=== PATIENT | female | born 1950 | race African-American/Black ===

== ENCOUNTER 2016-03-12 10:37 | Emergency (ER) | payer MEDICARE, OTHER ==
--- NOTE | 2016-03-12 11:42 | ED ---
General Adult HPI - General Chief complaint: Extremity Problem,Nontraumatic Stated complaint: blood clot in groin, left leg problem Time Seen by Provider: 03/12/16 11:29 Source: patient, RN notes reviewed Mode of arrival: ambulatory Limitations: no limitations - History of Present Illness Initial comments: Patient is a pleasant 66-year-old female presenting to the emergency department with left anterior thigh pain. Onset was around 24 hours ago. Discomfort is moderate to severe. Discomfort does increase somewhat with movement. No weakness. Patient was diagnosed with a blood clot of her left leg on January 20. Patient states she was placed on eliquis, then change to xarelto 9 days ago. No history of similar symptoms previously. Patient does have chronic neuropathy. Patient does have chronic right-sided sciatica. - Related Data Home Medications Medication Instructions Recorded Confirmed Rosuvastatin [Crestor] 20 mg PO HS 06/07/15 03/12/16 Insulin Glargine [Lantus] 15 - 18 unit SQ HS 11/09/15 03/12/16 Aspirin 81 mg PO DAILY 01/20/16 03/12/16 Insulin Aspart [NovoLOG Flexpen] 8 units SQ AC-BRKFST 01/30/16 03/12/16 Insulin Aspart [NovoLOG Flexpen] 8 units SQ AC-SUPPER 01/30/16 03/12/16 Insulin Aspart [NovoLOG Flexpen] 10 units SQ AC-LUNCH 01/30/16 03/12/16 Insulin Aspart [NovoLOG Flexpen] See Protocol SQ AC-TID 03/12/16 03/12/16 Lisinopril [Prinivil] 20 mg PO HS 03/12/16 03/12/16 Rivaroxaban [Xarelto] 20 mg PO DAILY 03/12/16 03/12/16 amLODIPine [Norvasc] 10 mg PO DAILY 03/12/16 03/12/16 Previous Rx's Medication Instructions Recorded Oxymetazoline 0.05% Nasl Ramer 2 spray NASAL BID #1 spray 02/01/16 [Afrin 0.05% Nasal Ramer] guaiFENesin [Mucinex] 600 mg PO Q12HR #20 tablet.er 02/01/16 Hydrocodone/Acetaminophen [Isabella 2 each PO Q6HR PRN #20 tab 03/12/16 5-325] Allergies Allergy/AdvReac Type Severity Reaction Status Date / Time morphine Allergy PASSES OUT Verified 03/12/16 11:47 nitroglycerin Allergy PASSES OUT Verified 03/12/16 11:47 Sulfa (Sulfonamide AdvReac Itching Verified 03/12/16 11:47 Antibiotics) Review of Systems ROS Statement: Those systems with pertinent positive or pertinent negative responses have been documented in the HPI. ROS Other: All systems not noted in ROS Statement are negative. Constitutional: Denies: fever Eyes: Denies: eye pain ENT: Denies: ear pain Respiratory: Denies: cough Cardiovascular: Denies: chest pain Endocrine: Denies: fatigue Gastrointestinal: Denies: abdominal pain Genitourinary: Denies: dysuria Musculoskeletal: Reports: back pain Skin: Denies: rash Neurological: Denies: weakness Past Medical History Past Medical History: Coronary Artery Disease (CAD), Diabetes Mellitus, Deep Vein Thrombosis (DVT), GERD/Reflux, Hyperlipidemia, Hypertension, Osteoarthritis (OA) Additional Past Medical History / Comment(s): vertigo, sinus problems, CONSTIPATION, COLLAPSED LUNG(HAD A C/T) History of Any Multi-Drug Resistant Organisms: None Reported Past Surgical History: Appendectomy, Cholecystectomy, Heart Catheterization With Stent, Hysterectomy, Tubal Ligation Additional Past Surgical History / Comment(s): hemorrhoidectomy, COLLAPSED LUNG HAD A C/T, TOSIN CATARACTS Past Anesthesia/Blood Transfusion Reactions: No Reported Reaction Date of Last Stent Placement:: Past Psychological History: No Psychological Hx Reported Smoking Status: Former smoker Past Alcohol Use History: None Reported Additional Past Alcohol Use History / Comment(s): STARTED SMOKING AT AGE 12, QUIT AT AGE 26 SMOKED 1 PPD Past Drug Use History: None Reported - Past Family History Mother Family Medical History: Hypertension, Seizure Disorder Father Family Medical History: Renal Disease Additional Family Medical History / Comment(s): kidney failure Son(s) Family Medical History: No Reported History Sister(s) Family Medical History: Cancer, Diabetes Mellitus, Hypertension General Exam Limitations: no limitations General appearance: alert, in no apparent distress Head exam: Present: atraumatic Eye exam: Present: normal appearance, PERRL ENT exam: Present: normal oropharynx Neck exam: Present: normal inspection Respiratory exam: Present: normal lung sounds bilaterally Cardiovascular Exam: Present: regular rate, normal rhythm Expanded Peripheral pulses: 1+: Femoral (R), Femoral (L), Posterior Tibialis (R), Posterior Tibialis (L), Dorsalis Pedis (R), Dorsalis Pedis (L) GI/Abdominal exam: Present: soft. Absent: tenderness Extremities exam: Present: tenderness (Left anterior thigh), pedal edema (+1 bilateral), other (Pedal pulses confirmed with Doppler.) Back exam: Present: tenderness (Bilateral sciatic region) Neurological exam: Present: alert. Absent: motor sensory deficit Psychiatric exam: Present: normal affect, normal mood Skin exam: Present: normal color, other (No skin abnormality of the left leg). Absent: rash Course Vital Signs 03/12/16 10:51 Temperature 97.6 F Pulse Rate 82 Respiratory 18 Rate Blood Pressure 142/80 O2 Sat by Pulse 100 Oximetry Medical Decision Making - Medical Decision Making Patient reexamined and resting complain bed. Patient and family updated on results and need for follow-up. - Radiology Data Radiology results: report reviewed (Ultrasound shows no deep venous thrombosis.) , image reviewed (Lumbar spine x-ray shows some disc space narrowing. No acute fracture.) Disposition Clinical Impression: Leg pain Disposition: HOME SELF-CARE Condition: Stable Instructions: Leg Pain (ED), Lumbar Radiculopathy (ED) Additional Instructions: Please follow-up to primary care physician as well as orthopedics in the next couple of days for recheck. Return for increased pain, weakness, redness, fever , swelling, worsening symptoms or other concerns. Prescriptions: Hydrocodone/Acetaminophen [Isabella 5-325] 2 each PO Q6HR PRN #20 tab PRN Reason: Pain Referrals: Mary Heath MD [Primary Care Provider] - 1-2 days Kole Kilgore DO [Doctor of Osteopathic Medicine] - 1-2 days
--- NOTE | 2016-03-12 12:48 | US ---
EXAMINATION TYPE: US venous doppler duplex LE LT DATE OF EXAM: 03/12/2016 12:23 PM COMPARISON: NONE CLINICAL HISTORY: Pain. SIDE PERFORMED: Left VESSELS IMAGED: External Iliac Vein (EIV) Common Femoral Vein Deep Femoral Vein Greater Saphenous Vein * Femoral Vein Popliteal Vein Small Saphenous Vein * Proximal Calf Veins (* superficial vessels) There appears to be some thrombus in the GSV (A superficial vein). No evidence of DVT. IMPRESSION: No evidence for left lower extremity DVT. Superficial thrombus noted.
--- NOTE | 2016-03-12 13:19 | XR ---
EXAMINATION TYPE: XR lumbar spine 2 or 3V DATE OF EXAM: 03/12/2016 1:15 PM CLINICAL HISTORY: pain TECHNIQUE: Three views of the lumbar spine are submitted. COMPARISON: None. FINDINGS: There are 5 lumbar type vertebral bodies identified. The lumbar spine shows satisfactory alignment w ithout evidence of acute fracture or dislocation. Vertebral body heights are within normal limits. Moderate degenerative disc space narrowing is noted. Grade 1 anterolisthesis L4 and L5 measuring 3 mm . Severe facet joint arthropathy. The overlying soft tissue appears unremarkable. IMPRESSION: No acute fracture or dislocation is seen in the lumbar spine. ICD 10 NO FRACTURE, INITIAL EVALUATION
[2016-03-12] MEDS ORDERED: HYDROcodone/APAP 5-325MG 1 EACH TAB PO STA (13:32)
[2016-03-12 13:57] VITALS: BP 177/86; PULSE 88; RESP 16; TEMP 97.4
== END 2016-03-12 14:02 | disposition home or self-care (01) ==
LOC: EC 10:37
DX: M54.16 Radiculopathy, lumbar region (principal); M79.652 Pain in left thigh; I25.10 Atherosclerotic heart disease of native coronary artery without angina pectoris; E11.9 Type 2 diabetes mellitus without complications; E78.5 Hyperlipidemia, unspecified; I10 Essential (primary) hypertension; Z86.718 Personal history of other venous thrombosis and embolism; Z87.891 Personal history of nicotine dependence; Z79.82 Long term (current) use of aspirin; Z79.4 Long term (current) use of insulin; Z79.899 Other long term (current) drug therapy; Z88.2 Allergy status to sulfonamides; Z88.5 Allergy status to narcotic agent; Z88.8 Allergy status to other drugs, medicaments and biological substances
CPT/HCPCS: 72100; 99284

== ENCOUNTER 2016-05-27 14:21 | Emergency (ER) | payer MEDICARE, OTHER ==
[2016-05-27 14:38] LABS: Glucose,Whole Blood 115 mg/dL (75-99)
[2016-05-27] MEDS ORDERED: ASPIRIN 325 MG TAB PO STA (15:01)
--- NOTE | 2016-05-27 15:10 | ED ---
General Adult HPI - General Chief complaint: Recheck/Abnormal Lab/Rx Stated complaint: Blood Sugar Source: patient Mode of arrival: EMS Limitations: no limitations - History of Present Illness Initial comments: 66-year-old Afro-[place] female with past medical history of CAD, DM, DVT, GERD , HLD, HTN, OA and surgical history of appendectomy, cholecystectomy, heart cath with stent, hysterectomy, and tubal ligation presented for evaluation of altered mental status. Patient states that she woke up this morning and took her insulin but hadn't eaten as she was busy preparing for Saturday. She would occasionally try Little bits and pieces of the food but did not have a full meal. She began to feel very tired and laid down to take a nap. She awoke to find EMS in the house who had Sterling given her glucose through her IV. She returned to baseline and was brought to the emergency department for further treatment and evaluation. She denies any recent chest pain, nausea, vomiting, fevers, chills, diarrhea/constipation, dysuria, abdominal pain. - Related Data Home Medications Medication Instructions Recorded Confirmed Rosuvastatin [Crestor] 20 mg PO HS 06/07/15 05/27/16 Insulin Glargine [Lantus] 15 - 18 unit SQ HS 11/09/15 05/27/16 Aspirin 81 mg PO DAILY 01/20/16 05/27/16 Insulin Aspart [NovoLOG Flexpen] 8 units SQ AC-BRKFST 01/30/16 05/27/16 Insulin Aspart [NovoLOG Flexpen] 10 units SQ AC-LUNCH 01/30/16 05/27/16 Insulin Aspart [NovoLOG Flexpen] 15 units SQ AC-SUPPER 01/30/16 05/27/16 amLODIPine [Norvasc] 5 mg PO DAILY 05/27/16 05/27/16 Allergies Allergy/AdvReac Type Severity Reaction Status Date / Time morphine Allergy PASSES OUT Verified 05/27/16 14:43 nitroglycerin Allergy PASSES OUT Verified 05/27/16 14:43 Sulfa (Sulfonamide AdvReac Itching Verified 05/27/16 14:43 Antibiotics) Review of Systems ROS Statement: Those systems with pertinent positive or pertinent negative responses have been documented in the HPI. ROS Other: All systems not noted in ROS Statement are negative. Constitutional: Denies: fever, chills Eyes: Denies: eye pain, vision change ENT: Denies: ear pain, throat pain Respiratory: Denies: cough, dyspnea Cardiovascular: Denies: chest pain, palpitations Gastrointestinal: Denies: abdominal pain, nausea, vomiting, diarrhea, constipation Genitourinary: Denies: urgency, dysuria Musculoskeletal: Denies: back pain, arthralgia, myalgia Skin: Denies: rash, lesions Neurological: Reports: other (Altered mental status). Denies: headache, weakness, numbness, paresthesias, confusion Psychiatric: Denies: anxiety, depression Hematological/Lymphatic: Denies: easy bleeding, easy bruising Past Medical History Past Medical History: Coronary Artery Disease (CAD), Diabetes Mellitus, Deep Vein Thrombosis (DVT), GERD/Reflux, Hyperlipidemia, Hypertension, Osteoarthritis (OA) Additional Past Medical History / Comment(s): vertigo, sinus problems, CONSTIPATION, COLLAPSED LUNG(HAD A C/T) History of Any Multi-Drug Resistant Organisms: None Reported Past Surgical History: Appendectomy, Cholecystectomy, Heart Catheterization With Stent, Hysterectomy, Tubal Ligation Additional Past Surgical History / Comment(s): hemorrhoidectomy, COLLAPSED LUNG HAD A C/T, TOSIN CATARACTS Past Anesthesia/Blood Transfusion Reactions: No Reported Reaction Date of Last Stent Placement:: Past Psychological History: No Psychological Hx Reported Smoking Status: Former smoker Past Alcohol Use History: None Reported Additional Past Alcohol Use History / Comment(s): STARTED SMOKING AT AGE 12, QUIT AT AGE 26 SMOKED 1 PPD Past Drug Use History: None Reported - Past Family History Mother Family Medical History: Hypertension, Seizure Disorder Father Family Medical History: Renal Disease Additional Family Medical History / Comment(s): kidney failure Son(s) Family Medical History: No Reported History Sister(s) Family Medical History: Cancer, Diabetes Mellitus, Hypertension General Exam Limitations: no limitations General appearance: alert, in no apparent distress Head exam: Present: atraumatic, normocephalic, normal inspection Eye exam: Present: normal appearance, PERRL, EOMI. Absent: scleral icterus, conjunctival injection, periorbital swelling ENT exam: Present: normal exam, mucous membranes moist Neck exam: Present: normal inspection. Absent: tenderness, meningismus, lymphadenopathy Respiratory exam: Present: normal lung sounds bilaterally. Absent: respiratory distress, wheezes, rales, rhonchi, stridor Cardiovascular Exam: Present: regular rate, normal rhythm, normal heart sounds. Absent: systolic murmur, diastolic murmur, rubs, gallop, clicks GI/Abdominal exam: Present: soft, normal bowel sounds. Absent: distended, tenderness, guarding, rebound, rigid Rectal exam: Present: deferred Extremities exam: Present: normal inspection, full ROM, normal capillary refill. Absent: tenderness, pedal edema, joint swelling, calf tenderness Back exam: Present: normal inspection Neurological exam: Present: alert, oriented X3, CN II-XII intact Psychiatric exam: Present: normal affect, normal mood Skin exam: Present: warm, dry, intact, normal color. Absent: rash Course Vital Signs 05/27/16 05/27/16 14:25 15:33 Temperature 96.9 F L Pulse Rate 62 67 Respiratory 16 18 Rate Blood Pressure 168/84 176/86 O2 Sat by Pulse 99 100 Oximetry EKG Findings - EKG Comments: EKG Findings:: Normal sinus rhythm with PVCs and a ventricular rate of 60, JEAN 164, QRS 106, QT/QTc 430/430. Medical Decision Making - Medical Decision Making 66-year-old -[place] female with past medical history of insulin- dependent diabetes presenting for evaluation of altered mental status. She took her 8 units of NovoLog today but didn't have any meals as she was gone about her preparation for Saturday. She laid down to take a nap and was woken by EMS who required an IV to give her insulin. Initial blood glucose was 21 and increased to greater than 250 after providing IV dextrose. She denies any recent illnesses or feeling unwell. Just feeling a little tired lately. On physical examination there are no abnormalities. This is likely due to her taking her insulin this morning and not having any food however will obtain a workup to rule out any infectious etiology. Labs revealed no significant abnormalities and chest x-ray showed no acute process. The patient's blood sugar remained inappropriate ranges and she was also given food during stay. Physical exam did not change and she was informed of all results. She was also informed that should be discharged with instructions to follow-up with her primary care physician but to return if her symptoms should worsen or persist. The patient and family acknowledged an understanding of this information and agreed with this plan of care. - Lab Data Result diagrams: 05/27/16 15:24 04/16/17 15:24 Lab Results 05/27/16 05/27/16 05/27/16 Range/Units 14:32 15:24 15:24 WBC 3.2 L (3.8-10.6) k/uL RBC 4.17 (3.80-5.40) m/uL Hgb 11.5 (11.4-16.0) gm/dL Hct 37.3 (34.0-46.0) % MCV 89.5 (80.0-100.0) fL MCH 27.6 (25.0-35.0) pg MCHC 30.9 L (31.0-37.0) g/dL RDW 14.4 (11.5-15.5) % Plt Count 235 (150-450) k/uL Neutrophils % 40 % Lymphocytes % 49 % Monocytes % 5 % Eosinophils % 3 % Basophils % 1 % Neutrophils # 1.3 (1.3-7.7) k/uL Lymphocytes # 1.5 (1.0-4.8) k/uL Monocytes # 0.2 (0-1.0) k/uL Eosinophils # 0.1 (0-0.7) k/uL Basophils # 0.0 (0-0.2) k/uL Manual Slide Review Performed Sodium 142 (137-145) mmol/L Potassium 3.3 L (3.5-5.1) mmol/L Chloride 103 (98-107) mmol/L Carbon Dioxide 31 H (22-30) mmol/L Anion Gap 8 mmol/L BUN 16 (7-17) mg/dL Creatinine 0.64 (0.52-1.04) mg/dL Est GFR (MDRD) Af Amer >60 (>60 ml/min/1.73 sqM) Est GFR (MDRD) Non-Af >60 (>60 ml/min/1.73 sqM) Glucose 93 (74-99) mg/dL POC Glucose (mg/dL) 115 H (75-99) mg/dL POC Glu Manager Interventional ID Calcium 9.1 (8.4-10.2) mg/dL Troponin I (0.000-0.034) ng/mL Urine Color Urine Appearance (Clear) Urine pH (5.0-8.0) Ur Specific Franklin (1.001-1.035) Urine Protein (Negative) Urine Glucose (UA) (Negative) Urine Ketones (Negative) Urine Blood (Negative) Urine Nitrite (Negative) Urine Bilirubin (Negative) Urine Urobilinogen (<2.0) mg/dL Ur Leukocyte Esterase (Negative) Urine RBC (0-5) /hpf Urine WBC (0-5) /hpf Ur Squamous Epith Cells (0-4) /hpf Urine Bacteria (None) /hpf Urine Mucus (None) /hpf 05/27/16 05/27/16 05/27/16 Range/Units 15:24 15:24 15:25 WBC (3.8-10.6) k/uL RBC (3.80-5.40) m/uL Hgb (11.4-16.0) gm/dL Hct (34.0-46.0) % MCV (80.0-100.0) fL MCH (25.0-35.0) pg MCHC (31.0-37.0) g/dL RDW (11.5-15.5) % Plt Count (150-450) k/uL Neutrophils % % Lymphocytes % % Monocytes % % Eosinophils % % Basophils % % Neutrophils # (1.3-7.7) k/uL Lymphocytes # (1.0-4.8) k/uL Monocytes # (0-1.0) k/uL Eosinophils # (0-0.7) k/uL Basophils # (0-0.2) k/uL Manual Slide Review Sodium (137-145) mmol/L Potassium (3.5-5.1) mmol/L Chloride (98-107) mmol/L Carbon Dioxide (22-30) mmol/L Anion Gap mmol/L BUN (7-17) mg/dL Creatinine (0.52-1.04) mg/dL Est GFR (MDRD) Af Amer (>60 ml/min/1.73 sqM) Est GFR (MDRD) Non-Af (>60 ml/min/1.73 sqM) Glucose (74-99) mg/dL POC Glucose (mg/dL) 95 (75-99) mg/dL POC Glu Manager Interventional ID Maria Dolores Jacquie Calcium (8.4-10.2) mg/dL Troponin I <0.012 (0.000-0.034) ng/mL Urine Color Light Yellow Urine Appearance Cloudy H (Clear) Urine pH 7.0 (5.0-8.0) Ur Specific Franklin 1.012 (1.001-1.035) Urine Protein Negative (Negative) Urine Glucose (UA) 2+ H (Negative) Urine Ketones Negative (Negative) Urine Blood Negative (Negative) Urine Nitrite Negative (Negative) Urine Bilirubin Negative (Negative) Urine Urobilinogen <2.0 (<2.0) mg/dL Ur Leukocyte Esterase Negative (Negative) Urine RBC 1 (0-5) /hpf Urine WBC 2 (0-5) /hpf Ur Squamous Epith Cells 1 (0-4) /hpf Urine Bacteria Moderate H (None) /hpf Urine Mucus Rare H (None) /hpf 05/27/16 Range/Units 16:00 WBC (3.8-10.6) k/uL RBC (3.80-5.40) m/uL Hgb (11.4-16.0) gm/dL Hct (34.0-46.0) % MCV (80.0-100.0) fL MCH (25.0-35.0) pg MCHC (31.0-37.0) g/dL RDW (11.5-15.5) % Plt Count (150-450) k/uL Neutrophils % % Lymphocytes % % Monocytes % % Eosinophils % % Basophils % % Neutrophils # (1.3-7.7) k/uL Lymphocytes # (1.0-4.8) k/uL Monocytes # (0-1.0) k/uL Eosinophils # (0-0.7) k/uL Basophils # (0-0.2) k/uL Manual Slide Review Sodium (137-145) mmol/L Potassium (3.5-5.1) mmol/L Chloride (98-107) mmol/L Carbon Dioxide (22-30) mmol/L Anion Gap mmol/L BUN (7-17) mg/dL Creatinine (0.52-1.04) mg/dL Est GFR (MDRD) Af Amer (>60 ml/min/1.73 sqM) Est GFR (MDRD) Non-Af (>60 ml/min/1.73 sqM) Glucose (74-99) mg/dL POC Glucose (mg/dL) 164 H (75-99) mg/dL POC Glu Manager Interventional ID Jacquie Whitten Calcium (8.4-10.2) mg/dL Troponin I (0.000-0.034) ng/mL Urine Color Urine Appearance (Clear) Urine pH (5.0-8.0) Ur Specific Franklin (1.001-1.035) Urine Protein (Negative) Urine Glucose (UA) (Negative) Urine Ketones (Negative) Urine Blood (Negative) Urine Nitrite (Negative) Urine Bilirubin (Negative) Urine Urobilinogen (<2.0) mg/dL Ur Leukocyte Esterase (Negative) Urine RBC (0-5) /hpf Urine WBC (0-5) /hpf Ur Squamous Epith Cells (0-4) /hpf Urine Bacteria (None) /hpf Urine Mucus (None) /hpf Disposition Clinical Impression: Hypoglycemia, Altered mental status, unspecified Disposition: HOME SELF-CARE Condition: Stable Instructions: Hypoglycemia in a Person with Diabetes (ED) Time of Disposition: 16:39
[2016-05-27 15:26] LABS: Glucose,Whole Blood 95 mg/dL (75-99)
[2016-05-27 15:37] LABS: Basophils % (A) 1 %; CH 27.8; CHCM 31.2; Eosinophils # (A) 0.1 k/uL (0-0.7); Eosinophils % (A) 3 %; HCT 37.3 % (34.0-46.0); HDW 2.19; HGB 11.5 gm/dL (11.4-16.0); Luc # (Auto) 0.07; Luc % (Auto) 2; Lymphocytes # (A) 1.5 k/uL (1.0-4.8); Lymphocytes % (A) 49 %; MCH 27.6 pg (25.0-35.0); MCHC 30.9 g/dL (31.0-37.0); MCV 89.5 fL (80.0-100.0); Mean Platelet Volume 8.5; Monocytes # (A) 0.2 k/uL (0-1.0); Monocytes % (A) 5 %; Neutrophils # (A) 1.3 k/uL (1.3-7.7); Neutrophils % (A) 40 %; RBC 4.17 m/uL (3.80-5.40); RDW 14.4 % (11.5-15.5); WBC 3.2 k/uL (3.8-10.6); WBC (Perox) 2.99
[2016-05-27 15:47] LABS: Anion Gap 8 mmol/L; Appearance,Urine Cloudy (Clear); Bacteria,Urine Moderate /hpf; Bilirubin,Urine Negative (Negative); Blood Urea Nitrogen 16 mg/dL (7-17); Calcium 9.1 mg/dL (8.4-10.2); Carbon Dioxide 31 mmol/L (22-30); Chloride 103 mmol/L (98-107); Glucose 93 mg/dL (74-99); Glucose,Urine (UA) 2+ (Negative); Ketones,Urine Negative (Negative); Leukocyte Esterase,Urine Negative (Negative); Mucus,Urine Rare /hpf; Nitrite,Urine Negative (Negative); Non-African American GFR(MDRD) >60 (>60 ml/min/1.73 sqM); Particle Count 89573; Potassium 3.3 mmol/L (3.5-5.1); Protein,Urine Negative (Negative); RBC,Urine 1 /hpf (0-5); Sodium 142 mmol/L (137-145); Specific Gravity,Urine 1.012 (1.001-1.035); Squamous Epithelial Cell,Urine 1 /hpf (0-4); UA Billing (MACRO vs. MICRO) MICRO; Urobilinogen,Urine <2.0 mg/dL (<2.0); WBC,Urine 2 /hpf (0-5)
--- NOTE | 2016-05-27 15:47 | XR ---
EXAMINATION TYPE: XR chest 2V DATE OF EXAM: 05/27/2016 3:40 PM COMPARISON: 01/29/2016 HISTORY: Weakness TECHNIQUE: Frontal and lateral views of the chest are obtained. FINDINGS: There is no heart failure nor confluent pneumonic infiltrate. Thoracic aorta is atheromato us. There is no sign of pleural effusion. There is spurring in the thoracic spine. IMPRESSION: No active cardiopulmonary disease. No change.
[2016-05-27 15:54] LABS: Manual Review Performed
[2016-05-27 16:04] LABS: Glucose,Whole Blood 164 mg/dL (75-99)
[2016-05-27 16:41] LABS: Glucose,Whole Blood 198 mg/dL (75-99)
[2016-05-27 17:04] VITALS: BP 126/78; PULSE 78; RESP 16; TEMP 97.8
== END 2016-05-27 17:03 | disposition home or self-care (01) ==
LOC: EC 14:21
DX: E11.649 Type 2 diabetes mellitus with hypoglycemia without coma (principal); R41.82 Altered mental status, unspecified; I10 Essential (primary) hypertension; E78.5 Hyperlipidemia, unspecified; M19.90 Unspecified osteoarthritis, unspecified site; I25.10 Atherosclerotic heart disease of native coronary artery without angina pectoris; Z87.891 Personal history of nicotine dependence; Z79.4 Long term (current) use of insulin; Z79.82 Long term (current) use of aspirin; Z79.899 Other long term (current) drug therapy; Z88.2 Allergy status to sulfonamides; Z88.5 Allergy status to narcotic agent; Z88.8 Allergy status to other drugs, medicaments and biological substances; Z83.3 Family history of diabetes mellitus
CPT/HCPCS: 36415; 71020; 80048; 81001; 84484; 85025; 93005; 99285

== ENCOUNTER → 2016-05-30 | Outpatient (CLI) | payer MEDICARE, OTHER ==
--- NOTE | 2016-05-30 14:20 | US ---
EXAMINATION TYPE: US venous doppler duplex LE BI DATE OF EXAM: 05/30/2016 2:13 PM COMPARISON: Ultrasound CLINICAL HISTORY: I82.492 ACUTE EMBOLISM AND THROMBOSIS OF DEEP VEIN OF LT LE. Right leg pain x 1 yea r, history of superficial thrombus in GSV, not on blood thinners SIDE PERFORMED: Bilateral TECHNIQUE: The lower extremity deep venous system is examined utilizing real time linear array sonog ar with graded compression, doppler sonography and color-flow sonography. VESSELS IMAGED: External Iliac Vein (EIV) Common Femoral Vein Deep Femoral Vein Greater Saphenous Vein * Femoral Vein Popliteal Vein Small Saphenous Vein * Proximal Calf Veins (* superficial vessels) Right Leg: Appears negative for DVT Left Leg: Appears negative for DVT IMPRESSION: No evidence for DVT at this time.
== END | disposition home or self-care (01) ==
LOC: RADUSWWP 13:44
PROVIDERS: ATTEND Internal Medicine
DX: I82.492 Acute embolism and thrombosis of other specified deep vein of left lower extremity (principal)
CPT/HCPCS: 93970

== ENCOUNTER 2016-09-15 06:37 | Inpatient (IN) | payer MEDICARE, OTHER ==
--- NOTE | 2016-09-15 07:05 | ED ---
Chest Pain HPI - General Source: patient Mode of arrival: wheelchair Limitations: no limitations <Kasi Guzman - Last Filed: 09/15/16 07:04> - General Source: patient, family, RN notes reviewed Limitations: no limitations <Stef Gutierrez - Last Filed: 09/15/16 11:46> - General Chief Complaint: Chest Pain Stated Complaint: Chest pain - History of Present Illness Initial Comments: Patient is a pleasant 66-year-old female presenting to the emergency department with concerns for high blood pressure. Blood pressure at home has been as high as 195/110. Patient admits to being somewhat upset yesterday because the doctor was upset her for not using her sleep apnea machine. Patient states she has not been using it because it looks like a lease examiner's mask. Patient states she did not sleep well last night and checked her blood pressure multiple times. Patient states she did have an episode of chest discomfort on arrival to the emergency department. Patient states it just lasted a couple minutes. Discomfort felt sharp and tight. Patient did feel somewhat short of breath. No nausea or diaphoresis. Discomfort is now resolved. Patient did not take her blood pressure medicine this morning. (Stef Gutierrez) - Related Data Home Medications Medication Instructions Recorded Confirmed Rosuvastatin [Crestor] 20 mg PO HS 06/07/15 09/15/16 Insulin Glargine [Lantus] 15 - 18 unit SQ HS 11/09/15 09/15/16 Aspirin 81 mg PO DAILY 01/20/16 09/15/16 Insulin Aspart [NovoLOG Flexpen] 8 units SQ AC-BRKFST 01/30/16 09/15/16 Insulin Aspart [NovoLOG Flexpen] 10 units SQ AC-LUNCH 01/30/16 09/15/16 Insulin Aspart [NovoLOG Flexpen] 15 units SQ AC-SUPPER 01/30/16 09/15/16 amLODIPine [Norvasc] 5 mg PO DAILY 05/27/16 09/15/16 Allergies Allergy/AdvReac Type Severity Reaction Status Date / Time morphine Allergy PASSES OUT Verified 09/15/16 10:20 nitroglycerin Allergy PASSES OUT Verified 09/15/16 10:20 Sulfa (Sulfonamide AdvReac Itching Verified 09/15/16 10:20 Antibiotics) Review of Systems ROS Other: All systems not noted in ROS Statement are negative. <Kasi Guzman - Last Filed: 09/15/16 07:04> ROS Other: All systems not noted in ROS Statement are negative. Constitutional: Denies: fever Eyes: Denies: eye pain ENT: Denies: ear pain Respiratory: Denies: cough Cardiovascular: Reports: chest pain Endocrine: Denies: fatigue Gastrointestinal: Denies: abdominal pain Genitourinary: Denies: urgency Musculoskeletal: Denies: back pain Skin: Denies: rash Neurological: Denies: weakness <Stef Gutierrez - Last Filed: 09/15/16 11:46> ROS Statement: Those systems with pertinent positive or pertinent negative responses have been documented in the HPI. EKG Findings - EKG Results: EKG: interpreted by ERMD, sinus rhythm (EKG was read at 6:47 AM EKG shows a normal sinus rhythm of 80 MO interval 142 QRS 96 QT since QTC is 368/424 nonspecific anteroseptal changes. This is compared with EKG dated 05/27/16.) <Kasi Guzman Last Filed: 09/15/16 07:04> Past Medical History Past Medical History: Coronary Artery Disease (CAD), Diabetes Mellitus, Deep Vein Thrombosis (DVT), GERD/Reflux, Hyperlipidemia, Hypertension, Osteoarthritis (OA) Additional Past Medical History / Comment(s): vertigo, sinus problems, CONSTIPATION, COLLAPSED LUNG(HAD A C/T) History of Any Multi-Drug Resistant Organisms: None Reported Past Surgical History: Appendectomy, Cholecystectomy, Heart Catheterization With Stent, Hysterectomy, Tubal Ligation Additional Past Surgical History / Comment(s): hemorrhoidectomy, COLLAPSED LUNG HAD A C/T, TOSIN CATARACTS Past Anesthesia/Blood Transfusion Reactions: No Reported Reaction Date of Last Stent Placement:: Past Psychological History: No Psychological Hx Reported Smoking Status: Former smoker Past Alcohol Use History: None Reported Past Drug Use History: None Reported - Past Family History Mother Family Medical History: Hypertension, Seizure Disorder Father Family Medical History: Renal Disease Additional Family Medical History / Comment(s): kidney failure Son(s) Family Medical History: No Reported History Sister(s) Family Medical History: Cancer, Diabetes Mellitus, Hypertension <Kasi Guzman Last Filed: 09/15/16 07:04> General Exam Limitations: no limitations <Kasi Guzman Filed: 09/15/16 07:04> Limitations: no limitations General appearance: alert, in no apparent distress Head exam: Present: atraumatic Eye exam: Present: normal appearance, PERRL ENT exam: Present: normal oropharynx Neck exam: Present: normal inspection Respiratory exam: Present: normal lung sounds bilaterally Cardiovascular Exam: Present: regular rate, normal rhythm Expanded Peripheral pulses: 2+: Radial (R), Radial (L), Posterior Tibialis (R), Posterior Tibialis (L) GI/Abdominal exam: Present: soft. Absent: tenderness Extremities exam: Present: normal inspection. Absent: pedal edema, calf tenderness Neurological exam: Present: alert Psychiatric exam: Present: normal affect, normal mood Skin exam: Present: normal color <Stef Gutierrez - Last Filed: 09/15/16 11:46> Course <Kasi Guzman - Last Filed: 09/15/16 07:04> <Stef Gutierrez - Last Filed: 09/15/16 11:46> Vital Signs 09/15/16 09/15/16 09/15/16 06:48 07:15 07:20 Temperature 98.2 F Pulse Rate 80 Respiratory 20 69 H Rate Blood Pressure 206/108 226/91 187/84 O2 Sat by Pulse 100 95 Oximetry 09/15/16 09/15/16 09/15/16 08:00 09:00 10:00 Temperature Pulse Rate 68 66 71 Respiratory 18 17 18 Rate Blood Pressure 183/87 178/88 218/93 O2 Sat by Pulse 100 100 99 Oximetry 09/15/16 10:56 Temperature Pulse Rate 76 Respiratory 18 Rate Blood Pressure 198/106 O2 Sat by Pulse 100 Oximetry - Reevaluation(s) Reevaluation #1: 09/15/16 11:45 Computed tomography scan of the chest negative for pulmonary embolism. Patient reexamined in updated. Case was discussed with Dr. Heath, who will admit his patient. He did want 20 of labetalol given. Blood pressure does not improve patient may need beta ynes infusion and ICU admission. This time blood pressure has further improved systolic blood pressure 199. Patient will be started on oral beta blockers as well. (Stef Gutierrez) Critical Care Time Critical Care Time: Yes Total Critical Care Time: 32 <Stef Gutierrez - Last Filed: 09/15/16 11:46> Disposition <Kasi Guzman - Last Filed: 09/15/16 07:04> Decision Time: 11:46 <Stef Gutierrez - Last Filed: 09/15/16 11:46> Clinical Impression: Hypertensive urgency, Chest pain Disposition: ADMITTED IP TO THIS [facility] Referrals: Nonstaff,Physician [REFERRING] - 1-2 days
[2016-09-15] MEDS ORDERED: amLODIPine 5 MG TAB PO STA ×2 (07:23→10:07)
[2016-09-15] MEDS ORDERED: ASPIRIN 81 MG CHEW PO STA (07:25)
[2016-09-15 07:58] LABS: Basophils % (A) 1 %; CH 28.3; CHCM 32.1; Eosinophils # (A) 0.1 k/uL (0-0.7); Eosinophils % (A) 3 %; HCT 38.3 % (34.0-46.0); HGB 12.2 gm/dL (11.4-16.0); Luc # (Auto) 0.11; Luc % (Auto) 3; Lymphocytes # (A) 1.5 k/uL (1.0-4.8); Lymphocytes % (A) 45 %; MCH 28.3 pg (25.0-35.0); MCHC 31.9 g/dL (31.0-37.0); MCV 88.6 fL (80.0-100.0); Mean Platelet Volume 9.1; Monocytes # (A) 0.2 k/uL (0-1.0); Monocytes % (A) 7 %; Neutrophils # (A) 1.3 k/uL (1.3-7.7); Neutrophils % (A) 41 %; RBC 4.32 m/uL (3.80-5.40); WBC 3.2 k/uL (3.8-10.6); WBC (Perox) 3.24
[2016-09-15 08:12] LABS: ALT 29 U/L (9-52); AST 24 U/L (14-36); Alkaline Phosphatase 107 U/L (38-126); Anion Gap 7 mmol/L; Blood Urea Nitrogen 16 mg/dL (7-17); Calcium 9.2 mg/dL (8.4-10.2); Carbon Dioxide 31 mmol/L (22-30); Chloride 101 mmol/L (98-107); Glucose 244 mg/dL (74-99); Magnesium 1.8 mg/dL (1.6-2.3); Non-African American GFR(MDRD) >60 (>60 ml/min/1.73 sqM); Sodium 139 mmol/L (137-145); Total Bilirubin 0.4 mg/dL (0.2-1.3); Total Protein 6.4 g/dL (6.3-8.2)
[2016-09-15 08:19] LABS: Partial Thromboplastin Time 22.4 sec (22.0-30.0); Prothrombin Time 9.9 sec (9.0-12.0)
[2016-09-15 08:23] LABS: Creatine Kinase 234 U/L (30-135)
--- NOTE | 2016-09-15 08:27 | XR ---
EXAMINATION TYPE: XR chest 2V DATE OF EXAM: 09/15/2016 HISTORY: Chest Pain. REFERENCE: Previous study dated 05/27/2016. FINDINGS: The lungs are clear. Pleural spaces are clear. Heart size is within normal limits. IMPRESSION: NO ACUTE INTRATHORACIC ABNORMALITY.
[2016-09-15] MEDS ORDERED: RX INFO: IV CONTRAST WAS GIVEN 1 EACH MISC MISCELLANE PRN (08:31)
[2016-09-15 08:35] LABS: Troponin I <0.012 ng/mL (0.000-0.034)
[2016-09-15 08:36] LABS: Creatine Kinase MB 3.6 ng/mL (0.0-2.4)
--- NOTE | 2016-09-15 09:51 | CT ---
EXAMINATION TYPE: CT angio chest DATE OF EXAM: 09/15/2016 9:43 AM COMPARISON: Previous study dated 01/30/2016. HISTORY: chest pain CT DLP: 200.9 mGycm Automated exposure control for dose reduction was used. CONTRAST: CTA scan of the thorax is performed with IV Contrast, patient injected with 74 mL of Omnipaque 350, p ulmonary embolism protocol. . FINDINGS: There is some dependent atelectasis within the dependent portions of lungs. Lungs are other quiñonez clear. There is no significant axillary, internal mammary, mediastinal or hilar adenopathy. There is no evidence of pulmonary embolus. The aorta is normal in caliber without evidence of dissection. There is no pleural or The heart is mildly enlarged. There is coronary artery and other vascular calcifications. Visualized portions of the upper abdomen are unremarkable. There is hypertrophic spondylosis within the spine. IMPRESSION: 1. THIS EXAMINATION IS NEGATIVE FOR PULMONARY EMBOLUS. 2. CARDIOMEGALY. 3. DEGENERATIVE CHANGES WITHIN THE SPINE.
[2016-09-15] MEDS ORDERED: LABETALOL 5 MG/ML VIAL MDV IVP STA (11:14)
[2016-09-15] MEDS ORDERED: hydrALAZINE HCL 20 MG/ML 1 ML VIAL IVP PRN (11:49)
[2016-09-15 12:36] VITALS: RESP 16
[2016-09-15 12:49] LABS: Glucose,Whole Blood 264 mg/dL (75-99)
[2016-09-15] MEDS: METOPROLOL TARTRATE 25 MG TAB PO SCH ×2 (13:07→20:09)
[2016-09-15] MEDS: INSULIN LISPRO (humaLOG) 300 UNIT/3 ML VIAL SQ SCH (13:07)
--- NOTE | 2016-09-15 13:38 | P.CRDCN ---
History of Present Illness Consult date: 09/15/16 Chief complaint: Chest discomfort History of present illness: This is a pleasant 66-year-old -[place] female patient who follows with Dr. Hernandez as an outpatient with a known history of CAD and prior stenting of the PDA of RCA 2010, diabetes, hypertension, and possible sleep apnea, came in to the hospital because of uncontrolled hypertension. The patient states that over the last several days her blood pressure has been out of control. The systolic blood pressure was more than 200 mmHg. Beside that, she has been experiencing intermittent episodes of sharp chest discomfort of brief duration. The patient stated that she was taking her blood pressure medications at home but she was not compliant with her BiPAP machine. At home the patient was on amlodipine at 5 mg daily which was assumed and metoprolol was added to the current medical treatment. The blood pressure has been better controlled. The patient had an EKG showed sinus rhythm with early repolarization. She underwent a chest x-ray which showed no acute abnormalities. She had also CTA showed no PE. The first set of cardiac enzymes came in to be normal. Past Medical History Past Medical History: Coronary Artery Disease (CAD), Diabetes Mellitus, Deep Vein Thrombosis (DVT), GERD/Reflux, Hyperlipidemia, Hypertension, Osteoarthritis (OA) Additional Past Medical History / Comment(s): vertigo, sinus problems, CONSTIPATION, COLLAPSED LUNG(HAD A C/T) History of Any Multi-Drug Resistant Organisms: None Reported Past Surgical History: Appendectomy, Cholecystectomy, Heart Catheterization With Stent, Hysterectomy, Tubal Ligation Additional Past Surgical History / Comment(s): hemorrhoidectomy, COLLAPSED LUNG HAD A C/T, TOSIN CATARACTS Past Anesthesia/Blood Transfusion Reactions: No Reported Reaction Date of Last Stent Placement:: Past Psychological History: No Psychological Hx Reported Smoking Status: Former smoker Past Alcohol Use History: None Reported Past Drug Use History: None Reported - Past Family History Mother Family Medical History: Hypertension, Seizure Disorder Father Family Medical History: Renal Disease Additional Family Medical History / Comment(s): kidney failure Son(s) Family Medical History: No Reported History Sister(s) Family Medical History: Cancer, Diabetes Mellitus, Hypertension Medications and Allergies Home Medications Medication Instructions Recorded Confirmed Type Rosuvastatin [Crestor] 20 mg PO HS 06/07/15 09/15/16 History Insulin Glargine [Lantus] 15 - 18 unit SQ HS 11/09/15 09/15/16 History Aspirin 81 mg PO DAILY 01/20/16 09/15/16 History Insulin Aspart [NovoLOG Flexpen] 8 units SQ AC-BRKFST 01/30/16 09/15/16 History Insulin Aspart [NovoLOG Flexpen] 10 units SQ AC-LUNCH 01/30/16 09/15/16 History Insulin Aspart [NovoLOG Flexpen] 15 units SQ AC-SUPPER 01/30/16 09/15/16 History amLODIPine [Norvasc] 5 mg PO DAILY 05/27/16 09/15/16 History Allergies Allergy/AdvReac Type Severity Reaction Status Date / Time morphine Allergy PASSES OUT Verified 09/15/16 10:20 nitroglycerin Allergy PASSES OUT Verified 09/15/16 10:20 Sulfa (Sulfonamide AdvReac Itching Verified 09/15/16 10:20 Antibiotics) Physical Exam Vitals: Vital Signs Temp Pulse Pulse Resp BP BP Pulse Ox 09/15/16 13:00 98.2 F 74 16 149/86 100 09/15/16 12:34 74 16 141/73 100 09/15/16 12:12 74 18 149/86 100 09/15/16 12:00 74 18 149/86 100 09/15/16 10:56 76 18 198/106 100 09/15/16 10:00 71 18 218/93 99 09/15/16 09:00 66 17 178/88 100 09/15/16 08:00 68 18 183/87 100 09/15/16 07:20 69 H 187/84 09/15/16 07:15 226/91 95 09/15/16 06:48 98.2 F 80 20 206/108 100 Intake and Output 09/14/16 09/15/16 09/15/16 22:59 06:59 14:59 Other: Weight 70.307 kg - Constitutional General appearance: no acute distress - Respiratory Respiratory: bilateral: CTA - Cardiovascular Rhythm: regular Heart sounds: normal: S1, S2 Results 09/15/16 06:50 09/15/16 06:50 Cardiac Enzymes 09/15/16 09/15/16 Range/Units 06:50 06:50 AST 24 (14-36) U/L CK-MB (CK-2) 3.6 H* (0.0-2.4) ng/mL Troponin I <0.012 (0.000-0.034) ng/mL Coagulation 09/15/16 Range/Units 06:50 PT 9.9 (9.0-12.0) sec APTT 22.4 (22.0-30.0) sec CBC 09/15/16 Range/Units 06:50 WBC 3.2 L (3.8-10.6) k/uL RBC 4.32 (3.80-5.40) m/uL Hgb 12.2 (11.4-16.0) gm/dL Hct 38.3 (34.0-46.0) % Plt Count 242 (150-450) k/uL Comprehensive Metabolic Panel 09/15/16 Range/Units 06:50 Sodium 139 (137-145) mmol/L Potassium 4.0 (3.5-5.1) mmol/L Chloride 101 (98-107) mmol/L Carbon Dioxide 31 H (22-30) mmol/L BUN 16 (7-17) mg/dL Creatinine 0.83 (0.52-1.04) mg/dL Glucose 244 H (74-99) mg/dL Calcium 9.2 (8.4-10.2) mg/dL AST 24 (14-36) U/L ALT 29 (9-52) U/L Alkaline Phosphatase 107 (38-126) U/L Total Protein 6.4 (6.3-8.2) g/dL Albumin 3.5 (3.5-5.0) g/dL Current Medications Generic Name Dose Route Start Last Admin Trade Name Freq PRN Reason Stop Dose Admin Amlodipine Besylate 5 mg 09/16/16 09:00 Norvasc PO DAILY [facility] Aspirin 81 mg 09/16/16 09:00 Aspirin PO DAILY [facility] Atorvastatin Calcium 40 mg 09/15/16 21:00 Lipitor PO HS [facility] Enoxaparin Sodium 40 mg 09/16/16 09:00 Lovenox SQ DAILY [facility] Hydralazine HCl 10 mg 09/15/16 11:49 Apresoline IVP Q6HR PRN Blood Pressure - High Insulin Glargine 18 unit 09/15/16 21:00 Lantus SQ HS [facility] Insulin Human Lispro 8 unit 09/16/16 07:30 Humalog SQ AC-BRKFST [facility] Insulin Human Lispro 15 unit 09/15/16 17:30 Humalog SQ AC-SUPPER [facility] Insulin Human Lispro 10 unit 09/15/16 12:50 09/15/16 13:07 Humalog SQ 10 unit AC-LUNCH [facility] Administration Metoprolol Tartrate 25 mg 09/15/16 11:45 09/15/16 13:07 Lopressor PO 25 mg BID [facility] Administration Miscellaneous Information 1 each 09/15/16 08:31 Rx Info: Iv Contrast Was Given MISCELLANE 09/17/16 08:31 DAILY PRN Per Protocol Sodium Chloride 10 ml 09/15/16 21:00 Saline Flush IV BID [facility] Intake and Output 09/14/16 09/15/16 09/15/16 22:59 06:59 14:59 Other: Weight 70.307 kg 09/15/16 06:50 09/15/16 06:50 Assessment and Plan Plan: This is a pleasant 66-year-old -[place] female patient with a known CAD as described above, hypertension, and possible obstructive sleep apnea was not using her BiPAP machine at home was admitted with what it seems to be hypertensive emergency. The Norvasc was restarted. Metoprolol was added to the current medical treatment. Patient also is on hydralazine IV when necessary. We'll continue monitor the blood pressure and adjust her medications if the pressure continues to be not well-controlled. Also will follow-up with the serial cardiac enzymes. The chest discomfort is likely secondary to uncontrolled hypertension and the patient has been pain-free right now. I would also obtain an echocardiogram was Doppler. We'll continue following up with her.
[2016-09-15 13:49] LABS: Creatine Kinase 204 U/L (30-135)
[2016-09-15 14:02] LABS: Troponin I <0.012 ng/mL (0.000-0.034)
--- NOTE | 2016-09-15 14:40 | P.HPIM ---
History of Present Illness H&P Date: 09/15/16 Chief Complaint: accelerated hypertension with chest pain. is a 66-year-old -[place] female with a previous medical history significant for diabetes mellitus2 with diabetic polyneuropathy, hypertension and hypertensive perivascular disease with left ventricular hypertrophy, coronary artery disease status post PCI back in February 2010 off the PDA off the RCA., was having significant issues with uncontrolled diabetes mellitus for the past 2 years has been under the care of endocrinology who discharged her from the practice and has been following up with me on a regular basis apparently the patient has been having issues with blood pressure control over the last few days and she tried to make it to the office however she could not have an appointment, so she ended up coming to the ER today at [facility] where she was found to have a hypertensive urgency with a blood pressure of 220/119, patient was given labetalol 20 mg IV push and the patient was admitted for evaluation after she developed to have a left-sided chest pain, EKG did not show any acute of normalities, however the patient was admitted to the hospital for blood pressure control and for evaluation, cardiology consultation was obtained from Dr. Wallace, patient was seen and evaluated in the bedside and echogram was obtained. Review of Systems Constitutional: Denies anorexia, Denies chronic headaches, Denies lethargy, Denies malaise, Denies weight gain, Denies weight loss Eyes: bilateral blurred vision, denies bulging eye, denies decreased vision, denies diplopia Ears: bilateral: decreased hearing Ears, nose, mouth and throat: Denies dysphagia, Denies neck lump, Denies swelling in throat, Denies sore throat Cardiovascular: Reports chest pain, Reports decreased exercise tolerance, Reports dyspnea on exertion, Reports high blood pressure, Denies rapid heart beat, Denies shortness of breath, Denies syncope Respiratory: Reports dyspnea, Reports sleep apnea, Denies congestion, Denies cough, Denies cough with sputum, Denies home oxygen, Denies snoring, Denies wheezing Gastrointestinal: Denies abdominal pain, Denies belching, Denies coffee ground emesis, Denies heartburn, Denies melena, Denies nausea, Denies vomiting Genitourinary: Denies dysuria, Denies hematuria Menstruation: Reports postmenopausal Musculoskeletal: Denies myalgias Musculoskeletal: absent: ankle pain, ankle stiffness, ankle swelling, elbow pain , elbow stiffness, elbow swelling, foot pain, foot stiffness, foot swelling, hand pain, hand stiffness, hand swelling, hip pain, hip stiffness, hip swelling , knee pain, knee stiffness, knee swelling, shoulder pain, shoulder stiffness, shoulder swelling, wrist pain, wrist stiffness, wrist swelling Integumentary: Denies pruritus, Denies rash Neurological: Denies numbness, Denies weakness Psychiatric: Denies anxiety, Denies depression Endocrine: Denies fatigue, Denies weight change Past Medical History Past Medical History: Coronary Artery Disease (CAD), Diabetes Mellitus, Deep Vein Thrombosis (DVT), GERD/Reflux, Hyperlipidemia, Hypertension, Osteoarthritis (OA) Additional Past Medical History / Comment(s): vertigo, sinus problems, CONSTIPATION, COLLAPSED LUNG(HAD A C/T) History of Any Multi-Drug Resistant Organisms: None Reported Past Surgical History: Appendectomy, Cholecystectomy, Heart Catheterization With Stent, Hysterectomy, Tubal Ligation Additional Past Surgical History / Comment(s): hemorrhoidectomy, COLLAPSED LUNG HAD A C/T, TOSIN CATARACTS Past Anesthesia/Blood Transfusion Reactions: No Reported Reaction Date of Last Stent Placement:: Past Psychological History: No Psychological Hx Reported Smoking Status: Former smoker Past Alcohol Use History: None Reported Past Drug Use History: None Reported - Past Family History Mother Family Medical History: Hypertension, Seizure Disorder Father Family Medical History: Renal Disease Additional Family Medical History / Comment(s): kidney failure Son(s) Family Medical History: No Reported History Sister(s) Family Medical History: Cancer, Diabetes Mellitus, Hypertension Medications and Allergies Home Medications Medication Instructions Recorded Confirmed Type Rosuvastatin [Crestor] 20 mg PO 06/07/15 09/15/16 History Insulin Glargine [Lantus] 15 - 18 unit SQ 11/09/15 09/15/16 History Aspirin 81 mg PO DAILY 01/20/16 09/15/16 History Insulin Aspart [NovoLOG Flexpen] 8 units SQ AC-BRKFST 01/30/16 09/15/16 History Insulin Aspart [NovoLOG Flexpen] 10 units SQ AC-LUNCH 01/30/16 09/15/16 History Insulin Aspart [NovoLOG Flexpen] 15 units SQ AC-SUPPER 01/30/16 09/15/16 History amLODIPine [Norvasc] 5 mg PO DAILY 05/27/16 09/15/16 History Allergies Allergy/AdvReac Type Severity Reaction Status Date / Time morphine Allergy PASSES OUT Verified 09/15/16 10:20 nitroglycerin Allergy PASSES OUT Verified 09/15/16 10:20 Sulfa (Sulfonamide AdvReac Itching Verified 09/15/16 10:20 Antibiotics) Physical Exam Vitals: Vital Signs Temp Pulse Resp BP Pulse Ox 09/15/16 12:12 74 18 149/86 100 09/15/16 12:00 74 18 149/86 100 09/15/16 10:56 76 18 198/106 100 09/15/16 10:00 71 18 218/93 99 09/15/16 09:00 66 17 178/88 100 09/15/16 08:00 68 18 183/87 100 09/15/16 07:20 69 H 187/84 09/15/16 07:15 226/91 95 09/15/16 06:48 98.2 F 80 20 206/108 100 Intake and Output 09/14/16 09/15/16 09/15/16 22:59 06:59 14:59 Other: Weight 70.307 kg - Constitutional General appearance: average body habitus, no acute distress - EENT Eyes: anicteric sclerae, EOMI, PERRLA, no ptosis, no scleral icterus, normal appearance ENT: NA/AT, normal oropharynx, no thrush Ears: bilateral: normal - Neck Neck: no lymphadenopathy, normal ROM, no rigidity Carotids: bilateral: upstroke normal Thyroid: bilateral: normal size - Respiratory Respiratory: bilateral: diminished, negative: dullness, rales, rhonchi, wheezing , prolonged expiration, prolonged inspiration - Cardiovascular Rhythm: regular Heart sounds: normal: S1, S2 Abnormal Heart Sounds: systolic murmur, no rub, no S3 Gallop, no S4 Gallop, no click - Gastrointestinal General gastrointestinal: normal bowel sounds, soft, no tenderness, no umbilical hernia, no ventral hernia - Integumentary Integumentary: normal, normal turgor - Neurologic Neurologic: CNII-XII intact - Musculoskeletal Musculoskeletal: gait normal - Psychiatric Psychiatric: A&O x's 3, appropriate affect, intact judgment & insight Results CBC & Chem 7: 09/15/16 06:50 09/15/16 06:50 Labs: Abnormal Lab Results - Last 24 Hours (Table) 09/15/16 09/15/16 09/15/16 Range/Units 06:50 06:50 06:50 WBC 3.2 L (3.8-10.6) k/uL D-Dimer (<0.60) mg/L FEU Carbon Dioxide 31 H (22-30) mmol/L Glucose 244 H (74-99) mg/dL Total Creatine Kinase 234 H (30-135) U/L CK-MB (CK-2) 3.6 H* (0.0-2.4) ng/mL 09/15/16 Range/Units 06:50 WBC (3.8-10.6) k/uL D-Dimer 0.72 H (<0.60) mg/L FEU Carbon Dioxide (22-30) mmol/L Glucose (74-99) mg/dL Total Creatine Kinase (30-135) U/L CK-MB (CK-2) (0.0-2.4) ng/mL Thrombosis Risk Factor Assmnt - DVT/VTE Prophylaxis DVT/VTE Prophylaxis: Pharmacologic Prophylaxis ordered, Mechanical Prophylaxis ordered Assessment and Plan Plan: Assessment and plan: 1. Accelerated hypertension. Patient was admitted to hospital for evaluation, restart the patient amlodipine 5 mg orally once every day, as well as metoprolol 25 mg orally twice every day, monitor the patient blood pressure regularly, hydralazine 10 mg IV push every 4 hours as needed, cardiology consultation, echocardiogram. 2. Hypertension and hypertensive cardiovascular disease. Continue amlodipine 5 mg orally once every day, and metoprolol 25 mg orally twice every day. 4. Hyperlipidemia. Continue Lipitor 40 mg orally once every day. 5. Diabetes mellitus type 2. Continue Lantus 15 units at bedtime along with the Humalog per scale. 6. Diabetic polyneuropathy. Stable. 7. Sleep apnea. Continue with CPAP. 8. PAD. Continue patient on aspirin and statin for secondary prevention. 9. DVT prophylaxis. Lovenox 40 mg subcutaneously every 24 hours. 10. Admitted to inpatient. Estimate a length of stay 2 midnights.
[2016-09-15 14:58] VITALS: BMI 23.6
[2016-09-15 16:58] LABS: Glucose,Whole Blood 129 mg/dL (75-99)
[2016-09-15] MEDS ORDERED: INSULIN LISPRO (humaLOG) 300 UNIT/3 ML VIAL SQ SCH (17:30)
[2016-09-15 19:08] LABS: Creatine Kinase 187 U/L (30-135)
[2016-09-15 19:20] LABS: Creatine Kinase MB 2.3 ng/mL (0.0-2.4); Troponin I <0.012 ng/mL (0.000-0.034)
[2016-09-15] MEDS ORDERED: INSULIN GLARGINE 100 UNIT/ML 10 ML VIAL SQ SCH (21:00)
[2016-09-15] MEDS ORDERED: ATORVASTATIN 40 MG TAB PO SCH (21:00)
[2016-09-15 21:17] LABS: Glucose,Whole Blood 198 mg/dL (75-99)
[2016-09-16 06:28] LABS: Glucose,Whole Blood 218 mg/dL (75-99)
[2016-09-16 07:05] LABS: ALT 36 U/L (9-52); AST 23 U/L (14-36); Alkaline Phosphatase 94 U/L (38-126); Anion Gap 7 mmol/L; Blood Urea Nitrogen 12 mg/dL (7-17); Calcium 9.2 mg/dL (8.4-10.2); Carbon Dioxide 32 mmol/L (22-30); Chloride 100 mmol/L (98-107); Cholesterol 212 mg/dL (<200); Glucose 219 mg/dL (74-99); HDL Cholesterol 70 mg/dL (40-60); Non-African American GFR(MDRD) >60 (>60 ml/min/1.73 sqM); Sodium 139 mmol/L (137-145); Total Bilirubin 0.5 mg/dL (0.2-1.3); Total Protein 6.6 g/dL (6.3-8.2); Triglycerides 51 mg/dL (<150)
[2016-09-16 07:09] LABS: Basophils % (A) 1 %; CH 27.5; CHCM 31.1; Eosinophils # (A) 0.1 k/uL (0-0.7); Eosinophils % (A) 4 %; HCT 39.5 % (34.0-46.0); HDW 2.26; HGB 12.4 gm/dL (11.4-16.0); Hypochromasia Slight; Luc # (Auto) 0.12; Luc % (Auto) 4; Lymphocytes # (A) 1.5 k/uL (1.0-4.8); Lymphocytes % (A) 46 %; MCHC 31.5 g/dL (31.0-37.0); Mean Platelet Volume 8.6; Monocytes # (A) 0.2 k/uL (0-1.0); Monocytes % (A) 6 %; Neutrophils # (A) 1.3 k/uL (1.3-7.7); Neutrophils % (A) 40 %; RBC 4.44 m/uL (3.80-5.40); RDW 13.8 % (11.5-15.5); WBC 3.2 k/uL (3.8-10.6); WBC (Perox) 3.24
[2016-09-16] MEDS ORDERED: INSULIN LISPRO (humaLOG) 300 UNIT/3 ML VIAL SQ SCH ×2 (07:30→12:30)
[2016-09-16 08:19] VITALS: PULSE 69; TEMP 98
[2016-09-16] MEDS: METOPROLOL TARTRATE 25 MG TAB PO SCH (08:19)
[2016-09-16] MEDS ORDERED: ASPIRIN 325 MG TAB PO SCH (09:00)
[2016-09-16] MEDS ORDERED: ASPIRIN 81 MG CHEW PO SCH (09:00)
[2016-09-16] MEDS ORDERED: amLODIPine 5 MG TAB PO SCH (09:00)
[2016-09-16] MEDS ORDERED: ENOXAPARIN 40 MG/0.4 ML SYRINGE SQ SCH (09:00)
[2016-09-16 10:07] LABS: Hemoglobin A1C 12.9 % (4.2-6.1)
[2016-09-16 11:37] VITALS: BP 146/86
[2016-09-16 12:24] LABS: Glucose,Whole Blood 70 mg/dL (75-99)
[2016-09-16] MEDS: INSULIN LISPRO (humaLOG) 300 UNIT/3 ML VIAL SQ SCH (12:31)
--- NOTE | 2016-09-16 13:07 | P.PN ---
Subjective Principal diagnosis: This is a pleasant 66-year-old -[place]ian female patient who follows with Dr. Hernandez as an outpatient with a known history of CAD and prior stenting of the PDA of RCA 2011, diabetes, hypertension, and possible sleep apnea, came in to the hospital because of uncontrolled hypertension. The patient states that over the last several days her blood pressure has been out of control. The systolic blood pressure was more than 200 mmHg. Beside that, she has been experiencing intermittent episodes of sharp chest discomfort of brief duration. The patient stated that she was taking her blood pressure medications at home but she was not compliant with her BiPAP machine. At home the patient was on amlodipine at 5 mg daily which was assumed and metoprolol was added to the current medical treatment. The blood pressure has been better controlled. Objective - Vital Signs Vital signs: Vital Signs Temp 98.0 F 09/16/16 08:00 Pulse 69 09/16/16 11:34 Resp 16 09/16/16 11:34 BP 146/86 09/16/16 11:34 Pulse Ox 100 09/16/16 11:34 Intake & Output 09/15/16 09/16/16 09/16/16 18:59 06:59 18:59 Intake Total 774 20 250 Output Total 401 Balance 373 20 250 Weight 70.307 kg 71.8 kg Intake: IV 20 0.9% NS FLUSH 20 Oral 774 250 Output: Urine 401 Other: # Voids 1 - Constitutional General appearance: Present: no acute distress - Respiratory Respiratory: bilateral: CTA - Cardiovascular Rhythm: regular Heart sounds: normal: S1, S2 - Labs CBC & Chem 7: 09/16/16 06:41 09/16/16 06:41 Labs: Abnormal Lab Results - Last 24 Hours (Table) 09/15/16 09/15/16 09/15/16 Range/Units 12:56 16:36 18:28 WBC (3.8-10.6) k/uL Carbon Dioxide (22-30) mmol/L Glucose (74-99) mg/dL POC Glucose (mg/dL) 129 H (75-99) mg/dL Hemoglobin A1c (4.2-6.1) % Total Creatine Kinase 204 H 187 H (30-135) U/L CK-MB (CK-2) 3.0 H* (0.0-2.4) ng/mL Cholesterol (<200) mg/dL LDL Cholesterol, Calc (0-99) mg/dL HDL Cholesterol (40-60) mg/dL 09/15/16 09/16/16 09/16/16 Range/Units 21:12 06:23 06:41 WBC (3.8-10.6) k/uL Carbon Dioxide 32 H (22-30) mmol/L Glucose 219 H (74-99) mg/dL POC Glucose (mg/dL) 198 H 218 H (75-99) mg/dL Hemoglobin A1c (4.2-6.1) % Total Creatine Kinase (30-135) U/L CK-MB (CK-2) (0.0-2.4) ng/mL Cholesterol 212 H (<200) mg/dL LDL Cholesterol, Calc 132 H (0-99) mg/dL HDL Cholesterol 70 H (40-60) mg/dL 09/16/16 09/16/16 09/16/16 Range/Units 06:41 06:41 12:04 WBC 3.2 L (3.8-10.6) k/uL Carbon Dioxide (22-30) mmol/L Glucose (74-99) mg/dL POC Glucose (mg/dL) 70 L (75-99) mg/dL Hemoglobin A1c 12.9 H (4.2-6.1) % Total Creatine Kinase (30-135) U/L CK-MB (CK-2) (0.0-2.4) ng/mL Cholesterol (<200) mg/dL LDL Cholesterol, Calc (0-99) mg/dL HDL Cholesterol (40-60) mg/dL Assessment and Plan Plan: T from the cardiovascular standpoint of view, the patient can be discharged home.
--- NOTE | 2016-09-16 13:52 | ECHOF ---
Referral Reason:HTN MEASUREMENTS -------- HEIGHT: 172.7 cm WEIGHT: 70.3 kg BP: 149/86 RVIDd: 2.8 cm (< 3.3) IVSd: 1.7 cm (0.6 - 1.1) LVIDd: 4.4 cm (3.9 - 5.3) LVPWd: 1.5 cm (0.6 - 1.1) IVSs: 2.3 cm LVIDs: 2.2 cm LVPWs: 2.2 cm LAESV Index (A-L): 33.63 ml/m Ao Diam: 3.5 cm (2.0 - 3.7) AV Cusp: 1.9 cm (1.5 - 2.6) LA Diam: 3.6 cm (2.7 - 3.8) MV EXCURSION: 18.221 mm (> 18.000) MV EF SLOPE: 111 mm/s (70 - 150) EPSS: 0.4 cm MV E Juancarlos: 0.88 m/s MV DecT: 268 ms MV A Juancarlos: 0.98 m/s MV E/A Ratio: 0.90 RAP: 5.00 mmHg RVSP: 12.89 mmHg FINDINGS -------- Sinus rhythm. This was a technically adequate study. There is severe concentric left ventricular hypertrophy. Overall left ventricular systolic function is normal with, an EF between 55 - 60 %. The right ventricle is normal in size and function. LA is midly dilated 29-33ml/m2. The right atrium is normal in size. Aortic valve is trileaflet and is mildly thickened. There is no evidence of aortic regurgitation. There is no evidence of aortic stenosis. The mitral valve leaflets are mildly thickened. There is trace to mild mitral regurgitation. Trace tricuspid regurgitation present. There is no evidence of pulmonary hypertension. The right ventricular systolic pressure, as measured by Doppler, is 12.89mmHg. The pulmonic valve is normal. The aortic root size is normal. Normal inferior vena cava with normal inspiratory collapse consistent with estimated right atrial pressure of 5 mmHg. The pericardium is normal. There is no pericardial effusion. CONCLUSIONS -------- 1. Sinus rhythm. 2. The right ventricular systolic pressure, as measured by Doppler, is 12.89mmHg. 3. The aortic root size is normal. 4. There is no pericardial effusion. 5. This was a technically adequate study. 6. There is severe concentric left ventricular hypertrophy. 7. Overall left ventricular systolic function is normal with, an EF between 55 - 60 %. 8. LA is midly dilated 29-33ml/m2. 9. The mitral valve leaflets are mildly thickened. 10. There is trace to mild mitral regurgitation. 11. Trace tricuspid regurgitation present. 12. There is no evidence of pulmonary hypertension. AUTOMATED PROCESS OPERATOR: Sukhwinder Wright RDCS
--- NOTE | 2016-09-16 14:01 | P.DS ---
Providers Date of admission: 09/15/16 11:47 Attending physician: Mary Heath Consults: 09/15/16 11:47 Consult Physician Urgent Consulting Provider: Jorgito Wallace Consult Reason/Comments: htn, cp Do you want consulting provider notified?: Yes Primary care physician: Mary Heath Hospital Course: is a 66-year-old -Omani female with a previous medical history significant for diabetes mellitus2 with diabetic polyneuropathy, hypertension and hypertensive perivascular disease with left ventricular hypertrophy, coronary artery disease status post PCI back in February 2010 off the PDA off the RCA., was having significant issues with uncontrolled diabetes mellitus for the past 2 years has been under the care of endocrinology who discharged her from the practice and has been following up with me on a regular basis apparently the patient has been having issues with blood pressure control over the last few days and she tried to make it to the office however she could not have an appointment, so she ended up coming to the ER today at [facility] where she was found to have a hypertensive urgency with a blood pressure of 220/119, patient was given labetalol 20 mg IV push and the patient was admitted for evaluation after she developed to have a left-sided chest pain, EKG did not show any acute of normalities, however the patient was admitted to the hospital for blood pressure control and for evaluation, cardiology consultation was obtained from Dr. Wallace, patient was seen and evaluated in the bedside and echogram was obtained. Patient is doing better today she denies any chest pain or any shortness of breath, she is ambulating very well, her blood pressure is well controlled, her is at the bedside, she wanted to go home, she was seen and evaluated by cardiology was recommended for the patient to go home with follow-up with him as an outpatient. Discharge diagnoses: 1. Accelerated hypertension. 2. Uncontrolled hypertension. 3. CAD post-PCI of the PDA off the RCA in 2010. 4. Hypertension and hypertensive cardiovascular disease. 5. Diabetes mellitus type 2 with diabetic polyneuropathy. 6. Hyperlipidemia. 7. PAD. 8. Obstructive sleep apnea. 9. Osteoarthritis. 10. Spondylosis of the lumbar spine. Plan - Discharge Summary New Discharge Prescriptions: New Metoprolol Tartrate [Lopressor] 25 mg PO BID #180 tab amLODIPine [Norvasc] 5 mg PO DAILY #90 tab Continue Rosuvastatin [Crestor] 20 mg PO HS Insulin Glargine [Lantus] 15 - 18 unit SQ HS Aspirin 81 mg PO DAILY Insulin Aspart [NovoLOG Flexpen] 15 units SQ AC-SUPPER Insulin Aspart [NovoLOG Flexpen] 10 units SQ AC-LUNCH Insulin Aspart [NovoLOG Flexpen] 8 units SQ AC-BRKFST amLODIPine [Norvasc] 5 mg PO DAILY #90 Discharge Medication List Rosuvastatin [Crestor] 20 mg PO HS 06/07/15 [History] Insulin Glargine [Lantus] 15 - 18 unit SQ HS 11/09/15 [History] Aspirin 81 mg PO DAILY 01/20/16 [History] Insulin Aspart [NovoLOG Flexpen] 8 units SQ AC-BRKFST 01/30/16 [History] Insulin Aspart [NovoLOG Flexpen] 10 units SQ AC-LUNCH 01/30/16 [History] Insulin Aspart [NovoLOG Flexpen] 15 units SQ AC-SUPPER 01/30/16 [History] Metoprolol Tartrate [Lopressor] 25 mg PO BID #180 tab 09/16/16 [Rx] amLODIPine [Norvasc] 5 mg PO DAILY #90 09/16/16 [Rx] amLODIPine [Norvasc] 5 mg PO DAILY #90 tab 09/16/16 [Rx] Follow up Appointment(s)/Referral(s): Mary Heath MD [Primary Care Provider] - 1 Week (please call to make appointment ) Patient Instructions/Handouts: Hypertension (DC) Discharge Disposition: HOME SELF-CARE
== END 2016-09-16 13:43 | disposition home or self-care (01) | DRG 305 ==
LOC: EC 06:37 → 6SEL 11:47
PROVIDERS: ADMIT Internal Medicine; ATTEND Internal Medicine
DX: I16.1 Hypertensive emergency (principal); E11.42 Type 2 diabetes mellitus with diabetic polyneuropathy; I11.9 Hypertensive heart disease without heart failure; I16.0 Hypertensive urgency; R07.9 Chest pain, unspecified; E78.5 Hyperlipidemia, unspecified; G47.33 Obstructive sleep apnea (adult) (pediatric); I25.10 Atherosclerotic heart disease of native coronary artery without angina pectoris; R06.02 Shortness of breath; R06.09 Other forms of dyspnea; K21.9 Gastro-esophageal reflux disease without esophagitis; E11.51 Type 2 diabetes mellitus with diabetic peripheral angiopathy without gangrene; M47.816 Spondylosis without myelopathy or radiculopathy, lumbar region; M19.90 Unspecified osteoarthritis, unspecified site; Z88.5 Allergy status to narcotic agent; Z88.2 Allergy status to sulfonamides; Z88.8 Allergy status to other drugs, medicaments and biological substances; Z86.718 Personal history of other venous thrombosis and embolism; Z91.19 Patient's noncompliance with other medical treatment and regimen; Z78.0 Asymptomatic menopausal state; Z90.49 Acquired absence of other specified parts of digestive tract; Z90.710 Acquired absence of both cervix and uterus; Z82.49 Family history of ischemic heart disease and other diseases of the circulatory system; Z82.0 Family history of epilepsy and other diseases of the nervous system; Z83.3 Family history of diabetes mellitus; Z79.899 Other long term (current) drug therapy; Z79.82 Long term (current) use of aspirin; Z79.4 Long term (current) use of insulin; Z87.891 Personal history of nicotine dependence; Z98.51 Tubal ligation status; Z98.42 Cataract extraction status, left eye; Z98.41 Cataract extraction status, right eye; Z84.1 Family history of disorders of kidney and ureter; Z80.9 Family history of malignant neoplasm, unspecified; Z95.5 Presence of coronary angioplasty implant and graft; Z87.19 Personal history of other diseases of the digestive system; Z87.09 Personal history of other diseases of the respiratory system
CPT/HCPCS: 36415; 71020; 71275; 80053; 80061; 82550; 82553; 83036; 83735; 84484; 85025; 85379; 85610; 85730; 93005; 93306

== ENCOUNTER 2016-10-16 02:54 | Emergency (ER) | payer MEDICARE, OTHER ==
[2016-10-16 04:05] LABS: Basophils # (A) 0.1 k/uL (0-0.2); Basophils % (A) 1 %; CH 28.6; CHCM 33.7; Eosinophils # (A) 0.1 k/uL (0-0.7); Eosinophils % (A) 3 %; HCT 37.7 % (34.0-46.0); HDW 2.39; HGB 12.2 gm/dL (11.4-16.0); Luc # (Auto) 0.11; Luc % (Auto) 3; Lymphocytes # (A) 1.4 k/uL (1.0-4.8); Lymphocytes % (A) 31 %; MCH 27.5 pg (25.0-35.0); MCHC 32.3 g/dL (31.0-37.0); MCV 85.2 fL (80.0-100.0); Mean Platelet Volume 9.1; Monocytes # (A) 0.3 k/uL (0-1.0); Monocytes % (A) 6 %; Neutrophils # (A) 2.5 k/uL (1.3-7.7); Neutrophils % (A) 56 %; RBC 4.43 m/uL (3.80-5.40); RDW 14.4 % (11.5-15.5); WBC 4.4 k/uL (3.8-10.6); WBC (Perox) 4.51
[2016-10-16 04:12] LABS: ALT 36 U/L (9-52); AST 25 U/L (14-36); Alkaline Phosphatase 133 U/L (38-126); Anion Gap 7 mmol/L; Blood Urea Nitrogen 26 mg/dL (7-17); Carbon Dioxide 31 mmol/L (22-30); Chloride 100 mmol/L (98-107); Creatine Kinase 325 U/L (30-135); Glucose 164 mg/dL (74-99); Non-African American GFR(MDRD) >60 (>60 ml/min/1.73 sqM); Potassium 4.4 mmol/L (3.5-5.1); Sodium 138 mmol/L (137-145); Total Bilirubin 0.4 mg/dL (0.2-1.3); Total Protein 6.8 g/dL (6.3-8.2)
[2016-10-16 04:26] LABS: Appearance,Urine Clear (Clear); Bacteria,Urine Rare /hpf; Bilirubin,Urine Negative (Negative); Glucose,Urine (UA) 4+ (Negative); Ketones,Urine Negative (Negative); Leukocyte Esterase,Urine Small (Negative); Mucus,Urine Rare /hpf; Nitrite,Urine Positive (Negative); PH, Urine 5.5 (5.0-8.0); Particle Count 28172; Protein,Urine Trace (Negative); RBC,Urine 1 /hpf (0-5); Squamous Epithelial Cell,Urine 3 /hpf (0-4); UA Billing (MACRO vs. MICRO) MICRO; Urobilinogen,Urine <2.0 mg/dL (<2.0); WBC,Urine 8 /hpf (0-5)
[2016-10-16] MEDS ORDERED: RX INFO: IV CONTRAST WAS GIVEN 1 EACH MISC MISCELLANE PRN ×2 (04:28→04:36)
[2016-10-16] MEDS ORDERED: HYDROcodone/APAP 5-325MG 1 EACH TAB PO STA (04:30)
[2016-10-16] MEDS ORDERED: HEPARIN SODIUM,PORCINE 5,000 UNIT/ML 1 ML VIAL IV ONE (04:34)
[2016-10-16] MEDS ORDERED: HEPARIN SODIUM,PORCINE 5,000 UNIT/ML 1 ML VIAL IV PRN (04:34)
--- NOTE | 2016-10-16 04:34 | US ---
EXAM: US Duplex Bilateral Lower Extremity Veins CLINICAL HISTORY: Pain. History of superficial thrombus in the greater saphenous vein. TECHNIQUE: Real-time ultrasound scan of the veins of the bilateral lower extremities with color Doppler flow, spectral waveform analysis and compression. COMPARISON: US dated 05/30/2016. FINDINGS: Right deep veins: No DVT in the right common femoral, femoral, proximal deep femoral, popliteal veins and proximal calf veins. The veins are compressible with normal color flow and augmentation. Right superficial veins: No thrombus in the visualized portions of the right greater and small saphenous veins. Left deep veins: No DVT in the left common femoral, femoral, proximal deep femoral, popliteal veins and proximal calf veins. The veins are compressible with normal color flow and augmentation. Left superficial veins: No thrombus in the visualized portions of the left greater and small saphenous veins. Soft tissues: No acute findings. No popliteal cyst. IMPRESSION: No evidence of DVT in the bilateral lower extremities.
[2016-10-16] MEDS ORDERED: HEPARIN SODIUM,PORCINE/D5W PMX 25,000 UNIT in DEXTROSE/WATER 1 500ML.BAG IV SCH (04:45)
--- NOTE | 2016-10-16 05:11 | ED ---
General Adult HPI - General Source: patient, family, RN notes reviewed, old records reviewed Mode of arrival: ambulatory Limitations: no limitations <Kasi Carney - Last Filed: 10/16/16 06:39> <Pedro Farnsworth - Last Filed: 10/16/16 08:25> - General Chief complaint: Recheck/Abnormal Lab/Rx Stated complaint: muscle spasms,nausea Time Seen by Provider: 10/16/16 03:07 - History of Present Illness Initial comments: 66-year-old female with past medical history of hypertension, diabetes, remote history of CVA, CAD status post stenting presents with bilateral lower extremity pain. Patient has had some degree of pain for the past 2 years. She has pain worse with ambulation, relieved by rest. Patient does report symptoms in her upper thighs and buttock. Pain is typically in her lower extremities below the knee. She denies any history of back pain. No history of trauma She does have a history of DVT and was treated with oral anticoagulants. She is no longer taking blood thinners at this time. Patient was cleaning her house today , had worsening in her symptoms. She is unable to take more than 10 or 15 steps without having pain. She does report having some degree of dull aching pain at rest. She denies chest pain or shortness of breath. Denies abdominal pain. (Kasi Carney) - Related Data Home Medications Medication Instructions Recorded Confirmed Rosuvastatin [Crestor] 20 mg PO HS 06/07/15 10/16/16 Insulin Glargine [Lantus] 15 - 18 unit SQ HS 11/09/15 10/16/16 Aspirin 81 mg PO DAILY 01/20/16 10/16/16 Insulin Aspart [NovoLOG Flexpen] 8 units SQ AC-BRKFST 01/30/16 10/16/16 Insulin Aspart [NovoLOG Flexpen] 10 units SQ AC-LUNCH 01/30/16 10/16/16 Insulin Aspart [NovoLOG Flexpen] 15 units SQ AC-SUPPER 01/30/16 10/16/16 Previous Rx's Medication Instructions Recorded Metoprolol Tartrate [Lopressor] 25 mg PO BID #180 tab 09/16/16 amLODIPine [Norvasc] 5 mg PO DAILY #90 09/16/16 amLODIPine [Norvasc] 5 mg PO DAILY #90 tab 09/16/16 HYDROcodone/APAP 5-325MG [[place] 1 tab PO Q6HR PRN #12 tab 10/16/16 5-325] Allergies Allergy/AdvReac Type Severity Reaction Status Date / Time morphine Allergy PASSES OUT Verified 10/16/16 03:03 nitroglycerin Allergy PASSES OUT Verified 10/16/16 03:03 Sulfa (Sulfonamide AdvReac Itching Verified 10/16/16 03:03 Antibiotics) Review of Systems ROS Other: All systems not noted in ROS Statement are negative. <Kasi Carney - Last Filed: 10/16/16 06:39> ROS Other: All systems not noted in ROS Statement are negative. <Pedro Farnsworth - Last Filed: 10/16/16 08:25> ROS Statement: Those systems with pertinent positive or pertinent negative responses have been documented in the HPI. Past Medical History Past Medical History: Coronary Artery Disease (CAD), Diabetes Mellitus, Deep Vein Thrombosis (DVT), GERD/Reflux, Hyperlipidemia, Hypertension, Osteoarthritis (OA) Additional Past Medical History / Comment(s): vertigo, sinus problems, CONSTIPATION, COLLAPSED LUNG(HAD A C/T) History of Any Multi-Drug Resistant Organisms: None Reported Past Surgical History: Appendectomy, Cholecystectomy, Heart Catheterization With Stent, Hysterectomy, Tubal Ligation Additional Past Surgical History / Comment(s): hemorrhoidectomy, COLLAPSED LUNG HAD A C/T, TOSIN CATARACTS Past Anesthesia/Blood Transfusion Reactions: No Reported Reaction Date of Last Stent Placement:: Past Psychological History: No Psychological Hx Reported Smoking Status: Former smoker Past Alcohol Use History: None Reported Past Drug Use History: None Reported - Past Family History Mother Family Medical History: Hypertension, Seizure Disorder Father Family Medical History: Renal Disease Additional Family Medical History / Comment(s): kidney failure Son(s) Family Medical History: No Reported History Sister(s) Family Medical History: Cancer, Diabetes Mellitus, Hypertension <Kasi Carney - Last Filed: 10/16/16 06:39> General Exam Limitations: no limitations General appearance: alert, in no apparent distress Head exam: Present: atraumatic, normocephalic Eye exam: Present: normal appearance, PERRL ENT exam: Present: normal exam Neck exam: Present: normal inspection. Absent: tenderness, meningismus Respiratory exam: Present: normal lung sounds bilaterally. Absent: respiratory distress Cardiovascular Exam: Present: regular rate, normal rhythm GI/Abdominal exam: Present: soft. Absent: distended, tenderness Rectal exam: Present: normal inspection, normal rectal tone, heme (-) stool Extremities exam: Present: normal inspection, other (Patient has bilateral palpable femoral pulses, bilateral palpable popliteal pulses, DP and PT signals on the right, PT Bruce left, absent DP pulse on the left). Absent: normal capillary refill, pedal edema, calf tenderness Back exam: Present: normal inspection, full ROM. Absent: tenderness, muscle spasm Neurological exam: Present: alert, oriented X3, CN II-XII intact, reflexes normal. Absent: motor sensory deficit Psychiatric exam: Present: normal affect, normal mood Skin exam: Present: warm, dry <Kasi Carney - Last Filed: 10/16/16 06:39> Course <Kasi Carney - Last Filed: 10/16/16 06:39> <Pedro Farnsworth - Last Filed: 10/16/16 08:25> Vital Signs 10/16/16 10/16/16 10/16/16 02:56 05:00 06:09 Temperature 97 F L 97.4 F L 98.1 F Pulse Rate 69 71 72 Respiratory 18 18 16 Rate Blood Pressure 137/93 184/84 153/83 O2 Sat by Pulse 100 98 98 Oximetry 10/16/16 10/16/16 07:09 07:41 Temperature Pulse Rate 68 81 Respiratory 18 18 Rate Blood Pressure 162/88 174/81 O2 Sat by Pulse 96 96 Oximetry - Reevaluation(s) Reevaluation #1: 10/16/16 04:32 Case was discussed with vascular surgery. Given the absence of the DP pulse of the left lower extremity, CT angiography is recommended for this patient. She is started on heparin drip prior to the study being performed. (Kasi Carney) EKG Findings - EKG Comments: EKG Findings:: EKG shows normal sinus rhythm, ventricular rate 69, AL interval 160, QRS duration 96, QTC 417, EKG is compared to EKG from 09/15/2016, no significant changes. <Kasi Carney - Last Filed: 10/16/16 06:39> Medical Decision Making - Lab Data Result diagrams: 10/16/16 03:52 10/16/16 03:52 <Kasi Carney - Last Filed: 10/16/16 06:39> - Lab Data Result diagrams: 10/16/16 03:52 10/16/16 03:52 <Pedro Farnsworth - Last Filed: 10/16/16 08:25> - Medical Decision Making 66-year-old female presenting with chief complaint of lower extremity pain. Patient does also report bilateral numbness. Her symptoms are worse with walking. Pain worsened this evening prompting ER evaluation. She denies any back pain. Denies any bowel or bladder symptoms. States the pain is dull similar to a toothache. On examination the patient has decreased pedal pulses bilaterally. Doppler signals are present on the right DP and PT, and PTT signal is present on the left, there is absent DP pulse on the left. Patient did report that her symptoms were similar to when she was found to have a blood clot in her left leg approximately 9 months ago. Ultrasound was performed to evaluate for DVT, was negative. Laboratory studies including CBC, CMP, lactic acid are unremarkable. Urinalysis to show some signs of infection, but patient does not have dysuria. Urine culture is obtained. Shortly after initial presentation, case was discussed with vascular surgery Dr. Rodrigez, he did recommend patient be placed on heparin and CT angiography of the lower extremities be obtained. CT angiography was performed 0458. Patient's care is signed out to the oncoming physician at 7 AM, awaiting CT angiography results. (Kasi Carney) Satiate female DEL with positive CTA for left-sided material peroneal occlusion. Patient be transferred [facility] for vascular surgery (Pedro Farnsworth) - Lab Data Lab Results 10/16/16 10/16/16 10/16/16 Range/Units 03:52 03:52 03:52 WBC 4.4 (3.8-10.6) k/uL RBC 4.43 (3.80-5.40) m/uL Hgb 12.2 (11.4-16.0) gm/dL Hct 37.7 (34.0-46.0) % MCV 85.2 (80.0-100.0) fL MCH 27.5 (25.0-35.0) pg MCHC 32.3 (31.0-37.0) g/dL RDW 14.4 (11.5-15.5) % Plt Count 256 (150-450) k/uL Neutrophils % 56 % Lymphocytes % 31 % Monocytes % 6 % Eosinophils % 3 % Basophils % 1 % Neutrophils # 2.5 (1.3-7.7) k/uL Lymphocytes # 1.4 (1.0-4.8) k/uL Monocytes # 0.3 (0-1.0) k/uL Eosinophils # 0.1 (0-0.7) k/uL Basophils # 0.1 (0-0.2) k/uL PT (9.0-12.0) sec INR (<1.2) APTT (22.0-30.0) sec Sodium 138 (137-145) mmol/L Potassium 4.4 (3.5-5.1) mmol/L Chloride 100 (98-107) mmol/L Carbon Dioxide 31 H (22-30) mmol/L Anion Gap 7 mmol/L BUN 26 H (7-17) mg/dL Creatinine 0.90 (0.52-1.04) mg/dL Est GFR (MDRD) Af Amer >60 (>60 ml/min/1.73 sqM) Est GFR (MDRD) Non-Af >60 (>60 ml/min/1.73 sqM) Glucose 164 H (74-99) mg/dL POC Glucose (mg/dL) (75-99) mg/dL POC Glu Wig Stylist ID Plasma Lactic Acid Cel[place] 1.3 (0.7-2.0) mmol/L Calcium 10.0 (8.4-10.2) mg/dL Total Bilirubin 0.4 (0.2-1.3) mg/dL AST 25 (14-36) U/L ALT 36 (9-52) U/L Alkaline Phosphatase 133 H (38-126) U/L Creatine Kinase 325 H (30-135) U/L Total Protein 6.8 (6.3-8.2) g/dL Albumin 3.8 (3.5-5.0) g/dL Urine Color Urine Appearance (Clear) Urine pH (5.0-8.0) Ur Specific [place] (1.001-1.035) Urine Protein (Negative) Urine Glucose (UA) (Negative) Urine Ketones (Negative) Urine Blood (Negative) Urine Nitrite (Negative) Urine Bilirubin (Negative) Urine Urobilinogen (<2.0) mg/dL Ur Leukocyte Esterase (Negative) Urine RBC (0-5) /hpf Urine WBC (0-5) /hpf Ur Squamous Epith Cells (0-4) /hpf Urine Bacteria (None) /hpf Urine Mucus (None) /hpf Stool Occult Blood (Negative) 10/16/16 10/16/16 10/16/16 Range/Units 03:52 04:37 05:19 WBC (3.8-10.6) k/uL RBC (3.80-5.40) m/uL Hgb (11.4-16.0) gm/dL Hct (34.0-46.0) % MCV (80.0-100.0) fL MCH (25.0-35.0) pg MCHC (31.0-37.0) g/dL RDW (11.5-15.5) % Plt Count (150-450) k/uL Neutrophils % % Lymphocytes % % Monocytes % % Eosinophils % % Basophils % % Neutrophils # (1.3-7.7) k/uL Lymphocytes # (1.0-4.8) k/uL Monocytes # (0-1.0) k/uL Eosinophils # (0-0.7) k/uL Basophils # (0-0.2) k/uL PT 10.4 (9.0-12.0) sec INR 1.0 (<1.2) APTT 22.2 (22.0-30.0) sec Sodium (137-145) mmol/L Potassium (3.5-5.1) mmol/L Chloride (98-107) mmol/L Carbon Dioxide (22-30) mmol/L Anion Gap mmol/L BUN (7-17) mg/dL Creatinine (0.52-1.04) mg/dL Est GFR (MDRD) Af Amer (>60 ml/min/1.73 sqM) Est GFR (MDRD) Non-Af (>60 ml/min/1.73 sqM) Glucose (74-99) mg/dL POC Glucose (mg/dL) (75-99) mg/dL POC Glu Wig Stylist ID Plasma Lactic Acid [place] (0.7-2.0) mmol/L Calcium (8.4-10.2) mg/dL Total Bilirubin (0.2-1.3) mg/dL AST (14-36) U/L ALT (9-52) U/L Alkaline Phosphatase (38-126) U/L Creatine Kinase (30-135) U/L Total Protein (6.3-8.2) g/dL Albumin (3.5-5.0) g/dL Urine Color Yellow Urine Appearance Clear (Clear) Urine pH 5.5 (5.0-8.0) Ur Specific [place] 1.020 (1.001-1.035) Urine Protein Trace H (Negative) Urine Glucose (UA) 4+ H (Negative) Urine Ketones Negative (Negative) Urine Blood Trace H (Negative) Urine Nitrite Positive H (Negative) Urine Bilirubin Negative (Negative) Urine Urobilinogen <2.0 (<2.0) mg/dL Ur Leukocyte Esterase Small H (Negative) Urine RBC 1 (0-5) /hpf Urine WBC 8 H (0-5) /hpf Ur Squamous Epith Cells 3 (0-4) /hpf Urine Bacteria Rare H (None) /hpf Urine Mucus Rare H (None) /hpf Stool Occult Blood Negative (Negative) 10/16/16 Range/Units 06:23 WBC (3.8-10.6) k/uL RBC (3.80-5.40) m/uL Hgb (11.4-16.0) gm/dL Hct (34.0-46.0) % MCV (80.0-100.0) fL MCH (25.0-35.0) pg MCHC (31.0-37.0) g/dL RDW (11.5-15.5) % Plt Count (150-450) k/uL Neutrophils % % Lymphocytes % % Monocytes % % Eosinophils % % Basophils % % Neutrophils # (1.3-7.7) k/uL Lymphocytes # (1.0-4.8) k/uL Monocytes # (0-1.0) k/uL Eosinophils # (0-0.7) k/uL Basophils # (0-0.2) k/uL PT (9.0-12.0) sec INR (<1.2) APTT (22.0-30.0) sec Sodium (137-145) mmol/L Potassium (3.5-5.1) mmol/L Chloride (98-107) mmol/L Carbon Dioxide (22-30) mmol/L Anion Gap mmol/L BUN (7-17) mg/dL Creatinine (0.52-1.04) mg/dL Est GFR (MDRD) Af Amer (>60 ml/min/1.73 sqM) Est GFR (MDRD) Non-Af (>60 ml/min/1.73 sqM) Glucose (74-99) mg/dL POC Glucose (mg/dL) 172 H (75-99) mg/dL POC Glu Wig Stylist ID Puja Grigsby Plasma Lactic Acid [place] (0.7-2.0) mmol/L Calcium (8.4-10.2) mg/dL Total Bilirubin (0.2-1.3) mg/dL AST (14-36) U/L ALT (9-52) U/L Alkaline Phosphatase (38-126) U/L Creatine Kinase (30-135) U/L Total Protein (6.3-8.2) g/dL Albumin (3.5-5.0) g/dL Urine Color Urine Appearance (Clear) Urine pH (5.0-8.0) Ur Specific [place] (1.001-1.035) Urine Protein (Negative) Urine Glucose (UA) (Negative) Urine Ketones (Negative) Urine Blood (Negative) Urine Nitrite (Negative) Urine Bilirubin (Negative) Urine Urobilinogen (<2.0) mg/dL Ur Leukocyte Esterase (Negative) Urine RBC (0-5) /hpf Urine WBC (0-5) /hpf Ur Squamous Epith Cells (0-4) /hpf Urine Bacteria (None) /hpf Urine Mucus (None) /hpf Stool Occult Blood (Negative) Disposition <Kasi Carney - Last Filed: 10/16/16 06:39> - Out of Hospital Transfer - Req. Specs Out of Hospital Transfer - Requested Specifics: Other Emergency Center ([facility]) <Pedro Farnsworth - Last Filed: 10/16/16 08:25> Clinical Impression: Occlusion of artery of leg Narrative: Left Peroneal Artery Occlusion (Pedro Farnsworth) Disposition: OTHER INSTITUTION NOT DEFINED Condition: Fair Prescriptions: HYDROcodone/APAP 5-325MG [[place] 5-325] 1 tab PO Q6HR PRN #12 tab PRN Reason: Pain Referrals: Mary Heath MD [Primary Care Provider] - 1-2 days
[2016-10-16 05:40] LABS: Partial Thromboplastin Time 22.2 sec (22.0-30.0); Prothrombin Time 10.4 sec (9.0-12.0)
[2016-10-16 06:25] LABS: Glucose,Whole Blood 172 mg/dL (75-99)
[2016-10-16 07:41] VITALS: RESP 18
--- NOTE | 2016-10-16 07:41 | CT ---
EXAM: CT Angiography Abdomen and Pelvis With Runoff to the Lower Extremities With Intravenous Contrast CLINICAL HISTORY: Pain. TECHNIQUE: Axial computed tomographic angiography images of the abdomen, pelvis and lower extremities with intravenous contrast using CT angiography protocol. 3D and MIP reconstructed images were created and reviewed. Coronal and sagittal reformatted images were created and reviewed. CTDI is 9.00, 71.00, 5.60 mGy and DLP is 1443.80 mGy-cm. This CT exam was performed using one or more of the following dose reduction techniques: automated exposure control, adjustment of the mA and/or kV according to patient size, and/or use of iterative reconstruction technique. COMPARISON: No relevant prior studies available. FINDINGS: Lower thorax: No acute findings. VASCULATURE: Aorta: Atherosclerosis of the abdominal aorta. Abdominal aorta is patent. No abdominal aortic aneurysm or dissection. Celiac trunk and mesenteric arteries: Patent celiac trunk. Patent superior mesenteric artery. Patent inferior mesenteric artery. Atherosclerosis at the AMANDA origin. No occlusion or hemodynamically significant stenosis. Renal arteries: Atherosclerosis at the right renal artery origin. Bilateral renal arteries are patent. No occlusion or significant stenosis. Iliac arteries: Atherosclerosis of the common iliac and internal iliac arteries. Iliac arteries remain patent. No occlusion or significant stenosis. Femoral/popliteal arteries: Patent common femoral arteries. Patent superficial femoral arteries. Atherosclerosis along the distal superficial femoral arteries with varying degrees of narrowing. No evidence of occlusion or hemodynamically significant stenosis of the superficial femoral arteries. Patent profunda femoral arteries. Patent bilateral popliteal arteries without occlusion or significant stenosis. Calf/foot arteries: Narrowing of the bilateral tibioperoneal trunks, greater on the left than right. Occlusion of the left peroneal artery. Occlusion of the left anterior tibial artery distally. Left posterior tibial artery appears patent. Right peroneal artery is irregular with short segment of occlusion with reconstitution distally. Right anterior tibial artery appears irregular distally and is not well seen in the region of the ankle with possible occlusion or near occlusion in this region. Question some reconstitution of flow in the right dorsalis pedis artery. Right posterior tibial artery appears patent. Runoff into the bilateral feet is difficult to assess due to small caliber of vessels and vascular calcifications. ABDOMEN: Liver: Unremarkable. No mass. Gallbladder and bile ducts: Unremarkable. No definite gallstones. No ductal dilation. Pancreas: Unremarkable. No ductal dilation. No mass. Spleen: Unremarkable. No splenomegaly. Adrenals: Unremarkable. No mass. Kidneys and ureters: Small area of cortical hypoattenuation in the right kidney. Kidneys otherwise unremarkable. No hydronephrosis or ureteral calculus. Stomach and bowel: No evidence of bowel obstruction. No significant bowel wall thickening. Appendix: Appendix not visualized. PELVIS: Bladder: Mild prominence of bladder wall. Reproductive: Uterus not visualized. Ovaries not visualized. ABDOMEN, PELVIS and LOWER EXTREMITIES: Intraperitoneal space: No significant fluid collection. No free air. Bones/joints: Osseous degenerative changes. No acute fracture. No dislocation. Soft tissues: No fluid collection or abscess within the soft tissues. Lymph nodes: No enlarged lymph nodes. IMPRESSION: 1. Scattered atherosclerotic vascular disease with patency of the abdominal aorta and branch vessels in the abdomen and pelvis. 2. Bilateral common femoral, superficial femoral, profunda and popliteal arteries are patent. There is atherosclerosis along the distal superficial arteries bilaterally without evidence of hemodynamically significant stenosis or occlusion. 3. Narrowing of the bilateral tibioperoneal trunks, greater on the left than right. 4. Occlusion of the left peroneal artery and occlusion of the left anterior tibial artery distally. Left posterior tibial artery appears patent. 5. Right peroneal artery is irregular with apparent short segment of occlusion with reconstitution distally. Right anterior tibial artery appears irregular distally and is not well seen in the region of the ankle with possible occlusion or near occlusion in this region. Question reconstitution of flow in the right dorsalis pedis artery. Right posterior tibial artery appears patent. 6. Runoff into the bilateral feet is difficult to assess due to small caliber of vessels and vascular calcifications. Correlate for distal pulses and may consider conventional angiography or Doppler ultrasound to further assess as clinically warranted. 7. Small area of cortical hypoattenuation in the right kidney. This may represent small right renal infarct, scarring or other etiology. Kidneys otherwise unremarkable. 8. Mild prominence of bladder wall. Correlate with urinalysis to exclude cystitis.
[2016-10-16 08:44] VITALS: BP 182/87; PULSE 69; TEMP 97.7
== END 2016-10-16 08:46 | disposition left against medical advice (07) ==
LOC: EC 02:54
DX: I74.3 Embolism and thrombosis of arteries of the lower extremities (principal); E78.5 Hyperlipidemia, unspecified; E11.9 Type 2 diabetes mellitus without complications; I25.10 Atherosclerotic heart disease of native coronary artery without angina pectoris; Z87.891 Personal history of nicotine dependence; Z79.4 Long term (current) use of insulin; Z79.82 Long term (current) use of aspirin; Z79.899 Other long term (current) drug therapy; Z88.2 Allergy status to sulfonamides; Z88.5 Allergy status to narcotic agent; Z88.8 Allergy status to other drugs, medicaments and biological substances
CPT/HCPCS: 99284; 96365; 96366 ×3; 96376; 36415; 93005; 80053; 82550; 83605; 85025; 85610; 85730; 82272; 81001; 87086; 93970; 74174; J1644 ×2; 87077; 87186

== ENCOUNTER 2016-10-19 11:10 | Emergency (ER) | payer MEDICARE, OTHER ==
[2016-10-19 11:30] VITALS: BP 137/62; PULSE 88; RESP 20; TEMP 98.3
--- NOTE | 2016-10-19 12:00 | XR ---
EXAMINATION TYPE: XR foot complete RT DATE OF EXAM: 10/19/2016 CLINICAL HISTORY: pain TECHNIQUE: Frontal, lateral and oblique images of the right foot are obtained. COMPARISON: None. FINDINGS: Nondisplaced fractures identified at the base of the fifth metatarsal. No additional fractu re seen. The joint spaces appear within normal limits. The overlying soft tissue appears unremarkab le. IMPRESSION: Nondisplaced fractures identified at the base of the fifth metatarsal. ICD 10 closed FRACTURE, INITIAL EVALUATION
--- NOTE | 2016-10-19 12:01 | XR ---
EXAMINATION TYPE: XR ankle complete RT DATE OF EXAM: 10/19/2016 COMPARISON: NONE HISTORY: Pain TECHNIQUE: Frontal, lateral and oblique images of the right ankle are obtained. COMPARISON: None. FINDINGS: There is no acute fracture/dislocation evident. The joint spaces appear within normal read its. The overlying soft tissue appears unremarkable. IMPRESSION: There is no acute fracture or dislocation seen.
--- NOTE | 2016-10-19 12:13 | ED ---
Lower Extremity Injury HPI - General Chief Complaint: Extremity Injury, Lower Stated Complaint: R ankle injury Time Seen by Provider: 10/19/16 11:58 Source: patient, RN notes reviewed, old records reviewed Mode of arrival: ambulatory Limitations: no limitations - History of Present Illness Initial Comments: This is a pleasant 66-year-old female presenting to the emergency Department chief complaint of right foot pain for the past 2 days. Patient reports that she was wearing both lap and trying to step into her car when she twisted her foot and ankle. Patient states that she's been having a hard time bearing weight over 5. She states she's had no previous injuries to the right foot or ankle. She had a visiting nurse come in today and reported that she needed to come to emergency. For further evaluation. Patient states that she does see an orthopedic physician. She's been taking Motrin and Tylenol and icing and elevating her foot. - Related Data Home Medications Medication Instructions Recorded Confirmed Rosuvastatin [Crestor] 20 mg PO HS 06/07/15 10/19/16 Insulin Glargine [Lantus] 15 - 18 unit SQ HS 11/09/15 10/19/16 Aspirin 81 mg PO DAILY 01/20/16 10/19/16 Insulin Aspart [NovoLOG Flexpen] 8 units SQ AC-BRKFST 01/30/16 10/19/16 Insulin Aspart [NovoLOG Flexpen] 10 units SQ AC-LUNCH 01/30/16 10/19/16 Insulin Aspart [NovoLOG Flexpen] 15 units SQ AC-SUPPER 01/30/16 10/19/16 Previous Rx's Medication Instructions Recorded Metoprolol Tartrate [Lopressor] 25 mg PO BID #180 tab 09/16/16 amLODIPine [Norvasc] 5 mg PO DAILY #90 09/16/16 amLODIPine [Norvasc] 5 mg PO DAILY #90 tab 09/16/16 HYDROcodone/APAP 5-325MG [[place] 1 tab PO Q6HR PRN #12 tab 10/16/16 5-325] HYDROcodone/APAP 5-325MG [[place] 1 tab PO Q6HR PRN #10 tab 10/19/16 5-325] Allergies Allergy/AdvReac Type Severity Reaction Status Date / Time morphine Allergy PASSES OUT Verified 10/19/16 11:30 nitroglycerin Allergy PASSES OUT Verified 10/19/16 11:30 Sulfa (Sulfonamide AdvReac Itching Verified 10/19/16 11:30 Antibiotics) Review of Systems ROS Statement: Those systems with pertinent positive or pertinent negative responses have been documented in the HPI. ROS Other: All systems not noted in ROS Statement are negative. Past Medical History Past Medical History: Coronary Artery Disease (CAD), Diabetes Mellitus, Deep Vein Thrombosis (DVT), GERD/Reflux, Hyperlipidemia, Hypertension, Osteoarthritis (OA) Additional Past Medical History / Comment(s): vertigo, sinus problems, CONSTIPATION, COLLAPSED LUNG(HAD A C/T) History of Any Multi-Drug Resistant Organisms: None Reported Past Surgical History: Appendectomy, Cholecystectomy, Heart Catheterization With Stent, Hysterectomy, Tubal Ligation Additional Past Surgical History / Comment(s): hemorrhoidectomy, COLLAPSED LUNG HAD A C/T, TOSIN CATARACTS Past Anesthesia/Blood Transfusion Reactions: No Reported Reaction Date of Last Stent Placement:: Past Psychological History: No Psychological Hx Reported Smoking Status: Former smoker Past Alcohol Use History: None Reported Past Drug Use History: None Reported - Past Family History Mother Family Medical History: Hypertension, Seizure Disorder Father Family Medical History: Renal Disease Additional Family Medical History / Comment(s): kidney failure Son(s) Family Medical History: No Reported History Sister(s) Family Medical History: Cancer, Diabetes Mellitus, Hypertension General Exam - General Exam Comments Initial Comments: This is a 66-year-old female. No acute distress. Limitations: no limitations General appearance: alert, in no apparent distress Head exam: Present: atraumatic, normocephalic, normal inspection Eye exam: Present: normal appearance, PERRL, EOMI. Absent: scleral icterus, conjunctival injection, periorbital swelling ENT exam: Present: normal exam, mucous membranes moist Neck exam: Present: normal inspection. Absent: tenderness, meningismus, lymphadenopathy Respiratory exam: Present: normal lung sounds bilaterally. Absent: respiratory distress, wheezes, rales, rhonchi, stridor Cardiovascular Exam: Present: regular rate, normal rhythm, normal heart sounds. Absent: systolic murmur, diastolic murmur, rubs, gallop, clicks GI/Abdominal exam: Present: soft, normal bowel sounds. Absent: distended, tenderness, guarding, rebound, rigid Right Lower Leg exam: Present: normal inspection, full ROM Ankle exam: Present: normal inspection, full ROM Foot/Toe exam: Present: tenderness, swelling (Patient has some tenderness and swelling over the lateral aspect of the dorsum of the foot. He is tender over the fifth proximal metatarsal.). Absent: normal inspection Neurovascular tendon exam: Present: no vascular compromise Gait: observed and normal Back exam: Present: normal inspection Neurological exam: Present: alert, oriented X3, CN II-XII intact Psychiatric exam: Present: normal affect, normal mood Skin exam: Present: warm, dry, intact, normal color. Absent: rash Course Vital Signs 10/19/16 11:28 Temperature 98.3 F Pulse Rate 88 Respiratory 20 Rate Blood Pressure 137/62 O2 Sat by Pulse 99 Oximetry Procedures - Orthopedic Splinting/Casting Injury #1 Side: right Lower Extremity Injury Location: foot Lower Extremity Immobilizer: posterior splint Other Orthopedic Equipment: crutches Medical Decision Making - Medical Decision Making 66-year-old female presents emergency Department with right foot pain for 2 days. She is tender over the fifth metatarsal. Patient reports she's had difficulty bearing weight. Patient has evidence of a fifth metatarsal fracture. Patient was placed in a posterior splint. Discussed close follow-up with orthopedic. Patient will be discharged with a prescription for crutches and to telemetry medicine. Patient agrees treatment plan will comply. Return parameters discussed. - Radiology Data Radiology results: report reviewed There is no acute fracture dislocation seen. In the ankle. Nondisplaced fracture is identified at the base of the fifth metatarsal. Disposition Clinical Impression: Nondisplaced fracture of fifth right metatarsal bone Disposition: HOME SELF-CARE Condition: Good Additional Instructions: Patient advised to follow-up with orthopedic physician. Patient needs to be nonweightbearing until seeing orthopedic. Ambulate with crutches. Take pain medication as prescribed. Return to the emergency department if any alarming signs or symptoms occur. Patient also can take Motrin or Tylenol. Prescriptions: HYDROcodone/APAP 5-325MG [[place] 5-325] 1 tab PO Q6HR PRN #10 tab PRN Reason: Pain Referrals: Mary Heath MD [Primary Care Provider] - 1-2 days Time of Disposition: 12:20
== END 2016-10-19 12:41 | disposition home or self-care (01) ==
LOC: EC 11:10
DX: S92.354A Nondisplaced fracture of fifth metatarsal bone, right foot, initial encounter for closed fracture (principal); E11.9 Type 2 diabetes mellitus without complications; E78.5 Hyperlipidemia, unspecified; M19.90 Unspecified osteoarthritis, unspecified site; Z87.891 Personal history of nicotine dependence; Z88.5 Allergy status to narcotic agent; Z88.2 Allergy status to sulfonamides; Z88.8 Allergy status to other drugs, medicaments and biological substances; Z79.4 Long term (current) use of insulin; Z79.82 Long term (current) use of aspirin; Z79.899 Other long term (current) drug therapy; X50.1XXA Overexertion from prolonged static or awkward postures, initial encounter; Y93.89 Activity, other specified
CPT/HCPCS: 29515; 99284

== ENCOUNTER → 2017-03-14 | Outpatient (CLI) | payer MEDICARE, OTHER ==
--- NOTE | 2017-03-14 12:46 | PN ---
PROGRESS NOTE DATE OF SERVICE: 03/14/2017 A 67-year-old lady who had been followed in [facility] to discuss results of polysomnogram and multiple sleep latency test. I discussed results of sleep study with the patient in details. Polysomnogram did not show any significant respiratory abnormalities. Normal oxygenation during the sleep. No significant periodic limb movements. Sleep efficiency 91.9%. Patient slept for 6 hours 26 minutes. On the following day, MSLT showed extremely short pathological mean sleep latency only 1.9 minutes from 5 naps with 2 sleep onset REM periods. [place] Sleepiness Scale today is 15. Some snoring was documented during the sleep study. MEDICATIONS: Metoprolol, amlodipine, baby aspirin, several types of insulin. PHYSICAL EXAM: Patient in no distress. BP 145/84, HR 75, RR 16, weight 154 pounds, height 5, 6, body mass index 24.6. OROPHARYNX: Low position of soft palate. Neck Supple, no JVD. Thyroid is not palpable. LUNGS Clear to percussion and to auscultation. Good air exchange. No wheezing or rhonchi. HEART S1, S2 regular. No murmurs, gallops, or rubs. ABDOMEN Soft and nontender. Bowel sounds are present. No organomegaly appreciated. EXTREMITIES No clubbing or cyanosis. 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 Cranial nerves 2 to 7 intact. There is no fasciculation or atrophy. noted. No focal deficits observed. IMPRESSION: 1. Snoring, but no significant respiratory abnormalities have been documented during the sleep study. 2. Multiple sleep latency test confirmed extremely short sleep latency and 2 sleep onset REM periods were documented, which is classical indication of narcolepsy. 3. Diabetes mellitus. 4. History of peripheral neuropathy secondary to diabetes. 5. Hypertension. 6. Status post tubal ligation. 7. Status post right-sided spontaneous pneumothorax at age of 25. 8. Status post hemorrhoidectomy. 9. Status post cholecystectomy. 10.History of retina problems according to patient there was some swelling of the retina. PLAN: 1. Patient will be started on treatment with daytime stimulants. My choice is armodafinil because other group of medications may increase heart rate and blood pressure. Patient is already on treatment for hypertension. 2. Sleep hygiene with regular time in bed for at least 8 hours. 3. No driving if feeling any sleepiness. Extreme precautions to driving. Patient is aware about civil and criminal liability for unsafe driving. 4. Preferable position during the sleep on the side. Snoring was documented during the sleep study, but again scoring of her respiration with 3% oxygen desaturation criteria did not show any significant respiratory abnormalities. 5. HLA profile for narcolepsy. Thank you very much for allowing me to participate in the management of your patient. Sincerely, Dl Dobbins MD, PhD, FAASM Diplomat of [place] [employer] [place] [employer] [facility] [place] MMODL / TONYN: [id number] /
== END | disposition home or self-care (01) ==
LOC: SLEEP 11:10
PROVIDERS: ATTEND Internal Medicine
DX: G47.419 Narcolepsy without cataplexy (principal); R06.83 Snoring; E11.42 Type 2 diabetes mellitus with diabetic polyneuropathy; I10 Essential (primary) hypertension; Z98.51 Tubal ligation status; Z87.09 Personal history of other diseases of the respiratory system; Z98.890 Other specified postprocedural states; Z90.49 Acquired absence of other specified parts of digestive tract; Z86.69 Personal history of other diseases of the nervous system and sense organs; Z79.899 Other long term (current) drug therapy; Z79.82 Long term (current) use of aspirin; Z79.4 Long term (current) use of insulin

== ENCOUNTER 2017-04-07 16:42 | Inpatient (IN) | payer MEDICARE, OTHER ==
[2017-04-07 16:59] VITALS: TEMP 96.9
[2017-04-07 17:10] LABS: Glucose,Whole Blood >600 mg/dL (75-99)
[2017-04-07] MEDS ORDERED: SODIUM CHLORIDE 0.9% 2,000 ML IV STA (17:10)
--- NOTE | 2017-04-07 17:23 | ED ---
Recheck HPI - General Chief Complaint: Recheck/Abnormal Lab/Rx Stated Complaint: hyperglycemia Time Seen by Provider: 04/07/17 16:59 Source: patient, RN notes reviewed Mode of arrival: EMS Limitations: no limitations - History of Present Illness Initial Comments: This is a 67-year-old female who presents to the emergency department via EMS with chief complaint of hyperglycemia. Patient states that she ran out of her Lantus on . She states that her doctor's office has been closed and has been unable to get a refill of her medication. She states that she has been having blood glucose levels that measure 600 or read "high." She states that she has still been taking Novolog. She takes 8 units in the morning, 10 units at lunch and 12 units at dinnertime. She states that she's been using her sliding scale when her reading is greater than 600. She has been taking 16 units additionally when this happens. Patient states that she has been having all over body cramping, abdominal pain and chills. She states that on Saturday she had one episode of vomiting and diarrhea. She states that she has also felt short of breath, reporting that she had to use her 's oxygen yesterday. Denies any chest pain. - Related Data Home Medications Medication Instructions Recorded Confirmed Rosuvastatin [Crestor] 20 mg PO HS 06/07/15 04/07/17 Aspirin 81 mg PO DAILY 01/20/16 04/07/17 Metoprolol Tartrate [Lopressor] 25 mg PO DAILY 04/07/17 04/07/17 Montelukast [Singulair] 10 mg PO HS 04/07/17 04/07/17 amLODIPine [Norvasc] 10 mg PO DAILY 04/07/17 04/07/17 Allergies Allergy/AdvReac Type Severity Reaction Status Date / Time morphine Allergy PASSES OUT Verified 04/07/17 17:43 nitroglycerin Allergy PASSES OUT Verified 04/07/17 17:43 Sulfa (Sulfonamide AdvReac Itching Verified 04/07/17 17:43 Antibiotics) Review of Systems ROS Statement: Those systems with pertinent positive or pertinent negative responses have been documented in the HPI. ROS Other: All systems not noted in ROS Statement are negative. Past Medical History Past Medical History: Coronary Artery Disease (CAD), Diabetes Mellitus, Deep Vein Thrombosis (DVT), GERD/Reflux, Hyperlipidemia, Hypertension, Osteoarthritis (OA) Additional Past Medical History / Comment(s): vertigo, sinus problems, CONSTIPATION, COLLAPSED LUNG, narcolepsy History of Any Multi-Drug Resistant Organisms: None Reported Past Surgical History: Appendectomy, Cholecystectomy, Heart Catheterization With Stent, Hysterectomy, Tubal Ligation Additional Past Surgical History / Comment(s): hemorrhoidectomy, COLLAPSED LUNG HAD A C/T, TOSIN CATARACTS Past Anesthesia/Blood Transfusion Reactions: No Reported Reaction Date of Last Stent Placement:: Past Psychological History: No Psychological Hx Reported Smoking Status: Former smoker Past Alcohol Use History: None Reported Past Drug Use History: None Reported - Past Family History Mother Family Medical History: Hypertension, Seizure Disorder Father Family Medical History: Renal Disease Additional Family Medical History / Comment(s): kidney failure Son(s) Family Medical History: No Reported History Sister(s) Family Medical History: Cancer, Diabetes Mellitus, Hypertension General Exam - General Exam Comments Initial Comments: General: Awake and alert, well-developed; in no apparent distress. She appears fatigued. HEENT: Head atraumatic, normocephalic. Pupils are equal, round and reactive to light. Extraocular movements intact. Mucus membranes appear dry. Neck: Supple. Normal ROM. Cardiovascular: Regular rate and rhythm. No murmurs, rubs or gallops. Chest symmetrical. Respiratory: Lungs clear to auscultation bilaterally. No wheezes, rales or rhonchi. Normal respiratory effort with no use of accessory muscles. Abdomen: Soft, non-distended. Generalized tenderness on palpation with guarding throughout. No rigidity or rebound. Normal bowel sounds in all 4 quadrants. Musculoskeletal: Normal ROM, no tenderness bilateral upper and lower extremities. Skin: [place], warm and dry without rashes or lesions. Neurological: Alert and oriented x3. CN II-XII grossly intact. Speech is fluent and answers are appropriate. No focal neuro deficits. Psychiatric: Normal mood and affect. No overt signs of depression or anxiety noted. Limitations: no limitations Course Vital Signs 04/07/17 16:56 Temperature 96.9 F L Pulse Rate 88 Respiratory 18 Rate Blood Pressure 115/56 O2 Sat by Pulse 97 Oximetry Medical Decision Making - Medical Decision Making This is a 67-year-old female who presents to the emergency department with chief complaint of hyperglycemia. Patient's blood glucose is 712 with an anion gap of 25. Potassium is 5.3. BUN 40 and creatinine 1.18. Acetone is positive. Patient started on insulin bolus and drip. She will be admitted to Dr. Villeda with diagnoses of DKA, hyperkalemia, dehydration, hyponatremia and acute kidney injury. Patient's vital signs are stable and she is in no acute distress. Findings and plan were discussed with patient who is in agreement and voices understanding. All questions answered. - Lab Data Result diagrams: 04/07/17 18:00 04/07/17 18:00 Lab Results 04/07/17 04/07/17 04/07/17 Range/Units 17:02 18:00 18:00 WBC 9.9 (3.8-10.6) k/uL RBC 3.98 (3.80-5.40) m/uL Hgb 10.8 L (11.4-16.0) gm/dL Hct 37.7 (34.0-46.0) % MCV 94.8 (80.0-100.0) fL MCH 27.1 (25.0-35.0) pg MCHC 28.6 L (31.0-37.0) g/dL RDW 14.8 (11.5-15.5) % Plt Count 268 (150-450) k/uL Neutrophils % 85 % Lymphocytes % 8 % Monocytes % 6 % Eosinophils % 0 % Basophils % 0 % Neutrophils # 8.4 H (1.3-7.7) k/uL Lymphocytes # 0.8 L (1.0-4.8) k/uL Monocytes # 0.6 (0-1.0) k/uL Eosinophils # 0.0 (0-0.7) k/uL Basophils # 0.0 (0-0.2) k/uL Hypochromasia Marked Sodium 131 L (137-145) mmol/L Potassium 5.3 H (3.5-5.1) mmol/L Chloride 92 L (98-107) mmol/L Carbon Dioxide 14 L (22-30) mmol/L Anion Gap 25 mmol/L BUN 40 H (7-17) mg/dL Creatinine 1.18 H (0.52-1.04) mg/dL Est GFR (MDRD) Af Amer 55 (>60 ml/min/1.73 sqM) Est GFR (MDRD) Non-Af 45 (>60 ml/min/1.73 sqM) Glucose 712 H* (74-99) mg/dL POC Glucose (mg/dL) >600 H (75-99) mg/dL POC Glu [employer] Brittni Clark Calcium 8.8 (8.4-10.2) mg/dL Phosphorus 4.7 H (2.5-4.5) mg/dL Magnesium 1.8 (1.6-2.3) mg/dL Total Bilirubin 0.5 (0.2-1.3) mg/dL AST 17 (14-36) U/L ALT 31 (9-52) U/L Alkaline Phosphatase 101 (38-126) U/L Total Protein 5.5 L (6.3-8.2) g/dL Albumin 3.0 L (3.5-5.0) g/dL Amylase 32 (30-110) U/L Lipase 30 (23-300) U/L Acetone, Qual Positive (Negative) EKG at 17:23:27 normal sinus rhythm. Ventricular rate 88 bpm, ME interval 152, QRS duration 110, QT/QTC 376/454 04/07/17 17:30 Disposition Clinical Impression: DKA (diabetic ketoacidoses), Hyperkalemia, Hyponatremia, Dehydration, Acute kidney failure Disposition: ADMITTED IP TO THIS HOSP Condition: Stable Referrals: Mary Heath MD [Primary Care Provider] - 1-2 days Time of Disposition: 18:59
[2017-04-07 18:16] LABS: Basophils % (A) 0 %; Eosinophils % (A) 0 %; HCT 37.7 % (34.0-46.0); HGB 10.8 gm/dL (11.4-16.0); Hypochromasia Marked; Lymphocytes # (A) 0.8 k/uL (1.0-4.8); Lymphocytes % (A) 8 %; MCH 27.1 pg (25.0-35.0); MCHC 28.6 g/dL (31.0-37.0); MCV 94.8 fL (80.0-100.0); Mean Platelet Volume 8.8; Monocytes # (A) 0.6 k/uL (0-1.0); Monocytes % (A) 6 %; Neutrophils # (A) 8.4 k/uL (1.3-7.7); Neutrophils % (A) 85 %; Platelet Count 268 k/uL (150-450); RBC 3.98 m/uL (3.80-5.40); RDW 14.8 % (11.5-15.5); WBC 9.9 k/uL (3.8-10.6)
[2017-04-07 18:20] LABS: ALT 31 U/L (9-52); AST 17 U/L (14-36); Alkaline Phosphatase 101 U/L (38-126); Amylase 32 U/L (30-110); Anion Gap 25 mmol/L; Blood Urea Nitrogen 40 mg/dL (7-17); Calcium 8.8 mg/dL (8.4-10.2); Carbon Dioxide 14 mmol/L (22-30); Chloride 92 mmol/L (98-107); Lipase 30 U/L (23-300); Magnesium 1.8 mg/dL (1.6-2.3); Phosphorus 4.7 mg/dL (2.5-4.5); Potassium 5.3 mmol/L (3.5-5.1); Sodium 131 mmol/L (137-145); Total Bilirubin 0.5 mg/dL (0.2-1.3); Total Protein 5.5 g/dL (6.3-8.2)
[2017-04-07 18:33] LABS: Glucose 712 mg/dL (74-99)
[2017-04-07] MEDS ORDERED: INSULIN REGULAR BOLUS (FROM DRIP BAG) IV ONE (18:34)
[2017-04-07 19:05] LABS: Glucose,Whole Blood >600 mg/dL (75-99)
--- NOTE | 2017-04-07 19:23 | XR ---
EXAMINATION TYPE: XR chest 2V DATE OF EXAM: 04/07/2017 COMPARISON: NONE HISTORY: Hyperglycemia. Chest pain. TECHNIQUE: Frontal and lateral views of the chest are obtained. FINDINGS: There is no focal air space opacity, pleural effusion, or pneumothorax seen. The cardiac silhouette size is within normal limits. The osseous structures are intact. Moderate multilevel deg enerative changes of the thoracic spine are noted pulmonary hyperinflation likely relates to degree o f inspiration is there is no flattening of the diaphragms or increased anterior posterior diameter of the chest. Correlate with pulmonary function tests to exclude COPD. Mild acromioclavicular arthropat hy is noted. IMPRESSION: No acute cardiopulmonary process.
[2017-04-07] MEDS: INSULIN REGULAR 100 UNIT in SODIUM CHLORIDE 0.9% 100 ML IV SCH (19:35)
[2017-04-07] MEDS: SODIUM CHLORIDE 0.9% 1,000 ML IV SCH (19:35)
[2017-04-07 20:06] LABS: Appearance,Urine Clear (Clear); Bilirubin,Urine Negative (Negative); Blood,Urine Negative (Negative); Color,Urine Light Yellow; Glucose,Urine (UA) 4+ (Negative); Leukocyte Esterase,Urine Negative (Negative); Nitrite,Urine Negative (Negative); Protein,Urine Negative (Negative); Specific Gravity,Urine 1.016 (1.001-1.035); Urobilinogen,Urine <2.0 mg/dL (<2.0)
[2017-04-07 20:13] LABS: Ketones,Urine 3+ (Negative)
[2017-04-07 20:32] LABS: Glucose,Whole Blood >600 mg/dL (75-99)
[2017-04-07 21:17] LABS: Glucose,Whole Blood >600 mg/dL (75-99)
[2017-04-07 22:09] LABS: Glucose,Whole Blood 538 mg/dL (75-99)
[2017-04-07 23:07] LABS: Glucose,Whole Blood 484 mg/dL (75-99)
[2017-04-07 23:17] LABS: Phosphorus 4.7 mg/dL (2.5-4.5); Potassium 4.1 mmol/L (3.5-5.1)
[2017-04-07 23:45] LABS: Glucose,Whole Blood 470 mg/dL (75-99)
[2017-04-08] MEDS: SODIUM CHLORIDE 0.9% 1,000 ML IV SCH ×3 (00:38→09:53)
[2017-04-08 00:44] LABS: Glucose,Whole Blood 391 mg/dL (75-99)
[2017-04-08 01:49] LABS: Glucose,Whole Blood 294 mg/dL (75-99)
[2017-04-08] MEDS ORDERED: D5-0.45% NACL WITH KCL 20MEQ/L 1,000 ML IV SCH (02:00)
[2017-04-08 02:52] LABS: Glucose,Whole Blood 310 mg/dL (75-99)
[2017-04-08] MEDS: INSULIN REGULAR 100 UNIT in SODIUM CHLORIDE 0.9% 100 ML IV SCH (03:50)
[2017-04-08 03:52] LABS: Glucose,Whole Blood 239 mg/dL (75-99)
[2017-04-08 04:43] LABS: Glucose,Whole Blood 229 mg/dL (75-99)
[2017-04-08 05:46] LABS: Glucose,Whole Blood 200 mg/dL (75-99)
[2017-04-08 05:47] VITALS: RESP 14
[2017-04-08 06:39] LABS: Glucose,Whole Blood 150 mg/dL (75-99)
[2017-04-08 08:02] LABS: Glucose,Whole Blood 234 mg/dL (75-99)
[2017-04-08] MEDS ORDERED: INSULIN ASPART 100 UNIT/ML 1 ML 10 ML VIAL SQ SCH ×4 (09:00→12:30)
[2017-04-08] MEDS ORDERED: METOPROLOL TARTRATE 25 MG TAB PO SCH (09:00)
[2017-04-08] MEDS ORDERED: amLODIPine 10 MG TAB PO SCH (09:00)
[2017-04-08] MEDS ORDERED: NON-FORMULARY DRUG (Insulin Glargine 15 UNIT) SQ SCH (09:00)
[2017-04-08] MEDS ORDERED: ASPIRIN 81 MG PO SCH (09:00)
[2017-04-08 10:59] LABS: Glucose,Whole Blood 79 mg/dL (75-99)
[2017-04-08 11:14] VITALS: BP 121/59; PULSE 76
[2017-04-08 12:16] LABS: Glucose,Whole Blood 123 mg/dL (75-99)
[2017-04-08] MEDS ORDERED: ATORVASTATIN 40 MG TAB PO SCH (21:00)
[2017-04-08] MEDS ORDERED: MONTELUKAST 10 MG TAB PO SCH (21:00)
[2017-04-08 23:10] LABS: Hemoglobin A1C 12.7 % (4.0-6.0)
[2017-04-09] MEDS ORDERED: INSULIN ASPART 100 UNIT/ML 1 ML 10 ML VIAL SQ SCH (07:30)
--- NOTE | 2017-04-09 08:08 | P.HPIM ---
History of Present Illness H&P Date: 04/08/17 Chief Complaint: Hyperglycemia HISTORY AND PHYSICAL AND DISCHARGE SUMMARY: This is a 67-year-old -[place] female patient of Dr. Heath with past medical history of diabetes mellitus type 2 insulin-dependent with diabetic polyneuropathy, hypertension with hypertensive cardiovascular disease and left ventricular hypertrophy, coronary artery disease status post PCI in February 2010 , hyperlipidemia, DVT, chronic back pain. Patient gives history that she ran out of her Lantus on . She usually gets this through the mail from her pharmacy and states she has never run out before. She tried to use short acting insulin to cover her long-acting but her blood sugars became too high and she was more than 600. Her shoe designer is Dr. Vega She came into [facility] emergency center for evaluation and was found to have a blood sugar of 712, sodium 131, potassium 5.3, BUN 40, creatinine 1.18 with anion gap of 25, acetone positive. Patient was started on insulin drip and admitted to the hospital but because beds were not available on selective care, patient remained in the emergency center and was subsequently discharged home on April 08. Her last blood sugars were 123, 79, 234 and 150. She was provided with a prescription for Lantus that was sent to [facility] pharmacy. Patient was also provided with a prescription for her Lantus for mail order. Patient was discharged home in stable condition. Hemoglobin A1c 12.7. Discharge Medication List Rosuvastatin [Crestor] 20 mg PO HS 06/07/15 [History] Aspirin 81 mg PO DAILY 01/20/16 [History] Metoprolol Tartrate [Lopressor] 25 mg PO DAILY 04/07/17 [History] Montelukast [Singulair] 10 mg PO HS 04/07/17 [History] amLODIPine [Norvasc] 10 mg PO DAILY 04/07/17 [History] Insulin Aspart [NovoLOG] 0 units SQ ACHS 04/08/17 [History] Insulin Aspart [NovoLOG] 8 unit SQ DAILY 04/08/17 [History] Insulin Aspart [NovoLOG] 10 unit SQ DAILY 04/08/17 [History] Insulin Aspart [NovoLOG] 12 unit SQ DAILY 04/08/17 [History] Insulin Glargine [Lantus] 15 unit SQ DAILY #1 vial 04/08/17 [Rx] Review of Systems All systems: negative Constitutional: Reports chills, Reports weakness, Denies fever Eyes: denies blurred vision, denies pain Ears, nose, mouth and throat: Denies headache, Denies sore throat Cardiovascular: Denies chest pain, Denies decreased exercise tolerance, Denies dyspnea on exertion, Denies leg edema, Denies lightheadedness, Denies shortness of breath, Denies syncope Respiratory: Denies cough Gastrointestinal: Reports abdominal pain, Denies diarrhea, Denies nausea, Denies vomiting Genitourinary: Denies dysuria, Denies hematuria Musculoskeletal: Denies myalgias Integumentary: Denies pruritus, Denies rash Neurological: Denies numbness, Denies weakness Psychiatric: Denies anxiety, Denies depression Endocrine: Denies fatigue, Denies weight change Past Medical History Past Medical History: Coronary Artery Disease (CAD), Diabetes Mellitus, Deep Vein Thrombosis (DVT), GERD/Reflux, Hyperlipidemia, Hypertension, Osteoarthritis (OA) Additional Past Medical History / Comment(s): IDDM type II with diabetic neuropathy, narcolepsy, DVTs L lower extremity, vertigo occasionally, PAD, constipation, lumbar pain with bilateral sciatica, anemia, pneumothorax when pt was in her 20s with chest tube. History of Any Multi-Drug Resistant Organisms: None Reported Past Surgical History: Appendectomy, Cholecystectomy, Heart Catheterization With Stent, Hysterectomy, Tubal Ligation Additional Past Surgical History / Comment(s): PCI/stent, ectopic pregnancies that led to eventual total hysterectomy, EGD, colonoscopy, L breast biopsy- benign, bilateral carpal tunnel releases, bilateral eyes laser surgery/lens. Past Anesthesia/Blood Transfusion Reactions: Postoperative Nausea & Vomiting ( PONV) Date of Last Stent Placement:: Smoking Status: Never smoker - Past Family History Mother Family Medical History: Hypertension, Seizure Disorder Additional Family Medical History / Comment(s): Mother at age 75 from seizure myocardial infarction. Father Family Medical History: Renal Disease Additional Family Medical History / Comment(s): Father at age 58 from acute renal failure and he was an alcoholic. Son(s) Family Medical History: No Reported History Additional Family Medical History / Comment(s): Patient has 2 sons with no major medical problems. Sister(s) Family Medical History: Cancer, Diabetes Mellitus, Hypertension Additional Family Medical History / Comment(s): Patient had 3 sisters, 1 is after 2 living sisters have hypertension and diabetes. Medications and Allergies Home Medications Medication Instructions Recorded Confirmed Type Rosuvastatin [Crestor] 20 mg PO HS 06/07/15 04/07/17 History Aspirin 81 mg PO DAILY 01/20/16 04/07/17 History Metoprolol Tartrate [Lopressor] 25 mg PO DAILY 04/07/17 04/07/17 History Montelukast [Singulair] 10 mg PO HS 04/07/17 04/07/17 History amLODIPine [Norvasc] 10 mg PO DAILY 04/07/17 04/07/17 History Insulin Aspart [NovoLOG] 0 units SQ ACHS 04/08/17 04/08/17 History Insulin Aspart [NovoLOG] 8 unit SQ DAILY 04/08/17 04/08/17 History Insulin Aspart [NovoLOG] 10 unit SQ DAILY 04/08/17 04/08/17 History Insulin Aspart [NovoLOG] 12 unit SQ DAILY 04/08/17 04/08/17 History Insulin Glargine [Lantus] 15 unit SQ DAILY #1 vial 04/08/17 Rx Allergies Allergy/AdvReac Type Severity Reaction Status Date / Time morphine Allergy PASSES OUT Verified 04/07/17 17:43 nitroglycerin Allergy PASSES OUT Verified 04/07/17 17:43 Sulfa (Sulfonamide AdvReac Itching Verified 04/07/17 17:43 Antibiotics) Physical Exam Vitals: Vital Signs Temp Pulse Pulse Resp BP BP Pulse Ox 04/08/17 11:13 76 121/59 97 04/08/17 08:00 86 148/70 99 04/08/17 05:45 79 14 114/57 97 04/08/17 04:44 86 15 112/58 96 04/08/17 03:54 86 18 118/58 99 04/08/17 02:50 80 18 106/59 99 04/08/17 01:42 81 15 107/54 98 04/08/17 00:38 85 15 114/57 97 04/07/17 23:43 91 17 113/57 100 04/07/17 22:43 94 18 114/54 100 04/07/17 21:51 88 18 108/55 99 04/07/17 20:40 97 18 98/50 98 04/07/17 19:30 95 18 109/53 94 L 04/07/17 18:32 95 18 105/55 98 04/07/17 16:56 96.9 F L 88 18 115/56 97 Intake and Output 04/08/17 04/08/17 04/08/17 06:59 14:59 22:59 Intake Total 90.947 170.097 Balance 90.947 170.097 Intake: Intake, IV Titration 90.947 170.097 Amount D5-0.45% NaCl with KCl 150 20Meq/l 1,000 ml @ 150 mls/hr IV .[id number] [facility] Rx# :[id number] Insulin Regular 100 unit 90.947 20.097 In Sodium Chloride 0.9% 100 ml @ 0.1 UNITS/KG/HR 6.41 mls/hr IV .[id number] [facility] Rx#:[id number] General appearance: no acute distress - EENT Eyes: Reports anicteric sclerae, Reports disc margins sharp, Reports PERRLA, Reports normal apperance, Denies ptosis, Denies scleral icterus ENT: Reports hearing grossly normal, Reports NA/AT, Reports normal oropharynx, Denies thrush Ears: bilateral: normal - Neck Neck: Reports normal ROM, Denies lymphadenopathy, Denies rigidity, Denies stridor, Denies thyromegaly Carotids: bilateral: upstroke normal Thyroid: bilateral: normal size - Respiratory Respiratory: bilateral: diminished, negative: dullness, rales, rhonchi, wheezing , prolonged expiration - Cardiovascular Rhythm: regular Heart sounds: normal: S1, S2 Abnormal Heart Sounds: Denies systolic murmur, Denies S3 Gallop, Denies S4 Gallop, Denies click - Gastrointestinal General gastrointestinal: Reports normal bowel sounds, Reports soft, Denies splenomegaly, Denies tenderness, Denies umbilical hernia, Denies ventral hernia - Integumentary Integumentary: Reports normal, Reports normal turgor - Neurologic Neurologic: CNII-XII intact - Musculoskeletal Musculoskeletal: Reports generalized weakness, Reports strength equal bilaterally - Psychiatric Psychiatric: Reports A&O x's 3, Reports appropriate affect, Reports intact judgment & insight Results CBC & Chem 7: 04/07/17 18:00 04/07/17 22:39 Labs: Abnormal Lab Results - Last 24 Hours (Table) 04/07/17 04/07/1718 Range/Units 17:02 18:00 18:00 Hgb 10.8 L (11.4-16.0) gm/dL MCHC 28.6 L (31.0-37.0) g/dL Neutrophils # 8.4 H (1.3-7.7) k/uL Lymphocytes # 0.8 L (1.0-4.8) k/uL Sodium 131 L (137-145) mmol/L Potassium 5.3 H (3.5-5.1) mmol/L Chloride 92 L (98-107) mmol/L Carbon Dioxide 14 L (22-30) mmol/L BUN 40 H (7-17) mg/dL Creatinine 1.18 H (0.52-1.04) mg/dL Glucose 712 H* (74-99) mg/dL POC Glucose (mg/dL) >600 H (75-99) mg/dL Phosphorus 4.7 H (2.5-4.5) mg/dL Total Protein 5.5 L (6.3-8.2) g/dL Albumin 3.0 L (3.5-5.0) g/dL Urine Glucose (UA) (Negative) Urine Ketones (Negative) 04/07/17 04/07/17 04/07/17 Range/Units 18:49 19:51 20:15 Hgb (11.4-16.0) gm/dL MCHC (31.0-37.0) g/dL Neutrophils # (1.3-7.7) k/uL Lymphocytes # (1.0-4.8) k/uL Sodium (137-145) mmol/L Potassium (3.5-5.1) mmol/L Chloride (98-107) mmol/L Carbon Dioxide (22-30) mmol/L BUN (7-17) mg/dL Creatinine (0.52-1.04) mg/dL Glucose (74-99) mg/dL POC Glucose (mg/dL) >600 H >600 H (75-99) mg/dL Phosphorus (2.5-4.5) mg/dL Total Protein (6.3-8.2) g/dL Albumin (3.5-5.0) g/dL Urine Glucose (UA) 4+ H (Negative) Urine Ketones 3+ H (Negative) 04/07/17 04/07/17 04/07/17 Range/Units 20:38 21:41 22:39 Hgb (11.4-16.0) gm/dL MCHC (31.0-37.0) g/dL Neutrophils # (1.3-7.7) k/uL Lymphocytes # (1.0-4.8) k/uL Sodium (137-145) mmol/L Potassium (3.5-5.1) mmol/L Chloride 96 L (98-107) mmol/L Carbon Dioxide 15 L (22-30) mmol/L BUN 42 H (7-17) mg/dL Creatinine 1.30 H (0.52-1.04) mg/dL Glucose 546 H* (74-99) mg/dL POC Glucose (mg/dL) >600 H 538 H (75-99) mg/dL Phosphorus 4.7 H (2.5-4.5) mg/dL Total Protein (6.3-8.2) g/dL Albumin (3.5-5.0) g/dL Urine Glucose (UA) (Negative) Urine Ketones (Negative) 04/07/17 04/07/17 04/08/17 Range/Units 22:40 23:41 00:41 Hgb (11.4-16.0) gm/dL MCHC (31.0-37.0) g/dL Neutrophils # (1.3-7.7) k/uL Lymphocytes # (1.0-4.8) k/uL Sodium (137-145) mmol/L Potassium (3.5-5.1) mmol/L Chloride (98-107) mmol/L Carbon Dioxide (22-30) mmol/L BUN (7-17) mg/dL Creatinine (0.52-1.04) mg/dL Glucose (74-99) mg/dL POC Glucose (mg/dL) 484 H 470 H 391 H (75-99) mg/dL Phosphorus (2.5-4.5) mg/dL Total Protein (6.3-8.2) g/dL Albumin (3.5-5.0) g/dL Urine Glucose (UA) (Negative) Urine Ketones (Negative) 04/08/17 04/08/17 04/08/17 Range/Units 01:39 02:48 03:50 Hgb (11.4-16.0) gm/dL MCHC (31.0-37.0) g/dL Neutrophils # (1.3-7.7) k/uL Lymphocytes # (1.0-4.8) k/uL Sodium (137-145) mmol/L Potassium (3.5-5.1) mmol/L Chloride (98-107) mmol/L Carbon Dioxide (22-30) mmol/L BUN (7-17) mg/dL Creatinine (0.52-1.04) mg/dL Glucose (74-99) mg/dL POC Glucose (mg/dL) 294 H 310 H 239 H (75-99) mg/dL Phosphorus (2.5-4.5) mg/dL Total Protein (6.3-8.2) g/dL Albumin (3.5-5.0) g/dL Urine Glucose (UA) (Negative) Urine Ketones (Negative) 04/08/17 04/08/17 04/08/17 Range/Units 04:40 05:42 06:36 Hgb (11.4-16.0) gm/dL MCHC (31.0-37.0) g/dL Neutrophils # (1.3-7.7) k/uL Lymphocytes # (1.0-4.8) k/uL Sodium (137-145) mmol/L Potassium (3.5-5.1) mmol/L Chloride (98-107) mmol/L Carbon Dioxide (22-30) mmol/L BUN (7-17) mg/dL Creatinine (0.52-1.04) mg/dL Glucose (74-99) mg/dL POC Glucose (mg/dL) 229 H 200 H 150 H (75-99) mg/dL Phosphorus (2.5-4.5) mg/dL Total Protein (6.3-8.2) g/dL Albumin (3.5-5.0) g/dL Urine Glucose (UA) (Negative) Urine Ketones (Negative) 04/08/17 04/08/17 Range/Units 07:48 11:12 Hgb (11.4-16.0) gm/dL MCHC (31.0-37.0) g/dL Neutrophils # (1.3-7.7) k/uL Lymphocytes # (1.0-4.8) k/uL Sodium (137-145) mmol/L Potassium (3.5-5.1) mmol/L Chloride (98-107) mmol/L Carbon Dioxide (22-30) mmol/L BUN (7-17) mg/dL Creatinine (0.52-1.04) mg/dL Glucose (74-99) mg/dL POC Glucose (mg/dL) 234 H 123 H (75-99) mg/dL Phosphorus (2.5-4.5) mg/dL Total Protein (6.3-8.2) g/dL Albumin (3.5-5.0) g/dL Urine Glucose (UA) (Negative) Urine Ketones (Negative) Thrombosis Risk Factor Assmnt - Choose All That Apply Any of the Below Risk Factors Present?: Yes Other Risk Factors: Yes Each Risk Factor Represents 2 Points: Age 61-74 years Other congenital or acquired thrombophilia - If yes, enter type in comment: No Thrombosis Risk Factor Assessment Total Risk Factor Score: 2 Thrombosis Risk Factor Assessment Level: Low Risk Assessment and Plan Plan: 1. Diabetic ketoacidosis. Admit the patient to selective care, IV fluid resuscitation, insulin drip, and we will transition the patient to home dose of Lantus and NovoLog. 2. Uncontrolled diabetes mellitus type 2. Transition the patient from insulin drip to Tresiba. 3. Diabetic polyneuropathy. Could not tolerate gabapentin. 4. Hypertension and hypertensive cardiovascular disease. Continue Lopressor 25 mg daily and amlodipine 10 mg orally once every day. 5. Hyperlipidemia. Continue Crestor 20 g orally once every day. 6. CAD status post PCI in 2010. Continue Crestor 20 mg orally once every day, aspirin 81 mg orally once every day. 7. GI prophylaxis. Protonix 40 mg orally once every day. 8. DVT prophylaxis. 9. Admit to inpatient. Estimated length of stay 1 midnights. Discharge plan: Return home Impression and plan of care have been directed as dictated by the signing physician. Faith Camarillo nurse practitioner acting as scribe for signing physician.
[2017-04-09] MEDS ORDERED: INSULIN DETEMIR 100 UNIT/ML 10 ML VIAL SQ SCH (09:00)
== END 2017-04-08 13:30 | disposition home or self-care (01) | DRG 638 ==
LOC: EC 16:42 → 6SEL 18:52
PROVIDERS: ADMIT Family Medicine; ATTEND Family Medicine
DX: E11.10 Type 2 diabetes mellitus with ketoacidosis without coma (principal); E87.1 Hypo-osmolality and hyponatremia; N17.9 Acute kidney failure, unspecified; E87.5 Hyperkalemia; I11.9 Hypertensive heart disease without heart failure; E78.5 Hyperlipidemia, unspecified; E11.42 Type 2 diabetes mellitus with diabetic polyneuropathy; E86.0 Dehydration; G47.419 Narcolepsy without cataplexy; I25.10 Atherosclerotic heart disease of native coronary artery without angina pectoris; K21.9 Gastro-esophageal reflux disease without esophagitis; G89.29 Other chronic pain; M19.90 Unspecified osteoarthritis, unspecified site; M54.31 Sciatica, right side; M54.32 Sciatica, left side; E11.51 Type 2 diabetes mellitus with diabetic peripheral angiopathy without gangrene; Z79.4 Long term (current) use of insulin; Z79.82 Long term (current) use of aspirin; Z79.899 Other long term (current) drug therapy; Z88.5 Allergy status to narcotic agent; Z88.2 Allergy status to sulfonamides; Z88.8 Allergy status to other drugs, medicaments and biological substances; Z90.710 Acquired absence of both cervix and uterus; Z87.891 Personal history of nicotine dependence; Z95.5 Presence of coronary angioplasty implant and graft; Z90.49 Acquired absence of other specified parts of digestive tract; Z86.718 Personal history of other venous thrombosis and embolism; Z82.49 Family history of ischemic heart disease and other diseases of the circulatory system
CPT/HCPCS: 36415; 71046; 80051; 80053; 81003; 82009; 82150; 82565; 82947; 83036; 83690; 83735; 84100; 84520; 85025; 93005; 96360; 99285

== ENCOUNTER 2017-09-05 10:24 | Emergency (ER) | payer MEDICARE, OTHER ==
[2017-09-05 10:36] VITALS: TEMP 97
[2017-09-05 10:46] LABS: Glucose,Whole Blood 74 mg/dL (75-99)
--- NOTE | 2017-09-05 11:13 | ED ---
General Adult HPI - General Chief complaint: Recheck/Abnormal Lab/Rx Stated complaint: Hypoglycemia Time Seen by Provider: 09/05/17 11:02 Source: patient, EMS, RN notes reviewed Mode of arrival: EMS Limitations: no limitations - History of Present Illness Initial comments: Patient is a pleasant 67-year-old female presenting to the emergency department with hypoglycemia. Patient woke up this morning with blood sugar of 238. Patient did take her insulin and did drink some orange juice. Patient did not eat breakfast and was taking out the trash. Patient had altered level of consciousness. Blood sugar by EMS was 38. Patient was given sugar with improvement of symptoms. Patient feels normal at this time and has no complaints. Patient does admit to having labile blood pressure and blood sugar. Patient has not taken her blood pressure medicine this morning however did just taken the emergency department. Patient is currently eating. - Related Data Home Medications Medication Instructions Recorded Confirmed Aspirin 81 mg PO DAILY 01/20/16 09/05/17 Metoprolol Tartrate [Lopressor] 25 mg PO BID 04/07/17 09/05/17 amLODIPine [Norvasc] 10 mg PO DAILY 04/07/17 09/05/17 Insulin Aspart [NovoLOG] See Protocol SQ ACHS 04/08/17 09/05/17 Insulin Glargine [Lantus] 15 unit SQ HS 09/05/17 09/05/17 Losartan Potassium 50 mg PO HS 09/05/17 09/05/17 Rosuvastatin [Crestor] 10 mg PO HS 09/05/17 09/05/17 Allergies Allergy/AdvReac Type Severity Reaction Status Date / Time morphine AdvReac PASSES OUT Verified 09/05/17 11:30 nitroglycerin AdvReac PASSES OUT Verified 09/05/17 11:30 Sulfa (Sulfonamide AdvReac Itching Verified 09/05/17 11:30 Antibiotics) Review of Systems ROS Statement: Those systems with pertinent positive or pertinent negative responses have been documented in the HPI. ROS Other: All systems not noted in ROS Statement are negative. Constitutional: Denies: fever Eyes: Denies: eye pain ENT: Denies: ear pain Respiratory: Denies: cough Cardiovascular: Denies: chest pain Endocrine: Denies: fatigue Gastrointestinal: Denies: abdominal pain Genitourinary: Denies: dysuria Musculoskeletal: Denies: back pain Skin: Denies: rash Neurological: Denies: headache, weakness, numbness, paresthesias Past Medical History Past Medical History: Coronary Artery Disease (CAD), Diabetes Mellitus, Deep Vein Thrombosis (DVT), GERD/Reflux, Hyperlipidemia, Hypertension, Osteoarthritis (OA) Additional Past Medical History / Comment(s): IDDM type II with diabetic neuropathy, narcolepsy, DVTs L lower extremity, vertigo occasionally, PAD, constipation, lumbar pain with bilateral sciatica, anemia, pneumothorax when pt was in her 20s with chest tube. History of Any Multi-Drug Resistant Organisms: None Reported Past Surgical History: Appendectomy, Cholecystectomy, Heart Catheterization With Stent, Hysterectomy, Tubal Ligation Additional Past Surgical History / Comment(s): PCI/stent, ectopic pregnancies that led to eventual total hysterectomy, EGD, colonoscopy, L breast biopsy- benign, bilateral carpal tunnel releases, bilateral eyes laser surgery/lens. Past Anesthesia/Blood Transfusion Reactions: Postoperative Nausea & Vomiting ( PONV) Date of Last Stent Placement:: Past Psychological History: No Psychological Hx Reported Smoking Status: Former smoker Past Alcohol Use History: None Reported Past Drug Use History: None Reported - Past Family History Mother Family Medical History: Hypertension, Seizure Disorder Additional Family Medical History / Comment(s): Mother at age 75 from seizure myocardial infarction. Father Family Medical History: Renal Disease Additional Family Medical History / Comment(s): Father at age 58 from acute renal failure and he was an alcoholic. Son(s) Family Medical History: No Reported History Additional Family Medical History / Comment(s): Patient has 2 sons with no major medical problems. Sister(s) Family Medical History: Cancer, Diabetes Mellitus, Hypertension Additional Family Medical History / Comment(s): Patient had 3 sisters, 1 is after 2 living sisters have hypertension and diabetes. General Exam Limitations: no limitations General appearance: alert, in no apparent distress Head exam: Present: atraumatic Eye exam: Present: normal appearance, PERRL ENT exam: Present: normal oropharynx Neck exam: Present: normal inspection. Absent: tenderness Respiratory exam: Present: normal lung sounds bilaterally Cardiovascular Exam: Present: regular rate, normal rhythm GI/Abdominal exam: Present: soft. Absent: tenderness Extremities exam: Present: normal inspection Neurological exam: Present: alert, oriented X3, CN II-XII intact. Absent: motor sensory deficit Expanded Neurological exam: Present: protecting the airway Patient oriented to: Present: person, place, time Speech: Present: fluid speech Cranial nerves: EOM's Intact: Normal Motor strength exam: RUE: 5, LUE: 5, RLE: 5, LLE: 5 Eye Response: (4) open spontaneously Motor Response: (6) obeys commands Verbal Response: (5) oriented Psychiatric exam: Present: normal affect, normal mood Skin exam: Present: normal color Course Vital Signs 09/05/17 09/05/17 10:30 11:36 Temperature 97 F L Pulse Rate 71 70 Respiratory 18 16 Rate Blood Pressure 203/100 159/75 O2 Sat by Pulse 98 100 Oximetry EKG Findings - EKG Comments: EKG Findings:: Normal sinus rhythm 67. LA 148. QRS 100. QT 422. QTC 445. Left axis. Incomplete right bundle-branch block. Inferior T wave inversion with downward QRS. Medical Decision Making - Medical Decision Making Patient reevaluated and remains alert and appropriate. Blood sugar remained stable. Blood pressure has improved. Patient requesting discharge. Patient updated on need for close follow-up. - Lab Data Lab Results 09/05/17 09/05/17 Range/Units 10:39 11:04 POC Glucose (mg/dL) 74 L 97 (75-99) mg/dL POC Glu Insole Buffer Marixa Chong Joanna Disposition Clinical Impression: Hypoglycemia Disposition: HOME SELF-CARE Condition: Stable Instructions: Hypoglycemia in a Person with Diabetes (ED) Additional Instructions: Please follow-up with primary care physician in the next day or 2 for recheck. 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 Return for uncontrolled blood sugar, change in mental status, worsening symptoms or other concerns. Is patient prescribed a controlled substance at d/c from ED?: No Referrals: Mary Heath MD [Primary Care Provider] - 1-2 days Time of Disposition: 11:56
[2017-09-05 11:18] LABS: Glucose,Whole Blood 97 mg/dL (75-99)
[2017-09-05 11:37] VITALS: BP 159/75; PULSE 70; RESP 16
[2017-09-05 12:32] LABS: Glucose,Whole Blood 182 mg/dL (75-99)
== END 2017-09-05 12:15 | disposition home or self-care (01) ==
LOC: EC 10:24
DX: E11.649 Type 2 diabetes mellitus with hypoglycemia without coma (principal); E11.40 Type 2 diabetes mellitus with diabetic neuropathy, unspecified; I25.10 Atherosclerotic heart disease of native coronary artery without angina pectoris; K21.9 Gastro-esophageal reflux disease without esophagitis; E78.5 Hyperlipidemia, unspecified; I10 Essential (primary) hypertension; Z87.891 Personal history of nicotine dependence; Z79.82 Long term (current) use of aspirin; Z79.4 Long term (current) use of insulin; Z79.899 Other long term (current) drug therapy; Z88.2 Allergy status to sulfonamides; Z88.5 Allergy status to narcotic agent; Z88.8 Allergy status to other drugs, medicaments and biological substances; Z95.1 Presence of aortocoronary bypass graft; Z83.3 Family history of diabetes mellitus
CPT/HCPCS: 36415; 99285

== ENCOUNTER 2018-09-12 07:43 | Day surgery (SDC) | payer MEDICARE, OTHER ==
[2018-09-09 11:06] VITALS: BMI 20.8
[~2018-09-12 07:43] MED LIST: LACTATED RINGERS 1,000 ML IV SCH
[2018-09-12 08:10] VITALS: TEMP 97.6
[2018-09-12 08:16] LABS: Glucose,Whole Blood 154 mg/dL (75-99)
[2018-09-12] MEDS ORDERED: LIDOCAINE 1% 20 ML VIAL (10MG/ML) FOR IV START INTRADERMA ONE (08:16)
[2018-09-12] MEDS ORDERED: LABETALOL 5 MG/ML VIAL MDV IVP ONE (08:20)
[2018-09-12] MEDS ORDERED: PROPOFOL 10 MG/ML 20 ML VIAL IV ONE (08:22)
--- NOTE | 2018-09-12 09:14 | P.PCN ---
Date of Procedure: 09/12/18 Procedure(s) Performed: BRIEF HISTORY: Patient is a 68-year-old pleasant female scheduled for an elective colonoscopy as a part of evaluation of change in bowel habits for the last several years duration. PROCEDURE PERFORMED: Colonoscopy. PREOPERATIVE DIAGNOSIS: Change in bowel habits IV sedation per Anesthesia. PROCEDURE: After informed consent was obtained, the patient, was brought into the endoscopy unit. IV sedation was administered by Anesthesia under continuous monitoring. Digital rectal examination was normal. Initially the Olympus CF-160 flexible video colonoscope was then inserted in the rectum, gradually advanced into the cecum without any difficulty. Careful examination was performed as the scope was gradually being withdrawn. Ileocecal valve and the appendiceal orifice were visualized and appeared normal. Prep was excellent. Mucosa of the cecum, ascending colon, transverse colon, descending colon, sigmoid colon, and rectum appeared normal. Retroflexion was performed in the rectum and no lesions were seen. The patient tolerated the procedure well. IMPRESSION: Normal-appearing colon from rectum to cecum with no evidence of colorectal neoplasia. RECOMMENDATIONS: Findings of this examination were discussed with the patient well as her family. She was advised to have a repeat screening colonoscopy in 10 years.
[2018-09-12 09:19] VITALS: BP 184/93; PULSE 80; RESP 18
[2018-09-12 09:23] LABS: Glucose,Whole Blood 157 mg/dL (75-99)
== END 2018-09-12 09:36 | disposition home or self-care (01) ==
LOC: ORWHC2ENDO 07:43
PROVIDERS: ATTEND Internal Medicine Gastroenterology
DX: R19.4 Change in bowel habit (principal); I25.10 Atherosclerotic heart disease of native coronary artery without angina pectoris; E78.5 Hyperlipidemia, unspecified; I10 Essential (primary) hypertension; E11.9 Type 2 diabetes mellitus without complications; K21.9 Gastro-esophageal reflux disease without esophagitis; Z95.5 Presence of coronary angioplasty implant and graft; Z86.718 Personal history of other venous thrombosis and embolism; Z87.891 Personal history of nicotine dependence; Z79.82 Long term (current) use of aspirin; Z79.4 Long term (current) use of insulin; Z79.899 Other long term (current) drug therapy; Z88.5 Allergy status to narcotic agent; Z88.8 Allergy status to other drugs, medicaments and biological substances; Z88.2 Allergy status to sulfonamides
CPT/HCPCS: 45378; J2704

== ENCOUNTER 2019-01-29 16:04 | Inpatient (IN) | payer MEDICARE, OTHER ==
[2019-01-29] MEDS ORDERED: SODIUM CHLORIDE 0.9% 1,000 ML IV ONE ×2 (16:25→17:23)
--- NOTE | 2019-01-29 16:28 | ED ---
Recheck HPI - General Chief Complaint: Recheck/Abnormal Lab/Rx Stated Complaint: High Blood Sugar Time Seen by Provider: 01/29/19 16:09 Source: patient Mode of arrival: wheelchair Limitations: no limitations - History of Present Illness Initial Comments: 69-year-old female history of hypertension and type 2 diabetes insulin-dependent presents emergency department today for generalized weakness and vomiting today and elevated blood glucose readings. Patient states that she has had elevated blood glucose readings felt weak all over and has had vomiting when attempting to eat today. patient's family member who is a nurse and at bedside states the patient's glucose to 3 days has been over 600 she gave 12 units of insulin at 1 PM which did not seem to help lower the readings. She denies any localizing symptoms such as chest pain shortness of breath abdominal pain, fevers, cough, congestions, headache, diarrhea or recent antibiotic use. Patient appears fatigued on arrival. BP on lower aspect of normal. - Related Data Home Medications Medication Instructions Recorded Confirmed Aspirin 81 mg PO HS 01/20/16 01/29/19 Metoprolol Tartrate [Lopressor] 25 mg PO BID 04/07/17 01/29/19 Insulin Aspart [NovoLOG] 0 units SQ ACHS PRN 04/08/17 01/29/19 Insulin Glargine [Lantus] 12 unit SQ HS PRN 09/05/17 01/29/19 Losartan Potassium 50 mg PO BID 09/05/17 01/29/19 Chlorthalidone [Hygroton] 25 mg PO DAILY 09/09/18 01/29/19 Cyanocobalamin (Vitamin B-12) 5,000 mcg PO DAILY 09/09/18 01/29/19 [Vitamin B-12] Magnesium 800 mg PO DAILY 09/09/18 01/29/19 Multivit with Calcium,Iron,Min 1 each PO DAILY 09/09/18 01/29/19 [Women's Multivitamin] Cholecalciferol [Vitamin D3 (25 1,000 unit PO DAILY 01/29/19 01/29/19 Mcg = 1000 Iu)] Allergies Allergy/AdvReac Type Severity Reaction Status Date / Time morphine AdvReac PASSES OUT Verified 01/29/19 18:11 nitroglycerin AdvReac PASSES OUT Verified 01/29/19 18:11 Sulfa (Sulfonamide AdvReac Itching Verified 01/29/19 18:11 Antibiotics) Review of Systems ROS Statement: Those systems with pertinent positive or pertinent negative responses have been documented in the HPI. ROS Other: All systems not noted in ROS Statement are negative. Past Medical History Past Medical History: Coronary Artery Disease (CAD), Diabetes Mellitus, Deep Vein Thrombosis (DVT), GERD/Reflux, Hyperlipidemia, Hypertension, Osteoarthritis (OA) Additional Past Medical History / Comment(s): IDDM type II with diabetic neuropathy, narcolepsy, DVTs L lower extremity, vertigo occasionally, PAD, pn eumothorax when pt was in her 20s with chest tube. History of Any Multi-Drug Resistant Organisms: None Reported Past Surgical History: Appendectomy, Cholecystectomy, Heart Catheterization With Stent, Hysterectomy, Tubal Ligation Additional Past Surgical History / Comment(s): PCI/stent, ectopic pregnancies , EGD, colonoscopy, L breast biopsy-benign, carpal tunnel release, bilateral eyes laser surgery/lens. Past Anesthesia/Blood Transfusion Reactions: Previous Problems w/ Anesthesia, Postoperative Nausea & Vomiting (PONV) Additional Past Anesthesia/Blood Transfusion Reaction / Comment(s): PT STATES HER AND HER FAMILY HAVE DIFFICULTY WAKING UP Date of Last Stent Placement:: Past Psychological History: No Psychological Hx Reported Smoking Status: Former smoker Past Alcohol Use History: None Reported Past Drug Use History: None Reported - Past Family History Mother Family Medical History: Hypertension, Seizure Disorder Additional Family Medical History / Comment(s): Mother at age 75 from seizure myocardial infarction. Father Family Medical History: Renal Disease Additional Family Medical History / Comment(s): Father at age 58 from acute renal failure and he was an alcoholic. Son(s) Family Medical History: No Reported History Additional Family Medical History / Comment(s): Patient has 2 sons with no major medical problems. General Exam - General Exam Comments Initial Comments: General: The patient is awake and alert, appears unwell Eye: +3 mm pupils are equal, round and reactive to light, extra-ocular movements are intact. No nystagmus. There is normal conjunctiva bilaterally. No signs of icterus. Ears, nose, mouth and throat: There are moist mucous membranes and no oral lesions. Neck: The neck is supple, there is no tenderness or JVD. Cardiovascular: There is a regular rate and rhythm. No murmur, rub or gallop is appreciated. Respiratory: Lungs are clear to auscultation, respirations are non-labored, breath sounds are equal. No wheezes, stridor, rales, or rhonchi. Gastrointestinal: Soft, non-distended, non-tender abdomen without masses or organomegaly noted. There is no rebound or guarding present. Musculoskeletal: Normal ROM, no tenderness. Strength 5/5. Sensation intact. Radila pulses equal bilaterally 2+. Neurological: A&O x 3. CN II-XII intact grossly, There are no obvious motor or sensory deficits. Coordination appears grossly intact. Speech is normal. Skin: Skin is warm and dry and no rashes or lesions are noted. No LE edema. Psychiatric: Cooperative, appropriate mood & affect, normal judgment. Limitations: no limitations Course Vital Signs 01/29/19 01/29/19 01/29/19 16:05 18:11 18:20 Temperature 97.8 F Pulse Rate 98 83 85 Respiratory 20 20 16 Rate Blood Pressure 96/56 119/57 119/57 O2 Sat by Pulse 99 98 Oximetry 01/29/19 01/29/19 18:30 18:40 Temperature Pulse Rate 82 80 Respiratory 16 16 Rate Blood Pressure 119/57 113/57 O2 Sat by Pulse Oximetry Medical Decision Making - Medical Decision Making 69-year-old female with history of diabetes which patient's described as mixed type presents emergency department today for chief complaint of fatigue vomiting after eating. Patient has had 3 days of elevated blood glucose over 600. Patient insulin-dependent. Patient found to have elevated anion gap 863 blood glucose despite being administered 12 units of subcu insulin at1PM. Patient denies any chest pain shortness of breath. Patient appears to be in DKA> Given insulin bolus IV. Given IV hydration. Patient electrolytes stable. Kidney function lightly increased from baseline appears dry on exam. patient EKG revealed some concerning T waves/ST segments, EKG was sent to hand etcher helper Dr. Costa who reviewed the EKG speaking with attending provider who states he feels is most likely early repolarization. Initial troponin negative. At this time we'll admit patient on telemetry and she will be switched to D5 when blood glucose under <300. Patient nad family agreeable to care plan and admission. Case discussed at length with Dr. Yañez who is agreeable to care plan. 40 minutes of critical care time was spent on patient including evaluations, reevaluations, speaking with providers, and reviewing studies - Lab Data Result diagrams: 01/29/19 16:37 01/29/19 16:37 Lab Results 01/29/19 01/29/19 01/29/19 Range/Units 16:37 16:37 16:37 WBC 11.4 H (3.8-10.6) k/uL RBC 4.16 (3.80-5.40) m/uL Hgb 11.8 (11.4-16.0) gm/dL Hct 40.3 (34.0-46.0) % MCV 96.9 (80.0-100.0) fL MCH 28.4 (25.0-35.0) pg MCHC 29.3 L (31.0-37.0) g/dL RDW 13.7 (11.5-15.5) % Plt Count 253 (150-450) k/uL Neutrophils % 84 % Lymphocytes % 11 % Monocytes % 5 % Eosinophils % 0 % Basophils % 0 % Neutrophils # 9.5 H (1.3-7.7) k/uL Lymphocytes # 1.2 (1.0-4.8) k/uL Monocytes # 0.5 (0-1.0) k/uL Eosinophils # 0.1 (0-0.7) k/uL Basophils # 0.1 (0-0.2) k/uL Hypochromasia Marked VBG pH 7.27 L (7.31-7.41) VBG pCO2 33 L (37-51) mmHg VBG HCO3 15 L (24-28) mmol/L Sodium 133 L (137-145) mmol/L Potassium 4.6 (3.5-5.1) mmol/L Chloride 89 L (98-107) mmol/L Carbon Dioxide 13 L (22-30) mmol/L Anion Gap 31 mmol/L BUN 47 H (7-17) mg/dL Creatinine 1.81 H (0.52-1.04) mg/dL Est GFR (CKD-EPI)AfAm 32 (>60 ml/min/1.73 sqM) Est GFR (CKD-EPI)NonAf 28 (>60 ml/min/1.73 sqM) Glucose 863 H* (74-99) mg/dL POC Glucose (mg/dL) (75-99) mg/dL POC Glu [employer] ID Calcium 9.6 (8.4-10.2) mg/dL Phosphorus 8.2 H (2.5-4.5) mg/dL Magnesium 2.4 H (1.6-2.3) mg/dL Total Bilirubin 0.7 (0.2-1.3) mg/dL AST 32 (14-36) U/L ALT 22 (4-34) U/L Alkaline Phosphatase 124 (38-126) U/L Troponin I (0.000-0.034) ng/mL Total Protein 6.5 (6.3-8.2) g/dL Albumin 4.0 (3.5-5.0) g/dL Lipase 51 (23-300) U/L Acetone, Qual Positive (Negative) 01/29/19 01/29/19 Range/Units 16:37 17:00 WBC (3.8-10.6) k/uL RBC (3.80-5.40) m/uL Hgb (11.4-16.0) gm/dL Hct (34.0-46.0) % MCV (80.0-100.0) fL MCH (25.0-35.0) pg MCHC (31.0-37.0) g/dL RDW (11.5-15.5) % Plt Count (150-450) k/uL Neutrophils % % Lymphocytes % % Monocytes % % Eosinophils % % Basophils % % Neutrophils # (1.3-7.7) k/uL Lymphocytes # (1.0-4.8) k/uL Monocytes # (0-1.0) k/uL Eosinophils # (0-0.7) k/uL Basophils # (0-0.2) k/uL Hypochromasia VBG pH (7.31-7.41) VBG pCO2 (37-51) mmHg VBG HCO3 (24-28) mmol/L Sodium (137-145) mmol/L Potassium (3.5-5.1) mmol/L Chloride (98-107) mmol/L Carbon Dioxide (22-30) mmol/L Anion Gap mmol/L BUN (7-17) mg/dL Creatinine (0.52-1.04) mg/dL Est GFR (CKD-EPI)AfAm (>60 ml/min/1.73 sqM) Est GFR (CKD-EPI)NonAf (>60 ml/min/1.73 sqM) Glucose (74-99) mg/dL POC Glucose (mg/dL) >600 H (75-99) mg/dL POC Glu [employer] ID Stefanie Freeman Calcium (8.4-10.2) mg/dL Phosphorus (2.5-4.5) mg/dL Magnesium (1.6-2.3) mg/dL Total Bilirubin (0.2-1.3) mg/dL AST (14-36) U/L ALT (4-34) U/L Alkaline Phosphatase (38-126) U/L Troponin I <0.012 (0.000-0.034) ng/mL Total Protein (6.3-8.2) g/dL Albumin (3.5-5.0) g/dL Lipase (23-300) U/L Acetone, Qual (Negative) Disposition Clinical Impression: DKA (diabetic ketoacidoses) Disposition: ADMITTED IP TO THIS [facility] Condition: Stable Is patient prescribed a controlled substance at d/c from ED?: No Time of Disposition: 18:44 Decision to Admit Reason: Admit from EC Decision Date: 01/29/19 Decision Time: 17:45
[2019-01-29 16:47] LABS: VBG PH 7.27 (7.31-7.41)
[2019-01-29 16:49] LABS: Basophils # (A) 0.1 k/uL (0-0.2); Basophils % (A) 0 %; Eosinophils # (A) 0.1 k/uL (0-0.7); Eosinophils % (A) 0 %; HCT 40.3 % (34.0-46.0); HGB 11.8 gm/dL (11.4-16.0); Hypochromasia Marked; Lymphocytes # (A) 1.2 k/uL (1.0-4.8); Lymphocytes % (A) 11 %; MCH 28.4 pg (25.0-35.0); MCHC 29.3 g/dL (31.0-37.0); MCV 96.9 fL (80.0-100.0); Mean Platelet Volume 10.3; Monocytes # (A) 0.5 k/uL (0-1.0); Monocytes % (A) 5 %; Neutrophils # (A) 9.5 k/uL (1.3-7.7); Neutrophils % (A) 84 %; Platelet Count 253 k/uL (150-450); RBC 4.16 m/uL (3.80-5.40); RDW 13.7 % (11.5-15.5); WBC 11.4 k/uL (3.8-10.6)
[2019-01-29 16:57] LABS: ALT 22 U/L (4-34); AST 32 U/L (14-36); African American GFR (CKD) 32 (>60 ml/min/1.73 sqM); Alkaline Phosphatase 124 U/L (38-126); Anion Gap 31 mmol/L; Blood Urea Nitrogen 47 mg/dL (7-17); Calcium 9.6 mg/dL (8.4-10.2); Carbon Dioxide 13 mmol/L (22-30); Chloride 89 mmol/L (98-107); Magnesium 2.4 mg/dL (1.6-2.3); Non-African American GFR(CKD) 28 (>60 ml/min/1.73 sqM); Phosphorus 8.2 mg/dL (2.5-4.5); Potassium 4.6 mmol/L (3.5-5.1); Sodium 133 mmol/L (137-145); Total Bilirubin 0.7 mg/dL (0.2-1.3); Total Protein 6.5 g/dL (6.3-8.2)
[2019-01-29 17:05] LABS: Glucose 863 mg/dL (74-99)
[2019-01-29] MEDS ORDERED: INSULIN REGULAR 100 UNIT/ML VIAL IV ONE (17:06)
[2019-01-29 17:07] LABS: Glucose,Whole Blood >600 mg/dL (75-99)
[2019-01-29] MEDS ORDERED: INSULIN REGULAR BOLUS (FROM DRIP BAG) IV ONE (17:13)
--- NOTE | 2019-01-29 18:05 | XR ---
EXAMINATION TYPE: XR KUB portable DATE OF EXAM: 01/29/2019 COMPARISON: NONE HISTORY: Vomiting TECHNIQUE: Single view supine FINDINGS: There is no sign of intestinal obstruction or pneumoperitoneum. Fecal pattern is normal. Th ere are no pathologic calcifications over the kidneys. There is no evidence of a mass. Lung bases are clear. IMPRESSION: Nonacute abdomen.
[2019-01-29] MEDS: SODIUM CHLORIDE 0.9% 1,000 ML IV SCH (18:06)
--- NOTE | 2019-01-29 18:07 | XR ---
EXAMINATION TYPE: XR chest 2V DATE OF EXAM: 01/29/2019 COMPARISON: 04/07/2017 HISTORY: Vomiting. Hyperglycemia. TECHNIQUE: 2 views FINDINGS: Heart is normal. Lungs are clear of consolidation. There is no heart failure. There are no hilar masses. Thoracic aorta is atheromatous. There are chest leads. Bony thorax is intact. IMPRESSION: No active cardiopulmonary disease. No change.
[2019-01-29] MEDS: INSULIN REGULAR 100 UNIT in SODIUM CHLORIDE 0.9% 100 ML IV SCH (18:41)
[2019-01-29 19:32] LABS: Glucose,Whole Blood >600 mg/dL (75-99)
[2019-01-29 20:51] LABS: Glucose,Whole Blood >600 mg/dL (75-99)
[2019-01-29 20:51] LABS: Glucose,Whole Blood >600 mg/dL (75-99)
[2019-01-29 21:32] LABS: Phosphorus 4.5 mg/dL (2.5-4.5)
[2019-01-29 22:41] LABS: Glucose,Whole Blood 558 mg/dL (75-99)
[2019-01-29 23:55] LABS: Glucose,Whole Blood 541 mg/dL (75-99)
[2019-01-30 01:40] LABS: Glucose,Whole Blood 458 mg/dL (75-99)
[2019-01-30 01:57] LABS: Phosphorus 3.3 mg/dL (2.5-4.5); Potassium 3.6 mmol/L (3.5-5.1)
[2019-01-30 03:22] LABS: Glucose,Whole Blood 411 mg/dL (75-99)
[2019-01-30 04:36] LABS: Glucose,Whole Blood 316 mg/dL (75-99)
[2019-01-30 05:45] LABS: Glucose,Whole Blood 357 mg/dL (75-99)
[2019-01-30 06:03] LABS: Appearance,Urine Clear (Clear); Bilirubin,Urine Negative (Negative); Blood,Urine Negative (Negative); Color,Urine Yellow; Glucose,Urine (UA) 4+ (Negative); Ketones,Urine 1+ (Negative); Leukocyte Esterase,Urine Negative (Negative); Nitrite,Urine Negative (Negative); Protein,Urine Negative (Negative); Specific Gravity,Urine 1.021 (1.001-1.035); Urobilinogen,Urine <2.0 mg/dL (<2.0)
[2019-01-30 06:50] LABS: Glucose,Whole Blood 336 mg/dL (75-99)
[2019-01-30] MEDS: SODIUM CHLORIDE 0.9% 1,000 ML IV SCH ×3 (08:07→08:50)
[2019-01-30 08:11] LABS: Glucose,Whole Blood 259 mg/dL (75-99)
[2019-01-30 08:50] LABS: Glucose,Whole Blood 185 mg/dL (75-99)
[2019-01-30] MEDS ORDERED: D5-0.45% NACL WITH KCL 20MEQ/L 1,000 ML IV SCH (09:00)
[2019-01-30 09:53] LABS: Glucose,Whole Blood 176 mg/dL (75-99)
[2019-01-30] MEDS ORDERED: amLODIPine 5 MG TAB PO SCH (10:45)
[2019-01-30] MEDS ORDERED: ATORVASTATIN 20 MG TAB PO SCH (10:45)
[2019-01-30] MEDS ORDERED: INSULIN DETEMIR (LEVEMIR) 100 UNIT/ML SYR SQ SCH (11:00)
[2019-01-30] MEDS: INSULIN REGULAR 100 UNIT in SODIUM CHLORIDE 0.9% 100 ML IV SCH (11:23)
[2019-01-30 11:55] LABS: Glucose,Whole Blood 154 mg/dL (75-99)
[2019-01-30] MEDS: INSULIN ASPART (NovoLOG) 100 UNIT/ML VIAL SQ SCH ×2 (12:13→17:26)
[2019-01-30 12:20] LABS: Glucose,Whole Blood 191 mg/dL (75-99)
[2019-01-30] MEDS: BENZOCAINE/MENTHOL LOZENG 1 EACH LOZENGE MUCOUS MEM PRN ×2 (13:51→20:19)
[2019-01-30] MEDS: METOPROLOL TARTRATE 25 MG TAB PO SCH ×2 (13:57→17:25)
--- NOTE | 2019-01-30 16:31 | P.HPIM ---
History of Present Illness H&P Date: 01/30/19 (H&P and discharge summary) H&P and discharge summary This is a 69-year-old -[place] female patient of Dr. Heath with past medical history of diabetes mellitus type 1 insulin-dependent with diabetic polyneuropathy, hypertension with hypertensive cardiovascular disease and left ventricular hypertrophy, coronary artery disease status post PCI in February 2010, hyperlipidemia, DVT, chronic back pain. patient comes in with elevated blood sugar. According to the patient she had too much grapes yesterday and was feeling WEAK all day. She did had 3 episode of vomiting today and patient was brought to the ER for evaluation.the constipation she has been taking her i nsulin appropriately. On evaluation in the vital patient had temperature 97.8 blood pressure 96/56 which improved with resuscitation.patient had a blood sugar of 863 on admission. She had an anion gapof 31 on admission. Venous blood gas suggest a pH of 7.27 CO2 33 bicarb 15. B UN was 47 creatinine 1.81 which is patient's baseline.she was started on DKA protocolreceived 2 L of normal saline. 6 units of regular insulin one dose of ceftriaxone. She did have some concerning T wave ST changes. Dr. Wallace reviewed the EKG and suggested early repolarization. Patient was switched to D5 and numbness after the glucose reduced to less than 300.on evaluation this morning patient feels fine denies any nausea or vomiting. And I'm Disclosed patient has tolerated oral diet patient was also given a dose of Levemir 12 units with no symptoms. Patient will be discharged today Review of Systems Constitutional: Denies chills, Denies fever, Denies lethargy, Denies malaise, Denies poor appetite, Denies weakness, Denies weight loss Eyes: denies decreased vision, denies diplopia, denies discharge, denies pain Ears: deny: decreased hearing Ears, nose, mouth and throat: Denies dental pain, Denies headache, Denies nasal discharge, Denies nose pain Cardiovascular: Denies chest pain, Denies decreased exercise tolerance, Denies edema, Denies high blood pressure, Denies irregular heart beat, Denies palpitations, Denies paroxysmal nocturnal dyspnea, Denies rapid heart beat, Denies shortness of breath Respiratory: Denies congestion, Denies cough, Denies cough with sputum, Denies dyspnea, Denies home oxygen, Denies wheezing Gastrointestinal: Denies abdominal pain, Denies change in bowel habits, Denies coffee ground emesis, Denies early satiety, Denies excessive gas, Denies heartburn, Denies hematemesis, Denies hematochezia, Denies loss of appetite, endorses nausea and vomiting resolved Genitourinary: Denies dysuria, Denies flank pain, Denies kidney stones, Denies menorrhagia, Denies urgency, Denies urinary frequency Musculoskeletal: Denies gait dysfunction, Denies limitation of motion, Denies morning stiffness, Denies muscle cramps Integumentary: Denies rash, Denies wounds, Denies brittle nails, Denies change in hair/nails, Denies darkening of skin Neurological: Denies balance difficulties, Denies change in speech, Denies double vision, Denies gait dysfunction, Denies loss of vision, Denies motor disturbance, Denies numbness, Denies paralysis, Denies paresthesias, Denies seizures Psychiatric: Denies anxiety, Denies depression Endocrine: Denies excessive sweating, Denies excessive thirst, Denies high blood sugars, Denies palpitations Hematologic/Lymphatic: Denies easy bruising, Denies lymphadenopathy Past Medical History Past Medical History: Coronary Artery Disease (CAD), Diabetes Mellitus, Deep Vein Thrombosis (DVT), GERD/Reflux, Hyperlipidemia, Hypertension, Osteoarthritis (OA), Vascular Disorder Additional Past Medical History / Comment(s): IDDM type II with diabetic neuropathy, narcolepsy, DVTs L lower extremity, vertigo occasionally, low back pian with bilateral sciatica, PAD, pneumothorax when pt was in her 20s with chest tube, constipation, bronchitis. History of Any Multi-Drug Resistant Organisms: None Reported Past Surgical History: Appendectomy, Cholecystectomy, Heart Catheterization With Stent, Hysterectomy, Tubal Ligation Additional Past Surgical History / Comment(s): PCI/stent, ectopic pregnancies with eventual total hysterectomy, EGD, colonoscopy, L breast biopsy-benign, bilateral carpal tunnel release, bilateral eyes laser surgery/lens. Past Anesthesia/Blood Transfusion Reactions: Previous Problems w/ Anesthesia, Postoperative Nausea & Vomiting (PONV) Additional Past Anesthesia/Blood Transfusion Reaction / Comment(s): PT STATES HER AND HER FAMILY HAVE DIFFICULTY WAKING UP Date of Last Stent Placement:: Smoking Status: Former smoker - Past Family History Mother Family Medical History: Hypertension, Seizure Disorder Additional Family Medical History / Comment(s): Mother at age 75 Father Family Medical History: Renal Disease Additional Family Medical History / Comment(s): Father at age 58 from acute renal failure and he was an alcoholic. Son(s) Family Medical History: No Reported History Additional Family Medical History / Comment(s): Patient has 2 sons with no major medical problems. Medications and Allergies Home Medications Medication Instructions Recorded Confirmed Type Aspirin 81 mg PO HS 01/20/16 01/30/19 History Metoprolol Tartrate [Lopressor] 25 mg PO BID 04/07/17 01/30/19 History Insulin Aspart [NovoLOG] See Protocol SQ ACHS PRN 04/08/17 01/30/19 History Insulin Glargine [Lantus] 12 unit SQ HS PRN 09/05/17 01/30/19 History Losartan Potassium 50 mg PO BID 09/05/17 01/30/19 History Chlorthalidone [Hygroton] 25 mg PO DAILY 09/09/18 01/30/19 History Multivit with Calcium,Iron,Min 1 tab PO DAILY 09/09/18 01/30/19 History [Women's Multivitamin] Cholecalciferol [Vitamin D3 (25 1,000 unit PO DAILY 01/29/19 01/29/19 History Mcg = 1000 Iu)] Cyanocobalamin [Vitamin B-12] 500 mcg PO DAILY 01/30/19 01/30/19 History INSULIN ASPART (NovoLOG) [NovoLOG 6 unit SQ AC-TID 01/30/19 01/30/19 History (formulary)] Magnesium Oxide [Mag-Ox] 800 mg PO DAILY 01/30/19 01/30/19 History Mirtazapine 7.5 mg PO W/SUPPER 01/30/19 01/30/19 History Montelukast Sodium [Singulair] 10 mg PO HS 01/30/19 01/30/19 History Rosuvastatin [Crestor] 10 mg PO DAILY 01/30/19 01/30/19 History amLODIPine [Norvasc] 5 mg PO DAILY 01/30/19 01/30/19 History Allergies Allergy/AdvReac Type Severity Reaction Status Date / Time morphine AdvReac PASSES OUT Verified 01/29/19 18:11 nitroglycerin AdvReac PASSES OUT Verified 01/29/19 18:11 Sulfa (Sulfonamide AdvReac Itching Verified 01/29/19 18:11 Antibiotics) Physical Exam Vitals: Vital Signs Temp Pulse Pulse Resp BP BP Pulse Ox 01/30/19 12:30 98.2 F 87 15 115/64 97 01/30/19 08:00 97.2 F L 82 16 106/63 100 01/30/19 04:00 84 13 155/72 01/30/19 03:40 78 16 155/72 96 01/30/19 02:00 82 13 136/70 98 01/30/19 01:00 87 9 L 96/52 97 01/30/19 00:00 84 10 L 118/57 97 01/29/19 23:00 86 13 96/47 98 01/29/19 21:00 86 13 126/69 98 01/29/19 20:00 84 11 L 93/41 98 01/29/19 19:00 76 12 113/57 01/29/19 18:40 80 16 113/57 01/29/19 18:30 82 16 119/57 01/29/19 18:20 85 16 119/57 01/29/19 18:11 83 20 119/57 98 Intake and Output 01/30/19 01/30/19 01/30/19 06:59 14:59 22:59 Intake Total 386.831 Balance 386.831 Intake: Intake, IV Titration 386.831 Amount D5-0.45% NaCl with KCl 300 20Meq/l 1,000 ml @ 150 mls/hr IV .Q6H40M [facility] Rx# :[id number] Insulin Regular 100 unit 86.831 In Sodium Chloride 0.9% 100 ml @ 0.1 UNITS/KG/HR 6.093 mls/hr IV .[id number] [facility] Rx#:[id number] Other: Weight 60.328 kg - Constitutional General appearance: cooperative, no acute distress, obese - EENT Eyes: anicteric sclerae, PERRLA, normal appearance ENT: hearing grossly normal - Neck Neck: no lymphadenopathy, normal ROM, no other, no rigidity, no stridor, no thyromegaly - Respiratory Respiratory: bilateral: CTA, negative: diminished, dullness, rales, rhonchi - Cardiovascular Rhythm: regular Heart sounds: normal: S1, S2 Abnormal Heart Sounds: no systolic murmur, no diastolic murmur, no rub, no S3 Gallop, no S4 Gallop, no click, no other - Gastrointestinal General gastrointestinal: normal bowel sounds, softnontender - Integumentary Integumentary: no rash - Neurologic Neurologic: CNII-XII intact - Musculoskeletal Musculoskeletal: gait normal, strength equal bilaterally - Psychiatric Psychiatric: A&O x's 3, appropriate affect Results CBC & Chem 7: 01/29/19 16:37 01/30/19 01:30 Labs: Abnormal Lab Results - Last 24 Hours (Table) 01/29/19 01/29/19 01/29/19 Range/Units 04:30 16:37 16:37 WBC 11.4 H (3.8-10.6) k/uL MCHC 29.3 L (31.0-37.0) g/dL Neutrophils # 9.5 H (1.3-7.7) k/uL VBG pH 7.27 L (7.31-7.41) VBG pCO2 33 L (37-51) mmHg VBG HCO3 15 L (24-28) mmol/L Sodium (137-145) mmol/L Chloride (98-107) mmol/L Carbon Dioxide (22-30) mmol/L BUN (7-17) mg/dL Creatinine (0.52-1.04) mg/dL Glucose (74-99) mg/dL POC Glucose (mg/dL) (75-99) mg/dL Phosphorus (2.5-4.5) mg/dL Magnesium (1.6-2.3) mg/dL Urine Glucose (UA) 4+ H (Negative) Urine Ketones 1+ H (Negative) 01/29/19 01/29/19 01/29/19 Range/Units 16:37 17:00 19:20 WBC (3.8-10.6) k/uL MCHC (31.0-37.0) g/dL Neutrophils # (1.3-7.7) k/uL VBG pH (7.31-7.41) VBG pCO2 (37-51) mmHg VBG HCO3 (24-28) mmol/L Sodium 133 L (137-145) mmol/L Chloride 89 L (98-107) mmol/L Carbon Dioxide 13 L (22-30) mmol/L BUN 47 H (7-17) mg/dL Creatinine 1.81 H (0.52-1.04) mg/dL Glucose 863 H* (74-99) mg/dL POC Glucose (mg/dL) >600 H >600 H (75-99) mg/dL Phosphorus 8.2 H (2.5-4.5) mg/dL Magnesium 2.4 H (1.6-2.3) mg/dL Urine Glucose (UA) (Negative) Urine Ketones (Negative) 01/29/19 01/29/19 01/29/19 Range/Units 20:45 20:47 21:05 WBC (3.8-10.6) k/uL MCHC (31.0-37.0) g/dL Neutrophils # (1.3-7.7) k/uL VBG pH (7.31-7.41) VBG pCO2 (37-51) mmHg VBG HCO3 (24-28) mmol/L Sodium 136 L (137-145) mmol/L Chloride 97 L (98-107) mmol/L Carbon Dioxide 21 L (22-30) mmol/L BUN 47 H (7-17) mg/dL Creatinine 1.64 H (0.52-1.04) mg/dL Glucose 656 H* (74-99) mg/dL POC Glucose (mg/dL) >600 H >600 H (75-99) mg/dL Phosphorus (2.5-4.5) mg/dL Magnesium (1.6-2.3) mg/dL Urine Glucose (UA) (Negative) Urine Ketones (Negative) 01/29/19 01/29/19 01/30/19 Range/Units 22:39 23:54 01:30 WBC (3.8-10.6) k/uL MCHC (31.0-37.0) g/dL Neutrophils # (1.3-7.7) k/uL VBG pH (7.31-7.41) VBG pCO2 (37-51) mmHg VBG HCO3 (24-28) mmol/L Sodium (137-145) mmol/L Chloride (98-107) mmol/L Carbon Dioxide (22-30) mmol/L BUN 50 H (7-17) mg/dL Creatinine 1.57 H (0.52-1.04) mg/dL Glucose 418 H (74-99) mg/dL POC Glucose (mg/dL) 558 H 541 H (75-99) mg/dL Phosphorus (2.5-4.5) mg/dL Magnesium (1.6-2.3) mg/dL Urine Glucose (UA) (Negative) Urine Ketones (Negative) 01/30/19 01/30/19 01/30/19 Range/Units 01:31 03:21 04:31 WBC (3.8-10.6) k/uL MCHC (31.0-37.0) g/dL Neutrophils # (1.3-7.7) k/uL VBG pH (7.31-7.41) VBG pCO2 (37-51) mmHg VBG HCO3 (24-28) mmol/L Sodium (137-145) mmol/L Chloride (98-107) mmol/L Carbon Dioxide (22-30) mmol/L BUN (7-17) mg/dL Creatinine (0.52-1.04) mg/dL Glucose (74-99) mg/dL POC Glucose (mg/dL) 458 H 411 H 316 H (75-99) mg/dL Phosphorus (2.5-4.5) mg/dL Magnesium (1.6-2.3) mg/dL Urine Glucose (UA) (Negative) Urine Ketones (Negative) 01/30/19 01/30/19 01/30/19 Range/Units 05:36 06:42 08:05 WBC (3.8-10.6) k/uL MCHC (31.0-37.0) g/dL Neutrophils # (1.3-7.7) k/uL VBG pH (7.31-7.41) VBG pCO2 (37-51) mmHg VBG HCO3 (24-28) mmol/L Sodium (137-145) mmol/L Chloride (98-107) mmol/L Carbon Dioxide (22-30) mmol/L BUN (7-17) mg/dL Creatinine (0.52-1.04) mg/dL Glucose (74-99) mg/dL POC Glucose (mg/dL) 357 H 336 H 259 H (75-99) mg/dL Phosphorus (2.5-4.5) mg/dL Magnesium (1.6-2.3) mg/dL Urine Glucose (UA) (Negative) Urine Ketones (Negative) 01/30/19 01/30/19 01/30/19 Range/Units 08:48 09:52 11:54 WBC (3.8-10.6) k/uL MCHC (31.0-37.0) g/dL Neutrophils # (1.3-7.7) k/uL VBG pH (7.31-7.41) VBG pCO2 (37-51) mmHg VBG HCO3 (24-28) mmol/L Sodium (137-145) mmol/L Chloride (98-107) mmol/L Carbon Dioxide (22-30) mmol/L BUN (7-17) mg/dL Creatinine (0.52-1.04) mg/dL Glucose (74-99) mg/dL POC Glucose (mg/dL) 185 H 176 H 154 H (75-99) mg/dL Phosphorus (2.5-4.5) mg/dL Magnesium (1.6-2.3) mg/dL Urine Glucose (UA) (Negative) Urine Ketones (Negative) 01/30/19 Range/Units 12:19 WBC (3.8-10.6) k/uL MCHC (31.0-37.0) g/dL Neutrophils # (1.3-7.7) k/uL VBG pH (7.31-7.41) VBG pCO2 (37-51) mmHg VBG HCO3 (24-28) mmol/L Sodium (137-145) mmol/L Chloride (98-107) mmol/L Carbon Dioxide (22-30) mmol/L BUN (7-17) mg/dL Creatinine (0.52-1.04) mg/dL Glucose (74-99) mg/dL POC Glucose (mg/dL) 191 H (75-99) mg/dL Phosphorus (2.5-4.5) mg/dL Magnesium (1.6-2.3) mg/dL Urine Glucose (UA) (Negative) Urine Ketones (Negative) Thrombosis Risk Factor Assmnt - DVT/VTE Prophylaxis DVT/VTE Prophylaxis: Pharmacologic Prophylaxis ordered - Choose All That Apply Any of the Below Risk Factors Present?: Yes Other Risk Factors: Yes Each Risk Factor Represents 2 Points: Age 61-74 years Each Risk Factor Represents 3 Points: Family history of DVT/PE Other congenital or acquired thrombophilia - If yes, enter type in comment: No Thrombosis Risk Factor Assessment Total Risk Factor Score: 5 Thrombosis Risk Factor Assessment Level: High Risk Assessment and Plan Plan: 1. Diabetic ketoacidosis. patient's anion gap closed on admission. His switch to diabetic diet. Patient was able to tolerate diet 12 units of Lantus was given. Insulin drip was discontinued. IV fluids in the form of D5 and S at 1 50 mL/h. Patient switched from insulin drip to Lantus and Humalog. Since taco hira's anion gap closed patient is stable to be discharged 2. Uncontrolled diabetes mellitus type 1. Transition the patient from insulin drip to Lantus 3. Diabetic polyneuropathy. Could not tolerate gabapentin. 4. Hypertension and hypertensive cardiovascular disease. Continue Lopressor 25 mg daily and amlodipine 5 mg orally once every day. 5. Hyperlipidemia. Continue Crestor 20 g orally once every day. 6. CAD status post PCI in 2010. Continue Crestor 20 mg orally once every day, aspirin 81 mg orally once every day. 7. GI prophylaxis. Protonix 40 mg orally once every day. 8. DVT prophylaxis. heparin every 12 Discharge plan: stable to be discharged today
[2019-01-30 16:32] LABS: Glucose,Whole Blood 292 mg/dL (75-99)
[2019-01-30] MEDS ORDERED: MIRTAZAPINE 15 MG TAB PO SCH (17:30)
[2019-01-30 19:32] VITALS: PULSE 68; RESP 14; TEMP 98
[2019-01-30 19:33] LABS: Glucose,Whole Blood 175 mg/dL (75-99)
[2019-01-30 20:15] VITALS: BP 106/66
[2019-01-30] MEDS ORDERED: MONTELUKAST 10 MG TAB PO SCH (21:00)
[2019-01-30] MEDS ORDERED: ASPIRIN 81 MG PO SCH (21:00)
--- NOTE | 2019-02-03 07:27 | CDI ---
Documentation Clarification Form Date: 02/03/19 From: Rachele Haile Phone: If you have a question about this query, please contact Larisa Noonan, Conservation Planner at [phone] between 8am and 5pm. Admit Date: 01/29/19 Discharge Date: Patient Name: Michelle Curry Visit Number: [id number] ATTENTION: The Clinical Documentation Specialists (CDI) and [facility] Coding Staff appreciate your assistance in clarifying documentation. Please respond to the clarification below the line at the bottom and electronically sign. The CDI & [facility] Coding staff will review the response and follow-up if needed. Please note: Queries are made part of the Legal Health Record. If you have any questions, please contact the author of this message via ITS. Dear Dr. Bart Saldaña, Conflicting documentation has been found in the medical record: ED note states: Type II DM HP/DS: states Type I DM History/Risk Factors: Per HP/DS states hx of Type II w diabetic neuropathy Clinical Indicators: Admission Glucose 863 Treatment: IV fluids, IV Insulin Regular In your opinion, what is the most clinically appropriate diagnosis for this patient? Type I DM Type II DM Other specified Unable to determine type 1 DM confirmed with terrazzo worker Dr. Saldaña MTDD
== END 2019-01-30 20:42 | disposition home or self-care (01) | DRG 639 ==
LOC: EC 16:04 → 3SCARD 17:16 → 6NMEDSUR 01-30 11:13 → 4SSUR 01-30 11:49
PROVIDERS: ADMIT Internal Medicine; ATTEND Internal Medicine
DX: E10.10 Type 1 diabetes mellitus with ketoacidosis without coma (principal); E10.42 Type 1 diabetes mellitus with diabetic polyneuropathy; I11.9 Hypertensive heart disease without heart failure; E78.5 Hyperlipidemia, unspecified; K21.9 Gastro-esophageal reflux disease without esophagitis; M19.90 Unspecified osteoarthritis, unspecified site; I25.10 Atherosclerotic heart disease of native coronary artery without angina pectoris; K59.00 Constipation, unspecified; G47.419 Narcolepsy without cataplexy; M54.31 Sciatica, right side; M54.32 Sciatica, left side; G89.29 Other chronic pain; M54.9 Dorsalgia, unspecified; Z79.82 Long term (current) use of aspirin; Z79.4 Long term (current) use of insulin; Z79.899 Other long term (current) drug therapy; Z86.718 Personal history of other venous thrombosis and embolism; Z90.49 Acquired absence of other specified parts of digestive tract; Z90.710 Acquired absence of both cervix and uterus; Z95.5 Presence of coronary angioplasty implant and graft; Z98.51 Tubal ligation status; Z98.42 Cataract extraction status, left eye; Z98.41 Cataract extraction status, right eye; Z96.1 Presence of intraocular lens; Z88.5 Allergy status to narcotic agent; Z88.2 Allergy status to sulfonamides; Z88.8 Allergy status to other drugs, medicaments and biological substances; Z87.891 Personal history of nicotine dependence; Z82.49 Family history of ischemic heart disease and other diseases of the circulatory system; Z82.0 Family history of epilepsy and other diseases of the nervous system; Z81.1 Family history of alcohol abuse and dependence; Z84.1 Family history of disorders of kidney and ureter
CPT/HCPCS: 36415; 71046; 74018; 80051; 80053; 81003; 82009; 82565; 82803; 82947; 83690; 83735; 84100; 84484; 84520; 85025; 93005; 96361; 96365; 96366; 96367; 99291

== ENCOUNTER 2019-02-16 18:57 | Inpatient (IN) | payer MEDICARE, OTHER ==
[2019-02-16] MEDS ORDERED: SODIUM CHLORIDE 0.9% 1,000 ML IV STA ×2 (19:21→20:56)
--- NOTE | 2019-02-16 19:26 | ED ---
Weakness HPI - General Chief complaint: Nausea/Vomiting/Diarrhea Stated complaint: High Blood Sugar/vomiting Time Seen by Provider: 02/16/19 19:14 Source: patient, RN notes reviewed, old records reviewed Mode of arrival: ambulatory Limitations: no limitations - History of Present Illness Initial comments: This is a 69-year-old female here for evaluation patient's relatively poor historian secondary to decreased willingness A at history taking and decreased willingness to be in the ER patient's primary by family members for elevated blood sugar at home patient states she feels fine was not wanted be in the hospital denying any complaints no pain or shortness of breath or chest pain or nausea vomiting or diarrhea currently. Patient states she is compliant with medications MD Complaint: generalized weakness, lack of energy -: unknown Location: generalized Severity: moderate Severity scale (1-10): 5 Quality: other (no complaints) Improves with: none Worsens with: none Context: recent illness, history of similar Associated Symptoms: denies other symptoms (family states otherwise), loss of appetite, nausea/vomiting - Related Data Home Medications Medication Instructions Recorded Confirmed Aspirin 81 mg PO HS 01/20/16 02/16/19 Metoprolol Tartrate [Lopressor] 25 mg PO BID 04/07/17 02/16/19 Insulin Aspart [NovoLOG] See Protocol SQ ACHS PRN 04/08/17 02/16/19 Insulin Glargine [Lantus] 12 unit SQ HS PRN 09/05/17 02/16/19 Multivit with Calcium,Iron,Min 1 tab PO DAILY 09/09/18 02/16/19 [Women's Multivitamin] Cholecalciferol [Vitamin D3 (25 1,000 unit PO DAILY 01/29/19 02/16/19 Mcg = 1000 Iu)] Cyanocobalamin [Vitamin B-12] 500 mcg PO DAILY 01/30/19 02/16/19 INSULIN ASPART (NovoLOG) [NovoLOG 6 unit SQ AC-TID 01/30/19 02/16/19 (formulary)] Magnesium Oxide [Mag-Ox] 800 mg PO DAILY 01/30/19 02/16/19 Mirtazapine 7.5 mg PO W/SUPPER 01/30/19 02/16/19 Montelukast Sodium [Singulair] 10 mg PO HS 01/30/19 02/16/19 Rosuvastatin [Crestor] 10 mg PO DAILY 01/30/19 02/16/19 amLODIPine [Norvasc] 5 mg PO DAILY 01/30/19 02/16/19 Chlorthalidone [Hygroton] 25 mg PO DAILY 02/16/19 02/16/19 Previous Rx's Medication Instructions Recorded Benzocaine/Menthol Lozeng [Cepacol 1 each MUCOUS MEM Q4HR PRN #30 01/30/19 lozenge] lozenge Allergies Allergy/AdvReac Type Severity Reaction Status Date / Time morphine AdvReac PASSES OUT Verified 02/16/19 21:46 nitroglycerin AdvReac PASSES OUT Verified 02/16/19 21:46 Sulfa (Sulfonamide AdvReac Itching Verified 02/16/19 21:46 Antibiotics) Review of Systems ROS Statement: Those systems with pertinent positive or pertinent negative responses have been documented in the HPI. ROS Other: All systems not noted in ROS Statement are negative. Past Medical History Past Medical History: Coronary Artery Disease (CAD), Diabetes Mellitus, Deep Vein Thrombosis (DVT), GERD/Reflux, Hyperlipidemia, Hypertension, Osteoarthritis (OA), Vascular Disorder Additional Past Medical History / Comment(s): IDDM type II with diabetic neuropathy, narcolepsy, DVTs L lower extremity, vertigo occasionally, low back pian with bilateral sciatica, PAD, pneumothorax when pt was in her 20s with c hest tube, constipation, bronchitis. History of Any Multi-Drug Resistant Organisms: None Reported Past Surgical History: Appendectomy, Cholecystectomy, Heart Catheterization With Stent, Hysterectomy, Tubal Ligation Additional Past Surgical History / Comment(s): PCI/stent, ectopic pregnancies with eventual total hysterectomy, EGD, colonoscopy, L breast biopsy-benign, bilateral carpal tunnel release, bilateral eyes laser surgery/lens. Past Anesthesia/Blood Transfusion Reactions: Previous Problems w/ Anesthesia, Postoperative Nausea & Vomiting (PONV) Additional Past Anesthesia/Blood Transfusion Reaction / Comment(s): PT STATES HER AND HER FAMILY HAVE DIFFICULTY WAKING UP Date of Last Stent Placement:: Past Psychological History: No Psychological Hx Reported Smoking Status: Former smoker Past Alcohol Use History: None Reported Past Drug Use History: None Reported - Past Family History Mother Family Medical History: Hypertension, Seizure Disorder Additional Family Medical History / Comment(s): Mother at age 75 Father Family Medical History: Renal Disease Additional Family Medical History / Comment(s): Father at age 58 from acute renal failure and he was an alcoholic. Son(s) Family Medical History: No Reported History Additional Family Medical History / Comment(s): Patient has 2 sons with no major medical problems. General Exam Limitations: no limitations General appearance: alert, in no apparent distress, cachectic Head exam: Present: atraumatic, normocephalic, normal inspection Eye exam: Present: normal appearance, PERRL, EOMI. Absent: scleral icterus, conjunctival injection, periorbital swelling ENT exam: Present: normal exam, mucous membranes moist Neck exam: Present: normal inspection. Absent: tenderness, meningismus, lymphadenopathy Respiratory exam: Present: normal lung sounds bilaterally. Absent: respiratory distress, wheezes, rales, rhonchi, stridor Cardiovascular Exam: Present: regular rate, normal rhythm, normal heart sounds. Absent: systolic murmur, diastolic murmur, rubs, gallop, clicks GI/Abdominal exam: Present: soft, normal bowel sounds. Absent: distended, tenderness, guarding, rebound, rigid Extremities exam: Present: normal inspection, full ROM, normal capillary refill. Absent: tenderness, pedal edema, joint swelling, calf tenderness Back exam: Present: normal inspection Neurological exam: Present: alert, oriented X3, CN II-XII intact Psychiatric exam: Present: normal affect, normal mood Skin exam: Present: warm, dry, intact, normal color. Absent: rash Course Vital Signs 02/16/19 02/16/19 02/16/19 19:07 19:52 20:31 Temperature 97.6 F Pulse Rate 73 90 86 Respiratory 16 16 16 Rate Blood Pressure 109/59 125/76 120/70 O2 Sat by Pulse 93 L 98 100 Oximetry 02/16/19 02/16/19 02/16/19 20:45 20:57 21:18 Temperature Pulse Rate 87 86 95 Respiratory 17 10 L 12 Rate Blood Pressure 129/69 129/69 139/61 O2 Sat by Pulse 100 100 100 Oximetry - Reevaluation(s) Reevaluation #1: 02/16/19 21:53 Medical records reviewed Reevaluation #2: 02/16/19 21:53 Prior EKGs are reviewed and compared Reevaluation #3: 02/16/19 21:53 painpatient is denying complaints of chest pain complaints of shortness of breath patient states she would like discharged home Reevaluation #4: 02/16/19 21:53 family informed and made aware findings, questions answered - Consultations Consultation #1: spoke with on-call cardiology on arrival as well as achievement patient's EKG, EKG compared to prior EKG, Dr. Milligan also made aware patient's elevated troponin acclimatize he'll continue to monitor Consultation #2: Dr. Heath regarding admission he is agreeable Consultation #3: spoke with Dr. Medeiros regarding ICU admission he is also agreeable EKG Findings - EKG Comments: EKG Findings:: EKG shows sinus rhythm of 88, P1 46, QRS 90, QTc 449 it is repeated with minimal change in morphology compared to prior does seem similar EKG 2 weeks prior morphology - EKG Results: EKG: not changed from: Medical Decision Making - Medical Decision Making 69-year-old female here for evaluation patient has severe elevated blood sugar DKA she'll be admitted to the ICU for monitoring and treatment - Lab Data Result diagrams: 02/16/19 20:16 02/16/19 20:16 Lab Results 02/16/19 02/16/19 02/16/19 Range/Units 19:44 20:04 20:16 WBC (3.8-10.6) k/uL RBC (3.80-5.40) m/uL Hgb (11.4-16.0) gm/dL Hct (34.0-46.0) % MCV (80.0-100.0) fL MCH (25.0-35.0) pg MCHC (31.0-37.0) g/dL RDW (11.5-15.5) % Plt Count (150-450) k/uL Neutrophils % % Lymphocytes % % Monocytes % % Eosinophils % % Basophils % % Neutrophils # (1.3-7.7) k/uL Lymphocytes # (1.0-4.8) k/uL Monocytes # (0-1.0) k/uL Eosinophils # (0-0.7) k/uL Basophils # (0-0.2) k/uL Hypochromasia Macrocytosis PT (9.0-12.0) sec INR (<1.2) APTT (22.0-30.0) sec VBG pH 7.24 L (7.31-7.41) VBG pCO2 31 L (37-51) mmHg VBG HCO3 13 L (24-28) mmol/L Sodium (137-145) mmol/L Potassium (3.5-5.1) mmol/L Chloride (98-107) mmol/L Carbon Dioxide (22-30) mmol/L Anion Gap mmol/L BUN (7-17) mg/dL Creatinine (0.52-1.04) mg/dL Est GFR (CKD-EPI)AfAm (>60 ml/min/1.73 sqM) Est GFR (CKD-EPI)NonAf (>60 ml/min/1.73 sqM) Glucose (74-99) mg/dL POC Glucose (mg/dL) >600 H (75-99) mg/dL POC Glu Human Relations Manager ANGEL Humphrey Houser Plasma Lactic Acid [place] (0.7-2.0) mmol/L Calcium (8.4-10.2) mg/dL Phosphorus (2.5-4.5) mg/dL Magnesium (1.6-2.3) mg/dL Total Bilirubin (0.2-1.3) mg/dL AST (14-36) U/L ALT (4-34) U/L Alkaline Phosphatase (38-126) U/L Creatine Kinase (30-135) U/L Troponin I (0.000-0.034) ng/mL Total Protein (6.3-8.2) g/dL Albumin (3.5-5.0) g/dL TSH (0.465-4.680) mIU/L Urine Color Light Yellow Urine Appearance Clear (Clear) Urine pH 5.0 (5.0-8.0) Ur Specific [place] 1.020 (1.001-1.035) Urine Protein Negative (Negative) Urine Glucose (UA) 4+ H (Negative) Urine Ketones 1+ H (Negative) Urine Blood Negative (Negative) Urine Nitrite Negative (Negative) Urine Bilirubin Negative (Negative) Urine Urobilinogen <2.0 (<2.0) mg/dL Ur Leukocyte Esterase Negative (Negative) 02/16/19 02/16/19 02/16/19 Range/Units 20:16 20:16 20:16 WBC 10.1 (3.8-10.6) k/uL RBC 4.08 (3.80-5.40) m/uL Hgb 11.7 (11.4-16.0) gm/dL Hct 41.0 (34.0-46.0) % MCV 100.5 H (80.0-100.0) fL MCH 28.6 (25.0-35.0) pg MCHC 28.5 L (31.0-37.0) g/dL RDW 14.3 (11.5-15.5) % Plt Count 299 (150-450) k/uL Neutrophils % 84 % Lymphocytes % 11 % Monocytes % 5 % Eosinophils % 0 % Basophils % 1 % Neutrophils # 8.4 H (1.3-7.7) k/uL Lymphocytes # 1.1 (1.0-4.8) k/uL Monocytes # 0.5 (0-1.0) k/uL Eosinophils # 0.0 (0-0.7) k/uL Basophils # 0.1 (0-0.2) k/uL Hypochromasia Marked Macrocytosis Slight PT (9.0-12.0) sec INR (<1.2) APTT (22.0-30.0) sec VBG pH (7.31-7.41) VBG pCO2 (37-51) mmHg VBG HCO3 (24-28) mmol/L Sodium 133 L (137-145) mmol/L Potassium 4.9 (3.5-5.1) mmol/L Chloride 90 L (98-107) mmol/L Carbon Dioxide 12 L (22-30) mmol/L Anion Gap 31 mmol/L BUN 52 H (7-17) mg/dL Creatinine 1.85 H (0.52-1.04) mg/dL Est GFR (CKD-EPI)AfAm 31 (>60 ml/min/1.73 sqM) Est GFR (CKD-EPI)NonAf 27 (>60 ml/min/1.73 sqM) Glucose 848 H* (74-99) mg/dL POC Glucose (mg/dL) (75-99) mg/dL POC Glu Human Relations Manager ID Plasma Lactic Acid [place] 4.0 H* (0.7-2.0) mmol/L Calcium 9.8 (8.4-10.2) mg/dL Phosphorus 9.5 H* (2.5-4.5) mg/dL Magnesium 2.2 (1.6-2.3) mg/dL Total Bilirubin 0.6 (0.2-1.3) mg/dL AST 31 (14-36) U/L ALT 20 (4-34) U/L Alkaline Phosphatase 126 (38-126) U/L Creatine Kinase 102 (30-135) U/L Troponin I (0.000-0.034) ng/mL Total Protein 6.4 (6.3-8.2) g/dL Albumin 3.8 (3.5-5.0) g/dL TSH 0.169 L (0.465-4.680) mIU/L Urine Color Urine Appearance (Clear) Urine pH (5.0-8.0) Ur Specific [place] (1.001-1.035) Urine Protein (Negative) Urine Glucose (UA) (Negative) Urine Ketones (Negative) Urine Blood (Negative) Urine Nitrite (Negative) Urine Bilirubin (Negative) Urine Urobilinogen (<2.0) mg/dL Ur Leukocyte Esterase (Negative) 02/16/19 02/16/19 Range/Units 20:16 20:16 WBC (3.8-10.6) k/uL RBC (3.80-5.40) m/uL Hgb (11.4-16.0) gm/dL Hct (34.0-46.0) % MCV (80.0-100.0) fL MCH (25.0-35.0) pg MCHC (31.0-37.0) g/dL RDW (11.5-15.5) % Plt Count (150-450) k/uL Neutrophils % % Lymphocytes % % Monocytes % % Eosinophils % % Basophils % % Neutrophils # (1.3-7.7) k/uL Lymphocytes # (1.0-4.8) k/uL Monocytes # (0-1.0) k/uL Eosinophils # (0-0.7) k/uL Basophils # (0-0.2) k/uL Hypochromasia Macrocytosis PT 9.5 (9.0-12.0) sec INR 0.9 (<1.2) APTT 20.3 L (22.0-30.0) sec VBG pH (7.31-7.41) VBG pCO2 (37-51) mmHg VBG HCO3 (24-28) mmol/L Sodium (137-145) mmol/L Potassium (3.5-5.1) mmol/L Chloride (98-107) mmol/L Carbon Dioxide (22-30) mmol/L Anion Gap mmol/L BUN (7-17) mg/dL Creatinine (0.52-1.04) mg/dL Est GFR (CKD-EPI)AfAm (>60 ml/min/1.73 sqM) Est GFR (CKD-EPI)NonAf (>60 ml/min/1.73 sqM) Glucose (74-99) mg/dL POC Glucose (mg/dL) (75-99) mg/dL POC Glu Human Relations Manager ID Plasma Lactic Acid [place] (0.7-2.0) mmol/L Calcium (8.4-10.2) mg/dL Phosphorus (2.5-4.5) mg/dL Magnesium (1.6-2.3) mg/dL Total Bilirubin (0.2-1.3) mg/dL AST (14-36) U/L ALT (4-34) U/L Alkaline Phosphatase (38-126) U/L Creatine Kinase (30-135) U/L Troponin I 0.718 H* (0.000-0.034) ng/mL Total Protein (6.3-8.2) g/dL Albumin (3.5-5.0) g/dL TSH (0.465-4.680) mIU/L Urine Color Urine Appearance (Clear) Urine pH (5.0-8.0) Ur Specific [place] (1.001-1.035) Urine Protein (Negative) Urine Glucose (UA) (Negative) Urine Ketones (Negative) Urine Blood (Negative) Urine Nitrite (Negative) Urine Bilirubin (Negative) Urine Urobilinogen (<2.0) mg/dL Ur Leukocyte Esterase (Negative) - Radiology Data Radiology results: report reviewed (chest x-rays negative for acute disease), image reviewed Critical Care Time Critical Care Time: Yes Total Critical Care Time: 31 Disposition Clinical Impression: Dizziness, NSTEMI (non-ST elevated myocardial infarction), DKA (diabetic ketoacidoses), Dehydration, Weakness Disposition: ADMITTED IP TO THIS [facility] Condition: Serious Is patient prescribed a controlled substance at d/c from ED?: No Referrals: Mary Heath MD [Primary Care Provider] - 1-2 days
[2019-02-16 20:01] LABS: Appearance,Urine Clear (Clear); Bilirubin,Urine Negative (Negative); Blood,Urine Negative (Negative); Color,Urine Light Yellow; Glucose,Urine (UA) 4+ (Negative); Ketones,Urine 1+ (Negative); Leukocyte Esterase,Urine Negative (Negative); Nitrite,Urine Negative (Negative); Protein,Urine Negative (Negative); Urobilinogen,Urine <2.0 mg/dL (<2.0)
[2019-02-16 20:10] LABS: Glucose,Whole Blood >600 mg/dL (75-99)
[2019-02-16 20:38] LABS: Basophils # (A) 0.1 k/uL (0-0.2); Basophils % (A) 1 %; Eosinophils % (A) 0 %; HGB 11.7 gm/dL (11.4-16.0); Hypochromasia Marked; Lymphocytes # (A) 1.1 k/uL (1.0-4.8); Lymphocytes % (A) 11 %; MCH 28.6 pg (25.0-35.0); MCHC 28.5 g/dL (31.0-37.0); MCV 100.5 fL (80.0-100.0); Macrocytosis Slight; Mean Platelet Volume 9.6; Monocytes # (A) 0.5 k/uL (0-1.0); Monocytes % (A) 5 %; Neutrophils # (A) 8.4 k/uL (1.3-7.7); Neutrophils % (A) 84 %; Platelet Count 299 k/uL (150-450); RBC 4.08 m/uL (3.80-5.40); RDW 14.3 % (11.5-15.5); VBG PH 7.24 (7.31-7.41); WBC 10.1 k/uL (3.8-10.6)
[2019-02-16 20:48] LABS: INR 0.9 (<1.2); Prothrombin Time 9.5 sec (9.0-12.0)
[2019-02-16 20:52] LABS: Albumin 3.8 g/dL (3.5-5.0); Calcium 9.8 mg/dL (8.4-10.2); Magnesium 2.2 mg/dL (1.6-2.3); Potassium 4.9 mmol/L (3.5-5.1); Total Bilirubin 0.6 mg/dL (0.2-1.3); Total Protein 6.4 g/dL (6.3-8.2)
[2019-02-16 20:54] LABS: Partial Thromboplastin Time 20.3 sec (22.0-30.0)
[2019-02-16 21:01] LABS: Phosphorus 9.5 mg/dL (2.5-4.5)
--- NOTE | 2019-02-16 21:33 | XR ---
EXAMINATION TYPE: XR chest 2V DATE OF EXAM: 02/16/2019 COMPARISON: 01/29/2019 HISTORY: Weakness TECHNIQUE: FINDINGS: There is no heart failure nor confluent pneumonic infiltrate. Costophrenic angles are clear . Thoracic aorta is atheromatous. There are chest leads. Bony thorax appears intact. IMPRESSION: No active cardiopulmonary disease. No change.
[2019-02-16] MEDS ORDERED: NALOXONE 0.4 MG/ML 1 ML VIAL IV PRN (21:42)
[2019-02-16] MEDS ORDERED: HEPARIN SODIUM,PORCINE 5,000 UNIT/ML 1 ML VIAL IV PRN (21:42)
[2019-02-16] MEDS ORDERED: HEPARIN SODIUM,PORCINE 5,000 UNIT/ML 1 ML VIAL IV ONE (21:42)
[2019-02-16] MEDS ORDERED: ASPIRIN 81 MG PO STA (21:42)
[2019-02-16] MEDS ORDERED: IPRATROPIUM-ALBUTEROL 3 ML NEB INHALATION PRN (21:42)
[2019-02-16] MEDS ORDERED: NITROGLYCERIN SL TABS 0.4 MG TAB SUBLINGUAL PRN (21:42)
[2019-02-16] MEDS ORDERED: SODIUM CHLORIDE 0.9% 1,000 ML IV SCH (21:45)
[2019-02-16] MEDS ORDERED: Potassium Replacement Protocol 1 EACH MISC MISCELLANE PRN (21:46)
[2019-02-16] MEDS ORDERED: SODIUM CHLORIDE 0.9% 1,000 ML IV ONE (21:46)
[2019-02-16] MEDS ORDERED: INSULIN REGULAR BOLUS (FROM DRIP BAG) IV ONE (21:46)
[2019-02-16] MEDS ORDERED: Magnesium Replacement Protocol 1 EACH MISC MISCELLANE PRN (21:46)
[2019-02-16] MEDS ORDERED: INSULIN REGULAR 100 UNIT in SODIUM CHLORIDE 0.9% 100 ML IV SCH (22:00)
[2019-02-16 22:52] LABS: Glucose,Whole Blood >600 mg/dL (75-99)
[2019-02-16] MEDS: HEPARIN SOD,PORK IN 0.45% NACL 25,000 UNIT in 0.45% NACL 1 250ML.BAG IV SCH (22:56)
[2019-02-16 23:25] LABS: Glucose,Whole Blood 597 mg/dL (75-99)
[2019-02-17 00:08] LABS: Glucose,Whole Blood >600 mg/dL (75-99)
[2019-02-17] MEDS: SODIUM CHLORIDE 0.9% 1,000 ML IV SCH ×2 (01:03→02:05)
[2019-02-17 03:20] LABS: Glucose,Whole Blood 444 mg/dL (75-99)
[2019-02-17 04:17] LABS: Glucose,Whole Blood 374 mg/dL (75-99)
[2019-02-17 04:32] LABS: Basophils # (A) 0.1 k/uL (0-0.2); Basophils % (A) 1 %; Eosinophils # (A) 0.1 k/uL (0-0.7); Eosinophils % (A) 1 %; Lymphocytes # (A) 1.1 k/uL (1.0-4.8); Lymphocytes % (A) 12 %; MCH 28.9 pg (25.0-35.0); MCHC 31.7 g/dL (31.0-37.0); Mean Platelet Volume 8.8; Monocytes # (A) 0.4 k/uL (0-1.0); Monocytes % (A) 5 %; Neutrophils # (A) 7.8 k/uL (1.3-7.7); Neutrophils % (A) 81 %; Platelet Count 228 k/uL (150-450); RDW 14.7 % (11.5-15.5); WBC 9.6 k/uL (3.8-10.6)
[2019-02-17 04:33] LABS: HGB 9.8 gm/dL (11.4-16.0); MCV 91.1 fL (80.0-100.0)
[2019-02-17 04:35] LABS: Calcium 8.6 mg/dL (8.4-10.2)
[2019-02-17 05:22] LABS: Glucose,Whole Blood 330 mg/dL (75-99)
[2019-02-17 06:15] LABS: Glucose,Whole Blood 285 mg/dL (75-99)
[2019-02-17] MEDS ORDERED: D5-0.45% NACL WITH KCL 20MEQ/L 1,000 ML IV SCH (06:30)
[2019-02-17] MEDS: D5-0.45% NACL WITH KCL 20MEQ/L 1,000 ML IV SCH (06:52)
--- NOTE | 2019-02-17 07:16 | P.CNPUL ---
History of Present Illness Consult date: 02/17/19 Chief complaint: DKA History of present illness: 69-year-old -[place] female patient, type I diabetic, came into the [facility] yesterday with nausea, vomiting, dehydration and hyperglycemia. Immediately she was diagnosed to be in DKA. Also, there is some abnormalities and EKG with some ST segment elevation in the anteroseptal leads. This was discussed with cardiology and compared to previous EKGs the findings are essentially unchanged and troponins were minimally elevated with levels of 0.718 and 1.79. As such the patient was started on IV heparin. She was admitted to the intensive care unit she treated for her DKA. Note that her lactic acid level at time of admission was 4.0 is currently down to 2.0. During the course of the treatment, the patient received insulin drip which was running as high as 5.5 units an hour. She received IV fluids in order of 2.5 L IV bolus and maintenance of 100 mL an hour. Her most recent anion gap is down to 9. The sugars have normalized. And the most recent blood sugar currently is down to 285. White cell count is not elevated. She is free of any chest pain. She is hemodynamically stable. Repeat chest x-ray this morning shows a normal sinus rhythm with some interval improvement in ST segment elevations over the anteroseptal leads. There are some Q waves indicating possibly and older infarct. Note that the patient is known to have previous history of CAD and she has undergone previous stenting to PDA of RCA in 2010. 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 She was in the hospital on 01/30/2019 for diabetic ketoacidosis. This was a similar presentation and the patient was treated and ultimately she was switched to Lantus insulin along with Humalog per scale. She is currently awake and alert. She has no specific complaints. Producing adequate amount of urine output. Review of Systems Constitutional: Denies chills, Denies fever, Denies lethargy, Denies malaise, Denies poor appetite, Denies weakness, Denies weight loss Eyes: denies decreased vision, denies diplopia, denies discharge, denies pain Ears: deny: decreased hearing Ears, nose, mouth and throat: Denies dental pain, Denies headache, Denies nasal discharge, Denies nose pain Cardiovascular: Denies chest pain, Denies decreased exercise tolerance, Denies edema, Denies high blood pressure, Denies irregular heart beat, Denies palpitations, Denies paroxysmal nocturnal dyspnea, Denies rapid heart beat, Denies shortness of breath Respiratory: Denies congestion, Denies cough, Denies cough with sputum, Denies dyspnea, Denies home oxygen, Denies wheezing Gastrointestinal: Denies abdominal pain, Denies change in bowel habits, Denies coffee ground emesis, Denies early satiety, Denies excessive gas, Denies heartburn, Denies hematemesis, Denies hematochezia, Denies loss of appetite, endorses nausea and vomiting resolved Genitourinary: Denies dysuria, Denies flank pain, Denies kidney stones, Denies menorrhagia, Denies urgency, Denies urinary frequency Musculoskeletal: Denies gait dysfunction, Denies limitation of motion, Denies morning stiffness, Denies muscle cramps Integumentary: Denies rash, Denies wounds, Denies brittle nails, Denies change in hair/nails, Denies darkening of skin Neurological: Denies balance difficulties, Denies change in speech, Denies double vision, Denies gait dysfunction, Denies loss of vision, Denies motor disturbance, Denies numbness, Denies paralysis, Denies paresthesias, Denies seizures Psychiatric: Denies anxiety, Denies depression Endocrine: Denies excessive sweating, Denies excessive thirst, Denies high blood sugars, Denies palpitations, the patient was having elevated blood sugars in the blood sugar was as high as 848 at a time of admission. Also the patient was quite acidotic at a time of admission with an anion gap of 31. Hematologic/Lymphatic: Denies easy bruising, Denies lymphadenopathy Past Medical History Past Medical History: Coronary Artery Disease (CAD), Diabetes Mellitus, Deep Vein Thrombosis (DVT), GERD/Reflux, Hyperlipidemia, Hypertension, Osteoarthritis (OA), Vascular Disorder Additional Past Medical History / Comment(s): IDDM type I with diabetic neuropathy, narcolepsy, DVTs L lower extremity, vertigo occasionally, low back pian with bilateral sciatica, PAD, pneumothorax when pt was in her 20s with chest tube, constipation, bronchitis. History of Any Multi-Drug Resistant Organisms: None Reported Past Surgical History: Appendectomy, Cholecystectomy, Heart Catheterization With Stent, Hysterectomy, Tubal Ligation Additional Past Surgical History / Comment(s): PCI/stent, ectopic pregnancies with eventual total hysterectomy, EGD, colonoscopy, L breast biopsy-benign, bilateral carpal tunnel release, bilateral eyes laser surgery/lens. Past Anesthesia/Blood Transfusion Reactions: Previous Problems w/ Anesthesia, Postoperative Nausea & Vomiting (PONV) Additional Past Anesthesia/Blood Transfusion Reaction / Comment(s): PT STATES HER AND HER FAMILY HAVE DIFFICULTY WAKING UP Date of Last Stent Placement:: Past Psychological History: No Psychological Hx Reported Additional Psychological History / Comment(s): Pt resides alone. Her spouse in September 2018. She states she still feels "stress" d/t her spouses but denies depression/thoughts or plans of suicide. She owns a cane/walker but has not needed to use them lately. She does not drive, her gr andson or son take her to appts. Smoking Status: Former smoker Past Alcohol Use History: None Reported Additional Past Alcohol Use History / Comment(s): STARTED SMOKING AT AGE 12, QUIT AT AGE 26 SMOKED 1 PPD Past Drug Use History: None Reported - Past Family History Mother Family Medical History: Hypertension, Seizure Disorder Additional Family Medical History / Comment(s): Mother at age 75 Father Family Medical History: Renal Disease Additional Family Medical History / Comment(s): Father at age 58 from acute renal failure and he was an alcoholic. Son(s) Family Medical History: No Reported History Additional Family Medical History / Comment(s): Patient has 2 sons with no major medical problems. Medications and Allergies Home Medications Medication Instructions Recorded Confirmed Type Aspirin 81 mg PO HS 01/20/16 02/16/19 History Metoprolol Tartrate [Lopressor] 25 mg PO BID 04/07/17 02/16/19 History Insulin Aspart [NovoLOG] See Protocol SQ ACHS PRN 04/08/17 02/16/19 History Insulin Glargine [Lantus] 12 unit SQ HS PRN 09/05/17 02/16/19 History Multivit with Calcium,Iron,Min 1 tab PO DAILY 09/09/18 02/16/19 History [Women's Multivitamin] Cholecalciferol [Vitamin D3 (25 1,000 unit PO DAILY 01/29/19 02/16/19 History Mcg = 1000 Iu)] Benzocaine/Menthol Lozeng [Cepacol 1 each MUCOUS MEM Q4HR PRN #30 01/30/19 Rx lozenge] lozenge Cyanocobalamin [Vitamin B-12] 500 mcg PO DAILY 01/30/19 02/16/19 History INSULIN ASPART (NovoLOG) [NovoLOG 6 unit SQ AC-TID 01/30/19 02/16/19 History (formulary)] Magnesium Oxide [Mag-Ox] 800 mg PO DAILY 01/30/19 02/16/19 History Mirtazapine 7.5 mg PO W/SUPPER 01/30/19 02/16/19 History Montelukast Sodium [Singulair] 10 mg PO HS 01/30/19 02/16/19 History Rosuvastatin [Crestor] 10 mg PO DAILY 01/30/19 02/16/19 History amLODIPine [Norvasc] 5 mg PO DAILY 01/30/19 02/16/19 History Chlorthalidone [Hygroton] 25 mg PO DAILY 02/16/19 02/16/19 History Allergies Allergy/AdvReac Type Severity Reaction Status Date / Time morphine AdvReac PASSES OUT Verified 02/16/19 21:46 nitroglycerin AdvReac PASSES OUT Verified 02/16/19 21:46 Sulfa (Sulfonamide AdvReac Itching Verified 02/16/19 21:46 Antibiotics) Physical Exam Vitals: Vital Signs Temp Pulse Resp BP Pulse Ox 02/17/19 06:00 77 12 113/59 98 02/17/19 05:00 80 12 108/52 96 02/17/19 04:00 98 F 84 13 114/55 95 02/17/19 03:00 80 12 117/57 96 02/17/19 02:00 82 11 L 100/45 97 02/17/19 01:00 87 14 128/65 95 02/17/19 00:00 97.8 F 89 12 129/56 99 02/16/19 23:24 98.1 F 92 18 131/66 100 02/16/19 22:38 98.2 F 87 18 128/65 100 02/16/19 21:18 95 12 139/61 100 02/16/19 20:57 86 10 L 129/69 100 02/16/19 20:45 87 17 129/69 100 02/16/19 20:31 86 16 120/70 100 02/16/19 19:52 90 16 125/76 98 02/16/19 19:07 97.6 F 73 16 109/59 93 L Intake and Output 02/16/19 02/17/19 02/17/19 22:59 06:59 14:59 Intake Total 739.626 Balance 739.626 Intake: IV 700 Sodium Chloride 0.9% 1, 700 000 ml @ 100 mls/hr IV . Q10H TOM[facility]S Rx#:[id number] Intake, IV Titration 39.626 Amount Heparin Sod,Pork in 0.45% 39.626 NaCl 25,000 unit In 0.45 % NaCl 1 250ml.bag @ 12 UNITS/KG/HR 6.586 mls/hr IV .Q24H TOM[facility]S Rx#: [id number] Other: Weight 54.885 kg 57.4 kg - Constitutional General appearance: cooperative, no acute distress, obese - EENT Eyes: anicteric sclerae, PERRLA, normal appearance ENT: hearing grossly normal - Neck Neck: no lymphadenopathy, normal ROM, no other, no rigidity, no stridor, no thyromegaly - Respiratory Respiratory: bilateral:Lungs were clear to auscultation and percussion, and with normal diaphragmatic excursion. No wheezes or rales were noted. - Cardiovascular Rhythm: regular Heart sounds: normal: S1, S2 Abnormal Heart Sounds: no systolic murmur, no diastolic murmur, no rub, no S3 Gallop, no S4 Gallop, no click, no other - Gastrointestinal General gastrointestinal: Abdominal exam revealed normal bowel sounds. The abdomen was soft, non-tender, and without masses, organomegaly, or appreciable enlargement of the abdominal aorta. - Integumentary Integumentary: no rash, Examination of the skin revealed no evidence of significant rashes, suspicious appearing nevi or other concerning lesions. - Neurologic Neurologic: CNII-XII intact - Musculoskeletal Musculoskeletal: gait normal, strength equal bilaterally - Psychiatric Psychiatric: A&O x's 3, appropriate affect Results - Laboratory Findings CBC and BMP: 02/17/19 04:03 02/17/19 04:03 PT/INR, D-dimer PT 9.5 sec (9.0-12.0) 02/16/19 20:16 INR 0.9 (<1.2) 02/16/19 20:16 Abnormal lab findings: Abnormal Labs 02/16/19 02/16/19 02/16/19 19:44 20:04 20:16 RBC Hgb Hct MCV MCHC Neutrophils # APTT VBG pH 7.24 L VBG pCO2 31 L VBG HCO3 13 L Sodium Chloride Carbon Dioxide BUN Creatinine Glucose POC Glucose (mg/dL) >600 H Plasma Lactic Acid Celestino Phosphorus Troponin I HDL Cholesterol TSH Urine Glucose (UA) 4+ H Urine Ketones 1+ H 02/16/19 02/16/19 02/16/19 20:16 20:16 20:16 RBC Hgb Hct MCV 100.5 H MCHC 28.5 L Neutrophils # 8.4 H APTT VBG pH VBG pCO2 VBG HCO3 Sodium 133 L Chloride 90 L Carbon Dioxide 12 L BUN 52 H Creatinine 1.85 H Glucose 848 H* POC Glucose (mg/dL) Plasma Lactic Acid Celestino 4.0 H* Phosphorus 9.5 H* Troponin I HDL Cholesterol TSH 0.169 L Urine Glucose (UA) Urine Ketones 02/16/19 02/16/19 02/16/19 20:16 20:16 22:48 RBC Hgb Hct MCV MCHC Neutrophils # APTT 20.3 L VBG pH VBG pCO2 VBG HCO3 Sodium Chloride Carbon Dioxide BUN Creatinine Glucose POC Glucose (mg/dL) >600 H Plasma Lactic Acid Celestino Phosphorus Troponin I 0.718 H* HDL Cholesterol TSH Urine Glucose (UA) Urine Ketones 02/16/19 02/16/19 02/17/19 23:23 23:56 00:09 RBC Hgb Hct MCV MCHC Neutrophils # APTT VBG pH VBG pCO2 VBG HCO3 Sodium Chloride Carbon Dioxide BUN Creatinine Glucose POC Glucose (mg/dL) 597 H >600 H Plasma Lactic Acid Celestino 2.9 H* Phosphorus Troponin I HDL Cholesterol TSH Urine Glucose (UA) Urine Ketones 02/17/19 02/17/19 02/17/19 00:09 01:48 01:48 RBC Hgb Hct MCV MCHC Neutrophils # APTT VBG pH VBG pCO2 VBG HCO3 Sodium Chloride Carbon Dioxide BUN Creatinine Glucose 610 H* 497 H POC Glucose (mg/dL) Plasma Lactic Acid Celestino Phosphorus Troponin I 1.790 H* HDL Cholesterol TSH Urine Glucose (UA) Urine Ketones 02/17/19 02/17/19 02/17/19 03:09 04:03 04:03 RBC Hgb Hct MCV MCHC Neutrophils # APTT 38.8 H VBG pH VBG pCO2 VBG HCO3 Sodium Chloride Carbon Dioxide BUN 48 H Creatinine 1.41 H Glucose 377 H POC Glucose (mg/dL) 444 H Plasma Lactic Acid Celestino Phosphorus Troponin I HDL Cholesterol 64 H TSH Urine Glucose (UA) Urine Ketones 02/17/19 02/17/19 02/17/19 04:03 04:06 05:11 RBC 3.40 L Hgb 9.8 L D Hct 31.0 L MCV MCHC Neutrophils # 7.8 H APTT VBG pH VBG pCO2 VBG HCO3 Sodium Chloride Carbon Dioxide BUN Creatinine Glucose POC Glucose (mg/dL) 374 H 330 H Plasma Lactic Acid Celestino Phosphorus Troponin I HDL Cholesterol TSH Urine Glucose (UA) Urine Ketones 02/17/19 06:04 RBC Hgb Hct MCV MCHC Neutrophils # APTT VBG pH VBG pCO2 VBG HCO3 Sodium Chloride Carbon Dioxide BUN Creatinine Glucose POC Glucose (mg/dL) 285 H Plasma Lactic Acid Celestino Phosphorus Troponin I HDL Cholesterol TSH Urine Glucose (UA) Urine Ketones - Diagnostic Findings Chest x-ray: image reviewed Assessment and Plan Plan: 1 diabetic is acidosis in a patient with known history of diabetes mellitus which has been poorly controlled and the patient has been diagnosed having type 1 diabetes maintained on Lantus insulin outpatient basis in addition to her Humalog sliding scale coverage. The patient was taken Lantus insulin 12 units at bedtime and NovoLog according to scale and 6 units every before meals, 3 times a day. The patient presented with severe metabolic acidosis and severe anion gap metabolic acidosis and the patient was treated with fluids and insulin drip and currently Is down to 9 and the patient was taken off the insulin drip and will be transitioned to Lantus insulin along with a size scale coverage. 2 elevation troponin without any chest pain. EKG abnormalities are present with some ST segment changes and Q waves. This could be an indication of an old infarct. EKG was done by cardiology. No immediate intervention was recommended. Troponin peaked at 1.7. 3 coronary artery disease with previous stenting of PDA branch of RCA in 2010 maintain on aspirin on outpatient basis 4 hypertension 5 hyperlipidemia 6 narcolepsy, followed up with the sleep center and the patient does not take any form of stimulant treatment for now 7 acute lactic acidosis, improving 8 acute kidney injury improving and the creatinine is down to 1.4 9 remote history of blood clots in the lower extremities, currently on no anticoagulants Plan Provide diabetic carbohydrate consistent diet today Restart Lantus 12 units this morning along with Humalog 6 units with meals and a sliding scale coverage Zofran for nausea and emesis Continue IV fluids and gradually cut down the IV fluids and the patient was transitioned to regular diet. Currently the IV fluids running at 50 mL an hour Repeat echocardiogram Continued IV heparin Continue aspirin Follow-up EKG from this morning was noted and cardiology consultation will be obtained We'll continue to follow and the patient can be transferred to medical floor with telemetry once cleared by cardiology .
[2019-02-17] MEDS ORDERED: INSULIN DETEMIR (LEVEMIR) 100 UNIT/ML SYR SQ ONE (07:30)
[2019-02-17] MEDS: INSULIN ASPART (NovoLOG) 100 UNIT/ML VIAL SQ SCH ×7 (07:59→20:53)
[2019-02-17 08:08] LABS: Glucose,Whole Blood 271 mg/dL (75-99)
[2019-02-17 08:54] LABS: Amylase 47 U/L (30-110)
[2019-02-17] MEDS ORDERED: METOPROLOL TARTRATE 25 MG TAB PO SCH ×2 (09:00→21:00)
[2019-02-17] MEDS ORDERED: ASPIRIN 325 MG TAB PO SCH (09:00)
[2019-02-17] MEDS: PANTOPRAZOLE 40 MG/10 ML VIAL IV SCH (09:12)
[2019-02-17] MEDS: METOPROLOL TARTRATE 50 MG TAB PO SCH (09:12)
[2019-02-17] MEDS: ASPIRIN 81 MG PO SCH (09:12)
--- NOTE | 2019-02-17 10:39 | CONS ---
CONSULTATION Michelle is a 69-year-old lady with a history of type 1 diabetes, hypertension, hyperlipidemia, who presented to the hospital with nausea, elevated blood sugar was in diabetic ketoacidosis, was placed on insulin drip and hydrated. This morning she feels better. Her nausea has improved. She also has elevated troponin, but denies any chest pain, shortness of breath or palpitation. At the time of my evaluation, she is comfortable, resting. Blood sugar is in the mid 200s. She is on a long-acting preparation. Hemodynamically stable, doing well. PAST MEDICAL HISTORY: 1. Type 1 diabetes with previous episodes of diabetic ketoacidosis. 2. Hypertension. 3. Hyperlipidemia. 4. Known history of CAD with stenting of PDA branch of RCA performed, apparently sometime in 2010, the details are not available at this time. She was scheduled to have a stress test in the office, but did not have one. Her ejection fraction in 2016 was normal. PAST MEDICAL HISTORY: 1. History of type 1 diabetes with episodes of DKA. 2. DVT in the past. 3. Hypertension. 4. Hyperlipidemia. 5. CAD with previous stenting of PDA of RCA in 2010. She is status post hemorrhoidectomy, had some lung surgery because of collapsed lung and cataract operation. MEDICATIONS: Medications at home include metoprolol tartrate 25 mg b.i.d., insulin Lantus and NovoLog combination, magnesium supplement, Singulair, rosuvastatin 10 mg daily, amlodipine 5 mg daily and Hygroton 25 mg daily. ALLERGIES: She is allergic to SULFA, NITRATES and MORPHINE. I am not sure what the allergy to NITRATES. PHYSICAL EXAMINATION: Blood pressure is 130/70, pulse rate is 86 per minute. HEENT: Unremarkable. Fundus was not examined by me. Neck is supple. No JVD. I do not hear a carotid bruit. Heart exam reveals S1, S2 heard normally, short systolic murmur is audible. Lungs reveal decent air entry. Abdomen is soft. Lower extremities reveal diminished pulses. Central nervous system is grossly within normal limits without focal deficits. EKG revealed a sinus mechanism with LVH by voltage criteria, repolarization changes, leftward axis, prominent T-waves and ST-T abnormality. The patient also had an EKG per that was performed in 2018 which is similar with the same changes and I do not believe we are dealing with any acute findings. These nonspecific ST-T changes and LVH type picture were also seen on the previous EKG from January 29. LABORATORY DATA: Laboratory data suggests that the troponin initially was 0.71, now it is 1.7. Additional troponins are pending and the patient is also on intravenous heparin at this time. IMPRESSION: 1. [id number] myocardial infarction. 2. Hypertension. 3. Diabetic ketoacidosis, which has resolved. Patient is off IV insulin drip. 4. History of prior PCI of PDA branch of RCA. RECOMMENDATIONS: I am recommending that we continue IV heparin, increase beta ynes. Obtain echocardiogram. Add nitro paste. Decrease aspirin to 81 mg daily. Based on clinical course, I will make further recommendations and I also mentioned to the patient the possibility of cardiac cath when she recovers from this. Renal function is slightly abnormal. ASHLEY / KEITH: [id number] /
[2019-02-17] MEDS: NITROGLYCERIN OINT 1 INCH/GM PACKET TOPICAL SCH ×2 (12:06→17:07)
[2019-02-17 12:08] LABS: Glucose,Whole Blood 152 mg/dL (75-99)
--- NOTE | 2019-02-17 12:37 | ECHOF ---
Referral Reason:abnormal trops, cad MEASUREMENTS -------- HEIGHT: 172.7 cm WEIGHT: 57.2 kg BP: IVSd: 1.6 cm (0.6 - 1.1) LVIDd: 3.4 cm (3.9 - 5.3) LVPWd: 1.5 cm (0.6 - 1.1) IVSs: 1.9 cm LVIDs: 1.4 cm LVPWs: 2.3 cm LAESV Index (A-L): 50.84 ml/m Ao Diam: 3.2 cm (2.0 - 3.7) AV Cusp: 2.0 cm (1.5 - 2.6) LA Diam: 2.5 cm (2.7 - 3.8) MV EXCURSION: 14.642 mm (> 18.000) MV EF SLOPE: 97 mm/s (70 - 150) EPSS: 0.3 cm MV E Juancarlos: 1.10 m/s MV DecT: 182 ms MV A Juancarlos: 0.99 m/s MV E/A Ratio: 1.11 RAP: 15.00 mmHg RVSP: 26.59 mmHg TAPSE: 21.80 mm FINDINGS -------- Sinus rhythm. This was a technically good study. The cavity size is decreased. There is severe concentric left ventricular hypertrophy. Overall le ft ventricular systolic function is normal with, an EF between 60 - 65 %. Increased LAP. Grade 2 Di astolic Dysfuntion. The right ventricle is normal in size. The right ventricular systolic function is normal. LA is severely dilated >40 ml/m2 The right atrial size is normal. Interatrial and interventricular septum intact. The aortic valve is trileaflet and appears structurally normal. The mitral valve is normal. The mitral valve leaflets are mildly thickened. Moderate mitral regur gitation is present. The tricuspid valve appears structurally normal. Mild tricuspid regurgitation present. Right vent ricular systolic pressure is normal at < 35 mmHg. There is no pulmonic regurgitation present. The aortic root size is normal. The inferior vena cava is mildly dilated. There is no pericardial effusion. CONCLUSIONS -------- 1. Sinus rhythm. 2. This was a technically good study. 3. The cavity size is decreased. 4. There is severe concentric left ventricular hypertrophy. 5. Overall left ventricular systolic function is normal with, an EF between 60 - 65 %. 6. Increased LAP. Grade 2 Diastolic Dysfuntion. 7. The right ventricle is normal in size. 8. The right ventricular systolic function is normal. 9. LA is severely dilated >40 ml/m2 10. The right atrial size is normal. 11. Interatrial and interventricular septum intact. 12. The aortic valve is trileaflet and appears structurally normal. 13. The mitral valve is normal. 14. The mitral valve leaflets are mildly thickened. 15. Moderate mitral regurgitation is present. 16. The tricuspid valve appears structurally normal. 17. Mild tricuspid regurgitation present. 18. Right ventricular systolic pressure is normal at < 35 mmHg. 19. There is no pulmonic regurgitation present. 20. The aortic root size is normal. 21. The inferior vena cava is mildly dilated. 22. There is no pericardial effusion. LEAD SYSTEMS ENGINEER: Kizzy Urias RDCS
--- NOTE | 2019-02-17 12:49 | P.HPIM ---
History of Present Illness H&P Date: 02/17/19 Chief Complaint: DK/non-ST elevation KS. This is a 69-year-old -[place] female one of my patient with a previous medical history significant for diabetes mellitus type 1 with diabetic polyneuropathy, hypertension and hypertensive cardiovascular disease with left ventricular hypertrophy, CAD status post PCI of the PDA off the RCA back in 2010, history of DVT in lower extremity, history of narcolepsy, significant weight loss over the last few months since her with metastatic lung cancer, and she had lost quite a bit of weight and not controlling her diabetes very well her hemoglobin A1c is around 14%, patient stated that she was eating 3 slices of pizza yesterday and developed to have significant abdominal pain associated with multiple episode of vomiting and diarrhea and the patient was brought to the emergency department by family member due to the fact that the patient was quite sick and she was found to have a diabetic ketoacidosis with a blood glucose level of greater than 900, patient was started on insulin drip and she was started on IV fluid resuscitation she was admitted to the intensive care unit, she was seen in consultation by cardiology as well as by pulmonary medicine as the patient EKG did show some subtle changes in the anterior leads with reciprocal changes, troponin initially was slightly elevated and peaked at 1.7 patient was placed on heparin drip as well as aspirin and she was placed on beta blockers and statin, the plan is to do an echocardiogram, patient's anion gap was closed and she was switched from insulin drip to Lantus 12 units in the morning along with the Humalog 6 units before each meal along with a sliding scale insulin. Review of Systems Constitutional: Reports anorexia, Reports fatigue, Reports malaise, Reports poor appetite, Reports weakness, Reports weight loss, Denies chronic pain Eyes: bilateral blurred vision, denies bulging eye, denies decreased vision, denies diplopia Ears: deny: decreased hearing Ears, nose, mouth and throat: Denies dysphagia, Denies neck lump, Denies sore throat Cardiovascular: Reports decreased exercise tolerance, Reports dyspnea on exertion, Reports shortness of breath, Denies chest pain, Denies lightheadedness, Denies rapid heart beat, Denies syncope Respiratory: Denies congestion, Denies cough with sputum, Denies home oxygen, Denies sleep apnea, Denies snoring, Denies wheezing Gastrointestinal: Reports abdominal pain, Reports nausea, Reports vomiting, Denies BRBPR, Denies change in bowel habits, Denies heartburn, Denies melena Genitourinary: Denies dysuria, Denies nocturia Menstruation: Reports postmenopausal Musculoskeletal: Denies myalgias Musculoskeletal: absent: ankle pain, ankle stiffness, ankle swelling, elbow pain, elbow stiffness, elbow swelling, foot pain, foot stiffness, foot swelling, hand pain, hand stiffness, hand swelling, hip pain, hip stiffness, hip swelling, knee pain, knee stiffness, knee swelling, shoulder pain, shoulder stiffness, shoulder swelling, wrist pain, wrist stiffness, wrist swelling Integumentary: Denies pruritus, Denies rash Neurological: Reports numbness, Reports sensory deficit, Reports weakness, Reports visual changes Psychiatric: Reports anxiety, Reports hypersomnia Endocrine: Reports fatigue, Reports weight change Past Medical History Past Medical History: Coronary Artery Disease (CAD), Diabetes Mellitus, Deep Vein Thrombosis (DVT), GERD/Reflux, Hyperlipidemia, Hypertension, Osteoarthritis (OA), Vascular Disorder Additional Past Medical History / Comment(s): IDDM type I with diabetic neuropathy, narcolepsy, DVTs L lower extremity, vertigo occasionally, low back pian with bilateral sciatica, PAD, pneumothorax when pt was in her 20s with chest tube, constipation, bronchitis. History of Any Multi-Drug Resistant Organisms: None Reported Past Surgical History: Appendectomy, Cholecystectomy, Heart Catheterization With Stent, Hysterectomy, Tubal Ligation Additional Past Surgical History / Comment(s): PCI/stent, ectopic pregnancies with eventual total hysterectomy, EGD, colonoscopy, L breast biopsy-benign, bilateral carpal tunnel release, bilateral eyes laser surgery/lens. Past Anesthesia/Blood Transfusion Reactions: Previous Problems w/ Anesthesia, Postoperative Nausea & Vomiting (PONV) Additional Past Anesthesia/Blood Transfusion Reaction / Comment(s): PT STATES HER AND HER FAMILY HAVE DIFFICULTY WAKING UP Date of Last Stent Placement:: Past Psychological History: No Psychological Hx Reported Additional Psychological History / Comment(s): Pt resides alone. Her spouse in September 2018. She states she still feels "stress" d/t her spouses but denies depression/thoughts or plans of suicide. She owns a cane/walker but has not needed to use them lately. She does not drive, her grandson or son take her to appts. Smoking Status: Former smoker Past Alcohol Use History: None Reported Additional Past Alcohol Use History / Comment(s): STARTED SMOKING AT AGE 12, QUIT AT AGE 26 SMOKED 1 PPD Past Drug Use History: None Reported - Past Family History Mother Family Medical History: Hypertension, Seizure Disorder Additional Family Medical History / Comment(s): Mother at age 75 Father Family Medical History: Renal Disease Additional Family Medical History / Comment(s): Father at age 58 from acute renal failure and he was an alcoholic. Son(s) Family Medical History: No Reported History Additional Family Medical History / Comment(s): Patient has 2 sons with no major medical problems. Medications and Allergies Home Medications Medication Instructions Recorded Confirmed Type Aspirin 81 mg PO HS 01/20/16 02/16/19 History Metoprolol Tartrate [Lopressor] 25 mg PO BID 04/07/17 02/16/19 History Insulin Aspart [NovoLOG] See Protocol SQ ACHS PRN 04/08/17 02/16/19 History Insulin Glargine [Lantus] 12 unit SQ HS PRN 09/05/17 02/16/19 History Multivit with Calcium,Iron,Min 1 tab PO DAILY 09/09/18 02/16/19 History [Women's Multivitamin] Cholecalciferol [Vitamin D3 (25 1,000 unit PO DAILY 01/29/19 02/16/19 History Mcg = 1000 Iu)] Cyanocobalamin [Vitamin B-12] 500 mcg PO DAILY 01/30/19 02/16/19 History INSULIN ASPART (NovoLOG) [NovoLOG 6 unit SQ AC-TID 01/30/19 02/16/19 History (formulary)] Magnesium Oxide [Mag-Ox] 800 mg PO DAILY 01/30/19 02/16/19 History Mirtazapine 7.5 mg PO W/SUPPER 01/30/19 02/16/19 History Montelukast Sodium [Singulair] 10 mg PO HS 01/30/19 02/16/19 History Rosuvastatin [Crestor] 10 mg PO DAILY 01/30/19 02/16/19 History amLODIPine [Norvasc] 5 mg PO DAILY 01/30/19 02/16/19 History Chlorthalidone [Hygroton] 25 mg PO DIRECTED 02/16/19 02/17/19 History Benzocaine/Menthol Lozeng [Cepacol 1 lozenge MUCOUS MEM Q4HR PRN 02/17/19 02/16/19 History lozenge] Losartan [Cozaar] 50 mg PO DIRECTED 02/17/19 02/17/19 History Allergies Allergy/AdvReac Type Severity Reaction Status Date / Time morphine AdvReac PASSES OUT Verified 02/16/19 21:46 nitroglycerin AdvReac PASSES OUT Verified 02/16/19 21:46 Sulfa (Sulfonamide AdvReac Itching Verified 02/16/19 21:46 Antibiotics) Physical Exam Vitals: Vital Signs Temp Pulse Resp BP Pulse Ox 02/17/19 12:00 97.9 F 61 14 122/67 99 02/17/19 11:00 65 17 121/70 99 02/17/19 10:00 63 12 120/66 98 02/17/19 09:00 76 13 139/73 97 02/17/19 08:00 98.0 F 78 11 L 131/69 94 L 02/17/19 07:00 77 11 L 123/62 98 02/17/19 06:00 77 12 113/59 98 02/17/19 05:00 80 12 108/52 96 02/17/19 04:00 98 F 84 13 114/55 95 02/17/19 03:00 80 12 117/57 96 02/17/19 02:00 82 11 L 100/45 97 02/17/19 01:00 87 14 128/65 95 02/17/19 00:00 97.8 F 89 12 129/56 99 02/16/19 23:24 98.1 F 92 18 131/66 100 02/16/19 22:38 98.2 F 87 18 128/65 100 02/16/19 21:18 95 12 139/61 100 02/16/19 20:57 86 10 L 129/69 100 02/16/19 20:45 87 17 129/69 100 02/16/19 20:31 86 16 120/70 100 02/16/19 19:52 90 16 125/76 98 02/16/19 19:07 97.6 F 73 16 109/59 93 L Intake and Output 02/16/19 02/17/19 02/17/19 22:59 06:59 14:59 Intake Total 739.626 575 Output Total 0 Balance 739.626 575 Intake: IV 700 300 D5-0.45% NaCl with KCl 300 20Meq/l 1,000 ml @ 50 mls /hr IV .Q20H [facility] Rx#: [id number] Sodium Chloride 0.9% 1, 700 000 ml @ 100 mls/hr IV . Q10H [facility] Rx#:[id number] Intake, IV Titration 39.626 Amount Heparin Sod,Pork in 0.45% 39.626 NaCl 25,000 unit In 0.45 % NaCl 1 250ml.bag @ 12 UNITS/KG/HR 6.586 mls/hr IV .Q24H [facility] Rx#: [id number] Oral 275 Output: Urine 0 Other: Weight 54.885 kg 57.4 kg - Constitutional General appearance: no acute distress, thin - EENT Eyes: anicteric sclerae, EOMI, PERRLA, no ptosis, no scleral icterus, normal appearance ENT: hearing grossly normal, NA/AT, normal oropharynx, no thrush Ears: bilateral: normal - Neck Neck: no lymphadenopathy, normal ROM, no rigidity, no stridor, no thyromegaly Carotids: bilateral: upstroke normal Thyroid: bilateral: normal size - Respiratory Respiratory: bilateral: diminished, negative: dullness, rales, rhonchi, wheezing, prolonged expiration, prolonged inspiration - Cardiovascular Rhythm: regular Heart sounds: normal: S1, S2 Abnormal Heart Sounds: systolic murmur, no S3 Gallop, no S4 Gallop - Gastrointestinal General gastrointestinal: normal bowel sounds, soft, no tenderness, no umbilical hernia, no ventral hernia - Integumentary Integumentary: normal, normal turgor - Neurologic Neurologic: CNII-XII intact - Musculoskeletal Musculoskeletal: gait normal, generalized weakness, strength equal bilaterally - Psychiatric Psychiatric: A&O x's 3, appropriate affect, intact judgment & insight Results CBC & Chem 7: 02/17/19 04:03 02/17/19 04:03 Labs: Abnormal Lab Results - Last 24 Hours (Table) 02/16/19 02/16/19 02/16/19 Range/Units 19:44 20:04 20:16 RBC (3.80-5.40) m/uL Hgb (11.4-16.0) gm/dL Hct (34.0-46.0) % MCV (80.0-100.0) fL MCHC (31.0-37.0) g/dL Neutrophils # (1.3-7.7) k/uL APTT (22.0-30.0) sec VBG pH 7.24 L (7.31-7.41) VBG pCO2 31 L (37-51) mmHg VBG HCO3 13 L (24-28) mmol/L Sodium (137-145) mmol/L Chloride (98-107) mmol/L Carbon Dioxide (22-30) mmol/L BUN (7-17) mg/dL Creatinine (0.52-1.04) mg/dL Glucose (74-99) mg/dL POC Glucose (mg/dL) >600 H (75-99) mg/dL Plasma Lactic Acid Celestino (0.7-2.0) mmol/L Phosphorus (2.5-4.5) mg/dL Troponin I (0.000-0.034) ng/mL HDL Cholesterol (40-60) mg/dL TSH (0.465-4.680) mIU/L Urine Glucose (UA) 4+ H (Negative) Urine Ketones 1+ H (Negative) 02/16/19 02/16/19 02/16/19 Range/Units 20:16 20:16 20:16 RBC (3.80-5.40) m/uL Hgb (11.4-16.0) gm/dL Hct (34.0-46.0) % MCV 100.5 H (80.0-100.0) fL MCHC 28.5 L (31.0-37.0) g/dL Neutrophils # 8.4 H (1.3-7.7) k/uL APTT (22.0-30.0) sec VBG pH (7.31-7.41) VBG pCO2 (37-51) mmHg VBG HCO3 (24-28) mmol/L Sodium 133 L (137-145) mmol/L Chloride 90 L (98-107) mmol/L Carbon Dioxide 12 L (22-30) mmol/L BUN 52 H (7-17) mg/dL Creatinine 1.85 H (0.52-1.04) mg/dL Glucose 848 H* (74-99) mg/dL POC Glucose (mg/dL) (75-99) mg/dL Plasma Lactic Acid Celestino 4.0 H* (0.7-2.0) mmol/L Phosphorus 9.5 H* (2.5-4.5) mg/dL Troponin I (0.000-0.034) ng/mL HDL Cholesterol (40-60) mg/dL TSH 0.169 L (0.465-4.680) mIU/L Urine Glucose (UA) (Negative) Urine Ketones (Negative) 02/16/19 02/16/19 02/16/19 Range/Units 20:16 20:16 22:48 RBC (3.80-5.40) m/uL Hgb (11.4-16.0) gm/dL Hct (34.0-46.0) % MCV (80.0-100.0) fL MCHC (31.0-37.0) g/dL Neutrophils # (1.3-7.7) k/uL APTT 20.3 L (22.0-30.0) sec VBG pH (7.31-7.41) VBG pCO2 (37-51) mmHg VBG HCO3 (24-28) mmol/L Sodium (137-145) mmol/L Chloride (98-107) mmol/L Carbon Dioxide (22-30) mmol/L BUN (7-17) mg/dL Creatinine (0.52-1.04) mg/dL Glucose (74-99) mg/dL POC Glucose (mg/dL) >600 H (75-99) mg/dL Plasma Lactic Acid Celestino (0.7-2.0) mmol/L Phosphorus (2.5-4.5) mg/dL Troponin I 0.718 H* (0.000-0.034) ng/mL HDL Cholesterol (40-60) mg/dL TSH (0.465-4.680) mIU/L Urine Glucose (UA) (Negative) Urine Ketones (Negative) 02/16/19 02/16/19 02/17/19 Range/Units 23:23 23:56 00:09 RBC (3.80-5.40) m/uL Hgb (11.4-16.0) gm/dL Hct (34.0-46.0) % MCV (80.0-100.0) fL MCHC (31.0-37.0) g/dL Neutrophils # (1.3-7.7) k/uL APTT (22.0-30.0) sec VBG pH (7.31-7.41) VBG pCO2 (37-51) mmHg VBG HCO3 (24-28) mmol/L Sodium (137-145) mmol/L Chloride (98-107) mmol/L Carbon Dioxide (22-30) mmol/L BUN (7-17) mg/dL Creatinine (0.52-1.04) mg/dL Glucose (74-99) mg/dL POC Glucose (mg/dL) 597 H >600 H (75-99) mg/dL Plasma Lactic Acid Celestino 2.9 H* (0.7-2.0) mmol/L Phosphorus (2.5-4.5) mg/dL Troponin I (0.000-0.034) ng/mL HDL Cholesterol (40-60) mg/dL TSH (0.465-4.680) mIU/L Urine Glucose (UA) (Negative) Urine Ketones (Negative) 02/17/19 02/17/19 02/17/19 Range/Units 00:09 01:48 01:48 RBC (3.80-5.40) m/uL Hgb (11.4-16.0) gm/dL Hct (34.0-46.0) % MCV (80.0-100.0) fL MCHC (31.0-37.0) g/dL Neutrophils # (1.3-7.7) k/uL APTT (22.0-30.0) sec VBG pH (7.31-7.41) VBG pCO2 (37-51) mmHg VBG HCO3 (24-28) mmol/L Sodium (137-145) mmol/L Chloride (98-107) mmol/L Carbon Dioxide (22-30) mmol/L BUN (7-17) mg/dL Creatinine (0.52-1.04) mg/dL Glucose 610 H* 497 H (74-99) mg/dL POC Glucose (mg/dL) (75-99) mg/dL Plasma Lactic Acid Celestino (0.7-2.0) mmol/L Phosphorus (2.5-4.5) mg/dL Troponin I 1.790 H* (0.000-0.034) ng/mL HDL Cholesterol (40-60) mg/dL TSH (0.465-4.680) mIU/L Urine Glucose (UA) (Negative) Urine Ketones (Negative) 02/17/19 02/17/19 02/17/19 Range/Units 03:09 04:03 04:03 RBC (3.80-5.40) m/uL Hgb (11.4-16.0) gm/dL Hct (34.0-46.0) % MCV (80.0-100.0) fL MCHC (31.0-37.0) g/dL Neutrophils # (1.3-7.7) k/uL APTT 38.8 H (22.0-30.0) sec VBG pH (7.31-7.41) VBG pCO2 (37-51) mmHg VBG HCO3 (24-28) mmol/L Sodium (137-145) mmol/L Chloride (98-107) mmol/L Carbon Dioxide (22-30) mmol/L BUN 48 H (7-17) mg/dL Creatinine 1.41 H (0.52-1.04) mg/dL Glucose 377 H (74-99) mg/dL POC Glucose (mg/dL) 444 H (75-99) mg/dL Plasma Lactic Acid Celestino (0.7-2.0) mmol/L Phosphorus (2.5-4.5) mg/dL Troponin I (0.000-0.034) ng/mL HDL Cholesterol 64 H (40-60) mg/dL TSH (0.465-4.680) mIU/L Urine Glucose (UA) (Negative) Urine Ketones (Negative) 02/17/19 02/17/19 02/17/19 Range/Units 04:03 04:06 05:11 RBC 3.40 L (3.80-5.40) m/uL Hgb 9.8 L D (11.4-16.0) gm/dL Hct 31.0 L (34.0-46.0) % MCV (80.0-100.0) fL MCHC (31.0-37.0) g/dL Neutrophils # 7.8 H (1.3-7.7) k/uL APTT (22.0-30.0) sec VBG pH (7.31-7.41) VBG pCO2 (37-51) mmHg VBG HCO3 (24-28) mmol/L Sodium (137-145) mmol/L Chloride (98-107) mmol/L Carbon Dioxide (22-30) mmol/L BUN (7-17) mg/dL Creatinine (0.52-1.04) mg/dL Glucose (74-99) mg/dL POC Glucose (mg/dL) 374 H 330 H (75-99) mg/dL Plasma Lactic Acid Celestino (0.7-2.0) mmol/L Phosphorus (2.5-4.5) mg/dL Troponin I (0.000-0.034) ng/mL HDL Cholesterol (40-60) mg/dL TSH (0.465-4.680) mIU/L Urine Glucose (UA) (Negative) Urine Ketones (Negative) 02/17/19 02/17/19 02/17/19 Range/Units 06:04 07:57 09:57 RBC (3.80-5.40) m/uL Hgb (11.4-16.0) gm/dL Hct (34.0-46.0) % MCV (80.0-100.0) fL MCHC (31.0-37.0) g/dL Neutrophils # (1.3-7.7) k/uL APTT 63.0 H (22.0-30.0) sec VBG pH (7.31-7.41) VBG pCO2 (37-51) mmHg VBG HCO3 (24-28) mmol/L Sodium (137-145) mmol/L Chloride (98-107) mmol/L Carbon Dioxide (22-30) mmol/L BUN (7-17) mg/dL Creatinine (0.52-1.04) mg/dL Glucose (74-99) mg/dL POC Glucose (mg/dL) 285 H 271 H (75-99) mg/dL Plasma Lactic Acid Celestino (0.7-2.0) mmol/L Phosphorus (2.5-4.5) mg/dL Troponin I (0.000-0.034) ng/mL HDL Cholesterol (40-60) mg/dL TSH (0.465-4.680) mIU/L Urine Glucose (UA) (Negative) Urine Ketones (Negative) 02/17/19 02/17/19 Range/Units 09:57 11:57 RBC (3.80-5.40) m/uL Hgb (11.4-16.0) gm/dL Hct (34.0-46.0) % MCV (80.0-100.0) fL MCHC (31.0-37.0) g/dL Neutrophils # (1.3-7.7) k/uL APTT (22.0-30.0) sec VBG pH (7.31-7.41) VBG pCO2 (37-51) mmHg VBG HCO3 (24-28) mmol/L Sodium (137-145) mmol/L Chloride (98-107) mmol/L Carbon Dioxide (22-30) mmol/L BUN (7-17) mg/dL Creatinine (0.52-1.04) mg/dL Glucose (74-99) mg/dL POC Glucose (mg/dL) 152 H (75-99) mg/dL Plasma Lactic Acid Celestino (0.7-2.0) mmol/L Phosphorus (2.5-4.5) mg/dL Troponin I 1.770 H* (0.000-0.034) ng/mL HDL Cholesterol (40-60) mg/dL TSH (0.465-4.680) mIU/L Urine Glucose (UA) (Negative) Urine Ketones (Negative) Thrombosis Risk Factor Assmnt - DVT/VTE Prophylaxis DVT/VTE Prophylaxis: Pharmacologic Prophylaxis ordered, Mechanical Prophylaxis ordered - Choose All That Apply Any of the Below Risk Factors Present?: Yes Each Factor Represents 1 point: Medical pt on bed rest Other Risk Factors: Yes Each Risk Factor Represents 2 Points: Age 61-74 years Each Risk Factor Represents 3 Points: History of DVT/PE Thrombosis Risk Factor Assessment Total Risk Factor Score: 6 Thrombosis Risk Factor Assessment Level: High Risk Assessment and Plan Assessment: Assessment and plan: 1. Diabetic ketoacidosis. 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 2. Poorly controlled diabetes mellitus type 1. Continue patient on Lantus 12 units in the morning along with the Humalog 6 units before each meal, diabetic education, follow-up with endocrinology as an outpatient last hemoglobin A1c was around 14%. 3. Non-ST elevation KS. Continue patient on aspirin 81 mg once every day, heparin drip, continue metoprolol 50 mg in the morning 25 mg daily, start the patient on Crestor 10 mg orally once every day. 4. Hypertension and hypertensive cardiovascular disease. Continue metoprolol 50 mg the morning and 25 mg daily. 5. Diabetic polyneuropathy. Currently not on any medication. 6. Acute kidney injury secondary to acute tubular necrosis with nausea and vomiting and diarrhea continue IV fluid resuscitation repeat CMP in the next 24 hours. 7. Vitamin D deficiency. Continue vitamin D supplement. 8. Anemia. Patient will need workup as an outpatient. 9. DVT prophylaxis. Continue patient on heparin drip. 10. GI prophylaxis. Continue patient on Protonix 40 mg IV push every 24 hours. 11. Admitted to inpatient. Estimate a length of stay 2 midnights. 12. Patient is full code.
[2019-02-17] MEDS: MIRTAZAPINE 15 MG TAB PO SCH ×2 (17:07→17:09)
[2019-02-17 17:14] LABS: Glucose,Whole Blood 74 mg/dL (75-99)
[2019-02-17 20:34] LABS: Glucose,Whole Blood 171 mg/dL (75-99)
[2019-02-17] MEDS ORDERED: MONTELUKAST 10 MG TAB PO SCH (21:00)
[2019-02-17] MEDS ORDERED: BENZOCAINE/MENTHOL LOZENG 1 EACH LOZENGE MUCOUS MEM PRN (22:12)
[2019-02-18] MEDS: NITROGLYCERIN OINT 1 INCH/GM PACKET TOPICAL SCH ×3 (00:50→11:38)
[2019-02-18] MEDS: HEPARIN SOD,PORK IN 0.45% NACL 25,000 UNIT in 0.45% NACL 1 250ML.BAG IV SCH (00:50)
[2019-02-18] MEDS: D5-0.45% NACL WITH KCL 20MEQ/L 1,000 ML IV SCH (04:00)
[2019-02-18 05:46] LABS: Basophils # (A) 0.1 k/uL (0-0.2); Basophils % (A) 1 %; Eosinophils # (A) 0.1 k/uL (0-0.7); Eosinophils % (A) 2 %; HCT 32.1 % (34.0-46.0); HGB 9.8 gm/dL (11.4-16.0); Hypochromasia Slight; Lymphocytes # (A) 1.5 k/uL (1.0-4.8); Lymphocytes % (A) 21 %; MCH 28.3 pg (25.0-35.0); MCHC 30.4 g/dL (31.0-37.0); MCV 92.9 fL (80.0-100.0); Mean Platelet Volume 9.7; Monocytes # (A) 0.3 k/uL (0-1.0); Monocytes % (A) 4 %; Neutrophils # (A) 5.2 k/uL (1.3-7.7); Neutrophils % (A) 72 %; Platelet Count 389 k/uL (150-450); RBC 3.46 m/uL (3.80-5.40); RDW 14.8 % (11.5-15.5); WBC 7.2 k/uL (3.8-10.6)
[2019-02-18 06:20] LABS: Calcium 8.3 mg/dL (8.4-10.2); Potassium 4.4 mmol/L (3.5-5.1)
[2019-02-18] MEDS: INSULIN ASPART (NovoLOG) 100 UNIT/ML VIAL SQ SCH ×4 (06:48→12:24)
[2019-02-18 07:07] LABS: Glucose,Whole Blood 378 mg/dL (75-99)
[2019-02-18] MEDS: ASPIRIN 81 MG PO SCH (08:02)
[2019-02-18] MEDS: PANTOPRAZOLE 40 MG/10 ML VIAL IV SCH (08:02)
[2019-02-18] MEDS: METOPROLOL TARTRATE 50 MG TAB PO SCH (08:02)
[2019-02-18] MEDS ORDERED: amLODIPine 5 MG TAB PO SCH (09:00)
[2019-02-18] MEDS ORDERED: ATORVASTATIN 20 MG TAB PO SCH (09:00)
[2019-02-18] MEDS ORDERED: LOSARTAN 50 MG TAB PO SCH (09:00)
[2019-02-18] MEDS ORDERED: CHOLECALCIFEROL 1,000 UNIT TAB PO SCH (09:00)
[2019-02-18] MEDS ORDERED: MULTIVITAMINS, THERA 1 EACH TAB PO SCH (09:00)
[2019-02-18] MEDS ORDERED: CYANOCOBALAMIN 500 MCG TAB PO SCH (09:00)
--- NOTE | 2019-02-18 10:10 | PN ---
PROGRESS NOTE Mrs Curry has come in with diabetic ketoacidosis. She also had a troponin elevation. Echo revealed good systolic function. However, I recommended coronary angiography, but patient absolutely refuses to have coronary angiography, Wishes to go home on medical therapy, insists on leaving on her own. However, I explained to her that we will treat her with the with medical therapy. Let her go home, see if she will see Dr. Hernandez and consider stress testing as an outpatient. Vitals are stable, no JVD. S1-S2 heard normally. Lungs revealed decent air entry. Abdomen and lower extremity exam unchanged. Patient can be discharged whenever it is okay with the admitting doctor on the current dose of medications. I added amlodipine 5 mg daily as well. MMODL / IJN: [id number] /
[2019-02-18 10:54] VITALS: BMI 20.7
--- NOTE | 2019-02-18 11:24 | P.PN ---
Subjective Progress Note Date: 02/18/19 On 02/18/2019, the patient's be of any chest pain. She is doing well. She has no specific complaints. She was transitioned to Lantus insulin. The blood sugar today is still somewhat elevated in the 300 range. With a mean she was given insulin and sized area coverage. Note that her blood sugars have been labile. She has dropped down to the 70s yesterday. She is having regular diet for now. She has been somewhat noncompliant to blood sugar management as her hemoglobin A1c is around 14 on outpatient evaluation. She is currently on NovoLog 6 units 3 times a day and Lantus 12 units which will be given on a daily basis. As for the cardiac status, the patient's troponin level has dropped. Completion Supervisor suggested cardiac catheterization. The patient herself is declining cath and she wants to go home. Creatinine is normalized is down to 0.97. BP is under good control. Pulse ox is 93% on room air. Echocardiogram shows an EF of around 60-65%, moderate MR, no significant pulmonary hypert ension. Objective - Vital Signs Vital signs: Vital Signs Temp 97.6 F 02/18/19 08:00 Pulse 67 02/18/19 11:00 Resp 14 02/18/19 11:00 BP 116/67 02/18/19 11:00 Pulse Ox 93 L 02/18/19 11:00 Intake & Output 02/17/19 02/18/19 02/18/19 18:59 06:59 18:59 Intake Total 1025 893.699 450 Output Total 0255 081 2023 Balance 25 563.699 -550 Weight 61.961 kg 61.961 kg Intake: IV 600 600 250 D5-0.45% NaCl with KCl 600 600 250 20Meq/l 1,000 ml @ 50 mls /hr IV .Q20H [facility] Rx#: [id number] Intake, IV Titration 163.699 Amount Heparin Sod,Pork in 0.45% 163.699 NaCl 25,000 unit In 0.45 % NaCl 1 250ml.bag @ 12 UNITS/KG/HR 6.586 mls/hr IV .Q24H [facility] Rx#: [id number] Oral 425 130 200 Output: Urine 1268 727 4043 Other: # Voids 2 # Bowel Movements 1 - Exam - Constitutional General appearance: no acute distress, thin - EENT Eyes: anicteric sclerae, EOMI, PERRLA, no ptosis, no scleral icterus, normal appearance ENT: hearing grossly normal, NA/AT, normal oropharynx, no thrush Ears: bilateral: normal - Neck Neck: no lymphadenopathy, normal ROM, no rigidity, no stridor, no thyromegaly Carotids: bilateral: upstroke normal Thyroid: bilateral: normal size - Respiratory Respiratory: bilateral: diminished, negative: dullness, rales, rhonchi, wheezing, prolonged expiration, prolonged inspiration - Cardiovascular Rhythm: regular Heart sounds: normal: S1, S2 Abnormal Heart Sounds: systolic murmur, no S3 Gallop, no S4 Gallop - Gastrointestinal General gastrointestinal: normal bowel sounds, soft, no tenderness, no umbilical hernia, no ventral hernia - Integumentary Integumentary: normal, normal turgor - Neurologic Neurologic: CNII-XII intact - Musculoskeletal Musculoskeletal: gait normal, generalized weakness, strength equal bilaterally - Psychiatric Psychiatric: A&O x's 3, appropriate affect, intact judgment & insight - Labs CBC & Chem 7: 02/18/19 04:59 02/18/19 04:59 Labs: Abnormal Lab Results - Last 24 Hours (Table) 02/17/19 02/17/19 02/17/19 Range/Units 09:57 11:57 17:03 RBC (3.80-5.40) m/uL Hgb (11.4-16.0) gm/dL Hct (34.0-46.0) % MCHC (31.0-37.0) g/dL APTT (22.0-30.0) sec Sodium (137-145) mmol/L BUN (7-17) mg/dL Glucose (74-99) mg/dL POC Glucose (mg/dL) 152 H 74 L (75-99) mg/dL Calcium (8.4-10.2) mg/dL Troponin I 1.770 H* (0.000-0.034) ng/mL 02/17/19 02/18/19 02/18/19 Range/Units 20:22 04:59 04:59 RBC 3.46 L (3.80-5.40) m/uL Hgb 9.8 L (11.4-16.0) gm/dL Hct 32.1 L (34.0-46.0) % MCHC 30.4 L (31.0-37.0) g/dL APTT 54.3 H (22.0-30.0) sec Sodium (137-145) mmol/L BUN (7-17) mg/dL Glucose (74-99) mg/dL POC Glucose (mg/dL) 171 H (75-99) mg/dL Calcium (8.4-10.2) mg/dL Troponin I (0.000-0.034) ng/mL 02/18/19 02/18/19 02/18/19 Range/Units 04:59 04:59 06:45 RBC (3.80-5.40) m/uL Hgb (11.4-16.0) gm/dL Hct (34.0-46.0) % MCHC (31.0-37.0) g/dL APTT (22.0-30.0) sec Sodium 134 L (137-145) mmol/L BUN 38 H (7-17) mg/dL Glucose 331 H (74-99) mg/dL POC Glucose (mg/dL) 378 H (75-99) mg/dL Calcium 8.3 L (8.4-10.2) mg/dL Troponin I 0.649 H* (0.000-0.034) ng/mL Assessment and Plan Plan: 1 DKA in a patient with type 1 diabetes mellitus, recovered. She is maintained on Lantus insulin outpatient basis in addition to her Humalog sliding scale coverage. The patient was taken Lantus insulin 12 units at bedtime and NovoLog according to scale and 6 units every before meals, 3 times a day. overall blood sugars reportedly controlled on outpatient basis with elevated HbA1c. 2 elevation troponin without any chest pain. EKG abnormalities are present with some ST segment changes and Q waves. This could be an indication of an old i nfarct. Troponin peaked at 1.7. troponin dropped down to 0.69. Cardiac intervention was recommended by cardiology. Patient declined. Echocardiogram shows a preserved LV function with some moderate MR. 3 coronary artery disease with previous stenting of PDA branch of RCA in 2010 maintain on aspirin on outpatient basis 4 hypertension 5 hyperlipidemia 6 narcolepsy, followed up with the sleep center and the patient does not take any form of stimulant treatment for now 7 acute lactic acidosis, improving 8 acute kidney injury , recovered 9 remote history of blood clots in the lower extremities, currently on no anticoagulants Plan Provide diabetic carbohydrate consistent diet today Lantus 12 units this morning along with Humalog 6 units with meals and a sliding scale coverage. In fact, after having a discussion with the patient, it seems that the patient is doing various regimens and she is mainly lying on sliding scale coverage and she is not taking her Lantus consistently. She is very much convinced that she can do her own dosing based on her sugars. I would leave this insulin coverage management to her primary care physician. echocardiogram was noted Disontinued IV heparin Continue aspirin Cath was recommended and declined by patient Possible home today. Awaiting PCP
[2019-02-18 11:52] LABS: Glucose,Whole Blood 409 mg/dL (75-99)
--- NOTE | 2019-02-18 11:57 | CDI ---
Documentation Clarification Form Date: 02/18/2019 11:50:43 AM From: Alisa Rothman CCS, CCDS Admit Date: 02/16/2019 09:42:00 PM Patient Name: Michelle Curry Visit Number: [id number] Discharge Date: ATTENTION: The Clinical Documentation Specialists (CDI) and [facility] Coding Staff appreciate your assistance in clarifying documentation. Please respond to the clarification below the line at the bottom and electronically sign. The CDI & [facility] Coding staff will review the response and follow-up if needed. Please note: Queries are made part of the Legal Health Record. If you have any questions, please contact the author of this message via ITS. Dr. Mary Heath: A diagnosis of anemia lacks specificity to accurately reflect your patients severity of condition and clarification is needed. History/Risk Factors: IDDM I, poorly controlled. Hypertension & Hypertensive cardiovascular disease, Diabetic polyneuropathy, Vit D deficiency & Anemia. Clinical indicators: Presented with abdominal pain, vomiting & diarrhea, weight loss, not controlling her diabetes. Diagnosed with DKA & NSTEMI. Hemoglobin: 11.7, 9.8* Hematocrit: 41.0, 31.0* Treatment: IV fluid bolus x2, IV Heparin drip, IV fluid 100, IV insulin, IV Kcl In order to capture the severity of condition, please clarify the type of anemia and etiology if known: Acute blood loss anemia Acute on chronic blood loss anemia Chronic blood loss anemia Iron deficiency anemia Hemolytic anemia Drug induced anemia Nutritional anemia Unable to determine Other, please specify (Last Revision: November 2016) chronic blood loss anemia MTDD
[2019-02-18 12:08] VITALS: BP 100/54; PULSE 64; RESP 12; TEMP 97.8
--- NOTE | 2019-02-18 13:54 | P.DS ---
Providers Date of admission: 02/16/19 21:42 Expected date of discharge: 02/18/19 Attending physician: Mary Heath Consults: 02/16/19 21:42 Consult Physician Routine Consulting Provider: Kim Causey Consult Reason/Comments: icu Do you want consulting provider notified?: Yes Consult Physician Urgent Consulting Provider: Lidia Milligan Consult Reason/Comments: elevTrop Do you want consulting provider notified?: Yes Primary care physician: Mary Heath Hospital Course: This is a 69-year-old -[place] female one of my patient with a previous medical history significant for diabetes mellitus type 1 with diabetic polyneuropathy, hypertension and hypertensive cardiovascular disease with left ventricular hypertrophy, CAD status post PCI of the PDA off the RCA back in 2010, history of DVT in lower extremity, history of narcolepsy, significant weight loss over the last few months since her with metastatic lung cancer, and she had lost quite a bit of weight and not controlling her diabetes very well her hemoglobin A1c is around 14%, patient stated that she was eating 3 slices of pizza yesterday and developed to have significant abdominal pain ass ociated with multiple episode of vomiting and diarrhea and the patient was brought to the emergency department by family member due to the fact that the patient was quite sick and she was found to have a diabetic ketoacidosis with a blood glucose level of greater than 900, patient was started on insulin drip and she was started on IV fluid resuscitation she was admitted to the intensive care unit, she was seen in consultation by cardiology as well as by pulmonary medicine as the patient EKG did show some subtle changes in the anterior leads with reciprocal changes, troponin initially was slightly elevated and peaked at 1.7 patient was placed on heparin drip as well as aspirin and she was placed on beta blockers and statin, the plan is to do an echocardiogram, patient's anion gap was closed and she was switched from insulin drip to Lantus 12 units in the morning along with the Humalog 6 units before each meal along with a sliding scale insulin. 02/18:Echocardiogram shows an EF of around 60-65%, moderate MR, no significant pulmonary hypertension. Etiology is offered the patient heart catheterization for tomorrow but she is declining. She is agreeable to follow-up with Dr. Hernandez. Patient's blood sugar at the time of this evaluation is 409. Patient is upset because the Lantus was not given to her at her normal time and she was refusing additional NovoLog. Patient has been seen by Dr. Causey and cleared for discharge as well. Patient complains of nausea without vomiting. She did take Tums this morning. Patient states that she thinks she is overmedicated regarding insulins. Patient will be placed on her home medication regime. Patient will be discharged home today in stable condition. Discharge diagnoses: 1. Diabetic ketoacidosis. 2. Poorly controlled diabetes mellitus type 1. 3. Non-ST elevation CA. 4. Hypertension and hypertensive cardiovascular disease. 5. Diabetic polyneuropathy. 6. Acute kidney injury secondary to acute tubular necrosis with nausea and vomiting and diarrhea. 7. Vitamin D deficiency. 8. Anemia of chronic disease. 9. Chronic kidney disease stage 3. Discharge plan: home Impression and plan of care have been directed as dictated by the signing physician. Faith Camarillo nurse practitioner acting as scribe for signing physician. Patient Condition at Discharge: Good Plan - Discharge Summary Discharge Rx Participant: No New Discharge Prescriptions: New Nitroglycerin Sl Tabs [Nitrostat] 0.4 mg SUBLINGUAL Q5M PRN #25 tab PRN Reason: Chest Pain Continue Aspirin 81 mg PO HS Insulin Aspart [NovoLOG] See Protocol SQ ACHS PRN PRN Reason: INSULIN SCALE Insulin Glargine [Lantus] 12 unit SQ HS PRN PRN Reason: Blood Sugar - High Multivit with Calcium,Iron,Min [Women's Multivitamin] 1 tab PO DAILY Cholecalciferol [Vitamin D3 (25 Mcg = 1000 Iu)] 1,000 unit PO DAILY Montelukast Sodium [Singulair] 10 mg PO HS amLODIPine [Norvasc] 5 mg PO DAILY INSULIN ASPART (NovoLOG) [NovoLOG (formulary)] 6 unit SQ AC-TID Cyanocobalamin [Vitamin B-12] 500 mcg PO DAILY Magnesium Oxide [Mag-Ox] 800 mg PO DAILY Rosuvastatin [Crestor] 10 mg PO DAILY Chlorthalidone [Hygroton] 25 mg PO DIRECTED Benzocaine/Menthol Lozeng [Cepacol lozenge] 1 lozenge MUCOUS MEM Q4HR PRN PRN Reason: Sore Throat Changed Losartan [Cozaar] 50 mg PO BID #0 Discontinued Metoprolol Tartrate [Lopressor] 25 mg PO BID Mirtazapine 7.5 mg PO W/SUPPER Discharge Medication List Aspirin 81 mg PO HS 01/20/16 [History] Insulin Aspart [NovoLOG] See Protocol SQ ACHS PRN 04/08/17 [History] Insulin Glargine [Lantus] 12 unit SQ HS PRN 09/05/17 [History] Multivit with Calcium,Iron,Min [Women's Multivitamin] 1 tab PO DAILY 09/09/18 [History] Cholecalciferol [Vitamin D3 (25 Mcg = 1000 Iu)] 1,000 unit PO DAILY 01/29/19 [History] Cyanocobalamin [Vitamin B-12] 500 mcg PO DAILY 01/30/19 [History] INSULIN ASPART (NovoLOG) [NovoLOG (formulary)] 6 unit SQ AC-TID 01/30/19 [His tory] Magnesium Oxide [Mag-Ox] 800 mg PO DAILY 01/30/19 [History] Montelukast Sodium [Singulair] 10 mg PO HS 01/30/19 [History] Rosuvastatin [Crestor] 10 mg PO DAILY 01/30/19 [History] amLODIPine [Norvasc] 5 mg PO DAILY 01/30/19 [History] Chlorthalidone [Hygroton] 25 mg PO DIRECTED 02/16/19 [History] Benzocaine/Menthol Lozeng [Cepacol lozenge] 1 lozenge MUCOUS MEM Q4HR PRN 02/17/19 [History] Losartan [Cozaar] 50 mg PO BID #0 02/18/19 [Rx] Nitroglycerin Sl Tabs [Nitrostat] 0.4 mg SUBLINGUAL Q5M PRN #25 tab 02/18/19 [Rx] Follow up Appointment(s)/Referral(s): Stefano Hernandez MD [STAFF PHYSICIAN] - 02/25/19 3:15 pm Mary Heath MD [Primary Care Provider] - 1 Week Patient Instructions/Handouts: Diabetic Ketoacidosis (DC), Acute Coronary Synd lexus (DC) Discharge Disposition: HOME SELF-CARE
[2019-02-18] MEDS ORDERED: HEPARIN SODIUM,PORCINE 5,000 UNIT/ML 1 ML VIAL SQ SCH (21:00)
[2019-02-19] MEDS ORDERED: PANTOPRAZOLE 40 MG TABLET PO SCH (07:30)
== END 2019-02-18 15:59 | disposition home or self-care (01) | DRG 637 ==
LOC: EC 18:57 → 2SICU 21:42
PROVIDERS: ADMIT Internal Medicine; ATTEND Internal Medicine
DX: E10.10 Type 1 diabetes mellitus with ketoacidosis without coma (principal); I21.4 Non-ST elevation (NSTEMI) myocardial infarction; N17.0 Acute kidney failure with tubular necrosis; D63.8 Anemia in other chronic diseases classified elsewhere; E10.22 Type 1 diabetes mellitus with diabetic chronic kidney disease; E10.42 Type 1 diabetes mellitus with diabetic polyneuropathy; E10.51 Type 1 diabetes mellitus with diabetic peripheral angiopathy without gangrene; I13.10 Hypertensive heart and chronic kidney disease without heart failure, with stage 1 through stage 4 chronic kidney disease, or unspecified chronic kidney disease; N18.3 Chronic kidney disease, stage 3 (moderate); E55.9 Vitamin D deficiency, unspecified; E78.5 Hyperlipidemia, unspecified; E86.0 Dehydration; I25.10 Atherosclerotic heart disease of native coronary artery without angina pectoris; K21.9 Gastro-esophageal reflux disease without esophagitis; G47.10 Hypersomnia, unspecified; G47.419 Narcolepsy without cataplexy; M19.90 Unspecified osteoarthritis, unspecified site; M54.31 Sciatica, right side; M54.32 Sciatica, left side; D50.0 Iron deficiency anemia secondary to blood loss (chronic); Z79.4 Long term (current) use of insulin; Z79.82 Long term (current) use of aspirin; Z79.899 Other long term (current) drug therapy; Z95.5 Presence of coronary angioplasty implant and graft; Z86.718 Personal history of other venous thrombosis and embolism; Z87.891 Personal history of nicotine dependence; Z90.710 Acquired absence of both cervix and uterus; Z88.5 Allergy status to narcotic agent; Z88.2 Allergy status to sulfonamides; Z88.8 Allergy status to other drugs, medicaments and biological substances; Z90.49 Acquired absence of other specified parts of digestive tract; Z98.51 Tubal ligation status; Z98.49 Cataract extraction status, unspecified eye; Z96.1 Presence of intraocular lens; Z91.19 Patient's noncompliance with other medical treatment and regimen; Z82.0 Family history of epilepsy and other diseases of the nervous system; Z82.49 Family history of ischemic heart disease and other diseases of the circulatory system; Z84.1 Family history of disorders of kidney and ureter; Z81.1 Family history of alcohol abuse and dependence
CPT/HCPCS: 36415; 71046; 80048; 80053; 80061; 81003; 82150; 82550; 82803; 82947; 83605; 83690; 83735; 84100; 84443; 84484; 85025; 85610; 85730; 93005; 93306; 96360; 96365; 96376; 99291

== ENCOUNTER 2019-03-06 08:43 | Inpatient (IN) | payer MEDICARE, OTHER ==
--- NOTE | 2019-03-06 08:56 | ED ---
General Adult HPI - General Stated complaint: Hypoglycemia Time Seen by Provider: 03/06/19 08:46 Source: patient, EMS, RN notes reviewed Mode of arrival: EMS Limitations: no limitations - History of Present Illness Initial comments: Patient is a pleasant 69-year-old female presenting to the emergency Department with hypoglycemic episode. Patient states she only snack last night and did not eat a full meal. Patient is unclear about events early this morning however states she feels much better at this time. EMS reports blood sugar of 40. They did provide glucose. Patient states she feels fine otherwise. No confusion. No weakness. Patient denies any pain. No recent illness. - Related Data Home Medications Medication Instructions Recorded Confirmed Aspirin 81 mg PO HS 01/20/16 03/06/19 Insulin Aspart [NovoLOG] See Protocol SQ ACHS PRN 04/08/17 03/06/19 Insulin Glargine [Lantus] 12 unit SQ HS 09/05/17 03/06/19 Multivit with Calcium,Iron,Min 1 tab PO DAILY 09/09/18 03/06/19 [Women's Multivitamin] Cholecalciferol [Vitamin D3 (25 1,000 unit PO DAILY 01/29/19 03/06/19 Mcg = 1000 Iu)] Cyanocobalamin [Vitamin B-12] 500 mcg PO DAILY 01/30/19 03/06/19 INSULIN ASPART (NovoLOG) [NovoLOG 6 unit SQ AC-TID 01/30/19 03/06/19 (formulary)] Magnesium Oxide [Mag-Ox] 800 mg PO DAILY 01/30/19 03/06/19 Montelukast Sodium [Singulair] 10 mg PO HS PRN 01/30/19 03/06/19 Rosuvastatin [Crestor] 10 mg PO DAILY 01/30/19 03/06/19 amLODIPine [Norvasc] 5 mg PO DAILY 01/30/19 03/06/19 Benzocaine/Menthol Lozeng [Cepacol 1 lozenge MUCOUS MEM Q4HR PRN 02/17/19 03/06/19 lozenge] Biotin 5 mg PO DAILY 03/06/19 03/06/19 Furosemide [Lasix] 20 mg PO DAILY 03/06/19 03/06/19 Mirtazapine 7.5 mg PO HS 03/06/19 03/06/19 Previous Rx's Medication Instructions Recorded Losartan [Cozaar] 50 mg PO BID #0 02/18/19 Allergies Allergy/AdvReac Type Severity Reaction Status Date / Time morphine AdvReac PASSES OUT Verified 03/06/19 08:53 nitroglycerin AdvReac PASSES OUT Verified 03/06/19 08:53 Sulfa (Sulfonamide AdvReac Itching Verified 03/06/19 08:53 Antibiotics) Review of Systems ROS Statement: Those systems with pertinent positive or pertinent negative responses have been documented in the HPI. ROS Other: All systems not noted in ROS Statement are negative. Constitutional: Denies: fever Eyes: Denies: eye pain ENT: Denies: ear pain Respiratory: Denies: cough Cardiovascular: Denies: chest pain Endocrine: Denies: fatigue Gastrointestinal: Denies: abdominal pain Genitourinary: Denies: dysuria Musculoskeletal: Denies: back pain Skin: Denies: rash Neurological: Reports: as per HPI Past Medical History Past Medical History: Coronary Artery Disease (CAD), Diabetes Mellitus, Deep Vein Thrombosis (DVT), GERD/Reflux, Hyperlipidemia, Hypertension, Osteoarthritis (OA), Vascular Disorder Additional Past Medical History / Comment(s): IDDM type I with diabetic neuropathy, narcolepsy, DVTs L lower extremity, vertigo occasionally, low back pian with bilateral sciatica, PAD, pneumothorax when pt was in her 20s with chest tube, constipation, bronchitis. History of Any Multi-Drug Resistant Organisms: None Reported Past Surgical History: Appendectomy, Cholecystectomy, Heart Catheterization With Stent, Hysterectomy, Tubal Ligation Additional Past Surgical History / Comment(s): PCI/stent, ectopic pregnancies with eventual total hysterectomy, EGD, colonoscopy, L breast biopsy-benign, bilateral carpal tunnel release, bilateral eyes laser surgery/lens. Past Anesthesia/Blood Transfusion Reactions: Previous Problems w/ Anesthesia, Postoperative Nausea & Vomiting (PONV) Additional Past Anesthesia/Blood Transfusion Reaction / Comment(s): PT STATES HER AND HER FAMILY HAVE DIFFICULTY WAKING UP Date of Last Stent Placement:: Past Psychological History: No Psychological Hx Reported Additional Psychological History / Comment(s): Pt resides alone. Her spouse in September 2018. She states she still feels "stress" d/t her spouses but denies depression/thoughts or plans of suicide. She owns a cane/ walker but has not needed to use them lately. She does not drive, her grandson or son take her to appts. Smoking Status: Former smoker Past Alcohol Use History: None Reported Additional Past Alcohol Use History / Comment(s): STARTED SMOKING AT AGE 12, QUIT AT AGE 26 SMOKED 1 PPD Past Drug Use History: None Reported - Past Family History Mother Family Medical History: Hypertension, Seizure Disorder Additional Family Medical History / Comment(s): Mother at age 75 Father Family Medical History: Renal Disease Additional Family Medical History / Comment(s): Father at age 58 from acute renal failure and he was an alcoholic. Son(s) Family Medical History: No Reported History Additional Family Medical History / Comment(s): Patient has 2 sons with no major medical problems. General Exam Limitations: no limitations General appearance: alert, in no apparent distress Head exam: Present: normocephalic Eye exam: Present: normal appearance, PERRL ENT exam: Present: normal oropharynx Neck exam: Present: normal inspection Respiratory exam: Present: normal lung sounds bilaterally Cardiovascular Exam: Present: regular rate, normal rhythm GI/Abdominal exam: Present: soft. Absent: tenderness Extremities exam: Present: pedal edema (Trace bilateral). Absent: calf tenderness Neurological exam: Present: alert, oriented X3, CN II-XII intact. Absent: motor sensory deficit Expanded Neurological exam: Present: protecting the airway Patient oriented to: Present: person, place, time Speech: Present: fluid speech Motor strength exam: RUE: 5, LUE: 5, RLE: 5, LLE: 5 Psychiatric exam: Present: normal affect, normal mood Skin exam: Present: normal color Course Vital Signs 03/06/19 03/06/19 03/06/19 08:53 09:11 10:04 Temperature 97.6 F Pulse Rate 104 H 98 110 H Respiratory 20 20 20 Rate Blood Pressure 165/116 131/94 O2 Sat by Pulse 100 99 98 Oximetry 03/06/19 11:22 Temperature Pulse Rate 110 H Respiratory 20 Rate Blood Pressure 98/62 O2 Sat by Pulse 97 Oximetry - Reevaluation(s) Reevaluation #1: 03/06/19 10:21 Repeat EKG shows undetermined rhythm, appearance of atrial fibrillation with a rate of 111. QRS 98. QT 398. QTC 541. Left axis. Septal Q waves. No acute ST change. EKG Findings - EKG Comments: EKG Findings:: Irregular narrow complex rhythm with a rate of 103. QRS 96. QT 408. QTC 534. Normal axis. Septal Q waves. T-wave inversion in inferior. Medical Decision Making - Medical Decision Making Patient reevaluated and resting comfortably in bed. Patient does not believe she has history of atrial fibrillation. Family agrees. Case was also discussed briefly with Dr. Rosario and who also does not believe patient has history of atrial fibrillation. Case was discussed with Dr. Mahajan, who will admit covering for Dr. Heath. - Lab Data Result diagrams: 03/06/19 09:05 03/06/19 09:05 Lab Results 03/06/19 03/06/19 03/06/19 Range/Units 08:59 09:05 09:05 WBC 3.3 L (3.8-10.6) k/uL RBC 3.84 (3.80-5.40) m/uL Hgb 11.1 L (11.4-16.0) gm/dL Hct 35.4 (34.0-46.0) % MCV 92.2 (80.0-100.0) fL MCH 28.8 (25.0-35.0) pg MCHC 31.3 (31.0-37.0) g/dL RDW 14.4 (11.5-15.5) % Plt Count 275 (150-450) k/uL Neutrophils % 51 % Lymphocytes % 34 % Monocytes % 6 % Eosinophils % 3 % Basophils % 3 % Neutrophils # 1.7 (1.3-7.7) k/uL Lymphocytes # 1.1 (1.0-4.8) k/uL Monocytes # 0.2 (0-1.0) k/uL Eosinophils # 0.1 (0-0.7) k/uL Basophils # 0.1 (0-0.2) k/uL Hypochromasia Slight PT (9.0-12.0) sec INR (<1.2) APTT (22.0-30.0) sec Sodium 141 (137-145) mmol/L Potassium 3.5 (3.5-5.1) mmol/L Chloride 103 (98-107) mmol/L Carbon Dioxide 30 (22-30) mmol/L Anion Gap 8 mmol/L BUN 22 H (7-17) mg/dL Creatinine 0.61 (0.52-1.04) mg/dL Est GFR (CKD-EPI)AfAm >90 (>60 ml/min/1.73 sqM) Est GFR (CKD-EPI)NonAf >90 (>60 ml/min/1.73 sqM) Glucose 116 H (74-99) mg/dL POC Glucose (mg/dL) 133 H (75-99) mg/dL POC Glu Cutter And Edge Trimmer ID May Plasma Lactic Acid Celestino (0.7-2.0) mmol/L Calcium 9.3 (8.4-10.2) mg/dL Magnesium 1.9 (1.6-2.3) mg/dL Total Bilirubin 0.6 (0.2-1.3) mg/dL AST 30 (14-36) U/L ALT 17 (4-34) U/L Alkaline Phosphatase 109 (38-126) U/L Troponin I (0.000-0.034) ng/mL Total Protein 7.0 (6.3-8.2) g/dL Albumin 3.8 (3.5-5.0) g/dL Urine Color Urine Appearance (Clear) Urine pH (5.0-8.0) Ur Specific Mildred (1.001-1.035) Urine Protein (Negative) Urine Glucose (UA) (Negative) Urine Ketones (Negative) Urine Blood (Negative) Urine Nitrite (Negative) Urine Bilirubin (Negative) Urine Urobilinogen (<2.0) mg/dL Ur Leukocyte Esterase (Negative) Urine RBC (0-5) /hpf Urine WBC (0-5) /hpf Urine Mucus (None) /hpf 03/06/19 03/06/19 03/06/19 Range/Units 09:05 09:05 09:05 WBC (3.8-10.6) k/uL RBC (3.80-5.40) m/uL Hgb (11.4-16.0) gm/dL Hct (34.0-46.0) % MCV (80.0-100.0) fL MCH (25.0-35.0) pg MCHC (31.0-37.0) g/dL RDW (11.5-15.5) % Plt Count (150-450) k/uL Neutrophils % % Lymphocytes % % Monocytes % % Eosinophils % % Basophils % % Neutrophils # (1.3-7.7) k/uL Lymphocytes # (1.0-4.8) k/uL Monocytes # (0-1.0) k/uL Eosinophils # (0-0.7) k/uL Basophils # (0-0.2) k/uL Hypochromasia PT 9.4 (9.0-12.0) sec INR 0.9 (<1.2) APTT 18.0 L (22.0-30.0) sec Sodium (137-145) mmol/L Potassium (3.5-5.1) mmol/L Chloride (98-107) mmol/L Carbon Dioxide (22-30) mmol/L Anion Gap mmol/L BUN (7-17) mg/dL Creatinine (0.52-1.04) mg/dL Est GFR (CKD-EPI)AfAm (>60 ml/min/1.73 sqM) Est GFR (CKD-EPI)NonAf (>60 ml/min/1.73 sqM) Glucose (74-99) mg/dL POC Glucose (mg/dL) (75-99) mg/dL POC Glu C[employer] And Edge Trimmer ID Plasma Lactic Acid Celestino 2.3 H* (0.7-2.0) mmol/L Calcium (8.4-10.2) mg/dL Magnesium (1.6-2.3) mg/dL Total Bilirubin (0.2-1.3) mg/dL AST (14-36) U/L ALT (4-34) U/L Alkaline Phosphatase (38-126) U/L Troponin I <0.012 (0.000-0.034) ng/mL Total Protein (6.3-8.2) g/dL Albumin (3.5-5.0) g/dL Urine Color Urine Appearance (Clear) Urine pH (5.0-8.0) Ur Specific Mildred (1.001-1.035) Urine Protein (Negative) Urine Glucose (UA) (Negative) Urine Ketones (Negative) Urine Blood (Negative) Urine Nitrite (Negative) Urine Bilirubin (Negative) Urine Urobilinogen (<2.0) mg/dL Ur Leukocyte Esterase (Negative) Urine RBC (0-5) /hpf Urine WBC (0-5) /hpf Urine Mucus (None) /hpf 03/06/19 03/06/19 03/06/19 Range/Units 09:10 10:03 11:21 WBC (3.8-10.6) k/uL RBC (3.80-5.40) m/uL Hgb (11.4-16.0) gm/dL Hct (34.0-46.0) % MCV (80.0-100.0) fL MCH (25.0-35.0) pg MCHC (31.0-37.0) g/dL RDW (11.5-15.5) % Plt Count (150-450) k/uL Neutrophils % % Lymphocytes % % Monocytes % % Eosinophils % % Basophils % % Neutrophils # (1.3-7.7) k/uL Lymphocytes # (1.0-4.8) k/uL Monocytes # (0-1.0) k/uL Eosinophils # (0-0.7) k/uL Basophils # (0-0.2) k/uL Hypochromasia PT (9.0-12.0) sec INR (<1.2) APTT (22.0-30.0) sec Sodium (137-145) mmol/L Potassium (3.5-5.1) mmol/L Chloride (98-107) mmol/L Carbon Dioxide (22-30) mmol/L Anion Gap mmol/L BUN (7-17) mg/dL Creatinine (0.52-1.04) mg/dL Est GFR (CKD-EPI)AfAm (>60 ml/min/1.73 sqM) Est GFR (CKD-EPI)NonAf (>60 ml/min/1.73 sqM) Glucose (74-99) mg/dL POC Glucose (mg/dL) 132 H 190 H (75-99) mg/dL POC Glu C[employer] And Edge Trimmer ID Mongeau, Ziggy Mongeau, Ziggy Plasma Lactic Acid Celestino (0.7-2.0) mmol/L Calcium (8.4-10.2) mg/dL Magnesium (1.6-2.3) mg/dL Total Bilirubin (0.2-1.3) mg/dL AST (14-36) U/L ALT (4-34) U/L Alkaline Phosphatase (38-126) U/L Troponin I (0.000-0.034) ng/mL Total Protein (6.3-8.2) g/dL Albumin (3.5-5.0) g/dL Urine Color Light Yellow Urine Appearance Clear (Clear) Urine pH 7.5 (5.0-8.0) Ur Specific Mildred 1.008 (1.001-1.035) Urine Protein Trace H (Negative) Urine Glucose (UA) 2+ H (Negative) Urine Ketones Negative (Negative) Urine Blood Negative (Negative) Urine Nitrite Positive H (Negative) Urine Bilirubin Negative (Negative) Urine Urobilinogen <2.0 (<2.0) mg/dL Ur Leukocyte Esterase Negative (Negative) Urine RBC 1 (0-5) /hpf Urine WBC 7 H (0-5) /hpf Urine Mucus Rare H (None) /hpf 03/06/19 Range/Units 12:50 WBC (3.8-10.6) k/uL RBC (3.80-5.40) m/uL Hgb (11.4-16.0) gm/dL Hct (34.0-46.0) % MCV (80.0-100.0) fL MCH (25.0-35.0) pg MCHC (31.0-37.0) g/dL RDW (11.5-15.5) % Plt Count (150-450) k/uL Neutrophils % % Lymphocytes % % Monocytes % % Eosinophils % % Basophils % % Neutrophils # (1.3-7.7) k/uL Lymphocytes # (1.0-4.8) k/uL Monocytes # (0-1.0) k/uL Eosinophils # (0-0.7) k/uL Basophils # (0-0.2) k/uL Hypochromasia PT (9.0-12.0) sec INR (<1.2) APTT (22.0-30.0) sec Sodium (137-145) mmol/L Potassium (3.5-5.1) mmol/L Chloride (98-107) mmol/L Carbon Dioxide (22-30) mmol/L Anion Gap mmol/L BUN (7-17) mg/dL Creatinine (0.52-1.04) mg/dL Est GFR (CKD-EPI)AfAm (>60 ml/min/1.73 sqM) Est GFR (CKD-EPI)NonAf (>60 ml/min/1.73 sqM) Glucose (74-99) mg/dL POC Glucose (mg/dL) 271 H (75-99) mg/dL POC Glu C[employer] And Edge Trimmer ID Ziggy Melendez Plasma Lactic Acid Celestino (0.7-2.0) mmol/L Calcium (8.4-10.2) mg/dL Magnesium (1.6-2.3) mg/dL Total Bilirubin (0.2-1.3) mg/dL AST (14-36) U/L ALT (4-34) U/L Alkaline Phosphatase (38-126) U/L Troponin I (0.000-0.034) ng/mL Total Protein (6.3-8.2) g/dL Albumin (3.5-5.0) g/dL Urine Color Urine Appearance (Clear) Urine pH (5.0-8.0) Ur Specific Mildred (1.001-1.035) Urine Protein (Negative) Urine Glucose (UA) (Negative) Urine Ketones (Negative) Urine Blood (Negative) Urine Nitrite (Negative) Urine Bilirubin (Negative) Urine Urobilinogen (<2.0) mg/dL Ur Leukocyte Esterase (Negative) Urine RBC (0-5) /hpf Urine WBC (0-5) /hpf Urine Mucus (None) /hpf - Radiology Data Radiology results: image reviewed Critical Care Time Critical Care Time: Yes Total Critical Care Time: 31 Disposition Clinical Impression: Atrial fibrillation with RVR Disposition: ADMITTED IP TO THIS HOSP Is patient prescribed a controlled substance at d/c from ED?: No Referrals: Mary Heath MD [Primary Care Provider] - 1-2 days Decision Time: 12:55
[2019-03-06 09:02] LABS: Glucose,Whole Blood 133 mg/dL (75-99)
[2019-03-06 09:44] LABS: Basophils # (A) 0.1 k/uL (0-0.2); Basophils % (A) 3 %; Eosinophils # (A) 0.1 k/uL (0-0.7); Eosinophils % (A) 3 %; HCT 35.4 % (34.0-46.0); HGB 11.1 gm/dL (11.4-16.0); Hypochromasia Slight; Lymphocytes # (A) 1.1 k/uL (1.0-4.8); Lymphocytes % (A) 34 %; MCH 28.8 pg (25.0-35.0); MCHC 31.3 g/dL (31.0-37.0); MCV 92.2 fL (80.0-100.0); Mean Platelet Volume 8.7; Monocytes # (A) 0.2 k/uL (0-1.0); Monocytes % (A) 6 %; Neutrophils # (A) 1.7 k/uL (1.3-7.7); Neutrophils % (A) 51 %; Platelet Count 275 k/uL (150-450); RBC 3.84 m/uL (3.80-5.40); RDW 14.4 % (11.5-15.5); WBC 3.3 k/uL (3.8-10.6)
[2019-03-06 09:54] LABS: ALT 17 U/L (4-34); AST 30 U/L (14-36); African American GFR (CKD) >90 (>60 ml/min/1.73 sqM); Albumin 3.8 g/dL (3.5-5.0); Alkaline Phosphatase 109 U/L (38-126); Anion Gap 8 mmol/L; Blood Urea Nitrogen 22 mg/dL (7-17); Calcium 9.3 mg/dL (8.4-10.2); Carbon Dioxide 30 mmol/L (22-30); Chloride 103 mmol/L (98-107); Glucose 116 mg/dL (74-99); Magnesium 1.9 mg/dL (1.6-2.3); Non-African American GFR(CKD) >90 (>60 ml/min/1.73 sqM); Potassium 3.5 mmol/L (3.5-5.1); Sodium 141 mmol/L (137-145); Total Bilirubin 0.6 mg/dL (0.2-1.3)
--- NOTE | 2019-03-06 10:03 | XR ---
EXAMINATION TYPE: XR chest 2V DATE OF EXAM: 03/06/2019 COMPARISON: 02/16/2019 TECHNIQUE: PA and lateral views submitted. HISTORY: Hyperglycemia and weakness FINDINGS: The lungs are clear and there is no pneumothorax, pleural effusion, or focal pneumonia. Heart size is mildly enlarged. No overt failure. Arthropathy shoulders. Hypertrophic and degenerative changes sp ine. Hyperinflation suggests COPD. IMPRESSION: 1. Mild cardiomegaly correlate for mild COPD..
[2019-03-06 10:04] LABS: Glucose,Whole Blood 132 mg/dL (75-99)
[2019-03-06 10:08] LABS: INR 0.9 (<1.2); Prothrombin Time 9.4 sec (9.0-12.0)
[2019-03-06 10:20] LABS: Appearance,Urine Clear (Clear); Bilirubin,Urine Negative (Negative); Blood,Urine Negative (Negative); Color,Urine Light Yellow; Glucose,Urine (UA) 2+ (Negative); Ketones,Urine Negative (Negative); Leukocyte Esterase,Urine Negative (Negative); Mucus,Urine Rare /hpf; Nitrite,Urine Positive (Negative); PH, Urine 7.5 (5.0-8.0); Protein,Urine Trace (Negative); RBC,Urine 1 /hpf (0-5); Specific Gravity,Urine 1.008 (1.001-1.035); Urobilinogen,Urine <2.0 mg/dL (<2.0); WBC,Urine 7 /hpf (0-5)
[2019-03-06 11:23] LABS: Glucose,Whole Blood 190 mg/dL (75-99)
[2019-03-06 12:51] LABS: Glucose,Whole Blood 271 mg/dL (75-99)
[2019-03-06] MEDS ORDERED: HEPARIN SODIUM,PORCINE 5,000 UNIT/ML 1 ML VIAL IV PRN (12:53)
[2019-03-06] MEDS ORDERED: HEPARIN SODIUM,PORCINE 5,000 UNIT/ML 1 ML VIAL IV ONE (12:53)
[2019-03-06] MEDS ORDERED: NALOXONE 0.4 MG/ML 1 ML VIAL IV PRN (12:55)
[2019-03-06] MEDS: INSULIN ASPART (NovoLOG) 100 UNIT/ML VIAL SQ SCH ×2 (13:04→22:17)
[2019-03-06] MEDS: HEPARIN SOD,PORK IN 0.45% NACL 25,000 UNIT in 0.45% NACL 1 250ML.BAG IV SCH (13:06)
[2019-03-06] MEDS: DILTIAZEM 125 MG in SODIUM CHLORIDE 0.9% 100 ML IV SCH (13:29)
[2019-03-06 16:24] LABS: Glucose,Whole Blood 268 mg/dL (75-99)
[2019-03-06 17:45] LABS: Glucose,Whole Blood 305 mg/dL (75-99)
[2019-03-06] MEDS ORDERED: INSULIN ASPART (NovoLOG) 100 UNIT/ML VIAL SQ ONE (18:00)
[2019-03-06] MEDS: SODIUM CHLORIDE 0.9% 1,000 ML IV SCH (18:09)
[2019-03-06] MEDS ORDERED: INSULIN DETEMIR (LEVEMIR) 100 UNIT/ML SYR SQ SCH (21:00)
[2019-03-06 21:09] LABS: Glucose,Whole Blood 275 mg/dL (75-99)
[2019-03-06] MEDS: LOSARTAN 50 MG TAB PO SCH (22:16)
[2019-03-06] MEDS: MIRTAZAPINE 15 MG TAB PO SCH (22:16)
[2019-03-07 06:28] LABS: Glucose,Whole Blood 53 mg/dL (75-99)
[2019-03-07 06:52] LABS: Glucose,Whole Blood 75 mg/dL (75-99)
[2019-03-07] MEDS: INSULIN ASPART (NovoLOG) 100 UNIT/ML VIAL SQ SCH ×4 (06:54→20:08)
[2019-03-07 07:28] LABS: Basophils % (A) 1 %; Eosinophils # (A) 0.1 k/uL (0-0.7); Eosinophils % (A) 2 %; HCT 33.4 % (34.0-46.0); HGB 10.3 gm/dL (11.4-16.0); Hypochromasia Slight; Lymphocytes # (A) 1.7 k/uL (1.0-4.8); Lymphocytes % (A) 38 %; MCH 28.5 pg (25.0-35.0); MCHC 30.8 g/dL (31.0-37.0); MCV 92.8 fL (80.0-100.0); Mean Platelet Volume 8.6; Monocytes # (A) 0.3 k/uL (0-1.0); Monocytes % (A) 7 %; Neutrophils # (A) 2.2 k/uL (1.3-7.7); Neutrophils % (A) 48 %; Platelet Count 254 k/uL (150-450); RDW 14.7 % (11.5-15.5); WBC 4.6 k/uL (3.8-10.6)
[2019-03-07 07:51] LABS: Prothrombin Time 10.2 sec (9.0-12.0)
[2019-03-07] MEDS ORDERED: amLODIPine 5 MG TAB PO SCH (09:00)
[2019-03-07] MEDS ORDERED: BENZOCAINE/MENTHOL LOZENG 1 EACH LOZENGE MUCOUS MEM PRN (09:14)
[2019-03-07] MEDS ORDERED: MONTELUKAST 10 MG TAB PO PRN (09:14)
[2019-03-07] MEDS: MAGNESIUM OXIDE 400 MG TAB PO SCH (09:25)
[2019-03-07] MEDS: ATORVASTATIN 20 MG TAB PO SCH (09:25)
[2019-03-07] MEDS: FUROSEMIDE 20 MG TAB PO SCH (09:25)
[2019-03-07] MEDS: LOSARTAN 50 MG TAB PO SCH ×2 (09:25→20:03)
[2019-03-07 11:26] LABS: African American GFR (CKD) >90 (>60 ml/min/1.73 sqM); Anion Gap 5 mmol/L; Blood Urea Nitrogen 24 mg/dL (7-17); Carbon Dioxide 32 mmol/L (22-30); Chloride 101 mmol/L (98-107); Glucose 315 mg/dL (74-99); Non-African American GFR(CKD) 81 (>60 ml/min/1.73 sqM); Potassium 4.3 mmol/L (3.5-5.1); Sodium 138 mmol/L (137-145)
[2019-03-07 11:48] LABS: Glucose,Whole Blood 307 mg/dL (75-99)
[2019-03-07] MEDS: SODIUM CHLORIDE 0.9% 1,000 ML IV SCH (12:34)
[2019-03-07] MEDS: METOPROLOL TARTRATE 25 MG TAB PO SCH ×2 (12:35→20:03)
[2019-03-07 12:43] LABS: T4, Free (Free Thyroxine) 1.21 ng/dL (0.78-2.19)
--- NOTE | 2019-03-07 13:04 | P.HPIM ---
History of Present Illness H&P Date: 03/07/19 This is a 69-year-old -[place] Citizen female one of my patient with a previous medical history significant for diabetes mellitus type 1 with diabetic polyneuropathy, hypertension and hypertensive cardiovascular disease with left ventricular hypertrophy, CAD status post PCI of the PDA off the RCA back in 2010, history of DVT in lower extremity, history of narcolepsy, significant weight loss over the last few months since her with metastatic lung cancer, and she had lost quite a bit of weight and not controlling her diabetes very well her hemoglobin A1c is around 14% last admitted on 02/6019 for diabetic ketoacidosis and possible N STEMI. Patient was offered heart cath which she refused. Patient follows with Dr. Verde as outpatient. She comes to the ER yesterday with hypoglycemia. Patient was following with endocrinology Dr. Saldaña but stopped seeing him a few months ago and is trying to manage her insulin by herself. According to patient she did not eat her last meal and snack. She eats 6 times a day and takes insulin based on her blood sugars. She has a sliding scales that she follow sports for short-acting and long-acting insulin.. Patient is a poor historian EMS reported a blood sugar of 40. Patient has been following with primary care physician regarding lower extremity swelling for which medications were adjusted and patient was put on on Lasix. V itals in the ER patient had a temp 97.6 pulse 104 respiratory rate 20 blood pressure 167/116 EKG was concerning for atrial fibrillation. Patient denies any history of atrial fibrillation in the past. Labs from yesterday suggest hemoglobin of 11.1 sodium 141 potassium 3.5 BUN 22 creatinine 0.6 glucose of 116. Patient's hemoglobin has dropped by 1.2 days hemoglobin 10.3. Patient was initiated on Cardizem drip and heparin drip by ER. Cardiology was consulted. Patient's glucose improved after she was admitted with a high noted to be 305. This morning patient's blood sugar is 53. Echo from 02/17 suggest diastolic dysfunction and severe concentric left ventricular hypertrophy with EF 60-65%. Metoprolol initiated 25 mg twice a day patient currently on Cardizem that need to be tapered off Review of Systems Constitutional: Denies chills, Denies fever, Denies lethargy, Denies malaise, Denies poor appetite, Denies weakness, Denies weight loss Eyes: denies decreased vision, denies diplopia, denies discharge, denies pain Ears: deny: decreased hearing Ears, nose, mouth and throat: Denies dental pain, Denies headache, Denies nasal discharge, Denies nose pain Cardiovascular: Denies chest pain, Denies decreased exercise tolerance, Denies edema, Denies high blood pressure, endorses irregular heart beat, endorses palpitations, Denies paroxysmal nocturnal dyspnea, Denies rapid heart beat, Denies shortness of breath Respiratory: Denies congestion, Denies cough, Denies cough with sputum, Denies dyspnea, Denies home oxygen, Denies wheezing endorses bilateral lower extremity edema Gastrointestinal: Denies abdominal pain, Denies change in bowel habits, Denies coffee ground emesis, Denies early satiety, Denies excessive gas, Denies heartburn, Denies hematemesis, Denies hematochezia, Denies loss of appetite, Denies nausea, Denies vomiting Genitourinary: Denies dysuria, Denies flank pain, Denies kidney stones, Denies menorrhagia, Denies urgency, Denies urinary frequency Musculoskeletal: Denies gait dysfunction, Denies limitation of motion, Denies morning stiffness, Denies muscle cramps Integumentary: Denies rash, Denies wounds, Denies brittle nails, Denies change in hair/nails, Denies darkening of skin Neurological: Denies balance difficulties, Denies change in speech, Denies double vision, Denies gait dysfunction, Denies loss of vision, Denies motor disturbance, Denies numbness, Denies paralysis, Denies paresthesias, Denies seizures Psychiatric: Denies anxiety, Denies depression Endocrine: Denies excessive sweating, Denies excessive thirst, Denies high blood sugars, Denies palpitations Hematologic/Lymphatic: Denies easy bruising, Denies lymphadenopathy Past Medical History Past Medical History: Coronary Artery Disease (CAD), Diabetes Mellitus, Deep Vein Thrombosis (DVT), GERD/Reflux, Hyperlipidemia, Hypertension, Osteoarthritis (OA), Vascular Disorder Additional Past Medical History / Comment(s): IDDM type I with diabetic neuropathy, narcolepsy, DVTs L lower extremity, vertigo occasionally, low back pian with bilateral sciatica, PAD, pneumothorax when pt was in her 20s with chest tube, constipation, bronchitis. History of Any Multi-Drug Resistant Organisms: None Reported Past Surgical History: Appendectomy, Cholecystectomy, Heart Catheterization With Stent, Hysterectomy, Tubal Ligation Additional Past Surgical History / Comment(s): PCI/stent, ectopic pregnancies with eventual total hysterectomy, EGD, colonoscopy, L breast biopsy-benign, bilateral carpal tunnel release, bilateral eyes laser surgery/lens. Past Anesthesia/Blood Transfusion Reactions: Previous Problems w/ Anesthesia, Postoperative Nausea & Vomiting (PONV) Additional Past Anesthesia/Blood Transfusion Reaction / Comment(s): PT STATES HER AND HER FAMILY HAVE DIFFICULTY WAKING UP Date of Last Stent Placement:: Past Psychological History: No Psychological Hx Reported Additional Psychological History / Comment(s): Pt resides alone. Her spouse in September 2018. She states she still feels "stress" d/t her spouses but denies depression/thoughts or plans of suicide. She owns a cane/walker but has not needed to use them lately. She does not drive, her grandson or son take her to appts. Smoking Status: Former smoker Past Alcohol Use History: None Reported Additional Past Alcohol Use History / Comment(s): STARTED SMOKING AT AGE 12, QUIT AT AGE 26 SMOKED 1 PPD Past Drug Use History: None Reported - Past Family History Mother Family Medical History: Hypertension, Seizure Disorder Additional Family Medical History / Comment(s): Mother at age 75 Father Family Medical History: Renal Disease Additional Family Medical History / Comment(s): Father at age 58 from acute renal failure and he was an alcoholic. Son(s) Family Medical History: No Reported History Additional Family Medical History / Comment(s): Patient has 2 sons with no major medical problems. Medications and Allergies Home Medications Medication Instructions Recorded Confirmed Type Aspirin 81 mg PO HS 01/20/16 03/06/19 History Insulin Aspart [NovoLOG] See Protocol SQ ACHS PRN 04/08/17 03/06/19 History Insulin Glargine [Lantus] 12 unit SQ HS 09/05/17 03/06/19 History Multivit with Calcium,Iron,Min 1 tab PO DAILY 09/09/18 03/06/19 History [Women's Multivitamin] Cholecalciferol [Vitamin D3 (25 1,000 unit PO DAILY 01/29/19 03/06/19 History Mcg = 1000 Iu)] Cyanocobalamin [Vitamin B-12] 500 mcg PO DAILY 01/30/19 03/06/19 History INSULIN ASPART (NovoLOG) [NovoLOG 6 unit SQ AC-TID 01/30/19 03/06/19 History (formulary)] Magnesium Oxide [Mag-Ox] 800 mg PO DAILY 01/30/19 03/06/19 History Montelukast Sodium [Singulair] 10 mg PO HS PRN 01/30/19 03/06/19 History Rosuvastatin [Crestor] 10 mg PO DAILY 01/30/19 03/06/19 History amLODIPine [Norvasc] 5 mg PO DAILY 01/30/19 03/06/19 History Benzocaine/Menthol Lozeng [Cepacol 1 lozenge MUCOUS MEM Q4HR PRN 02/17/19 03/06/19 History lozenge] Losartan [Cozaar] 50 mg PO BID #0 02/18/19 03/06/19 Rx Biotin 5 mg PO DAILY 03/06/19 03/06/19 History Furosemide [Lasix] 20 mg PO DAILY 03/06/19 03/06/19 History Mirtazapine 7.5 mg PO HS 03/06/19 03/06/19 History Allergies Allergy/AdvReac Type Severity Reaction Status Date / Time morphine AdvReac PASSES OUT Verified 03/06/19 08:53 nitroglycerin AdvReac PASSES OUT Verified 03/06/19 08:53 Sulfa (Sulfonamide AdvReac Itching Verified 03/06/19 08:53 Antibiotics) Physical Exam Vitals: Vital Signs Temp Pulse Pulse Resp BP BP Pulse Ox 03/07/19 04:00 98.7 F 73 17 163/71 100 03/06/19 23:09 97.9 F 80 18 129/60 99 03/06/19 20:00 98.1 F 67 16 175/75 97 03/06/19 17:32 186/89 03/06/19 17:17 97.8 F 86 18 194/113 98 03/06/19 17:02 98 F 75 18 137/78 100 03/06/19 14:56 98.5 F 80 20 152/82 98 03/06/19 11:22 110 H 20 98/62 97 03/06/19 10:04 110 H 20 98 03/06/19 09:11 97.6 F 98 20 131/94 99 Intake and Output 03/06/19 03/07/19 03/07/19 22:59 06:59 14:59 Intake Total 50.335 51.91 240 Balance 50.335 51.91 240 Intake: Intake, IV Titration 50.335 51.91 Amount Heparin Sod,Pork in 0.45% 50.335 51.91 NaCl 25,000 unit In 0.45 % NaCl 1 250ml.bag @ 12 UNITS/KG/HR 7.457 mls/hr IV .Q24H [facility] Rx#: [id number] Oral 240 Other: # Voids 1 Weight 62.142 kg 59.5 kg - Constitutional General appearance: cooperative, no acute distress, thin-appearing - EENT Eyes: anicteric sclerae, PERRLA, normal appearance ENT: hearing grossly normal - Neck Neck: no lymphadenopathy, normal ROM, no other, no rigidity, no stridor, no thyromegaly - Respiratory Respiratory: bilateral: CTA, negative: diminished, dullness, rales, rhonchi - Cardiovascular Rhythm: regular Heart sounds: normal: S1, S2 Abnormal Heart Sounds: no systolic murmur, no diastolic murmur, no rub, no S3 Gallop, no S4 Gallop, no click, no other - Gastrointestinal General gastrointestinal: normal bowel sounds, soft - Integumentary Integumentary: no rash - Neurologic Neurologic: CNII-XII intact - Musculoskeletal Musculoskeletal: gait normal, strength equal bilaterally - Psychiatric Psychiatric: A&O x's 3, appropriate affect Results CBC & Chem 7: 03/07/19 06:34 03/07/19 10:41 Labs: Abnormal Lab Results - Last 24 Hours (Table) 03/06/19 03/06/19 03/06/19 Range/Units 09:05 09:05 09:05 WBC 3.3 L (3.8-10.6) k/uL RBC (3.80-5.40) m/uL Hgb 11.1 L (11.4-16.0) gm/dL Hct (34.0-46.0) % MCHC (31.0-37.0) g/dL APTT (22.0-30.0) sec BUN 22 H (7-17) mg/dL Glucose 116 H (74-99) mg/dL POC Glucose (mg/dL) (75-99) mg/dL Plasma Lactic Acid Celestino 2.3 H* (0.7-2.0) mmol/L Urine Protein (Negative) Urine Glucose (UA) (Negative) Urine Nitrite (Negative) Urine WBC (0-5) /hpf Urine Mucus (None) /hpf 03/06/19 03/06/19 03/06/19 Range/Units 09:05 09:10 10:03 WBC (3.8-10.6) k/uL RBC (3.80-5.40) m/uL Hgb (11.4-16.0) gm/dL Hct (34.0-46.0) % MCHC (31.0-37.0) g/dL APTT 18.0 L (22.0-30.0) sec BUN (7-17) mg/dL Glucose (74-99) mg/dL POC Glucose (mg/dL) 132 H (75-99) mg/dL Plasma Lactic Acid Celestino (0.7-2.0) mmol/L Urine Protein Trace H (Negative) Urine Glucose (UA) 2+ H (Negative) Urine Nitrite Positive H (Negative) Urine WBC 7 H (0-5) /hpf Urine Mucus Rare H (None) /hpf 03/06/19 03/06/19 03/06/19 Range/Units 11:21 12:50 16:22 WBC (3.8-10.6) k/uL RBC (3.80-5.40) m/uL Hgb (11.4-16.0) gm/dL Hct (34.0-46.0) % MCHC (31.0-37.0) g/dL APTT (22.0-30.0) sec BUN (7-17) mg/dL Glucose (74-99) mg/dL POC Glucose (mg/dL) 190 H 271 H 268 H (75-99) mg/dL Plasma Lactic Acid Celestino (0.7-2.0) mmol/L Urine Protein (Negative) Urine Glucose (UA) (Negative) Urine Nitrite (Negative) Urine WBC (0-5) /hpf Urine Mucus (None) /hpf 03/06/19 03/06/19 03/06/19 Range/Units 17:43 18:48 21:07 WBC (3.8-10.6) k/uL RBC (3.80-5.40) m/uL Hgb (11.4-16.0) gm/dL Hct (34.0-46.0) % MCHC (31.0-37.0) g/dL APTT 38.3 H (22.0-30.0) sec BUN (7-17) mg/dL Glucose (74-99) mg/dL POC Glucose (mg/dL) 305 H 275 H (75-99) mg/dL Plasma Lactic Acid Celestino (0.7-2.0) mmol/L Urine Protein (Negative) Urine Glucose (UA) (Negative) Urine Nitrite (Negative) Urine WBC (0-5) /hpf Urine Mucus (None) /hpf 03/07/19 03/07/19 03/07/19 Range/Units 00:57 06:27 06:34 WBC (3.8-10.6) k/uL RBC 3.60 L (3.80-5.40) m/uL Hgb 10.3 L (11.4-16.0) gm/dL Hct 33.4 L (34.0-46.0) % MCHC 30.8 L (31.0-37.0) g/dL APTT 42.1 H (22.0-30.0) sec BUN (7-17) mg/dL Glucose (74-99) mg/dL POC Glucose (mg/dL) 53 L (75-99) mg/dL Plasma Lactic Acid Celestino (0.7-2.0) mmol/L Urine Protein (Negative) Urine Glucose (UA) (Negative) Urine Nitrite (Negative) Urine WBC (0-5) /hpf Urine Mucus (None) /hpf Thrombosis Risk Factor Assmnt - DVT/VTE Prophylaxis DVT/VTE Prophylaxis: Pharmacologic Prophylaxis ordered - Choose All That Apply Each Risk Factor Represents 2 Points: Age 61-74 years Thrombosis Risk Factor Assessment Total Risk Factor Score: 2 Thrombosis Risk Factor Assessment Level: Low Risk Assessment and Plan Plan: 1. A. fib with RVR currently on Cardizem drip and heparin drip.CHAD2 VASC 5. Metoprolol initiated 25 twice a day 2. Poorly controlled diabetes mellitus type 1. Decrease Lantus to 5 units in the morning with sliding scale diabetic education, follow-up with endocrinology as an outpatient last hemoglobin A1c was around 14%. Patient has stopped following the endocrinology and is planning to go to [facility] for management of her diabetes. 3. Non-ST elevation ID. EKG suggestive of ST depressions and T-wave inversion in inferior leads which are also seen on previous EKG from earlier this month. Continue patient on aspirin 81 mg once every day, heparin drip, continue metoprolol 25mg in the morning 25 mg daily, start the patient on Crestor 10 mg orally once every day. Patient was planned to undergo a stress test as outpatient. Cardiology consulted troponin is negative 1 and repeat troponin ordered 4. Hypertension and hypertensive cardiovascular disease. Continue metoprolol 25 twice a day hold Norvasc on discharge continue Lasix 20 mg by mouth daily continue losartan 50 twice a day 5. Diabetic polyneuropathy. Currently not on any medication. 6. Hyperlipidemia continue Lipitor 20 mg by mouth daily 7. Vitamin D deficiency. Continue vitamin D supplement. 8. Depression continue Remeron 7.5 mg at bedtime 9. DVT prophylaxis. Continue patient on heparin drip. 10. GI prophylaxis. Continue patient on Protonix 40 mg by mouth every 24 hours. 11. Admitted to inpatient. Estimate a length of stay 2 midnights. 12. Patient is full code.
--- NOTE | 2019-03-07 15:24 | P.CRDCN ---
History of Present Illness History of present illness: This is Karen Love PA-C dictating a consult on this patient The patient was interviewed and examined by me as well as by Dr. Hernandez Case discussed with Dr. Hernandez and he agrees with the plan of care HPI Patient is a 69-year-old female with a past medical history of CAD, diabetes, hypertension, and dyslipidemia who presented with hypoglycemia. She is a patient with Dr. Hernandez's. She states she didn't eat enough and then took too much insulin and her blood sugar dropped to 40. She felt dizzy as if she was going to pass out and her family member brought her into the emergency department. Cardiology is consulted because she was found to be in atrial fibrillation with RVR. EKG shows atrial fibrillation with T-wave inversions in the inferior leads which were present on a prior EKG. She was started on IV Cardizem and has converted to sinus rhythm. Patient seen and examined resting in bed. States she feels better. Denies any chest pain or shortness of breath. ROS: No fevers, chills or rigors, no cough, phlegm or expectoration, no nausea, vomiting or diarrhea, no hematuria, dysuria, no musculoskeletal complaints, no strokes or seizures, no skin lesions. EXAMINATION: Patient is afebrile, pulse in the 70s, respirations 17, blood pressure 163/71, oxygen saturation 100% on room air Patient seen and examined resting in bed in no acute distress Lungs are clear to auscultation bilaterally Heart is regular, systolic murmur audible No elevated JVD or lower extremity edema REVIEW OF LABS, ECG & MEDICAL DATA WBC 4.6, hemoglobin 10.3, platelets 254, potassium 4.3, BUN 24, creatinine 0.75 Troponin negative 2 TSH abnormal Recent echocardiogram shows EF 60-65%, severe concentric LVH, moderate MR IMPRESSION / ASSESSMENT: New-onset atrial fibrillation with RVR, currently in sinus rhythm, CHADSVASC score 5 for hypertension, diabetes, history of NC, age, and female History of CAD Hypertension Diabetes, blood sugar not well controlled dyslipidemia Abnormal TSH PLAN: Start metoprolol 25 mg twice a day for rate control Start anticoagulation with eliquis 5 mg by mouth twice a day Continue aspirin and atorvastatin continue losartan 50 mg twice daily Management of abnormal TSH by primary care team Past Medical History Past Medical History: Coronary Artery Disease (CAD), Diabetes Mellitus, Deep Vein Thrombosis (DVT), GERD/Reflux, Hyperlipidemia, Hypertension, Osteoarthritis (OA), Vascular Disorder Additional Past Medical History / Comment(s): IDDM type I with diabetic neuropathy, narcolepsy, DVTs L lower extremity, vertigo occasionally, low back pian with bilateral sciatica, PAD, pneumothorax when pt was in her 20s with chest tube, constipation, bronchitis. History of Any Multi-Drug Resistant Organisms: None Reported Past Surgical History: Appendectomy, Cholecystectomy, Heart Catheterization With Stent, Hysterectomy, Tubal Ligation Additional Past Surgical History / Comment(s): PCI/stent, ectopic pregnancies with eventual total hysterectomy, EGD, colonoscopy, L breast biopsy-benign, bilateral carpal tunnel release, bilateral eyes laser surgery/lens. Past Anesthesia/Blood Transfusion Reactions: Previous Problems w/ Anesthesia, Postoperative Nausea & Vomiting (PONV) Additional Past Anesthesia/Blood Transfusion Reaction / Comment(s): PT STATES HER AND HER FAMILY HAVE DIFFICULTY WAKING UP Date of Last Stent Placement:: Past Psychological History: No Psychological Hx Reported Additional Psychological History / Comment(s): Pt resides alone. Her spouse in September 2018. She states she still feels "stress" d/t her spouses but denies depression/thoughts or plans of suicide. She owns a cane/walker but has not needed to use them lately. She does not drive, her grandson or son take her to appts. Smoking Status: Former smoker Past Alcohol Use History: None Reported Additional Past Alcohol Use History / Comment(s): STARTED SMOKING AT AGE 12, QUIT AT AGE 26 SMOKED 1 PPD Past Drug Use History: None Reported - Past Family History Mother Family Medical History: Hypertension, Seizure Disorder Additional Family Medical History / Comment(s): Mother at age 75 Father Family Medical History: Renal Disease Additional Family Medical History / Comment(s): Father at age 58 from acute renal failure and he was an alcoholic. Son(s) Family Medical History: No Reported History Additional Family Medical History / Comment(s): Patient has 2 sons with no major medical problems. Medications and Allergies Home Medications Medication Instructions Recorded Confirmed Type Aspirin 81 mg PO HS 01/20/16 03/06/19 History Insulin Aspart [NovoLOG] See Protocol SQ ACHS PRN 04/08/17 03/06/19 History Insulin Glargine [Lantus] 12 unit SQ HS 09/05/17 03/06/19 History Multivit with Calcium,Iron,Min 1 tab PO DAILY 09/09/18 03/06/19 History [Women's Multivitamin] Cholecalciferol [Vitamin D3 (25 1,000 unit PO DAILY 01/29/19 03/06/19 History Mcg = 1000 Iu)] Cyanocobalamin [Vitamin B-12] 500 mcg PO DAILY 01/30/19 03/06/19 History INSULIN ASPART (NovoLOG) [NovoLOG 6 unit SQ AC-TID 01/30/19 03/06/19 History (formulary)] Magnesium Oxide [Mag-Ox] 800 mg PO DAILY 01/30/19 03/06/19 History Montelukast Sodium [Singulair] 10 mg PO HS PRN 01/30/19 03/06/19 History Rosuvastatin [Crestor] 10 mg PO DAILY 01/30/19 03/06/19 History amLODIPine [Norvasc] 5 mg PO DAILY 01/30/19 03/06/19 History Benzocaine/Menthol Lozeng [Cepacol 1 lozenge MUCOUS MEM Q4HR PRN 02/17/19 03/06/19 History lozenge] Losartan [Cozaar] 50 mg PO BID #0 02/18/19 03/06/19 Rx Biotin 5 mg PO DAILY 03/06/19 03/06/19 History Furosemide [Lasix] 20 mg PO DAILY 03/06/19 03/06/19 History Mirtazapine 7.5 mg PO HS 03/06/19 03/06/19 History Allergies Allergy/AdvReac Type Severity Reaction Status Date / Time morphine AdvReac PASSES OUT Verified 03/06/19 08:53 nitroglycerin AdvReac PASSES OUT Verified 03/06/19 08:53 Sulfa (Sulfonamide AdvReac Itching Verified 03/06/19 08:53 Antibiotics) Physical Exam Vitals: Vital Signs Temp Pulse Pulse Resp BP BP Pulse Ox 03/07/19 04:00 98.7 F 73 17 163/71 100 03/06/19 23:09 97.9 F 80 18 129/60 99 03/06/19 20:00 98.1 F 67 16 175/75 97 03/06/19 17:32 186/89 03/06/19 17:17 97.8 F 86 18 194/113 98 03/06/19 17:02 98 F 75 18 137/78 100 Intake and Output 03/07/19 03/07/19 03/07/19 06:59 14:59 22:59 Intake Total 51.91 600 Balance 51.91 600 Intake: Intake, IV Titration 51.91 Amount Heparin Sod,Pork in 0.45% 51.91 NaCl 25,000 unit In 0.45 % NaCl 1 250ml.bag @ 12 UNITS/KG/HR 7.457 mls/hr IV .Q24H [facility] Rx#: [id number] Oral 600 Other: # Voids 1 1 Weight 59.5 kg Results 03/07/19 06:34 03/07/19 10:41 Cardiac Enzymes 03/07/19 Range/Units 13:14 Troponin I <0.012 (0.000-0.034) ng/mL Coagulation 03/06/19 03/07/19 03/07/19 Range/Units 18:48 00:57 06:34 PT 10.2 (9.0-12.0) sec APTT 38.3 H 42.1 H (22.0-30.0) sec CBC 03/07/19 Range/Units 06:34 WBC 4.6 (3.8-10.6) k/uL RBC 3.60 L (3.80-5.40) m/uL Hgb 10.3 L (11.4-16.0) gm/dL Hct 33.4 L (34.0-46.0) % Plt Count 254 (150-450) k/uL Comprehensive Metabolic Panel 03/07/19 Range/Units 10:41 Sodium 138 (137-145) mmol/L Potassium 4.3 (3.5-5.1) mmol/L Chloride 101 (98-107) mmol/L Carbon Dioxide 32 H (22-30) mmol/L BUN 24 H (7-17) mg/dL Creatinine 0.75 (0.52-1.04) mg/dL Glucose 315 H (74-99) mg/dL Calcium 9.0 (8.4-10.2) mg/dL Current Medications Generic Name Dose Route Start Last Admin Trade Name Freq PRN Reason Stop Dose Admin Apixaban 5 mg 03/07/19 21:00 Eliquis PO BID [facility] Aspirin 81 mg 03/07/19 21:00 Aspirin PO HS [facility] Atorvastatin Calcium 20 mg 03/07/19 09:15 03/07/19 09:25 Lipitor PO 20 mg DAILY [facility] Administration Benzocaine/Menthol 1 each 03/07/19 09:14 Cepacol Lozenge MUCOUS MEM Q4HR PRN Sore Throat Furosemide 20 mg 03/07/19 09:00 03/07/19 09:25 Lasix PO 20 mg DAILY [facility] Administration Heparin Sodium (Porcine) 0 unit 03/06/19 12:53 Heparin IV 03/07/19 21:00 PER PROTOCOL PRN Low PTT Protocol Heparin Sodium/Sodium Chloride 250 mls @ 7.457 mls/hr 03/06/19 13:00 03/07/19 01:49 25,000 unit/ Sodium Chloride IV 03/07/19 21:00 16 units/kg/hr .Q24H [facility] 9.943 mls/hr Titration Protocol 12 UNITS/KG/HR Sodium Chloride 1,000 mls @ 20 mls/hr 03/06/19 13:00 03/07/19 12:34 Saline 0.9% IV 20 mls/hr .Q24H [facility] Administration Insulin Aspart 0 unit 03/06/19 17:30 03/07/19 12:34 Novolog SQ 5 unit ACHS [facility] Administration Protocol Insulin Detemir 5 unit 03/07/19 21:00 Levemir SQ HS [facility] Losartan Potassium 50 mg 03/06/19 21:00 03/07/19 09:25 Cozaar PO 50 mg BID [facility] Administration Magnesium Oxide 800 mg 03/07/19 09:15 03/07/19 09:25 Mag-Ox PO 800 mg DAILY [facility] Administration Metoprolol Tartrate 25 mg 03/07/19 11:30 03/07/19 12:35 Lopressor PO Not Given BID [facility] Mirtazapine 7.5 mg 03/06/19 21:00 03/06/19 22:16 Remeron PO 7.5 mg HS [facility] Administration Montelukast Sodium 10 mg 03/07/19 09:14 Singulair PO HS PRN Allergy Symptoms Naloxone HCl 0.2 mg 03/06/19 12:55 Narcan IV Q2M PRN Opioid Reversal Intake and Output 03/07/19 03/07/19 03/07/19 06:59 14:59 22:59 Intake Total 51.91 600 Balance 51.91 600 Intake: Intake, IV Titration 51.91 Amount Heparin Sod,Pork in 0.45% 51.91 NaCl 25,000 unit In 0.45 % NaCl 1 250ml.bag @ 12 UNITS/KG/HR 7.457 mls/hr IV .Q24H [facility] Rx#: [id number] Oral 600 Other: # Voids 1 1 Weight 59.5 kg 03/07/19 06:34 03/07/19 10:41
[2019-03-07 16:37] LABS: Glucose,Whole Blood 252 mg/dL (75-99)
[2019-03-07] MEDS: HEPARIN SOD,PORK IN 0.45% NACL 25,000 UNIT in 0.45% NACL 1 250ML.BAG IV SCH (17:00)
[2019-03-07] MEDS: APIXABAN 5 MG TAB PO SCH (17:08)
--- NOTE | 2019-03-07 17:16 | ECHOF ---
Referral Reason:CHF MEASUREMENTS -------- HEIGHT: 172.7 cm WEIGHT: 59.4 kg BP: 163/71 IVSd: 1.8 cm (0.6 - 1.1) LVIDd: 3.5 cm (3.9 - 5.3) LVPWd: 1.6 cm (0.6 - 1.1) IVSs: 2.3 cm LVIDs: 1.9 cm LVPWs: 2.0 cm FINDINGS -------- Sinus rhythm. Limited Study There is severe concentric left ventricular hypertrophy. There is normal global left ventricular co ntractility. Overall left ventricular systolic function is normal with, an EF between 60 - 65 %. CONCLUSIONS -------- 1. Sinus rhythm. 2. Limited Study 3. There is severe concentric left ventricular hypertrophy. 4. There is normal global left ventricular contractility. 5. Overall left ventricular systolic function is normal with, an EF between 60 - 65 %. TREATMENT COORDINATOR: Amparo Cramer RDCS
[2019-03-07] MEDS: DILTIAZEM 125 MG in SODIUM CHLORIDE 0.9% 100 ML IV SCH (17:32)
[2019-03-07] MEDS: MIRTAZAPINE 15 MG TAB PO SCH (20:02)
[2019-03-07] MEDS: ASPIRIN 81 MG PO SCH (20:03)
[2019-03-07 20:09] LABS: Glucose,Whole Blood 277 mg/dL (75-99)
[2019-03-07] MEDS: INSULIN DETEMIR (LEVEMIR) 100 UNIT/ML SYR SQ SCH (20:09)
[2019-03-08 03:58] LABS: Glucose,Whole Blood 138 mg/dL (75-99)
[2019-03-08 04:29] VITALS: RESP 18
[2019-03-08 06:10] LABS: Glucose,Whole Blood 186 mg/dL (75-99)
[2019-03-08 06:44] LABS: Basophils % (A) 1 %; Eosinophils # (A) 0.1 k/uL (0-0.7); Eosinophils % (A) 2 %; HCT 32.5 % (34.0-46.0); HGB 10.3 gm/dL (11.4-16.0); Hypochromasia Slight; Lymphocytes # (A) 1.2 k/uL (1.0-4.8); Lymphocytes % (A) 36 %; MCH 29.4 pg (25.0-35.0); MCHC 31.6 g/dL (31.0-37.0); MCV 92.8 fL (80.0-100.0); Mean Platelet Volume 8.5; Monocytes # (A) 0.2 k/uL (0-1.0); Monocytes % (A) 8 %; Neutrophils # (A) 1.6 k/uL (1.3-7.7); Neutrophils % (A) 49 %; Platelet Count 251 k/uL (150-450); RDW 14.6 % (11.5-15.5); WBC 3.3 k/uL (3.8-10.6)
[2019-03-08 06:49] LABS: INR 0.9 (<1.2); Prothrombin Time 9.9 sec (9.0-12.0)
[2019-03-08 07:11] LABS: African American GFR (CKD) >90 (>60 ml/min/1.73 sqM); Anion Gap 2 mmol/L; Blood Urea Nitrogen 24 mg/dL (7-17); Calcium 8.6 mg/dL (8.4-10.2); Carbon Dioxide 33 mmol/L (22-30); Chloride 103 mmol/L (98-107); Glucose 169 mg/dL (74-99); Non-African American GFR(CKD) 85 (>60 ml/min/1.73 sqM); Potassium 4.4 mmol/L (3.5-5.1); Sodium 138 mmol/L (137-145)
[2019-03-08] MEDS: INSULIN ASPART (NovoLOG) 100 UNIT/ML VIAL SQ SCH ×4 (07:26→20:40)
[2019-03-08] MEDS: APIXABAN 5 MG TAB PO SCH (09:14)
[2019-03-08] MEDS: FUROSEMIDE 20 MG TAB PO SCH (09:14)
[2019-03-08] MEDS: ATORVASTATIN 20 MG TAB PO SCH (09:14)
[2019-03-08] MEDS: LOSARTAN 50 MG TAB PO SCH ×2 (09:15→20:40)
[2019-03-08] MEDS: MAGNESIUM OXIDE 400 MG TAB PO SCH (09:15)
[2019-03-08] MEDS: METOPROLOL TARTRATE 25 MG TAB PO SCH (09:15)
[2019-03-08 11:58] LABS: Glucose,Whole Blood 361 mg/dL (75-99)
--- NOTE | 2019-03-08 15:39 | P.PN ---
Subjective Progress Note Date: 03/08/19 This is a 69-year-old -Moroc[place] female one of my patient with a previous medical history significant for diabetes mellitus type 1 with diabetic polyneuropathy, hypertension and hypertensive cardiovascular disease with left ventricular hypertrophy, CAD status post PCI of the PDA off the RCA back in 2010, history of DVT in lower extremity, history of narcolepsy, significant weight loss over the last few months since her with metastatic lung cancer, and she had lost quite a bit of weight and not controlling her diabetes very well her hemoglobin A1c is around 14% last admitted on 02/6019 for diabetic ketoacidosis and possible N STEMI. Patient was offered heart cath which she refused. Patient follows with Dr. Verde as outpatient. She comes to the ER yesterday with hypoglycemia. Patient was following with endocrinology Dr. Saldaña but stopped seeing him a few months ago and is trying to manage her insulin by herself. According to patient she did not eat her last meal and snack. She eats 6 times a day and takes insulin based on her blood sugars. She has a sliding scales that she follow sports for short-acting and long-acting insulin.. Patient is a poor historian EMS reported a blood sugar of 40. Patient has been following with primary care physician regarding lower extremity swelling for which medications were adjusted and patient was put on on Lasix. Vitals in the ER patient had a temp 97.6 pulse 104 respiratory rate 20 blood pressure 167/116 EKG was concerning for atrial fibrillation. Patient denies any history of atrial fibrillation in the past. Labs from yesterday suggest hemoglobin of 11.1 sodium 141 potassium 3.5 BUN 22 creatinine 0.6 glucose of 116. Patient's hemoglobin has dropped by 1.2 days hemoglobin 10.3. Patient was initiated on Cardizem drip and heparin drip by ER. Cardiology was consulted. Patient's glucose improved after she was admitted with a high noted to be 305. This morning patient's blood sugar is 53. Echo from 02/17 suggest diastolic dysfunction and severe concentric left ventricular hypertrophy with EF 60-65%. Metoprolol initiated 25 mg twice a day patient currently on Cardizem that need to be tapered off 03/08 patient examined at bedside complains of anxiety was reading showed that this medication has not been tried in the past and this is a new medication which is a blood thinner. Patient does not want aeliquis initiated and would like it switched to xarelto. Patient had her sister who is currently sick and patient wanted to go home today to see her. Blood pressure this morning was systolic of 235 and diastolic 125 patient was reiterated the risk of going home at a high blood pressure. Patient is still reluctant to stay another night. If systolic blood pressure improved to less than 160 patient can be discharged home but otherwise patient need to stay today. There is really Xarelto initiated 20 mg at bedtime today. community arts centre manager to work on patient's coverage. Patient has been using nitroglycerin patches for blood pressure control at home ROS Constitutional: Denies chills, Denies fever, Denies lethargy, Denies malaise, Denies poor appetite, Denies weakness, Denies weight loss Eyes: denies decreased vision, denies diplopia, denies discharge, denies pain Ears: deny: decreased hearing Ears, nose, mouth and throat: Denies dental pain, Denies headache, Denies nasal discharge, Denies nose pain Cardiovascular: Denies chest pain, Denies decreased exercise tolerance, Denies edema, Denies high blood pressure, Denies irregular heart beat, Denies palpitations, Denies paroxysmal nocturnal dyspnea, Denies rapid heart beat, Denies shortness of breath Respiratory: Denies congestion, Denies cough, Denies cough with sputum, Denies dyspnea, Denies home oxygen, Denies wheezing Gastrointestinal: Denies abdominal pain, Denies change in bowel habits, Denies coffee ground emesis, Denies early satiety, Denies excessive gas, Denies heartburn, Denies hematemesis, Denies hematochezia, Denies loss of appetite, Denies nausea, Denies vomiting Genitourinary: Denies dysuria, Denies flank pain, Denies kidney stones, Denies menorrhagia, Denies urgency, Denies urinary frequency Musculoskeletal: Denies gait dysfunction, Denies limitation of motion, Denies morning stiffness, Denies muscle cramps Integumentary: Denies rash, Denies wounds, Denies brittle nails, Denies change in hair/nails, Denies darkening of skin Neurological: Denies balance difficulties, Denies change in speech, Denies double vision, Denies gait dysfunction, Denies loss of vision, Denies motor disturbance, Denies numbness, Denies paralysis, Denies paresthesias, Denies seizures Psychiatric: positive for anxiety, Denies depression Endocrine: Denies excessive sweating, Denies excessive thirst, Denies high blood sugars, Denies palpitations Hematologic/Lymphatic: Denies easy bruising, Denies lymphadenopathy Objective - Vital Signs Vital signs: Vital Signs Temp 97.3 F L 03/08/19 04:00 Pulse 77 03/08/19 07:40 Resp 18 03/08/19 07:40 BP 182/85 03/08/19 07:40 Pulse Ox 100 03/08/19 07:40 Intake & Output 03/07/19 03/08/19 03/08/19 18:59 06:59 18:59 Intake Total 960 720 Balance 960 720 Weight 59 kg Intake: Oral 960 720 Other: # Voids 1 1 2 - Exam - Constitutional General appearance: cooperative, no acute distress, thin - EENT Eyes: anicteric sclerae, PERRLA, normal appearance ENT: hearing grossly normal - Neck Neck: no lymphadenopathy, normal ROM, no other, no rigidity, no stridor, no thyromegaly - Respiratory Respiratory: bilateral: CTA, negative: diminished, dullness, rales, rhonchi - Cardiovascular Rhythm: regular Heart sounds: normal: S1, S2 Abnormal Heart Sounds: no systolic murmur, no diastolic murmur, no rub, no S3 G allop, no S4 Gallop, no click, no other - Gastrointestinal General gastrointestinal: normal bowel sounds, soft - Integumentary Integumentary: no rash - Neurologic Neurologic: CNII-XII intact - Musculoskeletal Musculoskeletal: gait normal, strength equal bilaterally - Psychiatric Psychiatric: A&O x's 3, appropriate affect - Labs CBC & Chem 7: 03/08/19 05:50 03/08/19 05:50 Labs: Abnormal Lab Results - Last 24 Hours (Table) 03/07/19 03/07/19 03/08/19 Range/Units 16:35 20:05 03:54 WBC (3.8-10.6) k/uL RBC (3.80-5.40) m/uL Hgb (11.4-16.0) gm/dL Hct (34.0-46.0) % Carbon Dioxide (22-30) mmol/L BUN (7-17) mg/dL Glucose (74-99) mg/dL POC Glucose (mg/dL) 252 H 277 H 138 H (75-99) mg/dL 03/08/19 03/08/19 03/08/19 Range/Units 05:50 05:50 06:09 WBC 3.3 L (3.8-10.6) k/uL RBC 3.50 L (3.80-5.40) m/uL Hgb 10.3 L (11.4-16.0) gm/dL Hct 32.5 L (34.0-46.0) % Carbon Dioxide 33 H (22-30) mmol/L BUN 24 H (7-17) mg/dL Glucose 169 H (74-99) mg/dL POC Glucose (mg/dL) 186 H (75-99) mg/dL 03/08/19 Range/Units 11:48 WBC (3.8-10.6) k/uL RBC (3.80-5.40) m/uL Hgb (11.4-16.0) gm/dL Hct (34.0-46.0) % Carbon Dioxide (22-30) mmol/L BUN (7-17) mg/dL Glucose (74-99) mg/dL POC Glucose (mg/dL) 361 H (75-99) mg/dL Assessment and Plan Plan: 1. A. fib with RVR currently on Cardizem drip and heparin drip.CHAD2 VASC 5. Metoprolol initiated 25 twice a day 2. Poorly controlled diabetes mellitus type 1. Decrease Lantus to 5 units in the morning with sliding scale diabetic education, follow-up with endocrinology as an outpatient last hemoglobin A1c was around 14%. Patient has stopped following the endocrinology and is planning to go to [facility] for management of her diabetes. 3. Non-ST elevation [place]. EKG suggestive of ST depressions and T-wave inversion in inferior leads which are also seen on previous EKG from earlier this month. Continue patient on aspirin 81 mg once every day, heparin drip, continue metoprolol 25mg in the morning 25 mg daily, start the patient on Crestor 10 mg orally once every day. Patient was planned to undergo a stress test as outpatient. Cardiology consulted troponin is negative 1 and repeat troponin ordered 4. Hypertension and hypertensive cardiovascular disease. Blood pressure uncontrolled increase metoprolol 50 twice a day Norvasc 10 mg by mouth daily continue Lasix 20 mg by mouth daily continue losartan 50 twice a day 5. Diabetic polyneuropathy. Currently not on any medication. 6. Hyperlipidemia continue Lipitor 20 mg by mouth daily 7. Vitamin D deficiency. Continue vitamin D supplement. 8. Depression continue Remeron 7.5 mg at bedtime 9. DVT prophylaxis. Continue patient on heparin drip. 10. GI prophylaxis. Continue patient on Protonix 40 mg by mouth every 24 hours. 11. Disposition likely discharge tomorrow once blood pressure is undergoing 12. Patient is full code.
--- NOTE | 2019-03-08 15:42 | P.PN ---
Subjective This is Karen Love PA-C dictating a progress note on this patient The patient was interviewed and examined by me as well as by Dr. Hernandez Case discussed with Dr. Hernandez and he agrees with the plan of care HPI/interval history Patient is a 69-year-old female with uncontrolled diabetes who presented with hypoglycemia. She was found to be in atrial fibrillation with RVR. She converted to sinus rhythm. On IV Cardizem. She remained in sinus rhythm overnight. Her blood pressure has been elevated overnight. Patient seen and examined sitting in the chair, eating lunch. The patient is very agitated and anxious to go home. States her sisters moving out of state today and she needs to go home in order to say goodbye to her. EXAMINATION Patient is afebrile, pulse in the 70s, respirations 18, blood pressure 182/85, oxygen saturation 100% on room air Patient seen and examined sitting in the chair Lungs are clear to auscultation bilaterally Heart is regular, systolic murmur audible No elevated JVD or lower extremity edema REVIEW OF LABS, ECG WBC 3.3, hemoglobin 10.3, platelets 251, potassium 4.4, BUN 24, creatinine 0.7 2 Limited echo shows EF 60-65%, severe concentric hypertrophy IMPRESSION / ASSESSMENT: New-onset atrial fibrillation with RVR, currently in sinus rhythm, CHADSVASC score 5 for hypertension, diabetes, history of MD, age, and female History of CAD Hypertension, uncontrolled Diabetes, uncontrolled dyslipidemia Echocardiogram showing preserved LV systolic function, severe concentric hypertrophy PLAN: Detailed discussion with the patient on the importance of anticoagulation for stroke prevention as well as the importance of not leaving the hospital too early before we have a chance to optimize her medications for her blood pressure control She has been started on anticoagulation with Xarelto, We will need to check for coverage of anticoagulants with the patient case manager If she is not able to afford a novel oral anticoagulant, we may have to prescribe Coumadin however the patient has difficulty managing her medications so a novel oral anticoagulant would be preferred for her Increase metoprolol to 75 mg twice daily Start amlodipine 10 mg daily Objective - Vital Signs Vital signs: Vital Signs Temp 97.3 F L 03/08/19 04:00 Pulse 77 03/08/19 07:40 Resp 18 03/08/19 07:40 BP 182/85 03/08/19 07:40 Pulse Ox 100 03/08/19 07:40 Intake & Output 03/07/19 03/08/19 03/08/19 18:59 06:59 18:59 Intake Total 960 720 Balance 960 720 Weight 59 kg Intake: Oral 960 720 Other: # Voids 1 1 2 - Labs CBC & Chem 7: 03/08/19 05:50 03/08/19 05:50 Labs: Abnormal Lab Results - Last 24 Hours (Table) 03/07/19 03/07/19 03/08/19 Range/Units 16:35 20:05 03:54 WBC (3.8-10.6) k/uL RBC (3.80-5.40) m/uL Hgb (11.4-16.0) gm/dL Hct (34.0-46.0) % Carbon Dioxide (22-30) mmol/L BUN (7-17) mg/dL Glucose (74-99) mg/dL POC Glucose (mg/dL) 252 H 277 H 138 H (75-99) mg/dL 03/08/19 03/08/19 03/08/19 Range/Units 05:50 05:50 06:09 WBC 3.3 L (3.8-10.6) k/uL RBC 3.50 L (3.80-5.40) m/uL Hgb 10.3 L (11.4-16.0) gm/dL Hct 32.5 L (34.0-46.0) % Carbon Dioxide 33 H (22-30) mmol/L BUN 24 H (7-17) mg/dL Glucose 169 H (74-99) mg/dL POC Glucose (mg/dL) 186 H (75-99) mg/dL 03/08/19 Range/Units 11:48 WBC (3.8-10.6) k/uL RBC (3.80-5.40) m/uL Hgb (11.4-16.0) gm/dL Hct (34.0-46.0) % Carbon Dioxide (22-30) mmol/L BUN (7-17) mg/dL Glucose (74-99) mg/dL POC Glucose (mg/dL) 361 H (75-99) mg/dL
[2019-03-08] MEDS: amLODIPine 10 MG TAB PO SCH (16:14)
[2019-03-08 17:06] LABS: Glucose,Whole Blood 306 mg/dL (75-99)
[2019-03-08] MEDS ORDERED: RIVAROXABAN 20 MG TAB PO SCH (17:30)
[2019-03-08] MEDS: SODIUM CHLORIDE 0.9% 1,000 ML IV SCH (18:26)
[2019-03-08 20:08] LABS: Glucose,Whole Blood 337 mg/dL (75-99)
[2019-03-08] MEDS: METOPROLOL TARTRATE 50 MG TAB PO SCH (20:39)
[2019-03-08] MEDS: MIRTAZAPINE 15 MG TAB PO SCH (20:40)
[2019-03-08] MEDS: INSULIN DETEMIR (LEVEMIR) 100 UNIT/ML SYR SQ SCH (20:40)
[2019-03-08] MEDS: ASPIRIN 81 MG PO SCH (20:40)
[2019-03-09 06:28] LABS: Glucose,Whole Blood 77 mg/dL (75-99)
[2019-03-09] MEDS: INSULIN ASPART (NovoLOG) 100 UNIT/ML VIAL SQ SCH ×2 (06:31→12:35)
[2019-03-09 06:32] LABS: Basophils # (A) 0.1 k/uL (0-0.2); Basophils % (A) 2 %; Eosinophils # (A) 0.1 k/uL (0-0.7); Eosinophils % (A) 4 %; HCT 33.5 % (34.0-46.0); HGB 10.4 gm/dL (11.4-16.0); Hypochromasia Slight; Lymphocytes # (A) 1.2 k/uL (1.0-4.8); Lymphocytes % (A) 37 %; MCH 28.6 pg (25.0-35.0); MCHC 30.9 g/dL (31.0-37.0); MCV 92.4 fL (80.0-100.0); Mean Platelet Volume 8.7; Monocytes # (A) 0.2 k/uL (0-1.0); Monocytes % (A) 7 %; Neutrophils # (A) 1.5 k/uL (1.3-7.7); Neutrophils % (A) 46 %; Platelet Count 252 k/uL (150-450); RBC 3.62 m/uL (3.80-5.40); RDW 14.6 % (11.5-15.5); WBC 3.3 k/uL (3.8-10.6)
[2019-03-09 06:43] LABS: INR 1.1 (<1.2); Prothrombin Time 11.3 sec (9.0-12.0)
[2019-03-09 06:45] LABS: African American GFR (CKD) >90 (>60 ml/min/1.73 sqM); Anion Gap 2 mmol/L; Blood Urea Nitrogen 27 mg/dL (7-17); Calcium 9.1 mg/dL (8.4-10.2); Carbon Dioxide 34 mmol/L (22-30); Chloride 103 mmol/L (98-107); Glucose 56 mg/dL (74-99); Non-African American GFR(CKD) 85 (>60 ml/min/1.73 sqM); Potassium 4.6 mmol/L (3.5-5.1); Sodium 139 mmol/L (137-145)
[2019-03-09] MEDS: METOPROLOL TARTRATE 50 MG TAB PO SCH (08:13)
[2019-03-09] MEDS: MAGNESIUM OXIDE 400 MG TAB PO SCH (08:13)
[2019-03-09] MEDS: FUROSEMIDE 20 MG TAB PO SCH (08:13)
[2019-03-09] MEDS: LOSARTAN 50 MG TAB PO SCH (08:13)
[2019-03-09] MEDS: ATORVASTATIN 20 MG TAB PO SCH (08:13)
[2019-03-09] MEDS: amLODIPine 10 MG TAB PO SCH (08:13)
[2019-03-09 09:06] VITALS: TEMP 97.3
[2019-03-09 09:33] VITALS: BP 161/77; PULSE 71
--- NOTE | 2019-03-09 12:09 | P.PN ---
Subjective Progress Note Date: 03/09/19 This is a 69-year-old -Anguill[place] female with known history of coronary artery disease, hypertension, diabetes, hyperlipidemia, who presented to the hospital with hypoglycemia. She follows with Dr. Hernandez in the office. He presented to the hospital with symptoms of dizziness. The original cardiology consultation was requested because of atrial fibrillation with a rapid ventricular response. Patient was also found to be significantly hypertensive. Blood pressure 160/70 this morning with a heart rate of 70, 100% on room air. White blood cell count 3.3, hemoglobin 10.4, platelet count 252. Sodium 139, potassium 4.6, BUN 27, creatinine 0.7. Objective - Vital Signs Vital signs: Vital Signs Temp 97.3 F L 03/09/19 08:15 Pulse 71 03/09/19 09:31 Resp 18 03/09/19 08:15 BP 161/77 03/09/19 09:31 Pulse Ox 100 03/09/19 08:15 Intake & Output 03/08/19 03/09/19 03/09/19 18:59 06:59 18:59 Intake Total 960 Balance 960 Weight 59.6 kg Intake: Oral 960 Other: # Voids 1 1 - Exam Patient seen and examined resting in bed in no acute distress Lungs are clear to auscultation bilaterally Heart is regular, systolic murmur audible No elevated JVD or lower extremity edema - Labs CBC & Chem 7: 03/09/19 05:34 03/09/19 05:34 Labs: Abnormal Lab Results - Last 24 Hours (Table) 03/08/19 03/08/19 03/09/19 Range/Units 17:03 20:07 05:34 WBC 3.3 L (3.8-10.6) k/uL RBC 3.62 L (3.80-5.40) m/uL Hgb 10.4 L (11.4-16.0) gm/dL Hct 33.5 L (34.0-46.0) % MCHC 30.9 L (31.0-37.0) g/dL Carbon Dioxide (22-30) mmol/L BUN (7-17) mg/dL Glucose (74-99) mg/dL POC Glucose (mg/dL) 306 H 337 H (75-99) mg/dL 01/27/20 Range/Units 05:34 WBC (3.8-10.6) k/uL RBC (3.80-5.40) m/uL Hgb (11.4-16.0) gm/dL Hct (34.0-46.0) % MCHC (31.0-37.0) g/dL Carbon Dioxide 34 H (22-30) mmol/L BUN 27 H (7-17) mg/dL Glucose 56 L (74-99) mg/dL POC Glucose (mg/dL) (75-99) mg/dL Assessment and Plan Plan: IMPRESSION / ASSESSMENT: #1 New-onset atrial fibrillation with RVR, paroxysmal currently in sinus rhythm, CHADSVASC score 5 for hypertension, diabetes, history of OR, age, and female #2 History of CAD #3 Hypertension #4 Diabetes #5 dyslipidemia #6 Abnormal TSH Plan From cardiology's perspective, patient may be able to be discharged home today. She does have an upcoming stress test scheduled which she has been advised to keep. She will follow with Dr Hernandez subsequent to that. Continue anticoagulation in the form of Xarelto 20 mg daily. DNP note has been reviewed, I agree with a documented findings and plan of care. Patient was seen and examined.
[2019-03-09 12:26] LABS: Glucose,Whole Blood 417 mg/dL (75-99)
--- NOTE | 2019-03-09 14:01 | P.DS ---
Providers Date of admission: 03/06/19 12:55 Expected date of discharge: 03/09/19 Attending physician: Bart Saldaña MD Consults: 03/06/19 12:56 Consult Physician Urgent Consulting Provider: Stefano Hernandez Consult Reason/Comments: a fib w rvr Do you want consulting provider notified?: Yes Primary care physician: Mary Heath Hospital Course: This is a 69-year-old -Sudanese female one of my patient with a previous medical history significant for diabetes mellitus type 1 with diabetic polyneuropathy, hypertension and hypertensive cardiovascular disease with left ventricular hypertrophy, CAD status post PCI of the PDA off the RCA back in 2010, history of DVT in lower extremity, history of narcolepsy, significant weight loss over the last few months since her with metastatic lung cancer, and she had lost quite a bit of weight and not controlling her diabetes very well her hemoglobin A1c is around 14% last admitted on 02/6019 for diabetic ketoacidosis and possible N STEMI. Patient was offered heart cath which she refused. Patient follows with Dr. Verde as outpatient. She comes to the ER yesterday with hypoglycemia. Patient was following with endocrinology Dr. Saldaña but stopped seeing him a few months ago and is trying to manage her insulin by herself. According to patient she did not eat her last meal and snack. She eats 6 times a day and takes insulin based on her blood sugars. She has a sliding scales that she follow sports for short-acting and long-acting insulin.. Patient is a poor historian EMS reported a blood sugar of 40. Patient has been following with primary care physician regarding lower extremity swelling for which medications were adjusted and patient was put on on Lasix. Vitals in the ER patient had a temp 97.6 pulse 104 respiratory rate 20 blood pressure 167/116 EKG was concerning for atrial fibrillation. Patient denies any history of atrial fibrillation in the past. Labs from yesterday suggest hemogl obin of 11.1 sodium 141 potassium 3.5 BUN 22 creatinine 0.6 glucose of 116. Patient's hemoglobin has dropped by 1.2 days hemoglobin 10.3. Patient was initiated on Cardizem drip and heparin drip by ER. Cardiology was consulted. Patient's glucose improved after she was admitted with a high noted to be 305. This morning patient's blood sugar is 53. Echo from 02/17 suggest diastolic dysfunction and severe concentric left ventricular hypertrophy with EF 60-65%. Metoprolol initiated 25 mg twice a day patient currently on Cardizem that need to be tapered off 03/08 patient examined at bedside complains of anxiety was reading showed that this medication has not been tried in the past and this is a new medication which is a blood thinner. Patient does not want aeliquis initiated and would like it switched to xarelto. Patient had her sister who is currently sick and patient wanted to go home today to see her. Blood pressure this morning was systolic of 235 and diastolic 125 patient was reiterated the risk of going home at a high blood pressure. Patient is still reluctant to stay another night. If systolic blood pressure improved to less than 160 patient can be discharged home but otherwise patient need to stay today. There is really Xarelto initiated 20 mg at bedtime today. account manager relief to work on patient's coverage. Patient has been using nitroglycerin patches for blood pressure control at home 03/09: Additional medication changes were made yesterday to control blood pressure. Metoprolol was increased to 50 mg twice daily and patient was concerned about being on eliquis which has been changed to Xarelto. Blood pressure 160/70, heart rate 70, pulse ox 100% on room air. satellite project site monitor is sinus rhythm. WBC 3.3, hemoglobin 10.4, platelet count 252, sodium 139, potas sium 4.6, BUN 27 creatinine 0.7. The patient is found to ambulate in her room. She is anxious to be discharged home today. Discharge diagnoses: 1. A. fib with RVR, paroxysmal, CHAD2 VASC 5. 2. Diabetes mellitus type 1, uncontrolled with hyperglycemia and hemoglobin A1c was around 14%. Patient is planning to go to [facility] for management of her diabetes. 3. Acute coronary syndrome ruled out by normal troponins. Patient scheduled for outpatient stress testing with Dr. Hernandez. 4. Hypertension and hypertensive cardiovascular disease. 5. Diabetic polyneuropathy. 6. Hyperlipidemia 7. Vitamin D deficiency. 8. Depression, recurrent. Discharge plan: Home Impression and plan of care have been directed as dictated by the signing physician. Faith Camarillo nurse practitioner acting as scribe for signing physician. Patient Condition at Discharge: Good Plan - Discharge Summary Discharge Rx Participant: No New Discharge Prescriptions: New Metoprolol Tartrate [Lopressor] 50 mg PO BID #60 tab Rivaroxaban [Xarelto] 20 mg PO W/SUPPER #30 tab Continue Aspirin 81 mg PO HS Insulin Aspart [NovoLOG] See Protocol SQ ACHS PRN PRN Reason: INSULIN SCALE Multivit with Calcium,Iron,Min [Women's Multivitamin] 1 tab PO DAILY Cholecalciferol [Vitamin D3 (25 Mcg = 1000 Iu)] 1,000 unit PO DAILY Montelukast Sodium [Singulair] 10 mg PO HS PRN PRN Reason: Allergy Symptoms INSULIN ASPART (NovoLOG) [NovoLOG (formulary)] 6 unit SQ AC-TID Cyanocobalamin [Vitamin B-12] 500 mcg PO DAILY Magnesium Oxide [Mag-Ox] 800 mg PO DAILY Rosuvastatin [Crestor] 10 mg PO DAILY Benzocaine/Menthol Lozeng [Cepacol lozenge] 1 lozenge MUCOUS MEM Q4HR PRN PRN Reason: Sore Throat Losartan [Cozaar] 50 mg PO BID #0 Furosemide [Lasix] 20 mg PO DAILY Biotin 5 mg PO DAILY Mirtazapine 7.5 mg PO HS Changed Insulin Glargine [Lantus] 6 unit SQ HS #0 amLODIPine [Norvasc] 10 mg PO DAILY #0 Discharge Medication List Aspirin 81 mg PO HS 01/20/16 [History] Insulin Aspart [NovoLOG] See Protocol SQ ACHS PRN 04/08/17 [History] Multivit with Calcium,Iron,Min [Women's Multivitamin] 1 tab PO DAILY 09/09/18 [History] Cholecalciferol [Vitamin D3 (25 Mcg = 1000 Iu)] 1,000 unit PO DAILY 01/29/19 [History] Cyanocobalamin [Vitamin B-12] 500 mcg PO DAILY 01/30/19 [History] INSULIN ASPART (NovoLOG) [NovoLOG (formulary)] 6 unit SQ AC-TID 01/30/19 [History] Magnesium Oxide [Mag-Ox] 800 mg PO DAILY 01/30/19 [History] Montelukast Sodium [Singulair] 10 mg PO HS PRN 01/30/19 [History] Rosuvastatin [Crestor] 10 mg PO DAILY 01/30/19 [History] Benzocaine/Menthol Lozeng [Cepacol lozenge] 1 lozenge MUCOUS MEM Q4HR PRN 02/17/19 [History] Losartan [Cozaar] 50 mg PO BID #0 02/18/19 [Rx] Biotin 5 mg PO DAILY 03/06/19 [History] Furosemide [Lasix] 20 mg PO DAILY 03/06/19 [History] Mirtazapine 7.5 mg PO HS 03/06/19 [History] Insulin Glargine [Lantus] 6 unit SQ HS #0 03/08/19 [Rx] amLODIPine [Norvasc] 10 mg PO DAILY #0 03/08/19 [Rx] Metoprolol Tartrate [Lopressor] 50 mg PO BID #60 tab 03/09/19 [Rx] Rivaroxaban [Xarelto] 20 mg PO W/SUPPER #30 tab 03/09/19 [Rx] Follow up Appointment(s)/Referral(s): Stefano Hernandez MD [STAFF PHYSICIAN] - 04/03/19 3:15 pm (Saturday -previously scheduled appointment) Mary Heath MD [Primary Care Provider] - 3 Days (Spoke to hr receptionist. Office will call with appointment time ) Patient Instructions/Handouts: A-fib (Atrial Fibrillation) (DC), Safe Use of Anticoagulants (DC) Activity/Diet/Wound Care/Special Instructions: Home Care - [facility] - [phone] Discharge Disposition: HOME WITH HOME HEALTH SERVICES
== END 2019-03-09 12:39 | disposition home health service (06) | DRG 281 ==
LOC: EC 08:43 → 3SCARD 12:55
PROVIDERS: ADMIT Internal Medicine; ATTEND Internal Medicine
DX: I48.0 Paroxysmal atrial fibrillation (principal); I21.4 Non-ST elevation (NSTEMI) myocardial infarction; F33.9 Major depressive disorder, recurrent, unspecified; I25.10 Atherosclerotic heart disease of native coronary artery without angina pectoris; K21.9 Gastro-esophageal reflux disease without esophagitis; E78.5 Hyperlipidemia, unspecified; M19.90 Unspecified osteoarthritis, unspecified site; G47.419 Narcolepsy without cataplexy; E10.42 Type 1 diabetes mellitus with diabetic polyneuropathy; M54.30 Sciatica, unspecified side; E10.65 Type 1 diabetes mellitus with hyperglycemia; E55.9 Vitamin D deficiency, unspecified; E10.649 Type 1 diabetes mellitus with hypoglycemia without coma; K59.00 Constipation, unspecified; R79.89 Other specified abnormal findings of blood chemistry; E10.51 Type 1 diabetes mellitus with diabetic peripheral angiopathy without gangrene; I11.9 Hypertensive heart disease without heart failure; M54.32 Sciatica, left side; M54.31 Sciatica, right side; Z96.20 Presence of otological and audiological implant, unspecified; Z88.5 Allergy status to narcotic agent; Z88.2 Allergy status to sulfonamides; Z88.8 Allergy status to other drugs, medicaments and biological substances; Z79.82 Long term (current) use of aspirin; Z79.899 Other long term (current) drug therapy; Z90.49 Acquired absence of other specified parts of digestive tract; Z90.710 Acquired absence of both cervix and uterus; Z95.5 Presence of coronary angioplasty implant and graft; Z98.51 Tubal ligation status; Z86.718 Personal history of other venous thrombosis and embolism; Z98.890 Other specified postprocedural states; Z87.891 Personal history of nicotine dependence; Z82.49 Family history of ischemic heart disease and other diseases of the circulatory system; Z82.0 Family history of epilepsy and other diseases of the nervous system; Z84.1 Family history of disorders of kidney and ureter
CPT/HCPCS: 36415; 71046; 80048; 80053; 81001; 83605; 83735; 84439; 84443; 84484; 85025; 85610; 85730; 93005; 93308; 96365; 96366; 96368; 96376; 99291

== ENCOUNTER 2019-06-26 14:23 | Inpatient (IN) | payer MEDICARE, OTHER ==
[2019-06-26] MEDS ORDERED: SODIUM CHLORIDE 0.9% 1,000 ML IV STA ×2 (15:17→17:45)
--- NOTE | 2019-06-26 15:20 | ED ---
General Adult HPI <Kasi Guzman - Last Filed: 06/26/19 17:51> - General Source: patient, EMS Mode of arrival: EMS Limitations: no limitations <Gerri Hassan - Last Filed: 06/26/19 18:07> - General Chief complaint: Fall Stated complaint: Syncope Time Seen by Provider: 06/26/19 15:02 - History of Present Illness Initial comments: Patient is a 69-year-old female presenting to the emergency Department with complaints of feeling weak for 2 days. Patient states she also fell earlier this morning. Patient states she was using her walker and went to the bathroom when her walker caught on the kady and she fell forward. Patient states she did not hit her head. She states she was able to sit on the side of the tub and then waited for somebody to come help her. Patient states she does not have any pain from her fall. She denies any chest pain, shortness of breath, recent fever, chills. She denies any abdominal pain, nausea, vomiting. States she has been urinating more frequently, denies dysuria. She has not been eating or drinking very much in last 2 days. She has no other complaints at this time. Upon arrival to the ER, her vital signs are stable. (Gerri Hassan) - Related Data Home Medications Medication Instructions Recorded Confirmed Aspirin 81 mg PO HS 01/20/16 03/06/19 Insulin Aspart [NovoLOG] See Protocol SQ ACHS PRN 04/08/17 03/06/19 Multivit with Calcium,Iron,Min 1 tab PO DAILY 09/09/18 03/06/19 [Women's Multivitamin] Cholecalciferol [Vitamin D3 (25 1,000 unit PO DAILY 01/29/19 03/06/19 Mcg = 1000 Iu)] Cyanocobalamin [Vitamin B-12] 500 mcg PO DAILY 01/30/19 03/06/19 INSULIN ASPART (NovoLOG) [NovoLOG 6 unit SQ AC-TID 01/30/19 03/06/19 (formulary)] Magnesium Oxide [Mag-Ox] 800 mg PO DAILY 01/30/19 03/06/19 Montelukast Sodium [Singulair] 10 mg PO HS PRN 01/30/19 03/06/19 Rosuvastatin [Crestor] 10 mg PO DAILY 01/30/19 03/06/19 Benzocaine/Menthol Lozeng [Cepacol 1 lozenge MUCOUS MEM Q4HR PRN 02/17/19 03/06/19 lozenge] Biotin 5 mg PO DAILY 03/06/19 03/06/19 Furosemide [Lasix] 20 mg PO DAILY 03/06/19 03/06/19 Mirtazapine 7.5 mg PO HS 03/06/19 03/06/19 Previous Rx's Medication Instructions Recorded Losartan [Cozaar] 50 mg PO BID #0 02/18/19 Insulin Glargine [Lantus] 6 unit SQ HS #0 03/08/19 amLODIPine [Norvasc] 10 mg PO DAILY #0 03/08/19 Metoprolol Tartrate [Lopressor] 50 mg PO BID #60 tab 03/09/19 Rivaroxaban [Xarelto] 20 mg PO W/SUPPER #30 tab 03/09/19 Allergies Allergy/AdvReac Type Severity Reaction Status Date / Time morphine AdvReac PASSES OUT Verified 03/06/19 08:53 nitroglycerin AdvReac PASSES OUT Verified 03/06/19 08:53 Sulfa (Sulfonamide AdvReac Itching Verified 03/06/19 08:53 Antibiotics) Review of Systems ROS Other: All systems not noted in ROS Statement are negative. <Kasi Guzman - Last Filed: 06/26/19 17:51> ROS Other: All systems not noted in ROS Statement are negative. <Gerri Hassan - Last Filed: 06/26/19 18:07> ROS Statement: Those systems with pertinent positive or pertinent negative responses have been documented in the HPI. Past Medical History Past Medical History: Coronary Artery Disease (CAD), Diabetes Mellitus, Deep Vein Thrombosis (DVT), GERD/Reflux, Hyperlipidemia, Hypertension, Osteoarthritis (OA), Vascular Disorder Additional Past Medical History / Comment(s): IDDM type I with diabetic neuropathy, narcolepsy, DVTs L lower extremity, vertigo occasionally, low back pian with bilateral sciatica, PAD, pneumothorax when pt was in her 20s with chest tube, constipation, bronchitis. History of Any Multi-Drug Resistant Organisms: None Reported Past Surgical History: Appendectomy, Cholecystectomy, Heart Catheterization With Stent, Hysterectomy, Tubal Ligation Additional Past Surgical History / Comment(s): PCI/stent, ectopic pregnancies with eventual total hysterectomy, EGD, colonoscopy, L breast biopsy-benign, bilateral carpal tunnel release, bilateral eyes laser surgery/lens. Past Anesthesia/Blood Transfusion Reactions: Previous Problems w/ Anesthesia, Postoperative Nausea & Vomiting (PONV) Additional Past Anesthesia/Blood Transfusion Reaction / Comment(s): PT STATES HER AND HER FAMILY HAVE DIFFICULTY WAKING UP Date of Last Stent Placement:: Past Psychological History: No Psychological Hx Reported Smoking Status: Former smoker Past Alcohol Use History: None Reported Past Drug Use History: None Reported - Past Family History Mother Family Medical History: Hypertension, Seizure Disorder Additional Family Medical History / Comment(s): Mother at age 75 Father Family Medical History: Renal Disease Additional Family Medical History / Comment(s): Father at age 58 from acute renal failure and he was an alcoholic. Son(s) Family Medical History: No Reported History Additional Family Medical History / Comment(s): Patient has 2 sons with no major medical problems. <Gerri aHssan - Last Filed: 06/26/19 18:07> General Exam Limitations: no limitations <Gerri Hassan - Last Filed: 06/26/19 18:07> - General Exam Comments Initial Comments: GENERAL: Well-appearing, well-nourished and in no acute distress. HEAD: Atraumatic, normocephalic. EYES: Pupils equal round and reactive to light, extraocular movements intact, sclera anicteric, conjunctiva are normal. ENT: TMs normal, nares patent, oropharynx clear without exudates. Moist mucous membranes. NECK: Normal range of motion, supple without lymphadenopathy or JVD. No midline tenderness. LUNGS: Breath sounds clear to auscultation bilaterally and equal. No wheezes rales or rhonchi. HEART: Regular rate and rhythm without murmurs, rubs or gallops. ABDOMEN: Soft, nontender, normoactive bowel sounds. No guarding, no rebound. No masses appreciated. : Deferred EXTREMITIES: Normal range of motion, no pitting or edema. No clubbing or cyanosis. NEUROLOGICAL: Cranial nerves II through XII grossly intact. Normal speech, normal gait. PSYCH: Normal mood, normal affect. SKIN: Warm, Dry, normal turgor, no rashes or lesions noted. (Gerri Hassan) Course <Kasi Guzman - Last Filed: 06/26/19 17:51> Vital Signs 06/26/19 14:29 Temperature 97.4 F L Pulse Rate 69 Respiratory 16 Rate Blood Pressure 102/64 O2 Sat by Pulse 97 Oximetry - Reevaluation(s) Reevaluation #1: 06/26/19 17:51 PA supervision: I proceeded [id number] evaluation the patient. She did present with complaints of weakness and a fall. She was found to have a markedly elevated creatinine with evidence of acute renal injury compared to a evaluation done in February of this year. She also elevated troponin. The patient was convinced that she needed to stay in hospital I did discuss the case with Dr. Heath. The patient be admitted with IV hydration and consultation by nephrology and cardiology. (Kasi Guzman) EKG Findings - EKG Comments: EKG Findings:: EKG shows normal sinus rhythm, left axis deviation, ST and T-wave abnormalities in V2-v6. This is changed from previous EKG on 03/06/2019. Ventricular rate 67, MI 140, QTC 429. Repeat EKG approximately 2 hours later shows similar normal sinus rhythm, ST and T-wave abnormalities. Ventricular rate 73, MI interval 136, QTc 442. <Gerri Hassan - Last Filed: 06/26/19 18:07> Medical Decision Making - Lab Data Result diagrams: 06/26/19 15:05 06/26/19 15:05 <Kasi Guzman - Last Filed: 06/26/19 17:51> - Lab Data Result diagrams: 06/26/19 15:05 06/26/19 15:05 <Gerri Hassan - Last Filed: 06/26/19 18:07> - Medical Decision Making Patient is a 69-year-old female here for weakness 2 days. Her vital signs are stable. Her exam is unremarkable. EKG shows some ST and T-wave changes when compared to previous EKG. Lab work shows elevated troponin at 0.198 which is elevated from her baseline, creatinine and BUN are also significantly elevated from her baseline at 3.26, BUN is 52. GFR is 16. Glucose is 363. Chest x-ray shows no acute process. Patient was given 1 L of fluids. Patient was very hesitant upon staying in the hospital however she did eventually agree. Patient will be admitted for acute kidney failure, elevated troponin. Patient was accepted by Dr. Heath with consult to cardiology and nephrology. Patient has been unable to produce a urine sample for UA. Case discussed in detail with Dr. Guzman. (Gerri Hassan) - Lab Data Lab Results 06/26/19 06/26/19 06/26/19 Range/Units 15:05 15:05 15:05 WBC 3.7 L (3.8-10.6) k/uL RBC 4.74 (3.80-5.40) m/uL Hgb 12.8 (11.4-16.0) gm/dL Hct 41.9 (34.0-46.0) % MCV 88.3 (80.0-100.0) fL MCH 27.1 (25.0-35.0) pg MCHC 30.6 L (31.0-37.0) g/dL RDW 13.4 (11.5-15.5) % Plt Count 238 (150-450) k/uL Neutrophils % 72 % Lymphocytes % 19 % Monocytes % 6 % Eosinophils % 0 % Basophils % 0 % Neutrophils # 2.7 (1.3-7.7) k/uL Lymphocytes # 0.7 L (1.0-4.8) k/uL Monocytes # 0.2 (0-1.0) k/uL Eosinophils # 0.0 (0-0.7) k/uL Basophils # 0.0 (0-0.2) k/uL Hypochromasia Slight PT 9.4 (9.0-12.0) sec INR 0.9 (<1.2) APTT 23.1 (22.0-30.0) sec Sodium 136 L (137-145) mmol/L Potassium 3.3 L (3.5-5.1) mmol/L Chloride 97 L (98-107) mmol/L Carbon Dioxide 27 (22-30) mmol/L Anion Gap 12 mmol/L BUN 52 H (7-17) mg/dL Creatinine 3.26 H (0.52-1.04) mg/dL Est GFR (CKD-EPI)AfAm 16 (>60 ml/min/1.73 sqM) Est GFR (CKD-EPI)NonAf 14 (>60 ml/min/1.73 sqM) Glucose 363 H (74-99) mg/dL Calcium 8.5 (8.4-10.2) mg/dL Magnesium (1.6-2.3) mg/dL Total Bilirubin 0.5 (0.2-1.3) mg/dL AST 28 (14-36) U/L ALT 13 (4-34) U/L Alkaline Phosphatase 60 (38-126) U/L Troponin I (0.000-0.034) ng/mL Total Protein 6.0 L (6.3-8.2) g/dL Albumin 3.1 L (3.5-5.0) g/dL 06/26/19 06/26/19 Range/Units 15:05 15:05 WBC (3.8-10.6) k/uL RBC (3.80-5.40) m/uL Hgb (11.4-16.0) gm/dL Hct (34.0-46.0) % MCV (80.0-100.0) fL MCH (25.0-35.0) pg MCHC (31.0-37.0) g/dL RDW (11.5-15.5) % Plt Count (150-450) k/uL Neutrophils % % Lymphocytes % % Monocytes % % Eosinophils % % Basophils % % Neutrophils # (1.3-7.7) k/uL Lymphocytes # (1.0-4.8) k/uL Monocytes # (0-1.0) k/uL Eosinophils # (0-0.7) k/uL Basophils # (0-0.2) k/uL Hypochromasia PT (9.0-12.0) sec INR (<1.2) APTT (22.0-30.0) sec Sodium (137-145) mmol/L Potassium (3.5-5.1) mmol/L Chloride (98-107) mmol/L Carbon Dioxide (22-30) mmol/L Anion Gap mmol/L BUN (7-17) mg/dL Creatinine (0.52-1.04) mg/dL Est GFR (CKD-EPI)AfAm (>60 ml/min/1.73 sqM) Est GFR (CKD-EPI)NonAf (>60 ml/min/1.73 sqM) Glucose (74-99) mg/dL Calcium (8.4-10.2) mg/dL Magnesium 2.2 (1.6-2.3) mg/dL Total Bilirubin (0.2-1.3) mg/dL AST (14-36) U/L ALT (4-34) U/L Alkaline Phosphatase (38-126) U/L Troponin I 0.198 H* (0.000-0.034) ng/mL Total Protein (6.3-8.2) g/dL Albumin (3.5-5.0) g/dL Disposition <Kasi Guzman - Last Filed: 06/26/19 17:51> Is patient prescribed a controlled substance at d/c from ED?: No Decision Date: 06/26/19 Decision Time: 17:46 <Gerri Hassan - Last Filed: 06/26/19 18:07> Clinical Impression: Weakness, Acute kidney failure, Elevated troponin Disposition: ADMITTED IP TO THIS [facility] Condition: Good Referrals: Mary Heath MD [Primary Care Provider] - 1-2 days
[2019-06-26 15:30] LABS: Basophils % (A) 0 %; Eosinophils % (A) 0 %; HCT 41.9 % (34.0-46.0); HGB 12.8 gm/dL (11.4-16.0); Hypochromasia Slight; Lymphocytes # (A) 0.7 k/uL (1.0-4.8); Lymphocytes % (A) 19 %; MCH 27.1 pg (25.0-35.0); MCHC 30.6 g/dL (31.0-37.0); MCV 88.3 fL (80.0-100.0); Monocytes # (A) 0.2 k/uL (0-1.0); Monocytes % (A) 6 %; Neutrophils # (A) 2.7 k/uL (1.3-7.7); Neutrophils % (A) 72 %; Platelet Count 238 k/uL (150-450); RBC 4.74 m/uL (3.80-5.40); RDW 13.4 % (11.5-15.5); WBC 3.7 k/uL (3.8-10.6)
--- NOTE | 2019-06-26 15:31 | XR ---
EXAMINATION TYPE: XR chest 2V DATE OF EXAM: 06/26/2019 COMPARISON: 03/06/2019 HISTORY: Shortness of breath TECHNIQUE: Frontal and lateral views of the chest are obtained. FINDINGS: Scattered senescent parenchymal changes noted. Hyperinflation compatible with COPD. No evidence for infiltrate. No evidence for atelectasis. Heart size is stable. Mediastinal structures are stable and grossly unremarkable. No evidence for hilar prominence. Degenerative changes dorsal spine. IMPRESSION: 1. No evidence for acute pulmonary disease.
[2019-06-26 15:37] LABS: Albumin 3.1 g/dL (3.5-5.0); Calcium 8.5 mg/dL (8.4-10.2); INR 0.9 (<1.2); Partial Thromboplastin Time 23.1 sec (22.0-30.0); Potassium 3.3 mmol/L (3.5-5.1); Prothrombin Time 9.4 sec (9.0-12.0); Total Bilirubin 0.5 mg/dL (0.2-1.3)
[2019-06-26 20:41] LABS: Glucose,Whole Blood 314 mg/dL (75-99)
[2019-06-26] MEDS: HEPARIN SODIUM,PORCINE 5,000 UNIT/ML 1 ML VIAL SQ SCH (21:05)
[2019-06-26] MEDS: ATORVASTATIN 20 MG TAB PO SCH (21:05)
[2019-06-26] MEDS: MELATONIN 3 MG TABLET PO SCH (21:06)
[2019-06-26] MEDS: CARVEDILOL 6.25 MG TAB PO SCH (21:06)
[2019-06-26] MEDS: INSULIN DETEMIR (LEVEMIR) 100 UNIT/ML SYR SQ SCH (21:07)
[2019-06-26 23:23] LABS: Appearance,Urine Cloudy (Clear); Bacteria,Urine Many /hpf; Bilirubin,Urine Negative (Negative); Blood,Urine Negative (Negative); Color,Urine Yellow; Glucose,Urine (UA) 1+ (Negative); Hyaline Casts,Urine 80 /lpf (0-2); Ketones,Urine Negative (Negative); Leukocyte Esterase,Urine Moderate (Negative); Mucus,Urine Occasional /hpf; Nitrite,Urine Negative (Negative); Protein,Urine 1+ (Negative); RBC,Urine 3 /hpf (0-5); Specific Gravity,Urine 1.018 (1.001-1.035); Squamous Epithelial Cell,Urine 10 /hpf (0-4); WBC,Urine 19 /hpf (0-5)
[2019-06-27 02:58] LABS: Basophils % (A) 0 %; Eosinophils % (A) 1 %; HCT 35.7 % (34.0-46.0); HGB 11.5 gm/dL (11.4-16.0); Hypochromasia Slight; Lymphocytes # (A) 0.6 k/uL (1.0-4.8); Lymphocytes % (A) 17 %; MCH 28.2 pg (25.0-35.0); MCHC 32.2 g/dL (31.0-37.0); MCV 87.7 fL (80.0-100.0); Mean Platelet Volume 9.7; Monocytes # (A) 0.2 k/uL (0-1.0); Monocytes % (A) 6 %; Neutrophils # (A) 2.7 k/uL (1.3-7.7); Neutrophils % (A) 74 %; Platelet Count 232 k/uL (150-450); RBC 4.07 m/uL (3.80-5.40); RDW 13.6 % (11.5-15.5); WBC 3.6 k/uL (3.8-10.6)
[2019-06-27 05:30] LABS: Albumin 2.6 g/dL (3.5-5.0); Calcium 7.6 mg/dL (8.4-10.2); Potassium 3.5 mmol/L (3.5-5.1); Total Bilirubin 0.3 mg/dL (0.2-1.3); Total Protein 5.3 g/dL (6.3-8.2)
[2019-06-27 06:15] LABS: Glucose,Whole Blood 312 mg/dL (75-99)
[2019-06-27] MEDS: CARVEDILOL 6.25 MG TAB PO SCH ×2 (06:28→17:28)
[2019-06-27] MEDS: INSULIN ASPART (NovoLOG) 100 UNIT/ML VIAL SQ SCH ×3 (06:30→17:28)
--- NOTE | 2019-06-27 11:53 | P.HPIM ---
History of Present Illness H&P Date: 06/26/19 Chief Complaint: Acute kidney injury This is a 69-year-old -[place] female one of my patient with a previous medical history significant for diabetes mellitus type 1 with diabetic polyneuropathy, hypertension and hypertensive cardiovascular disease with left ventricular hypertrophy, CAD status post PCI of the PDA off the RCA back in 2010, history of DVT in lower extremity, history of narcolepsy, significant weight loss over the last few months since her with metastatic lung cancer, and she had lost quite a bit of weight and not controlling her diabetes very well her hemoglobin A1c is around 14%, patient developed to have a significant poor appetite associated with increased anxiety about taking her insulin, patient was brought into the emergency department at [facility] yesterday after I spoke with her grandson yesterday stating the patient is nauseated and not able to eat or drink for the past few days I had a phone conversation with her about 24 hours prior to that and she denied any of the that, patient was in some distress she was brought into the ER and she was found to have an acute kidney injury with a creatinine of 3.26, patient was started on IV fluid and she was admitted to the hospital patient did have a panic attack while she was on the floor and she was yelling for help and she became quite upset and she wanted to be discharged from the hospital I came up to the floor to see the patient and I tried consultation about we are going to help her around here we had contacted the a psych evaluation due to her anxiety and panic attacks, and we will continue to monitor the patient very closely, patient also would be seen in consultation by nephrology for evaluation of her acute kidney injury which I believe is due to poor oral intake of fluid and food at this point. Review of Systems Constitutional: Reports anorexia, Reports daytime sleepiness, Reports fatigue, Reports malaise, Reports weakness, Reports weight loss, Denies chronic headaches, Denies fever, Denies lethargy Ears: deny: decreased hearing Ears, nose, mouth and throat: Denies dysphagia, Denies neck lump, Denies sore throat Cardiovascular: Denies chest pain, Denies decreased exercise tolerance, Denies lightheadedness, Denies rapid heart beat, Denies shortness of breath, Denies syncope Respiratory: Denies congestion, Denies cough, Denies cough with sputum, Denies home oxygen, Denies sleep apnea, Denies snoring, Denies wheezing Gastrointestinal: Reports early satiety, Reports loss of appetite, Reports nausea, Denies abdominal pain, Denies bloating, Denies BRBPR, Denies dyspepsia, Denies heartburn, Denies melena, Denies vomiting Genitourinary: Denies dysuria, Denies nocturia Menstruation: Reports postmenopausal Musculoskeletal: Denies myalgias Musculoskeletal: absent: ankle pain, ankle stiffness, ankle swelling, elbow pain, elbow stiffness, elbow swelling, foot pain, foot stiffness, foot swelling, hand pain, hand stiffness, hand swelling, hip pain, hip stiffness, hip swelling, knee pain, knee stiffness, knee swelling, shoulder pain, shoulder stiffness, shoulder swelling, wrist pain, wrist stiffness, wrist swelling Integumentary: Denies pruritus, Denies rash Neurological: Denies numbness, Denies weakness Psychiatric: Reports anxiety, Reports anxiety attacks, Reports change in appetite, Reports depression, Reports hypersomnia, Reports irritability, Reports mood swings, Reports sadness/tearfulness, Reports sleep disturbances, Denies hallucinations, Denies hopelessness, Denies insomnia, Denies paranoia, Denies suicidal ideation Endocrine: Denies fatigue, Denies weight change Past Medical History Past Medical History: Coronary Artery Disease (CAD), Diabetes Mellitus, Deep Vein Thrombosis (DVT), GERD/Reflux, Hyperlipidemia, Hypertension, Osteoarthritis (OA), Vascular Disorder Additional Past Medical History / Comment(s): IDDM type I with diabetic neuropathy, narcolepsy, DVTs L lower extremity, vertigo occasionally, low back pian with bilateral sciatica, PAD, pneumothorax when pt was in her 20s with chest tube, constipation, bronchitis. History of Any Multi-Drug Resistant Organisms: None Reported Past Surgical History: Appendectomy, Cholecystectomy, Heart Catheterization With Stent, Hysterectomy, Tubal Ligation Additional Past Surgical History / Comment(s): PCI/stent, ectopic pregnancies with eventual total hysterectomy, EGD, colonoscopy, L breast biopsy-benign, bilateral carpal tunnel release, bilateral eyes laser surgery/lens. Past Anesthesia/Blood Transfusion Reactions: Previous Problems w/ Anesthesia, Postoperative Nausea & Vomiting (PONV) Additional Past Anesthesia/Blood Transfusion Reaction / Comment(s): PT STATES HER AND HER FAMILY HAVE DIFFICULTY WAKING UP Date of Last Stent Placement:: Past Psychological History: No Psychological Hx Reported Smoking Status: Former smoker Past Alcohol Use History: None Reported Past Drug Use History: None Reported - Past Family History Mother Family Medical History: Hypertension, Seizure Disorder Additional Family Medical History / Comment(s): Mother at age 75 Father Family Medical History: Renal Disease Additional Family Medical History / Comment(s): Father at age 58 from acute renal failure and he was an alcoholic. Son(s) Family Medical History: No Reported History Additional Family Medical History / Comment(s): Patient has 2 sons with no major medical problems. Medications and Allergies Home Medications Medication Instructions Recorded Confirmed Type Montelukast Sodium [Singulair] 10 mg PO HS PRN 01/30/19 06/26/19 History Rosuvastatin [Crestor] 10 mg PO HS 01/30/19 06/26/19 History Losartan [Cozaar] 50 mg PO BID #0 02/18/19 06/26/19 Rx Carvedilol [Coreg] 6.25 mg PO BID 06/26/19 06/26/19 History Chlorthalidone [Hygroton] 25 mg PO DAILY 06/26/19 06/26/19 History Diurex 1 tab PO HS 06/26/19 06/26/19 History Insulin Aspart [NovoLOG Flexpen] See Protocol SQ AC-TID 06/26/19 06/26/19 Hist ory Insulin Glargine,Hum.rec.anlog 18 unit SQ HS 06/26/19 06/26/19 History [Lantus Solostar] Allergies Allergy/AdvReac Type Severity Reaction Status Date / Time morphine AdvReac PASSES OUT Verified 06/26/19 18:41 nitroglycerin AdvReac PASSES OUT Verified 06/26/19 18:41 Sulfa (Sulfonamide AdvReac Itching Verified 06/26/19 18:41 Antibiotics) Physical Exam Vitals: Vital Signs Temp Pulse Resp BP Pulse Ox 06/26/19 18:08 97.9 F 78 18 120/79 99 06/26/19 14:29 97.4 F L 69 16 102/64 97 Intake and Output 06/26/19 06/26/19 06/26/19 06:59 14:59 22:59 Other: Weight 49.895 kg HEENT: Head is atraumatic, normocephalic, pupils were equal round reactive to light and accommodation, extraocular muscle movement were intact, mucous membranes of the mouth are somewhat dry Neck: Supple no JVP. Chest: Clear to auscultation bilaterally there is no crackles, no wheezes, no chest wall tenderness, no intercostal retractions. Heart: First heart sound is depressed, second heart sound is normal, there is systolic ejection murmur 2/6 located in the left sternal border. Abdomen: Soft, nontender, nondistended, positive bowel sounds. Extremities: There is no edema, no calf tenderness, dorsalis pedis +1 bilaterally. Neurologic examination: Patient is awake alert and oriented 3, cranial nerves III-12 appear grossly intact, muscle power 4 out of 5 in upper and lower extremities bilaterally, deep tendon reflexes were normal. Results CBC & Chem 7: 06/27/19 02:36 06/27/19 02:36 Labs: Abnormal Lab Results - Last 24 Hours (Table) 06/26/19 06/26/19 06/26/19 Range/Units 15:05 15:05 15:05 WBC 3.7 L (3.8-10.6) k/uL MCHC 30.6 L (31.0-37.0) g/dL Lymphocytes # 0.7 L (1.0-4.8) k/uL Sodium 136 L (137-145) mmol/L Potassium 3.3 L (3.5-5.1) mmol/L Chloride 97 L (98-107) mmol/L BUN 52 H (7-17) mg/dL Creatinine 3.26 H (0.52-1.04) mg/dL Glucose 363 H (74-99) mg/dL Troponin I 0.198 H* (0.000-0.034) ng/mL Total Protein 6.0 L (6.3-8.2) g/dL Albumin 3.1 L (3.5-5.0) g/dL Thrombosis Risk Factor Assmnt - DVT/VTE Prophylaxis DVT/VTE Prophylaxis: Pharmacologic Prophylaxis ordered, Mechanical Prophylaxis ordered Assessment and Plan Assessment: Assessment and plan: 1. Acute kidney injury due to acute tubular necrosis secondary to poor oral intake of fluid and food. Patient was started on IV fluid in the form of normal saline at 100 mL an hour, we will monitor the patient input and output and daily weight monitor the patient CMP, patient would have an ultrasound of the kidney for further evaluation, nephrology consultation. 2. Diabetes mellitus type 2 with severe hyperglycemia. Restart the patient on a smaller dose of Lantus 12 units SC at bedtime as the patient is not eating more than 5-10% of her meals we will start the patient on Lantus 12 units at bedtime along with a sliding scale insulin. 3. Panic attack/severe anxiety. Discussed with the patient the need for medication and management we'll consult psychiatry for further evaluation. 4. CAD post-PCI. Continue patient on Coreg 6.25 mg orally twice every day, aspirin 325 mg orally once every day him a Crestor, gram orally once every day. 5. Hypertension and hypertensive cardiovascular disease. Continue Coreg 6.25 mg orally twice every day, discontinue hydrochlorothiazide as well as losartan d ue to acute kidney injury. 6. Hyperlipidemia. Continue patient on Crestor 10 mg orally once every day. 7. ALLERGIC rhinitis. Continue singular 10 mg at bedtime. 8. History of narcolepsy. Patient never was treated for that, she declined taking medications due to side effects. 9. Slight elevation of the troponin I believed due to her kidney injury. Patient will be seen in consultation by cardiology. 10. DVT prophylaxis. Continue heparin 5000 units subcutaneously every 12 hours. 11. GI prophylaxis. Continue patient on Protonix 40 mg orally once every day. 12. Admit to inpatient. Estimated length of stay 2 midnights. 13. Patient is full code.
--- NOTE | 2019-06-27 11:59 | P.PN ---
Subjective Progress Note Date: 06/27/19 This is a 69-year-old -[place] female one of my patient with a previous medical history significant for diabetes mellitus type 1 with diabetic polyneuropathy, hypertension and hypertensive cardiovascular disease with left ventricular hypertrophy, CAD status post PCI of the PDA off the RCA back in 2010, history of DVT in lower extremity, history of narcolepsy, significant weight loss over the last few months since her with metastatic lung cancer, and she had lost quite a bit of weight and not controlling her diabetes very well her hemoglobin A1c is around 14%, patient developed to have a significant poor appetite associated with increased anxiety about taking her insulin, patient was brought into the emergency department at [facility] yesterday after I spoke with her grandson yesterday stating the patient is nauseated and not able to eat or drink for the past few days I had a phone conversation with her about 24 hours prior to that and she denied any of the that, patient was in some distress she was brought into the ER and she was found to have an acute kidney injury with a creatinine of 3.26, patient was started on IV fluid and she was admitted to the hospital patient did have a panic attack while she was on the floor and she was yelling for help and she became quite upset and she wanted to be discharged from the hospital I came up to the floor to see the patient and I tried counseling her about that fact we are going to help her out here we had contacted mental health evaluation due to her anxiety and panic attacks, and we will continue to monitor the patient very closely, patient also would be seen in consultation by nephrology for evaluation of her acute kidney injury which I believe is due to poor oral intake of fluid and food at this point. 06/26: Patient sitting up in bed today she is feeling a lot better today she is more awake and more alert she has no panic attack overnight she slept well last night she did see cardiology earlier, she has no chest pain or shortness breath, she has no abdominal pain she continues to eat the less than 25% of her meals, she will be seen in consultation by psychiatry she was at certain point on Susan ajith but she could not take the medication due to side effects, her creatinine is coming down, we will check ultrasound of the kidneys to make sure there is no hydronephrosis patient will be seen later on by nephrology. Objective - Vital Signs Vital signs: Vital Signs Temp 98.3 F 06/27/19 08:00 Pulse 80 06/27/19 08:00 Resp 18 06/27/19 08:00 BP 96/55 06/27/19 08:00 Pulse Ox 98 06/27/19 08:00 Intake & Output 06/26/19 06/27/19 06/27/19 18:59 06:59 18:59 Intake Total 450 Output Total 300 Balance 150 Weight 49.895 kg 53 kg Intake: Oral 450 Output: Urine 300 Other: Voiding Method Toilet # Voids 1 - Exam Review of Systems Constitutional: Reports anorexia, Reports daytime sleepiness, Reports fatigue, Reports malaise, Reports weakness, Reports weight loss, Denies chronic headaches, Denies fever, Denies lethargy Ears: deny: decreased hearing Ears, nose, mouth and throat: Denies dysphagia, Denies neck lump, Denies sore t hroat Cardiovascular: Denies chest pain, Denies decreased exercise tolerance, Denies lightheadedness, Denies rapid heart beat, Denies shortness of breath, Denies syncope Respiratory: Denies congestion, Denies cough, Denies cough with sputum, Denies h ome oxygen, Denies sleep apnea, Denies snoring, Denies wheezing Gastrointestinal: Reports early satiety, Reports loss of appetite, Reports nausea, Denies abdominal pain, Denies bloating, Denies BRBPR, Denies dyspepsia, Denies heartburn, Denies melena, Denies vomiting Genitourinary: Denies dysuria, Denies nocturia Menstruation: Reports postmenopausal Musculoskeletal: Denies myalgias Musculoskeletal: absent: ankle pain, ankle stiffness, ankle swelling, elbow pain, elbow stiffness, elbow swelling, foot pain, foot stiffness, foot swelling, hand pain, hand stiffness, hand swelling, hip pain, hip stiffness, hip swelling, knee pain, knee stiffness, knee swelling, shoulder pain, shoulder stiffness, shoulder swelling, wrist pain, wrist stiffness, wrist swelling Integumentary: Denies pruritus, Denies rash Neurological: Denies numbness, Denies weakness Psychiatric: Reports anxiety, Reports anxiety attacks, Reports change in appetite, Reports depression, Reports hypersomnia, Reports irritability, Reports mood swings, Reports sadness/tearfulness, Reports sleep disturbances, Denies hallucinations, Denies hopelessness, Denies insomnia, Denies paranoia, Denies suicidal ideation Endocrine: Denies fatigue, Denies weight change Physical Examination: HEENT: Head is atraumatic, normocephalic, pupils were equal round reactive to light and accommodation, extraocular muscle movement were intact, mucous membranes of the mouth are somewhat dry Neck: Supple no JVP. Chest: Clear to auscultation bilaterally there is no crackles, no wheezes, no chest wall tenderness, no intercostal retractions. Heart: First heart sound is depressed, second heart sound is normal, there is systolic ejection murmur 2/6 located in the left sternal border. Abdomen: Soft, nontender, nondistended, positive bowel sounds. Extremities: There is no edema, no calf tenderness, dorsalis pedis +1 bilaterally. Neurologic examination: Patient is awake alert and oriented 3, cranial nerves III-12 appear grossly intact, muscle power 4 out of 5 in upper and lower extremities bilaterally, deep tendon reflexes were normal. - Labs CBC & Chem 7: 06/27/19 02:36 06/27/19 02:36 Labs: Abnormal Lab Results - Last 24 Hours (Table) 06/26/19 06/26/19 06/26/19 Range/Units 15:05 15:05 15:05 WBC 3.7 L (3.8-10.6) k/uL MCHC 30.6 L (31.0-37.0) g/dL Lymphocytes # 0.7 L (1.0-4.8) k/uL Sodium 136 L (137-145) mmol/L Potassium 3.3 L (3.5-5.1) mmol/L Chloride 97 L (98-107) mmol/L BUN 52 H (7-17) mg/dL Creatinine 3.26 H (0.52-1.04) mg/dL Glucose 363 H (74-99) mg/dL POC Glucose (mg/dL) (75-99) mg/dL Calcium (8.4-10.2) mg/dL Troponin I 0.198 H* (0.000-0.034) ng/mL Total Protein 6.0 L (6.3-8.2) g/dL Albumin 3.1 L (3.5-5.0) g/dL HDL Cholesterol (40-60) mg/dL Urine Appearance (Clear) Urine Protein (Negative) Urine Glucose (UA) (Negative) Ur Leukocyte Esterase (Negative) Urine WBC (0-5) /hpf Urine WBC Clumps (None) /hpf Ur Squamous Epith Cells (0-4) /hpf Urine Bacteria (None) /hpf Hyaline Casts (0-2) /lpf Urine Mucus (None) /hpf 06/26/19 06/26/19 06/26/19 Range/Units 20:39 20:39 22:42 WBC (3.8-10.6) k/uL MCHC (31.0-37.0) g/dL Lymphocytes # (1.0-4.8) k/uL Sodium (137-145) mmol/L Potassium (3.5-5.1) mmol/L Chloride (98-107) mmol/L BUN (7-17) mg/dL Creatinine (0.52-1.04) mg/dL Glucose (74-99) mg/dL POC Glucose (mg/dL) 314 H (75-99) mg/dL Calcium (8.4-10.2) mg/dL Troponin I 0.165 H* (0.000-0.034) ng/mL Total Protein (6.3-8.2) g/dL Albumin (3.5-5.0) g/dL HDL Cholesterol (40-60) mg/dL Urine Appearance Cloudy H (Clear) Urine Protein 1+ H (Negative) Urine Glucose (UA) 1+ H (Negative) Ur Leukocyte Esterase Moderate H (Negative) Urine WBC 19 H (0-5) /hpf Urine WBC Clumps Few H (None) /hpf Ur Squamous Epith Cells 10 H (0-4) /hpf Urine Bacteria Many H (None) /hpf Hyaline Casts 80 H (0-2) /lpf Urine Mucus Occasional H (None) /hpf 06/27/19 06/27/19 06/27/19 Range/Units 02:36 02:36 02:36 WBC 3.6 L (3.8-10.6) k/uL MCHC (31.0-37.0) g/dL Lymphocytes # 0.6 L (1.0-4.8) k/uL Sodium 134 L (137-145) mmol/L Potassium (3.5-5.1) mmol/L Chloride (98-107) mmol/L BUN 54 H (7-17) mg/dL Creatinine 2.35 H (0.52-1.04) mg/dL Glucose 358 H (74-99) mg/dL POC Glucose (mg/dL) (75-99) mg/dL Calcium 7.6 L (8.4-10.2) mg/dL Troponin I 0.133 H* (0.000-0.034) ng/mL Total Protein 5.3 L (6.3-8.2) g/dL Albumin 2.6 L (3.5-5.0) g/dL HDL Cholesterol 29 L (40-60) mg/dL Urine Appearance (Clear) Urine Protein (Negative) Urine Glucose (UA) (Negative) Ur Leukocyte Esterase (Negative) Urine WBC (0-5) /hpf Urine WBC Clumps (None) /hpf Ur Squamous Epith Cells (0-4) /hpf Urine Bacteria (None) /hpf Hyaline Casts (0-2) /lpf Urine Mucus (None) /hpf 06/27/19 Range/Units 06:13 WBC (3.8-10.6) k/uL MCHC (31.0-37.0) g/dL Lymphocytes # (1.0-4.8) k/uL Sodium (137-145) mmol/L Potassium (3.5-5.1) mmol/L Chloride (98-107) mmol/L BUN (7-17) mg/dL Creatinine (0.52-1.04) mg/dL Glucose (74-99) mg/dL POC Glucose (mg/dL) 312 H (75-99) mg/dL Calcium (8.4-10.2) mg/dL Troponin I (0.000-0.034) ng/mL Total Protein (6.3-8.2) g/dL Albumin (3.5-5.0) g/dL HDL Cholesterol (40-60) mg/dL Urine Appearance (Clear) Urine Protein (Negative) Urine Glucose (UA) (Negative) Ur Leukocyte Esterase (Negative) Urine WBC (0-5) /hpf Urine WBC Clumps (None) /hpf Ur Squamous Epith Cells (0-4) /hpf Urine Bacteria (None) /hpf Hyaline Casts (0-2) /lpf Urine Mucus (None) /hpf Microbiology - Last 24 Hours (Table) 06/26/19 22:42 Urine Culture - Preliminary Urine,Voided Assessment and Plan Assessment: Assessment and plan: 1. Acute kidney injury due to acute tubular necrosis secondary to poor oral intake of fluid and food. Patient was started on IV fluid in the form of normal saline at 100 mL an hour, we will monitor the patient input and output and daily weight monitor the patient CMP, we will check renal ultrasound. 2. Diabetes mellitus type 2 with severe hyperglycemia. Continue Lantus 12 units SC at bedtime as the patient is not eating more than 5-10% of her meals along with a sliding scale insulin. 3. Panic attack/severe anxiety. Patient will be seen in consultation by the mental health services to possibly started on small dose of SSRI. 4. CAD post-PCI. Continue patient on Coreg 6.25 mg orally twice every day, aspirin 325 mg orally once every day him a Crestor 10 mg orally once every day. 5. Hypertension and hypertensive cardiovascular disease. Continue Coreg 6.25 mg orally twice every day, discontinue hydrochlorothiazide as well as losartan due to acute kidney injury. 6. Hyperlipidemia. Continue patient on Crestor 10 mg orally once every day. 7. ALLERGIC rhinitis. Continue singular 10 mg at bedtime. 8. History of narcolepsy. Patient never was treated for that, she declined taking medications due to side effects. 9. Slight elevation of the troponin I believed due to her kidney injury. Cardiology is following.. 10. DVT prophylaxis. Continue heparin 5000 units subcutaneously every 12 hours. 11. GI prophylaxis. Continue patient on Protonix 40 mg orally once every day. 12. Plan to discharge the patient back home with her kidney recovers.
[2019-06-27] MEDS: ASPIRIN 325 MG TAB PO SCH (12:01)
[2019-06-27] MEDS: HEPARIN SODIUM,PORCINE 5,000 UNIT/ML 1 ML VIAL SQ SCH ×2 (12:01→21:41)
[2019-06-27 12:02] LABS: Glucose,Whole Blood 143 mg/dL (75-99)
--- NOTE | 2019-06-27 13:28 | P.CRDCN ---
History of Present Illness Consult date: 06/27/19 Reason for Consult (text): Elevated troponins, weakness, EKG changes History of present illness: Patient is a 69-year-old -[place] female patient of Dr. Hernandez with a past medical history of CAD status post PCI of the PDA 2010, paroxysmal atrial fibrillation, history of DVT in the lower extremity, diabetes mellitus type I with diabetic polyneuropathy, hypertension and hypertensive cardiovascular disease with left internal hypertrophy, hypertension, and dyslipidemia who presented with hypoglycemia. Patient came into [facility] due to not eating or drinking for the past couple of days along with generalized anx iety and panic attacks. She denies having any chest pain, shortness of breath. No fever or chills. She denies abdominal pain, nausea or vomiting. Patient was found to be afebrile, heart rate 84, blood pressure 118/60, pulse ox 100% on room air. WBC 3.6 and hemoglobin 11.5. BUN 52 and creatinine 3.26, blood sugar 314. Troponin 0.198, 0.165, 0.133. Triglycerides 91, cholesterol 130, LDL 83, HDL 29. Urinalysis revealed leukocyte esterase moderate, bacteria many. Chest x-ray showed no acute pulmonary disease. EKG revealed T-wave inversion in the lateral leads new compared to previous EKG. Patient was diagnosed with paroxysmal atrial fibrillation in February of this year and started on Xarelto. Review Of Systems: Constitutional: No fever, no chills, no night sweats. No weight change. No weakness, fatigue or lethargy. No daytime sleepiness. EENT: No headache. No blurred vision or double vision, no loss of vision. No loss of Hearing, no ringing in the ears, no dizziness. No nasal drainage or congestion. No epistaxis. No sore throat. Lungs: No shortness of breath, cough, no sputum production. No wheezing. Cardiovascular: No chest pain, no lower extremity edema. No palpitations. No paroxysmal nocturnal dyspnea. No orthopnea. No lightheadedness or dizziness. No syncopal episodes. Abdominal: No abdominal pain. No nausea, vomiting. No diarrhea. No constipation. No bloody or tarry stools.. No loss of appetite. Genitourinary: No dysuria, increased frequency, urgency. No urinary retention. Musculoskeletal: No myalgias. No muscle weakness, no gait dysfunction, no frequent falls. No back pain. No neck pain. Integumentary: No wounds, no lesions. No rash or pruritus. No unusual bruising. No change in hair or nails. Neurologic: No aphasia. No facial droop. No change in mentation. No head injury. No headache. No paralysis. No paresthesia. Psychiatric: No depression. No anxiety. No mood swings. Endocrine: No abnormal blood sugars. No weight change. No excessive sweating or thirst. No cold intolerance. No weight change. Physical examination: Gen: This is a a 69-year-old thin cachectic appearing -[place] female. VS: Afebrile, heart rate 81, blood pressure 123/69, pulse ox 98% on room air. HEENT: Head is atraumatic, normocephalic. Pupils equal, round. Sclerae is anicteric. NECK: Supple. No JVD. No lymphadenopathy. No thyromegaly. LUNGS: Clear to auscultation. No wheezes or rhonchi. No intercostal r etractions. HEART: Regular rate and rhythm. 2/6 systolic murmur. ABDOMEN: Soft. Bowel sounds are present. No masses. No tenderness. EXTREMITIES: No pedal edema. No calf tenderness. NEUROLOGICAL: Patient is awake, alert and oriented x3. Cranial nerves 2 through 12 are grossly intact. Assessment: Elevated troponin most likely secondary to acute kidney injury New T-wave changes on EKG Acute kidney injury Paroxysmal atrial fibrillation diagnosed in February 2019 History of CADstatus post PCI Hypertension, hypertensive cardio vascular disease Diabetes mellitus type 2 Plan: Continue Coreg 6.25 mg twice daily Continue aspirin and atorvastatin Hold losartan 50 mg twice daily for hypotension Obtain 2-D echocardiogram and Doppler study to assess cardiac structure and function Further recommendations based on echocardiogram results. Nurse practitioner note has been reviewed, I agree with documented findings and plan of care. Patient was seen and examined. Past Medical History Past Medical History: Coronary Artery Disease (CAD), Diabetes Mellitus, Deep Vein Thrombosis (DVT), GERD/Reflux, Hyperlipidemia, Hypertension, Osteoarthritis (OA), Vascular Disorder Additional Past Medical History / Comment(s): IDDM type I with diabetic neuropathy, narcolepsy, DVTs L lower extremity, vertigo occasionally, low back pian with bilateral sciatica, PAD, pneumothorax when pt was in her 20s with chest tube, constipation, bronchitis. History of Any Multi-Drug Resistant Organisms: None Reported Past Surgical History: Appendectomy, Cholecystectomy, Heart Catheterization With Stent, Hysterectomy, Tubal Ligation Additional Past Surgical History / Comment(s): PCI/stent, ectopic pregnancies with eventual total hysterectomy, EGD, colonoscopy, L breast biopsy-benign, bilateral carpal tunnel release, bilateral eyes laser surgery/lens. Past Anesthesia/Blood Transfusion Reactions: Previous Problems w/ Anesthesia, Postoperative Nausea & Vomiting (PONV) Additional Past Anesthesia/Blood Transfusion Reaction / Comment(s): PT STATES HER AND HER FAMILY HAVE DIFFICULTY WAKING UP Date of Last Stent Placement:: Past Psychological History: No Psychological Hx Reported Smoking Status: Former smoker Past Alcohol Use History: None Reported Past Drug Use History: None Reported - Past Family History Mother Family Medical History: Hypertension, Seizure Disorder Additional Family Medical History / Comment(s): Mother at age 75 Father Family Medical History: Renal Disease Additional Family Medical History / Comment(s): Father at age 58 from acute renal failure and he was an alcoholic. Son(s) Family Medical History: No Reported History Additional Family Medical History / Comment(s): Patient has 2 sons with no major medical problems. Medications and Allergies Home Medications Medication Instructions Recorded Confirmed Type Montelukast Sodium [Singulair] 10 mg PO HS PRN 01/30/19 06/26/19 History Rosuvastatin [Crestor] 10 mg PO HS 01/30/19 06/26/19 History Losartan [Cozaar] 50 mg PO BID #0 02/18/19 06/26/19 Rx Carvedilol [Coreg] 6.25 mg PO BID 06/26/19 06/26/19 History Chlorthalidone [Hygroton] 25 mg PO DAILY 06/26/19 06/26/19 History Diurex 1 tab PO HS 06/26/19 06/26/19 History Insulin Aspart [NovoLOG Flexpen] See Protocol SQ AC-TID 06/26/19 06/26/19 History Insulin Glargine,Hum.rec.anlog 18 unit SQ HS 06/26/19 06/26/19 History [Lantus Solostar] Allergies Allergy/AdvReac Type Severity Reaction Status Date / Time morphine AdvReac PASSES OUT Verified 06/26/19 18:41 nitroglycerin AdvReac PASSES OUT Verified 06/26/19 18:41 Sulfa (Sulfonamide AdvReac Itching Verified 06/26/19 18:41 Antibiotics) Physical Exam Vitals: Vital Signs Temp Pulse Pulse Resp BP BP Pulse Ox 06/27/19 11:59 98.7 F 81 16 123/69 06/27/19 08:00 98.3 F 80 18 96/55 98 06/27/19 04:00 98.3 F 73 18 131/68 97 06/27/19 00:00 98.2 F 84 18 119/60 100 06/26/19 20:00 98.4 F 75 20 130/65 100 06/26/19 18:08 97.9 F 78 18 120/79 99 06/26/19 14:29 97.4 F L 69 16 102/64 97 Intake and Output 06/26/19 06/27/19 06/27/19 22:59 06:59 14:59 Intake Total 450 120 Output Total 300 Balance 150 120 Intake: Oral 450 120 Output: Urine 300 Other: Voiding Method Toilet Toilet # Voids 1 1 Weight 49.895 kg 53 kg Results 06/27/19 02:36 06/27/19 02:36 Cardiac Enzymes 06/26/19 06/26/19 06/26/19 Range/Units 15:05 15:05 20:39 AST 28 (14-36) U/L Troponin I 0.198 H* 0.165 H* (0.000-0.034) ng/mL 06/27/19 06/27/19 Range/Units 02:36 02:36 AST 25 (14-36) U/L Troponin I 0.133 H* (0.000-0.034) ng/mL Coagulation 06/26/19 Range/Units 15:05 PT 9.4 (9.0-12.0) sec APTT 23.1 (22.0-30.0) sec Lipids 06/27/19 Range/Units 02:36 Triglycerides 91 (<150) mg/dL Cholesterol 130 (<200) mg/dL HDL Cholesterol 29 L (40-60) mg/dL CBC 06/26/19 06/27/19 Range/Units 15:05 02:36 WBC 3.7 L 3.6 L (3.8-10.6) k/uL RBC 4.74 4.07 (3.80-5.40) m/uL Hgb 12.8 11.5 (11.4-16.0) gm/dL Hct 41.9 35.7 (34.0-46.0) % Plt Count 238 232 (150-450) k/uL Comprehensive Metabolic Panel 06/26/19 06/27/19 Range/Units 15:05 02:36 Sodium 136 L 134 L (137-145) mmol/L Potassium 3.3 L 3.5 (3.5-5.1) mmol/L Chloride 97 L 101 (98-107) mmol/L Carbon Dioxide 27 23 (22-30) mmol/L BUN 52 H 54 H (7-17) mg/dL Creatinine 3.26 H 2.35 H (0.52-1.04) mg/dL Glucose 363 H 358 H (74-99) mg/dL Calcium 8.5 7.6 L (8.4-10.2) mg/dL AST 28 25 (14-36) U/L ALT 13 12 (4-34) U/L Alkaline Phosphatase 60 54 (38-126) U/L Total Protein 6.0 L 5.3 L (6.3-8.2) g/dL Albumin 3.1 L 2.6 L (3.5-5.0) g/dL Current Medications Generic Name Dose Route Start Last Admin Trade Name Freq PRN Reason Stop Dose Admin Aspirin 325 mg 06/27/19 09:00 06/27/19 12:01 Aspirin PO 325 mg DAILY TOMÁS Administration Atorvastatin Calcium 20 mg 06/26/19 21:00 06/26/19 21:05 Lipitor PO Not Given HS TOMÁS Carvedilol 6.25 mg 06/26/19 21:00 06/27/19 06:28 Coreg PO Not Given BID-W/MEALS TOMÁS Heparin Sodium (Porcine) 5,000 unit 06/26/19 21:00 06/27/19 12:01 Heparin SQ 5,000 unit Q12HR TOMÁS Administration Insulin Aspart 0 unit 06/27/19 07:30 06/27/19 12:30 Novolog SQ 1 unit AC-TID TOMÁS Administration Protocol Insulin Detemir 12 unit 06/26/19 21:00 06/26/19 21:07 Levemir SQ 12 unit HS TOMÁS Administration Melatonin 6 mg 06/26/19 21:00 06/26/19 21:06 Melatonin PO 6 mg HS TOMÁS Administration Intake and Output 06/26/19 06/27/19 06/27/19 22:59 06:59 14:59 Intake Total 450 120 Output Total 300 Balance 150 120 Intake: Oral 450 120 Output: Urine 300 Other: Voiding Method Toilet Toilet # Voids 1 1 Weight 49.895 kg 53 kg 06/27/19 02:36 06/27/19 02:36
--- NOTE | 2019-06-27 14:42 | CONS ---
CONSULTATION DATE OF SERVICE/DICTATION: 06/27/2019. IDENTIFYING DATA: This patient is a 69-year-old who was admitted to the medical floor for acute renal failure. We were asked to consult regarding panic attacks. HISTORY OF PRESENT ILLNESS: The patient indicates that she does not need a psychiatric evaluation and it is her intention to obtain a 2nd psychiatric opinion once discharged. She speaks at length about being frustrated during this hospitalization. She states she has been treated poorly. She reports that she has not been fed all day in anticipation of a test that did not occur. She indicates she is diabetic and it is necessary for her to eat. She states that her mood is good. She states that she is anxious because of the circumstances in the hospital. Several times she indicates that she does not want any medication prescribed from me for psychiatric reasons. She is reporting no suicidal or homicidal thoughts. She is endorsing no auditory or visual hallucinations. She is endorsing no specific delusions. PAST PSYCHIATRIC HISTORY: No prior inpatient psychiatric hospitalizations reported. She reports no history of suicide attempts. She states he has not been on any psychotropic medications in the past. I did read documentation that she had been on Remeron but reported side effects. PAST MEDICAL HISTORY: Diabetes with neuropathy, hypertension, left ventricular hypertrophy, coronary artery disease, history of DVT. ALLERGIES: MORPHINE, SULFA, NITROGLYCERIN. CHEMICAL DEPENDENCY HISTORY: She reports no use of alcohol, marijuana, or illicit drugs. She has never been placed resident treat for chemical dependency reasons. SOCIAL HISTORY: The patient is 69 years old. 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 She resides with 2 grand children. She has 2 sons. She states that she lost her last year due to cancer. MENTAL STATUS EXAM: The patient is a thin female, appearing her stated age. She is dressed in hospital attire. She is alert. She readily engages in conversation. She indicates that she is not depressed. She reports that she does not feel anxious other than the time that she has been in the hospital. I did attempt to try to screen for panic attacks, but again she was oppositional during that conversation. She reports having no suicidal or homicidal ideation, intent, or plan. She is reporting no auditory or visual hallucinations or any specific delusions. She is somewhat perseverative during the conversation. She does appear to be suspicious and guarded at times. She is in no physical distress. She is oriented to person, place, and date. She is aware of the care that she has received so far in the hospital. She demonstrates no tangential thinking, loose associations or flight of ideas. She is circumstantial at times. Insight and judgment grossly intact. IMPRESSIONS: Anxiety, unspecified. Rule out possible delirium secondary to renal failure. Rule out history of major depression. PLAN OF TREATMENT: The patient is reporting no acute symptoms in terms of mood disorder or psychosis. She was unwilling to discuss symptoms of anxiety. She stated several times she does not wish to have any psychotropic medications prescribed during this evaluation and that she will seek an independent evaluation outside of the hospital. She is encouraged to seek out care at an outpatient mental health clinic of her choice. At this time, she does not require inpatient psychiatric hospitalization. ASHLEY / KEITH: [id number] /
[2019-06-27 17:06] LABS: Glucose,Whole Blood 170 mg/dL (75-99)
--- NOTE | 2019-06-27 19:19 | CONS ---
CONSULTATION REASON FOR CONSULT: Acute renal failure. HISTORY OF PRESENT ILLNESS: The patient is a 69-year-old female who was admitted to the hospital with complaints of nausea. Patient had not been eating or drinking much for the past few weeks. In fact, she stated that she had not had much to drink or eat for 24 hours prior to admission. She has had significant weight loss. A few months ago, patient's with metastatic lung cancer. from 3.2 yesterday. The patient has been voiding. Her blood pressure had been low early this morning with systolic at 96. She was maintained on angiotensin receptor blockers prior to admission, currently on hold. The patient is status post IV fluid boluses as well. PAST MEDICAL HISTORY: Coronary artery disease, type 2 diabetes, history of DVT, gastroesophageal reflux disease, hypertension, hyperlipidemia, osteoarthritis, neuropathy, sciatica, peripheral vascular disease. PAST SURGICAL HISTORY: Appendectomy, cholecystectomy, cardiac catheterization, coronary stent placement, hysterectomy, tubal ligation, EGD, colonoscopy, carpal tunnel release, eye surgeries, hysterectomy, left breast biopsy which was benign. SOCIAL HISTORY: Patient is a former smoker. No history of drug abuse or alcohol abuse. MEDICATIONS: Medications at home prior to admission, Crestor, Cozaar, Coreg, Singulair, chlorthalidone, Diurex and insulin. ALLERGIES: INCLUDE MORPHINE, NITROGLYCERIN, SULFA. Sulfa causes itching. EXAMINATION: Patient is currently comfortable, awake. She is not in any acute distress. Blood pressure this morning was 96/55, heart rate 80 per minute, she is afebrile. Examination of the heart S1, S2. Examination of lungs decreased breath sounds bases. ABDOMEN: Soft, nontender, obese. Exam of lower extremities shows no significant edema. BRAZER FURNACE exam grossly intact. LABS: Show sodium 134, potassium 3.5, BUN 54 serum creatinine 2.35, hemoglobin 11.5 g/dL. UA shows 1+ protein, 1+ glucose, no blood. The patient is positive PCR for coronavirus. ASSESSMENT: 1. Acute kidney injury mostly associated with hypovolemia, hypotension in the setting of use of angiotensin receptor blockers as well as component of acute tubular necrosis from underlying Covid-19 infection. Currently nonoliguric, status post IV fluids initially. Maintain gentle IV hydration until patient is eating. 2. Type 2 diabetes with severe hyperglycemia. 3. COVID-19 infection. 4. Coronary artery disease, previous history of coronary angioplasty. 5. Hypertension blood pressure currently low. Diuretics are on hold. PLAN: Maintain gentle IV hydration. Repeat chest x-ray in a.m. Hold off on angiotensin receptor blockers as well as diuretics. Thank you for this consultation. We will continue to follow the patient with you during her hospitalization. MMDESTIN / TONYN: [id number] /
[2019-06-27 20:34] LABS: Glucose,Whole Blood 189 mg/dL (75-99)
[2019-06-27] MEDS: ATORVASTATIN 20 MG TAB PO SCH (21:40)
[2019-06-27] MEDS: MELATONIN 3 MG TABLET PO SCH (21:40)
[2019-06-27] MEDS: INSULIN DETEMIR (LEVEMIR) 100 UNIT/ML SYR SQ SCH (21:41)
[2019-06-28 06:21] LABS: Glucose,Whole Blood 153 mg/dL (75-99)
[2019-06-28] MEDS: CARVEDILOL 6.25 MG TAB PO SCH ×2 (06:28→18:27)
[2019-06-28] MEDS: INSULIN ASPART (NovoLOG) 100 UNIT/ML VIAL SQ SCH ×3 (06:28→18:27)
[2019-06-28] MEDS: ASPIRIN 325 MG TAB PO SCH ×2 (08:58→10:20)
[2019-06-28] MEDS: HEPARIN SODIUM,PORCINE 5,000 UNIT/ML 1 ML VIAL SQ SCH (08:58)
[2019-06-28 10:05] LABS: Basophils % (A) 0 %; Eosinophils % (A) 0 %; HCT 38.4 % (34.0-46.0); HGB 11.5 gm/dL (11.4-16.0); Lymphocytes # (A) 0.8 k/uL (1.0-4.8); Lymphocytes % (A) 15 %; MCH 26.2 pg (25.0-35.0); MCV 87.6 fL (80.0-100.0); Mean Platelet Volume 9.1; Monocytes # (A) 0.3 k/uL (0-1.0); Monocytes % (A) 6 %; Neutrophils % (A) 77 %; Platelet Count 242 k/uL (150-450); RBC 4.39 m/uL (3.80-5.40); RDW 13.7 % (11.5-15.5); WBC 5.1 k/uL (3.8-10.6)
[2019-06-28 10:13] LABS: Calcium 8.4 mg/dL (8.4-10.2); Potassium 3.6 mmol/L (3.5-5.1)
[2019-06-28] MEDS ORDERED: ARTIFICIAL TEARS-HYPROMELLOSE DROPS 15 ML BTL BOTH EYES PRN (11:14)
[2019-06-28] MEDS ORDERED: Potassium Replacement Protocol 1 EACH MISC MISCELLANE PRN (11:16)
--- NOTE | 2019-06-28 11:21 | P.PN ---
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, hypertension and hypertensive cardiovascular disease with left ventricular hypertrophy, CAD status post PCI of the PDA off the RCA back in 2010, history of DVT in lower extremity, history of narcolepsy, significant weight loss over the last few months since her with metastatic lung cancer, and she had lost quite a bit of weight and not controlling her diabetes very well her hemoglobin A1c is around 14%, patient developed to have a significant poor appetite associated with increased anxiety about taking her insulin, patient was brought into the emergency department at [facility] yesterday after I spoke with her grandson yesterday stating the patient is nauseated and not able to eat or drink for the past few days I had a phone conversation with her about 24 hours prior to that and she denied any of the that, patient was in some distress she was brought into the ER and she was found to have an acute kidney injury with a creatinine of 3.26, patient was started on IV fluid and she was admitted to the hospital patient did have a panic attack while she was on the floor and she was yelling for help and she became quite upset and she wanted to be discharged from the hospital I came up to the floor to see the patient and I tried counseling her about that fact we are going to help her out here we had contacted mental health evaluation due to her anxiety and panic attacks, and we will continue to monitor the patient very closely, patient also would be seen in consultation by nephrology for evaluation of her acute kidney injury which I believe is due to poor oral intake of fluid and food at this point. 06/26: Patient sitting up in bed today she is feeling a lot better today she is more awake and more alert she has no panic attack overnight she slept well last night she did see cardiology earlier, she has no chest pain or shortness breath, she has no abdominal pain she continues to eat the less than 25% of her meals, she will be seen in consultation by psychiatry she was at certain point on Susan ajith but she could not take the medication due to side effects, her creatinine is coming down, we will check ultrasound of the kidneys to make sure there is no hydronephrosis patient will be seen later on by nephrology. 06/27: Patient is sitting up in bed that she is complaining of dry cough, her Cov id 19 testing was positive she does not believe that she wants second opinion, she has been in contact isolation with droplet isolation from the get , she will be started on Rocephin 1 g IV piggyback every 24 hours, infectious disease consultation will be obtained from Dr. Guzman. Patient kidney function tests normalizes, patient was seen in consultation by cardiology underwent echo care gram the result of which is pending at the time of dictation. Objective - Vital Signs Vital signs: Vital Signs Temp 97.8 F 06/28/19 08:00 Pulse 70 06/28/19 08:00 Resp 18 06/28/19 08:00 BP 147/79 06/28/19 08:00 Pulse Ox 98 06/28/19 08:00 Intake & Output 06/27/19 06/28/19 06/28/19 18:59 06:59 18:59 Intake Total 240 240 Output Total 300 Balance 240 -60 Weight 59.5 kg Intake: Oral 240 240 Output: Urine 300 Other: Voiding Method Toilet Toilet # Voids 0 2 - Exam Review of Systems Constitutional: Reports anorexia, Reports daytime sleepiness, Reports fatigue, Reports malaise, Reports weakness, Reports weight loss, Denies chronic headaches, Denies fever, Denies lethargy Ears: deny: decreased hearing Ears, nose, mouth and throat: Denies dysphagia, Denies neck lump, Denies sore throat Cardiovascular: Denies chest pain, Denies decreased exercise tolerance, Denies lightheadedness, Denies rapid heart beat, Denies shortness of breath, Denies syncope Respiratory: Denies congestion, Denies cough, Denies cough with sputum, Denies home oxygen, Denies sleep apnea, Denies snoring, Denies wheezing Gastrointestinal: Reports early satiety, Reports loss of appetite, Reports nausea, Denies abdominal pain, Denies bloating, Denies BRBPR, Denies dyspepsia, Denies heartburn, Denies melena, Denies vomiting Genitourinary: Denies dysuria, Denies nocturia Menstruation: Reports postmenopausal Musculoskeletal: Denies myalgias Musculoskeletal: absent: ankle pain, ankle stiffness, ankle swelling, elbow pain, elbow stiffness, elbow swelling, foot pain, foot stiffness, foot swelling, hand pain, hand stiffness, hand swelling, hip pain, hip stiffness, hip swelling, knee pain, knee stiffness, knee swelling, shoulder pain, shoulder stiffness, shoulder swelling, wrist pain, wrist stiffness, wrist swelling Integumentary: Denies pruritus, Denies rash Neurological: Denies numbness, Denies weakness Psychiatric: Reports anxiety, Reports anxiety attacks, Reports change in appetite, Reports depression, Reports hypersomnia, Reports irritability, Reports mood swings, Reports sadness/tearfulness, Reports sleep disturbances, Denies hallucinations, Denies hopelessness, Denies insomnia, Denies paranoia, Denies suicidal ideation Endocrine: Denies fatigue, Denies weight change Physical Examination: HEENT: Head is atraumatic, normocephalic, pupils were equal round reactive to light and accommodation, extraocular muscle movement were intact, mucous membranes of the mouth are somewhat dry Neck: Supple no JVP. Chest: Clear to auscultation bilaterally there is no crackles, no wheezes, no chest wall tenderness, no intercostal retractions. Heart: First heart sound is depressed, second heart sound is normal, there is systolic ejection murmur 2/6 located in the left sternal border. Abdomen: Soft, nontender, nondistended, positive bowel sounds. Extremities: There is no edema, no calf tenderness, dorsalis pedis +1 bilaterally. Neurologic examination: Patient is awake alert and oriented 3, cranial nerves III-12 appear grossly intact, muscle power 4 out of 5 in upper and lower extremities bilaterally, deep tendon reflexes were normal. - Labs CBC & Chem 7: 06/28/19 08:44 06/28/19 08:44 Labs: Abnormal Lab Results - Last 24 Hours (Table) 06/26/19 06/27/19 06/27/19 Range/Units 18:00 11:42 16:37 MCHC (31.0-37.0) g/dL Lymphocytes # (1.0-4.8) k/uL Carbon Dioxide (22-30) mmol/L BUN (7-17) mg/dL Glucose (74-99) mg/dL POC Glucose (mg/dL) 143 H 170 H (75-99) mg/dL Coronavirus (PCR) Detected H (Not Detected) 06/27/19 06/28/19 06/28/19 Range/Units 20:33 06:19 08:44 MCHC 30.0 L (31.0-37.0) g/dL Lymphocytes # 0.8 L (1.0-4.8) k/uL Carbon Dioxide (22-30) mmol/L BUN (7-17) mg/dL Glucose (74-99) mg/dL POC Glucose (mg/dL) 189 H 153 H (75-99) mg/dL Coronavirus (PCR) (Not Detected) 06/28/19 Range/Units 08:44 MCHC (31.0-37.0) g/dL Lymphocytes # (1.0-4.8) k/uL Carbon Dioxide 33 H (22-30) mmol/L BUN 31 H (7-17) mg/dL Glucose 151 H (74-99) mg/dL POC Glucose (mg/dL) (75-99) mg/dL Coronavirus (PCR) (Not Detected) Microbiology - Last 24 Hours (Table) 06/26/19 22:42 Urine Culture - Preliminary Urine,Voided Assessment and Plan Assessment: Assessment and plan: 1. Acute kidney injury due to acute tubular necrosis secondary to poor oral intake of fluid and food. Patient was started on IV fluid in the form of normal saline at 100 mL an hour, we will monitor the patient input and output and daily weight monitor the patient CMP, we will check renal ultrasound. 3. Coated 19 positive. Continue contact isolation and droplet precautions, we will start the patient on Rocephin 1 g IV piggyback every 24 hours, we will recheck chest x-ray in the next 24 hours. 2. Diabetes mellitus type 2 with severe hyperglycemia. Continue Lantus 12 units SC at bedtime as the patient is not eating more than 5-10% of her meals along with a sliding scale insulin. 3. Panic attack/severe anxiety. Patient was seen in consultation by Dr. Benson however she refused to be started any treatment at this time and she wanted to seek help as an outpatient. 4. CAD post-PCI. Continue patient on Coreg 6.25 mg orally twice every day, aspirin 325 mg orally once every day him a Crestor 10 mg orally once every day. 5. Hypertension and hypertensive cardiovascular disease. Continue Coreg 6.25 mg orally twice every day, discontinue hydrochlorothiazide as well as losartan due to acute kidney injury. 6. Hyperlipidemia. Continue patient on Crestor 10 mg orally once every day. 7. ALLERGIC rhinitis. Continue singular 10 mg at bedtime. 8. History of narcolepsy. Patient never was treated for that, she declined taking medications due to side effects. 9. Slight elevation of the troponin I believed due to her kidney injury. Cardiology is following.. 10. DVT prophylaxis. Continue heparin 5000 units subcutaneously every 12 hours. 11. GI prophylaxis. Continue patient on Protonix 40 mg orally once every day. 12. Plan to discharge the patient back home in the next 24 hours after recommendation from infectious disease.
[2019-06-28 11:49] LABS: Glucose,Whole Blood 192 mg/dL (75-99)
[2019-06-28] MEDS ORDERED: POTASSIUM CHLORIDE ER 20 MEQ TAB.ER PO SCH (12:00)
--- NOTE | 2019-06-28 12:36 | XR ---
EXAMINATION TYPE: XR chest 1V DATE OF EXAM: 06/28/2019 HISTORY: Cough. REFERENCE: Previous study dated 06/26/2019. FINDINGS: Is a new development. Heart size upper limits of normal. Pleural spaces are clear. IMPRESSION: PATCHY LEFT-SIDED AIRSPACE DISEASE.
--- NOTE | 2019-06-28 15:55 | PN ---
PROGRESS NOTE Patient is seen for followup for acute kidney injury which was mainly prerenal, currently resolved. Serum creatinine down to 1.0 from 3.26 on initial admission. Patient did receive IV fluids initially. Currently she is not on any IV fluids. She was found to be positive for COVID-19 and currently denies any respiratory symptoms. Discussed with nursing staff. The patient has been eating well. She is stable. Her vital signs are reviewed. No significant edema as per nursing staff. [employer] exam has been grossly intact. LABS: Show sodium 139, potassium 3.6, chloride 102, BUN 31, creatinine 1.0, hemoglobin 11.5 g/dL. ASSESSMENT: 1. Acute kidney injury, mostly prerenal, currently improved with IV fluids, status post IV fluids. Currently not on any IV fluids. Tolerating oral intake. Continue to avoid nephrotoxic agents and maintain good oral intake, particularly fluids. Continue to hold off on the Cozaar and diuretics for now. 2. Hypertension with blood pressure low yesterday, currently it is creeping up. We can increase the Coreg if blood pressure remains uncontrolled. 3. Urinary tract infection Urine culture growing Gram-negative bacilli, maintained on antibiotics. PLAN: Continue antibiotics. Encourage increased oral intake. Hold off on angiotensin receptor blockers and diuretics for now. Increase Coreg if blood pressure remains uncontrolled. MMODL / IJN: [id number] /
--- NOTE | 2019-06-28 16:05 | P.CNPUL ---
History of Present Illness Consult date: 06/28/19 Chief complaint: Pneumonia History of present illness: A 69-year-old -[place] female patient with multiple comorbidities including coronary artery disease, previous PCI involving the PDA and RCA in addition to previous history of DVT of the lower extremity, diabetes mellitus, hypertension who came into the hospital on 06/26/2019 as the patient developed weight loss, poor appetite, and poor sugar control for her diabetes which she attributes to anxiety and grief that she encounters following the loss of her for metastatic lung cancer. The patient had a hemoglobin A1c of 14. When she came into the hospital, she was also found to have an acute kidney injury with a creatinine of 3.26 and she was started on IV fluids. She was quite panicky and she was having episodes of panic attacks. During the course of her treatment, the patient denied having any chest pain or shortness of breath. Denying of any nausea or vomiting. She was eating approximately 25% of her meals. Psychiatric was consulted and the patient was started on Remeron which improved her sleeping patterns and panic. Creatinine was also improving and the patient's renal function continued to steadily improve. Ultrasound the kidneys showed no evidence of any hydronephrosis. Meanwhile, the patient was checked for covert 19 infection and she do not to be positive. She was placed in the upper ventilation and Pulmicort consultation was requested. Note that the patient denied having any respiratory complaints. Her white cell count was at 5.1. She did have some mild lymphopenia with an absolute lymphocyte count of 800. Her d-dimer was at 107. BUN is 31 with a creatinine of 1.0 which is down significantly from 3.26. She did have an LDH level of 784. Her troponins were leaking with a maximum troponin level of 0.198. The chest exit was on time of admission on 06/26/2019 was essentially within normal limits. The follow-up chest x-ray from today shows development of a patchy left-sided disease. Nevertheless the patient's pulse ox is around 98% on room air oxygen. She is currently on subcu heparin for DVT prophylaxis. He is on Levemir insulin. She is also on Coreg and aspirin and IV Rocephin as an empiric antibiotic coverage. She is afebrile. Review of Systems Constitutional: Reports daytime sleepiness, Reports fatigue, Reports weakness Eyes: denies as per HPI, denies blurred vision, denies bulging eye, denies decreased vision, denies diplopia, denies discharge, denies dry eye, denies irritation, denies itching, denies pain, denies photophobia, denies loss of peripheral vision, denies loss of vision, denies tunnel vision/blind spots Ears: deny: decreased hearing, ear discharge, earache, tinnitus Ears, nose, mouth and throat: Reports as per HPI Breasts: absent: as per HPI, change in shape, gynecomastia, masses, nipple discharge, pain, skin changes, swelling Cardiovascular: Reports as per HPI Respiratory: Reports as per HPI Gastrointestinal: Reports as per HPI Genitourinary: Reports as per HPI Menstruation: Reports amenorrhea Musculoskeletal: Reports as per HPI Musculoskeletal: absent: ankle pain, ankle stiffness, ankle swelling Integumentary: Reports as per HPI Neurological: Reports weakness Psychiatric: Reports hypersomnia, Reports sleep disturbances Endocrine: Reports as per HPI, Reports fatigue Hematologic/Lymphatic: Reports as per HPI Allergic/Immunologic: Reports as per HPI Past Medical History Past Medical History: Coronary Artery Disease (CAD), Diabetes Mellitus, Deep Vein Thrombosis (DVT), GERD/Reflux, Hyperlipidemia, Hypertension, Osteoarthritis (OA), Vascular Disorder Additional Past Medical History / Comment(s): IDDM type I with diabetic neuropathy, narcolepsy, DVTs L lower extremity, vertigo occasionally, low back pian with bilateral sciatica, PAD, pneumothorax when pt was in her 20s with chest tube, constipation, bronchitis. History of Any Multi-Drug Resistant Organisms: None Reported Past Surgical History: Appendectomy, Cholecystectomy, Heart Catheterization With Stent, Hysterectomy, Tubal Ligation Additional Past Surgical History / Comment(s): PCI/stent, ectopic pregnancies with eventual total hysterectomy, EGD, colonoscopy, L breast biopsy-benign, bilateral carpal tunnel release, bilateral eyes laser surgery/lens. Past Anesthesia/Blood Transfusion Reactions: Previous Problems w/ Anesthesia, Postoperative Nausea & Vomiting (PONV) Additional Past Anesthesia/Blood Transfusion Reaction / Comment(s): PT STATES HE R AND HER FAMILY HAVE DIFFICULTY WAKING UP Date of Last Stent Placement:: Past Psychological History: No Psychological Hx Reported Smoking Status: Former smoker Past Alcohol Use History: None Reported Past Drug Use History: None Reported - Past Family History Mother Family Medical History: Hypertension, Seizure Disorder Additional Family Medical History / Comment(s): Mother at age 75 Father Family Medical History: Renal Disease Additional Family Medical History / Comment(s): Father at age 58 from acute renal failure and he was an alcoholic. Son(s) Family Medical History: No Reported History Additional Family Medical History / Comment(s): Patient has 2 sons with no major medical problems. Medications and Allergies Home Medications Medication Instructions Recorded Confirmed Type Montelukast Sodium [Singulair] 10 mg PO HS PRN 01/30/19 06/26/19 History Rosuvastatin [Crestor] 10 mg PO HS 01/30/19 06/26/19 History Losartan [Cozaar] 50 mg PO BID #0 02/18/19 06/26/19 Rx Carvedilol [Coreg] 6.25 mg PO BID 06/26/19 06/26/19 History Chlorthalidone [Hygroton] 25 mg PO DAILY 06/26/19 06/26/19 History Diurex 1 tab PO HS 06/26/19 06/26/19 History Insulin Aspart [NovoLOG Flexpen] See Protocol SQ AC-TID 06/26/19 06/26/19 History Insulin Glargine,Hum.rec.anlog 18 unit SQ HS 06/26/19 06/26/19 History [Lantus Solostar] Allergies Allergy/AdvReac Type Severity Reaction Status Date / Time morphine AdvReac PASSES OUT Verified 06/26/19 18:41 nitroglycerin AdvReac PASSES OUT Verified 06/26/19 18:41 Sulfa (Sulfonamide AdvReac Itching Verified 06/26/19 18:41 Antibiotics) Physical Exam Vitals: Vital Signs Temp Pulse Resp BP Pulse Ox 06/28/19 08:00 97.8 F 70 18 147/79 98 06/28/19 03:58 98.6 F 95 18 145/97 99 06/27/19 22:41 98.8 F 80 16 127/69 96 06/27/19 16:00 98.3 F 79 16 140/72 96 Intake and Output 06/27/19 06/28/19 06/28/19 22:59 06:59 14:59 Intake Total 120 240 Output Total 300 Balance 120 -60 Intake: Oral 120 240 Output: Urine 300 Other: Voiding Method Toilet Toilet # Voids 0 2 Weight 59.5 kg The patient appeared well nourished and normally developed. Vital signs as documented. Head exam is unremarkable. No scleral icterus or corneal arcus noted. Neck is without jugular venous distension, thyromegaly, or carotid bruits. Carotid upstrokes are brisk bilaterally. Lungs are clear to auscultation and percussion. Cardiac exam reveals the PMI to be normally sized and situated. Rhythm is regular. First and second heart sounds normal. No murmurs, rubs or gallops. Abdominal exam reveals normal bowel sounds, no masses, no organomegaly and no aortic enlargement. Extremities are nonedematous and both femoral and pedal pulses are normal.Examination of the skin revealed no evidence of significant rashes, suspicious appearing nevi or other concerning lesions. Neurologically the patient is awake and alert and there is no focal neurological deficits. Results - Laboratory Findings CBC and BMP: 06/28/19 08:44 06/28/19 08:44 PT/INR, D-dimer PT 9.4 sec (9.0-12.0) 06/26/19 15:05 INR 0.9 (<1.2) 06/26/19 15:05 D-Dimer 2.07 mg/L FEU (<0.60) H 06/28/19 11:53 Abnormal lab findings: Abnormal Labs 06/26/19 06/26/19 06/26/19 15:05 15:05 15:05 WBC 3.7 L MCHC 30.6 L Lymphocytes # 0.7 L D-Dimer Sodium 136 L Potassium 3.3 L Chloride 97 L Carbon Dioxide BUN 52 H Creatinine 3.26 H Glucose 363 H POC Glucose (mg/dL) Calcium Lactate Dehydrogenase Troponin I 0.198 H* Total Protein 6.0 L Albumin 3.1 L HDL Cholesterol Urine Appearance Urine Protein Urine Glucose (UA) Ur Leukocyte Esterase Urine WBC Urine WBC Clumps Ur Squamous Epith Cells Urine Bacteria Hyaline Casts Urine Mucus Coronavirus (PCR) 06/26/19 06/26/19 06/26/19 18:00 20:39 20:39 WBC MCHC Lymphocytes # D-Dimer Sodium Potassium Chloride Carbon Dioxide BUN Creatinine Glucose POC Glucose (mg/dL) 314 H Calcium Lactate Dehydrogenase Troponin I 0.165 H* Total Protein Albumin HDL Cholesterol Urine Appearance Urine Protein Urine Glucose (UA) Ur Leukocyte Esterase Urine WBC Urine WBC Clumps Ur Squamous Epith Cells Urine Bacteria Hyaline Casts Urine Mucus Coronavirus (PCR) Detected H 06/26/19 06/27/19 06/27/19 22:42 02:36 02:36 WBC MCHC Lymphocytes # D-Dimer Sodium 134 L Potassium Chloride Carbon Dioxide BUN 54 H Creatinine 2.35 H Glucose 358 H POC Glucose (mg/dL) Calcium 7.6 L Lactate Dehydrogenase Troponin I 0.133 H* Total Protein 5.3 L Albumin 2.6 L HDL Cholesterol 29 L Urine Appearance Cloudy H Urine Protein 1+ H Urine Glucose (UA) 1+ H Ur Leukocyte Esterase Moderate H Urine WBC 19 H Urine WBC Clumps Few H Ur Squamous Epith Cells 10 H Urine Bacteria Many H Hyaline Casts 80 H Urine Mucus Occasional H Coronavirus (PCR) 06/27/19 06/27/19 06/27/19 02:36 06:13 11:42 WBC 3.6 L MCHC Lymphocytes # 0.6 L D-Dimer Sodium Potassium Chloride Carbon Dioxide BUN Creatinine Glucose POC Glucose (mg/dL) 312 H 143 H Calcium Lactate Dehydrogenase Troponin I Total Protein Albumin HDL Cholesterol Urine Appearance Urine Protein Urine Glucose (UA) Ur Leukocyte Esterase Urine WBC Urine WBC Clumps Ur Squamous Epith Cells Urine Bacteria Hyaline Casts Urine Mucus Coronavirus (PCR) 06/27/19 06/27/19 06/28/19 16:37 20:33 06:19 WBC MCHC Lymphocytes # D-Dimer Sodium Potassium Chloride Carbon Dioxide BUN Creatinine Glucose POC Glucose (mg/dL) 170 H 189 H 153 H Calcium Lactate Dehydrogenase Troponin I Total Protein Albumin HDL Cholesterol Urine Appearance Urine Protein Urine Glucose (UA) Ur Leukocyte Esterase Urine WBC Urine WBC Clumps Ur Squamous Epith Cells Urine Bacteria Hyaline Casts Urine Mucus Coronavirus (PCR) 06/28/19 06/28/19 06/28/19 08:22 08:44 08:44 WBC MCHC 30.0 L Lymphocytes # 0.8 L D-Dimer Sodium Potassium Chloride Carbon Dioxide 33 H BUN 31 H Creatinine Glucose 151 H POC Glucose (mg/dL) Calcium Lactate Dehydrogenase 784 H Troponin I Total Protein Albumin HDL Cholesterol Urine Appearance Urine Protein Urine Glucose (UA) Ur Leukocyte Esterase Urine WBC Urine WBC Clumps Ur Squamous Epith Cells Urine Bacteria Hyaline Casts Urine Mucus Coronavirus (PCR) 06/28/19 06/28/19 11:44 11:53 WBC MCHC Lymphocytes # D-Dimer 2.07 H Sodium Potassium Chloride Carbon Dioxide BUN Creatinine Glucose POC Glucose (mg/dL) 192 H Calcium Lactate Dehydrogenase Troponin I Total Protein Albumin HDL Cholesterol Urine Appearance Urine Protein Urine Glucose (UA) Ur Leukocyte Esterase Urine WBC Urine WBC Clumps Ur Squamous Epith Cells Urine Bacteria Hyaline Casts Urine Mucus Coronavirus (PCR) - Diagnostic Findings Chest x-ray: image reviewed Assessment and Plan Plan: 1 COVID 19 infection which is probably an incidental finding as the patient's presentation was not consistent with this type of viral infection. her initial chest x-ray was within normal limits. Subsequent chest x-ray shows some vague infiltration of the left lung specially in the left upper lobe. No oxygen desaturation at this point in time the patient is actually taking well. The patient has some mild elevation of the LDH. The patient is afebrile. The patient has some mild lymphopenia. D-dimer is nonelevated. 2 diabetes mellitus type 2 with poor blood sugar control, with limited troponin leak 3 acute kidney injury, recovered 4 weight-loss and diminished oral intake 5 anxiety/panic seen by psychiatry started on Remeron 6 coronary artery disease with previous PCI 7 previous history of DVT 8 hypertension 9 hyperlipidemia 10 ALLERGIC rhinitis Plan Keep the patient up with isolation No need for systemic steroids Monitor oxygenation Medical management and control of blood sugar and treatment of anxiety/panic outpatient indication be resumed Obvious this was an incidental Covid 19 infection she'll be monitored for the next 24-48 hours future be kept up with isolation. Necessary precautions will be taken at time of discharge for this type of an infection. We'll continue to follow
[2019-06-28] MEDS ORDERED: ENOXAPARIN 40 MG/0.4 ML SYRINGE SQ SCH (17:00)
[2019-06-28 17:15] LABS: Glucose,Whole Blood 306 mg/dL (75-99)
[2019-06-28 20:23] LABS: Glucose,Whole Blood 253 mg/dL (75-99)
[2019-06-28] MEDS: MELATONIN 3 MG TABLET PO SCH (21:29)
[2019-06-28] MEDS: FAMOTIDINE 20 MG TAB PO SCH (21:29)
[2019-06-28] MEDS: INSULIN DETEMIR (LEVEMIR) 100 UNIT/ML SYR SQ SCH (21:30)
[2019-06-28] MEDS: ATORVASTATIN 20 MG TAB PO SCH (21:30)
[2019-06-28] MEDS: ENOXAPARIN 40 MG/0.4 ML SYRINGE SQ SCH (21:32)
[2019-06-28] MEDS: HYDROXYCHLOROQUINE SULFATE 200 MG TAB PO SCH (21:33)
--- NOTE | 2019-06-29 00:48 | P.CONS ---
History of Present Illness - Reason for Consult Consult date: 06/28/19 covid 19 infection Requesting physician: Mary Heath - Chief Complaint weakness and fall x 2 days - History of Present Illness Patient is a 69-year-old -[place] female presenting to the ER at [facility] on June 26, 2019 with chief complaints of feeling weak and unable to keep anything down symptom has been going on for about 3 days patient says she will take a few sips and will feel full did have feeling of nausea but no vomiting no abdominal pain or any diarrhea apparently the patient also felt weak and did have a fall while going to the bathroom but did not lose any consciousness patient denies any fever no headache or any URI symptoms patient was complaining of some shortness of breath and she also have a very minimal cough but not bringing up any sputum and no urinary symptoms with the symptom the patient was evaluated by the ER physician patient has been been afebrile patient did have mild leukopenia on admission as well as lymphopenia d-dimer elevated 2.07 patient troponin was elevated CRP of 31.8 elevated LDH urine mildly positive COVID-19 PCR was positive patient initial chest x-ray did not show any acute infiltrate however a chest x-ray this afternoon this shows patchy left-sided airspace disease infectious was consulted to guide her COVID-19 testing and need for antibiotic therapy. Review of Systems Positive point has been mentioned in HPI rest of the systems are negative Past Medical History Past Medical History: Coronary Artery Disease (CAD), Diabetes Mellitus, Deep Vein Thrombosis (DVT), GERD/Reflux, Hyperlipidemia, Hypertension, Osteoarthritis (OA), Vascular Disorder Additional Past Medical History / Comment(s): IDDM type I with diabetic neuropathy, narcolepsy, DVTs L lower extremity, vertigo occasionally, low back pian with bilateral sciatica, PAD, pneumothorax when pt was in her 20s with chest tube, constipation, bronchitis. History of Any Multi-Drug Resistant Organisms: None Reported Past Surgical History: Appendectomy, Cholecystectomy, Heart Catheterization With Stent, Hysterectomy, Tubal Ligation Additional Past Surgical History / Comment(s): PCI/stent, ectopic pregnancies with eventual total hysterectomy, EGD, colonoscopy, L breast biopsy-benign, bilateral carpal tunnel release, bilateral eyes laser surgery/lens. Past Anesthesia/Blood Transfusion Reactions: Previous Problems w/ Anesthesia, Postoperative Nausea & Vomiting (PONV) Additional Past Anesthesia/Blood Transfusion Reaction / Comm: PT STATES HER AND HER FAMILY HAVE DIFFICULTY WAKING UP Date of Last Stent Placement:: Past Psychological History: No Psychological Hx Reported Smoking Status: Former smoker Past Alcohol Use History: None Reported Past Drug Use History: None Reported - Past Family History Mother Family Medical History: Hypertension, Seizure Disorder Additional Family Medical History / Comment(s): Mother at age 75 Father Family Medical History: Renal Disease Additional Family Medical History / Comment(s): Father at age 58 from acute renal failure and he was an alcoholic. Son(s) Family Medical History: No Reported History Additional Family Medical History / Comment(s): Patient has 2 sons with no major medical problems. Medications and Allergies Home Medications Medication Instructions Recorded Confirmed Type Montelukast Sodium [Singulair] 10 mg PO HS PRN 01/30/19 06/26/19 History Rosuvastatin [Crestor] 10 mg PO HS 01/30/19 06/26/19 History Losartan [Cozaar] 50 mg PO BID #0 02/18/19 06/26/19 Rx Carvedilol [Coreg] 6.25 mg PO BID 06/26/19 06/26/19 History Chlorthalidone [Hygroton] 25 mg PO DAILY 06/26/19 06/26/19 History Diurex 1 tab PO HS 06/26/19 06/26/19 History Insulin Aspart [NovoLOG Flexpen] See Protocol SQ AC-TID 06/26/19 06/26/19 History Insulin Glargine,Hum.rec.anlog 18 unit SQ HS 06/26/19 06/26/19 History [Lantus Solostar] Allergies Allergy/AdvReac Type Severity Reaction Status Date / Time morphine AdvReac PASSES OUT Verified 06/26/19 18:41 nitroglycerin AdvReac PASSES OUT Verified 06/26/19 18:41 Sulfa (Sulfonamide AdvReac Itching Verified 06/26/19 18:41 Antibiotics) Physical Exam Vitals: Vital Signs Temp Pulse Resp BP Pulse Ox 06/28/19 12:00 98.2 F 72 18 160/95 97 06/28/19 08:00 97.8 F 70 18 147/79 98 06/28/19 03:58 98.6 F 95 18 145/97 99 06/27/19 22:41 98.8 F 80 16 127/69 96 Intake and Output 06/28/19 06/28/19 06/28/19 06:59 14:59 22:59 Intake Total 240 Output Total 300 Balance -60 Intake: Oral 240 Output: Urine 300 Other: Voiding Method Toilet # Voids 2 Weight 59.5 kg GENERAL DESCRIPTION: Elderly female lying in bed, no distress. No tachypnea or accessory muscle of respiration use. HEENT: Shows Pallor , no scleral icterus. Oral mucous membrane is dry. NECK: Trachea central, no thyromegaly. LUNGS: Unlabored breathing. Decreased breath on the base. No wheeze or crackle. HEART: S1, S2, regular rate and rhythm. ABDOMEN: Soft, no tenderness , guarding or rigidity EXTREMITIES: No edema of feet. SKIN: No rash, no masses palpable. NEUROLOGICAL: The patient is awake, alert, oriented x3, mood and affect normal. Results CBC & Chem 7: 06/28/19 08:44 06/28/19 08:44 Labs: Abnormal Lab Results - Last 24 Hours (Table) 04/27/19 06/27/19 06/27/19 Range/Units 02:36 16:37 20:33 MCHC (31.0-37.0) g/dL Lymphocytes # (1.0-4.8) k/uL D-Dimer (<0.60) mg/L FEU Carbon Dioxide (22-30) mmol/L BUN (7-17) mg/dL Glucose (74-99) mg/dL POC Glucose (mg/dL) 170 H 189 H (75-99) mg/dL Lactate Dehydrogenase (313-618) U/L C-Reactive Protein 31.8 H (<10.0) mg/L 06/28/19 06/28/19 06/28/19 Range/Units 06:19 08:22 08:44 MCHC 30.0 L (31.0-37.0) g/dL Lymphocytes # 0.8 L (1.0-4.8) k/uL D-Dimer (<0.60) mg/L FEU Carbon Dioxide (22-30) mmol/L BUN (7-17) mg/dL Glucose (74-99) mg/dL POC Glucose (mg/dL) 153 H (75-99) mg/dL Lactate Dehydrogenase 784 H (313-618) U/L C-Reactive Protein (<10.0) mg/L 06/28/19 06/28/19 06/28/19 Range/Units 08:44 11:44 11:53 MCHC (31.0-37.0) g/dL Lymphocytes # (1.0-4.8) k/uL D-Dimer 2.07 H (<0.60) mg/L FEU Carbon Dioxide 33 H (22-30) mmol/L BUN 31 H (7-17) mg/dL Glucose 151 H (74-99) mg/dL POC Glucose (mg/dL) 192 H (75-99) mg/dL Lactate Dehydrogenase (313-618) U/L C-Reactive Protein (<10.0) mg/L Microbiology - Last 24 Hours (Table) 06/26/19 22:42 Urine Culture - Preliminary Urine,Voided Gram Neg Bacilli Assessment and Plan Assessment: 1-patient presented to hospital with weakness fall in this patient complaining of GI symptom of decreased appetite and some nausea she also have some cough but no sputum production initial chest x-ray did not show any acute infiltrate repeated showing left-sided infiltrate in this patient who did have elevated CRP LDH and lymphopenia high clinical suspicious for acute COVID-19 infection. 2-positive UA and concern for enteric gram-negative UTI (1) Pneumonia due to COVID-19 virus Current Visit: Yes Status: Acute Code(s): U07.1 - COVID-19; J12.89 - OTHER VIRAL PNEUMONIA SNOMED Code(s): 224687923 (2) UTI (urinary tract infection) Current Visit: Yes Status: Acute Code(s): N39.0 - URINARY TRACT INFECTION, SITE NOT SPECIFIED SNOMED Code(s): 94347924 Plan: 1-we will start the patient on Plaquenil per protocol in addition to the Lovenox and Pepcid we will hold on the, steroids as the patient is currently non- requiring any supplemental oxygen and seem to have a problem with elevated blood sugar 2-droplet isolation and respiratory support 3-Rocephin 1 g daily continue for her UTI We will follow on clinical condition and cultures to further adjust medication if needed Thank you for this consultation we will follow the patient along with you Time with Patient: Greater than 30
[2019-06-29 06:30] LABS: Glucose,Whole Blood 107 mg/dL (75-99)
[2019-06-29] MEDS: INSULIN ASPART (NovoLOG) 100 UNIT/ML VIAL SQ SCH ×3 (06:36→17:46)
[2019-06-29] MEDS: CARVEDILOL 6.25 MG TAB PO SCH ×2 (06:53→17:45)
--- NOTE | 2019-06-29 08:40 | P.PN ---
Subjective Progress Note Date: 06/29/19 This is a 69-year-old -Citizen Of [place] female one of my patient with a previous medical history significant for diabetes mellitus type 1 with diabetic polyneuropathy, hypertension and hypertensive cardiovascular disease with left ventricular hypertrophy, CAD status post PCI of the PDA off the RCA back in 2010, history of DVT in lower extremity, history of narcolepsy, significant weight loss over the last few months since her with metastatic lung cancer, and she had lost quite a bit of weight and not controlling her diabetes very well her hemoglobin A1c is around 14%, patient developed to have a significant poor appetite associated with increased anxiety about taking her insulin, patient was brought into the emergency department at [facility] yesterday after I spoke with her grandson yesterday stating the patient is nauseated and not able to eat or drink for the past few days I had a phone conversation with her about 24 hours prior to that and she denied any of the that, patient was in some distress she was brought into the ER and she was found to have an acute kidney injury with a creatinine of 3.26, patient was started on IV fluid and she was admitted to the hospital patient did have a panic attack while she was on the floor and she was yelling for help and she became quite upset and she wanted to be discharged from the hospital I came up to the floor to see the patient and I tried counseling her about that fact we are going to help her out here we had contacted mental health evaluation due to her anxiety and panic attacks, and we will continue to monitor the patient very closely, patient also would be seen in consultation by nephrology for evaluation of her acute kidney injury which I believe is due to poor oral intake of fluid and food at this point. 06/26: Patient sitting up in bed today she is feeling a lot better today she is more awake and more alert she has no panic attack overnight she slept well last night she did see cardiology earlier, she has no chest pain or shortness breath, she has no abdominal pain she continues to eat the less than 25% of her meals, she will be seen in consultation by psychiatry she was at certain point on Susan ajith but she could not take the medication due to side effects, her creatinine is coming down, we will check ultrasound of the kidneys to make sure there is no hydronephrosis patient will be seen later on by nephrology. 06/27: Patient is sitting up in bed that she is complaining of dry cough, her Cov id 19 testing was positive she does not believe that she wants second opinion, she has been in contact isolation with droplet isolation from the get go, she will be started on Rocephin 1 g IV piggyback every 24 hours, infectious disease consultation will be obtained from Dr. Guzman. Patient kidney function tests normalizes, patient was seen in consultation by cardiology underwent echo care gram the result of which is pending at the time of dictation. 06/28: Patient has been seen by Dr. Guzman and started on Plaquenil, Lovenox. Patient continues to have a cough with sputum production and Mucinex added. Repeat chest x-ray reveals left-sided airspace disease. Patient has been afebrile, heart rate 72, blood pressure 132/67, pulse ox 92-97% on room air. Patient has been seen and followed by Dr. Causey. No plan for systemic steroids. She is also followed by Dr. Hood with recommendations to continue to hold ARB and diuretics. Coreg can be adjusted for uncontrolled blood pressure. Blood pressure appears to be improved today. Blood sugars this morning 107 but was 306 yesterday afternoon. The patient will remain on the cardiac stepdown unit for 1 more day and then plan to transfer to [facility]. Objective - Vital Signs Vital signs: Vital Signs Temp 98.1 F 06/29/19 04:00 Pulse 72 06/29/19 04:00 Resp 17 06/29/19 04:00 BP 132/67 06/29/19 04:00 Pulse Ox 92 L 06/29/19 04:00 Intake & Output 06/28/19 06/29/19 06/29/19 18:59 06:59 18:59 Intake Total 240 Output Total 1300 Balance 240 -1300 Weight 60.7 kg Intake: Oral 240 Output: Urine 1300 Other: Voiding Method Incontinent Toilet # Voids 2 3 # Bowel Movements 1 - Exam Review of Systems Constitutional: Reports anorexia, Reports daytime sleepiness, Reports fatigue, Reports malaise, Reports weakness, Reports weight loss, Denies chronic headaches, Denies fever, Denies lethargy Ears: deny: decreased hearing Ears, nose, mouth and throat: Denies dysphagia, Denies neck lump, Denies sore throat Cardiovascular: Denies chest pain, Denies decreased exercise tolerance, Denies lightheadedness, Denies rapid heart beat, Denies shortness of breath, Denies syncope Respiratory: Denies congestion, report cough, Denies cough with sputum, Denies home oxygen, Denies sleep apnea, Denies snoring, Denies wheezing Gastrointestinal: Reports early satiety, Reports loss of appetite, Reports nausea, Denies abdominal pain, Denies bloating, Denies BRBPR, Denies dyspepsia, Denies heartburn, Denies melena, Denies vomiting Genitourinary: Denies dysuria, Denies nocturia Menstruation: Reports postmenopausal Musculoskeletal: Denies myalgias Musculoskeletal: absent: ankle pain, ankle stiffness, ankle swelling, elbow pain, elbow stiffness, elbow swelling, foot pain, foot stiffness, foot swelling, hand pain, hand stiffness, hand swelling, hip pain, hip stiffness, hip swelling, knee pain, knee stiffness, knee swelling, shoulder pain, shoulder stiffness, shoulder swelling, wrist pain, wrist stiffness, wrist swelling Integumentary: Denies pruritus, Denies rash Neurological: Denies numbness, Denies weakness Psychiatric: Reports anxiety, Reports anxiety attacks, Reports change in appetite, Reports depression, Reports hypersomnia, Reports irritability, Reports mood swings, Reports sadness/tearfulness, Reports sleep disturbances, Denies hallucinations, Denies hopelessness, Denies insomnia, Denies paranoia, Denies s uicidal ideation Endocrine: Denies fatigue, Denies weight change Physical Examination: GEN: This is a thin 69-year-old -Citizen Of [place] female. She is resting in bed and appears to be comfortable. HEENT: Head is atraumatic, normocephalic, pupils were equal round reactive to light and accommodation, extraocular muscle movement were intact, mucous membranes of the mouth are somewhat dry Neck: Supple no JVP. Chest: Crackles and the left base and egophony in the left lower base, no wheezes, no chest wall tenderness, no intercostal retractions. Heart: First heart sound is depressed, second heart sound is normal, there is systolic ejection murmur 2/6 located in the left sternal border. Abdomen: Soft, nontender, nondistended, positive bowel sounds. Extremities: There is no edema, no calf tenderness, dorsalis pedis +1 bilaterally. Neurologic examination: Patient is awake alert and oriented 3, cranial nerves III-12 appear grossly intact, muscle power 4 out of 5 in upper and lower extremities bilaterally, deep tendon reflexes were normal. - Labs CBC & Chem 7: 06/28/19 08:44 06/28/19 08:44 Labs: Abnormal Lab Results - Last 24 Hours (Table) 04/27/19 06/28/19 06/28/19 Range/Units 02:36 08:22 08:44 MCHC 30.0 L (31.0-37.0) g/dL Lymphocytes # 0.8 L (1.0-4.8) k/uL D-Dimer (<0.60) mg/L FEU Carbon Dioxide (22-30) mmol/L BUN (7-17) mg/dL Glucose (74-99) mg/dL POC Glucose (mg/dL) (75-99) mg/dL Lactate Dehydrogenase 784 H (313-618) U/L C-Reactive Protein 31.8 H (<10.0) mg/L 06/28/19 06/28/19 06/28/19 Range/Units 08:44 11:44 11:53 MCHC (31.0-37.0) g/dL Lymphocytes # (1.0-4.8) k/uL D-Dimer 2.07 H (<0.60) mg/L FEU Carbon Dioxide 33 H (22-30) mmol/L BUN 31 H (7-17) mg/dL Glucose 151 H (74-99) mg/dL POC Glucose (mg/dL) 192 H (75-99) mg/dL Lactate Dehydrogenase (313-618) U/L C-Reactive Protein (<10.0) mg/L 06/28/19 06/28/19 06/29/19 Range/Units 16:45 20:21 06:29 MCHC (31.0-37.0) g/dL Lymphocytes # (1.0-4.8) k/uL D-Dimer (<0.60) mg/L FEU Carbon Dioxide (22-30) mmol/L BUN (7-17) mg/dL Glucose (74-99) mg/dL POC Glucose (mg/dL) 306 H 253 H 107 H (75-99) mg/dL Lactate Dehydrogenase (313-618) U/L C-Reactive Protein (<10.0) mg/L Microbiology - Last 24 Hours (Table) 06/26/19 22:42 Urine Culture - Preliminary Urine,Voided Gram Neg Bacilli Assessment and Plan Plan: 1. Acute kidney injury due to acute tubular necrosis secondary to poor oral intake of fluid and food. Patient was started on IV fluid in the form of normal saline at 100 mL an hour which has been discontinued, we will monitor the patient input and output and daily weight monitor the patient CMP, consult with nephrology appreciated. 3. Coated 19 positive. Continue contact isolation and droplet precautions, consult with Dr. Guzman appreciated. Repeat chest x-ray as above. Patient's been started on Plaquenil and transition to Lovenox. 2. Diabetes mellitus type 2 with severe hyperglycemia. Continue Lantus 12 units SC at bedtime as the patient is not eating more than 5-10% of her meals along with a sliding scale insulin. 3. Panic attack/severe anxiety. Patient was seen in consultation by Dr. Benson however she refused to be started any treatment at this time and she wanted to seek help as an outpatient. 4. CAD post-PCI. Continue patient on Coreg 6.25 mg orally twice every day, aspirin 325 mg orally once every day him a Crestor 10 mg orally once every day. 5. Hypertension and hypertensive cardiovascular disease. Continue Coreg 6.25 mg orally twice every day, discontinue hydrochlorothiazide as well as losartan due to acute kidney injury. 6. Hyperlipidemia. Continue patient on Crestor 10 mg orally once every day. 7. ALLERGIC rhinitis. Continue singular 10 mg at bedtime. 8. History of narcolepsy. Patient never was treated for that, she declined taking medications due to side effects. 9. Slight elevation of the troponin I believed due to her kidney injury. Cardiology consult appreciated 10. DVT prophylaxis. Continue heparin 5000 units subcutaneously every 12 hours. 11. GI prophylaxis. Continue patient on Protonix 40 mg orally once every day. Discharge plan: Return home Impression and plan of care have been directed as dictated by the signing physician. Faith Camarillo nurse practitioner acting as scribe for signing physician.
[2019-06-29] MEDS: FAMOTIDINE 20 MG TAB PO SCH ×2 (09:50→21:08)
[2019-06-29] MEDS: ASPIRIN 325 MG TAB PO SCH (09:51)
[2019-06-29] MEDS: ENOXAPARIN 40 MG/0.4 ML SYRINGE SQ SCH (09:51)
[2019-06-29] MEDS: guaiFENesin 600 MG TABLET.ER PO SCH ×2 (09:52→21:08)
[2019-06-29] MEDS: HYDROXYCHLOROQUINE SULFATE 200 MG TAB PO SCH ×2 (09:54→21:08)
[2019-06-29 11:02] LABS: Ferritin 248.2 ng/mL (10.0-291.0)
[2019-06-29 12:18] LABS: Glucose,Whole Blood 230 mg/dL (75-99)
[2019-06-29] MEDS: ENOXAPARIN 60 MG/0.6 ML SYRINGE SQ SCH ×2 (12:41→22:20)
--- NOTE | 2019-06-29 13:35 | P.PN ---
Subjective Progress Note Date: 06/29/19 This is a 69-year-old -Citizen Of [place] female patient with past medical history significant for coronary artery disease and prior PCI of the PDA in 2010, paroxysmal atrial fibrillation, history of DVT in the lower extremity, diabetes, hypertension, lipidemia, who presented to the hospital with hypoglycemia. Patient initially was seen in consultation by cardiology because of an elevated troponin. She has also tested positive for cocaine. Patient also had some new T wave changes noted on EKG. She was seen in consultation over the weekend by Dr. Means. The recommendation was to continue her Coreg, continue aspirin and Lipitor and hold her losartan because of hypotension. Blood pressure today 156/70 with a heart rate in the 70s, 98% on room air. An echocardiogram with Doppler study was performed and the results are yet pending. Objective - Vital Signs Vital signs: Vital Signs Temp 98.1 F 06/29/19 08:00 Pulse 72 06/29/19 08:00 Resp 17 06/29/19 08:00 BP 157/75 06/29/19 08:00 Pulse Ox 98 06/29/19 08:00 Intake & Output 06/28/19 06/29/19 06/29/19 18:59 06:59 18:59 Intake Total 240 Output Total 1300 400 Balance 240 -1300 -400 Weight 60.7 kg Intake: Oral 240 Output: Urine 1300 400 Other: Voiding Method Incontinent Toilet # Voids 2 3 1 # Bowel Movements 1 - Exam Physical examination: Gen: This is a a 69-year-old thin cachectic appearing -Citizen Of [place] female. VS: Afebrile, heart rate 72, blood pressure 132/67, pulse ox 98% on room air. HEENT: Head is atraumatic, normocephalic. Pupils equal, round. Sclerae is anicteric. NECK: Supple. No JVD. No lymphadenopathy. No thyromegaly. LUNGS: Clear to auscultation. No wheezes or rhonchi. No intercostal retractions. HEART: Regular rate and rhythm. 2/6 systolic murmur. ABDOMEN: Soft. Bowel sounds are present. No masses. No tenderness. EXTREMITIES: No pedal edema. No calf tenderness. NEUROLOGICAL: Patient is awake, alert and oriented x3. Cranial nerves 2 through 12 are grossly intact. - Labs CBC & Chem 7: 06/28/19 08:44 06/28/19 08:44 Labs: Abnormal Lab Results - Last 24 Hours (Table) 04/27/19 06/28/19 06/28/19 Range/Units 02:36 16:45 20:21 POC Glucose (mg/dL) 306 H 253 H (75-99) mg/dL C-Reactive Protein 31.8 H (<10.0) mg/L 06/29/19 06/29/19 Range/Units 06:29 12:15 POC Glucose (mg/dL) 107 H 230 H (75-99) mg/dL C-Reactive Protein (<10.0) mg/L Microbiology - Last 24 Hours (Table) 06/26/19 22:42 Urine Culture - Final Urine,Voided Escherichia coli Assessment and Plan Plan: Assessment and plan: #1 Elevated troponin likely secondary to acute kidney injury, and CoVID 19 #2 Acute kidney injury #3 Paroxysmal atrial fibrillation diagnosed in February 2019 #4 History of CAD status post PCI #5 Hypertension #6 Diabetes mellitus type 2 #7 hyperlipidemia #8 positive Covid 19 Plan From cardiology's perspective, we will review the patient's echocardiogram with Doppler study if the LV function is normal we'll follow this patient on an as- needed basis only. DNP note has been reviewed, I agree with a documented findings and plan of care. Patient was seen and examined.
--- NOTE | 2019-06-29 15:12 | P.PN ---
Subjective Progress Note Date: 06/29/19 Principal diagnosis: Covid 19 related pneumonitis A 69-year-old -[place] female patient with multiple comorbidities including coronary artery disease, previous PCI involving the PDA and RCA in addition to previous history of DVT of the lower extremity, diabetes mellitus, hypertension who came into the hospital on 06/26/2019 as the patient developed weight loss, poor appetite, and poor sugar control for her diabetes which she attributes to anxiety and grief that she encounters following the loss of her for metastatic lung cancer. The patient had a hemoglobin A1c of 14. When she came into the hospital, she was also found to have an acute kidney injury with a creatinine of 3.26 and she was started on IV fluids. She was quite panicky and she was having episodes of panic attacks. During the course of her treatment, the patient denied having any chest pain or shortness of breath. Denying of any nausea or vomiting. She was eating approximately 25% of her meals. Psychiatric was consulted and the patient was started on Remeron which improved her sleeping patterns and panic. Creatinine was also improving and the patient's renal function continued to steadily improve. Ultrasound the kidneys showed no evidence of any hydronephrosis. Meanwhile, the patient was checked for covert 19 infection and she do not to be positive. She was placed in the upper ventilation and Pulmicort consultation was requested. Note that the patient denied having any respiratory complaints. Her white cell count was at 5.1. She did have some mild lymphopenia with an absolute lymphocyte count of 800. Her d-dimer was at 107. BUN is 31 with a creatinine of 1.0 which is down significantly from 3.26. She did have an LDH level of 784. Her troponins were leaking with a maximum troponin level of 0.198. The chest exit was on time of admission on 06/26/2019 was essentially within normal limits. The follow-up chest x-ray from today shows development of a patchy left-sided disease. Nevertheless the patient's pulse ox is around 98% on room air oxygen. She is currently on subcu heparin for DVT prophylaxis. He is on Levemir insulin. She is also on Coreg and aspirin and IV Rocephin as an empiric antibiotic coverage. She is afebrile. On 06/29/2019 patient seen in follow-up on [facility] care unit, awake and alert, in no acute distress, she is on room air pulse ox is 98%, she has been afebrile, breathing is comfortable, no complaints of chest pain, no cough, no congestion. She is on empiric antibiotic treatments in the form of Rocephin, oral Pepcid, Plaquenil ordered by ID service, and Lovenox at 40 mg twice daily. Her d-dimer is 2.07, and we will increase her The next 2 therapeutic dose at 60 mg daily, today's labs have been reviewed, showing white blood cell count of 5.1, hemoglobin of 11.5 electrolytes are within normal limits with the exception of CO2 which is at 33, BUN of 31 and creatinine is improved and is down to 1. No nausea or vomiting, LDH on today's labs is 784, normal CRP today, pro-calcitonin was 0.18. Patient has been refusing a lot of her medications including medications for COVID 19 including Lovenox injections, and Plaquenil. No chest x-ray today, his chest x-ray showed patchy left-sided airspace disease. C lillie patient appears to be stable, renal profile is improving, her ARB remains on hold per nephrology recommendations. Objective - Vital Signs Vital signs: Vital Signs Temp 98.1 F 06/29/19 12:00 Pulse 69 06/29/19 12:00 Resp 17 06/29/19 12:00 BP 195/91 06/29/19 12:00 Pulse Ox 98 06/29/19 12:00 Intake & Output 06/28/19 06/29/19 06/29/19 18:59 06:59 18:59 Intake Total 240 Output Total 1300 400 Balance 240 -1300 -400 Weight 60.7 kg Intake: Oral 240 Output: Urine 1300 400 Other: Voiding Method Incontinent Toilet # Voids 2 3 1 # Bowel Movements 1 - Exam GENERAL EXAM: Alert, very pleasant, 69-year-old -[place] female, currently on room air with a pulse ox of 98%, comfortable in no apparent distres s. HEAD: Normocephalic/atraumatic. EYES: Normal reaction of pupils, equal size. Conjunctiva pink, sclera white. NOSE: Clear with pink turbinates. THROAT: No erythema or exudates. NECK: No masses, no JVD, no thyroid enlargement, no adenopathy. CHEST: No chest wall deformity. Symmetrical expansion. LUNGS: Equal air entry with no crackles, wheeze, rhonchi or dullness. CVS: Regular rate and rhythm, normal S1 and S2, no gallops, no murmurs, no rubs ABDOMEN: Soft, nontender. No hepatosplenomegaly, normal bowel sounds, no guarding or rigidity. EXTREMITIES: No clubbing, no edema, no cyanosis, 2+ pulses and upper and lower extremities. MUSCULOSKELETAL: Muscle strength and tone normal. SPINE: No scoliosis or deformity SKIN: No rashes CENTRAL NERVOUS SYSTEM: Alert and oriented -3. No focal deficits, tone is normal in all 4 extremities. PSYCHIATRIC: Alert and oriented -3. Appropriate affect. Intact judgment and insight. - Labs CBC & Chem 7: 06/28/19 08:44 06/28/19 08:44 Labs: Abnormal Lab Results - Last 24 Hours (Table) 04/27/19 04/27/19 06/28/19 Range/Units 02:36 02:36 16:45 POC Glucose (mg/dL) 306 H (75-99) mg/dL C-Reactive Protein 31.8 H (<10.0) mg/L Procalcitonin 0.18 H (0.02-0.09) ng/mL 06/28/19 06/29/19 06/29/19 Range/Units 20:21 06:29 12:15 POC Glucose (mg/dL) 253 H 107 H 230 H (75-99) mg/dL C-Reactive Protein (<10.0) mg/L Procalcitonin (0.02-0.09) ng/mL Microbiology - Last 24 Hours (Table) 06/26/19 22:42 Urine Culture - Final Urine,Voided Escherichia coli Assessment and Plan Plan: Assessment: 1 COVID 19 infection which is probably an incidental finding as the patient's presentation was not consistent with this type of viral infection. her initial chest x-ray was within normal limits. Subsequent chest x-ray shows some vague infiltration of the left lung specially in the left upper lobe. No oxygen desaturation at this point in time the patient is actually taking well. The patient has some mild elevation of the LDH. The patient is afebrile. The patient has some mild lymphopenia. D-dimer is nonelevated. 2 diabetes mellitus type 2 with poor blood sugar control, with limited troponin leak 3 acute kidney injury, recovered 4 weight-loss and diminished oral intake 5 anxiety/panic seen by psychiatry started on Remeron 6 coronary artery disease with previous PCI 7 previous history of DVT 8 hypertension 9 hyperlipidemia 10 ALLERGIC rhinitis Plan: We will increase the Lovenox to 60 mg twice daily, continue empiric antibiotics, clinically patient is stable, yesterday's chest x-ray shows patchy left-sided infiltrate, no worsening dyspnea, patient is on room air. Has been refusing some of her medications including the Lovenox. Clinically appears to be doing well, no worsening dyspnea, no nausea or vomiting. From pulmonary perspective she could even be considered for discharge home if cleared by the services. I performed a history & physical examination of the patient and discussed their management with my nurse practitioner, Kiesha Santiago. I reviewed the nurse practitioner's note and agree with the documented findings and plan of care. Lung sounds are positive for clear breath sounds. The findings and the im pression was discussed with the patient. I attest to the documentation by the nurse practitioner. Time with Patient: Less than 30
[2019-06-29 17:09] LABS: Glucose,Whole Blood 357 mg/dL (75-99)
--- NOTE | 2019-06-29 18:48 | PN ---
PROGRESS NOTE DATE OF SERVICE: 06/29/2019 REASON FOR FOLLOWUP: Acute COVID-19 pneumonia. INTERVAL HISTORY: The patient is currently afebrile. The patient is breathing comfortably. The patient denies having any chest pain. She did have some cough but no sputum. No nausea. No vomiting. No abdominal pain or diarrhea. PHYSICAL EXAMINATION: Blood pressure 157/75 with a pulse of 72, temperature 98.1. She is 98% on room air. General description is an elderly female up in the bed in no distress. RESPIRATORY SYSTEM: Unlabored breathing with decreased breath sounds at the base. No wheeze. HEART: S1, S2. Regular rate and rhythm. ABDOMEN: Soft. No tenderness. LABS: Hemoglobin 11.5, white count 5.1. Urine with E coli. DIAGNOSTIC IMPRESSION AND PLAN: 1. Patient with acute COVID-19 infection with evidence of pneumonia on the chest x- ray, elevated inflammatory markers. Will keep the patient on Plaquenil to finish her 5-day course of therapy in addition to the Lovenox and Pepcid steroids, as no hypoxemia. 2. Escherichia coli urinary tract infection, covered with Rocephin to continue. MMODL / IJN: [id number] /
[2019-06-29 20:48] LABS: Glucose,Whole Blood 383 mg/dL (75-99)
--- NOTE | 2019-06-29 20:53 | PN ---
PROGRESS NOTE Patient is seen for followup for acute kidney injury which was mainly prerenal, currently significantly improved. Serum creatinine is down to 1.0 from 3.26 on admission. Patient initially received fluids, which are now discontinued. She also tested positive for COVID-19. Currently patient has no significant symptoms. She is started on hydroxychloroquine. On examination today, blood pressure was elevated at 195/91, heart rate of 69 per minute. She is afebrile. Examination shows patient is euvolemic, with no evidence of edema in lower extremities. Labs show sodium 139, potassium 3.6, chloride 102, CO2 33, BUN 31, creatinine 1.0, hemoglobin 11.5, white cell count 5.1. ASSESSMENT: 1. Acute kidney injury, mostly prerenal, also associated with underlying COVID-19 infection, currently improved. Patient is off of IV fluids. She is encouraged to maintain good oral intake and hydration. 2. Underlying COVID-19 infection, started on hydroxychloroquine. 3. Volume depletion on initial admission, currently improved. 4. Type 1 diabetes with diabetic neuropathy. 5. Coronary artery disease with history of coronary artery stenting. 6. Hypertension, currently uncontrolled. PLAN: Increase Coreg, as blood pressure remains uncontrolled, and repeat labs in a.m. MMODL / IJN: [id number] /
[2019-06-29] MEDS: MELATONIN 3 MG TABLET PO SCH (21:08)
[2019-06-29] MEDS: ATORVASTATIN 20 MG TAB PO SCH (21:08)
[2019-06-29] MEDS: INSULIN DETEMIR (LEVEMIR) 100 UNIT/ML SYR SQ SCH (21:09)
[2019-06-30 03:40] VITALS: RESP 17; TEMP 98.1
[2019-06-30 06:17] LABS: Glucose,Whole Blood 277 mg/dL (75-99)
[2019-06-30] MEDS: INSULIN ASPART (NovoLOG) 100 UNIT/ML VIAL SQ SCH (06:52)
[2019-06-30] MEDS ORDERED: CARVEDILOL 6.25 MG TAB PO SCH (07:30)
[2019-06-30] MEDS ORDERED: ASPIRIN 81 MG PO SCH (09:00)
[2019-06-30] MEDS: HYDROXYCHLOROQUINE SULFATE 200 MG TAB PO SCH (09:33)
[2019-06-30] MEDS: FAMOTIDINE 20 MG TAB PO SCH (09:34)
[2019-06-30] MEDS: guaiFENesin 600 MG TABLET.ER PO SCH (09:34)
[2019-06-30 09:59] VITALS: BP 153/78; PULSE 71
[2019-06-30] MEDS: ENOXAPARIN 60 MG/0.6 ML SYRINGE SQ SCH (10:49)
--- NOTE | 2019-06-30 11:40 | P.DS ---
Providers Date of admission: 06/26/19 17:50 Expected date of discharge: 06/30/19 Attending physician: Mary Heath Consults: 06/26/19 17:41 Consult Physician Stat Consulting Provider: Leslye Hood Consult Reason/Comments: Acute kidney failure, weakness Do you want consulting provider notified?: Yes Consult Physician Urgent Consulting Provider: [facility] Consult Reason/Comments: Weakness, elevated troponin, EKG changes Do you want consulting provider notified?: Yes 06/26/19 20:42 Consult Physician Routine Consulting Provider: Humphrey Nino Consult Reason/Comments: Anxiety/panic attacks. Do you want consulting provider notified?: Yes 06/28/19 11:12 Consult Physician Routine Consulting Provider: Al Guzman Consult Reason/Comments: Positive Covid-19 Do you want consulting provider notified?: Yes 06/28/19 11:13 Consult Physician Routine Consulting Provider: Kim Causey Consult Reason/Comments: positive covid 19 Do you want consulting provider notified?: Yes 06/28/19 11:16 Consult Physician Routine Consulting Provider: Al Guzman Consult Reason/Comments: COVID-19 Do you want consulting provider notified?: Yes Primary care physician: Mary Heath Hospital Course: This is a 69-year-old -[place] female one of my patient with a previous medical history significant for diabetes mellitus type 1 with diabetic polyneuropathy, hypertension and hypertensive cardiovascular disease with left ventricular hypertrophy, CAD status post PCI of the PDA off the RCA back in 2010, history of DVT in lower extremity, history of narcolepsy, significant weight loss over the last few months since her with metastatic lung cancer, and she had lost quite a bit of weight and not controlling her diabetes very well her hemoglobin A1c is around 14%, patient developed to have a significant poor appetite associated with increased anxiety about taking her insulin, patient was brought into the emergency department at [facility] yesterday after I spoke with her grandson yesterday stating the patient is nauseated and not able to eat or drink for the past few days I had a phone conversation with her about 24 hours prior to that and she denied any of the that, patient was in some distress she was brought into the ER and she was found to have an acute kidney injury with a creatinine of 3.26, patient was started on IV fluid and she was admitted to the hospital patient did have a panic attack while she was on the floor and she was yelling for help and she became quite upset and she wanted to be discharged from the hospital I came up to the floor to see the patient and I tried counseling her about that fact we are going to help her out here we had contacted mental health evaluation due to her anxiety and panic attacks, and we will continue to monitor the patient very closely, patient also would be seen in consultation by nephrology for evaluation of her acute kidney injury which I believe is due to poor oral intake of fluid and food at this point. 06/26: Patient sitting up in bed today she is feeling a lot better today she is more awake and more alert she has no panic attack overnight she slept well last night she did see cardiology earlier, she has no chest pain or shortness breath, she has no abdominal pain she continues to eat the less than 25% of her meals, she will be seen in consultation by psychiatry she was at certain point on Remeron but she could not take the medication due to side effects, her creatinine is coming down, we will check ultrasound of the kidneys to make sure there is no hydronephrosis patient will be seen later on by nephrology. 06/27: Patient is sitting up in bed that she is complaining of dry cough, her Covid 19 testing was positive she does not believe that she wants second opinion, she has been in contact isolation with droplet isolation from the [facility], she will be started on Rocephin 1 g IV piggyback every 24 hours, infectious disease consultation will be obtained from Dr. Guzman. Patient kidney function tests normalizes, patient was seen in consultation by cardiology underwent echo care gram the result of which is pending at the time of dictation. 06/28: Patient has been seen by Dr. Guzman and started on Plaquenil, Lovenox. Patient continues to have a cough with sputum production and Mucinex added. Repeat chest x-ray reveals left-sided airspace disease. Patient has been afebrile, heart rate 72, blood pressure 132/67, pulse ox 92-97% on room air. Patient has been seen and followed by Dr. Causey. No plan for systemic steroids. She is also followed by Dr. Hood with recommendations to continue to hold ARB and diuretics. Coreg can be adjusted for uncontrolled blood pressure. Blood pressure appears to be improved today. Blood sugars this morning 107 but was 306 yesterday afternoon. The patient will remain on the cardiac stepdown unit for 1 more day and then plan to transfer to [facility]. 06/29: Yesterday, patient refused Plaquenil and Lovenox. She did take the p.m. dose of Plaquenil. Coreg has been adjusted by Dr. Hood and a new prescription will be sent for the patient. Patient to remain off losartan at the time of discharge as well. Patient states that she slept okay. She complains of cough without sputum production. She has been afebrile, heart rate 71, blood pressure 153/78 and pulse ox 97% on room air. Urine culture positive for pansensitive E. coli. Blood sugars are running in the 200s and one reading of 383. Patient will resume her home insulin regime. Patient will be discharged home today in stable condition. Discharge diagnoses: 1. Acute kidney injury due to acute tubular necrosis secondary to poor oral intake of fluid and food. 3. Covid 19 positive. 2. Diabetes mellitus type 2 with severe hyperglycemia. 3. Panic attack and severe anxiety. 4. CAD post-PCI. 5. Hypertension and hypertensive cardiovascular disease. 6. Hyperlipidemia. 7. ALLERGIC rhinitis. 8. History of narcolepsy. 9. Slight elevation of the troponin due to her kidney injury. Discharge plan: Return home Impression and plan of care have been directed as dictated by the signing physician. Faith Camarillo nurse practitioner acting as scribe for signing physician. Patient Condition at Discharge: Good Plan - Discharge Summary Discharge Rx Participant: Yes New Discharge Prescriptions: New Aspirin 81 mg PO DAILY chew Cefuroxime Axetil [Ceftin] 500 mg PO BID 7 Days #14 tab Melatonin 6 mg PO HS tablet guaiFENesin [Mucinex] 600 mg PO Q12HR tablet.er Hydroxychloroquine Sulfate [Plaquenil] 200 mg PO BID #8 tab Carvedilol [Coreg] 12.5 mg PO BID #60 tablet Continue Montelukast Sodium [Singulair] 10 mg PO HS PRN PRN Reason: Allergy Symptoms Rosuvastatin [Crestor] 10 mg PO HS Insulin Glargine,Hum.rec.anlog [Lantus Solostar] 18 unit SQ HS Insulin Aspart [NovoLOG Flexpen] See Protocol SQ AC-TID Diurex 1 tab PO HS Discontinued Losartan [Cozaar] 50 mg PO BID #0 Chlorthalidone [Hygroton] 25 mg PO DAILY Carvedilol [Coreg] 6.25 mg PO BID Discharge Medication List Montelukast Sodium [Singulair] 10 mg PO HS PRN 01/30/19 [History] Rosuvastatin [Crestor] 10 mg PO HS 01/30/19 [History] Diurex 1 tab PO HS 06/26/19 [History] Insulin Aspart [NovoLOG Flexpen] See Protocol SQ AC-TID 06/26/19 [History] Insulin Glargine,Hum.rec.anlog [Lantus Solostar] 18 unit SQ HS 06/26/19 [History] Aspirin 81 mg PO DAILY chew 06/30/19 [Rx] Carvedilol [Coreg] 12.5 mg PO BID #60 tablet 06/30/19 [Rx] Cefuroxime Axetil [Ceftin] 500 mg PO BID 7 Days #14 tab 06/30/19 [Rx] Hydroxychloroquine Sulfate [Plaquenil] 200 mg PO BID #8 tab 06/30/19 [Rx] Melatonin 6 mg PO HS tablet 06/30/19 [Rx] guaiFENesin [Mucinex] 600 mg PO Q12HR tablet.er 06/30/19 [Rx] Follow up Appointment(s)/Referral(s): Mary Heath MD [Primary Care Provider] - 1 Week (please call office to schedule an appointment) Patient Instructions/Handouts: Acute Kidney Injury (DC), Weakness (DC) Activity/Diet/Wound Care/Special Instructions: Quarantine for 14 days Discharge Disposition: HOME SELF-CARE
[2019-06-30 11:55] LABS: Glucose,Whole Blood 188 mg/dL (75-99)
--- NOTE | 2019-06-30 14:04 | PN ---
PROGRESS NOTE DATE OF SERVICE: 06/30/2019 REASON FOR FOLLOWUP: 1. Acute COVID-19 pneumonia. 2. E coli urinary tract infection. INTERVAL HISTORY: The patient is currently afebrile. The patient is feeling better. Breathing comfortably. Denies having any chest pain or any worsening cough. No vomiting or any diarrhea. PHYSICAL EXAMINATION: Blood pressure 150/78 with a pulse of 71, temperature 98.1. She is 97% on room air. General description is an elderly female, up in bed in no distress. Complete is not done because of the COVID-19. LABS: No new labs have been obtained today. Urine has been E coli. DIAGNOSTIC IMPRESSION AND PLAN: 1. Patient with acute COVID-19 pneumonia. She will finish a 5-day course of oral Plaquenil along with zinc, Pepcid. 2. The patient with E coli urinary tract infection. Will finish therapy with oral Ceftin. MMODL / IJN: [id number] /
--- NOTE | 2019-06-30 15:54 | PN ---
PROGRESS NOTE Patient is seen for followup for acute kidney injury. She is currently resting comfortably. Patient states she might be going home. She has been eating well. No complaints of nausea or vomiting. PHYSICAL EXAMINATION: On examination today, blood pressure was 153/78, heart rate 71 per minute. She is afebrile. Examination shows patient is euvolemic, with no evidence of edema in the lower extremities. DIGITAL STRATEGIST SENIOR MANAGER exam is grossly intact. LABS: Labs from June 27 show serum creatinine down to 1.0. Serum potassium was 3.6, sodium 139. ASSESSMENT: 1. Acute kidney injury, prerenal, currently significantly improved. 2. COVID-19 infection, maintained on hydroxychloroquine. No significant symptoms. 3. Volume depletion, now resolved. 4. Coronary artery disease with history of coronary artery stenting. PLAN: Patient is advised to maintain adequate hydration and avoid use of NSAIDs post discharge. Follow-up labs in 1-2 weeks post discharge. MMODL / IJN: [id number] /
[2019-06-30] MEDS ORDERED: INSULIN DETEMIR (LEVEMIR) 100 UNIT/ML SYR SQ SCH (21:00)
--- NOTE | 2019-07-01 08:42 | ECHOF ---
Referral Reason:LVF MEASUREMENTS -------- HEIGHT: 172.7 cm WEIGHT: 52.6 kg BP: 95/55 RVIDd: 2.6 cm (< 3.3) IVSd: 1.4 cm (0.6 - 1.1) LVIDd: 3.7 cm (3.9 - 5.3) LVPWd: 1.5 cm (0.6 - 1.1) IVSs: 1.8 cm LVIDs: 2.6 cm LVPWs: 1.7 cm LA Diam: 2.6 cm (2.7 - 3.8) LAESV Index (A-L): 27.55 ml/m Ao Diam: 3.4 cm (2.0 - 3.7) AV Cusp: 1.8 cm (1.5 - 2.6) MV EXCURSION: 15.228 mm (> 18.000) MV EF SLOPE: 88 mm/s (70 - 150) EPSS: 0.6 cm MV E Juancarlos: 1.13 m/s MV DecT: 197 ms MV A Juancarlos: 1.02 m/s MV E/A Ratio: 1.11 RAP: 5.00 mmHg RVSP: 32.43 mmHg FINDINGS -------- Sinus rhythm. This was a technically good study. The left ventricular size is normal. There is moderate concentric left ventricular hypertrophy. O verall left ventricular systolic function is normal with, an EF between 55 - 60 %. The right ventricle is normal in size. Normal LA size by volume 22+/-6 ml/m2. The right atrium is normal in size. Interatrial and interventricular septum intact. The aortic valve is trileaflet and appears structurally normal. The mitral valve leaflets are mildly thickened. There is trace to mild mitral regurgitation. Mild tricuspid regurgitation present. Right ventricular systolic pressure is normal at < 35 mmHg. There is no pulmonic regurgitation present. The aortic root size is normal. Normal inferior vena cava with normal inspiratory collapse consistent with estimated right atrial pre ssure of 5 mmHg. There is no pericardial effusion. CONCLUSIONS -------- 1. Sinus rhythm. 2. This was a technically good study. 3. The left ventricular size is normal. 4. There is moderate concentric left ventricular hypertrophy. 5. Overall left ventricular systolic function is normal with, an EF between 55 - 60 %. 6. The right ventricle is normal in size. 7. Normal LA size by volume 22+/-6 ml/m2. 8. The right atrium is normal in size. 9. Interatrial and interventricular septum intact. 10. The aortic valve is trileaflet and appears structurally normal. 11. The mitral valve leaflets are mildly thickened. 12. There is trace to mild mitral regurgitation. 13. Mild tricuspid regurgitation present. 14. Right ventricular systolic pressure is normal at < 35 mmHg. 15. There is no pulmonic regurgitation present. 16. The aortic root size is normal. 17. Normal inferior vena cava with normal inspiratory collapse consistent with estimated right atrial pressure of 5 mmHg. 18. There is no pericardial effusion. GANTRY CRANE OPERATOR: Samantha Miller RDCS
--- NOTE | 2019-07-08 06:01 | CDI ---
Documentation Clarification Form Date: 07/02/2019 07:06:00 AM From: Haydee Burns Phone: If you have a question about this query, please contact Larisa Noonan, Captain Waiter/Waitress at [phone] between 8am and 5pm. Admit Date: 06/26/2019 05:50:00 PM Patient Name: Michelle Curry Visit Number: [id number] Discharge Date: 06/30/2019 12:45:00 PM ATTENTION: The Clinical Documentation Specialists (CDI) and [facility] Coding Staff appreciate your assistance in clarifying documentation. Please respond to the clarification below the line at the bottom and electronically sign. The CDI & [facility] Coding staff will review the response and follow-up if needed. Please note: Queries are made part of the Legal Health Record. If you have any questions, please contact the author of this message via ITS. Dr. Mary Heath onflicting documentation has been found in the medical record: Type I uncontrolled DM is in Hospital course of [facility] and in ID consult. Type II uncontrolled hyperglycemia is documented in [facility] under diagnosis, pulmonary consult, renal consult. Please clarify did patient have Type I DM with hyperpglycemia or Type II DM with hyperglycemia. History/Risk Factors: H1C 14 patient not complying with insulin Clinical Indicators: Patient diabetic PVD, peripheral neuropathy Treatment:Insulin In your opinion, what is the most clinically appropriate diagnosis for this patient? Type I diabetes with hyperglycemia Type II diabetes with hyperglycemia Other explanation of clinical findings Unable to determine (no explanation for clinical findings) Type 1 Diabetes Mellitus with Hyperglycemia ___ MTDD
== END 2019-06-30 12:45 | disposition home or self-care (01) | DRG 177 ==
LOC: EC 14:23 → 3SCARD 17:50
PROVIDERS: ADMIT Internal Medicine; ATTEND Internal Medicine
DX: U07.1 COVID-19 (principal); J12.89 Other viral pneumonia; N17.0 Acute kidney failure with tubular necrosis; N39.0 Urinary tract infection, site not specified; J30.9 Allergic rhinitis, unspecified; I48.0 Paroxysmal atrial fibrillation; I25.10 Atherosclerotic heart disease of native coronary artery without angina pectoris; F41.0 Panic disorder [episodic paroxysmal anxiety]; I11.9 Hypertensive heart disease without heart failure; E86.1 Hypovolemia; D72.810 Lymphocytopenia; B96.20 Unspecified Escherichia coli [E. coli] as the cause of diseases classified elsewhere; E78.5 Hyperlipidemia, unspecified; R79.89 Other specified abnormal findings of blood chemistry; Z91.81 History of falling; R63.4 Abnormal weight loss; Z68.20 Body mass index [BMI] 20.0-20.9, adult; Z63.4 Disappearance and death of family member; Z79.01 Long term (current) use of anticoagulants; M19.90 Unspecified osteoarthritis, unspecified site; E10.42 Type 1 diabetes mellitus with diabetic polyneuropathy; E10.65 Type 1 diabetes mellitus with hyperglycemia; R94.31 Abnormal electrocardiogram [ECG] [EKG]; M54.30 Sciatica, unspecified side; Z79.4 Long term (current) use of insulin; Z88.5 Allergy status to narcotic agent; Z88.2 Allergy status to sulfonamides; Z79.82 Long term (current) use of aspirin; Z79.899 Other long term (current) drug therapy; Z82.0 Family history of epilepsy and other diseases of the nervous system; Z82.49 Family history of ischemic heart disease and other diseases of the circulatory system; Z86.718 Personal history of other venous thrombosis and embolism; Z84.1 Family history of disorders of kidney and ureter; I95.9 Hypotension, unspecified; T44.7X5A Adverse effect of beta-adrenoreceptor antagonists, initial encounter; Z90.49 Acquired absence of other specified parts of digestive tract; K59.00 Constipation, unspecified; Z98.51 Tubal ligation status; Z87.891 Personal history of nicotine dependence; G47.419 Narcolepsy without cataplexy; G47.10 Hypersomnia, unspecified; Z90.710 Acquired absence of both cervix and uterus; Z95.5 Presence of coronary angioplasty implant and graft; T38.3X6A Underdosing of insulin and oral hypoglycemic [antidiabetic] drugs, initial encounter; Z91.128 Patient's intentional underdosing of medication regimen for other reason
CPT/HCPCS: 36415; 71045; 71046; 80048; 80053; 80061; 81001; 82728; 83615; 83735; 84145; 84484; 85025; 85379; 85610; 85730; 86140; 87077; 87086; 87186; 87635; 93005; 93306; 96360; 96361; 99285

== ENCOUNTER 2020-01-04 14:54 | Emergency (ER) | payer MEDICARE, OTHER ==
--- NOTE | 2020-01-04 15:03 | ED ---
General Adult HPI - General Stated complaint: Chest Pain Time Seen by Provider: 01/04/20 14:54 Source: patient, RN notes reviewed, old records reviewed - History of Present Illness Initial comments: This is a 69-year-old female who is a diabetic and states she's had a cardiac stent in the past. Ambulance was called because the patient was having a diabetic episode when EMS arrived patient's blood sugar was 36 they gave her amp of D50 and patient's blood sugar was over 300. After that the patient did not come around normally according to the paramedics we did an EKG that showed ST segment elevation with elevation in 1 and aVL. Paramedics repeated that and found the same results so he called a STEMI brought the patient in. Patient never had any chest pain difficulty breathing or shortness of breath. Patient denies any fever chills or cough per patient denies any nausea vomiting patient denies lightheadedness or dizziness. She states she feels good enough to go home at this time. - Related Data Home Medications Medication Instructions Recorded Confirmed Montelukast Sodium [Singulair] 10 mg PO HS 01/30/19 01/04/20 Rosuvastatin [Crestor] 10 mg PO HS 01/30/19 01/04/20 Insulin Aspart [NovoLOG Flexpen] See Protocol SQ AC-TID 06/26/19 01/04/20 Insulin Glargine,Hum.rec.anlog 18 unit SQ HS 06/26/19 01/04/20 [Lantus Solostar] Carvedilol [Coreg] 6.25 mg PO BID 01/04/20 01/04/20 Cholecalciferol [Vitamin D3 (25 1,000 unit PO DAILY 01/04/20 01/04/20 Mcg = 1000 Iu)] Dm/Acetaminophen/Doxylamine [Vicks 30 ml PO Q4H PRN 01/04/20 01/04/20 Nyquil Cold-Flu Liquid] Losartan Potassium [Cozaar] 50 mg PO BID 01/04/20 01/04/20 Previous Rx's Medication Instructions Recorded Aspirin 81 mg PO DAILY chew 06/30/19 guaiFENesin [Mucinex] 600 mg PO Q12HR tablet.er 06/30/19 Allergies Allergy/AdvReac Type Severity Reaction Status Date / Time morphine AdvReac PASSES OUT Verified 11/23/20 16:44 nitroglycerin AdvReac PASSES OUT Verified 01/04/20 16:44 Sulfa (Sulfonamide AdvReac Itching Verified 01/04/20 16:44 Antibiotics) Review of Systems ROS Statement: Those systems with pertinent positive or pertinent negative responses have been documented in the HPI. ROS Other: All systems not noted in ROS Statement are negative. Past Medical History Past Medical History: Coronary Artery Disease (CAD), Diabetes Mellitus, Deep Vein Thrombosis (DVT), GERD/Reflux, Hyperlipidemia, Hypertension, Osteoarthritis (OA), Vascular Disorder Additional Past Medical History / Comment(s): IDDM type I with diabetic neuropathy, narcolepsy, DVTs L lower extremity, vertigo occasionally, low back pian with bilateral sciatica, PAD, pneumothorax when pt was in her 20s with chest tube, constipation, bronchitis. History of Any Multi-Drug Resistant Organisms: None Reported Past Surgical History: Appendectomy, Cholecystectomy, Heart Catheterization With Stent, Hysterectomy, Tubal Ligation Additional Past Surgical History / Comment(s): PCI/stent, ectopic pregnancies with eventual total hysterectomy, EGD, colonoscopy, L breast biopsy-benign, bilateral carpal tunnel release, bilateral eyes laser surgery/lens. Past Anesthesia/Blood Transfusion Reactions: Previous Problems w/ Anesthesia, Postoperative Nausea & Vomiting (PONV) Additional Past Anesthesia/Blood Transfusion Reaction / Comment(s): PT STATES HER AND HER FAMILY HAVE DIFFICULTY WAKING UP Date of Last Stent Placement:: Past Psychological History: No Psychological Hx Reported Past Alcohol Use History: None Reported Past Drug Use History: None Reported - Past Family History Mother Family Medical History: Hypertension, Seizure Disorder Additional Family Medical History / Comment(s): Mother at age 75 Father Family Medical History: Renal Disease Additional Family Medical History / Comment(s): Father at age 58 from acute renal failure and he was an alcoholic. Son(s) Family Medical History: No Reported History Additional Family Medical History / Comment(s): Patient has 2 sons with no major medical problems. General Exam - General Exam Comments Initial Comments: GENERAL: Patient is well-developed and well-nourished. Patient is nontoxic and well- hydrated and is in no acute distress. ENT: Neck is soft and supple. No significant lymphadenopathy is noted. Oropharynx is clear. Moist mucous membranes. Neck has full range of motion without eliciting any pain. EYES: The sclera were anicteric and conjunctiva were pink and moist. Extraocular movements were intact and pupils were equal round and reactive to light. Eyelids were unremarkable. PULMONARY: Unlabored respirations. Good breath sounds bilaterally. No audible rales rhonchi or wheezing was noted. CARDIOVASCULAR: There is a regular rate and rhythm without any murmurs gallops or rubs. ABDOMEN: Soft and nontender with normal bowel sounds. SKIN: Skin is clear with no lesions or rashes and otherwise unremarkable. NEUROLOGIC: Patient is alert and oriented x3. Cranial nerves II through XII are grossly intact. Motor and sensory are also intact. Normal speech, volume and content. Symmetrical smile. MUSCULOSKELETAL: Normal extremities with adequate strength and full range of motion. No lower extremity swelling or edema. No calf tenderness. LYMPHATICS: No significant lymphadenopathy is noted PSYCHIATRIC: Normal psychiatric evaluation. Course Vital Signs 01/04/20 01/04/20 01/04/20 14:55 15:17 15:18 Pulse Rate 88 Respiratory 18 Rate Blood Pressure 231/127 237/125 168/94 O2 Sat by Pulse 99 Oximetry 01/04/20 16:51 Pulse Rate Respiratory Rate Blood Pressure 186/95 O2 Sat by Pulse Oximetry Medical Decision Making - Medical Decision Making EKG shows normal sinus rhythm at 60 bpm AK interval is on a 52 QRS is under 4 QT interval 4:30 QTC is 457. Patient's EKG shows no ST segment elevation there is some T-wave inversions in 3 and aVF but this was seen on old EKG. Patient arrived without symptoms and she stated that way throughout her ED stay. Patient did receive 20 mg of labetalol initially to get her blood pressure down and then received 10 more later on because it started elevated again. Patient admitted that she did not take any blood pressure medications today. Patient never expressed any chest pain however the EKG that the grey roll man did did look like there was some ST segment elevation however she denied ever having chest pain and states that she is feeling back to her baseline currently. Patient refuses to stay even though I recommended granddaughter was in the room and understood the risks and stated she would watch her carefully and take her home. - Lab Data Result diagrams: 01/04/20 15:22 01/04/20 15:22 Lab Results 01/04/20 01/04/20 01/04/20 Range/Units 14:56 15:22 15:22 WBC 3.6 L (3.8-10.6) k/uL RBC 4.66 (3.80-5.40) m/uL Hgb 13.2 (11.4-16.0) gm/dL Hct 40.5 (34.0-46.0) % MCV 87.0 (80.0-100.0) fL MCH 28.4 (25.0-35.0) pg MCHC 32.6 (31.0-37.0) g/dL RDW 14.1 (11.5-15.5) % Plt Count 239 (150-450) k/uL MPV 8.3 Neutrophils % 47 % Lymphocytes % 42 % Monocytes % 5 % Eosinophils % 2 % Basophils % 1 % Neutrophils # 1.7 (1.3-7.7) k/uL Lymphocytes # 1.5 (1.0-4.8) k/uL Monocytes # 0.2 (0-1.0) k/uL Eosinophils # 0.1 (0-0.7) k/uL Basophils # 0.0 (0-0.2) k/uL PT 9.8 (9.0-12.0) sec INR 0.9 (<1.2) APTT 22.6 (22.0-30.0) sec Sodium (137-145) mmol/L Potassium (3.5-5.1) mmol/L Chloride (98-107) mmol/L Carbon Dioxide (22-30) mmol/L Anion Gap mmol/L BUN (7-17) mg/dL Creatinine (0.52-1.04) mg/dL Est GFR (CKD-EPI)AfAm (>60 ml/min/1.73 sqM) Est GFR (CKD-EPI)NonAf (>60 ml/min/1.73 sqM) Glucose (74-99) mg/dL POC Glucose (mg/dL) 130 H (75-99) mg/dL POC Glu Utility Maintenance Worker ID Stefanie Freeman Calcium (8.4-10.2) mg/dL Magnesium (1.6-2.3) mg/dL Total Bilirubin (0.2-1.3) mg/dL AST (14-36) U/L ALT (4-34) U/L Alkaline Phosphatase (38-126) U/L Troponin I (0.000-0.034) ng/mL Total Protein (6.3-8.2) g/dL Albumin (3.5-5.0) g/dL Urine Color Urine Appearance (Clear) Urine pH (5.0-8.0) Ur Specific [place] (1.001-1.035) Urine Protein (Negative) Urine Glucose (UA) (Negative) Urine Ketones (Negative) Urine Blood (Negative) Urine Nitrite (Negative) Urine Bilirubin (Negative) Urine Urobilinogen (<2.0) mg/dL Ur Leukocyte Esterase (Negative) Urine RBC (0-5) /hpf Urine WBC (0-5) /hpf Ur Squamous Epith Cells (0-4) /hpf Urine Bacteria (None) /hpf Hyaline Casts (0-2) /lpf Urine Mucus (None) /hpf 01/04/20 01/04/20 01/04/20 Range/Units 15:22 15:22 15:40 WBC (3.8-10.6) k/uL RBC (3.80-5.40) m/uL Hgb (11.4-16.0) gm/dL Hct (34.0-46.0) % MCV (80.0-100.0) fL MCH (25.0-35.0) pg MCHC (31.0-37.0) g/dL RDW (11.5-15.5) % Plt Count (150-450) k/uL MPV Neutrophils % % Lymphocytes % % Monocytes % % Eosinophils % % Basophils % % Neutrophils # (1.3-7.7) k/uL Lymphocytes # (1.0-4.8) k/uL Monocytes # (0-1.0) k/uL Eosinophils # (0-0.7) k/uL Basophils # (0-0.2) k/uL PT (9.0-12.0) sec INR (<1.2) APTT (22.0-30.0) sec Sodium 142 (137-145) mmol/L Potassium 3.8 (3.5-5.1) mmol/L Chloride 104 (98-107) mmol/L Carbon Dioxide 35 H (22-30) mmol/L Anion Gap 3 mmol/L BUN 21 H (7-17) mg/dL Creatinine 0.83 (0.52-1.04) mg/dL Est GFR (CKD-EPI)AfAm 83 (>60 ml/min/1.73 sqM) Est GFR (CKD-EPI)NonAf 72 (>60 ml/min/1.73 sqM) Glucose 107 H (74-99) mg/dL POC Glucose (mg/dL) (75-99) mg/dL POC Glu Utility Maintenance Worker ID Calcium 9.7 (8.4-10.2) mg/dL Magnesium 2.0 (1.6-2.3) mg/dL Total Bilirubin 0.6 (0.2-1.3) mg/dL AST 33 (14-36) U/L ALT 20 (4-34) U/L Alkaline Phosphatase 75 (38-126) U/L Troponin I <0.012 (0.000-0.034) ng/mL Total Protein 7.1 (6.3-8.2) g/dL Albumin 3.7 (3.5-5.0) g/dL Urine Color Light Yellow Urine Appearance Cloudy H (Clear) Urine pH 6.5 (5.0-8.0) Ur Specific [place] 1.008 (1.001-1.035) Urine Protein 1+ H (Negative) Urine Glucose (UA) 4+ H (Negative) Urine Ketones Negative (Negative) Urine Blood Negative (Negative) Urine Nitrite Negative (Negative) Urine Bilirubin Negative (Negative) Urine Urobilinogen <2.0 (<2.0) mg/dL Ur Leukocyte Esterase Negative (Negative) Urine RBC 2 (0-5) /hpf Urine WBC 2 (0-5) /hpf Ur Squamous Epith Cells <1 (0-4) /hpf Urine Bacteria Few H (None) /hpf Hyaline Casts 1 (0-2) /lpf Urine Mucus Rare H (None) /hpf Disposition Clinical Impression: Hypertensive urgency, Abnormal EKG, Hypoglycemia Disposition: Left Against Medical Advice Instructions (If sedation given, give patient instructions): Hypoglycemia in a Person with Diabetes (ED), Hypertension (ED) Is patient prescribed a controlled substance at d/c from ED?: No Referrals: Mary Heath MD [Primary Care Provider] - 1-2 days Time of Disposition: 16:57
[2020-01-04 15:05] LABS: Glucose,Whole Blood 130 mg/dL (75-99)
[2020-01-04 15:07] VITALS: RESP 18
[2020-01-04] MEDS ORDERED: LABETALOL 5 MG/ML VIAL MDV IVP STA ×2 (15:11→16:52)
[2020-01-04 15:45] LABS: Basophils % (A) 1 %; Eosinophils # (A) 0.1 k/uL (0-0.7); Eosinophils % (A) 2 %; HCT 40.5 % (34.0-46.0); HGB 13.2 gm/dL (11.4-16.0); Lymphocytes # (A) 1.5 k/uL (1.0-4.8); Lymphocytes % (A) 42 %; MCH 28.4 pg (25.0-35.0); MCHC 32.6 g/dL (31.0-37.0); Mean Platelet Volume 8.3; Monocytes # (A) 0.2 k/uL (0-1.0); Monocytes % (A) 5 %; Neutrophils # (A) 1.7 k/uL (1.3-7.7); Neutrophils % (A) 47 %; Platelet Count 239 k/uL (150-450); RBC 4.66 m/uL (3.80-5.40); RDW 14.1 % (11.5-15.5); WBC 3.6 k/uL (3.8-10.6)
[2020-01-04 15:54] LABS: Albumin 3.7 g/dL (3.5-5.0); Calcium 9.7 mg/dL (8.4-10.2); Potassium 3.8 mmol/L (3.5-5.1); Total Bilirubin 0.6 mg/dL (0.2-1.3); Total Protein 7.1 g/dL (6.3-8.2)
[2020-01-04 16:00] LABS: INR 0.9 (<1.2); Partial Thromboplastin Time 22.6 sec (22.0-30.0); Prothrombin Time 9.8 sec (9.0-12.0)
--- NOTE | 2020-01-04 16:03 | XR ---
EXAMINATION TYPE: XR chest 2V DATE OF EXAM: 01/04/2020 COMPARISON: 06/28/2019 HISTORY: 69-year-old female with chest pain TECHNIQUE: PA and lateral views FINDINGS: Heart normal size. Atherosclerotic arch calcifications. Mild ectasia/elongation of the thoracic aorta . No consolidation or pleural effusion. IMPRESSION: No acute cardiopulmonary process.
[2020-01-04 16:13] LABS: Appearance,Urine Cloudy (Clear); Bacteria,Urine Few /hpf; Bilirubin,Urine Negative (Negative); Blood,Urine Negative (Negative); Color,Urine Light Yellow; Glucose,Urine (UA) 4+ (Negative); Hyaline Casts,Urine 1 /lpf (0-2); Ketones,Urine Negative (Negative); Leukocyte Esterase,Urine Negative (Negative); Mucus,Urine Rare /hpf; Nitrite,Urine Negative (Negative); PH, Urine 6.5 (5.0-8.0); Protein,Urine 1+ (Negative); RBC,Urine 2 /hpf (0-5); Specific Gravity,Urine 1.008 (1.001-1.035); Squamous Epithelial Cell,Urine <1 /hpf (0-4); Urobilinogen,Urine <2.0 mg/dL (<2.0); WBC,Urine 2 /hpf (0-5)
[2020-01-04 17:02] VITALS: BP 162/97; PULSE 61
== END 2020-01-04 17:15 | disposition left against medical advice (07) ==
LOC: EC 14:54
DX: I16.0 Hypertensive urgency (principal); R94.31 Abnormal electrocardiogram [ECG] [EKG]; E10.649 Type 1 diabetes mellitus with hypoglycemia without coma; I10 Essential (primary) hypertension; E78.5 Hyperlipidemia, unspecified; Z79.899 Other long term (current) drug therapy; Z79.4 Long term (current) use of insulin; Z88.2 Allergy status to sulfonamides; Z88.5 Allergy status to narcotic agent; Z88.8 Allergy status to other drugs, medicaments and biological substances; Z86.718 Personal history of other venous thrombosis and embolism; Z95.5 Presence of coronary angioplasty implant and graft; Z53.29 Procedure and treatment not carried out because of patient's decision for other reasons
CPT/HCPCS: 36415; 71046; 80053; 81001; 83735; 84484; 85025; 85610; 85730; 93005; 96374; 96376; 99285

== ENCOUNTER 2020-04-15 11:55 | Inpatient (IN) | payer MEDICARE, OTHER ==
[2020-04-15] MEDS ORDERED: ONDANSETRON 4 MG/2 ML VIAL IVP STA (12:37)
--- NOTE | 2020-04-15 12:37 | ED ---
Weakness HPI - General Chief complaint: Weakness Stated complaint: Weakness, Nausea & vomiting Time Seen by Provider: 04/15/20 12:00 Source: patient, EMS, RN notes reviewed Mode of arrival: EMS Limitations: no limitations - History of Present Illness Initial comments: Is a 70-year-old female history of multiple medical problems including hypertension diabetes who resents with complaints of generalized weakness nausea vomiting especially with any attempts to try to eat or drink. She just feels generally weak. She denies any overt fevers chills or sweats he still feeling nauseated though she has not thrown up since she was at home. She did present by EMS. No other complaints or modifying factors at this time MD Complaint: generalized weakness - Related Data Home Medications Medication Instructions Recorded Confirmed Montelukast Sodium [Singulair] 10 mg PO HS 01/30/19 01/04/20 Rosuvastatin [Crestor] 10 mg PO HS 01/30/19 01/04/20 Insulin Aspart [NovoLOG Flexpen] See Protocol SQ AC-TID 06/26/19 01/04/20 Insulin Glargine,Hum.rec.anlog 18 unit SQ HS 06/26/19 01/04/20 [Lantus Solostar] Carvedilol [Coreg] 6.25 mg PO BID 01/04/20 01/04/20 Cholecalciferol [Vitamin D3 (25 1,000 unit PO DAILY 01/04/20 01/04/20 Mcg = 1000 Iu)] Dm/Acetaminophen/Doxylamine [Vicks 30 ml PO Q4H PRN 01/04/20 01/04/20 Nyquil Cold-Flu Liquid] Losartan Potassium [Cozaar] 50 mg PO BID 01/04/20 01/04/20 Previous Rx's Medication Instructions Recorded Aspirin 81 mg PO DAILY chew 06/30/19 guaiFENesin [Mucinex] 600 mg PO Q12HR tablet.er 06/30/19 Allergies Allergy/AdvReac Type Severity Reaction Status Date / Time morphine AdvReac PASSES OUT Verified 01/04/20 16:44 nitroglycerin AdvReac PASSES OUT Verified 01/04/20 16:44 Sulfa (Sulfonamide AdvReac Itching Verified 01/04/20 16:44 Antibiotics) Review of Systems ROS Statement: Those systems with pertinent positive or pertinent negative responses have been documented in the HPI. ROS Other: All systems not noted in ROS Statement are negative. Past Medical History Past Medical History: Coronary Artery Disease (CAD), Diabetes Mellitus, Deep Vein Thrombosis (DVT), GERD/Reflux, Hyperlipidemia, Hypertension, Osteoarthritis (OA), Vascular Disorder Additional Past Medical History / Comment(s): IDDM type I with diabetic neuropathy, narcolepsy, DVTs L lower extremity, vertigo occasionally, low back pian with bilateral sciatica, PAD, pneumothorax when pt was in her 20s with chest tube, constipation, bronchitis. History of Any Multi-Drug Resistant Organisms: None Reported Past Surgical History: Appendectomy, Cholecystectomy, Heart Catheterization With Stent, Hysterectomy, Tubal Ligation Additional Past Surgical History / Comment(s): PCI/stent, ectopic pregnancies with eventual total hysterectomy, EGD, colonoscopy, L breast biopsy-benign, bilateral carpal tunnel release, bilateral eyes laser surgery/lens. Past Anesthesia/Blood Transfusion Reactions: Previous Problems w/ Anesthesia, Postoperative Nausea & Vomiting (PONV) Additional Past Anesthesia/Blood Transfusion Reaction / Comment(s): PT STATES HER AND HER FAMILY HAVE DIFFICULTY WAKING UP Date of Last Stent Placement:: Past Psychological History: No Psychological Hx Reported Smoking Status: Former smoker Past Alcohol Use History: None Reported Past Drug Use History: None Reported - Past Family History Mother Family Medical History: Hypertension, Seizure Disorder Additional Family Medical History / Comment(s): Mother at age 75 Father Family Medical History: Renal Disease Additional Family Medical History / Comment(s): Father at age 58 from acute renal failure and he was an alcoholic. Son(s) Family Medical History: No Reported History Additional Family Medical History / Comment(s): Patient has 2 sons with no major medical problems. General Exam - General Exam Comments Initial Comments: This is a well-developed well-nourished awake alert oriented x 3 female Limitations: no limitations General appearance: alert, lethargic Head exam: Present: atraumatic, normocephalic, normal inspection Eye exam: Present: normal appearance, PERRL, EOMI. Absent: scleral icterus, conjunctival injection, periorbital swelling ENT exam: Present: mucous membranes dry Neck exam: Present: normal inspection. Absent: tenderness, meningismus, lymphadenopathy Respiratory exam: Present: normal lung sounds bilaterally. Absent: respiratory distress, wheezes, rales, rhonchi, stridor Cardiovascular Exam: Present: regular rate, normal rhythm, normal heart sounds. Absent: systolic murmur, diastolic murmur, rubs, gallop, clicks GI/Abdominal exam: Present: soft, normal bowel sounds. Absent: distended, tenderness, guarding, rebound, rigid Extremities exam: Present: normal inspection, full ROM, normal capillary refill. Absent: tenderness, pedal edema, joint swelling, calf tenderness Back exam: Present: normal inspection Neurological exam: Present: alert, oriented X3, CN II-XII intact Psychiatric exam: Present: normal affect, normal mood Skin exam: Present: warm, dry, intact, normal color. Absent: rash Course Vital Signs 04/15/20 11:58 Temperature 97.7 F Pulse Rate 76 Respiratory 18 Rate Blood Pressure 139/70 O2 Sat by Pulse 99 Oximetry - Reevaluation(s) Reevaluation #1: 04/15/20 14:43 Patient has been resting comfortably EKG Findings - EKG Results: EKG: interpreted by ALEN, sinus rhythm (Sinus rhythm a 79 CO interval 144 QRS duration 156 QTC 380/444 nonspecific septal changes this does compared to an EKG dated 01/04/20) Medical Decision Making - Medical Decision Making I did discuss Pf[employer] the patient as well as with Dr. Bob riddle. Patient does demonstrate evidence of DKA as well as NSTEMI patient has not had any chest pain patient will be admitted ICU the case is discussed with Dr. Causey with consultation to cardiology. - Lab Data Result diagrams: 04/15/20 12:53 04/15/20 12:53 Lab Results 04/15/20 04/15/20 04/15/20 Range/Units 12:53 12:53 12:53 WBC 5.9 (3.8-10.6) k/uL RBC 3.83 (3.80-5.40) m/uL Hgb 11.2 L (11.4-16.0) gm/dL Hct 36.6 (34.0-46.0) % MCV 95.5 (80.0-100.0) fL MCH 29.3 (25.0-35.0) pg MCHC 30.7 L (31.0-37.0) g/dL RDW 14.0 (11.5-15.5) % Plt Count 239 (150-450) k/uL MPV 9.6 Neutrophils % 83 % Lymphocytes % 10 % Monocytes % 5 % Eosinophils % 1 % Basophils % 0 % Neutrophils # 4.9 (1.3-7.7) k/uL Lymphocytes # 0.6 L (1.0-4.8) k/uL Monocytes # 0.3 (0-1.0) k/uL Eosinophils # 0.1 (0-0.7) k/uL Basophils # 0.0 (0-0.2) k/uL Hypochromasia Marked PT 9.9 (9.0-12.0) sec INR 0.9 (<1.2) APTT 18.7 L (22.0-30.0) sec Sodium 132 L (137-145) mmol/L Potassium 4.2 (3.5-5.1) mmol/L Chloride 95 L (98-107) mmol/L Carbon Dioxide 14 L (22-30) mmol/L Anion Gap 23 mmol/L BUN 33 H (7-17) mg/dL Creatinine 1.11 H (0.52-1.04) mg/dL Est GFR (CKD-EPI)AfAm 58 (>60 ml/min/1.73 sqM) Est GFR (CKD-EPI)NonAf 50 (>60 ml/min/1.73 sqM) Glucose 758 H* (74-99) mg/dL Plasma Lactic Acid [place] (0.7-2.0) mmol/L Calcium 8.7 (8.4-10.2) mg/dL Magnesium 2.2 (1.6-2.3) mg/dL Total Bilirubin 0.6 (0.2-1.3) mg/dL AST 32 (14-36) U/L ALT 26 (4-34) U/L Alkaline Phosphatase 97 (38-126) U/L Creatine Kinase 177 H (30-135) U/L Troponin I (0.000-0.034) ng/mL NT-Pro-B Natriuret Pep pg/mL Total Protein 5.7 L (6.3-8.2) g/dL Albumin 3.3 L (3.5-5.0) g/dL Urine Color Urine Appearance (Clear) Urine pH (5.0-8.0) Ur Specific [place] (1.001-1.035) Urine Protein (Negative) Urine Glucose (UA) (Negative) Urine Ketones (Negative) Urine Blood (Negative) Urine Nitrite (Negative) Urine Bilirubin (Negative) Urine Urobilinogen (<2.0) mg/dL Ur Leukocyte Esterase (Negative) 04/15/20 04/15/20 04/15/20 Range/Units 12:53 12:53 12:53 WBC (3.8-10.6) k/uL RBC (3.80-5.40) m/uL Hgb (11.4-16.0) gm/dL Hct (34.0-46.0) % MCV (80.0-100.0) fL MCH (25.0-35.0) pg MCHC (31.0-37.0) g/dL RDW (11.5-15.5) % Plt Count (150-450) k/uL MPV Neutrophils % % Lymphocytes % % Monocytes % % Eosinophils % % Basophils % % Neutrophils # (1.3-7.7) k/uL Lymphocytes # (1.0-4.8) k/uL Monocytes # (0-1.0) k/uL Eosinophils # (0-0.7) k/uL Basophils # (0-0.2) k/uL Hypochromasia PT (9.0-12.0) sec INR (<1.2) APTT (22.0-30.0) sec Sodium (137-145) mmol/L Potassium (3.5-5.1) mmol/L Chloride (98-107) mmol/L Carbon Dioxide (22-30) mmol/L Anion Gap mmol/L BUN (7-17) mg/dL Creatinine (0.52-1.04) mg/dL Est GFR (CKD-EPI)AfAm (>60 ml/min/1.73 sqM) Est GFR (CKD-EPI)NonAf (>60 ml/min/1.73 sqM) Glucose (74-99) mg/dL Plasma Lactic Acid [place] 2.6 H* (0.7-2.0) mmol/L Calcium (8.4-10.2) mg/dL Magnesium (1.6-2.3) mg/dL Total Bilirubin (0.2-1.3) mg/dL AST (14-36) U/L ALT (4-34) U/L Alkaline Phosphatase (38-126) U/L Creatine Kinase (30-135) U/L Troponin I 0.128 H* (0.000-0.034) ng/mL NT-Pro-B Natriuret Pep 1660 pg/mL Total Protein (6.3-8.2) g/dL Albumin (3.5-5.0) g/dL Urine Color Urine Appearance (Clear) Urine pH (5.0-8.0) Ur Specific [place] (1.001-1.035) Urine Protein (Negative) Urine Glucose (UA) (Negative) Urine Ketones (Negative) Urine Blood (Negative) Urine Nitrite (Negative) Urine Bilirubin (Negative) Urine Urobilinogen (<2.0) mg/dL Ur Leukocyte Esterase (Negative) 04/15/20 Range/Units 13:00 WBC (3.8-10.6) k/uL RBC (3.80-5.40) m/uL Hgb (11.4-16.0) gm/dL Hct (34.0-46.0) % MCV (80.0-100.0) fL MCH (25.0-35.0) pg MCHC (31.0-37.0) g/dL RDW (11.5-15.5) % Plt Count (150-450) k/uL MPV Neutrophils % % Lymphocytes % % Monocytes % % Eosinophils % % Basophils % % Neutrophils # (1.3-7.7) k/uL Lymphocytes # (1.0-4.8) k/uL Monocytes # (0-1.0) k/uL Eosinophils # (0-0.7) k/uL Basophils # (0-0.2) k/uL Hypochromasia PT (9.0-12.0) sec INR (<1.2) APTT (22.0-30.0) sec Sodium (137-145) mmol/L Potassium (3.5-5.1) mmol/L Chloride (98-107) mmol/L Carbon Dioxide (22-30) mmol/L Anion Gap mmol/L BUN (7-17) mg/dL Creatinine (0.52-1.04) mg/dL Est GFR (CKD-EPI)AfAm (>60 ml/min/1.73 sqM) Est GFR (CKD-EPI)NonAf (>60 ml/min/1.73 sqM) Glucose (74-99) mg/dL Plasma Lactic Acid [place] (0.7-2.0) mmol/L Calcium (8.4-10.2) mg/dL Magnesium (1.6-2.3) mg/dL Total Bilirubin (0.2-1.3) mg/dL AST (14-36) U/L ALT (4-34) U/L Alkaline Phosphatase (38-126) U/L Creatine Kinase (30-135) U/L Troponin I (0.000-0.034) ng/mL NT-Pro-B Natriuret Pep pg/mL Total Protein (6.3-8.2) g/dL Albumin (3.5-5.0) g/dL Urine Color Colorless Urine Appearance Clear (Clear) Urine pH 5.0 (5.0-8.0) Ur Specific [place] 1.026 (1.001-1.035) Urine Protein Negative (Negative) Urine Glucose (UA) 4+ H (Negative) Urine Ketones 2+ H (Negative) Urine Blood Negative (Negative) Urine Nitrite Negative (Negative) Urine Bilirubin Negative (Negative) Urine Urobilinogen <2.0 (<2.0) mg/dL Ur Leukocyte Esterase Negative (Negative) - Radiology Data Radiology results: report reviewed (Imaging reviewed no acute findings.), image reviewed Critical Care Time Critical Care Time: Yes Total Critical Care Time: 39 Critical Care Time: Critical care time includes initial presentation with history physical labs x- rays discussed with paramedics on arrival multiple reevaluation patient reveals multiple charting discussed with the patient regarding findings discussed with the admitting physician and Dr. Causey. Admission orders documentation the above Disposition Clinical Impression: Non-STEMI (non-ST elevated myocardial infarction), DKA (diabetic ketoacidoses) Disposition: ADMITTED IP TO THIS [facility] Condition: Serious Referrals: Mary Heath MD [Primary Care Provider] - 1-2 days
[2020-04-15 13:31] LABS: Appearance,Urine Clear (Clear); Bilirubin,Urine Negative (Negative); Blood,Urine Negative (Negative); Color,Urine Colorless; Glucose,Urine (UA) 4+ (Negative); Leukocyte Esterase,Urine Negative (Negative); Nitrite,Urine Negative (Negative); Protein,Urine Negative (Negative); Specific Gravity,Urine 1.026 (1.001-1.035); Urobilinogen,Urine <2.0 mg/dL (<2.0)
[2020-04-15 13:33] LABS: Basophils % (A) 0 %; Eosinophils # (A) 0.1 k/uL (0-0.7); Eosinophils % (A) 1 %; HCT 36.6 % (34.0-46.0); HGB 11.2 gm/dL (11.4-16.0); Hypochromasia Marked; Lymphocytes # (A) 0.6 k/uL (1.0-4.8); Lymphocytes % (A) 10 %; MCH 29.3 pg (25.0-35.0); MCHC 30.7 g/dL (31.0-37.0); MCV 95.5 fL (80.0-100.0); Mean Platelet Volume 9.6; Monocytes # (A) 0.3 k/uL (0-1.0); Monocytes % (A) 5 %; Neutrophils # (A) 4.9 k/uL (1.3-7.7); Neutrophils % (A) 83 %; Platelet Count 239 k/uL (150-450); RBC 3.83 m/uL (3.80-5.40); WBC 5.9 k/uL (3.8-10.6)
[2020-04-15 13:35] LABS: Ketones,Urine 2+ (Negative)
[2020-04-15 13:50] LABS: INR 0.9 (<1.2); Prothrombin Time 9.9 sec (9.0-12.0)
[2020-04-15 13:51] LABS: Albumin 3.3 g/dL (3.5-5.0); Calcium 8.7 mg/dL (8.4-10.2); Magnesium 2.2 mg/dL (1.6-2.3); Potassium 4.2 mmol/L (3.5-5.1); Total Bilirubin 0.6 mg/dL (0.2-1.3); Total Protein 5.7 g/dL (6.3-8.2)
[2020-04-15 13:56] LABS: Partial Thromboplastin Time 18.7 sec (22.0-30.0)
--- NOTE | 2020-04-15 14:05 | XR ---
EXAMINATION TYPE: XR chest 2V DATE OF EXAM: 04/15/2020 COMPARISON: Chest x-ray January 04, 2020. HISTORY: Shortness of breath. TECHNIQUE: Frontal and lateral views of the chest are obtained. FINDINGS: There is chronic parenchymal changes bilaterally without suspicious focal air space opacit y, pleural effusion, or pneumothorax seen. The cardiac silhouette size is enlarged on current study with atherosclerotic thoracic aorta. Multilevel spurring in thoracic spine. IMPRESSION: Cardiomegaly and chronic parenchymal changes without acute pulmonary process.
[2020-04-15] MEDS ORDERED: SODIUM CHLORIDE 0.9% 1,000 ML IV STA ×2 (14:28)
[2020-04-15] MEDS ORDERED: INSULIN REGULAR 100 UNIT/ML VIAL IV ONE (14:29)
[2020-04-15] MEDS ORDERED: INSULIN REGULAR BOLUS (FROM DRIP BAG) IV ONE (14:40)
[2020-04-15] MEDS ORDERED: Potassium Replacement Protocol 1 EACH MISC MISCELLANE PRN (14:40)
[2020-04-15] MEDS ORDERED: Magnesium Replacement Protocol 1 EACH MISC MISCELLANE PRN (14:40)
[2020-04-15] MEDS: SODIUM CHLORIDE 0.9% 1,000 ML IV SCH ×2 (14:43→20:37)
[2020-04-15] MEDS ORDERED: NITROGLYCERIN SL TABS 0.4 MG TAB SUBLINGUAL PRN (14:50)
[2020-04-15] MEDS ORDERED: HEPARIN SODIUM,PORCINE 5,000 UNIT/ML 1 ML VIAL IV ONE (14:50)
[2020-04-15] MEDS ORDERED: HEPARIN SOD,PORK IN 0.45% NACL 25,000 UNIT in 0.45% NACL 1 250ML.BAG IV SCH (15:00)
[2020-04-15 15:33] LABS: VBG PH 7.35 (7.31-7.41)
[2020-04-15] MEDS ORDERED: MONTELUKAST 10 MG TAB PO PRN (15:35)
--- NOTE | 2020-04-15 15:37 | P.CNPUL ---
History of Present Illness Consult date: 04/15/20 Chief complaint: Elevated blood sugars History of present illness: There is a 70-year-old female patient, known history of diabetes mellitus insu shilpi-dependent with a very brittle blood sugar, 40 controlled on outpatient basis was being managed by her primary care physician and endocrinology. Recently the patient had a change in her diabetic medication regimen and the patient developed worsening hyperglycemia. She claims that her blood sugars already run very high and the blood sugars came up to the 700s range was feeling quite weak and lethargic and tired and for that reason she came into the emergency department. Note that in ED, the patient's blood work showed a blood sugar of 758, she had anion gap of 23 with a serum bicarb of 14, she had lactic acid of 2.6 and the troponin was 0.128 and she had a CPK of 177. The proBNP level was 1660 and the liver function tests were essentially within normal limits. The patient had a normal coagulation profile. UA showed +4 glucose, +2 ketones and her serum was positive for acetone. She has no chest pain. EKG was within normal limits without any acute ischemic changes. The patient had old septal infarct with Q waves over the anterior leads. The patient was free of any chest pain. No nausea. No vomiting. No shortness of breath. No fever. No chills. The chest x-ray showed some cardiomegaly with chronic changes without any acute process. She was given IV fluids at the rate of 200 mL of normal saline and she received a bolus of 1 L of normal saline and following that she was placed on a maintenance. She will be also started on a insulin drip per protocol to manage her DKA and the patient will be transferred to the intensive care unit. She was also started on a heparin drip per emergency. She is also on aspirin. No hypotension. No altered mentation. She is very much appropriate at this point in time. Note that the patient is known to have coronary artery disease and she has undergone previous PCI to PDA and RCA in addition to previous history of DVT of the lower extremity, hypertension, poor blood sugar control along with impaired neuropathy related to diabetes mellitus, narcolepsy, chronic back pain, peripheral vascular disease, hypertension, hyperlipidemia and chronic debility secondary to above-mentioned comorbidities. Based on our records, the patient's HbA1c has been consistently elevated above 12 and the patient's blood sugars been under poor control. Review of Systems Constitutional: Reports daytime sleepiness, Reports fatigue, Reports weakness Eyes: denies as per HPI, denies blurred vision, denies bulging eye, denies decreased vision, denies diplopia, denies discharge, denies dry eye, denies irritation, denies itching, denies pain, denies photophobia, denies loss of peripheral vision, denies loss of vision, denies tunnel vision/blind spots Ears: deny: decreased hearing, ear discharge, earache, tinnitus Ears, nose, mouth and throat: Reports as per HPI Breasts: absent: as per HPI, change in shape, gynecomastia, masses, nipple discharge, pain, skin changes, swelling Cardiovascular: Reports as per HPI Respiratory: Reports as per HPI Gastrointestinal: Reports as per HPI Genitourinary: Reports as per HPI Menstruation: Reports amenorrhea Musculoskeletal: Reports as per HPI Musculoskeletal: absent: ankle pain, ankle stiffness, ankle swelling Integumentary: Reports as per HPI Neurological: Reports weakness Psychiatric: Reports hypersomnia, Reports sleep disturbances Endocrine: Reports as per HPI, Reports fatigue Hematologic/Lymphatic: Reports as per HPI Allergic/Immunologic: Reports as per HPI Past Medical History Past Medical History: Coronary Artery Disease (CAD), Diabetes Mellitus, Deep Vein Thrombosis (DVT), GERD/Reflux, Hyperlipidemia, Hypertension, Osteoarthritis (OA), Vascular Disorder Additional Past Medical History / Comment(s): IDDM type I with diabetic neuropathy, narcolepsy, DVTs L lower extremity, vertigo occasionally, low back pian with bilateral sciatica, PAD, pneumothorax when pt was in her 20s with chest tube, constipation, bronchitis. The patient also had a infection will COVID 19 on 06/28/2019 from which she recovered. History of Any Multi-Drug Resistant Organisms: None Reported Past Surgical History: Appendectomy, Cholecystectomy, Heart Catheterization With Stent, Hysterectomy, Tubal Ligation Additional Past Surgical History / Comment(s): PCI/stent, ectopic pregnancies with eventual total hysterectomy, EGD, colonoscopy, L breast biopsy-benign, bilateral carpal tunnel release, bilateral eyes laser surgery/lens. Past Anesthesia/Blood Transfusion Reactions: Previous Problems w/ Anesthesia, Postoperative Nausea & Vomiting (PONV) Additional Past Anesthesia/Blood Transfusion Reaction / Comment(s): PT STATES HER AND HER FAMILY HAVE DIFFICULTY WAKING UP Date of Last Stent Placement:: Past Psychological History: No Psychological Hx Reported Smoking Status: Former smoker Past Alcohol Use History: None Reported Past Drug Use History: None Reported - Past Family History Mother Family Medical History: Hypertension, Seizure Disorder Additional Family Medical History / Comment(s): Mother at age 75 Father Family Medical History: Renal Disease Additional Family Medical History / Comment(s): Father at age 58 from acute renal failure and he was an alcoholic. Son(s) Family Medical History: No Reported History Additional Family Medical History / Comment(s): Patient has 2 sons with no major medical problems. Medications and Allergies Home Medications Medication Instructions Recorded Confirmed Type Montelukast Sodium [Singulair] 10 mg PO HS PRN 01/30/19 04/15/20 History Rosuvastatin [Crestor] 10 mg PO DAILY 01/30/19 04/15/20 History Insulin Aspart [NovoLOG Flexpen] See Protocol SQ AC-TID 06/26/19 04/15/20 Hi story Aspirin 81 mg PO DAILY chew 06/30/19 04/15/20 Rx Cholecalciferol [Vitamin D3 (25 25 mcg PO DAILY 01/04/20 04/15/20 History Mcg = 1000 Iu)] Losartan Potassium [Cozaar] 50 mg PO BID 01/04/20 04/15/20 History Carvedilol [Coreg] 12.5 mg PO BID 04/15/20 04/15/20 History Insulin Aspart [NovoLOG Flexpen] 6 unit SQ AC-TID 04/15/20 04/15/20 History Insulin Glargine,Hum.rec.anlog See Protocol SQ HS 04/15/20 04/15/20 History [Toujeo Solostar] hydrALAZINE HCL [Apresoline] 50 mg PO TID 04/15/20 04/15/20 History Allergies Allergy/AdvReac Type Severity Reaction Status Date / Time morphine AdvReac PASSES OUT Verified 04/15/20 15:14 nitroglycerin AdvReac PASSES OUT Verified 04/15/20 15:14 Sulfa (Sulfonamide AdvReac Itching Verified 04/15/20 15:14 Antibiotics) Physical Exam Vitals: Vital Signs Temp Pulse Resp BP Pulse Ox 04/15/20 14:06 76 18 137/74 95 04/15/20 13:06 18 04/15/20 12:06 18 04/15/20 11:58 97.7 F 76 18 139/70 99 Intake and Output 04/15/20 04/15/20 04/15/20 06:59 14:59 22:59 Output Total 300 Balance -300 Output: Urine 300 Straight 300 Other: Weight 64.864 kg The patient appeared well nourished and normally developed. Vital signs as documented. Head exam is unremarkable. No scleral icterus or corneal arcus noted. Neck is without jugular venous distension, thyromegaly, or carotid bruits. Carotid upstrokes are brisk bilaterally. Lungs are clear to auscultation and percussion. Cardiac exam reveals the PMI to be normally sized and situated. Rhythm is regular. First and second heart sounds normal. No murmurs, rubs or gallops. Abdominal exam reveals normal bowel sounds, no masses, no organomegaly and no aortic enlargement. Extremities are nonedematous and both femoral and pedal pulses are normal.Examination of the skin revealed no evidence of signi ficant rashes, suspicious appearing nevi or other concerning lesions. Neurologically the patient is awake and alert and there is no focal neurological deficits. Results - Laboratory Findings CBC and BMP: 04/15/20 12:53 04/15/20 12:53 ABG WBC 5.9 k/uL (3.8-10.6) 04/15/20 12:53 RBC 3.83 m/uL (3.80-5.40) 04/15/20 12:53 Hgb 11.2 gm/dL (11.4-16.0) L 04/15/20 12:53 Hct 36.6 % (34.0-46.0) 04/15/20 12:53 MCV 95.5 fL (80.0-100.0) 04/15/20 12:53 MCH 29.3 pg (25.0-35.0) 04/15/20 12:53 MCHC 30.7 g/dL (31.0-37.0) L 04/15/20 12:53 RDW 14.0 % (11.5-15.5) 04/15/20 12:53 Plt Count 239 k/uL (150-450) 04/15/20 12:53 MPV 9.6 04/15/20 12:53 Neutrophils % 83 % 04/15/20 12:53 Lymphocytes % 10 % 04/15/20 12:53 Monocytes % 5 % 04/15/20 12:53 Eosinophils % 1 % 04/15/20 12:53 Basophils % 0 % 04/15/20 12:53 Neutrophils # 4.9 k/uL (1.3-7.7) 04/15/20 12:53 Lymphocytes # 0.6 k/uL (1.0-4.8) L 04/15/20 12:53 Monocytes # 0.3 k/uL (0-1.0) 04/15/20 12:53 Eosinophils # 0.1 k/uL (0-0.7) 04/15/20 12:53 Basophils # 0.0 k/uL (0-0.2) 04/15/20 12:53 Hypochromasia Marked 04/15/20 12:53 PT 9.9 sec (9.0-12.0) 04/15/20 12:53 INR 0.9 (<1.2) 04/15/20 12:53 APTT 18.7 sec (22.0-30.0) L 04/15/20 12:53 Sodium 132 mmol/L (137-145) L 04/15/20 12:53 Potassium 4.2 mmol/L (3.5-5.1) 04/15/20 12:53 Chloride 95 mmol/L (98-107) L 04/15/20 12:53 Carbon Dioxide 14 mmol/L (22-30) L 04/15/20 12:53 Anion Gap 23 mmol/L 04/15/20 12:53 BUN 33 mg/dL (7-17) H 04/15/20 12:53 Creatinine 1.11 mg/dL (0.52-1.04) H 04/15/20 12:53 Est GFR (CKD-EPI)AfAm 58 (>60 ml/min/1.73 sqM) 04/15/20 12:53 Est GFR (CKD-EPI)NonAf 50 (>60 ml/min/1.73 sqM) 04/15/20 12:53 Glucose 758 mg/dL (74-99) H* 04/15/20 12:53 Plasma Lactic Acid [place] 2.6 mmol/L (0.7-2.0) H* 04/15/20 12:53 Calcium 8.7 mg/dL (8.4-10.2) 04/15/20 12:53 Magnesium 2.2 mg/dL (1.6-2.3) 04/15/20 12:53 Total Bilirubin 0.6 mg/dL (0.2-1.3) 04/15/20 12:53 AST 32 U/L (14-36) 04/15/20 12:53 ALT 26 U/L (4-34) 04/15/20 12:53 Alkaline Phosphatase 97 U/L (38-126) 04/15/20 12:53 Creatine Kinase 177 U/L (30-135) H 04/15/20 12:53 Troponin I 0.128 ng/mL (0.000-0.034) H* 04/15/20 12:53 NT-Pro-B Natriuret Pep 1660 pg/mL 04/15/20 12:53 Total Protein 5.7 g/dL (6.3-8.2) L 04/15/20 12:53 Albumin 3.3 g/dL (3.5-5.0) L 04/15/20 12:53 Urine Color Colorless 04/15/20 13:00 Urine Appearance Clear (Clear) 04/15/20 13:00 Urine pH 5.0 (5.0-8.0) 04/15/20 13:00 Ur Specific [place] 1.026 (1.001-1.035) 04/15/20 13:00 Urine Protein Negative (Negative) 04/15/20 13:00 Urine Glucose (UA) 4+ (Negative) H 04/15/20 13:00 Urine Ketones 2+ (Negative) H 04/15/20 13:00 Urine Blood Negative (Negative) 04/15/20 13:00 Urine Nitrite Negative (Negative) 04/15/20 13:00 Urine Bilirubin Negative (Negative) 04/15/20 13:00 Urine Urobilinogen <2.0 mg/dL (<2.0) 04/15/20 13:00 Ur Leukocyte Esterase Negative (Negative) 04/15/20 13:00 Acetone, Qual Positive (Negative) 04/15/20 12:53 PT/INR, D-dimer PT 9.9 sec (9.0-12.0) 04/15/20 12:53 INR 0.9 (<1.2) 04/15/20 12:53 Abnormal lab findings: Abnormal Labs 04/15/20 04/15/20 04/15/20 12:53 12:53 12:53 Hgb 11.2 L MCHC 30.7 L Lymphocytes # 0.6 L APTT 18.7 L Sodium 132 L Chloride 95 L Carbon Dioxide 14 L BUN 33 H Creatinine 1.11 H Glucose 758 H* Plasma Lactic Acid [place] Creatine Kinase 177 H Troponin I Total Protein 5.7 L Albumin 3.3 L Urine Glucose (UA) Urine Ketones 04/15/20 04/15/20 04/15/20 12:53 12:53 13:00 Hgb MCHC Lymphocytes # APTT Sodium Chloride Carbon Dioxide BUN Creatinine Glucose Plasma Lactic Acid [place] 2.6 H* Creatine Kinase Troponin I 0.128 H* Total Protein Albumin Urine Glucose (UA) 4+ H Urine Ketones 2+ H Assessment and Plan Plan: 1 DKA with mild anion gap metabolic acidosis. Elevated blood sugars have been above 700 and the patient was hospital because of dehydration and poor blood sugar control in addition to mild DKA and currently she was given a liter of bolus and currently she is running at 200 mL of normal saline in addition to an insulin drip for blood sugar control. She'll be moved to the intensive care unit. Based on a DKA protocol. No altered mentation. No major the cardiac disturbances. Anion gap was 23. 2 diabetes mellitus type 2 with poor blood sugar control, and persistently elevated HbA1c. The patient is a very brittle diabetic. 3 coronary artery disease with previous coronary intervention and stenting of RCA and PDA. The patient has troponin leak without any acute ischemic changes or chest pain. EKG is consistent with old Q waves consistent with an old Q wave part. 4 previous history of DVT currently on no anticoagulants 5 anxiety/panic 6 COVID 19 infection in June 2019, recovered 7 coronary artery disease 8 hypertension 9 hyperlipidemia 10 ALLERGIC rhinitis 11 diabetic peripheral neuropathy 12 chronic back pain and sciatica 13 peripheral vascular disease 14 remote history of a pneumothorax requiring chest tube insertion Plan Continue IV fluids and treatment of DKA protocol with insulin drip. We'll monitor the anion gap metabolic acidosis and make necessary adjustments in the insulin drip and fluids based on her clinical response. The cholesterol be checked every 4 hours in the ICU. Monitor the troponins Keep IV heparin for now Will resume home medications including Coreg, aspirin, and Singulair and Crestor. Hold the losartan and hydralazine for now We'll continue to follow.
[2020-04-15] MEDS: INSULIN REGULAR 100 UNIT in SODIUM CHLORIDE 0.9% 100 ML IV SCH (15:39)
[2020-04-15 16:12] LABS: Glucose,Whole Blood 436 mg/dL (75-99)
[2020-04-15 17:19] LABS: Glucose,Whole Blood 415 mg/dL (75-99)
[2020-04-15 18:19] LABS: African American GFR (CKD) >90 (>60 ml/min/1.73 sqM); Anion Gap 7 mmol/L; Blood Urea Nitrogen 19 mg/dL (7-17); Carbon Dioxide 14 mmol/L (22-30); Chloride 119 mmol/L (98-107); Glucose 284 mg/dL (74-99); Non-African American GFR(CKD) >90 (>60 ml/min/1.73 sqM); Phosphorus 1.7 mg/dL (2.5-4.5); Sodium 140 mmol/L (137-145)
[2020-04-15 18:29] LABS: Potassium 2.1 mmol/L (3.5-5.1)
[2020-04-15 18:48] LABS: Glucose,Whole Blood 307 mg/dL (75-99)
[2020-04-15] MEDS: POTASSIUM CHLORIDE ER 20 MEQ TAB.ER PO SCH ×3 (18:49→20:41)
[2020-04-15] MEDS: carvediloL 12.5 MG TAB PO SCH (18:49)
[2020-04-15 19:38] LABS: Glucose,Whole Blood 281 mg/dL (75-99)
[2020-04-15 20:33] LABS: Glucose,Whole Blood 277 mg/dL (75-99)
[2020-04-15] MEDS: D5-0.45% NACL WITH KCL 20MEQ/L 1,000 ML IV SCH (20:35)
[2020-04-15 21:28] LABS: Phosphorus 2.8 mg/dL (2.5-4.5); Potassium 3.9 mmol/L (3.5-5.1)
[2020-04-15 21:31] LABS: Glucose,Whole Blood 338 mg/dL (75-99)
[2020-04-15] MEDS ORDERED: POTASSIUM CHLORIDE ER 20 MEQ TAB.ER PO SCH (22:00)
[2020-04-15 22:39] LABS: Glucose,Whole Blood 318 mg/dL (75-99)
[2020-04-15 23:32] LABS: Glucose,Whole Blood 254 mg/dL (75-99)
[2020-04-16 00:42] LABS: Glucose,Whole Blood 222 mg/dL (75-99)
[2020-04-16 01:00] LABS: Calcium 8.2 mg/dL (8.4-10.2); Potassium 3.9 mmol/L (3.5-5.1)
[2020-04-16 01:42] LABS: Glucose,Whole Blood 155 mg/dL (75-99)
[2020-04-16] MEDS: SODIUM CHLORIDE 0.9% 1,000 ML IV SCH ×3 (02:39→09:51)
[2020-04-16 02:54] LABS: Glucose,Whole Blood 147 mg/dL (75-99)
[2020-04-16 03:57] LABS: Glucose,Whole Blood 95 mg/dL (75-99)
[2020-04-16 04:19] LABS: Basophils % (A) 0 %; Eosinophils # (A) 0.1 k/uL (0-0.7); Eosinophils % (A) 1 %; HCT 30.3 % (34.0-46.0); Lymphocytes # (A) 1.7 k/uL (1.0-4.8); Lymphocytes % (A) 19 %; MCH 29.1 pg (25.0-35.0); MCHC 31.9 g/dL (31.0-37.0); MCV 91.2 fL (80.0-100.0); Mean Platelet Volume 8.5; Monocytes # (A) 0.6 k/uL (0-1.0); Monocytes % (A) 7 %; Neutrophils # (A) 6.2 k/uL (1.3-7.7); Neutrophils % (A) 71 %; Platelet Count 208 k/uL (150-450); RBC 3.33 m/uL (3.80-5.40); RDW 14.4 % (11.5-15.5); WBC 8.8 k/uL (3.8-10.6)
[2020-04-16 04:22] LABS: HGB 9.7 gm/dL (11.4-16.0)
[2020-04-16 04:35] LABS: Glucose,Whole Blood 105 mg/dL (75-99)
--- NOTE | 2020-04-16 04:44 | P.HPIM ---
History of Present Illness H&P Date: 04/15/20 Chief Complaint: DKA/non-ST elevation UT. This is a 70-year-old -[place] female one of my patient with a previous medical history significant for diabetes mellitus type 1 with diabetic polyneuropathy, hypertension and hypertensive cardiovascular disease with left ventricular hypertrophy, CAD status post PCI of the PDA off the RCA back in 2010, history of DVT in lower extremity, history of narcolepsy, significant weight loss over the last few months since her with metastatic lung cancer, and she had lost quite a bit of weight and not controlling her diabetes very well her hemoglobin A1c is around 14%, patient developed to have a significant dizziness and lightheadedness today in the morning while she was getting up from but she could not lift her head up she waited until her grandson came in and she asked for help apparently her blood glucose was checked he was about 600, she was extremely fatigued and tired she was nauseated with poor appetite, she had no diarrhea, she had no chest pain or shortness breath, EMS was called and the patient was transferred to [facility] for evaluation and treatment, patient was seen by her oil burner few days ago and she was started on a new insulin Toujeo instead of Lantus along with a sliding scale insulin, patient seems to have significant issues with diabetes control. Review of Systems Constitutional: Reports anorexia, Reports fatigue, Reports weakness, Reports weight loss Eyes: bilateral blurred vision, bilateral decreased vision, denies bulging eye Ears: deny: decreased hearing Ears, nose, mouth and throat: Denies dysphagia, Denies neck lump, Denies sore throat Cardiovascular: Reports decreased exercise tolerance, Reports leg edema, Reports shortness of breath, Denies chest pain, Denies lightheadedness, Denies syncope Respiratory: Denies congestion, Denies cough with sputum, Denies home oxygen, Denies sleep apnea, Denies snoring, Denies wheezing Gastrointestinal: Reports loss of appetite, Reports nausea, Denies abdominal pain, Denies bloating, Denies BRBPR, Denies diarrhea, Denies vomiting Genitourinary: Denies dysuria, Denies nocturia Menstruation: Reports postmenopausal Musculoskeletal: Reports atrophy, Reports myalgias Musculoskeletal: bilateral: ankle swelling, foot swelling, absent: ankle pain, ankle stiffness, elbow pain, elbow stiffness, elbow swelling, foot pain, foot stiffness, hand pain, hand stiffness, hand swelling, hip pain, hip stiffness, hip swelling, knee pain, knee stiffness, knee swelling, shoulder pain, shoulder stiffness, shoulder swelling, wrist pain, wrist stiffness, wrist swelling Integumentary: Denies pruritus, Denies rash Neurological: Reports memory loss, Reports sensory deficit, Reports weakness Psychiatric: Reports anxiety, Reports depression, Reports hypersomnia, Reports memory loss, Denies sadness/tearfulness, Denies sleep disturbances, Denies suicidal ideation Endocrine: Reports fatigue, Reports nocturia, Reports polydipsia, Reports polyuria, Reports weight change Past Medical History Past Medical History: Coronary Artery Disease (CAD), Diabetes Mellitus, Deep Vein Thrombosis (DVT), GERD/Reflux, Hyperlipidemia, Hypertension, Osteoarthritis (OA), Vascular Disorder Additional Past Medical History / Comment(s): IDDM type I with diabetic neuropathy, narcolepsy, DVTs L lower extremity, vertigo occasionally, low back pian with bilateral sciatica, PAD, pneumothorax when pt was in her 20s with chest tube, constipation, bronchitis. The patient also had a infection will COVID 19 on 06/28/2019 from which she recovered. History of Any Multi-Drug Resistant Organisms: None Reported Past Surgical History: Appendectomy, Cholecystectomy, Heart Catheterization With Stent, Hysterectomy, Tubal Ligation Additional Past Surgical History / Comment(s): PCI/stent, ectopic pregnancies with eventual total hysterectomy, EGD, colonoscopy, L breast biopsy-benign, bilateral carpal tunnel release, bilateral eyes laser surgery/lens. Past Anesthesia/Blood Transfusion Reactions: Previous Problems w/ Anesthesia, Postoperative Nausea & Vomiting (PONV) Additional Past Anesthesia/Blood Transfusion Reaction / Comment(s): PT STATES HER AND HER FAMILY HAVE DIFFICULTY WAKING UP Date of Last Stent Placement:: Past Psychological History: No Psychological Hx Reported Smoking Status: Former smoker Past Alcohol Use History: None Reported Additional Past Alcohol Use History / Comment(s): STARTED SMOKING AT AGE 12, QUIT AT AGE 26 SMOKED 1 PPD Past Drug Use History: None Reported - Past Family History Mother Family Medical History: Hypertension, Seizure Disorder Additional Family Medical History / Comment(s): Mother at age 75 Father Family Medical History: Renal Disease Additional Family Medical History / Comment(s): Father at age 58 from acute renal failure and he was an alcoholic. Son(s) Family Medical History: No Reported History Additional Family Medical History / Comment(s): Patient has 2 sons with no major medical problems. Medications and Allergies Home Medications Medication Instructions Recorded Confirmed Type Montelukast Sodium [Singulair] 10 mg PO HS PRN 01/30/19 04/15/20 History Rosuvastatin [Crestor] 10 mg PO DAILY 01/30/19 04/15/20 History Insulin Aspart [NovoLOG Flexpen] See Protocol SQ AC-TID 06/26/19 04/15/20 Hi story Aspirin 81 mg PO DAILY chew 06/30/19 04/15/20 Rx Cholecalciferol [Vitamin D3 (25 25 mcg PO DAILY 01/04/20 04/15/20 History Mcg = 1000 Iu)] Losartan Potassium [Cozaar] 50 mg PO BID 01/04/20 04/15/20 History Carvedilol [Coreg] 12.5 mg PO BID 04/15/20 04/15/20 History Insulin Aspart [NovoLOG Flexpen] 6 unit SQ AC-TID 04/15/20 04/15/20 History Insulin Glargine,Hum.rec.anlog See Protocol SQ HS 04/15/20 04/15/20 History [Toujeo Solostar] hydrALAZINE HCL [Apresoline] 50 mg PO TID 04/15/20 04/15/20 History Allergies Allergy/AdvReac Type Severity Reaction Status Date / Time morphine AdvReac PASSES OUT Verified 04/15/20 15:14 nitroglycerin AdvReac PASSES OUT Verified 04/15/20 15:14 Sulfa (Sulfonamide AdvReac Itching Verified 04/15/20 15:14 Antibiotics) Physical Exam Vitals: Vital Signs Temp Pulse Resp BP Pulse Ox 04/16/20 04:00 97.7 F 69 12 103/61 100 04/16/20 03:00 66 14 90/54 99 04/16/20 02:00 68 14 114/66 100 04/16/20 01:00 69 14 101/50 100 04/16/20 00:00 97.8 F 67 13 107/49 100 04/15/20 23:00 68 12 97/68 99 04/15/20 22:35 70 10 L 97/68 100 04/15/20 20:00 98.6 F 76 121/67 100 04/15/20 19:47 77 16 121/67 100 04/15/20 19:00 77 18 143/69 99 04/15/20 18:00 79 18 122/63 99 04/15/20 17:00 73 18 131/64 99 04/15/20 16:00 75 18 133/70 99 04/15/20 15:00 73 18 125/70 99 04/15/20 14:06 76 18 137/74 95 04/15/20 14:00 141/71 04/15/20 13:06 18 04/15/20 13:00 140/73 100 04/15/20 12:06 18 04/15/20 12:03 95 04/15/20 11:58 97.7 F 76 18 139/70 99 Intake and Output 04/15/20 04/15/20 04/16/20 14:59 22:59 06:59 Intake Total 598.674 927.234 Output Total 300 500 Balance -300 98.674 927.234 Intake: IV 550 900 D5-0.45% NaCl with KCl 150 900 20Meq/l 1,000 ml @ 150 mls/hr IV .[id number] [facility]OM[facility] Rx# :[id number] Sodium Chloride 0.9% 1, 400 000 ml @ 200 mls/hr IV . Q5H [facility] Rx#:[id number] Intake, IV Titration 48.674 27.234 Amount Insulin Regular 100 unit 48.674 27.234 In Sodium Chloride 0.9% 100 ml @ 0.1 UNITS/KG/HR 6.551 mls/hr IV .[id number] [facility]OM[facility] Rx#:[id number] Output: Urine 300 500 Straight 300 Other: Weight 64.864 kg 66.9 kg Physical examination: HEENT: Head is atraumatic, normocephalic, pupils were equal round reactive to light and accommodation, extraocular muscle movement were intact, mucous membranes of the mouth are somewhat dry Neck: Supple no JVP. Chest: Clear to auscultation bilaterally there is no crackles, no wheezes, no chest wall tenderness, no intercostal retractions. Heart: First heart sound is depressed, second heart sound is normal, there is systolic ejection murmur 2/6 located in the left sternal border. Abdomen: Soft, nontender, nondistended, positive bowel sounds. Extremities: There is +1 edema, no calf tenderness, dorsalis pedis +1 bilaterally. Neurologic examination: Patient is awake alert and oriented 3, cranial nerves III-12 appear grossly intact, muscle power 4 out of 5 in upper and lower extremities bilaterally, deep tendon reflexes were normal. Results CBC & Chem 7: 04/16/20 03:39 04/15/20 23:45 Labs: Abnormal Lab Results - Last 24 Hours (Table) 04/15/20 04/15/20 04/15/20 Range/Units 12:53 12:53 12:53 RBC (3.80-5.40) m/uL Hgb 11.2 L (11.4-16.0) gm/dL Hct (34.0-46.0) % MCHC 30.7 L (31.0-37.0) g/dL Lymphocytes # 0.6 L (1.0-4.8) k/uL APTT 18.7 L (22.0-30.0) sec VBG HCO3 (24-28) mmol/L Sodium 132 L (137-145) mmol/L Potassium (3.5-5.1) mmol/L Chloride 95 L (98-107) mmol/L Carbon Dioxide 14 L (22-30) mmol/L BUN 33 H (7-17) mg/dL Creatinine 1.11 H (0.52-1.04) mg/dL Glucose 758 H* (74-99) mg/dL POC Glucose (mg/dL) (75-99) mg/dL Plasma Lactic Acid Celestino (0.7-2.0) mmol/L Calcium (8.4-10.2) mg/dL Phosphorus (2.5-4.5) mg/dL Creatine Kinase 177 H (30-135) U/L Troponin I (0.000-0.034) ng/mL Total Protein 5.7 L (6.3-8.2) g/dL Albumin 3.3 L (3.5-5.0) g/dL Urine Glucose (UA) (Negative) Urine Ketones (Negative) 04/15/20 04/15/20 04/15/20 Range/Units 12:53 12:53 13:00 RBC (3.80-5.40) m/uL Hgb (11.4-16.0) gm/dL Hct (34.0-46.0) % MCHC (31.0-37.0) g/dL Lymphocytes # (1.0-4.8) k/uL APTT (22.0-30.0) sec VBG HCO3 (24-28) mmol/L Sodium (137-145) mmol/L Potassium (3.5-5.1) mmol/L Chloride (98-107) mmol/L Carbon Dioxide (22-30) mmol/L BUN (7-17) mg/dL Creatinine (0.52-1.04) mg/dL Glucose (74-99) mg/dL POC Glucose (mg/dL) (75-99) mg/dL Plasma Lactic Acid Celestino 2.6 H* (0.7-2.0) mmol/L Calcium (8.4-10.2) mg/dL Phosphorus (2.5-4.5) mg/dL Creatine Kinase (30-135) U/L Troponin I 0.128 H* (0.000-0.034) ng/mL Total Protein (6.3-8.2) g/dL Albumin (3.5-5.0) g/dL Urine Glucose (UA) 4+ H (Negative) Urine Ketones 2+ H (Negative) 04/15/20 04/15/20 04/15/20 Range/Units 16:03 16:47 16:47 RBC (3.80-5.40) m/uL Hgb (11.4-16.0) gm/dL Hct (34.0-46.0) % MCHC (31.0-37.0) g/dL Lymphocytes # (1.0-4.8) k/uL APTT (22.0-30.0) sec VBG HCO3 (24-28) mmol/L Sodium (137-145) mmol/L Potassium 2.1 L* (3.5-5.1) mmol/L Chloride 119 H (98-107) mmol/L Carbon Dioxide 14 L (22-30) mmol/L BUN 19 H (7-17) mg/dL Creatinine (0.52-1.04) mg/dL Glucose 284 H (74-99) mg/dL POC Glucose (mg/dL) 436 H (75-99) mg/dL Plasma Lactic Acid Celestino (0.7-2.0) mmol/L Calcium (8.4-10.2) mg/dL Phosphorus 1.7 L (2.5-4.5) mg/dL Creatine Kinase (30-135) U/L Troponin I 0.138 H* (0.000-0.034) ng/mL Total Protein (6.3-8.2) g/dL Albumin (3.5-5.0) g/dL Urine Glucose (UA) (Negative) Urine Ketones (Negative) 04/15/20 04/15/20 04/15/20 Range/Units 16:47 17:07 18:28 RBC (3.80-5.40) m/uL Hgb (11.4-16.0) gm/dL Hct (34.0-46.0) % MCHC (31.0-37.0) g/dL Lymphocytes # (1.0-4.8) k/uL APTT (22.0-30.0) sec VBG HCO3 (24-28) mmol/L Sodium (137-145) mmol/L Potassium (3.5-5.1) mmol/L Chloride (98-107) mmol/L Carbon Dioxide (22-30) mmol/L BUN (7-17) mg/dL Creatinine (0.52-1.04) mg/dL Glucose (74-99) mg/dL POC Glucose (mg/dL) 415 H 307 H (75-99) mg/dL Plasma Lactic Acid Celestino 2.3 H* (0.7-2.0) mmol/L Calcium (8.4-10.2) mg/dL Phosphorus (2.5-4.5) mg/dL Creatine Kinase (30-135) U/L Troponin I (0.000-0.034) ng/mL Total Protein (6.3-8.2) g/dL Albumin (3.5-5.0) g/dL Urine Glucose (UA) (Negative) Urine Ketones (Negative) 04/15/20 04/15/20 04/15/20 Range/Units 19:18 20:01 20:01 RBC (3.80-5.40) m/uL Hgb (11.4-16.0) gm/dL Hct (34.0-46.0) % MCHC (31.0-37.0) g/dL Lymphocytes # (1.0-4.8) k/uL APTT (22.0-30.0) sec VBG HCO3 (24-28) mmol/L Sodium 136 L (137-145) mmol/L Potassium (3.5-5.1) mmol/L Chloride (98-107) mmol/L Carbon Dioxide (22-30) mmol/L BUN 30 H (7-17) mg/dL Creatinine (0.52-1.04) mg/dL Glucose 290 H (74-99) mg/dL POC Glucose (mg/dL) 281 H (75-99) mg/dL Plasma Lactic Acid Celestino (0.7-2.0) mmol/L Calcium (8.4-10.2) mg/dL Phosphorus (2.5-4.5) mg/dL Creatine Kinase (30-135) U/L Troponin I 0.242 H* (0.000-0.034) ng/mL Total Protein (6.3-8.2) g/dL Albumin (3.5-5.0) g/dL Urine Glucose (UA) (Negative) Urine Ketones (Negative) 04/15/20 04/15/20 04/15/20 Range/Units 20:01 20:31 21:30 RBC (3.80-5.40) m/uL Hgb (11.4-16.0) gm/dL Hct (34.0-46.0) % MCHC (31.0-37.0) g/dL Lymphocytes # (1.0-4.8) k/uL APTT (22.0-30.0) sec VBG HCO3 (24-28) mmol/L Sodium (137-145) mmol/L Potassium (3.5-5.1) mmol/L Chloride (98-107) mmol/L Carbon Dioxide (22-30) mmol/L BUN (7-17) mg/dL Creatinine (0.52-1.04) mg/dL Glucose (74-99) mg/dL POC Glucose (mg/dL) 277 H 338 H (75-99) mg/dL Plasma Lactic Acid Celestino 2.5 H* (0.7-2.0) mmol/L Calcium (8.4-10.2) mg/dL Phosphorus (2.5-4.5) mg/dL Creatine Kinase (30-135) U/L Troponin I (0.000-0.034) ng/mL Total Protein (6.3-8.2) g/dL Albumin (3.5-5.0) g/dL Urine Glucose (UA) (Negative) Urine Ketones (Negative) 04/15/20 04/15/20 04/15/20 Range/Units 22:37 23:30 23:31 RBC (3.80-5.40) m/uL Hgb (11.4-16.0) gm/dL Hct (34.0-46.0) % MCHC (31.0-37.0) g/dL Lymphocytes # (1.0-4.8) k/uL APTT (22.0-30.0) sec VBG HCO3 (24-28) mmol/L Sodium (137-145) mmol/L Potassium (3.5-5.1) mmol/L Chloride (98-107) mmol/L Carbon Dioxide (22-30) mmol/L BUN (7-17) mg/dL Creatinine (0.52-1.04) mg/dL Glucose (74-99) mg/dL POC Glucose (mg/dL) 318 H 254 H (75-99) mg/dL Plasma Lactic Acid Celestino 2.8 H* (0.7-2.0) mmol/L Calcium (8.4-10.2) mg/dL Phosphorus (2.5-4.5) mg/dL Creatine Kinase (30-135) U/L Troponin I (0.000-0.034) ng/mL Total Protein (6.3-8.2) g/dL Albumin (3.5-5.0) g/dL Urine Glucose (UA) (Negative) Urine Ketones (Negative) 04/15/20 04/15/20 04/15/20 Range/Units 23:45 23:45 Unknown RBC (3.80-5.40) m/uL Hgb (11.4-16.0) gm/dL Hct (34.0-46.0) % MCHC (31.0-37.0) g/dL Lymphocytes # (1.0-4.8) k/uL APTT 51.1 H (22.0-30.0) sec VBG HCO3 21 L (24-28) mmol/L Sodium 136 L (137-145) mmol/L Potassium (3.5-5.1) mmol/L Chloride (98-107) mmol/L Carbon Dioxide (22-30) mmol/L BUN 30 H (7-17) mg/dL Creatinine (0.52-1.04) mg/dL Glucose 261 H (74-99) mg/dL POC Glucose (mg/dL) (75-99) mg/dL Plasma Lactic Acid Celestino (0.7-2.0) mmol/L Calcium 8.2 L (8.4-10.2) mg/dL Phosphorus (2.5-4.5) mg/dL Creatine Kinase (30-135) U/L Troponin I (0.000-0.034) ng/mL Total Protein (6.3-8.2) g/dL Albumin (3.5-5.0) g/dL Urine Glucose (UA) (Negative) Urine Ketones (Negative) 04/16/20 04/16/20 04/16/20 Range/Units 00:40 01:40 02:42 RBC (3.80-5.40) m/uL Hgb (11.4-16.0) gm/dL Hct (34.0-46.0) % MCHC (31.0-37.0) g/dL Lymphocytes # (1.0-4.8) k/uL APTT (22.0-30.0) sec VBG HCO3 (24-28) mmol/L Sodium (137-145) mmol/L Potassium (3.5-5.1) mmol/L Chloride (98-107) mmol/L Carbon Dioxide (22-30) mmol/L BUN (7-17) mg/dL Creatinine (0.52-1.04) mg/dL Glucose (74-99) mg/dL POC Glucose (mg/dL) 222 H 155 H 147 H (75-99) mg/dL Plasma Lactic Acid Celestino (0.7-2.0) mmol/L Calcium (8.4-10.2) mg/dL Phosphorus (2.5-4.5) mg/dL Creatine Kinase (30-135) U/L Troponin I (0.000-0.034) ng/mL Total Protein (6.3-8.2) g/dL Albumin (3.5-5.0) g/dL Urine Glucose (UA) (Negative) Urine Ketones (Negative) 04/16/20 Range/Units 03:39 RBC 3.33 L (3.80-5.40) m/uL Hgb 9.7 L D (11.4-16.0) gm/dL Hct 30.3 L (34.0-46.0) % MCHC (31.0-37.0) g/dL Lymphocytes # (1.0-4.8) k/uL APTT (22.0-30.0) sec VBG HCO3 (24-28) mmol/L Sodium (137-145) mmol/L Potassium (3.5-5.1) mmol/L Chloride (98-107) mmol/L Carbon Dioxide (22-30) mmol/L BUN (7-17) mg/dL Creatinine (0.52-1.04) mg/dL Glucose (74-99) mg/dL POC Glucose (mg/dL) (75-99) mg/dL Plasma Lactic Acid Celestino (0.7-2.0) mmol/L Calcium (8.4-10.2) mg/dL Phosphorus (2.5-4.5) mg/dL Creatine Kinase (30-135) U/L Troponin I (0.000-0.034) ng/mL Total Protein (6.3-8.2) g/dL Albumin (3.5-5.0) g/dL Urine Glucose (UA) (Negative) Urine Ketones (Negative) Thrombosis Risk Factor Assmnt - DVT/VTE Prophylaxis DVT/VTE Prophylaxis: Pharmacologic Prophylaxis ordered, Mechanical Prophylaxis ordered - Choose All That Apply Other Risk Factors: Yes Each Risk Factor Represents 2 Points: Age 61-74 years Thrombosis Risk Factor Assessment Total Risk Factor Score: 2 Thrombosis Risk Factor Assessment Level: Low Risk Assessment and Plan Assessment: Assessment and plan: 1. Acute kidney injury due to acute tubular necrosis secondary to poor oral intake of fluid . Patient was started on IV fluid in the form of normal saline at 100 mL an hour, we will monitor the patient input and output and daily weight. We will repeat CMP tomorrow morning. 2. Diabetes mellitus type 2 with severe hyperglycemia. Currently DKA. Started the patient on insulin drip, IV fluid resuscitation, admit the patient to the intensive care unit, monitor the patient blood glucose level every hour, and follow the protocol, monitor the patient's electrolytes as well as magnesium and phosphorus. 3. Hyponatremia secondary to hyperglycemia and poor oral intake. Continue IV fluid resuscitation, continue insulin drip, monitor the patient CMP. 4. CAD post-PCI. Continue patient on carvedilol 12.5 mg orally twice every day, aspirin 325 mg orally once a day and atorvastatin 20 mg orally once every day. 5. Hypertension and hypertensive cardiovascular disease. Continue carvedilol 12.5 mg orally twice every day, hold losartan and hydralazine due to hypotens ion. 6. Hyperlipidemia. Continue patient on atorvastatin 20 mg orally once every day. 7. ALLERGIC rhinitis. Continue singular 10 mg at bedtime. 8. History of narcolepsy. Patient never was treated for that, she declined taking medications due to side effects. 9. Non-ST elevation UT. Continue heparin drip for now, continue carvedilol 12.5 mg orally twice every day, aspirin 81 mg once every day, atorvastatin 20 mg once every day, cardiology consultation. 10. DVT prophylaxis. We'll continue with heparin drip and bilateral knee-high JONATHAN hose 11. GI prophylaxis. Continue patient on Protonix 40 mg orally once every day. 12. Admit to inpatient. Estimated length of stay 2 midnights. 13. Patient is full code.
[2020-04-16] MEDS: D5-0.45% NACL WITH KCL 20MEQ/L 1,000 ML IV SCH ×2 (04:53→11:39)
[2020-04-16 05:34] LABS: Glucose,Whole Blood 133 mg/dL (75-99)
[2020-04-16 05:47] LABS: Albumin 2.4 g/dL (3.5-5.0); Calcium 8.3 mg/dL (8.4-10.2); Magnesium 1.9 mg/dL (1.6-2.3); Potassium 4.4 mmol/L (3.5-5.1); Total Bilirubin 0.4 mg/dL (0.2-1.3); Total Protein 4.8 g/dL (6.3-8.2)
[2020-04-16 06:28] LABS: Glucose,Whole Blood 146 mg/dL (75-99)
[2020-04-16] MEDS: INSULIN REGULAR 100 UNIT in SODIUM CHLORIDE 0.9% 100 ML IV SCH (07:09)
[2020-04-16 07:15] LABS: Glucose,Whole Blood 153 mg/dL (75-99)
[2020-04-16 08:18] LABS: Glucose,Whole Blood 127 mg/dL (75-99)
--- NOTE | 2020-04-16 08:45 | P.PN ---
Subjective Progress Note Date: 04/16/20 There is a 70-year-old female patient, known history of diabetes mellitus insul in-dependent with a very brittle blood sugar, 40 controlled on outpatient basis was being managed by her primary care physician and endocrinology. Recently the patient had a change in her diabetic medication regimen and the patient developed worsening hyperglycemia. She claims that her blood sugars already run very high and the blood sugars came up to the 700s range was feeling quite weak and lethargic and tired and for that reason she came into the emergency department. Note that in ED, the patient's blood work showed a blood sugar of 758, she had anion gap of 23 with a serum bicarb of 14, she had lactic acid of 2.6 and the troponin was 0.128 and she had a CPK of 177. The proBNP level was 1660 and the liver function tests were essentially within normal limits. The patient had a normal coagulation profile. UA showed +4 glucose, +2 ketones and her serum was positive for acetone. She has no chest pain. EKG was within normal limits without any acute ischemic changes. The patient had old septal infarct with Q waves over the anterior leads. The patient was free of any chest pain. No nausea. No vomiting. No shortness of breath. No fever. No chills. The chest x-ray showed some cardiomegaly with chronic changes without any acute process. She was given IV fluids at the rate of 200 mL of normal saline and she received a bolus of 1 L of normal saline and following that she was placed on a maintenance. She will be also started on a insulin drip per protocol to manage her DKA and the patient will be transferred to the intensive care unit. She was also started on a heparin drip per emergency. She is also on aspirin. No hypotension. No altered mentation. She is very much appropriate at this point in time. Note that the patient is known to have coronary artery disease and she has undergone previous PCI to PDA and RCA in addition to previous history of DVT of the lower extremity, hypertension, poor blood sugar control along with impaired neuropathy related to diabetes mellitus, narcolepsy, chronic back pain, peripheral vascular disease, hypertension, hyperlipidemia and chronic debility secondary to above-mentioned comorbidities. Based on our records, the patient's HbA1c has been consistently elevated above 12 and the patient's blood sugars been under poor control. on 04/16/2020, the patient is being seen in follow-up in the intensive care unit. Her blood sugars this morning has been under much better control and the blood sugars down to 108. The patient is on insulin drip at 3 units an hour. Her labs from today shows an anion gap of 3 and the patient's serum bicarb is up to 26. She had an easy and fast closure of the anion gap metabolic acidosis. Her troponins were also monitored and the patient had a peak troponin of 0.2. Nevertheless, she remains off free of any chest pain and the patient is still on IV Heparinshe is hemodynamically stable. No pressors. No cardiac arrhythmias. No nausea. No vomiting. No diarrhea. No abdominal pain. No chest pain. Objective - Vital Signs Vital signs: Vital Signs Temp 97.7 F 04/16/20 04:00 Pulse 85 04/16/20 07:00 Resp 15 04/16/20 07:00 BP 108/61 04/16/20 07:00 Pulse Ox 99 04/16/20 07:00 Intake & Output 04/15/20 04/16/20 04/16/20 18:59 06:59 18:59 Intake Total 11.774 1815.634 154.833 Output Total 300 500 Balance -010.035 7550.634 154.833 Weight 66.9 kg 69.1 kg Intake: IV 1750 150 D5-0.45% NaCl with KCl 1350 150 20Meq/l 1,000 ml @ 150 mls/hr IV .[id number] [facility] Rx# :[id number] Sodium Chloride 0.9% 1, 400 000 ml @ 200 mls/hr IV . Q5H [facility] Rx#:[id number] Intake, IV Titration 11.774 65.634 4.833 Amount Insulin Regular 100 unit 11.774 65.634 4.833 In Sodium Chloride 0.9% 100 ml @ 0.1 UNITS/KG/HR 6.551 mls/hr IV .[id number] [facility] Rx#:[id number] Output: Urine 300 500 Straight 300 - Exam The patient appeared well nourished and normally developed. Vital signs as documented. Head exam is unremarkable. No scleral icterus or corneal arcus noted. Neck is without jugular venous distension, thyromegaly, or carotid bruits. Carotid upstrokes are brisk bilaterally. Lungs are clear to auscultation and percussion. Cardiac exam reveals the PMI to be normally sized and situated. Rhythm is regular. First and second heart sounds normal. No murmurs, rubs or gallops. Abdominal exam reveals normal bowel sounds, no masses, no organomegaly and no aortic enlargement. Extremities are nonedematous and both femoral and pedal pulses are normal.Examination of the skin revealed no evidence of significant rashes, suspicious appearing nevi or other concerning lesions. Neurologically the patient is awake and alert and there is no focal neurological deficits. - Labs CBC & Chem 7: 04/16/20 03:39 04/16/20 03:39 Labs: Abnormal Lab Results - Last 24 Hours (Table) 04/15/20 04/15/20 04/15/20 Range/Units 12:53 12:53 12:53 RBC (3.80-5.40) m/uL Hgb 11.2 L (11.4-16.0) gm/dL Hct (34.0-46.0) % MCHC 30.7 L (31.0-37.0) g/dL Lymphocytes # 0.6 L (1.0-4.8) k/uL APTT 18.7 L (22.0-30.0) sec VBG HCO3 (24-28) mmol/L Sodium 132 L (137-145) mmol/L Potassium (3.5-5.1) mmol/L Chloride 95 L (98-107) mmol/L Carbon Dioxide 14 L (22-30) mmol/L BUN 33 H (7-17) mg/dL Creatinine 1.11 H (0.52-1.04) mg/dL Glucose 758 H* (74-99) mg/dL POC Glucose (mg/dL) (75-99) mg/dL Plasma Lactic Acid Celestino (0.7-2.0) mmol/L Calcium (8.4-10.2) mg/dL Phosphorus (2.5-4.5) mg/dL Creatine Kinase 177 H (30-135) U/L Troponin I (0.000-0.034) ng/mL Total Protein 5.7 L (6.3-8.2) g/dL Albumin 3.3 L (3.5-5.0) g/dL Urine Glucose (UA) (Negative) Urine Ketones (Negative) 04/15/20 04/15/20 04/15/20 Range/Units 12:53 12:53 13:00 RBC (3.80-5.40) m/uL Hgb (11.4-16.0) gm/dL Hct (34.0-46.0) % MCHC (31.0-37.0) g/dL Lymphocytes # (1.0-4.8) k/uL APTT (22.0-30.0) sec VBG HCO3 (24-28) mmol/L Sodium (137-145) mmol/L Potassium (3.5-5.1) mmol/L Chloride (98-107) mmol/L Carbon Dioxide (22-30) mmol/L BUN (7-17) mg/dL Creatinine (0.52-1.04) mg/dL Glucose (74-99) mg/dL POC Glucose (mg/dL) (75-99) mg/dL Plasma Lactic Acid Celestino 2.6 H* (0.7-2.0) mmol/L Calcium (8.4-10.2) mg/dL Phosphorus (2.5-4.5) mg/dL Creatine Kinase (30-135) U/L Troponin I 0.128 H* (0.000-0.034) ng/mL Total Protein (6.3-8.2) g/dL Albumin (3.5-5.0) g/dL Urine Glucose (UA) 4+ H (Negative) Urine Ketones 2+ H (Negative) 04/15/20 04/15/20 04/15/20 Range/Units 16:03 16:47 16:47 RBC (3.80-5.40) m/uL Hgb (11.4-16.0) gm/dL Hct (34.0-46.0) % MCHC (31.0-37.0) g/dL Lymphocytes # (1.0-4.8) k/uL APTT (22.0-30.0) sec VBG HCO3 (24-28) mmol/L Sodium (137-145) mmol/L Potassium 2.1 L* (3.5-5.1) mmol/L Chloride 119 H (98-107) mmol/L Carbon Dioxide 14 L (22-30) mmol/L BUN 19 H (7-17) mg/dL Creatinine (0.52-1.04) mg/dL Glucose 284 H (74-99) mg/dL POC Glucose (mg/dL) 436 H (75-99) mg/dL Plasma Lactic Acid Celestino (0.7-2.0) mmol/L Calcium (8.4-10.2) mg/dL Phosphorus 1.7 L (2.5-4.5) mg/dL Creatine Kinase (30-135) U/L Troponin I 0.138 H* (0.000-0.034) ng/mL Total Protein (6.3-8.2) g/dL Albumin (3.5-5.0) g/dL Urine Glucose (UA) (Negative) Urine Ketones (Negative) 04/15/20 04/15/20 04/15/20 Range/Units 16:47 17:07 18:28 RBC (3.80-5.40) m/uL Hgb (11.4-16.0) gm/dL Hct (34.0-46.0) % MCHC (31.0-37.0) g/dL Lymphocytes # (1.0-4.8) k/uL APTT (22.0-30.0) sec VBG HCO3 (24-28) mmol/L Sodium (137-145) mmol/L Potassium (3.5-5.1) mmol/L Chloride (98-107) mmol/L Carbon Dioxide (22-30) mmol/L BUN (7-17) mg/dL Creatinine (0.52-1.04) mg/dL Glucose (74-99) mg/dL POC Glucose (mg/dL) 415 H 307 H (75-99) mg/dL Plasma Lactic Acid Celestino 2.3 H* (0.7-2.0) mmol/L Calcium (8.4-10.2) mg/dL Phosphorus (2.5-4.5) mg/dL Creatine Kinase (30-135) U/L Troponin I (0.000-0.034) ng/mL Total Protein (6.3-8.2) g/dL Albumin (3.5-5.0) g/dL Urine Glucose (UA) (Negative) Urine Ketones (Negative) 0304/15/20 04/15/20 Range/Units 19:18 20:01 20:01 RBC (3.80-5.40) m/uL Hgb (11.4-16.0) gm/dL Hct (34.0-46.0) % MCHC (31.0-37.0) g/dL Lymphocytes # (1.0-4.8) k/uL APTT (22.0-30.0) sec VBG HCO3 (24-28) mmol/L Sodium 136 L (137-145) mmol/L Potassium (3.5-5.1) mmol/L Chloride (98-107) mmol/L Carbon Dioxide (22-30) mmol/L BUN 30 H (7-17) mg/dL Creatinine (0.52-1.04) mg/dL Glucose 290 H (74-99) mg/dL POC Glucose (mg/dL) 281 H (75-99) mg/dL Plasma Lactic Acid Celestino (0.7-2.0) mmol/L Calcium (8.4-10.2) mg/dL Phosphorus (2.5-4.5) mg/dL Creatine Kinase (30-135) U/L Troponin I 0.242 H* (0.000-0.034) ng/mL Total Protein (6.3-8.2) g/dL Albumin (3.5-5.0) g/dL Urine Glucose (UA) (Negative) Urine Ketones (Negative) 04/15/20 04/15/20 04/15/20 Range/Units 20:01 20:31 21:30 RBC (3.80-5.40) m/uL Hgb (11.4-16.0) gm/dL Hct (34.0-46.0) % MCHC (31.0-37.0) g/dL Lymphocytes # (1.0-4.8) k/uL APTT (22.0-30.0) sec VBG HCO3 (24-28) mmol/L Sodium (137-145) mmol/L Potassium (3.5-5.1) mmol/L Chloride (98-107) mmol/L Carbon Dioxide (22-30) mmol/L BUN (7-17) mg/dL Creatinine (0.52-1.04) mg/dL Glucose (74-99) mg/dL POC Glucose (mg/dL) 277 H 338 H (75-99) mg/dL Plasma Lactic Acid Celestino 2.5 H* (0.7-2.0) mmol/L Calcium (8.4-10.2) mg/dL Phosphorus (2.5-4.5) mg/dL Creatine Kinase (30-135) U/L Troponin I (0.000-0.034) ng/mL Total Protein (6.3-8.2) g/dL Albumin (3.5-5.0) g/dL Urine Glucose (UA) (Negative) Urine Ketones (Negative) 04/15/20 04/15/20 04/15/20 Range/Units 22:37 23:30 23:31 RBC (3.80-5.40) m/uL Hgb (11.4-16.0) gm/dL Hct (34.0-46.0) % MCHC (31.0-37.0) g/dL Lymphocytes # (1.0-4.8) k/uL APTT (22.0-30.0) sec VBG HCO3 (24-28) mmol/L Sodium (137-145) mmol/L Potassium (3.5-5.1) mmol/L Chloride (98-107) mmol/L Carbon Dioxide (22-30) mmol/L BUN (7-17) mg/dL Creatinine (0.52-1.04) mg/dL Glucose (74-99) mg/dL POC Glucose (mg/dL) 318 H 254 H (75-99) mg/dL Plasma Lactic Acid Celestino 2.8 H* (0.7-2.0) mmol/L Calcium (8.4-10.2) mg/dL Phosphorus (2.5-4.5) mg/dL Creatine Kinase (30-135) U/L Troponin I (0.000-0.034) ng/mL Total Protein (6.3-8.2) g/dL Albumin (3.5-5.0) g/dL Urine Glucose (UA) (Negative) Urine Ketones (Negative) 04/15/20 04/15/20 04/15/20 Range/Units 23:45 23:45 Unknown RBC (3.80-5.40) m/uL Hgb (11.4-16.0) gm/dL Hct (34.0-46.0) % MCHC (31.0-37.0) g/dL Lymphocytes # (1.0-4.8) k/uL APTT 51.1 H (22.0-30.0) sec VBG HCO3 21 L (24-28) mmol/L Sodium 136 L (137-145) mmol/L Potassium (3.5-5.1) mmol/L Chloride (98-107) mmol/L Carbon Dioxide (22-30) mmol/L BUN 30 H (7-17) mg/dL Creatinine (0.52-1.04) mg/dL Glucose 261 H (74-99) mg/dL POC Glucose (mg/dL) (75-99) mg/dL Plasma Lactic Acid Celestino (0.7-2.0) mmol/L Calcium 8.2 L (8.4-10.2) mg/dL Phosphorus (2.5-4.5) mg/dL Creatine Kinase (30-135) U/L Troponin I (0.000-0.034) ng/mL Total Protein (6.3-8.2) g/dL Albumin (3.5-5.0) g/dL Urine Glucose (UA) (Negative) Urine Ketones (Negative) 04/16/20 04/16/20 04/16/20 Range/Units 00:40 01:40 02:42 RBC (3.80-5.40) m/uL Hgb (11.4-16.0) gm/dL Hct (34.0-46.0) % MCHC (31.0-37.0) g/dL Lymphocytes # (1.0-4.8) k/uL APTT (22.0-30.0) sec VBG HCO3 (24-28) mmol/L Sodium (137-145) mmol/L Potassium (3.5-5.1) mmol/L Chloride (98-107) mmol/L Carbon Dioxide (22-30) mmol/L BUN (7-17) mg/dL Creatinine (0.52-1.04) mg/dL Glucose (74-99) mg/dL POC Glucose (mg/dL) 222 H 155 H 147 H (75-99) mg/dL Plasma Lactic Acid Celestino (0.7-2.0) mmol/L Calcium (8.4-10.2) mg/dL Phosphorus (2.5-4.5) mg/dL Creatine Kinase (30-135) U/L Troponin I (0.000-0.034) ng/mL Total Protein (6.3-8.2) g/dL Albumin (3.5-5.0) g/dL Urine Glucose (UA) (Negative) Urine Ketones (Negative) 04/16/20 04/16/20 04/16/20 Range/Units 03:39 03:39 03:39 RBC 3.33 L (3.80-5.40) m/uL Hgb 9.7 L D (11.4-16.0) gm/dL Hct 30.3 L (34.0-46.0) % MCHC (31.0-37.0) g/dL Lymphocytes # (1.0-4.8) k/uL APTT 45.7 H (22.0-30.0) sec VBG HCO3 (24-28) mmol/L Sodium (137-145) mmol/L Potassium (3.5-5.1) mmol/L Chloride 110 H (98-107) mmol/L Carbon Dioxide (22-30) mmol/L BUN 29 H (7-17) mg/dL Creatinine (0.52-1.04) mg/dL Glucose 108 H (74-99) mg/dL POC Glucose (mg/dL) (75-99) mg/dL Plasma Lactic Acid Celestino (0.7-2.0) mmol/L Calcium 8.3 L (8.4-10.2) mg/dL Phosphorus (2.5-4.5) mg/dL Creatine Kinase (30-135) U/L Troponin I (0.000-0.034) ng/mL Total Protein 4.8 L (6.3-8.2) g/dL Albumin 2.4 L (3.5-5.0) g/dL Urine Glucose (UA) (Negative) Urine Ketones (Negative) 04/16/20 04/16/20 04/16/20 Range/Units 04:34 05:32 06:27 RBC (3.80-5.40) m/uL Hgb (11.4-16.0) gm/dL Hct (34.0-46.0) % MCHC (31.0-37.0) g/dL Lymphocytes # (1.0-4.8) k/uL APTT (22.0-30.0) sec VBG HCO3 (24-28) mmol/L Sodium (137-145) mmol/L Potassium (3.5-5.1) mmol/L Chloride (98-107) mmol/L Carbon Dioxide (22-30) mmol/L BUN (7-17) mg/dL Creatinine (0.52-1.04) mg/dL Glucose (74-99) mg/dL POC Glucose (mg/dL) 105 H 133 H 146 H (75-99) mg/dL Plasma Lactic Acid Celestino (0.7-2.0) mmol/L Calcium (8.4-10.2) mg/dL Phosphorus (2.5-4.5) mg/dL Creatine Kinase (30-135) U/L Troponin I (0.000-0.034) ng/mL Total Protein (6.3-8.2) g/dL Albumin (3.5-5.0) g/dL Urine Glucose (UA) (Negative) Urine Ketones (Negative) 04/16/20 04/16/20 Range/Units 07:04 08:16 RBC (3.80-5.40) m/uL Hgb (11.4-16.0) gm/dL Hct (34.0-46.0) % MCHC (31.0-37.0) g/dL Lymphocytes # (1.0-4.8) k/uL APTT (22.0-30.0) sec VBG HCO3 (24-28) mmol/L Sodium (137-145) mmol/L Potassium (3.5-5.1) mmol/L Chloride (98-107) mmol/L Carbon Dioxide (22-30) mmol/L BUN (7-17) mg/dL Creatinine (0.52-1.04) mg/dL Glucose (74-99) mg/dL POC Glucose (mg/dL) 153 H 127 H (75-99) mg/dL Plasma Lactic Acid Celestino (0.7-2.0) mmol/L Calcium (8.4-10.2) mg/dL Phosphorus (2.5-4.5) mg/dL Creatine Kinase (30-135) U/L Troponin I (0.000-0.034) ng/mL Total Protein (6.3-8.2) g/dL Albumin (3.5-5.0) g/dL Urine Glucose (UA) (Negative) Urine Ketones (Negative) Assessment and Plan Plan: 1 DKA with mild anion gap metabolic acidosisMR recovered 2 diabetes mellitus type 2 with poor blood sugar control, and persistently elevated HbA1c. The patient is a very brittle diabetic.issues HbA1c has been quite elevated at 14. She has been fluctuating her blood sugar with episodes of hypotension and hypoglycemia. She has been very difficult to control. She has been seeing endocrinology on an outpatient basis. 3 coronary artery disease with previous coronary intervention and stenting of RCA and PDA. The patient has troponin leak without any acute ischemic changes or chest pain. EKG is consistent with old Q waves consistent with an old Q wave part.the troponin peaked at 0.2 and the patient's free of any chest pain. 4 previous history of DVT currently on no anticoagulants 5 anxiety/panic 6 COVID 19 infection in June 2019, recovered 7 coronary artery disease 8 hypertension 9 hyperlipidemia 10 ALLERGIC rhinitis 11 diabetic peripheral neuropathy 12 chronic back pain and sciatica 13 peripheral vascular disease 14 remote history of a pneumothorax requiring chest tube insertion Plan offered this patient carb consistent diet Discontinue the IV fluids Discontinue the insulin drip Put the patient on insulin NovoLog 6 units with meals in addition to a sliding scale coverage and were not going to commit any form of mcc or long acting medication for now. Stop the IV heparin Monitor blood sugar for another few hours Her outpatient medications have been resumed She wants to go home and I think it's reasonable as long as there are no major fluctuations in her blood sugars. resumed home medications including Coreg, aspirin, and Singulair and Crestor. losartan and hydralazine once BP is further improved transfer out of the ICU We'll continue to follow.
[2020-04-16 09:01] LABS: Glucose,Whole Blood 105 mg/dL (75-99)
--- NOTE | 2020-04-16 09:34 | P.CRDCN ---
History of Present Illness History of present illness: HISTORY OF PRESENTING ILLNESS This is a pleasant 70-year-old female past medical history significant for diabetes mellitus type 1, diabetic neuropathy, hypertension, paroxysmal atrial fibrillation, CAD status post PCI of the PDA in 2010, DVT, recent weight loss, CKD, anemia. She follows in the office with Dr Hernandez. We have been asked to see in consultation for elevated troponins. Patient has had multiple episodes of issues with her sugars with hyperglycemia and hypoglycemia. She apparently lost her recently and has been losing weight. She admits to multiple changes in her insulin regimen which has been frustrating for her. She admits she has been on insulin for proximally 40 years. She had an episode of becoming dizzy and lightheaded when she was getting up and feeling weak. Her blood sugar was checked which showed a sugar of 600 and therefore was brought into the emergency department. She was found to be in DKA and was placed on insulin drip and given IV fluids. She does admit that she has been having some lower extremity edema and was taken off of amlodipine with improvement in her lower extremity edema previously. She has had prior similar episodes in the past with varying degrees of troponin elevation up to 1.7. Her troponins on visitation were 0.12, 0.13, 0.24. She denies any chest pain, pressure, nausea, diaphoresis. She admits she did have a stent placed years ago and has been doing well since that time. She is asking to go home and does not want to stay in the hospital. Last echo from June/2019 showed normal ejection fraction 55-60% without significant valvular disease. DIAGNOSTICS EKG reveals normal sinus rhythm, poor R-wave progression, LVH with strain and T wave inversion in lead 3 and aVF similar to prior 01/04/2020. Chest xray cardiomegaly and chronic parenchymal changes without acute process. Current cardiac medications include aspirin 325 mg daily, Lipitor 20 mg daily, Coreg 12.5 mg twice a day, heparin drip, insulin drip, sodium chloride. REVIEW OF SYSTEMS At the time of my exam: CONSTITUTIONAL: Denies fever or chills. CARDIOVASCULAR: Denies chest pain, shortness of breath, orthopnea, PND or palpitations. RESPIRATORY: Denies cough. GASTROINTESTINAL: Denies abdominal pain, diarrhea, constipation, nausea or vom iting. MUSCULOSKELETAL: Denies myalgias. NEUROLOGIC: Denies numbness, tingling or weakness. ENDOCRINE: Denies fatigue, weight change, polydipsia or polyurina. GENITOURINARY: Denies burning, hematuria or urgency with micturation. HEMATOLOGIC: Denies history of anemia or bleeding. PHYSICAL EXAMINATION Blood pressure 108/61 heart rate 85 afebrile and maintaining oxygen saturation on room air. CONSTITUTIONAL: No apparent distress. HEENT: Head is normocephalic. Pupils are equal, round. Sclerae anicteric. Mucous membranes of the mouth are moist. No JVD. No carotid bruit. CHEST EXAMINATION: Lungs are clear to auscultation. No chest wall tenderness is noted on palpation or with deep breathing. HEART EXAMINATION: Regular rate and rhythm. S1, S2 heard. No murmurs, gallops or rub. ABDOMEN: Soft, nontender. Positive bowel sounds. EXTREMITIES: 2+ peripheral pulses, no lower extremity edema and no calf tenderness. NEUROLOGIC EXAMINATION: Patient is awake, alert and oriented x3. ASSESSMENT 1. Non-STEMI, likely type II mechanism secondary to DKA 2. DKA 3. Type 1 diabetes mellitus 4. History of coronary artery disease with prior PCI to RCA 5. Paroxysmal atrial fibrillation, currently normal sinus rhythm 6. Anemia 7. Hypertension 8. Hyperlipidemia 9. Acute kidney injury, improving PLAN Check 2-D echo however if patient is being discharged this may be done as an outpt. Elevated troponins appear most likely related to DKA with similar episodes in the past. Patient without any significant anginal type symptoms. Patient has been off of anticoagulation for her atrial fibrillation and we will defer to outpatient management. Blood pressure appears controlled. Continue supportive care for her DKA. If ejection fraction normal, patient may be discharged home from cardiology standpoint. Past Medical History Past Medical History: Coronary Artery Disease (CAD), Diabetes Mellitus, Deep Vein Thrombosis (DVT), GERD/Reflux, Hyperlipidemia, Hypertension, Osteoarthritis (OA), Vascular Disorder Additional Past Medical History / Comment(s): IDDM type I with diabetic neuropathy, narcolepsy, DVTs L lower extremity, vertigo occasionally, low back pian with bilateral sciatica, PAD, pneumothorax when pt was in her 20s with chest tube, constipation, bronchitis. The patient also had a infection will COVID 19 on 06/28/2019 from which she recovered. History of Any Multi-Drug Resistant Organisms: None Reported Past Surgical History: Appendectomy, Cholecystectomy, Heart Catheterization With Stent, Hysterectomy, Tubal Ligation Additional Past Surgical History / Comment(s): PCI/stent, ectopic pregnancies with eventual total hysterectomy, EGD, colonoscopy, L breast biopsy-benign, bilateral carpal tunnel release, bilateral eyes laser surgery/lens. Past Anesthesia/Blood Transfusion Reactions: Previous Problems w/ Anesthesia, Postoperative Nausea & Vomiting (PONV) Additional Past Anesthesia/Blood Transfusion Reaction / Comment(s): PT STATES HER AND HER FAMILY HAVE DIFFICULTY WAKING UP Date of Last Stent Placement:: Past Psychological History: No Psychological Hx Reported Smoking Status: Former smoker Past Alcohol Use History: None Reported Additional Past Alcohol Use History / Comment(s): STARTED SMOKING AT AGE 12, QUIT AT AGE 26 SMOKED 1 PPD Past Drug Use History: None Reported - Past Family History Mother Family Medical History: Hypertension, Seizure Disorder Additional Family Medical History / Comment(s): Mother at age 75 Father Family Medical History: Renal Disease Additional Family Medical History / Comment(s): Father at age 58 from acute renal failure and he was an alcoholic. Son(s) Family Medical History: No Reported History Additional Family Medical History / Comment(s): Patient has 2 sons with no major medical problems. Medications and Allergies Home Medications Medication Instructions Recorded Confirmed Type Montelukast Sodium [Singulair] 10 mg PO HS PRN 01/30/19 04/15/20 History Rosuvastatin [Crestor] 10 mg PO DAILY 01/30/19 04/15/20 History Insulin Aspart [NovoLOG Flexpen] See Protocol SQ AC-TID 06/26/19 04/15/20 History Aspirin 81 mg PO DAILY chew 06/30/19 04/15/20 Rx Cholecalciferol [Vitamin D3 (25 25 mcg PO DAILY 01/04/20 04/15/20 History Mcg = 1000 Iu)] Losartan Potassium [Cozaar] 50 mg PO BID 01/04/20 04/15/20 History Carvedilol [Coreg] 12.5 mg PO BID 04/15/20 04/15/20 History Insulin Aspart [NovoLOG Flexpen] 6 unit SQ AC-TID 04/15/20 04/15/20 History Insulin Glargine,Hum.rec.anlog See Protocol SQ HS 04/15/20 04/15/20 History [Todavid Read] hydrALAZINE HCL [Apresoline] 50 mg PO TID 04/15/20 04/15/20 History Allergies Allergy/AdvReac Type Severity Reaction Status Date / Time morphine AdvReac PASSES OUT Verified 04/15/20 15:14 nitroglycerin AdvReac PASSES OUT Verified 04/15/20 15:14 Sulfa (Sulfonamide AdvReac Itching Verified 04/15/20 15:14 Antibiotics) Physical Exam Vitals: Vital Signs Temp Pulse Resp BP Pulse Ox 04/16/20 07:00 85 15 108/61 99 04/16/20 06:00 67 18 98/53 99 04/16/20 05:00 64 18 98/47 100 04/16/20 04:00 97.7 F 69 12 103/61 100 04/16/20 03:00 66 14 90/54 99 04/16/20 02:00 68 14 114/66 100 04/16/20 01:00 69 14 101/50 100 04/16/20 00:00 97.8 F 67 13 107/49 100 04/15/20 23:00 68 12 97/68 99 04/15/20 22:35 70 10 L 97/68 100 04/15/20 20:00 98.6 F 76 121/67 100 04/15/20 19:47 77 16 121/67 100 04/15/20 19:00 77 18 143/69 99 04/15/20 18:00 79 18 122/63 99 04/15/20 17:00 73 18 131/64 99 04/15/20 16:00 75 18 133/70 99 04/15/20 15:00 73 18 125/70 99 04/15/20 14:06 76 18 137/74 95 04/15/20 14:00 141/71 04/15/20 13:06 18 04/15/20 13:00 140/73 100 04/15/20 12:06 18 04/15/20 12:03 95 04/15/20 11:58 97.7 F 76 18 139/70 99 Intake and Output 04/15/20 04/16/20 04/16/20 22:59 06:59 14:59 Intake Total 717.761 2311.734 154.833 Output Total 500 Balance 98.674 1228.734 154.833 Intake: IV 550 1200 150 D5-0.45% NaCl with KCl 150 1200 150 20Meq/l 1,000 ml @ 150 mls/hr IV .Q6H40M [facility] Rx# :[id number] Sodium Chloride 0.9% 1, 400 000 ml @ 200 mls/hr IV . Q5H [facility] Rx#:[id number] Intake, IV Titration 48.674 28.734 4.833 Amount Insulin Regular 100 unit 48.674 28.734 4.833 In Sodium Chloride 0.9% 100 ml @ 0.1 UNITS/KG/HR 6.551 mls/hr IV .[id number] [facility] Rx#:[id number] Output: Urine 500 Other: Weight 66.9 kg 69.1 kg Results 04/16/20 03:39 04/16/20 03:39 Cardiac Enzymes 04/15/20 04/15/20 04/15/20 Range/Units 12:53 12:53 16:47 AST 32 (14-36) U/L Troponin I 0.128 H* 0.138 H* (0.000-0.034) ng/mL 04/15/20 04/16/20 Range/Units 20:01 03:39 AST 22 (14-36) U/L Troponin I 0.242 H* (0.000-0.034) ng/mL Coagulation 04/15/20 04/15/20 04/16/20 Range/Units 12:53 23:45 03:39 PT 9.9 (9.0-12.0) sec APTT 18.7 L 51.1 H 45.7 H (22.0-30.0) sec Lipids 04/16/20 Range/Units 03:39 Triglycerides 35 (<150) mg/dL Cholesterol 143 (<200) mg/dL HDL Cholesterol 58 (40-60) mg/dL CBC 04/15/20 04/16/20 Range/Units 12:53 03:39 WBC 5.9 8.8 (3.8-10.6) k/uL RBC 3.83 3.33 L (3.80-5.40) m/uL Hgb 11.2 L 9.7 L D (11.4-16.0) gm/dL Hct 36.6 30.3 L (34.0-46.0) % Plt Count 239 208 (150-450) k/uL Comprehensive Metabolic Panel 04/15/20 04/15/20 04/15/20 Range/Units 12:53 16:47 20:01 Sodium 132 L 140 136 L (137-145) mmol/L Potassium 4.2 2.1 L* 3.9 (3.5-5.1) mmol/L Chloride 95 L 119 H 103 (98-107) mmol/L Carbon Dioxide 14 L 14 L 25 (22-30) mmol/L BUN 33 H 19 H 30 H (7-17) mg/dL Creatinine 1.11 H 0.58 1.00 (0.52-1.04) mg/dL Glucose 758 H* 284 H 290 H (74-99) mg/dL Calcium 8.7 (8.4-10.2) mg/dL AST 32 (14-36) U/L ALT 26 (4-34) U/L Alkaline Phosphatase 97 (38-126) U/L Total Protein 5.7 L (6.3-8.2) g/dL Albumin 3.3 L (3.5-5.0) g/dL 04/15/20 04/16/20 Range/Units 23:45 03:39 Sodium 136 L 139 (137-145) mmol/L Potassium 3.9 4.4 (3.5-5.1) mmol/L Chloride 105 110 H (98-107) mmol/L Carbon Dioxide 23 26 (22-30) mmol/L BUN 30 H 29 H (7-17) mg/dL Creatinine 1.00 1.04 (0.52-1.04) mg/dL Glucose 261 H 108 H (74-99) mg/dL Calcium 8.2 L 8.3 L (8.4-10.2) mg/dL AST 22 (14-36) U/L ALT 20 (4-34) U/L Alkaline Phosphatase 66 (38-126) U/L Total Protein 4.8 L (6.3-8.2) g/dL Albumin 2.4 L (3.5-5.0) g/dL Current Medications Generic Name Dose Route Start Last Admin Trade Name Freq PRN Reason Stop Dose Admin Aspirin 325 mg 04/16/20 09:00 Aspirin 325 Mg Tab PO DAILY [facility] Atorvastatin Calcium 20 mg 04/16/20 09:00 Atorvastatin 20 Mg Tab PO DAILY [facility] Carvedilol 12.5 mg 04/15/20 17:30 04/15/20 18:49 Carvedilol 12.5 Mg Tab PO 12.5 mg AC-BID [facility] Administration Cholecalciferol 25 mcg 04/16/20 09:00 Cholecalciferol 25 Mcg (1000 Iu) Tablet PO DAILY [facility] Insulin Human Regular 100 unit 101 mls @ 6.551 mls/hr 04/15/20 14:45 04/16/20 08:18 / Sodium Chloride IV 0.02 units/kg/hr .[id number] [facility] 1.5 mls/hr Titration Protocol 0.1 UNITS/KG/HR Sodium Chloride 1,000 mls @ 200 mls/hr 04/15/20 14:45 04/16/20 06:34 Saline 0.9% IV Not Given .Q5H [facility] Heparin Sodium/Sodium Chloride 250 mls @ 7.784 mls/hr 04/15/20 15:00 04/15/20 15:42 25,000 unit/ Sodium Chloride IV 12 units/kg/hr .Q24H [facility] 7.784 mls/hr Administration Protocol 12 UNITS/KG/HR Potassium Chloride/Dextrose/Sod Cl 1,000 mls @ 150 mls/hr 04/15/20 20:00 04/16/20 04:53 D5%-1/2ns-Kcl 20 Meq/L Iv Solution IV 150 mls/hr .Q6H40M [facility] Administration Miscellaneous Information 1 each 04/15/20 14:40 Magnesium Replacement Protocol 1 Each Misc MISCELLANE DAILY PRN Per Protocol Protocol Miscellaneous Information 1 each 04/15/20 14:40 Potassium Replacement Protocol 1 Each Misc MISCELLANE DAILY PRN Per Protocol Protocol Montelukast Sodium 10 mg 04/15/20 15:35 Montelukast 10 Mg Tab PO HS PRN Allergy Symptoms Nitroglycerin 0.4 mg 04/15/20 14:50 Nitroglycerin Sl Tabs 0.4 Mg Tab SUBLINGUAL Q5M PRN Chest Pain Intake and Output 04/15/20 04/16/20 04/16/20 22:59 06:59 14:59 Intake Total 010.994 7847.734 154.833 Output Total 500 Balance 98.674 1228.734 154.833 Intake: IV 550 1200 150 D5-0.45% NaCl with KCl 150 1200 150 20Meq/l 1,000 ml @ 150 mls/hr IV .Q6H40M [facility] Rx# :[id number] Sodium Chloride 0.9% 1, 400 000 ml @ 200 mls/hr IV . Q5H [facility] Rx#:[id number] Intake, IV Titration 48.674 28.734 4.833 Amount Insulin Regular 100 unit 48.674 28.734 4.833 In Sodium Chloride 0.9% 100 ml @ 0.1 UNITS/KG/HR 6.551 mls/hr IV .[id number] [facility] Rx#:[id number] Output: Urine 500 Other: Weight 66.9 kg 69.1 kg 04/16/20 03:39 04/16/20 03:39
[2020-04-16] MEDS: MAGNESIUM SULFATE-D5W PMX 1 GM in DEXTROSE/WATER 1 100ML.BAG IVPB SCH ×2 (09:50→11:38)
[2020-04-16] MEDS: ASPIRIN 325 MG TAB PO SCH (09:50)
[2020-04-16] MEDS: CHOLECALCIFEROL 25 MCG (1000 IU) TABLET PO SCH (09:50)
[2020-04-16] MEDS: carvediloL 12.5 MG TAB PO SCH ×2 (09:50→16:59)
[2020-04-16] MEDS: ATORVASTATIN 20 MG TAB PO SCH (09:50)
[2020-04-16 10:02] LABS: Glucose,Whole Blood 117 mg/dL (75-99)
--- NOTE | 2020-04-16 10:20 | P.PN ---
Subjective Progress Note Date: 04/16/20 This is a 70-year-old -[place] female one of my patient with a previous medical history significant for diabetes mellitus type 1 with diabetic polyneuropathy, hypertension and hypertensive cardiovascular disease with left ventricular hypertrophy, CAD status post PCI of the PDA off the RCA back in 2010, history of DVT in lower extremity, history of narcolepsy, significant weight loss over the last few months since her with metastatic lung cancer, and she had lost quite a bit of weight and not controlling her diabetes very well her hemoglobin A1c is around 14%, patient developed to have a significant dizziness and lightheadedness today in the morning while she was getting up from but she could not lift her head up she waited until her grandson came in and she asked for help apparently her blood glucose was checked he was about 600, she was extremely fatigued and tired she was nauseated with poor appetite, she had no diarrhea, she had no chest pain or shortness breath, EMS was called and the patient was transferred to [facility] for evaluation and treatment, 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 04/16: Patient is laying down in bed in no apparent distress, she is taken off heparin drip today, she was noted by cardiology was recommended for the patient to go for echocardiogram, she was seen by ICU, she was taken off insulin drip she was started on Levemir 7 units subcu Saturday along with a sliding scale insulin, she would be transferred out of the ICU for a stepdown unit in the next few hours, hopefully she will be able to get out of the hospital in the next 24 hours. Objective - Vital Signs Vital signs: Vital Signs Temp 97.7 F 04/16/20 04:00 Pulse 69 04/16/20 04:00 Resp 12 04/16/20 04:00 BP 103/61 04/16/20 04:00 Pulse Ox 100 04/16/20 04:00 Intake & Output 04/15/20 04/15/20 04/16/20 06:59 18:59 06:59 Intake Total 11.774 1514.134 Output Total 300 500 Balance -913.919 1359.134 Weight 66.9 kg Intake: IV 1450 D5-0.45% NaCl with KCl 1050 20Meq/l 1,000 ml @ 150 mls/hr IV .[id number] [facility] Rx# :[id number] Sodium Chloride 0.9% 1, 400 000 ml @ 200 mls/hr IV . Q5H [facility] Rx#:[id number] Intake, IV Titration 11.774 64.134 Amount Insulin Regular 100 unit 11.774 64.134 In Sodium Chloride 0.9% 100 ml @ 0.1 UNITS/KG/HR 6.551 mls/hr IV .[id number] [facility] Rx#:[id number] Output: Urine 300 500 Straight 300 - Exam Review of Systems Constitutional: Reports anorexia, Reports fatigue, Reports weakness, Reports weight loss Eyes: bilateral blurred vision, bilateral decreased vision, denies bulging eye Ears: deny: decreased hearing Ears, nose, mouth and throat: Denies dysphagia, Denies neck lump, Denies sore throat Cardiovascular: Reports decreased exercise tolerance, Reports leg edema, Reports shortness of breath, Denies chest pain, Denies lightheadedness, Denies syncope Respiratory: Denies congestion, Denies cough with sputum, Denies home oxygen, Denies sleep apnea, Denies snoring, Denies wheezing Gastrointestinal: Reports loss of appetite, Reports nausea, Denies abdominal pain, Denies bloating, Denies BRBPR, Denies diarrhea, Denies vomiting Genitourinary: Denies dysuria, Denies nocturia Menstruation: Reports postmenopausal Musculoskeletal: Reports atrophy, Reports myalgias Musculoskeletal: bilateral: ankle swelling, foot swelling, absent: ankle pain, ankle stiffness, elbow pain, elbow stiffness, elbow swelling, foot pain, foot stiffness, hand pain, hand stiffness, hand swelling, hip pain, hip stiffness, hip swelling, knee pain, knee stiffness, knee swelling, shoulder pain, shoulder stiffness, shoulder swelling, wrist pain, wrist stiffness, wrist swelling Integumentary: Denies pruritus, Denies rash Neurological: Reports memory loss, Reports sensory deficit, Reports weakness Psychiatric: Reports anxiety, Reports depression, Reports hypersomnia, Reports memory loss, Denies sadness/tearfulness, Denies sleep disturbances, Denies suicidal ideation Endocrine: Reports fatigue, Reports nocturia, Reports polydipsia, Reports polyuria, Reports weight change Physical examination: HEENT: Head is atraumatic, normocephalic, pupils were equal round reactive to light and accommodation, extraocular muscle movement were intact, mucous membranes of the mouth are somewhat dry Neck: Supple no JVP. Chest: Clear to auscultation bilaterally there is no crackles, no wheezes, no chest wall tenderness, no intercostal retractions. Heart: First heart sound is depressed, second heart sound is normal, there is systolic ejection murmur 2/6 located in the left sternal border. Abdomen: Soft, nontender, nondistended, positive bowel sounds. Extremities: There is +1 edema, no calf tenderness, dorsalis pedis +1 gisella aterally. Neurologic examination: Patient is awake alert and oriented 3, cranial nerves III-12 appear grossly intact, muscle power 4 out of 5 in upper and lower extremities bilaterally, deep tendon reflexes were normal. - Labs CBC & Chem 7: 04/16/20 03:39 04/16/20 03:39 Labs: Abnormal Lab Results - Last 24 Hours (Table) 04/15/20 04/15/20 04/15/20 Range/Units 12:53 12:53 12:53 RBC (3.80-5.40) m/uL Hgb 11.2 L (11.4-16.0) gm/dL Hct (34.0-46.0) % MCHC 30.7 L (31.0-37.0) g/dL Lymphocytes # 0.6 L (1.0-4.8) k/uL APTT 18.7 L (22.0-30.0) sec VBG HCO3 (24-28) mmol/L Sodium 132 L (137-145) mmol/L Potassium (3.5-5.1) mmol/L Chloride 95 L (98-107) mmol/L Carbon Dioxide 14 L (22-30) mmol/L BUN 33 H (7-17) mg/dL Creatinine 1.11 H (0.52-1.04) mg/dL Glucose 758 H* (74-99) mg/dL POC Glucose (mg/dL) (75-99) mg/dL Plasma Lactic Acid Celestino (0.7-2.0) mmol/L Calcium (8.4-10.2) mg/dL Phosphorus (2.5-4.5) mg/dL Creatine Kinase 177 H (30-135) U/L Troponin I (0.000-0.034) ng/mL Total Protein 5.7 L (6.3-8.2) g/dL Albumin 3.3 L (3.5-5.0) g/dL Urine Glucose (UA) (Negative) Urine Ketones (Negative) 04/15/20 04/15/20 04/15/20 Range/Units 12:53 12:53 13:00 RBC (3.80-5.40) m/uL Hgb (11.4-16.0) gm/dL Hct (34.0-46.0) % MCHC (31.0-37.0) g/dL Lymphocytes # (1.0-4.8) k/uL APTT (22.0-30.0) sec VBG HCO3 (24-28) mmol/L Sodium (137-145) mmol/L Potassium (3.5-5.1) mmol/L Chloride (98-107) mmol/L Carbon Dioxide (22-30) mmol/L BUN (7-17) mg/dL Creatinine (0.52-1.04) mg/dL Glucose (74-99) mg/dL POC Glucose (mg/dL) (75-99) mg/dL Plasma Lactic Acid Celestino 2.6 H* (0.7-2.0) mmol/L Calcium (8.4-10.2) mg/dL Phosphorus (2.5-4.5) mg/dL Creatine Kinase (30-135) U/L Troponin I 0.128 H* (0.000-0.034) ng/mL Total Protein (6.3-8.2) g/dL Albumin (3.5-5.0) g/dL Urine Glucose (UA) 4+ H (Negative) Urine Ketones 2+ H (Negative) 04/15/20 04/15/20 04/15/20 Range/Units 16:03 16:47 16:47 RBC (3.80-5.40) m/uL Hgb (11.4-16.0) gm/dL Hct (34.0-46.0) % MCHC (31.0-37.0) g/dL Lymphocytes # (1.0-4.8) k/uL APTT (22.0-30.0) sec VBG HCO3 (24-28) mmol/L Sodium (137-145) mmol/L Potassium 2.1 L* (3.5-5.1) mmol/L Chloride 119 H (98-107) mmol/L Carbon Dioxide 14 L (22-30) mmol/L BUN 19 H (7-17) mg/dL Creatinine (0.52-1.04) mg/dL Glucose 284 H (74-99) mg/dL POC Glucose (mg/dL) 436 H (75-99) mg/dL Plasma Lactic Acid Celestino (0.7-2.0) mmol/L Calcium (8.4-10.2) mg/dL Phosphorus 1.7 L (2.5-4.5) mg/dL Creatine Kinase (30-135) U/L Troponin I 0.138 H* (0.000-0.034) ng/mL Total Protein (6.3-8.2) g/dL Albumin (3.5-5.0) g/dL Urine Glucose (UA) (Negative) Urine Ketones (Negative) 04/15/20 04/15/20 04/15/20 Range/Units 16:47 17:07 18:28 RBC (3.80-5.40) m/uL Hgb (11.4-16.0) gm/dL Hct (34.0-46.0) % MCHC (31.0-37.0) g/dL Lymphocytes # (1.0-4.8) k/uL APTT (22.0-30.0) sec VBG HCO3 (24-28) mmol/L Sodium (137-145) mmol/L Potassium (3.5-5.1) mmol/L Chloride (98-107) mmol/L Carbon Dioxide (22-30) mmol/L BUN (7-17) mg/dL Creatinine (0.52-1.04) mg/dL Glucose (74-99) mg/dL POC Glucose (mg/dL) 415 H 307 H (75-99) mg/dL Plasma Lactic Acid Celestino 2.3 H* (0.7-2.0) mmol/L Calcium (8.4-10.2) mg/dL Phosphorus (2.5-4.5) mg/dL Creatine Kinase (30-135) U/L Troponin I (0.000-0.034) ng/mL Total Protein (6.3-8.2) g/dL Albumin (3.5-5.0) g/dL Urine Glucose (UA) (Negative) Urine Ketones (Negative) 04/15/20 04/15/20 04/15/20 Range/Units 19:18 20:01 20:01 RBC (3.80-5.40) m/uL Hgb (11.4-16.0) gm/dL Hct (34.0-46.0) % MCHC (31.0-37.0) g/dL Lymphocytes # (1.0-4.8) k/uL APTT (22.0-30.0) sec VBG HCO3 (24-28) mmol/L Sodium 136 L (137-145) mmol/L Potassium (3.5-5.1) mmol/L Chloride (98-107) mmol/L Carbon Dioxide (22-30) mmol/L BUN 30 H (7-17) mg/dL Creatinine (0.52-1.04) mg/dL Glucose 290 H (74-99) mg/dL POC Glucose (mg/dL) 281 H (75-99) mg/dL Plasma Lactic Acid Celestino (0.7-2.0) mmol/L Calcium (8.4-10.2) mg/dL Phosphorus (2.5-4.5) mg/dL Creatine Kinase (30-135) U/L Troponin I 0.242 H* (0.000-0.034) ng/mL Total Protein (6.3-8.2) g/dL Albumin (3.5-5.0) g/dL Urine Glucose (UA) (Negative) Urine Ketones (Negative) 04/15/20 04/15/20 04/15/20 Range/Units 20:01 20:31 21:30 RBC (3.80-5.40) m/uL Hgb (11.4-16.0) gm/dL Hct (34.0-46.0) % MCHC (31.0-37.0) g/dL Lymphocytes # (1.0-4.8) k/uL APTT (22.0-30.0) sec VBG HCO3 (24-28) mmol/L Sodium (137-145) mmol/L Potassium (3.5-5.1) mmol/L Chloride (98-107) mmol/L Carbon Dioxide (22-30) mmol/L BUN (7-17) mg/dL Creatinine (0.52-1.04) mg/dL Glucose (74-99) mg/dL POC Glucose (mg/dL) 277 H 338 H (75-99) mg/dL Plasma Lactic Acid Celestino 2.5 H* (0.7-2.0) mmol/L Calcium (8.4-10.2) mg/dL Phosphorus (2.5-4.5) mg/dL Creatine Kinase (30-135) U/L Troponin I (0.000-0.034) ng/mL Total Protein (6.3-8.2) g/dL Albumin (3.5-5.0) g/dL Urine Glucose (UA) (Negative) Urine Ketones (Negative) 04/15/20 04/15/20 04/15/20 Range/Units 22:37 23:30 23:31 RBC (3.80-5.40) m/uL Hgb (11.4-16.0) gm/dL Hct (34.0-46.0) % MCHC (31.0-37.0) g/dL Lymphocytes # (1.0-4.8) k/uL APTT (22.0-30.0) sec VBG HCO3 (24-28) mmol/L Sodium (137-145) mmol/L Potassium (3.5-5.1) mmol/L Chloride (98-107) mmol/L Carbon Dioxide (22-30) mmol/L BUN (7-17) mg/dL Creatinine (0.52-1.04) mg/dL Glucose (74-99) mg/dL POC Glucose (mg/dL) 318 H 254 H (75-99) mg/dL Plasma Lactic Acid Celestino 2.8 H* (0.7-2.0) mmol/L Calcium (8.4-10.2) mg/dL Phosphorus (2.5-4.5) mg/dL Creatine Kinase (30-135) U/L Troponin I (0.000-0.034) ng/mL Total Protein (6.3-8.2) g/dL Albumin (3.5-5.0) g/dL Urine Glucose (UA) (Negative) Urine Ketones (Negative) 04/15/20 04/15/20 04/15/20 Range/Units 23:45 23:45 Unknown RBC (3.80-5.40) m/uL Hgb (11.4-16.0) gm/dL Hct (34.0-46.0) % MCHC (31.0-37.0) g/dL Lymphocytes # (1.0-4.8) k/uL APTT 51.1 H (22.0-30.0) sec VBG HCO3 21 L (24-28) mmol/L Sodium 136 L (137-145) mmol/L Potassium (3.5-5.1) mmol/L Chloride (98-107) mmol/L Carbon Dioxide (22-30) mmol/L BUN 30 H (7-17) mg/dL Creatinine (0.52-1.04) mg/dL Glucose 261 H (74-99) mg/dL POC Glucose (mg/dL) (75-99) mg/dL Plasma Lactic Acid Celestino (0.7-2.0) mmol/L Calcium 8.2 L (8.4-10.2) mg/dL Phosphorus (2.5-4.5) mg/dL Creatine Kinase (30-135) U/L Troponin I (0.000-0.034) ng/mL Total Protein (6.3-8.2) g/dL Albumin (3.5-5.0) g/dL Urine Glucose (UA) (Negative) Urine Ketones (Negative) 04/16/20 04/16/20 04/16/20 Range/Units 00:40 01:40 02:42 RBC (3.80-5.40) m/uL Hgb (11.4-16.0) gm/dL Hct (34.0-46.0) % MCHC (31.0-37.0) g/dL Lymphocytes # (1.0-4.8) k/uL APTT (22.0-30.0) sec VBG HCO3 (24-28) mmol/L Sodium (137-145) mmol/L Potassium (3.5-5.1) mmol/L Chloride (98-107) mmol/L Carbon Dioxide (22-30) mmol/L BUN (7-17) mg/dL Creatinine (0.52-1.04) mg/dL Glucose (74-99) mg/dL POC Glucose (mg/dL) 222 H 155 H 147 H (75-99) mg/dL Plasma Lactic Acid Celestino (0.7-2.0) mmol/L Calcium (8.4-10.2) mg/dL Phosphorus (2.5-4.5) mg/dL Creatine Kinase (30-135) U/L Troponin I (0.000-0.034) ng/mL Total Protein (6.3-8.2) g/dL Albumin (3.5-5.0) g/dL Urine Glucose (UA) (Negative) Urine Ketones (Negative) 04/16/20 04/16/20 04/16/20 Range/Units 03:39 03:39 04:34 RBC 3.33 L (3.80-5.40) m/uL Hgb 9.7 L D (11.4-16.0) gm/dL Hct 30.3 L (34.0-46.0) % MCHC (31.0-37.0) g/dL Lymphocytes # (1.0-4.8) k/uL APTT 45.7 H (22.0-30.0) sec VBG HCO3 (24-28) mmol/L Sodium (137-145) mmol/L Potassium (3.5-5.1) mmol/L Chloride (98-107) mmol/L Carbon Dioxide (22-30) mmol/L BUN (7-17) mg/dL Creatinine (0.52-1.04) mg/dL Glucose (74-99) mg/dL POC Glucose (mg/dL) 105 H (75-99) mg/dL Plasma Lactic Acid Celestino (0.7-2.0) mmol/L Calcium (8.4-10.2) mg/dL Phosphorus (2.5-4.5) mg/dL Creatine Kinase (30-135) U/L Troponin I (0.000-0.034) ng/mL Total Protein (6.3-8.2) g/dL Albumin (3.5-5.0) g/dL Urine Glucose (UA) (Negative) Urine Ketones (Negative) Assessment and Plan Assessment: Assessment and plan: 1. Acute kidney injury due to acute tubular necrosis secondary to poor oral intake of fluid . Resolved. Discontinue IV fluid. 2. Diabetes mellitus type 2 with severe hyperglycemia. Currently DKA. Resolved. Patient was taken off her insulin drip she was started on Levemir 7 units subcu Saturday, along with a sliding scale insulin. 3. Hyponatremia secondary to hyperglycemia and poor oral intake. Resolved . 4. CAD post-PCI. Continue patient on carvedilol 12.5 mg orally twice every day, aspirin 325 mg orally once a day and atorvastatin 20 mg orally once every day. Echocardiogram was ordered. 5. Hypertension and hypertensive cardiovascular disease. Continue carvedilol 12.5 mg orally twice every day, hold losartan and hydralazine due to hy potension. 6. Hyperlipidemia. Continue patient on atorvastatin 20 mg orally once every day. 7. ALLERGIC rhinitis. Continue singular 10 mg at bedtime. 8. History of narcolepsy. Patient never was treated for that, she declined taking medications due to side effects. 9. Non-ST elevation NC. , off heparin drip continue carvedilol 12.5 mg orally twice every day, aspirin 325 mg once every day, atorvastatin 20 mg once every day, echocardiogram was obtained. 10. DVT prophylaxis. We start heparin 5000 subcutaneous every 8 hours. 11. GI prophylaxis. Continue patient on Protonix 40 mg orally once every day. 12. Prognosis is guarded. 13. Home tomorrow morning.
[2020-04-16 11:31] LABS: Glucose,Whole Blood 204 mg/dL (75-99)
[2020-04-16] MEDS: INSULIN ASPART (NovoLOG) 100 UNIT/ML VIAL SQ SCH ×5 (12:02→20:16)
[2020-04-16] MEDS: INSULIN DETEMIR (LEVEMIR) 100 UNIT/ML SYR SQ SCH (12:05)
[2020-04-16 12:13] VITALS: BMI 23.1
[2020-04-16 16:41] LABS: Glucose,Whole Blood 158 mg/dL (75-99)
[2020-04-16] MEDS: HEPARIN SODIUM,PORCINE 5,000 UNIT/ML 1 ML VIAL SQ SCH ×2 (16:41→23:20)
--- NOTE | 2020-04-16 17:31 | ECHOF ---
Referral Reason:re: LV function MEASUREMENTS -------- HEIGHT: 172.7 cm WEIGHT: 62.1 kg BP: IVSd: 1.2 cm (0.6 - 1.1) LVIDd: 4.0 cm (3.9 - 5.3) LVPWd: 1.3 cm (0.6 - 1.1) IVSs: 1.5 cm LVIDs: 2.8 cm LVPWs: 1.8 cm FINDINGS -------- Limited Study The left ventricular size is normal. There is mild concentric left ventricular hypertrophy. Overa ll left ventricular systolic function is low-normal with, an EF between 50 - 55 %. There is no pericardial effusion. CONCLUSIONS -------- 1. Limited Study 2. The left ventricular size is normal. 3. There is mild concentric left ventricular hypertrophy. 4. Overall left ventricular systolic function is low-normal with, an EF between 50 - 55 %. 5. There is no pericardial effusion. [employer] SECURITY CONSULTANT: Kizzy Urias RD
[2020-04-16 20:20] LABS: Glucose,Whole Blood 75 mg/dL (75-99)
[2020-04-16 20:50] LABS: Albumin 2.7 g/dL (3.5-5.0); Calcium 8.5 mg/dL (8.4-10.2); Phosphorus 2.1 mg/dL (2.5-4.5); Potassium 4.5 mmol/L (3.5-5.1); Total Bilirubin 0.3 mg/dL (0.2-1.3); Total Protein 5.2 g/dL (6.3-8.2)
[2020-04-16] MEDS ORDERED: BENZOCAINE/MENTHOL LOZENG 1 EACH LOZENGE MUCOUS MEM PRN (23:09)
[2020-04-17 04:20] LABS: Basophils % (A) 1 %; Eosinophils # (A) 0.1 k/uL (0-0.7); Eosinophils % (A) 3 %; HGB 10.1 gm/dL (11.4-16.0); Lymphocytes # (A) 1.5 k/uL (1.0-4.8); Lymphocytes % (A) 29 %; MCH 29.1 pg (25.0-35.0); MCHC 31.6 g/dL (31.0-37.0); Mean Platelet Volume 8.7; Monocytes # (A) 0.3 k/uL (0-1.0); Monocytes % (A) 6 %; Neutrophils # (A) 3.1 k/uL (1.3-7.7); Neutrophils % (A) 59 %; Platelet Count 225 k/uL (150-450); RBC 3.48 m/uL (3.80-5.40); RDW 14.8 % (11.5-15.5); WBC 5.2 k/uL (3.8-10.6)
[2020-04-17 04:21] LABS: Albumin 2.6 g/dL (3.5-5.0); Calcium 8.5 mg/dL (8.4-10.2); Magnesium 2.3 mg/dL (1.6-2.3); Potassium 4.8 mmol/L (3.5-5.1); Total Bilirubin 0.4 mg/dL (0.2-1.3)
[2020-04-17 06:34] LABS: Glucose,Whole Blood 187 mg/dL (75-99)
[2020-04-17] MEDS: carvediloL 12.5 MG TAB PO SCH (07:01)
[2020-04-17] MEDS: INSULIN ASPART (NovoLOG) 100 UNIT/ML VIAL SQ SCH ×2 (07:02→07:04)
[2020-04-17] MEDS: INSULIN DETEMIR (LEVEMIR) 100 UNIT/ML SYR SQ SCH (07:03)
[2020-04-17] MEDS: HEPARIN SODIUM,PORCINE 5,000 UNIT/ML 1 ML VIAL SQ SCH (07:41)
--- NOTE | 2020-04-17 08:18 | P.PN ---
Subjective Progress Note Date: 04/17/20 There is a 70-year-old female patient, known history of diabetes mellitus insul in-dependent with a very brittle blood sugar, 40 controlled on outpatient basis was being managed by her primary care physician and endocrinology. Recently the patient had a change in her diabetic medication regimen and the patient developed worsening hyperglycemia. She claims that her blood sugars already run very high and the blood sugars came up to the 700s range was feeling quite weak and lethargic and tired and for that reason she came into the emergency department. Note that in ED, the patient's blood work showed a blood sugar of 758, she had anion gap of 23 with a serum bicarb of 14, she had lactic acid of 2.6 and the troponin was 0.128 and she had a CPK of 177. The proBNP level was 1660 and the liver function tests were essentially within normal limits. The patient had a normal coagulation profile. UA showed +4 glucose, +2 ketones and her serum was positive for acetone. She has no chest pain. EKG was within normal limits without any acute ischemic changes. The patient had old septal infarct with Q waves over the anterior leads. The patient was free of any chest pain. No nausea. No vomiting. No shortness of breath. No fever. No chills. The chest x-ray showed some cardiomegaly with chronic changes without any acute process. She was given IV fluids at the rate of 200 mL of normal saline and she received a bolus of 1 L of normal saline and following that she was placed on a maintenance. She will be also started on a insulin drip per protocol to manage her DKA and the patient will be transferred to the intensive care unit. She was also started on a heparin drip per emergency. She is also on aspirin. No hypotension. No altered mentation. She is very much appropriate at this point in time. Note that the patient is known to have coronary artery disease and she has undergone previous PCI to PDA and RCA in addition to previous history of DVT of the lower extremity, hypertension, poor blood sugar control along with impaired neuropathy related to diabetes mellitus, narcolepsy, chronic back pain, peripheral vascular disease, hypertension, hyperlipidemia and chronic debility secondary to above-mentioned comorbidities. Based on our records, the patient's HbA1c has been consistently elevated above 12 and the patient's blood sugars been under poor control. on 04/16/2020, the patient is being seen in follow-up in the intensive care unit. Her blood sugars this morning has been under much better control and the blood sugars down to 108. The patient is on insulin drip at 3 units an hour. Her labs from today shows an anion gap of 3 and the patient's serum bicarb is up to 26. She had an easy and fast closure of the anion gap metabolic acidosis. Her troponins were also monitored and the patient had a peak troponin of 0.2. Nevertheless, she remains off free of any chest pain and the patient is still on IV Heparinshe is hemodynamically stable. No pressors. No cardiac arrhythmias. No nausea. No vomiting. No diarrhea. No abdominal pain. No chest pain. 04/17/2020, the patient is doing well. Anion gap has been closed. She was given 6 units of NovoLog with meals along with a sliding scale coverage. The primary care team also added Levemir insulin 7 units daily. Blood sugars are running adequately lower and this morning is at 187. Anion gap is 1, serum bicarbonate 28, sodium level is at 133 and the patient has no specific complaints. No chest pain. Echocardiogram was performed by cardiology and the findings were essentially negative and the patient has a preserved LV function with an estimated ejection fraction of 50-55%. No valvular abnormalities. The white cell count is 5.2 The patient is resting comfortably in bed. Possible home today. Objective - Vital Signs Vital signs: Vital Signs Temp 98.0 F 04/17/20 00:00 Pulse 66 04/17/20 04:00 Resp 15 04/17/20 04:00 BP 159/78 04/17/20 04:00 Pulse Ox 99 04/17/20 04:00 Intake & Output 04/16/20 04/17/20 04/17/20 18:59 06:59 18:59 Intake Total 1026.333 880 Output Total 0 200 500 Balance 1026.333 680 -500 Weight 69.1 kg 70 kg Intake: IV 820 D5-0.45% NaCl with KCl 800 20Meq/l 1,000 ml @ 50 mls /hr IV .Q20H [facility] Rx#: [id number] Sodium Chloride 0.9% 1, 20 000 ml @ 200 mls/hr IV . Q5H [facility] Rx#:[id number] Intake, IV Titration 206.333 Amount Insulin Regular 100 unit 6.333 In Sodium Chloride 0.9% 100 ml @ 0.1 UNITS/KG/HR 6.551 mls/hr IV .[id number] [facility] Rx#:[id number] Magnesium Sulfate-D5w Pmx 200 1 gm In Dextrose/Water 1 100ml.bag @ 100 mls/hr IVPB Q1H [facility] Rx#: [id number] Oral 880 Output: Urine 0 200 500 Other: Voiding Method Toilet Toilet # Voids 1 1 # Bowel Movements 1 - Exam The patient appeared well nourished and normally developed. Vital signs as documented. Head exam is unremarkable. No scleral icterus or corneal arcus noted. Neck is without jugular venous distension, thyromegaly, or carotid bruits. Carotid upstrokes are brisk bilaterally. Lungs are clear to auscultation and percussion. Cardiac exam reveals the PMI to be normally sized and situated. Rhythm is regular. First and second heart sounds normal. No murmurs, rubs or gallops. Abdominal exam reveals normal bowel sounds, no masses, no organomegaly and no aortic enlargement. Extremities are nonedematous and both femoral and pedal pulses are normal.Examination of the skin revealed no evidence of significant rashes, suspicious appearing nevi or other concerning lesions. Neurologically the patient is awake and alert and there is no focal neurological deficits. - Labs CBC & Chem 7: 04/17/20 03:09 04/17/20 03:09 Labs: Abnormal Lab Results - Last 24 Hours (Table) 04/16/20 04/16/20 04/16/20 Range/Units 08:16 08:59 10:01 RBC (3.80-5.40) m/uL Hgb (11.4-16.0) gm/dL Hct (34.0-46.0) % APTT (22.0-30.0) sec Sodium (137-145) mmol/L BUN (7-17) mg/dL Creatinine (0.52-1.04) mg/dL POC Glucose (mg/dL) 127 H 105 H 117 H (75-99) mg/dL Phosphorus (2.5-4.5) mg/dL Total Protein (6.3-8.2) g/dL Albumin (3.5-5.0) g/dL 04/16/20 04/16/20 04/16/20 Range/Units 11:30 16:39 20:06 RBC (3.80-5.40) m/uL Hgb (11.4-16.0) gm/dL Hct (34.0-46.0) % APTT (22.0-30.0) sec Sodium 135 L (137-145) mmol/L BUN 24 H (7-17) mg/dL Creatinine 1.06 H (0.52-1.04) mg/dL POC Glucose (mg/dL) 204 H 158 H (75-99) mg/dL Phosphorus 2.1 L (2.5-4.5) mg/dL Total Protein 5.2 L (6.3-8.2) g/dL Albumin 2.7 L (3.5-5.0) g/dL 04/17/20 04/17/20 04/17/20 Range/Units 03:09 03:09 03:09 RBC 3.48 L (3.80-5.40) m/uL Hgb 10.1 L (11.4-16.0) gm/dL Hct 32.0 L (34.0-46.0) % APTT 21.2 L (22.0-30.0) sec Sodium 133 L (137-145) mmol/L BUN 22 H (7-17) mg/dL Creatinine (0.52-1.04) mg/dL POC Glucose (mg/dL) (75-99) mg/dL Phosphorus (2.5-4.5) mg/dL Total Protein 5.0 L (6.3-8.2) g/dL Albumin 2.6 L (3.5-5.0) g/dL 04/17/20 Range/Units 06:32 RBC (3.80-5.40) m/uL Hgb (11.4-16.0) gm/dL Hct (34.0-46.0) % APTT (22.0-30.0) sec Sodium (137-145) mmol/L BUN (7-17) mg/dL Creatinine (0.52-1.04) mg/dL POC Glucose (mg/dL) 187 H (75-99) mg/dL Phosphorus (2.5-4.5) mg/dL Total Protein (6.3-8.2) g/dL Albumin (3.5-5.0) g/dL Assessment and Plan Plan: 1 DKA with mild anion gap metabolic acidosis, recovered 2 diabetes mellitus type 2 with poor blood sugar control, and persistently eleva lauren HbA1c. The patient is a very brittle diabetic.issues HbA1c has been quite elevated at 14. She has been fluctuating her blood sugar with episodes of hypotension and hypoglycemia. She has been very difficult to control. She has been seeing endocrinology on an outpatient basis. Currently on Levemir and NovoLog with meals and a sliding scale. 3 coronary artery disease with previous coronary intervention and stenting of RCA and PDA. The patient has troponin leak without any acute ischemic changes or chest pain. EKG is consistent with old Q waves consistent with an old Q wave part.the troponin peaked at 0.2 and the patient's free of any chest pain. 4 previous history of DVT currently on no anticoagulants 5 anxiety/panic 6 COVID 19 infection in June 2019, recovered 7 coronary artery disease 8 hypertension 9 hyperlipidemia 10 ALLERGIC rhinitis 11 diabetic peripheral neuropathy 12 chronic back pain and sciatica 13 peripheral vascular disease 14 remote history of a pneumothorax requiring chest tube insertion Plan offered this patient carb consistent diet Levemir 7 units daily in a.m. NovoLog 6 units with meals in addition to a sliding scale coverage Monitor blood sugar for another few hours Her outpatient medications have been resumed She wants to go home , no major fluctuations in her blood sugars. resumed home medications including Coreg, aspirin, and Singulair and Crestor. losartan and hydralazine to be restarted. The patient's blood pressure is imp roved Pulse ox is 99% on room air Free of any chest pain and the patient can be discharged home today.
[2020-04-17] MEDS: CHOLECALCIFEROL 25 MCG (1000 IU) TABLET PO SCH (08:25)
[2020-04-17] MEDS: ATORVASTATIN 20 MG TAB PO SCH (08:25)
[2020-04-17] MEDS: ASPIRIN 325 MG TAB PO SCH (08:25)
[2020-04-17 08:32] VITALS: BP 161/83; PULSE 70; RESP 16; TEMP 97.7
[2020-04-17] MEDS ORDERED: LOSARTAN 50 MG TAB PO SCH (09:00)
--- NOTE | 2020-04-17 09:27 | P.PN ---
Subjective HISTORY OF PRESENTING ILLNESS This is a pleasant 70-year-old female past medical history significant for diabetes mellitus type 1, diabetic neuropathy, hypertension, paroxysmal atrial fibrillation, CAD status post PCI of the PDA in 2010, DVT, recent weight loss, CKD, anemia. She follows in the office with Dr Hernandez. We have been asked to see in consultation for elevated troponins. Patient has had multiple episodes of issues with her sugars with hyperglycemia and hypoglycemia. She apparently lost her recently and has been losing weight. She admits to multiple changes in her insulin regimen which has been frustrating for her. She admits she has been on insulin for proximally 40 years. She had an episode of becoming dizzy and lightheaded when she was getting up and feeling weak. Her blood sugar was checked which showed a sugar of 600 and therefore was brought into the emergency department. She was found to be in DKA and was placed on insulin drip and given IV fluids. She does admit that she has been having some lower e xtremity edema and was taken off of amlodipine with improvement in her lower extremity edema previously. She has had prior similar episodes in the past with varying degrees of troponin elevation up to 1.7. Her troponins on visitation were 0.12, 0.13, 0.24. She denies any chest pain, pressure, nausea, diaphoresis. She admits she did have a stent placed years ago and has been doing well since that time. She is asking to go home and does not want to stay in the hospital. Last echo from June/2019 showed normal ejection fraction 55-60% without significant valvular disease. 04/17/20 Patient seen and examined. Blood sugars better controlled. She denies any chest pain, pressure, shortness breath. Echocardiogram was performed which showed preserved ejection fraction 50-55%. REVIEW OF SYSTEMS At the time of my exam: CONSTITUTIONAL: Denies fever or chills. CARDIOVASCULAR: Denies chest pain, shortness of breath, orthopnea, PND or palpitations. RESPIRATORY: Denies cough. GASTROINTESTINAL: Denies abdominal pain, diarrhea, constipation, nausea or vomiting. MUSCULOSKELETAL: Denies myalgias. NEUROLOGIC: Denies numbness, tingling or weakness. ENDOCRINE: Denies fatigue, weight change, polydipsia or polyurina. GENITOURINARY: Denies burning, hematuria or urgency with micturation. HEMATOLOGIC: Denies history of anemia or bleeding. PHYSICAL EXAMINATION Vital signs reviewed CONSTITUTIONAL: No apparent distress. HEENT: Head is normocephalic. Pupils are equal, round. Sclerae anicteric. Mucous membranes of the mouth are moist. No JVD. No carotid bruit. CHEST EXAMINATION: Lungs are clear to auscultation. No chest wall tenderness is noted on palpation or with deep breathing. HEART EXAMINATION: Regular rate and rhythm. S1, S2 heard. No murmurs, gallops or rub. ABDOMEN: Soft, nontender. Positive bowel sounds. EXTREMITIES: 2+ peripheral pulses, no lower extremity edema and no calf ten derness. NEUROLOGIC EXAMINATION: Patient is awake, alert and oriented x3. ASSESSMENT 1. Non-STEMI, type II mechanism secondary to DKA, preserved ejection fraction 2. DKA 3. Type 1 diabetes mellitus 4. History of coronary artery disease with prior PCI to RCA 5. Paroxysmal atrial fibrillation, currently normal sinus rhythm 6. Anemia 7. Hypertension 8. Hyperlipidemia 9. Acute kidney injury, improving PLAN 2-D echo reviewed with normal ejection fraction. Suspect mildly increased troponins related to DKA and with continue to treat patient medically as she is not having any angina. No further recommendations from a cardiology standpoint. Patient may be discharged with outpatient follow-up. Further assessment of possible anticoagulation for her Afib as an outpatient. Objective - Vital Signs Vital signs: Vital Signs Temp 97.7 F 04/17/20 08:00 Pulse 70 04/17/20 08:00 Resp 16 04/17/20 08:00 BP 161/83 04/17/20 08:00 Pulse Ox 100 04/17/20 08:00 Intake & Output 04/16/20 04/17/20 04/17/20 18:59 06:59 18:59 Intake Total 1026.333 880 Output Total 0 200 500 Balance 1026.333 680 -500 Weight 69.1 kg 70 kg Intake: IV 820 D5-0.45% NaCl with KCl 800 20Meq/l 1,000 ml @ 50 mls /hr IV .Q20H [facility] Rx#: [id number] Sodium Chloride 0.9% 1, 20 000 ml @ 200 mls/hr IV . Q5H [facility] Rx#:[id number] Intake, IV Titration 206.333 Amount Insulin Regular 100 unit 6.333 In Sodium Chloride 0.9% 100 ml @ 0.1 UNITS/KG/HR 6.551 mls/hr IV .[id number] [facility] Rx#:[id number] Magnesium Sulfate-D5w Pmx 200 1 gm In Dextrose/Water 1 100ml.bag @ 100 mls/hr IVPB Q1H [facility] Rx#: [id number] Oral 880 Output: Urine 0 200 500 Other: Voiding Method Toilet Toilet Toilet Bedside Commode # Voids 1 1 # Bowel Movements 1 - Labs CBC & Chem 7: 04/17/20 03:09 04/17/20 03:09 Labs: Abnormal Lab Results - Last 24 Hours (Table) 04/16/20 04/16/20 04/16/20 Range/Units 10:01 11:30 16:39 RBC (3.80-5.40) m/uL Hgb (11.4-16.0) gm/dL Hct (34.0-46.0) % APTT (22.0-30.0) sec Sodium (137-145) mmol/L BUN (7-17) mg/dL Creatinine (0.52-1.04) mg/dL POC Glucose (mg/dL) 117 H 204 H 158 H (75-99) mg/dL Phosphorus (2.5-4.5) mg/dL Total Protein (6.3-8.2) g/dL Albumin (3.5-5.0) g/dL 04/16/20 04/17/20 04/17/20 Range/Units 20:06 03:09 03:09 RBC (3.80-5.40) m/uL Hgb (11.4-16.0) gm/dL Hct (34.0-46.0) % APTT 21.2 L (22.0-30.0) sec Sodium 135 L 133 L (137-145) mmol/L BUN 24 H 22 H (7-17) mg/dL Creatinine 1.06 H (0.52-1.04) mg/dL POC Glucose (mg/dL) (75-99) mg/dL Phosphorus 2.1 L (2.5-4.5) mg/dL Total Protein 5.2 L 5.0 L (6.3-8.2) g/dL Albumin 2.7 L 2.6 L (3.5-5.0) g/dL 04/17/20 04/17/20 Range/Units 03:09 06:32 RBC 3.48 L (3.80-5.40) m/uL Hgb 10.1 L (11.4-16.0) gm/dL Hct 32.0 L (34.0-46.0) % APTT (22.0-30.0) sec Sodium (137-145) mmol/L BUN (7-17) mg/dL Creatinine (0.52-1.04) mg/dL POC Glucose (mg/dL) 187 H (75-99) mg/dL Phosphorus (2.5-4.5) mg/dL Total Protein (6.3-8.2) g/dL Albumin (3.5-5.0) g/dL
--- NOTE | 2020-04-17 10:00 | P.DS ---
Providers Date of admission: 04/15/20 14:50 Expected date of discharge: 04/17/20 Attending physician: Mary Heath Consults: 04/15/20 14:50 Consult Physician Urgent Consulting Provider: Jayce Dewitt Consult Reason/Comments: NSTEMI Do you want consulting provider notified?: Yes Primary care physician: Mary Heath Hospital Course: This is a 70-year-old -[place] female one of my patient with a previous medical history significant for diabetes mellitus type 1 with diabetic polyneuropathy, hypertension and hypertensive cardiovascular disease with left ventricular hypertrophy, CAD status post PCI of the PDA off the RCA back in 2010, history of DVT in lower extremity, history of narcolepsy, significant weight loss over the last few months since her with metastatic lung cancer, and she had lost quite a bit of weight and not controlling her diabetes very well her hemoglobin A1c is around 14%, patient developed to have a significant dizziness and lightheadedness today in the morning while she was getting up from but she could not lift her head up she waited until her grandson came in and she asked for help apparently her blood glucose was checked he was about 600, she was extremely fatigued and tired she was nauseated with poor appetite, she had no diarrhea, she had no chest pain or shortness breath, EMS was called and the patient was transferred to [facility] for evaluation and treatment, patient was seen by her synthetic department supervisor few days ago and she was started on a new insulin Toujeo instead of Lantus along with a sliding scale ins ulin, patient seems to have significant issues with diabetes control. 04/16: Patient is laying down in bed in no apparent distress, she is taken off heparin drip today, she was noted by cardiology was recommended for the patient to go for echocardiogram, she was seen by ICU, she was taken off insulin drip she was started on Levemir 7 units subcu Saturday along with a sliding scale insulin, she would be transferred out of the ICU for a stepdown unit in the next few hours, hopefully she will be able to get out of the hospital in the next 24 hours. Discharge diagnoses: 1. Acute kidney injury due to acute tubular necrosis secondary to poor oral intake. 2. Diabetes mellitus type 2 with DKA. 3. Hyponatremia secondary to hyperglycemia and hypovolemia 4. CAD post-PCI. 5. Hypertension and hypertensive cardiovascular disease. 6. Hyperlipidemia. 7. ALLERGIC rhinitis. 8. History of narcolepsy. 9. Non-ST elevation CO type II secondary to DKA. Patient Condition at Discharge: Fair Plan - Discharge Summary Discharge Rx Participant: Yes New Discharge Prescriptions: Continue Montelukast Sodium [Singulair] 10 mg PO HS PRN PRN Reason: Allergy Symptoms Rosuvastatin [Crestor] 10 mg PO DAILY Insulin Aspart [NovoLOG Flexpen] See Protocol SQ AC-TID Aspirin 81 mg PO DAILY chew Losartan Potassium [Cozaar] 50 mg PO BID Cholecalciferol [Vitamin D3 (25 Mcg = 1000 Iu)] 25 mcg PO DAILY hydrALAZINE HCL [Apresoline] 50 mg PO TID Insulin Aspart [NovoLOG Flexpen] 6 unit SQ AC-TID Insulin Glargine,Hum.rec.anlog [Toujeo Sadafostkaiser] See Protocol SQ HS Carvedilol [Coreg] 12.5 mg PO BID Discharge Medication List Montelukast Sodium [Singulair] 10 mg PO HS PRN 01/30/19 [History] Rosuvastatin [Crestor] 10 mg PO DAILY 01/30/19 [History] Insulin Aspart [NovoLOG Flexpen] See Protocol SQ AC-TID 06/26/19 [History] Aspirin 81 mg PO DAILY chew 06/30/19 [Rx] Cholecalciferol [Vitamin D3 (25 Mcg = 1000 Iu)] 25 mcg PO DAILY 01/04/20 [History] Losartan Potassium [Cozaar] 50 mg PO BID 01/04/20 [History] Carvedilol [Coreg] 12.5 mg PO BID 04/15/20 [History] Insulin Aspart [NovoLOG Flexpen] 6 unit SQ AC-TID 04/15/20 [History] Insulin Glargine,Hum.rec.anlog [Toujuan ao Solostkaiser] See Protocol SQ HS 04/15/20 [History] hydrALAZINE HCL [Apresoline] 50 mg PO TID 04/15/20 [History] Follow up Appointment(s)/Referral(s): Mary Heath MD [Primary Care Provider] - 1-2 days Patient Instructions/Handouts: Diabetic Ketoacidosis (DC) Discharge Disposition: HOME WITH HOME HEALTH SERVICES
--- NOTE | 2020-04-19 11:02 | CDI ---
Documentation Clarification Form Date: 04/19/20 From: Rachele Haile Phone: Admit Date: 04/15/2020 02:50:00 PM Patient Name: Michelle Curry Visit Number: [id number] Discharge Date: 04/17/2020 10:55:00 AM ATTENTION: The Clinical Documentation Specialists (CDI) and [facility] Coding Staff appreciate your assistance in clarifying documentation. Please respond to the clarification below the line at the bottom and electronically sign. The CDI & [facility] Coding staff will review the response and follow-up if needed. Please note: Queries are made part of the Legal Health Record. If you have any questions, please contact the author of this message via ITS. Dr. Mary Heath, CKD is documented in the cardiac consult & PN. History/Risk Factors: Type 1 DM w ketoacidosis, hypoglycemia, peripheral neuropathy & vascular disease, Type 2 CA, ATN, hyponatremia, HTN, PAF, CAD, GERD, HLD Clinical Indicators: 04/15-04/17/20 Current BUN: 33, 19, 30, 30, 29, 24, 22 Current CR: 1.11, .58, 1.00, 1.00, 1.04, 1.06, .96 Current GFR: 58, >90, 66, 66, 62, 61, 68 Treatment: Insulin, Mg replacement, K replacement, IV Sodium Chloride, In order to capture the severity of condition, please clarify the stage of the CKD, if known: CKD ruled out CKD Stage 1 (GFR > 90) CKD Stage 2 (GFR 60-89) CKD Stage 3a (GFR 45-59) CKD Stage 3b (GFR 30-44) CKD Stage 4 (GFR 15-29) CKD Stage 5 (GFR <15) ESRD Other, please specify Unable to determine [Template Last reviewed: October 2019] CKD ruled out MTDD
== END 2020-04-17 10:55 | disposition home health service (06) | DRG 637 ==
LOC: EC 11:55 → 2SICU 14:50
PROVIDERS: ADMIT Internal Medicine; ATTEND Internal Medicine
DX: E10.10 Type 1 diabetes mellitus with ketoacidosis without coma (principal); I21.A1 Myocardial infarction type 2; N17.0 Acute kidney failure with tubular necrosis; E87.1 Hypo-osmolality and hyponatremia; E10.649 Type 1 diabetes mellitus with hypoglycemia without coma; E10.51 Type 1 diabetes mellitus with diabetic peripheral angiopathy without gangrene; E10.42 Type 1 diabetes mellitus with diabetic polyneuropathy; I95.9 Hypotension, unspecified; E86.0 Dehydration; Z79.4 Long term (current) use of insulin; I48.0 Paroxysmal atrial fibrillation; I10 Essential (primary) hypertension; I25.10 Atherosclerotic heart disease of native coronary artery without angina pectoris; K21.9 Gastro-esophageal reflux disease without esophagitis; E78.5 Hyperlipidemia, unspecified; D64.9 Anemia, unspecified; I25.2 Old myocardial infarction; G47.419 Narcolepsy without cataplexy; G89.29 Other chronic pain; M54.9 Dorsalgia, unspecified; E86.1 Hypovolemia; M54.32 Sciatica, left side; M54.31 Sciatica, right side; M19.90 Unspecified osteoarthritis, unspecified site; J30.9 Allergic rhinitis, unspecified; Z86.16 Personal history of COVID-19; Z79.82 Long term (current) use of aspirin; Z79.899 Other long term (current) drug therapy; Z87.891 Personal history of nicotine dependence; Z90.710 Acquired absence of both cervix and uterus; Z86.718 Personal history of other venous thrombosis and embolism; Z90.49 Acquired absence of other specified parts of digestive tract; Z98.51 Tubal ligation status; Z87.19 Personal history of other diseases of the digestive system; Z87.42 Personal history of other diseases of the female genital tract; Z95.5 Presence of coronary angioplasty implant and graft; Z87.39 Personal history of other diseases of the musculoskeletal system and connective tissue; Z87.2 Personal history of diseases of the skin and subcutaneous tissue; Z98.42 Cataract extraction status, left eye; Z98.41 Cataract extraction status, right eye; Z96.1 Presence of intraocular lens; Z98.890 Other specified postprocedural states; Z88.5 Allergy status to narcotic agent; Z88.2 Allergy status to sulfonamides; Z88.8 Allergy status to other drugs, medicaments and biological substances; Z82.49 Family history of ischemic heart disease and other diseases of the circulatory system; Z82.0 Family history of epilepsy and other diseases of the nervous system; Z81.1 Family history of alcohol abuse and dependence
CPT/HCPCS: 36415; 71046; 80048; 80051; 80053; 81003; 82009; 82465; 82550; 82565; 82803; 82947; 83605; 83718; 83735; 83880; 84100; 84478; 84484; 84520; 85025; 85610; 85730; 87324; 93005; 93308; 96365; 96366; 96375; 96376; 99291

== ENCOUNTER 2020-05-24 11:42 | Observation (INO) | payer MEDICARE, OTHER ==
[2020-05-24 12:40] LABS: Basophils % (A) 1 %; Eosinophils # (A) 0.1 k/uL (0-0.7); Eosinophils % (A) 3 %; HCT 32.3 % (34.0-46.0); HGB 10.6 gm/dL (11.4-16.0); Lymphocytes # (A) 0.9 k/uL (1.0-4.8); Lymphocytes % (A) 23 %; MCH 29.1 pg (25.0-35.0); MCHC 32.9 g/dL (31.0-37.0); MCV 88.5 fL (80.0-100.0); Mean Platelet Volume 8.6; Monocytes # (A) 0.3 k/uL (0-1.0); Monocytes % (A) 7 %; Neutrophils # (A) 2.6 k/uL (1.3-7.7); Neutrophils % (A) 65 %; Platelet Count 209 k/uL (150-450); RBC 3.64 m/uL (3.80-5.40); RDW 14.1 % (11.5-15.5)
[2020-05-24 12:59] LABS: INR 0.9 (<1.2); Partial Thromboplastin Time 22.7 sec (22.0-30.0)
[2020-05-24 13:00] LABS: Albumin 3.7 g/dL (3.5-5.0); Calcium 9.3 mg/dL (8.4-10.2); Potassium 3.7 mmol/L (3.5-5.1); Total Bilirubin 0.5 mg/dL (0.2-1.3); Total Protein 6.5 g/dL (6.3-8.2)
--- NOTE | 2020-05-24 13:04 | ED ---
General Adult HPI - General Chief complaint: Recheck/Abnormal Lab/Rx Stated complaint: abnormal labs Time Seen by Provider: 05/24/20 11:57 Source: patient Mode of arrival: wheelchair Limitations: no limitations - History of Present Illness Initial comments: 70-year-old female with history of diabetes presents to the emergency department with multiple chief complaints. Patient reports she takes Lantus at night and is on a sliding scale of Humalog throughout the day. Patient reports her blood glucose levels have been fluctuating. States this morning around 7 AM, it was 280 then she took 12 units of Humalog and it went down to 68. States she ate s ome food and he climbed up back to 160 and then she took another 12 units. Patient reports she sees an institutional nutrition consultant who is taking care of her diabetes. Patient is also reporting a lesion on the plantar aspect of her right foot. She denies any erythema or discharge. Patient states she does not want to lose her feet. Patient decided to come in to the emergency department for evaluation, as she was getting ready the primary care office contacted her regarding low hemoglobins of 9.3. They advised her to come to the primary care office for further evaluation. Patient states that she wanted to come to the emergency department instead. She denies any calf pain, chest pain, shortness of breath. - Related Data Home Medications Medication Instructions Recorded Confirmed Montelukast Sodium [Singulair] 10 mg PO HS PRN 01/30/19 04/15/20 Rosuvastatin [Crestor] 10 mg PO DAILY 01/30/19 04/15/20 Insulin Aspart [NovoLOG Flexpen] See Protocol SQ AC-TID 06/26/19 04/15/20 Cholecalciferol [Vitamin D3 (25 25 mcg PO DAILY 01/04/20 04/15/20 Mcg = 1000 Iu)] Losartan Potassium [Cozaar] 50 mg PO BID 01/04/20 04/15/20 Carvedilol [Coreg] 12.5 mg PO BID 04/15/20 04/15/20 Insulin Aspart [NovoLOG Flexpen] 6 unit SQ AC-TID 04/15/20 04/15/20 Insulin Glargine,Hum.rec.anlog See Protocol SQ HS 04/15/20 04/15/20 [Jaxson Read] hydrALAZINE HCL [Apresoline] 50 mg PO TID 04/15/20 04/15/20 Previous Rx's Medication Instructions Recorded Aspirin 81 mg PO DAILY chew 06/30/19 Allergies Allergy/AdvReac Type Severity Reaction Status Date / Time morphine AdvReac PASSES OUT Verified 05/24/20 11:54 nitroglycerin AdvReac PASSES OUT Verified 05/24/20 11:54 Sulfa (Sulfonamide AdvReac Itching Verified 05/24/20 11:54 Antibiotics) Review of Systems ROS Statement: Those systems with pertinent positive or pertinent negative responses have been documented in the HPI. ROS Other: All systems not noted in ROS Statement are negative. Past Medical History Past Medical History: Coronary Artery Disease (CAD), Diabetes Mellitus, Deep Vein Thrombosis (DVT), GERD/Reflux, Hyperlipidemia, Hypertension, Osteoarthritis (OA), Vascular Disorder Additional Past Medical History / Comment(s): IDDM type I with diabetic neuropathy, narcolepsy, DVTs L lower extremity, vertigo occasionally, low back pian with bilateral sciatica, PAD, pneumothorax when pt was in her 20s with chest tube, constipation, bronchitis. The patient also had a infection will COVID 19 on 06/28/2019 from which she recovered. History of Any Multi-Drug Resistant Organisms: None Reported Past Surgical History: Appendectomy, Cholecystectomy, Heart Catheterization With Stent, Hysterectomy, Tubal Ligation Additional Past Surgical History / Comment(s): PCI/stent, ectopic pregnancies with eventual total hysterectomy, EGD, colonoscopy, L breast biopsy-benign, bilateral carpal tunnel release, bilateral eyes laser surgery/lens. Past Anesthesia/Blood Transfusion Reactions: Previous Problems w/ Anesthesia, Postoperative Nausea & Vomiting (PONV) Additional Past Anesthesia/Blood Transfusion Reaction / Comment(s): PT STATES HER AND HER FAMILY HAVE DIFFICULTY WAKING UP Date of Last Stent Placement:: Past Psychological History: No Psychological Hx Reported Smoking Status: Former smoker Past Alcohol Use History: None Reported Past Drug Use History: None Reported - Past Family History Mother Family Medical History: Hypertension, Seizure Disorder Additional Family Medical History / Comment(s): Mother at age 75 Father Family Medical History: Renal Disease Additional Family Medical History / Comment(s): Father at age 58 from acute renal failure and he was an alcoholic. Son(s) Family Medical History: No Reported History Additional Family Medical History / Comment(s): Patient has 2 sons with no major medical problems. General Exam Limitations: no limitations General appearance: alert, in no apparent distress Head exam: Present: atraumatic, normocephalic, normal inspection Eye exam: Present: normal appearance, PERRL, EOMI Pupils: Present: normal accommodation ENT exam: Present: normal exam, normal oropharynx, mucous membranes moist Neck exam: Present: normal inspection, full ROM. Absent: tenderness Respiratory exam: Present: normal lung sounds bilaterally. Absent: respiratory distress, wheezes, rales, rhonchi, stridor, chest wall tenderness Cardiovascular Exam: Present: regular rate, normal rhythm, normal heart sounds GI/Abdominal exam: Present: soft. Absent: distended, tenderness, guarding Extremities exam: Present: full ROM, normal capillary refill, pedal edema (+1 pitting edema bilaterally.). Absent: normal inspection (Diabetic ulcer starting to form on the plantar aspect of her right foot. There is no surrounding erythema or discharge noted at this time.), tenderness (No tenderness at the ulcer site.), joint swelling, calf tenderness Back exam: Present: normal inspection, full ROM Neurological exam: Present: alert, oriented X3, normal gait Psychiatric exam: Present: normal affect, normal mood Skin exam: Present: warm, dry, intact, normal color Course Vital Signs 05/24/20 05/24/20 05/24/20 11:48 13:05 14:27 Temperature 97.6 F 97.6 F Pulse Rate 65 76 76 Respiratory 20 18 18 Rate Blood Pressure 109/60 131/73 131/73 O2 Sat by Pulse 98 98 Oximetry EKG Findings - EKG Comments: EKG Findings:: Sinus rhythm, inverted T waves in lead 3 and aVF. Similar EKG to 04/15/20. Ventricular rate 76, RI 160, QRS 100, QTC 454. Medical Decision Making - Medical Decision Making 70-year-old diabetic female presents to the emergency department with a multiple chief complaints. On physical examination, patient is alert and oriented 3. Patient is responding well to all questions. Hemoglobin is 10.[address] revealed a glucose level of 60. Repeat Accu-Chek reveals a blood glucose level 183. patient was getting ready to be discharged and she began to feel confused. Repeat Accu-Chek was obtained with blood glucose level down to 40s. Patient was given 1 amp of D50. The glucose levels elevated back to 120 and she was alert and oriented. Soon after they also dropped down again. Patient was given orange juice, crackers and peanut butter. On reevaluation, the Accu-Chek revealed decrease in her glucose levels again. Patient was given a second dose of D50 and started on D50 half normal infusion. Patient will be admitted for further medical management. Case discussed with Dr. Carney. Admitting physician is - Lab Data Result diagrams: 05/24/20 12:09 05/24/20 12:09 Lab Results 05/24/20 05/24/20 05/24/20 Range/Units 12:09 12:09 12:09 WBC 4.0 (3.8-10.6) k/uL RBC 3.64 L (3.80-5.40) m/uL Hgb 10.6 L (11.4-16.0) gm/dL Hct 32.3 L (34.0-46.0) % MCV 88.5 (80.0-100.0) fL MCH 29.1 (25.0-35.0) pg MCHC 32.9 (31.0-37.0) g/dL RDW 14.1 (11.5-15.5) % Plt Count 209 (150-450) k/uL MPV 8.6 Neutrophils % 65 % Lymphocytes % 23 % Monocytes % 7 % Eosinophils % 3 % Basophils % 1 % Neutrophils # 2.6 (1.3-7.7) k/uL Lymphocytes # 0.9 L (1.0-4.8) k/uL Monocytes # 0.3 (0-1.0) k/uL Eosinophils # 0.1 (0-0.7) k/uL Basophils # 0.0 (0-0.2) k/uL PT 10.0 (9.0-12.0) sec INR 0.9 (<1.2) APTT 22.7 (22.0-30.0) sec Sodium 138 (137-145) mmol/L Potassium 3.7 (3.5-5.1) mmol/L Chloride 99 (98-107) mmol/L Carbon Dioxide 32 H (22-30) mmol/L Anion Gap 7 mmol/L BUN 29 H (7-17) mg/dL Creatinine 1.10 H (0.52-1.04) mg/dL Est GFR (CKD-EPI)AfAm 58 (>60 ml/min/1.73 sqM) Est GFR (CKD-EPI)NonAf 50 (>60 ml/min/1.73 sqM) Glucose 61 L (74-99) mg/dL POC Glucose (mg/dL) (75-99) mg/dL POC Glu Plugging Machine Operator ID Calcium 9.3 (8.4-10.2) mg/dL Total Bilirubin 0.5 (0.2-1.3) mg/dL AST 27 (14-36) U/L ALT 16 (4-34) U/L Alkaline Phosphatase 75 (38-126) U/L Troponin I (0.000-0.034) ng/mL Total Protein 6.5 (6.3-8.2) g/dL Albumin 3.7 (3.5-5.0) g/dL 05/24/20 05/24/20 05/24/20 Range/Units 12:09 13:02 14:02 WBC (3.8-10.6) k/uL RBC (3.80-5.40) m/uL Hgb (11.4-16.0) gm/dL Hct (34.0-46.0) % MCV (80.0-100.0) fL MCH (25.0-35.0) pg MCHC (31.0-37.0) g/dL RDW (11.5-15.5) % Plt Count (150-450) k/uL MPV Neutrophils % % Lymphocytes % % Monocytes % % Eosinophils % % Basophils % % Neutrophils # (1.3-7.7) k/uL Lymphocytes # (1.0-4.8) k/uL Monocytes # (0-1.0) k/uL Eosinophils # (0-0.7) k/uL Basophils # (0-0.2) k/uL PT (9.0-12.0) sec INR (<1.2) APTT (22.0-30.0) sec Sodium (137-145) mmol/L Potassium (3.5-5.1) mmol/L Chloride (98-107) mmol/L Carbon Dioxide (22-30) mmol/L Anion Gap mmol/L BUN (7-17) mg/dL Creatinine (0.52-1.04) mg/dL Est GFR (CKD-EPI)AfAm (>60 ml/min/1.73 sqM) Est GFR (CKD-EPI)NonAf (>60 ml/min/1.73 sqM) Glucose (74-99) mg/dL POC Glucose (mg/dL) 186 H 60 L (75-99) mg/dL POC Glu Plugging Machine Operator Rani Garcia Rani Calcium (8.4-10.2) mg/dL Total Bilirubin (0.2-1.3) mg/dL AST (14-36) U/L ALT (4-34) U/L Alkaline Phosphatase (38-126) U/L Troponin I <0.012 (0.000-0.034) ng/mL Total Protein (6.3-8.2) g/dL Albumin (3.5-5.0) g/dL 05/24/20 05/24/20 05/24/20 Range/Units 14:04 14:06 14:21 WBC (3.8-10.6) k/uL RBC (3.80-5.40) m/uL Hgb (11.4-16.0) gm/dL Hct (34.0-46.0) % MCV (80.0-100.0) fL MCH (25.0-35.0) pg MCHC (31.0-37.0) g/dL RDW (11.5-15.5) % Plt Count (150-450) k/uL MPV Neutrophils % % Lymphocytes % % Monocytes % % Eosinophils % % Basophils % % Neutrophils # (1.3-7.7) k/uL Lymphocytes # (1.0-4.8) k/uL Monocytes # (0-1.0) k/uL Eosinophils # (0-0.7) k/uL Basophils # (0-0.2) k/uL PT (9.0-12.0) sec INR (<1.2) APTT (22.0-30.0) sec Sodium (137-145) mmol/L Potassium (3.5-5.1) mmol/L Chloride (98-107) mmol/L Carbon Dioxide (22-30) mmol/L Anion Gap mmol/L BUN (7-17) mg/dL Creatinine (0.52-1.04) mg/dL Est GFR (CKD-EPI)AfAm (>60 ml/min/1.73 sqM) Est GFR (CKD-EPI)NonAf (>60 ml/min/1.73 sqM) Glucose (74-99) mg/dL POC Glucose (mg/dL) 26 L 22 L 123 H (75-99) mg/dL POC Glu Plugging Machine Operator Rani Garcia Ashley Smith, Ashley Calcium (8.4-10.2) mg/dL Total Bilirubin (0.2-1.3) mg/dL AST (14-36) U/L ALT (4-34) U/L Alkaline Phosphatase (38-126) U/L Troponin I (0.000-0.034) ng/mL Total Protein (6.3-8.2) g/dL Albumin (3.5-5.0) g/dL 05/24/20 05/24/20 Range/Units 14:42 15:08 WBC (3.8-10.6) k/uL RBC (3.80-5.40) m/uL Hgb (11.4-16.0) gm/dL Hct (34.0-46.0) % MCV (80.0-100.0) fL MCH (25.0-35.0) pg MCHC (31.0-37.0) g/dL RDW (11.5-15.5) % Plt Count (150-450) k/uL MPV Neutrophils % % Lymphocytes % % Monocytes % % Eosinophils % % Basophils % % Neutrophils # (1.3-7.7) k/uL Lymphocytes # (1.0-4.8) k/uL Monocytes # (0-1.0) k/uL Eosinophils # (0-0.7) k/uL Basophils # (0-0.2) k/uL PT (9.0-12.0) sec INR (<1.2) APTT (22.0-30.0) sec Sodium (137-145) mmol/L Potassium (3.5-5.1) mmol/L Chloride (98-107) mmol/L Carbon Dioxide (22-30) mmol/L Anion Gap mmol/L BUN (7-17) mg/dL Creatinine (0.52-1.04) mg/dL Est GFR (CKD-EPI)AfAm (>60 ml/min/1.73 sqM) Est GFR (CKD-EPI)NonAf (>60 ml/min/1.73 sqM) Glucose (74-99) mg/dL POC Glucose (mg/dL) 51 L 42 L (75-99) mg/dL POC Glu Plugging Machine Operator ANGEL Paulino RaniRani Huggins Calcium (8.4-10.2) mg/dL Total Bilirubin (0.2-1.3) mg/dL AST (14-36) U/L ALT (4-34) U/L Alkaline Phosphatase (38-126) U/L Troponin I (0.000-0.034) ng/mL Total Protein (6.3-8.2) g/dL Albumin (3.5-5.0) g/dL Disposition Clinical Impression: Diabetic ulcer of right foot, Hypoglycemia Disposition: ADMITTED IP TO THIS [facility] Condition: Fair Instructions (If sedation given, give patient instructions): Diabetic Foot Ulcers (ED) Prescriptions: Cephalexin [Keflex] 500 mg PO Q6HR #28 cap Is patient prescribed a controlled substance at d/c from ED?: No Referrals: Mary Heath MD [Primary Care Provider] - 1-2 days Time of Disposition: 13:44
[2020-05-24 13:07] LABS: Glucose,Whole Blood 186 mg/dL (75-99)
[2020-05-24] MEDS: DEXTROSE 50% SYRINGE 50 ML IVP STA ×2 (14:08→15:18)
[2020-05-24 14:12] LABS: Glucose,Whole Blood 60 mg/dL (75-99)
[2020-05-24 14:12] LABS: Glucose,Whole Blood 26 mg/dL (75-99)
[2020-05-24 14:12] LABS: Glucose,Whole Blood 22 mg/dL (75-99)
[2020-05-24 14:32] LABS: Glucose,Whole Blood 123 mg/dL (75-99)
[2020-05-24 14:53] LABS: Glucose,Whole Blood 51 mg/dL (75-99)
[2020-05-24 15:14] LABS: Glucose,Whole Blood 42 mg/dL (75-99)
[2020-05-24] MEDS ORDERED: DEXTROSE 5%-0.45% NACL 1,000 ML IV ONE (15:15)
[2020-05-24] MEDS ORDERED: DEXTROSE 50% SYRINGE 50 ML IVP STA (15:16)
[2020-05-24] MEDS ORDERED: LORazepam 2 MG/ML INJ IV PRN (15:28)
[2020-05-24] MEDS ORDERED: ACETAMINOPHEN TAB 325 MG TAB PO PRN (15:28)
[2020-05-24] MEDS ORDERED: NALOXONE 0.4 MG/ML 1 ML VIAL IV PRN (15:28)
[2020-05-24] MEDS ORDERED: ONDANSETRON 4 MG/2 ML VIAL IVP PRN (15:28)
[2020-05-24 15:45] LABS: Glucose,Whole Blood 142 mg/dL (75-99)
[2020-05-24 16:18] LABS: Glucose,Whole Blood 79 mg/dL (75-99)
[2020-05-24 17:33] LABS: Glucose,Whole Blood 162 mg/dL (75-99)
[2020-05-24 17:44] LABS: Appearance,Urine Cloudy (Clear); Bacteria,Urine Rare /hpf; Bilirubin,Urine Negative (Negative); Blood,Urine Negative (Negative); Color,Urine Light Yellow; Glucose,Urine (UA) Negative (Negative); Hyaline Casts,Urine 4 /lpf (0-2); Ketones,Urine Negative (Negative); Leukocyte Esterase,Urine Negative (Negative); Mucus,Urine Rare /hpf; Nitrite,Urine Negative (Negative); PH, Urine 5.5 (5.0-8.0); Protein,Urine Negative (Negative); RBC,Urine 2 /hpf (0-5); Specific Gravity,Urine 1.004 (1.001-1.035); Squamous Epithelial Cell,Urine 1 /hpf (0-4); Urobilinogen,Urine <2.0 mg/dL (<2.0); WBC,Urine 6 /hpf (0-5)
[2020-05-24 19:26] LABS: Glucose,Whole Blood 306 mg/dL (75-99)
[2020-05-24 20:15] LABS: Glucose,Whole Blood 328 mg/dL (75-99)
[2020-05-24] MEDS: LOSARTAN 50 MG TAB PO SCH (21:38)
[2020-05-24] MEDS: FUROSEMIDE 40 MG TAB PO SCH (21:38)
[2020-05-24] MEDS: carvediloL 12.5 MG TAB PO SCH (21:38)
[2020-05-24] MEDS: hydrALAZINE HCL 50 MG TAB PO SCH (21:38)
[2020-05-24] MEDS: INSULIN DETEMIR (LEVEMIR) 100 UNIT/ML SYR SQ SCH (21:40)
[2020-05-24 22:33] LABS: Glucose,Whole Blood 408 mg/dL (75-99)
[2020-05-24] MEDS: HEPARIN SODIUM,PORCINE/PF 5,000 UNIT/0.5 ML SYRINGE SQ SCH (22:43)
[2020-05-25 00:22] LABS: Glucose,Whole Blood 375 mg/dL (75-99)
[2020-05-25] MEDS ORDERED: INSULIN ASPART (NovoLOG) 100 UNIT/ML VIAL SQ ONE (00:36)
[2020-05-25 02:22] LABS: Glucose,Whole Blood 288 mg/dL (75-99)
[2020-05-25 04:38] LABS: Glucose,Whole Blood 158 mg/dL (75-99)
[2020-05-25 06:42] LABS: Glucose,Whole Blood 119 mg/dL (75-99)
[2020-05-25] MEDS: INSULIN ASPART (NovoLOG) 100 UNIT/ML VIAL SQ SCH ×3 (07:06→17:46)
--- NOTE | 2020-05-25 07:48 | P.HPIM ---
History of Present Illness H&P Date: 05/24/20 Chief Complaint: Hypoglycemia HISTORY OF PRESENT ILLNESS: This is a 76-year-old -[place] female with a previous medical history significant for diabetes mellitus type 1 with diabetic polyneuropathy, history of hypertension and hypertensive cardio vascular disease, hyperlipidemia, history of peripheral arterial occlusive disease, history of narcolepsy, history of anxiety and depressive disorder, patient presented to the emergency de partment at [facility] because of hypoglycemic episodes the patient did receive 2 injection of short acting insulin 24 units at a time, and her blood sugar dropped into the low 40s, patient did receive 1 amp of D50 and her blood glucose level went up again and then went back down again she did receive another amp and she was placed on D5 half-normal seen 75 mL an hour and eventually she went up to 304, eventually she was taken off her IV fluid and she was started back on her regular insulin with Lantus 12 units at bedtime along with Humalog 6 units before each meal 3 times every day, patient will be admitted to the hospital for observation for the next 24 hours. Review of systems: Constitutional: No fever, no chills, no night sweats. No weight change. Reports weakness, reports fatigue. No daytime sleepiness. EENT: No headache. No blurred vision or double vision, no loss of vision. No dizziness. No nasal drainage or congestion. No epistaxis. No sore throat. Lungs: No shortness of breath, cough, no sputum production. Reports wheezing. Cardiovascular: Reported chest pain, no lower extremity edema. Reported palpitations. No paroxysmal nocturnal dyspnea. No orthopnea. No lightheadedness or dizziness. No syncopal episodes. Abdominal: No abdominal pain. No nausea, vomiting. No diarrhea. No constipation. No bloody or tarry stools. No loss of appetite. Genitourinary: No dysuria, increased frequency, urgency. No urinary retention. Musculoskeletal: No myalgias. No muscle weakness, no gait dysfunction, no frequent falls. No back pain. No neck pain. Integumentary: Reports wound to right foot, no lesions. No rash or pruritus. No unusual bruising. No change in hair or nails. Neurologic: No aphasia. No facial droop. No change in mentation. No head injury. No headache. No paralysis. No paresthesia. Psychiatric: No depression. No anxiety. Endocrine: Reports abnormal blood sugars. No weight change. Reports thirst. Past medical history: 1. Diabetes mellitus type 1. 2. Hypertension and hypertensive cardiovascular disease . 3. Hyperlipidemia. 4. Coronary artery disease. 5. Peripheral artery occlusive disease. 6. Narcolepsy 7. Diabetic polyneuropathy. 8. Anxiety . 9. Depression. Past surgical history : 1. Appendectomy. 2. Cholecystectomy. 3. Total hysterectomy. 4. Tubal ligation. 5. Left heart catheterization with PCI . 6. Bilateral carpal tunnel release. 7. Bilateral cataract surgery. 8. EGD/colonoscopy. 9. left breast biopsy benign. Social history: . Patient used to smoke a pack every day she smoked for many years and she quit many years ago, she denies any alcohol ingestion, she denies any drug use or abuse, sugars along that she has her grandson who takes care of her. Family history: Mother at age of 75 from hypertension and seizure disorder, father at age 58 from acute renal failure and he was an alcoholic, patient has 2 sons no major medical problems. Physical examination: Gen: This is a 74-year-old female. Patient is resting in bed and appears to be comfortable and in no acute distress. HEENT: Head is atraumatic, normocephalic. Pupils equal, round. Sclerae is anicteric. NECK: Supple. No JVD. No lymphadenopathy. No thyromegaly. LUNGS: Clear to auscultation. No wheezes or rhonchi. No intercostal retractions. HEART: First heart sound is depressed, second heart sound is normal, there is a 2/6 systolic ejection murmur at the left sternal border. ABDOMEN: Soft. Bowel sounds are present. No masses. No tenderness. EXTREMITIES: No pedal edema. No calf tenderness. Dorsalis pedis +2 bilate rally. NEUROLOGICAL: Patient is awake, alert and oriented x3. Cranial nerves 2 through 12 are grossly intact. Assessment and plan: 1. Hypoglycemic episode secondary to subcutaneous use of Humalog, patient did receive 2 A of D50 in the emergency department and she was placed on D5 half- normal however her blood glucose level right now is 304 she will be taken off or IV glucose, she will be started back on her Lantus 12 units at bedtime along with the Humalog 6 units before each meal 3 times every day, monitor the patient blood glucose level very closely. 2. History of uncontrolled diabetes mellitus type 1. Continue patient on Lantus 12 units at bedtime along with the Humalog 6 units before each meal 3 times every day, patient does have brittle diabetes and she has been under the care of Dr. Saldaña from endocrinology . 3. History of CAD post-PCI. Continue patient on aspirin 81 g once every day, carvedilol 12.5 minute gram orally twice every day, losartan 50 mg orally twice every day, Crestor 10 mg orally once every day. 4... History of hypertension and hypertensive cardio vascular disease. Continue losartan 50 minute gram orally twice every day, Coreg 12.5 mg orally twice every day, continue hydralazine 50 mg orally twice every day. 5. Hyperlipidemia. Continue low-cholesterol diet, continue Crestor 10 mg orally once every day, keep LDL cholesterol 55-70. 6. History of constipation. Continue with current bowel care. 7. History of narcolepsy. Patient was not able to tolerate medications per he 8. PAD. Continue aspirin 81 mg once every day, continue Crestor 10 mg orally once every day. 9. Diabetic polyneuropathy. Patient is intolerant of gabapentin. 10. Vitamin D deficiency. Continue vitamin D supplement 2000 units once every day. 11. History of DVT of the left lower extremity. Resolved. 11. Osteoarthritis. Continue Tylenol, avoid anti-inflammatory medication. 12. Anemia with positive occult blood. Patient will need to have an EGD and colonoscopy as an outpatient . Patient will be admitted to the hospital for a minimum of 2 night stay. DISCHARGE PLAN home Past Medical History Past Medical History: Coronary Artery Disease (CAD), Diabetes Mellitus, Deep Vein Thrombosis (DVT), GERD/Reflux, Hyperlipidemia, Hypertension, Osteoarthritis (OA), Vascular Disorder Additional Past Medical History / Comment(s): IDDM type I with diabetic neuropathy, narcolepsy, DVTs L lower extremity, vertigo occasionally, low back pian with bilateral sciatica, PAD, pneumothorax when pt was in her 20s with chest tube, constipation, bronchitis. The patient also had a infection will COVID 19 on 06/28/2019 from which she recovered. History of Any Multi-Drug Resistant Organisms: None Reported Past Surgical History: Appendectomy, Cholecystectomy, Heart Catheterization With Stent, Hysterectomy, Tubal Ligation Additional Past Surgical History / Comment(s): PCI/stent, ectopic pregnancies with eventual total hysterectomy, EGD, colonoscopy, L breast biopsy-benign, bilateral carpal tunnel release, bilateral eyes laser surgery/lens. Past Anesthesia/Blood Transfusion Reactions: Previous Problems w/ Anesthesia, Postoperative Nausea & Vomiting (PONV) Additional Past Anesthesia/Blood Transfusion Reaction / Comment(s): PT STATES HER AND HER FAMILY HAVE DIFFICULTY WAKING UP Date of Last Stent Placement:: Past Psychological History: No Psychological Hx Reported Smoking Status: Former smoker Past Alcohol Use History: None Reported Past Drug Use History: None Reported - Past Family History Mother Family Medical History: Hypertension, Seizure Disorder Additional Family Medical History / Comment(s): Mother at age 75 Father Family Medical History: Renal Disease Additional Family Medical History / Comment(s): Father at age 58 from acute renal failure and he was an alcoholic. Son(s) Family Medical History: No Reported History Additional Family Medical History / Comment(s): Patient has 2 sons with no major medical problems. Medications and Allergies Home Medications Medication Instructions Recorded Confirmed Type Insulin Aspart [NovoLOG Flexpen] See Protocol SQ AC-TID 06/26/19 05/24/20 History Aspirin 81 mg PO DAILY chew 06/30/19 05/24/20 Rx Cholecalciferol [Vitamin D3 (25 25 mcg PO DAILY 01/04/20 05/24/20 History Mcg = 1000 Iu)] Losartan Potassium [Cozaar] 50 mg PO BID 01/04/20 05/24/20 History Carvedilol [Coreg] 12.5 mg PO BID 04/15/20 05/24/20 History Insulin Aspart [NovoLOG Flexpen] 6 unit SQ AC-TID 04/15/20 05/24/20 History hydrALAZINE HCL [Apresoline] 50 mg PO TID 04/15/20 05/24/20 History Furosemide [Lasix] 40 mg PO BID 05/24/20 05/24/20 History Insulin Glargine,Hum.rec.anlog 12 unit SQ HS 05/24/20 05/24/20 History [Lantus Solostar] Potassium Chloride ER [K-Dur 20] 20 meq PO AC-BID 05/24/20 05/24/20 History Cephalexin [Keflex] 500 mg PO Q8HR 7 Days #21 cap 05/26/20 Rx Allergies Allergy/AdvReac Type Severity Reaction Status Date / Time morphine AdvReac PASSES OUT Verified 05/24/20 15:59 nitroglycerin AdvReac PASSES OUT Verified 05/24/20 15:59 Sulfa (Sulfonamide AdvReac Itching Verified 05/24/20 15:59 Antibiotics) Physical Exam Vitals: Vital Signs Temp Pulse Resp BP Pulse Ox 05/24/20 17:29 78 18 178/99 100 05/24/20 15:18 57 L 18 163/109 100 05/24/20 15:09 56 L 18 146/89 100 05/24/20 14:42 62 18 147/79 96 05/24/20 14:27 97.6 F 76 18 131/73 98 05/24/20 14:06 72 18 136/76 96 05/24/20 13:05 76 18 131/73 98 05/24/20 11:48 97.6 F 65 20 109/60 Intake and Output 05/24/20 05/24/20 05/24/20 06:59 14:59 22:59 Other: Weight 63.503 kg Results CBC & Chem 7: 05/24/20 12:09 05/24/20 12:09 Labs: Abnormal Lab Results - Last 24 Hours (Table) 05/24/20 05/24/20 05/24/20 Range/Units 12:09 12:09 13:02 RBC 3.64 L (3.80-5.40) m/uL Hgb 10.6 L (11.4-16.0) gm/dL Hct 32.3 L (34.0-46.0) % Lymphocytes # 0.9 L (1.0-4.8) k/uL Carbon Dioxide 32 H (22-30) mmol/L BUN 29 H (7-17) mg/dL Creatinine 1.10 H (0.52-1.04) mg/dL Glucose 61 L (74-99) mg/dL POC Glucose (mg/dL) 186 H (75-99) mg/dL Urine Appearance (Clear) Urine WBC (0-5) /hpf Urine Bacteria (None) /hpf Hyaline Casts (0-2) /lpf Urine Mucus (None) /hpf 05/24/20 05/24/20 05/24/20 Range/Units 13:25 14:02 14:04 RBC (3.80-5.40) m/uL Hgb (11.4-16.0) gm/dL Hct (34.0-46.0) % Lymphocytes # (1.0-4.8) k/uL Carbon Dioxide (22-30) mmol/L BUN (7-17) mg/dL Creatinine (0.52-1.04) mg/dL Glucose (74-99) mg/dL POC Glucose (mg/dL) 60 L 26 L (75-99) mg/dL Urine Appearance Cloudy H (Clear) Urine WBC 6 H (0-5) /hpf Urine Bacteria Rare H (None) /hpf Hyaline Casts 4 H (0-2) /lpf Urine Mucus Rare H (None) /hpf 05/24/20 05/24/20 05/24/20 Range/Units 14:06 14:21 14:42 RBC (3.80-5.40) m/uL Hgb (11.4-16.0) gm/dL Hct (34.0-46.0) % Lymphocytes # (1.0-4.8) k/uL Carbon Dioxide (22-30) mmol/L BUN (7-17) mg/dL Creatinine (0.52-1.04) mg/dL Glucose (74-99) mg/dL POC Glucose (mg/dL) 22 L 123 H 51 L (75-99) mg/dL Urine Appearance (Clear) Urine WBC (0-5) /hpf Urine Bacteria (None) /hpf Hyaline Casts (0-2) /lpf Urine Mucus (None) /hpf 05/24/20 05/24/20 05/24/20 Range/Units 15:08 15:34 17:28 RBC (3.80-5.40) m/uL Hgb (11.4-16.0) gm/dL Hct (34.0-46.0) % Lymphocytes # (1.0-4.8) k/uL Carbon Dioxide (22-30) mmol/L BUN (7-17) mg/dL Creatinine (0.52-1.04) mg/dL Glucose (74-99) mg/dL POC Glucose (mg/dL) 42 L 142 H 162 H (75-99) mg/dL Urine Appearance (Clear) Urine WBC (0-5) /hpf Urine Bacteria (None) /hpf Hyaline Casts (0-2) /lpf Urine Mucus (None) /hpf
[2020-05-25] MEDS: hydrALAZINE HCL 50 MG TAB PO SCH ×3 (08:11→20:04)
[2020-05-25] MEDS: FUROSEMIDE 40 MG TAB PO SCH ×2 (08:11→16:23)
[2020-05-25] MEDS: carvediloL 12.5 MG TAB PO SCH ×2 (08:11→20:04)
[2020-05-25] MEDS: HEPARIN SODIUM,PORCINE/PF 5,000 UNIT/0.5 ML SYRINGE SQ SCH ×3 (08:11→20:04)
[2020-05-25] MEDS: POTASSIUM CHLORIDE ER 20 MEQ TAB.ER PO SCH ×2 (08:11→17:46)
[2020-05-25] MEDS: CHOLECALCIFEROL 25 MCG (1000 IU) TABLET PO SCH (08:11)
[2020-05-25] MEDS: ASPIRIN 81 MG PO SCH (08:11)
[2020-05-25] MEDS: LOSARTAN 50 MG TAB PO SCH ×2 (08:11→20:04)
[2020-05-25 09:08] LABS: Glucose,Whole Blood 236 mg/dL (75-99)
[2020-05-25 11:11] LABS: Glucose,Whole Blood 256 mg/dL (75-99)
[2020-05-25 12:30] VITALS: BMI 21.2
[2020-05-25 13:17] LABS: Glucose,Whole Blood 284 mg/dL (75-99)
--- NOTE | 2020-05-25 16:24 | P.GSCN ---
History of Present Illness History of present illness: 70-year-old -[place]namese female I was consulted for macerated blister plantar aspect of the right foot. Patient history of diabetes hypertension anxiety disorder Neck examination neck supple no bruit appreciated Chest is clear first and second sound normal Abdomen soft nontender Vascular femorals are 1+ bilateral PTDP not palpable patient has a blister which is macerated on the plantar aspect the right foot measurement is 1.5 x 1 cm Plan is excision of the macerated skin and local wound care Past Medical History Past Medical History: Coronary Artery Disease (CAD), Diabetes Mellitus, Deep Vein Thrombosis (DVT), GERD/Reflux, Hyperlipidemia, Hypertension, Osteoarthritis (OA), Vascular Disorder Additional Past Medical History / Comment(s): IDDM type I with diabetic neuropathy, narcolepsy, DVTs L lower extremity, vertigo occasionally, low back pian with bilateral sciatica, PAD, pneumothorax when pt was in her 20s with chest tube, constipation, bronchitis. The patient also had a infection will COVID 19 on 06/28/2019 from which she recovered. History of Any Multi-Drug Resistant Organisms: None Reported Past Surgical History: Appendectomy, Cholecystectomy, Heart Catheterization With Stent, Hysterectomy, Tubal Ligation Additional Past Surgical History / Comment(s): PCI/stent, ectopic pregnancies with eventual total hysterectomy, EGD, colonoscopy, L breast biopsy-benign, bilateral carpal tunnel release, bilateral eyes laser surgery/lens. Past Anesthesia/Blood Transfusion Reactions: Previous Problems w/ Anesthesia, Postoperative Nausea & Vomiting (PONV) Additional Past Anesthesia/Blood Transfusion Reaction / Comm: PT STATES HER AND HER FAMILY HAVE DIFFICULTY WAKING UP Date of Last Stent Placement:: Past Psychological History: No Psychological Hx Reported Smoking Status: Former smoker Past Alcohol Use History: None Reported Past Drug Use History: None Reported - Past Family History Mother Family Medical History: Hypertension, Seizure Disorder Additional Family Medical History / Comment(s): Mother at age 75 Father Family Medical History: Renal Disease Additional Family Medical History / Comment(s): Father at age 58 from acute renal failure and he was an alcoholic. Son(s) Family Medical History: No Reported History Additional Family Medical History / Comment(s): Patient has 2 sons with no major medical problems. Medications and Allergies Home Medications Medication Instructions Recorded Confirmed Type Insulin Aspart [NovoLOG Flexpen] See Protocol SQ AC-TID 06/26/19 05/24/20 History Aspirin 81 mg PO DAILY chew 06/30/19 05/24/20 Rx Cholecalciferol [Vitamin D3 (25 25 mcg PO DAILY 01/04/20 05/24/20 History Mcg = 1000 Iu)] Losartan Potassium [Cozaar] 50 mg PO BID 01/04/20 05/24/20 History Carvedilol [Coreg] 12.5 mg PO BID 04/15/20 05/24/20 History Insulin Aspart [NovoLOG Flexpen] 6 unit SQ AC-TID 04/15/20 05/24/20 History hydrALAZINE HCL [Apresoline] 50 mg PO TID 04/15/20 05/24/20 History Furosemide [Lasix] 40 mg PO BID 05/24/20 05/24/20 History Insulin Glargine,Hum.rec.anlog 12 unit SQ HS 05/24/20 05/24/20 History [Lantus Solostar] Potassium Chloride ER [K-Dur 20] 20 meq PO AC-BID 05/24/20 05/24/20 History Allergies Allergy/AdvReac Type Severity Reaction Status Date / Time morphine AdvReac PASSES OUT Verified 05/24/20 15:59 nitroglycerin AdvReac PASSES OUT Verified 05/24/20 15:59 Sulfa (Sulfonamide AdvReac Itching Verified 05/24/20 15:59 Antibiotics) Surgical - Exam Vital Signs Temp Pulse Resp BP 97.6 F 65 20 109/60 05/24/20 11:48 05/24/20 11:48 05/24/20 11:48 05/24/20 11:48 Results - Labs 05/24/20 12:09 05/24/20 12:09 Abnormal Lab Results - Last 24 Hours (Table) 05/24/20 05/24/20 05/24/20 Range/Units 13:25 17:28 19:24 POC Glucose (mg/dL) 162 H 306 H (75-99) mg/dL Urine Appearance Cloudy H (Clear) Urine WBC 6 H (0-5) /hpf Urine Bacteria Rare H (None) /hpf Hyaline Casts 4 H (0-2) /lpf Urine Mucus Rare H (None) /hpf 05/24/20 05/24/20 05/25/20 Range/Units 20:14 22:32 00:21 POC Glucose (mg/dL) 328 H 408 H 375 H (75-99) mg/dL Urine Appearance (Clear) Urine WBC (0-5) /hpf Urine Bacteria (None) /hpf Hyaline Casts (0-2) /lpf Urine Mucus (None) /hpf 05/25/20 05/25/20 05/25/20 Range/Units 02:21 04:37 06:40 POC Glucose (mg/dL) 288 H 158 H 119 H (75-99) mg/dL Urine Appearance (Clear) Urine WBC (0-5) /hpf Urine Bacteria (None) /hpf Hyaline Casts (0-2) /lpf Urine Mucus (None) /hpf 05/25/20 05/25/20 05/25/20 Range/Units 09:06 11:09 13:16 POC Glucose (mg/dL) 236 H 256 H 284 H (75-99) mg/dL Urine Appearance (Clear) Urine WBC (0-5) /hpf Urine Bacteria (None) /hpf Hyaline Casts (0-2) /lpf Urine Mucus (None) /hpf
--- NOTE | 2020-05-25 16:26 | P.PCN ---
Description of Procedure: Preoperative diagnoses is macerated skin plantar aspect of the right foot measurement is one by one and half CM Posterior same patient has history of neuropathy Procedure right foot was prepped and draped applied sterile manner using sharp scissor we excised the macerated skin there was no deep tissue involvement the specimen sent for culture no active bleeding was noted Aquacel silver applied to the wound if patient goes home I we can follow in the wound clinic on Saturday since patient is a diabetic and Dr. Ivana ruiz start some Keflex by mouth on discharge
[2020-05-25 17:42] LABS: Glucose,Whole Blood 99 mg/dL (75-99)
[2020-05-25 19:53] LABS: Glucose,Whole Blood 264 mg/dL (75-99)
[2020-05-25] MEDS: INSULIN DETEMIR (LEVEMIR) 100 UNIT/ML SYR SQ SCH (20:03)
[2020-05-26 07:06] LABS: Glucose,Whole Blood 113 mg/dL (75-99)
[2020-05-26] MEDS: POTASSIUM CHLORIDE ER 20 MEQ TAB.ER PO SCH (07:11)
[2020-05-26] MEDS: LOSARTAN 50 MG TAB PO SCH (07:11)
[2020-05-26] MEDS: ASPIRIN 81 MG PO SCH (07:11)
[2020-05-26] MEDS: carvediloL 12.5 MG TAB PO SCH (07:11)
[2020-05-26] MEDS: CHOLECALCIFEROL 25 MCG (1000 IU) TABLET PO SCH (07:11)
[2020-05-26] MEDS: INSULIN ASPART (NovoLOG) 100 UNIT/ML VIAL SQ SCH (07:11)
[2020-05-26] MEDS: HEPARIN SODIUM,PORCINE/PF 5,000 UNIT/0.5 ML SYRINGE SQ SCH (07:11)
[2020-05-26] MEDS: FUROSEMIDE 40 MG TAB PO SCH (07:11)
[2020-05-26] MEDS: hydrALAZINE HCL 50 MG TAB PO SCH (07:11)
[2020-05-26 07:16] VITALS: BP 206/86; PULSE 74; RESP 16; TEMP 98.3
--- NOTE | 2020-05-26 10:27 | P.DS ---
Providers Date of admission: 05/24/20 15:22 Expected date of discharge: 05/26/20 Attending physician: Mary Heath Consults: 05/25/20 08:57 Consult Physician Routine Consulting Provider: Garcia Rodrigez Consult Reason/Comments: wound plantar right foot Do you want consulting provider notified?: Yes Primary care physician: Mary Heath Hospital Course: HISTORY OF PRESENT ILLNESS: This is a 76-year-old -Citizen Of [place] female with a previous medical history significant for diabetes mellitus type 1 with diabetic polyneuropathy, history of hypertension and hypertensive cardio vascular disease, hyperlipidemia, history of peripheral arterial occlusive disease, history of narcolepsy, history of anxiety and depressive disorder, patient presented to the emergency department at [facility] because of hypoglycemic episodes the patient did receive 2 injection of short acting insulin 24 units at a time, and her blood sugar dropped into the low 40s, patient did receive 1 amp of D50 and her blood glucose level went up again and then went back down again she did receive another amp and she was placed on D5 half-normal seen 75 mL an hour and e ventually she went up to 304, eventually she was taken off her IV fluid and she was started back on her regular insulin with Lantus 12 units at bedtime along with Humalog 6 units before each meal 3 times every day, patient will be admitted to the hospital for observation for the next 24 hours. 05/26: Blood sugars overnight have been running between 99 and 264. This morning's blood sugar 113. Patient denies having any nausea or vomiting. She denies any lightheadedness or dizziness. No chest pain or shortness of breath. She states she is tolerating her diet and has no nausea. She has been seen by Dr. Rodrigez and he recommends Keflex and follow-up in the wound center with him in the next week. Appointment has been arranged on June 06. Patient will be discharged home today in stable condition. Assessment and plan: 1. Hypoglycemic episode secondary to subcutaneous use of Humalog, resolved. 2. History of uncontrolled diabetes mellitus type 1. 3. History of CAD post-PCI. 4. History of hypertension and hypertensive cardiovascular disease. 5. Hyperlipidemia. 6. History of constipation. 7. History of narcolepsy. 8. PAD. 9. Diabetic polyneuropathy. 10. Vitamin D deficiency. 11. History of DVT of the left lower extremity. Resolved. 11. Osteoarthritis and generalized. 12. Anemia with positive occult blood. Patient will need to have an EGD and colonoscopy as an outpatient . DISCHARGE PLAN Home Impression and plan of care have been directed as dictated by the signing physician. Faith Camarillo nurse practitioner acting as scribe for signing physician. Patient Condition at Discharge: Stable Plan - Discharge Summary Discharge Rx Participant: Yes New Discharge Prescriptions: New Cephalexin [Keflex] 500 mg PO Q8HR 7 Days #21 cap Continue Insulin Aspart [NovoLOG Flexpen] See Protocol SQ AC-TID Aspirin 81 mg PO DAILY chew Losartan Potassium [Cozaar] 50 mg PO BID Cholecalciferol [Vitamin D3 (25 Mcg = 1000 Iu)] 25 mcg PO DAILY hydrALAZINE HCL [Apresoline] 50 mg PO TID Insulin Aspart [NovoLOG Flexpen] 6 unit SQ AC-TID Carvedilol [Coreg] 12.5 mg PO BID Potassium Chloride ER [K-Dur 20] 20 meq PO AC-BID Furosemide [Lasix] 40 mg PO BID Insulin Glargine,Hum.rec.anlog [Lantus Solostar] 12 unit SQ HS Discharge Medication List Insulin Aspart [NovoLOG Flexpen] See Protocol SQ AC-TID 06/26/19 [History] Aspirin 81 mg PO DAILY chew 06/30/19 [Rx] Cholecalciferol [Vitamin D3 (25 Mcg = 1000 Iu)] 25 mcg PO DAILY 01/04/20 [History] Losartan Potassium [Cozaar] 50 mg PO BID 01/04/20 [History] Carvedilol [Coreg] 12.5 mg PO BID 04/15/20 [History] Insulin Aspart [NovoLOG Flexpen] 6 unit SQ AC-TID 04/15/20 [History] hydrALAZINE HCL [Apresoline] 50 mg PO TID 04/15/20 [History] Furosemide [Lasix] 40 mg PO BID 05/24/20 [History] Insulin Glargine,Hum.rec.anlog [Lantus Solostar] 12 unit SQ HS 05/24/20 [History] Potassium Chloride ER [K-Dur 20] 20 meq PO AC-BID 05/24/20 [History] Cephalexin [Keflex] 500 mg PO Q8HR 7 Days #21 cap 05/26/20 [Rx] Follow up Appointment(s)/Referral(s): [facility] [NON-STAFF] - 06/06/20 12:45 pm (with Doctor Preet) Mary Heath MD [Primary Care Provider] - 1 Week Patient Instructions/Handouts: Diabetic Foot Ulcers (ED) Discharge Disposition: HOME SELF-CARE
== END 2020-05-26 11:20 | disposition home or self-care (01) ==
LOC: EC 11:42 → 1SOBS 15:22 → 6NMEDSUR 16:09
PROVIDERS: ADMIT Internal Medicine; ATTEND Internal Medicine
DX: E10.649 Type 1 diabetes mellitus with hypoglycemia without coma (principal); T38.3X5A Adverse effect of insulin and oral hypoglycemic [antidiabetic] drugs, initial encounter; E10.621 Type 1 diabetes mellitus with foot ulcer; L97.419 Non-pressure chronic ulcer of right heel and midfoot with unspecified severity; E10.42 Type 1 diabetes mellitus with diabetic polyneuropathy; E78.5 Hyperlipidemia, unspecified; I11.9 Hypertensive heart disease without heart failure; F32.9 Major depressive disorder, single episode, unspecified; F41.9 Anxiety disorder, unspecified; G47.419 Narcolepsy without cataplexy; E10.51 Type 1 diabetes mellitus with diabetic peripheral angiopathy without gangrene; I25.10 Atherosclerotic heart disease of native coronary artery without angina pectoris; K59.00 Constipation, unspecified; E55.9 Vitamin D deficiency, unspecified; M19.90 Unspecified osteoarthritis, unspecified site; D64.9 Anemia, unspecified; S90.821A Blister (nonthermal), right foot, initial encounter; K21.9 Gastro-esophageal reflux disease without esophagitis; M54.42 Lumbago with sciatica, left side; M54.41 Lumbago with sciatica, right side; L97.411 Non-pressure chronic ulcer of right heel and midfoot limited to breakdown of skin; Z90.710 Acquired absence of both cervix and uterus; Z79.4 Long term (current) use of insulin; Z79.82 Long term (current) use of aspirin; Z79.899 Other long term (current) drug therapy; Z88.2 Allergy status to sulfonamides; Z88.5 Allergy status to narcotic agent; Z88.8 Allergy status to other drugs, medicaments and biological substances; Z87.891 Personal history of nicotine dependence; Z86.79 Personal history of other diseases of the circulatory system; Z90.49 Acquired absence of other specified parts of digestive tract; Z86.718 Personal history of other venous thrombosis and embolism; Z87.09 Personal history of other diseases of the respiratory system; Z98.51 Tubal ligation status; Z98.42 Cataract extraction status, left eye; Z98.41 Cataract extraction status, right eye; Z96.1 Presence of intraocular lens; Z86.16 Personal history of COVID-19; Z20.822 Contact with and (suspected) exposure to COVID-19; Z95.5 Presence of coronary angioplasty implant and graft; Z82.0 Family history of epilepsy and other diseases of the nervous system; Z82.49 Family history of ischemic heart disease and other diseases of the circulatory system; Z81.1 Family history of alcohol abuse and dependence; Z84.1 Family history of disorders of kidney and ureter
CPT/HCPCS: 96376 ×2; 96365; 96366; 96372 ×3; 99284; 36415; 93005; 80053; 84484; 85025; 85610; 85730; 81001; 87070; 87205; 87101; 87077; 87186; 87635; G0378 ×4; J1644 ×3

== ENCOUNTER 2020-06-08 12:17 | Emergency (ER) | payer MEDICARE, OTHER ==
[2020-06-08 12:23] VITALS: RESP 18; TEMP 98.4
[2020-06-08 13:11] LABS: HCT 29.8 % (34.0-46.0); HGB 9.4 gm/dL (11.4-16.0); MCH 28.1 pg (25.0-35.0); MCHC 31.4 g/dL (31.0-37.0); MCV 89.4 fL (80.0-100.0); Mean Platelet Volume 9.2; Platelet Count 249 k/uL (150-450); RBC 3.34 m/uL (3.80-5.40); RDW 14.2 % (11.5-15.5); WBC 2.9 k/uL (3.8-10.6)
[2020-06-08 13:19] LABS: Albumin 3.6 g/dL (3.5-5.0); Calcium 9.3 mg/dL (8.4-10.2); Potassium 3.9 mmol/L (3.5-5.1); Total Bilirubin 0.4 mg/dL (0.2-1.3); Total Protein 6.2 g/dL (6.3-8.2)
--- NOTE | 2020-06-08 13:20 | ED ---
General Adult HPI - General Chief complaint: Recheck/Abnormal Lab/Rx Stated complaint: Hypertension Time Seen by Provider: 06/08/20 12:24 Source: patient, EMS, RN notes reviewed, old records reviewed Mode of arrival: EMS Limitations: no limitations - History of Present Illness Initial comments: 70-year-old female presenting with an episode of low blood pressure. Patient has history of hypertension and is on multiple medications for blood pressure. She states she took these medications this morning and was rechecking her blood pressure. She noted that her systolic blood pressure was 70. She denied associated chest pain or dyspnea. Denied lightheadedness. She denies fever. She is a type I diabetic and is currently following with wound care for a nonhealing ulcer on the sole of her right foot. She denies any increased pain or swelling, no erythema. No fever. No vomiting. No diarrhea. EMS was called and the patient was transported to the emergency department with stable blood pressure during transport. She is completely asymptomatic. - Related Data Home Medications Medication Instructions Recorded Confirmed Insulin Aspart [NovoLOG Flexpen] See Protocol SQ AC-TID 06/26/19 06/08/20 Cholecalciferol [Vitamin D3 (25 25 mcg PO DAILY 01/04/20 06/08/20 Mcg = 1000 Iu)] Losartan Potassium [Cozaar] 100 mg PO BID 01/04/20 06/08/20 Carvedilol [Coreg] 25 mg PO BID 04/15/20 06/08/20 Insulin Aspart [NovoLOG Flexpen] 6 unit SQ AC-TID 04/15/20 06/08/20 hydrALAZINE HCL [Apresoline] 100 mg PO TID 04/15/20 06/08/20 Furosemide [Lasix] 40 mg PO BID 05/24/20 06/08/20 Insulin Glargine,Hum.rec.anlog 12 unit SQ HS 05/24/20 06/08/20 [Lantus Solostar] Potassium Chloride ER [K-Dur 20] 20 meq PO AC-BID 05/24/20 06/08/20 Previous Rx's Medication Instructions Recorded Aspirin 81 mg PO DAILY chew 06/30/19 Cephalexin [Keflex] 500 mg PO Q8HR 7 Days #21 cap 05/26/20 Allergies Allergy/AdvReac Type Severity Reaction Status Date / Time morphine AdvReac PASSES OUT Verified 06/08/20 14:09 nitroglycerin AdvReac PASSES OUT Verified 06/08/20 14:09 Sulfa (Sulfonamide AdvReac Itching Verified 06/08/20 14:09 Antibiotics) Review of Systems ROS Statement: Those systems with pertinent positive or pertinent negative responses have been documented in the HPI. ROS Other: All systems not noted in ROS Statement are negative. Past Medical History Past Medical History: Coronary Artery Disease (CAD), Diabetes Mellitus, Deep Vein Thrombosis (DVT), GERD/Reflux, Hyperlipidemia, Hypertension, Osteoarthritis (OA), Vascular Disorder Additional Past Medical History / Comment(s): IDDM type I with diabetic neuropathy, narcolepsy, DVTs L lower extremity, vertigo occasionally, low back pian with bilateral sciatica, PAD, pneumothorax when pt was in her 20s with chest tube, constipation, bronchitis. The patient also had a infection will COVID 19 on 06/28/2019 from which she recovered. History of Any Multi-Drug Resistant Organisms: None Reported Past Surgical History: Appendectomy, Cholecystectomy, Heart Catheterization With Stent, Hysterectomy, Tubal Ligation Additional Past Surgical History / Comment(s): PCI/stent, ectopic pregnancies with eventual total hysterectomy, EGD, colonoscopy, L breast biopsy-benign, bilateral carpal tunnel release, bilateral eyes laser surgery/lens. Past Anesthesia/Blood Transfusion Reactions: Previous Problems w/ Anesthesia, Postoperative Nausea & Vomiting (PONV) Additional Past Anesthesia/Blood Transfusion Reaction / Comment(s): PT STATES HER AND HER FAMILY HAVE DIFFICULTY WAKING UP Date of Last Stent Placement:: Past Psychological History: No Psychological Hx Reported Smoking Status: Former smoker Past Alcohol Use History: None Reported Past Drug Use History: None Reported - Past Family History Mother Family Medical History: Hypertension, Seizure Disorder Additional Family Medical History / Comment(s): Mother at age 75 Father Family Medical History: Renal Disease Additional Family Medical History / Comment(s): Father at age 58 from acute renal failure and he was an alcoholic. Son(s) Family Medical History: No Reported History Additional Family Medical History / Comment(s): Patient has 2 sons with no major medical problems. General Exam Limitations: no limitations General appearance: alert, in no apparent distress Head exam: Present: atraumatic, normocephalic Eye exam: Present: normal appearance, PERRL ENT exam: Present: normal exam Neck exam: Present: normal inspection. Absent: tenderness, meningismus Respiratory exam: Present: normal lung sounds bilaterally. Absent: respiratory distress, wheezes Cardiovascular Exam: Present: regular rate, irregular rhythm GI/Abdominal exam: Present: soft. Absent: distended, tenderness, guarding Extremities exam: Present: normal inspection, normal capillary refill. Absent: pedal edema Neurological exam: Present: alert, oriented X3, CN II-XII intact. Absent: motor sensory deficit Psychiatric exam: Present: normal affect, normal mood Skin exam: Present: warm, dry, intact. Absent: cyanosis, diaphoretic Course Vital Signs 06/08/20 06/08/20 12:20 12:56 Temperature 98.4 F Pulse Rate 76 67 Respiratory 18 18 Rate Blood Pressure 152/83 145/81 O2 Sat by Pulse 97 98 Oximetry EKG Findings - EKG Comments: EKG Findings:: Sinus rhythm with possible ectopic atrial rhythm PVC, rate 69, NC interval 148, QRS duration 110, QTC 435 left axis, no ST segment elevation. Medical Decision Making - Medical Decision Making 70-year-old female presenting with an episode of low blood pressure which was asymptomatic. She had recently had her hydralazine increased from 50 mg 3 times daily to 100 mg 3 times daily. Patient's blood pressure remained stable while in the emergency department. She has a CBC showing a leukopenia and stable anemia. Her initial blood sugars 35 and the patient did admit to taking insulin and not eating. She said in the emergency department and her blood glucose is normalized. I discussed case with Dr. Heath who is familiar with this patient, will lower her hydralazine back to 50 mg 3 times daily and the patient will monitor blood pressure closely at home. - Lab Data Result diagrams: 06/08/20 12:51 06/08/20 12:51 Lab Results 06/08/20 06/08/20 06/08/20 Range/Units 12:51 12:51 13:04 WBC 2.9 L (3.8-10.6) k/uL RBC 3.34 L (3.80-5.40) m/uL Hgb 9.4 L (11.4-16.0) gm/dL Hct 29.8 L (34.0-46.0) % MCV 89.4 (80.0-100.0) fL MCH 28.1 (25.0-35.0) pg MCHC 31.4 (31.0-37.0) g/dL RDW 14.2 (11.5-15.5) % Plt Count 249 (150-450) k/uL MPV 9.2 Neutrophils % (Manual) 42 % Lymphocytes % (Manual) 39 % Monocytes % (Manual) 16 % Eosinophils % (Manual) 1 % Basophils % (Manual) 2 % Neutrophils # (Manual) 1.22 L (1.3-7.7) k/uL Lymphocytes # (Manual) 1.13 (1.0-4.8) k/uL Monocytes # (Manual) 0.46 (0-1.0) k/uL Eosinophils # (Manual) 0.03 (0-0.7) k/uL Basophils # (Manual) 0.06 (0-0.2) k/uL Nucleated RBCs 0 (0-0) /100 WBC Manual Slide Review Performed Sodium 141 (137-145) mmol/L Potassium 3.9 (3.5-5.1) mmol/L Chloride 104 (98-107) mmol/L Carbon Dioxide 30 (22-30) mmol/L Anion Gap 7 mmol/L BUN 32 H (7-17) mg/dL Creatinine 1.08 H (0.52-1.04) mg/dL Est GFR (CKD-EPI)AfAm 59 (>60 ml/min/1.73 sqM) Est GFR (CKD-EPI)NonAf 52 (>60 ml/min/1.73 sqM) Glucose 35 L* (74-99) mg/dL POC Glucose (mg/dL) (75-99) mg/dL POC Glu Release Coordinator ID Plasma Lactic Acid Celestino 1.1 (0.7-2.0) mmol/L Calcium 9.3 (8.4-10.2) mg/dL Magnesium 2.0 (1.6-2.3) mg/dL Total Bilirubin 0.4 (0.2-1.3) mg/dL AST 22 (14-36) U/L ALT 14 (4-34) U/L Alkaline Phosphatase 82 (38-126) U/L Total Protein 6.2 L (6.3-8.2) g/dL Albumin 3.6 (3.5-5.0) g/dL 06/08/20 06/08/2021 Range/Units 13:31 13:51 14:13 WBC (3.8-10.6) k/uL RBC (3.80-5.40) m/uL Hgb (11.4-16.0) gm/dL Hct (34.0-46.0) % MCV (80.0-100.0) fL MCH (25.0-35.0) pg MCHC (31.0-37.0) g/dL RDW (11.5-15.5) % Plt Count (150-450) k/uL MPV Neutrophils % (Manual) % Lymphocytes % (Manual) % Monocytes % (Manual) % Eosinophils % (Manual) % Basophils % (Manual) % Neutrophils # (Manual) (1.3-7.7) k/uL Lymphocytes # (Manual) (1.0-4.8) k/uL Monocytes # (Manual) (0-1.0) k/uL Eosinophils # (Manual) (0-0.7) k/uL Basophils # (Manual) (0-0.2) k/uL Nucleated RBCs (0-0) /100 WBC Manual Slide Review Sodium (137-145) mmol/L Potassium (3.5-5.1) mmol/L Chloride (98-107) mmol/L Carbon Dioxide (22-30) mmol/L Anion Gap mmol/L BUN (7-17) mg/dL Creatinine (0.52-1.04) mg/dL Est GFR (CKD-EPI)AfAm (>60 ml/min/1.73 sqM) Est GFR (CKD-EPI)NonAf (>60 ml/min/1.73 sqM) Glucose (74-99) mg/dL POC Glucose (mg/dL) 36 L 74 L 115 H (75-99) mg/dL POC Glu Release Coordinator ID Diana Hernandez Nicole Pauly, Nicole Plasma Lactic Acid Celestino (0.7-2.0) mmol/L Calcium (8.4-10.2) mg/dL Magnesium (1.6-2.3) mg/dL Total Bilirubin (0.2-1.3) mg/dL AST (14-36) U/L ALT (4-34) U/L Alkaline Phosphatase (38-126) U/L Total Protein (6.3-8.2) g/dL Albumin (3.5-5.0) g/dL Disposition Clinical Impression: Hypoglycemia, Hypertension Disposition: HOME SELF-CARE Condition: Fair Instructions (If sedation given, give patient instructions): Hypertension (ED), Hypoglycemia in a Person with Diabetes (ED) Additional Instructions: Please decrease hydralazine back to 50 mg 3 times daily. Please monitor blood glucose and blood pressure closely at home. Is patient prescribed a controlled substance at d/c from ED?: No Referrals: Mary Heath MD [Primary Care Provider] - 1-2 days Time of Disposition: 14:43
[2020-06-08 13:37] LABS: Basophils # (M) 0.06 k/uL (0-0.2); Eosinophils # (M) 0.03 k/uL (0-0.7); Lymphocytes # (M) 1.13 k/uL (1.0-4.8); Monocytes # (M) 0.46 k/uL (0-1.0); Neutrophils # (M) 1.22 k/uL (1.3-7.7); Neutrophils % (M) 42 %; Nucleated Red Blood Cells 0 /100 WBC (0-0); Total Cells Counted 100
[2020-06-08 13:42] LABS: Glucose,Whole Blood 36 mg/dL (75-99)
[2020-06-08 13:52] LABS: Glucose,Whole Blood 74 mg/dL (75-99)
[2020-06-08 14:14] LABS: Glucose,Whole Blood 115 mg/dL (75-99)
[2020-06-08 14:54] VITALS: BP 143/70; PULSE 70
== END 2020-06-08 15:44 | disposition home or self-care (01) ==
LOC: EC 12:17
DX: I10 Essential (primary) hypertension (principal); E10.649 Type 1 diabetes mellitus with hypoglycemia without coma; I25.10 Atherosclerotic heart disease of native coronary artery without angina pectoris; K21.9 Gastro-esophageal reflux disease without esophagitis; E78.5 Hyperlipidemia, unspecified; E10.40 Type 1 diabetes mellitus with diabetic neuropathy, unspecified; E10.51 Type 1 diabetes mellitus with diabetic peripheral angiopathy without gangrene; Z79.4 Long term (current) use of insulin; Z79.02 Long term (current) use of antithrombotics/antiplatelets; Z79.899 Other long term (current) drug therapy; Z88.2 Allergy status to sulfonamides; Z88.5 Allergy status to narcotic agent; Z88.8 Allergy status to other drugs, medicaments and biological substances; Z87.891 Personal history of nicotine dependence; Z86.718 Personal history of other venous thrombosis and embolism; Z95.5 Presence of coronary angioplasty implant and graft
CPT/HCPCS: 36415; 80053; 83605; 83735; 85025; 93005; 99284

== ENCOUNTER 2020-08-15 10:53 | Inpatient (IN) | payer MEDICARE, OTHER ==
[2020-08-15 13:26] LABS: Glucose,Whole Blood 274 mg/dL (75-99)
[2020-08-15] MEDS ORDERED: ONDANSETRON 4 MG/2 ML VIAL IVP PRN (15:00)
[2020-08-15] MEDS: SODIUM CHLORIDE 0.9% 1,000 ML IV SCH (15:51)
--- NOTE | 2020-08-15 15:53 | P.HPIM ---
History of Present Illness H&P Date: 08/15/20 Chief Complaint: Right hip fracture HISTORY OF PRESENT ILLNESS: This is a 70 -year-old -[place] female with a previous medical history significant for hypertension and hypertensive cardiovascular disease, hyperlipidemia, diabetes mellitus type 1 with diabetic polyneuropathy, PAD, CAD post PCI in 2010 ,history of narcolepsy, history of osteoarthritis, patient was recently hospitalized at [facility] about few days ago after she was admitted for diabetic ketoacidosis with blood glucose level of 668, she was treated with insulin drip as well as IV fluid resuscitation after she was found to have an acute kidney injury and she was discharged home on Lantus 16 units at bedtime along with the Humalog 6 units with each meal plus the sliding scale insulin apparently the patient fell at home while she was going down the basement when she missed her steps and landed on the right side of her body developed to have a significant pain in the right hip she could not move around, she eventually managed to get some help, patient ended up getting transferred to [facility] where she was evaluated by computed tomography scan of the hip and an x-ray that showed right intertrochanteric hip fracture she was admitted under my service and was supposed to be seen in consultation by Dr. Bear however for some reason the patient declined to be seen by an orthopedic surgeon outside of [place] and she elected to be transferred to [facility] for evaluation by orthopedic surgery locally patient was transferred as a direct admission from the emergency department at [facility] to [facility] consult and orthopedic on-call. REVIEW OF SYSTEMS: Constitutional: No documented fever, no chills, no night sweats. No weight change. No weakness, fatigue or lethargy. No daytime sleepiness. HEENT: No headache. No blurred vision or double vision, no loss of vision. No loss of Hearing, no ringing in the ears, no dizziness. No nasal drainage or congestion. No epistaxis. No sore throat. Lungs: No shortness of breath, no cough, no sputum production. No wheezing. Reports dyspnea with activity. Cardiovascular: No chest pain, no lower extremity edema. No palpitations. No paroxysmal nocturnal dyspnea. No orthopnea. No lightheadedness or dizziness. No syncopal episodes. Abdominal: Reports no abdominal pain. No nausea, vomiting. No diarrhea. No constipation. No bloody or tarry stools reports loss of appetite. Genitourinary: No dysuria, increased frequency, urgency. No urinary retention. Musculoskeletal: No myalgias. No muscle weakness, positive for gait dysfunction, severe pain in the right hip. Integumentary: No wounds, no rash or pruritus. No unusual bruising. No change in hair or nails,right foot callus Neurologic: No aphasia. No facial droop. No change in mentation. No head injury. No headache. No paralysis. No paresthesia. Psychiatric: depression. anxiety no mood swings. Endocrine: Fluctuation of blood glucose level. PAST MEDICAL HISTORY: DIABETES mellitus type 1. Diabetic polyneuropathy. Hypertension and hypertensive cardiovascular disease. Hyperlipidemia. PAD. Narcolepsy. CAD . Anxiety. Osteoarthritis. PAST SURGICAL HISTORY: APPENDECTOMY. Hysterectomy. Tubal ligation. Ectopic surgery. Cholecystectomy. bilateral cataract surgery. Bilateral carpal tunnel release. Left heart catheterization with PCI in 2010. Chest tube for pneumothorax. EGD and colonoscopy. SOCIAL HISTORY: patient used to smoke about pack every day she smoked since she was in her teenager, she quit many years ago, she denies any alcohol ingestion, no drug use or abuse. FAMILY HISTORY: mother in hospice care at the age of 75 after she had liver cirrhosis from alcoholic liver disease, father at age 58 from renal failure, patient has one brother with diabetes hypertension and heart disease is getting coronary artery bypass graft at [facility], patient had 4 sisters one with diabetes and she had the third stroke currently in [place], one with hypertension, one from diabetes and poor embolism at the age of 68, one of her sisters at age of 58 from metastatic breast cancer to the brain, patient has 2 sons no major medical problems. PHYSICAL EXAMINATION: General: 70-year-old -[place] female laying down in bed in moderate distress due to right hip pain. HEENT: Head is atraumatic, normocephalic, pupils were equal round reactive to light and recommendation, extraocular muscle movement were intact, sclera nonicteric, conjunctivae were pale, mucous membranes of the mouth are somewhat dry. Neck: Supple, no JVP, normal carotid upstroke bilaterally, no lymphadenopathy. Chest: Decreased breath sounds at the bases, few rhonchi, no extremity wheezes, no chest wall tenderness, no intercostal retractions. Heart: First heart sound is normal, second heart sounds normal there is systolic ejection murmur 2/6 located in the left sternal border. Abdomen: Soft, nontender, nondistended, positive bowel sounds. Extremities: There is no edema no calf tenderness DP +1 bilaterally, right lower extremity shorter with external rotation due to right hip fracture. Neurologic examination: Patient is awake alert and oriented x3, cranial nerves II-12 appear grossly intact, muscle power was not done due to pain in the right hip. ASSESSMENT AND PLAN: 1. Right intertrochanteric hip fracture. Patient will be admitted under my service, consult orthopedic surgery on-call for surgical intervention and possible IT nail. Continue patient on Lovenox 30 mg subcu Saturday every 12 hours, continue patient on Dilaudid 1 mg IV push every 3 hours as needed, continue Zofran 4 mg IV push every 6 hours as needed, monitor the patient very closely keep Wilson catheter, continue IV fluid resuscitation the form of normal saline at 75 mL an hour. Please obtain cardiology clearance prior to surgical intervention consult Dr. Hernandez. 2. Diabetes mellitus type 1 with diabetic polyneuropathy. Continue patient on Lantus 16 units at bedtime along with Humalog 6 units before each meal along with a sliding scale insulin. Monitor the patient blood glucose level before each meal and at bedtime. 3. Hypertension and hypertensive cardio vascular disease. Continue Coreg 12.5 mg orally twice every day, continue hydralazine 50 minute gram orally twice every day, continue with amlodipine 5 mg orally once every day. 4. Hyperlipidemia. Continue patient on Lipitor 40 mg orally once every day. 5. CAD post-PCI in 2010. Continue patient on Coreg 12.5 mg orally twice every day, continue Lipitor 40 mg orally once every day, discontinue aspirin prior to surgical intervention. 6. History of PAD with a recent callus of the right foot. Appears to be stable. 7. History of narcolepsy never treated. 8. DVT prophylaxis. Continue Lovenox 30 mg subcutaneously every 12 hours. 9. GI prophylaxis. Continue Protonix 40 mg IV push every 24 hours. 10. Admit to inpatient. Estimated length of stay to 2 midnights. 11. Patient is full code. Past Medical History Past Medical History: Coronary Artery Disease (CAD), Diabetes Mellitus, Deep Vein Thrombosis (DVT), GERD/Reflux, Hyperlipidemia, Hypertension, Osteoarthritis (OA), Vascular Disorder Additional Past Medical History / Comment(s): IDDM type I with diabetic neuropathy, narcolepsy, DVTs L lower extremity, vertigo occasionally, low back pian with bilateral sciatica, PAD, pneumothorax when pt was in her 20s with chest tube, constipation, bronchitis. The patient also had a infection will COVID 19 on 06/28/2019 from which she recovered. History of Any Multi-Drug Resistant Organisms: None Reported Past Surgical History: Appendectomy, Cholecystectomy, Heart Catheterization With Stent, Hysterectomy, Tubal Ligation Additional Past Surgical History / Comment(s): PCI/stent, ectopic pregnancies with eventual total hysterectomy, EGD, colonoscopy, L breast biopsy-benign, bilateral carpal tunnel release, bilateral eyes laser surgery/lens. Past Anesthesia/Blood Transfusion Reactions: Previous Problems w/ Anesthesia, Postoperative Nausea & Vomiting (PONV) Additional Past Anesthesia/Blood Transfusion Reaction / Comment(s): PT STATES HER AND HER FAMILY HAVE DIFFICULTY WAKING UP Date of Last Stent Placement:: Past Psychological History: No Psychological Hx Reported Additional Psychological History / Comment(s): Pt resides alone. Her spouse in September 2018. She states she still feels "stress" d/t her spouses but denies depression/thoughts or plans of suicide. She owns a cane/walker but has not needed to use them lately. She does not drive, her grandson or son take her to appts. Smoking Status: Never smoker Past Alcohol Use History: None Reported Additional Past Alcohol Use History / Comment(s): STARTED SMOKING AT AGE 12, QUIT AT AGE 26 SMOKED 1 PPD Past Drug Use History: None Reported - Past Family History Mother Family Medical History: Hypertension, Seizure Disorder Additional Family Medical History / Comment(s): Mother at age 75 Father Family Medical History: Renal Disease Additional Family Medical History / Comment(s): Father at age 58 from acute renal failure and he was an alcoholic. Son(s) Family Medical History: No Reported History Additional Family Medical History / Comment(s): Patient has 2 sons with no major medical problems. Medications and Allergies Home Medications Medication Instructions Recorded Confirmed Type Insulin Aspart [NovoLOG Flexpen] See Protocol SQ AC-TID PRN 06/26/19 08/15/20 History Aspirin 81 mg PO DAILY chew 06/30/19 08/15/20 Rx Cholecalciferol [Vitamin D3 (25 2,000 mcg PO DAILY 01/04/20 08/15/20 History Mcg = 1000 Iu)] Carvedilol [Coreg] 12.5 mg PO BID 04/15/20 08/15/20 History Insulin Aspart [NovoLOG Flexpen] 6 unit SQ AC-TID 04/15/20 08/15/20 History hydrALAZINE HCL [Apresoline] 50 mg PO TID 04/15/20 08/15/20 History Atorvastatin Calcium [Lipitor] 40 mg PO DAILY 08/15/20 08/15/20 History Cyanocobalamin (Vitamin B-12) 1,000 mcg PO DAILY 08/15/20 08/15/20 History [Vitamin B-12] Famotidine 10 mg PO DAILY PRN 08/15/20 08/15/20 History Insulin Glargine,Hum.rec.anlog 15 units SQ HS 08/15/20 08/15/20 History [Toujeo Solostar] lisinopriL [Zestril] 5 mg PO DAILY 08/15/20 08/15/20 History Allergies Allergy/AdvReac Type Severity Reaction Status Date / Time morphine AdvReac PASSES OUT Verified 08/15/20 14:39 nitroglycerin AdvReac PASSES OUT Verified 08/15/20 14:39 Sulfa (Sulfonamide AdvReac Itching Verified 08/15/20 14:39 Antibiotics) Physical Exam Vitals: Intake and Output 08/14/20 08/15/20 08/15/20 22:59 06:59 14:59 Other: Weight 63.503 kg Results Labs: Abnormal Lab Results - Last 24 Hours (Table) 08/15/20 Range/Units 13:24 POC Glucose (mg/dL) 274 H (75-99) mg/dL Thrombosis Risk Factor Assmnt - Choose All That Apply Any of the Below Risk Factors Present?: No Each Risk Factor Represents 2 Points: Age 61-74 years Other congenital or acquired thrombophilia - If yes, enter type in comment: Yes Each Risk Factor Represents 5 Points: Hip, pelvis, or leg fracture (< 1 month) Thrombosis Risk Factor Assessment Total Risk Factor Score: 7 Thrombosis Risk Factor Assessment Level: High Risk
[2020-08-15] MEDS ORDERED: HYDROcodone/APAP 5-325MG 1 EACH TAB PO PRN (15:56)
--- NOTE | 2020-08-15 16:05 | P.CNOR ---
History of Present Illness - [facility] Consult date: 08/15/20 Requesting physician: Mary Heath Consult reason: joint pain (Right hip pain), fracture (Right intertrochanteric hip fracture status post fall) History of present illness: Patient is a very pleasant 70-year-old female who was seen and examined at bedside for further evaluation of her right hip. She sustained a fall in her basement today when she was coming back up the steps on her sock slipped on the steps and she fell on her right hip. She had significant pain in the right hip and has been unable to ambulate since that time. She was taken to [facility] for further evaluation. She states she was told surgical intervention at her right hip would have to be performed by a surgeon in [place], [place]. She states she did not wish to be transferred out of the area. She was transferred to [facility] for further evaluation. She was admitted to medicine. She had imaging taken at [facility] which is currently being loaded. Reports that the patient has a right intertrochanteric hip fracture. She denies any other injuries at the time of the fall. Patient does live alone and is able to perform all regular activities of daily living without difficulty. She states she currently has a healing wound on the bottom of her right foot that was caused after wearing some of her 's boots that were too large. She states her 2 years ago this coming October. She currently has home care, in home physical therapy, and a caregiver to help take care of her while at home. Her past medical history does include coronary artery disease, insulin-dependent diabetes mellitus, history of DVT, hyperlipidemia, hypertension, and vascular disorder. Past Medical History Past Medical History: Coronary Artery Disease (CAD), Diabetes Mellitus, Deep Vein Thrombosis (DVT), GERD/Reflux, Hyperlipidemia, Hypertension, Osteoarthritis (OA), Vascular Disorder Additional Past Medical History / Comment(s): IDDM type I with diabetic neuropathy, narcolepsy, DVTs L lower extremity, vertigo occasionally, low back pian with bilateral sciatica, PAD, pneumothorax when pt was in her 20s with chest tube, constipation, bronchitis. The patient also had a infection will COVID 19 on 06/28/2019 from which she recovered. History of Any Multi-Drug Resistant Organisms: None Reported Past Surgical History: Appendectomy, Cholecystectomy, Heart Catheterization With Stent, Hysterectomy, Tubal Ligation Additional Past Surgical History / Comment(s): PCI/stent, ectopic pregnancies with eventual total hysterectomy, EGD, colonoscopy, L breast biopsy-benign, bilateral carpal tunnel release, bilateral eyes laser surgery/lens. Past Anesthesia/Blood Transfusion Reactions: Previous Problems w/ Anesthesia, Postoperative Nausea & Vomiting (PONV) Additional Past Anesthesia/Blood Transfusion Reaction / Comm: PT STATES HER AND HER FAMILY HAVE DIFFICULTY WAKING UP Date of Last Stent Placement:: Past Psychological History: No Psychological Hx Reported Additional Psychological History / Comment(s): Pt resides alone. Her spouse in September 2018. She states she still feels "stress" d/t her spouses but denies depression/thoughts or plans of suicide. She owns a cane/walker but has not needed to use them lately. She does not drive, her grandson or son take her to appts. Smoking Status: Never smoker Past Alcohol Use History: None Reported Additional Past Alcohol Use History / Comment(s): STARTED SMOKING AT AGE 12, QUIT AT AGE 26 SMOKED 1 PPD Past Drug Use History: None Reported - Past Family History Mother Family Medical History: Hypertension, Seizure Disorder Additional Family Medical History / Comment(s): Mother at age 75 Father Family Medical History: Renal Disease Additional Family Medical History / Comment(s): Father at age 58 from acute renal failure and he was an alcoholic. Son(s) Family Medical History: No Reported History Additional Family Medical History / Comment(s): Patient has 2 sons with no major medical problems. Medications and Allergies Home Medications Medication Instructions Recorded Confirmed Type Insulin Aspart [NovoLOG Flexpen] See Protocol SQ AC-TID PRN 06/26/19 08/15/20 History Aspirin 81 mg PO DAILY chew 06/30/19 08/15/20 Rx Cholecalciferol [Vitamin D3 (25 2,000 mcg PO DAILY 01/04/20 08/15/20 History Mcg = 1000 Iu)] Carvedilol [Coreg] 12.5 mg PO BID 04/15/20 08/15/20 History Insulin Aspart [NovoLOG Flexpen] 6 unit SQ AC-TID 04/15/20 08/15/20 History hydrALAZINE HCL [Apresoline] 50 mg PO TID 04/15/20 08/15/20 History Atorvastatin Calcium [Lipitor] 40 mg PO DAILY 08/15/20 08/15/20 History Cyanocobalamin (Vitamin B-12) 1,000 mcg PO DAILY 08/15/20 08/15/20 History [Vitamin B-12] Famotidine 10 mg PO DAILY PRN 08/15/20 08/15/20 History Insulin Glargine,Hum.rec.anlog 15 units SQ HS 08/15/20 08/15/20 History [Toujuan ao Solostar] lisinopriL [Zestril] 5 mg PO DAILY 08/15/20 08/15/20 History Allergies Allergy/AdvReac Type Severity Reaction Status Date / Time morphine AdvReac PASSES OUT Verified 08/15/20 14:39 nitroglycerin AdvReac PASSES OUT Verified 08/15/20 14:39 Sulfa (Sulfonamide AdvReac Itching Verified 08/15/20 14:39 Antibiotics) Physical Examination Physical exam: Patient is awake, alert, and oriented 3 Vital signs stable Good chest excursion with deep inspiration and expiration She is currently laying on her left hip Pain with palpation of the right hip Significant pain with internal and external rotation of the right hip Neurovascularly intact bilateral lower extremities Dorsiflexion, plantarflexion, and extensor hallucis longus positive sustained bilaterally Calves are soft and supple; No signs or symptoms of DVT; No calf pain Wilson catheter intact Results - Labs Labs: Abnormal Lab Results - Last 24 Hours (Table) 08/15/20 Range/Units 13:24 POC Glucose (mg/dL) 274 H (75-99) mg/dL Assessment and Plan Assessment: Assessment: Right intertrochanteric hip fracture Status post fall Right hip pain Inability ambulate due to pain Healing wound of the right foot Insulin-dependent diabetes mellitus History of coronary artery disease History DVT Hyperlipidemia Hypertension Vascular disorder (1) Fracture, intertrochanteric, right femur Current Visit: Yes Status: Acute Code(s): S72.141A - DISPLACED INTERTROCHANTERIC FRACTURE OF RIGHT FEMUR, INIT SNOMED Code(s): 149489695 (2) Right hip pain Current Visit: Yes Status: Acute Code(s): M25.551 - PAIN IN RIGHT HIP SNOMED Code(s): 00027332 (3) Inability to ambulate due to hip Current Visit: Yes Status: Acute Code(s): R26.2 - DIFFICULTY IN WALKING, NOT ELSEWHERE CLASSIFIED SNOMED Code(s): 811483813 (4) Wound of foot Current Visit: Yes Status: Acute Code(s): S91.309A - UNSPECIFIED OPEN WOUND, UNSPECIFIED FOOT, INITIAL ENCOUNTER SNOMED Code(s): 892630307 (5) Insulin dependent diabetes mellitus Current Visit: Yes Status: Acute Code(s): ANW8341 - SNOMED Code(s): 70720905 (6) History of coronary artery disease Current Visit: Yes Status: Acute Code(s): Z86.79 - PERSONAL HISTORY OF OTHER DISEASES OF THE CIRCULATORY SYSTEM SNOMED Code(s): 041160095 (7) History of DVT (deep vein thrombosis) Current Visit: Yes Status: Acute Code(s): Z86.718 - PERSONAL HISTORY OF OTHER VENOUS THROMBOSIS AND EMBOLISM SNOMED Code(s): 857360014 (8) Hyperlipidemia Current Visit: Yes Status: Acute Code(s): E78.5 - HYPERLIPIDEMIA, UNSPECIFIED SNOMED Code(s): 15206359 (9) Hypertension Current Visit: Yes Status: Acute Code(s): I10 - ESSENTIAL (PRIMARY) HYPERTENSION SNOMED Code(s): 24374541 (10) Vascular disorder Current Visit: Yes Status: Acute Code(s): I99.9 - UNSPECIFIED DISORDER OF CIRCULATORY SYSTEM SNOMED Code(s): 05072698 Plan: Plan: 1. After physical examination the patient, further discussion with the patient, in reviewing the pertinent information, We will currently plan to proceed forward with surgical intervention tentatively scheduled for 5:00 PM on 08/15/2020. She has a reported right hip intertrochanteric hip fracture. She has been unable to ambulate on her right lower extremity due to her hip fracture. She has significant pain with any active range of motion of her right hip. The proposed surgical intervention is a right hip medullary nail fixation for intertrochanteric hip fracture. We feel surgical intervention provides the best opportunity for her to regain a more normal range of motion of her right hip and for her to be able to increase her ambulation and mobility. We discussed that without surgical intervention, she would have significant difficulty in improving her ambulation status and would most likely have to remain non-ambulatory. Patient states at this time she would like to proceed forward with surgical intervention as she feels it provides her the best opportunity to have some relief of her symptoms and improvement in her ambulat ion and mobility. Patient will be seen and examined by medicine for surgical clearance. Imaging is currently being loaded which was taken at [facility]. We will plan to review this imaging prior to her scheduled surgical intervention. Patient is insulin-dependent diabetic. We'll plan to have her eat breakfast tomorrow morning but will be nothing by mouth after 8:00 AM in anticipation for surgical intervention at 5 PM tomorrow. I discussed these issues with the patient at length and I answered all of their questions to the best of my ability and the patient understands. I discussed the risk of surgical intervention and alternative treatment options. The risk of surgical intervention was explained to the patient in detail including but not limited to risk of bleeding, risk of infection, risk and need for further surgery, risk of decreased loss of motion of function, malunion, nonunion, hardware failure, nerve damage, paralysis, heart attack, , as well as the f act that surgery may not alleviate her symptoms. I answered all the patient's questions the best of my ability. The patient would like to proceed forward with surgical intervention and will sign informed consent. 2. Continue pain control with IV and oral medications; we will add [place] 5 mg/325 mg 1-2 tabs every 6 hours as needed for pain which has been discussed with nursing; patient does not have an ALLERGY but has previously had a side effect of morphine 3. Patient to remain non-weightbearing on the right lower extremity and on bedrest 4. Patient may eat a regular diet today and may have breakfast tomorrow and then will become nothing by mouth status starting at 8:00 AM on 08/16/2020 5. She was admitted to Dr. Heath in medicine who will plan for surgical clearance prior to surgical intervention; he'll plan to obtain appropriate laboratory testing and imaging as needed based upon the laboratory testing and imaging taken at [facility] prior to her transfer to [facility]; we will plan to obtain further imaging of her right hip if needed 6. Dr. Heath has also consulted cardiology for clearance prior to surgical intervention 7. We'll continue follow patient closely 8. Patient has been discussed in detail with Dr. Richard Kilgore and he agrees with this plan Time with Patient: Greater than 30 (Including obtaining history, physical examination, reviewing of imaging, and dictation.)
[2020-08-15 16:57] LABS: Glucose,Whole Blood 276 mg/dL (75-99)
[2020-08-15] MEDS: INSULIN ASPART (NovoLOG) 100 UNIT/ML VIAL SQ SCH ×3 (17:11→20:56)
[2020-08-15] MEDS: carvediloL 12.5 MG TAB PO SCH (17:12)
[2020-08-15] MEDS: hydrALAZINE HCL 50 MG TAB PO SCH ×2 (17:12→20:56)
[2020-08-15 20:37] LABS: Glucose,Whole Blood 235 mg/dL (75-99)
[2020-08-15] MEDS: ENOXAPARIN 30 MG/0.3 ML SYRINGE SQ SCH (20:55)
[2020-08-15] MEDS: INSULIN DETEMIR (LEVEMIR) 100 UNIT/ML SYR SQ SCH (20:57)
[2020-08-15] MEDS: HYDROmorphone 1 MG/ML 1 ML SYRINGE IVP PRN (22:39)
[2020-08-16] MEDS: HYDROmorphone 1 MG/ML 1 ML SYRINGE IVP PRN (02:18)
[2020-08-16] MEDS: SODIUM CHLORIDE 0.9% 1,000 ML IV SCH ×3 (06:02→21:02)
[2020-08-16 06:50] LABS: Glucose,Whole Blood 95 mg/dL (75-99)
[2020-08-16] MEDS: CYANOCOBALAMIN 500 MCG TAB PO SCH (08:01)
[2020-08-16] MEDS: ATORVASTATIN 40 MG TAB PO SCH (08:01)
[2020-08-16] MEDS: carvediloL 12.5 MG TAB PO SCH ×2 (08:01→15:09)
[2020-08-16] MEDS: CHOLECALCIFEROL 25 MCG (1000 IU) TABLET PO SCH (08:01)
[2020-08-16] MEDS: hydrALAZINE HCL 50 MG TAB PO SCH ×3 (08:01→21:49)
[2020-08-16] MEDS: PANTOPRAZOLE 40 MG/10 ML VIAL IVP SCH (08:02)
[2020-08-16] MEDS: INSULIN ASPART (NovoLOG) 100 UNIT/ML VIAL SQ SCH ×7 (08:02→21:50)
[2020-08-16] MEDS: ENOXAPARIN 30 MG/0.3 ML SYRINGE SQ SCH ×2 (08:03→21:03)
--- NOTE | 2020-08-16 08:51 | P.PN ---
Progress Note - Text Progress Note Date: 08/16/20 Orthopedics: History of present illness: Patient is a very pleasant 70-year-old female who was seen and examined at bedside for follow-up evaluation of her right hip. She sustained a fall in her basement yesterday when she was coming back up the steps on her sock slipped on the steps and she fell on her right hip. She had significant pain in the right hip and has been unable to ambulate since that time. She was taken to [facility] for further evaluation. She states she was told surgical intervention at her right hip would have to be performed by a surgeon in [place], [place]. She states she did not wish to be transferred out of the area. She was transferred to [facility] for further evaluation. She was admitted to medicine. She had imaging taken at [facility]. This imaging was being loaded yesterday but is still not visible. Imaging is still attempting to be loaded into the synapse. Reports that the patient has a right intertrochanteric hip fracture. She denies any other injuries at the time of the fall. Patient does live alone and is able to perform all regular activities of daily living without difficulty. She states she currently has a healing wound on the bottom of her right foot that was caused after wearing some of her 's boots that were too large. She states her 2 years ago this coming October. She currently has home care, in home physical therapy, and a caregiver to help take care of her while at home. Her past medical history does include coronary artery disease, insulin-dependent diabetes mellitus, history of DVT, hyperlipidemia, hypertension, and vascular disorder. She is currently scheduled to undergo a right intramedullary nail fixation for right intertrochanteric hip fracture today at approximately 5 PM. She has been cleared for surgery by medicine. She is waiting for further evaluation and clearance by cardiology. She is currently resting comfortably laying on her left hip and states her pain is well controlled at rest. Physical exam: Patient is awake, alert, and oriented 3 Vital signs stable Good chest excursion with deep inspiration and expiration She is currently laying on her left hip Pain with palpation of the right hip Significant pain with internal and external rotation of the right hip Neurovascularly intact bilateral lower extremities Dorsiflexion, plantarflexion, and extensor hallucis longus positive sustained bilaterally Calves are soft and supple; No signs or symptoms of DVT; No calf pain Wilson catheter intact Assessment: Right intertrochanteric hip fracture Status post fall Right hip pain Inability ambulate due to pain Healing wound of the right foot Insulin-dependent diabetes mellitus History of coronary artery disease History DVT Hyperlipidemia Hypertension Vascular disorder Plan: 1. We will continue with our plan as set forth yesterday. After physical examination the patient, further discussion with the patient, in reviewing the pertinent information, We will currently plan to proceed forward with surgical intervention tentatively scheduled for 5:00 PM on 08/16/2020. She has a reported right hip intertrochanteric hip fracture. She has been unable to ambulate on her right lower extremity due to her hip fracture. She has significant pain with any active range of motion of her right hip. The proposed surgical intervention is a right hip medullary nail fixation for intertrochanteric hip fracture. We feel surgical intervention provides the best opportunity for her to regain a more normal range of motion of her right hip and for her to be able to increase her ambulation and mobility. We discussed that without surgical intervention, she would have significant difficulty in improving her ambulation status and would most likely have to remain non- ambulatory. Patient states at this time she would like to proceed forward with surgical intervention as she feels it provides her the best opportunity to have some relief of her symptoms and improvement in her ambulation and mobility. Patient has been cleared for surgical intervention by medicine. She is waiting for further evaluation and clearance from a cardiology standpoint. They are still working to load imaging of her right hip which was taken at [facility]. We will plan to review this imaging prior to her scheduled surgical intervention. We will obtain further imaging if needed prior to surgical intervention. Patient is insulin-dependent diabetic. She was able to eat and currently breakfast and is now nothing by mouth. I discussed these issues with the patient at length and I answered all of their questions to the best of my ability and the patient understands. I discussed the risk of surgical intervention and alternative treatment options. The risk of surgical intervention was explained to the patient in detail including but not limited to risk of bleeding, risk of infection, risk and need for further surgery, risk of decreased loss of motion of function, malunion, nonunion, hardware failure, nerve damage, paralysis, heart attack, , as well as the fact that surgery may not alleviate her symptoms. I answered all the patient's questions the best of my ability. The patient would like to proceed forward with surgical intervention and will sign informed consent. 2. Continue pain control with IV and oral medications; we will add [place] 5 mg/325 mg 1-2 tabs every 6 hours as needed for pain which has been discussed with nursing; patient does not have an ALLERGY but has previously had a side effect of morphine 3. Patient to remain non-weightbearing on the right lower extremity and on bedrest 4. She was admitted to Dr. Heath in medicine who has cleared the patient for surgical intervention 5. Patient is currently waiting for consultation clearance by cardiology prior to surgical intervention 6. We'll continue follow patient closely 7. Patient has been discussed in detail with Dr. Richard Kilgore and he agrees with this plan
[2020-08-16 11:30] LABS: Glucose,Whole Blood 104 mg/dL (75-99)
--- NOTE | 2020-08-16 12:13 | P.PN ---
Subjective Progress Note Date: 08/16/20 HISTORY OF PRESENT ILLNESS: This is a 70 -year-old -[place] female with a previous medical history significant for hypertension and hypertensive cardiovascular disease, hyperlipidemia, diabetes mellitus type 1 with diabetic polyneuropathy, PAD, CAD post PCI in 2010 ,history of narcolepsy, history of osteoarthritis, patient was recently hospitalized at [facility] about few days ago after she was admitted for diabetic ketoacidosis with blood glucose level of 668, she was treated with insulin drip as well as IV fluid resuscitation after she was found to have an acute kidney injury and she was discharged home on Lantus 16 units at bedtime along with the Humalog 6 units with each meal plus the sliding scale insulin apparently the patient fell at home while she was going down the basement when she missed her steps and landed on the right side of her body developed to have a significant pain in the right hip she could not move around, she eventually managed to get some help, patient ended up getting transferred to [facility] where she was evaluated by computed tomography scan of the hip and an x-ray that showed right intertrochanteric hip fracture she was admitted under my service and was supposed to be seen in consultation by Dr. Bear however for some reason the patient declined to be seen by an orthopedic surgeon outside of [place] and she elected to be transferred to [facility] for evaluation by orthopedic surgery locally patient was transferred as a direct admission from the emergency department at [facility] to [facility] consult and orthopedic on-call. 08/16: Patient has been seen by orthopedics with recommendations for right hip medullary nail fixation for intertrochanteric hip fracture which is scheduled for surgery today at 5 PM. Cardiology consult is in place for clearance for surgery. Blood sugar this morning was 95 prior to that she was running 235-276. Patient has been afebrile, heart rate 84, blood pressure 103/63, pulse ox 98% on room air. Parameters placed on hydralazine to hold if blood pressure less than 110. REVIEW OF SYSTEMS: Constitutional: No documented fever, no chills, no night sweats. No weight change. No weakness, fatigue or lethargy. No daytime sleepiness. HEENT: No headache. No blurred vision or double vision, no loss of vision. No loss of Hearing, no ringing in the ears, no dizziness. No nasal drainage or congestion. No epistaxis. No sore throat. Lungs: No shortness of breath, no cough, no sputum production. No wheezing. Reports dyspnea with activity. Cardiovascular: No chest pain, no lower extremity edema. No palpitations. No paroxysmal nocturnal dyspnea. No orthopnea. No lightheadedness or dizziness. No syncopal episodes. Abdominal: Reports no abdominal pain. No nausea, vomiting. No diarrhea. No constipation. No bloody or tarry stools reports loss of appetite. Genitourinary: No dysuria, increased frequency, urgency. No urinary retention. Musculoskeletal: No myalgias. No muscle weakness, positive for gait dysfunction, severe pain in the right hip. Integumentary: No wounds, no rash or pruritus. No unusual bruising. No change in hair or nails,right foot callus Neurologic: No aphasia. No facial droop. No change in mentation. No head injury. No headache. No paralysis. No paresthesia. Psychiatric: depression. anxiety no mood swings. Endocrine: Fluctuation of blood glucose level. PHYSICAL EXAMINATION: General: 70-year-old -[place] female laying down in bed in mild distress due to right hip pain. HEENT: Head is atraumatic, normocephalic, pupils were equal round reactive to light and recommendation, extraocular muscle movement were intact, sclera nonicteric, conjunctivae were pale, mucous membranes of the mouth are somewhat dry. Neck: Supple, no JVP, normal carotid upstroke bilaterally, no lymphadenopathy. Chest: Decreased breath sounds at the bases, few rhonchi, no extremity wheezes, no chest wall tenderness, no intercostal retractions. Heart: First heart sound is normal, second heart sounds normal there is systolic ejection murmur 2/6 located in the left sternal border. Abdomen: Soft, nontender, nondistended, positive bowel sounds. Extremities: There is no edema no calf tenderness DP +1 bilaterally, right lower extremity shorter with external rotation due to right hip fracture. Neurologic examination: Patient is awake alert and oriented x3, cranial nerves II-12 appear grossly intact, muscle power was not done due to pain in the right hip. ASSESSMENT AND PLAN: 1. Right intertrochanteric hip fracturorthopedic consult appreciated. Patient is scheduled today for right hip medullary nail fixation. Continue patient on Lovenox 30 mg subcu every 12 hours, continue patient on Dilaudid 1 mg IV push every 3 hours as needed, continue Zofran 4 mg IV push every 6 hours as needed, monitor the patient very closely keep Wilson catheter, continue IV fluid resuscitation the form of normal saline at 75 mL an hour. Please obtain cardiology clearance prior to surgical intervention consult Dr. Hernandez. 2. Diabetes mellitus type 1 with diabetic polyneuropathy. Continue patient on Lantus 16 units at bedtime along with Humalog 6 units before each meal along with a sliding scale insulin. Monitor the patient blood glucose level before each meal and at bedtime. 3. Hypertension and hypertensive cardio vascular disease. Continue Coreg 12.5 mg orally twice every day, continue hydralazine 50 minute gram orally twice every day (parameters to hold if systolic blood pressure less than 110), hold lisinopril 5 mg daily. 4. Hyperlipidemia. Continue patient on Lipitor 40 mg orally once every day. 5. CAD post-PCI in 2010. Continue patient on Coreg 12.5 mg orally twice every day, continue Lipitor 40 mg orally once every day, discontinue aspirin prior to surgical intervention. 6. History of PAD with a recent callus of the right foot, right foot diabetic foot ulcer following at the [facility]. Appears to be stable. 7. History of narcolepsy never treated. 8. DVT prophylaxis. Continue Lovenox 30 mg subcutaneously every 12 hours. 9. GI prophylaxis. Continue Protonix 40 mg IV push every 24 hours. 10. Patient is full code. DISCHARGE PLAN Subacute rehab was likely. Currently, [facility] is in place. Impression and plan of care have been directed as dictated by the signing physician. Faith Camarillo nurse practitioner acting as scribe for signing physician. Objective - Vital Signs Vital signs: Vital Signs Temp 99.0 F 08/16/20 02:00 Pulse 84 08/16/20 02:00 Resp 18 08/16/20 02:00 BP 103/63 08/16/20 02:00 Pulse Ox 98 08/16/20 02:00 Intake & Output 08/15/20 08/16/20 08/16/20 18:59 06:59 18:59 Output Total 350 Balance -350 Weight 63.503 kg Output: Urine 350 Other: Voiding Method Indwelling Catheter - Labs Labs: Abnormal Lab Results - Last 24 Hours (Table) 08/15/20 08/15/20 08/15/20 Range/Units 13:24 16:55 20:34 POC Glucose (mg/dL) 274 H 276 H 235 H (75-99) mg/dL
--- NOTE | 2020-08-16 15:48 | P.CRDCN ---
History of Present Illness History of present illness: HISTORY OF PRESENTING ILLNESS This is a pleasant 70-year-old female past medical history significant for diabetes mellitus type 1, diabetic neuropathy, hypertension, paroxysmal atrial fibrillation, CAD status post PCI of the PDA in 2010, DVT, recent weight loss, CKD, anemia. She follows in the office with Dr Hernandez. We have been asked to see in consultation for cardiac clearance. She sustained a fall in her basement today when she was coming back up the steps on her sock slipped on the steps and she fell on her right hip. She had significant pain in the right hip and has been unable to ambulate since that time. She was taken to [facility] for further evaluation. She states she was told surgical intervention at her right hip would have to be performed by a surgeon in [place], [place]. She states she did not wish to be transferred out of the area. She was transferred to [facility] for further evaluation. Patient was found to have Right hip intertrochanteric hip fracture.orthopedics was following the patient in June plan for surgical intervention with the right hip intramedullary nail fixation for intertrochanteric hip fracture Today. Patient seen and examined at bedside, no acute distress. Her pain is currently controlled. She denies any chest pain, shortness of breath, syncope, lightheadedness, dizziness, palpitations, lower extremity edema. DIAGNOSTICS Patient underwent Cardiolite stress test 03/12/2019 which was normal Most recent echocardiogram was 04/16/2020 revealed EF of 50-55%. Current home cardiac medications include lisinopril 5 mg daily, atorvastatin 40 mg daily, hydralazine 50 mg 3 times a day, carvedilol 12.5 mg twice a day, aspirin 81 mg daily Most recent cardiac catheterization 2010- successful stenting of subtotal PDA. 70% ostial obtuse marginal stenosis, LVEDP 16 REVIEW OF SYSTEMS At the time of my exam: CONSTITUTIONAL: Denies fever or chills. CARDIOVASCULAR: Denies chest pain, shortness of breath, orthopnea, PND or palpitations. RESPIRATORY: Denies cough. GASTROINTESTINAL: Denies abdominal pain, diarrhea, constipation, nausea or vomiting. MUSCULOSKELETAL: right hip pain NEUROLOGIC: Denies numbness, tingling or weakness. ENDOCRINE: Denies fatigue, weight change, polydipsia or polyurina. GENITOURINARY: Denies burning, hematuria or urgency with micturation. HEMATOLOGIC: Denies history of anemia or bleeding. PHYSICAL EXAMINATION Blood pressure heart rate afebrile and maintaining oxygen saturation on room air. CONSTITUTIONAL: No apparent distress. HEENT: Head is normocephalic. Pupils are equal, round. Sclerae anicteric. Mucous membranes of the mouth are moist. No JVD. No carotid bruit. CHEST EXAMINATION: Lungs are clear to auscultation. No chest wall tenderness is noted on palpation or with deep breathing. HEART EXAMINATION: Regular rate and rhythm. S1, S2 heard. ABDOMEN: Soft, nontender. Positive bowel sounds. EXTREMITIES: 2+ peripheral pulses, no lower extremity edema and no calf tenderness. NEUROLOGIC EXAMINATION: Patient is awake, alert and oriented x3. ASSESSMENT Mechanical Fall Right hip intertrochanteric hip fracture. Type 1 diabetes mellitus History of coronary artery disease with prior PCI to RCA Paroxysmal atrial fibrillation, currently normal sinus rhythm Anemia Hypertension Hyperlipidemia PLAN from a cardiology perspective patient is moderate to high risk for cardiac event during surgery. Patient may proceed with surgery with no further cardiac testin g at this time due to the benefit outweighs the risk. Recommend cautious fluid administration and optimal BP control. Past Medical History Past Medical History: Coronary Artery Disease (CAD), Diabetes Mellitus, Deep Vein Thrombosis (DVT), GERD/Reflux, Hyperlipidemia, Hypertension, Osteoarthritis (OA), Vascular Disorder Additional Past Medical History / Comment(s): IDDM type I with diabetic neuropathy, narcolepsy, DVTs L lower extremity, vertigo occasionally, low back pian with bilateral sciatica, PAD, pneumothorax when pt was in her 20s with chest tube, constipation, bronchitis. The patient also had a infection will COVID 19 on 06/28/2019 from which she recovered. History of Any Multi-Drug Resistant Organisms: None Reported Past Surgical History: Appendectomy, Cholecystectomy, Heart Catheterization With Stent, Hysterectomy, Tubal Ligation Additional Past Surgical History / Comment(s): PCI/stent, ectopic pregnancies with eventual total hysterectomy, EGD, colonoscopy, L breast biopsy-benign, bilateral carpal tunnel release, bilateral eyes laser surgery/lens. Past Anesthesia/Blood Transfusion Reactions: Previous Problems w/ Anesthesia, Postoperative Nausea & Vomiting (PONV) Additional Past Anesthesia/Blood Transfusion Reaction / Comment(s): PT STATES HER AND HER FAMILY HAVE DIFFICULTY WAKING UP Date of Last Stent Placement:: Past Psychological History: No Psychological Hx Reported Additional Psychological History / Comment(s): Pt resides alone. Her spouse in September 2018. She states she still feels "stress" d/t her spouses but denies depression/thoughts or plans of suicide. She owns a cane/walker but has not needed to use them lately. She does not drive, her grandson or son take her to appts. Smoking Status: Never smoker Past Alcohol Use History: None Reported Additional Past Alcohol Use History / Comment(s): STARTED SMOKING AT AGE 12, QUIT AT AGE 26 SMOKED 1 PPD Past Drug Use History: None Reported - Past Family History Mother Family Medical History: Hypertension, Seizure Disorder Additional Family Medical History / Comment(s): Mother at age 75 Father Family Medical History: Renal Disease Additional Family Medical History / Comment(s): Father at age 58 from acute renal failure and he was an alcoholic. Son(s) Family Medical History: No Reported History Additional Family Medical History / Comment(s): Patient has 2 sons with no major medical problems. Medications and Allergies Home Medications Medication Instructions Recorded Confirmed Type Aspirin 81 mg PO DAILY chew 06/30/19 08/15/20 Rx Cholecalciferol [Vitamin D3 (25 2,000 mcg PO DAILY 01/04/20 08/15/20 History Mcg = 1000 Iu)] Carvedilol [Coreg] 12.5 mg PO BID 04/15/20 08/15/20 History hydrALAZINE HCL [Apresoline] 50 mg PO TID 04/15/20 08/15/20 History Atorvastatin Calcium [Lipitor] 40 mg PO DAILY 08/15/20 08/15/20 History Cyanocobalamin (Vitamin B-12) 1,000 mcg PO DAILY 08/15/20 08/15/20 History [Vitamin B-12] Famotidine 10 mg PO DAILY PRN 08/15/20 08/15/20 History Insulin Glargine,Hum.rec.anlog 15 units SQ HS 08/15/20 08/15/20 History [Jaxson Read] lisinopriL [Zestril] 5 mg PO DAILY 08/15/20 08/15/20 History Insulin Lispro [humaLOG Kwikpen] 6 unit SQ AC-TID 08/16/20 08/16/20 History Insulin Lispro [humaLOG Kwikpen] See Protocol SQ AC-TID 08/16/20 08/16/20 History Allergies Allergy/AdvReac Type Severity Reaction Status Date / Time morphine AdvReac PASSES OUT Verified 08/15/20 14:39 nitroglycerin AdvReac PASSES OUT Verified 08/15/20 14:39 Sulfa (Sulfonamide AdvReac Itching Verified 08/15/20 14:39 Antibiotics) Physical Exam Vitals: Vital Signs Temp Pulse Resp BP Pulse Ox 08/16/20 07:50 97.6 F 85 18 156/77 95 08/16/20 07:15 85 18 08/16/20 02:00 99.0 F 84 18 103/63 98 08/15/20 19:13 99.1 F 101 H 18 119/66 97 08/15/20 15:07 98.5 F 100 16 154/76 94 L 08/15/20 12:30 97.9 F 95 18 170/79 99 Intake and Output 08/15/20 08/16/20 08/16/20 22:59 06:59 14:59 Output Total 350 Balance -350 Output: Urine 350 Other: Voiding Method Indwelling Catheter Indwelling Catheter Results Current Medications Generic Name Dose Route Start Last Admin Trade Name Freq PRN Reason Stop Dose Admin Hydrocodone Bitart/Acetaminophen 1 - 2 each 08/15/20 15:56 08/15/20 20:55 Hydrocodone/Apap 5-325mg 1 Each Tab PO 1 each Q6HR PRN Administration Pain Atorvastatin Calcium 40 mg 08/16/20 09:00 08/16/20 08:01 Atorvastatin 40 Mg Tab PO 40 mg DAILY TOMÁS Administration Carvedilol 12.5 mg 08/15/20 17:30 08/16/20 08:01 Carvedilol 12.5 Mg Tab PO 12.5 mg BID-W/MEALS TOMÁS Administration Cholecalciferol 50 mcg 08/16/20 09:00 08/16/20 08:01 Cholecalciferol 25 Mcg (1000 Iu) Tablet PO 50 mcg DAILY TOMÁS Administration Cyanocobalamin 1,000 mcg 08/16/20 09:00 08/16/20 08:01 Cyanocobalamin 500 Mcg Tab PO 1,000 mcg DAILY TOMÁS Administration Enoxaparin Sodium 30 mg 08/15/20 21:00 08/16/20 08:03 Enoxaparin 30 Mg/0.3 Ml Syringe SQ Not Given Q12HR TOMSÁ Hydralazine HCl 50 mg 08/15/20 16:00 08/16/20 08:01 Hydralazine Hcl 50 Mg Tab PO 50 mg TID TOMÁS Administration Hydromorphone HCl 1 mg 08/15/20 14:41 08/16/20 02:18 Hydromorphone 1 Mg/Ml 1 Ml Syringe IVP 1 mg Q4HR PRN Administration Pain Sodium Chloride 1,000 mls @ 75 mls/hr 08/15/20 15:00 08/16/20 06:02 Saline 0.9% IV 75 mls/hr .[id number] TOMÁS Administration Insulin Aspart 6 unit 08/15/20 17:30 08/16/20 11:33 Insulin Aspart (Novolog) 100 Unit/Ml Vial SQ Not Given AC-TID TOMÁS Insulin Aspart 0 unit 08/15/20 17:30 08/16/20 11:33 Insulin Aspart (Novolog) 100 Unit/Ml Vial SQ Not Given ACHS [facility] Protocol Insulin Detemir 16 unit 08/15/20 21:00 08/15/20 20:57 Insulin Detemir (Levemir) 100 Unit/Ml Syr SQ 16 unit HS TOMÁS Administration Ondansetron HCl 4 mg 08/15/20 15:00 08/15/20 22:40 Ondansetron 4 Mg/2 Ml Vial IVP 4 mg Q6HR PRN Administration Nausea And Vomiting Pantoprazole Sodium 40 mg 08/16/20 09:00 08/16/20 08:02 Pantoprazole 40 Mg/10 Ml Vial IVP 40 mg DAILY TOMÁS Administration Intake and Output 08/15/20 08/16/20 08/16/20 22:59 06:59 14:59 Output Total 350 Balance -350 Output: Urine 350 Other: Voiding Method Indwelling Catheter Indwelling Catheter
[2020-08-16 16:25] LABS: Glucose,Whole Blood 120 mg/dL (75-99)
[2020-08-16] MEDS ORDERED: LACTATED RINGERS 1,000 ML IV ONE (16:25)
[2020-08-16] MEDS ORDERED: MIDAZOLAM 2 MG/2 ML VIAL ONE (17:49)
[2020-08-16] MEDS ORDERED: diphenhydrAMINE 50 MG/ML 1 ML VIAL ONE (17:49)
[2020-08-16] MEDS ORDERED: fentaNYL (PF) 50 MCG/ML 2 ML AMP ONE (17:49)
[2020-08-16] MEDS ORDERED: KETAMINE 10 MG/ML 20 ML VIAL ONE (17:49)
[2020-08-16] MEDS ORDERED: ceFAZolin 1,000 MG in SODIUM CHLORIDE 0.9% 1,000 ML IRRIGATION ONE ×4 (18:39)
[2020-08-16] MEDS ORDERED: ONDANSETRON 4 MG/2 ML VIAL IVP PRN (19:44)
[2020-08-16] MEDS ORDERED: MAGNESIUM HYDROXIDE 2,400 MG/10 ML CUP PO PRN ×2 (19:44)
[2020-08-16] MEDS ORDERED: ACETAMINOPHEN TAB 325 MG TAB PO PRN (19:44)
[2020-08-16] MEDS ORDERED: BENZOCAINE/MENTHOL LOZENG 1 EACH LOZENGE MUCOUS MEM PRN (19:44)
[2020-08-16] MEDS ORDERED: NALOXONE 0.4 MG/ML 1 ML VIAL IV PRN (19:44)
[2020-08-16] MEDS ORDERED: traMADol 50 MG TAB PO PRN (19:44)
[2020-08-16] MEDS ORDERED: HYDROmorphone 0.5 MG/0.5 ML SYRINGE IVP PRN (19:44)
--- NOTE | 2020-08-16 19:50 | P.OP ---
Date of Procedure: 08/16/20 Preoperative Diagnosis: Right hip intertrochanteric femur fracture, status post fall acute traumatic fracture, right hip pain, inability to ambulate Postoperative Diagnosis: Same Anesthesia: GETA Pathology: other (Femoral reamings to pathology) Condition: stable Disposition: PACU Description of Procedure: Preoperative diagnosis: Right hip intertrochanteric femur fracture, status post fall acute traumatic fracture, right hip pain, inability to ambulate Postoperative diagnosis: Same Procedure: intertrochanteric hip screw placement Use of fluoroscopic guidance Closed reduction Surgeon: Dr. Magui Hsu.: events administrative assistant Anesthesia: Spinal anesthesia Estimated blood loss: Approximately 200 mL Components implanted: [employer] InterTAN 1 30 x 11 mm short philipp with a 90 mm lag screw 85 mm locking screw and a distal locking screw measuring 30 mm Disposition: To recovery room in good stable condition Operative indications The patient sustained a injury and suffered a right hip fracture at the inter- trochanteric area of her femur which was displaced and angulated. She had presented to an outside hospital and was transferred here for further orthopedic management. We were involved in the case in regard to his hip fracture. After evaluation it was determined that they would be a candidate for hip internal fixation and stabilization via surgical intervention. This would give them the best chance of mobilization and ambulation. We discussed the range of treatment options from conservative to surgical. They elected proceed with surgical intervention. We answered their questions to the best of our ability healing which they can understand. They signed an informed consent. Operative summary After obtaining informed consent evaluation by anesthesia, preoperative evaluation and clearance for medical service, the patient was identified and prepped Wilson area and the surgical site was marked. There brought to the operating room where the given appropriate anesthesia by the anesthesia department in standard fashion without any complications. Once the anesthesia was established we were able to position the patient. The patient was placed on a fracture table with a well-padded perineal post. The operative side was placed in a foot peterson stirrup which was well-padded well molded and placed in gentle in-line traction. The nonoperative leg was placed in a padded stirrup. C-arm was brought in and we performed a closed reduction technique at the right hip. We are able to get good alignment good position of the intertrochanteric fracture with gentle reduction techniques and traction utilizing the fracture table. Once patient was well positioned lower extremity was prepped and draped in normal standard sterile fashion. An appropriate keystone protocol and timeout was completed and were able to proceed with surgery. He started point just proximal to the greater trochanter was established and a median incision approximately 2 inches in length approximately to the greater trochanter. I dissected down through the fascia and I was able to expose the tip of the greater trochanter. A sharp starting hole was established at the tip of the greater trochanter near the junction of the anterior and middle third. Positioning was confirmed with C-arm guidance. I was able to start the awl into the bone and then use a guidepin at the starting point establish down to the level of the lesser trochanter at the intramedullary space. I then used a starting reamer for the greater trochanter placed over the guidepin and reamed down appropriately under C-arm guidance. I was unable to place a guidepin into the intramedullary aspect of the femur and then reamed appropriately to the appropriate length. The positioning was confirmed on C-arm guidance. With the femur appropriately reamed I then chose the appropriate size intramedullary philipp which was connected to the appropriate jig. The jig was checked for alignment. The area was copiously irrigated and suctioned dry and we're able place the philipp at intramedullary space through the starting hole appropriately. It was seated down for appropriate position to align the leg pain into the femoral neck and head. A second incision was established at the site for the placement of the lag screw area and the guide was established at the lateral aspect of the femur and a guidepin was drilled into the femoral neck and head and near center center position. With this appropriate alignment and position where a reamer over the guidepin making sure not to penetrate the articular surface. The position was confirmed on C-arm guidance in AP and lateral positions. With this established we were able to place the appropriate size lag screw after measuring. Lag screw was placed into the femoral neck and head good alignment good position with excellent bony purchase. It was appropriately aligned and we placed a locking screw through the philipp appropriately and checked that the position was established. I was able to drill and place the compression screw immediately adjacent and inferior to the lag screw which gave good compression across the fracture site in good alignment and position. With the area in good position able place a distal locking screw. We utilized the guide sleeve a separate incision was made at the skin. The guide sleeve was placed in the lateral aspect of the right femur and the distal locking screw hole was established through the femur and distal locking hole of the intramedullary philipp. It was measured appropriately and a distal locking screw was placed in good alignment and good position with excellent bony purchase. The position was checked to make sure it was through the appropriate hole in the intramedullary philipp. With this established we're able to remove the jig completely from the philipp and final images were taken which showed excellent alignment and position of the hardware and the fracture. With the philipp in place and the fracture stable, although the incision sites were copiously irrigated and suctioned dry. Good hemostasis was maintained. Deep fascial layers were closed with #1 Vicryl. Subcu tissue was closed with 2-0 Vicryl. Subcuticular tissues closed with 3-0 Vicryl. Was are cleaned and dried with dressed with glue and operative foam dressing Drapes were broken down, the hip was held in stable position with the post being removed safely once the positioning was stabilized. The patient was then transferred back to their hospital bed being careful to maintain the hip and C- spine alignment and airway. Once stable to patient was transferred back to the postanesthesia care unit to be readmitted for pain control and DVT prophylaxis medical management and monitoring and mobilization we will continue follow patient closely throughout their postoperative course.
--- NOTE | 2020-08-16 19:57 | XR ---
EXAMINATION TYPE: XR Hip Complete RT DATE OF EXAM: 08/16/2020 COMPARISON: Yesterday HISTORY: Surgery TECHNIQUE: 2 views FINDINGS: 2 fluoroscopic images show intramedullary philipp and transverse screw fixing the intertrochant rj fracture of the right femur. Fragments are in anatomic position. IMPRESSION: No complicating process seen.
[2020-08-16 20:39] LABS: Glucose,Whole Blood 150 mg/dL (75-99)
[2020-08-16] MEDS: SENNOSIDES-DOCUSATE SODIUM 1 EACH TAB PO SCH (21:49)
[2020-08-16] MEDS: ASPIRIN 325 MG TAB PO SCH (21:49)
[2020-08-16] MEDS: INSULIN DETEMIR (LEVEMIR) 100 UNIT/ML SYR SQ SCH (21:52)
[2020-08-17] MEDS: HYDROcodone/APAP 5-325MG 1 EACH TAB PO PRN ×2 (00:17→05:18)
[2020-08-17 02:25] LABS: Basophils # (A) 0.02 X 10*3/uL (0.00-0.10); Basophils % (A) 0.4 %; Eosinophils # (A) 0.12 X 10*3/uL (0.04-0.35); Eosinophils % (A) 2.3 %; HCT 30.5 % (37.2-46.3); HGB 9.3 g/dL (12.0-15.0); Lymphocytes # (A) 0.91 X 10*3/uL (0.90-5.00); Lymphocytes % (A) 17.7 %; MCH 26.9 pg (27.0-32.0); MCHC 30.5 g/dL (32.0-37.0); MCV 88.2 fL (80.0-97.0); Mean Platelet Volume 12.5 fL (9.5-12.2); Monocytes % (A) 9.7 %; Neutrophils # (A) 3.54 X 10*3/uL (1.80-7.70); Neutrophils % (A) 69.1 %; Platelet Count 212 X 10*3/uL (140-440); RBC 3.46 X 10*6/uL (4.10-5.20); RDW 15.8 % (11.5-14.5); WBC 5.13 X 10*3/uL (4.50-10.00)
[2020-08-17 06:52] LABS: Glucose,Whole Blood 85 mg/dL (75-99)
--- NOTE | 2020-08-17 07:39 | FL ---
Fluoroscopy History: ORIF right hip 1 min 51 sec fl
[2020-08-17] MEDS: INSULIN ASPART (NovoLOG) 100 UNIT/ML VIAL SQ SCH ×7 (07:58→20:50)
[2020-08-17] MEDS: HYDROmorphone 1 MG/ML 1 ML SYRINGE IVP PRN (08:17)
[2020-08-17] MEDS: ENOXAPARIN 30 MG/0.3 ML SYRINGE SQ SCH ×2 (08:17→20:37)
[2020-08-17] MEDS: ATORVASTATIN 40 MG TAB PO SCH (08:18)
[2020-08-17] MEDS: ASPIRIN 325 MG TAB PO SCH ×2 (08:18→20:38)
[2020-08-17] MEDS: SENNOSIDES-DOCUSATE SODIUM 1 EACH TAB PO SCH ×2 (08:18→20:37)
[2020-08-17] MEDS: PANTOPRAZOLE 40 MG/10 ML VIAL IVP SCH (08:18)
[2020-08-17] MEDS: SODIUM CHLORIDE 0.9% 1,000 ML IV SCH ×2 (08:18→08:19)
[2020-08-17] MEDS: CYANOCOBALAMIN 500 MCG TAB PO SCH (08:18)
[2020-08-17] MEDS: carvediloL 12.5 MG TAB PO SCH ×2 (08:19→17:13)
[2020-08-17] MEDS: CHOLECALCIFEROL 25 MCG (1000 IU) TABLET PO SCH (08:19)
[2020-08-17] MEDS: hydrALAZINE HCL 50 MG TAB PO SCH ×3 (08:19→20:49)
[2020-08-17 11:22] LABS: Glucose,Whole Blood 82 mg/dL (75-99)
--- NOTE | 2020-08-17 14:28 | P.PN ---
Progress Note - Text Progress Note Date: 08/17/20 Orthopedics: History of present illness: Patient is a very pleasant 70-year-old female who is seen and examined at the bedside for further evaluation of her right hip. She is status post right hip intramedullary nail fixation for right intertrochanteric hip fracture performed yesterday, 08/16/2020. She has not been out of bed yet this morning. She has continued to have pain at her right hip. She does do her pain can be better controlled. She is able to eat without difficulty this morning. She is looking forward to working with physical therapy to increase her mobility. Consultation has been placed with social work to help with discharge planning. She would like to be discharged home with home care and home physical therapy. She also has a caregiver at home. She continues to be seen and by medicine for her other medical diagnoses including coronary artery disease, insulin-dependent diabetes mellitus, history of DVT, hyperlipidemia, hypertension, and vascular disorder. She is currently taking aspirin 325 mg twice a day for anticoagulation postoperatively. Her Wilson catheter has remained intact. Physical Exam Intramedullary [place] for Intertrochanteric Fracture: Status post surgical day number 1 Patient is examined lying in bed Patient is awake and alert, and oriented 3 Vital signs stable Good chest excursion with deep inspiration and expiration No signs or symptoms of DVT; no calf pain Lower extremity cuffs in place bilaterally Dressing of the right hip is clean, dry, and intact; no erythema, purulence, or signs of infection No pain with palpation over the surgical sites Full range of motion of ankles bilaterally Dorsiflexion, plantarflexion, and extensor hallucis longus positive sustained bilaterally Neurovascularly intact bilateral lower extremities Capillary refill less than 2 seconds bilateral lower extremities Assessment: Status post right hip intramedullary nail fixation for intertrochanteric hip fracture Status post fall Right hip pain Inability ambulate due to pain Healing wound of the right foot Insulin-dependent diabetes mellitus History of coronary artery disease History DVT Hyperlipidemia Hypertension Vascular disorder Plan: 1. Patient to remain nonweightbearing on the right lower extremity; patient may work with physical therapy to increase mobility and ambulation 2. Keep dressing over the right hip clean, dry, and intact 3. Discontinue Wilson catheter when patient is able to increase mobility and ambulation 4. Continue pain control with oral [place] and IV Dilaudid as needed for pain control; will plan to increase [place] to [place] 7.5 mg/325 mg 1 tab every 4 hours as needed for pain; [place] 5 mg/325 mg has been discontinued 5. Continue with anticoagulation therapy with aspirin 325 mg twice a day 6. Medicine to continue following the patient for their other medical diagnosis including coronary artery disease, insulin-dependent diabetes mellitus, history of DVT, hyperlipidemia, hypertension, and vascular disorde 7. We'll continue to follow the patient closely; depending on the patient's progress, we may plan for discharge home over the next 1-2 days with, home therapy, and the care of her caregiver 8. Consultation has replaced with Dr. Rodrigez for wound care for her right foot; patient has been having ongoing wound care by Dr. Rodrigez prior to her admittance to the hospital for her healing right foot wound 9. Patient can follow-up with Indra Tran PA-C or Dr. Richard Kilgore at [facility] in 2-3 weeks following discharge
--- NOTE | 2020-08-17 14:38 | P.PN ---
Subjective Progress Note Date: 08/17/20 HISTORY OF PRESENT ILLNESS: This is a 70 -year-old -[place] female with a previous medical history significant for hypertension and hypertensive cardiovascular disease, hyperlipidemia, diabetes mellitus type 1 with diabetic polyneuropathy, PAD, CAD post PCI in 2010 ,history of narcolepsy, history of osteoarthritis, patient was recently hospitalized at [facility] about few days ago after she was admitted for diabetic ketoacidosis with blood glucose level of 668, she was treated with insulin drip as well as IV fluid resuscitation after she was found to have an acute kidney injury and she was discharged home on Lantus 16 units at bedtime along with the Humalog 6 units with each meal plus the sliding scale insulin apparently the patient fell at home while she was going down the basement when she missed her steps and landed on the right side of her body developed to have a significant pain in the right hip she could not move around, she eventually managed to get some help, patient ended up getting transferred to [facility] where she was evaluated by computed tomography scan of the hip and an x-ray that showed right intertrochanteric hip fracture she was a dmitted under my service and was supposed to be seen in consultation by Dr. Bear however for some reason the patient declined to be seen by an orthopedic surgeon outside of [place] and she elected to be transferred to [facility] for evaluation by orthopedic surgery locally patient was transferred as a direct admission from the emergency department at [facility] to [facility] consult and orthopedic on-call. 08/16: Patient has been seen by orthopedics with recommendations for right hip medullary nail fixation for intertrochanteric hip fracture which is scheduled for surgery today at 5 PM. Cardiology consult is in place for clearance for surgery. Blood sugar this morning was 95 prior to that she was running 235-276. Patient has been afebrile, heart rate 84, blood pressure 103/63, pulse ox 98% on room air. Parameters placed on hydralazine to hold if blood pressure less than 110. 08/17: Patient complains of having a lot of pain #8 out of 10. She received Olin, patient starts will obtain Dilaudid for her now. Patient is on aspirin 325 mg twice a day for anticoagulation. Wilson catheter is in place expect this to be removed today. Patient verbalizes that she plans to go home but one will be determined once patient is worked with physical therapy. Blood sugars have been running between 85 and 150. Repeat hemoglobin is at 9.3, platelet count 212, WBC 5.1. She has been afebrile, heart rate 87, blood pressure 142/72 and pulse ox 94% on room air. Lisinopril will be resumed. REVIEW OF SYSTEMS: Constitutional: No documented fever, no chills, no night sweats. No weight change. No weakness, fatigue or lethargy. No daytime sleepiness. HEENT: No headache. No blurred vision or double vision, no loss of vision. No loss of Hearing, no ringing in the ears, no dizziness. No nasal drainage or congestion. No epistaxis. No sore throat. Lungs: No shortness of breath, no cough, no sputum production. No wheezing. Reports dyspnea with activity. Cardiovascular: No chest pain, no lower extremity edema. No palpitations. No paroxysmal nocturnal dyspnea. No orthopnea. No lightheadedness or dizziness. No syncopal episodes. Abdominal: Reports no abdominal pain. No nausea, vomiting. No diarrhea. No constipation. No bloody or tarry stools reports loss of appetite. Genitourinary: No dysuria, increased frequency, urgency. No urinary retention. Musculoskeletal: No myalgias. No muscle weakness, positive for gait dysfunction, severe pain in the right hip continues. Integumentary: No wounds, no rash or pruritus. No unusual bruising. No change in hair or nails,right foot callus Neurologic: No aphasia. No facial droop. No change in mentation. No head injury. No headache. No paralysis. No paresthesia. Psychiatric: depression. anxiety no mood swings. Endocrine: Fluctuation of blood glucose level. PHYSICAL EXAMINATION: General: 70-year-old -L[place]ian female laying down in bed in mild distress due to right hip pain. HEENT: Head is atraumatic, normocephalic, pupils were equal round reactive to light and accommodation, sclera nonicteric, conjunctivae were pale, mucous membranes of the mouth are somewhat dry. Neck: Supple, no JVP, normal carotid upstroke bilaterally, no lymphadenopathy. Chest: Decreased breath sounds at the bases, few rhonchi, no extremity wheezes, no chest wall tenderness, no intercostal retractions. Heart: First heart sound is normal, second heart sounds normal there is systolic ejection murmur 2/6 located in the left sternal border. Abdomen: Soft, nontender, nondistended, positive bowel sounds. Extremities: There is no edema no calf tenderness DP +1 bilaterally, right lower extremity shorter with external rotation due to right hip fracture. Neurologic examination: Patient is awake alert and oriented x3, cranial nerves II-12 appear grossly intact, muscle power was not done due to pain in the right hip. ASSESSMENT AND PLAN: 1. Right intertrochanteric hip fractur status post right hip medullary nail fixation. Continue aspirin 325 mg twice daily for DVT prophylaxis, continue Olin 7.5 one every 4 hours and Dilaudid as needed, continue Zofran 4 mg IV push every 6 hours as needed, monitor the patient very closely, may discontinue Wilson catheter, discontinue IV fluids. 2. Diabetes mellitus type 1 with diabetic polyneuropathy. Continue patient on Lantus 16 units at bedtime along with Humalog 6 units before each meal along with a sliding scale insulin. Monitor the patient blood glucose level before each meal and at bedtime. 3. Hypertension and hypertensive cardio vascular disease. Continue Coreg 12.5 mg orally twice every day, continue hydralazine 50 milligrams orally twice every day (parameters to hold if systolic blood pressure less than 110), resume lisinopril 5 mg daily. 4. Hyperlipidemia. Continue patient on Lipitor 40 mg orally once every day. 5. CAD post-PCI in 2010. Continue patient on Coreg 12.5 mg orally twice every day, continue Lipitor 40 mg orally once every day, discontinue aspirin prior to surgical intervention. 6. History of PAD with a recent callus of the right foot, right foot diabetic foot ulcer following at the [facility]. Appears to be stable. 7. History of narcolepsy never treated. 8. DVT prophylaxis. Continue aspirin. 9. GI prophylaxis. Continue Protonix 40 mg oral every 24 hours. 10. Patient is full code. DISCHARGE PLAN Subacute rehab likely. Currently, [facility] is in place. Impression and plan of care have been directed as dictated by the signing physician. Faith Camarillo nurse practitioner acting as scribe for signing physician. Objective - Vital Signs Vital signs: Vital Signs Temp 99.5 F 08/17/20 07:29 Pulse 87 08/17/20 07:29 Resp 16 08/17/20 07:29 BP 142/72 08/17/20 07:29 Pulse Ox 94 L 08/17/20 07:29 Intake & Output 08/16/20 08/17/20 08/17/20 18:59 06:59 18:59 Intake Total 600 241 Output Total 300 400 Balance 300 -159 Intake: IV 600 1 Oral 240 Output: Urine 300 200 Estimated Blood Loss 200 Other: Voiding Method Indwelling Catheter Indwelling Catheter - Labs CBC & Chem 7: 08/16/20 21:01 Labs: Abnormal Lab Results - Last 24 Hours (Table) 08/16/20 08/16/20 08/16/20 Range/Units 11:27 16:24 20:38 RBC (4.10-5.20) X 10*6/uL Hgb (12.0-15.0) g/dL Hct (37.2-46.3) % MCH (27.0-32.0) pg MCHC (32.0-37.0) g/dL RDW (11.5-14.5) % MPV (9.5-12.2) fL POC Glucose (mg/dL) 104 H 120 H 150 H (75-99) mg/dL 08/16/20 Range/Units 21:01 RBC 3.46 L (4.10-5.20) X 10*6/uL Hgb 9.3 L (12.0-15.0) g/dL Hct 30.5 L (37.2-46.3) % MCH 26.9 L (27.0-32.0) pg MCHC 30.5 L (32.0-37.0) g/dL RDW 15.8 H (11.5-14.5) % MPV 12.5 H (9.5-12.2) fL POC Glucose (mg/dL) (75-99) mg/dL
[2020-08-17 14:58] LABS: Glucose,Whole Blood 145 mg/dL (75-99)
--- NOTE | 2020-08-17 15:06 | P.PN ---
Subjective This is a pleasant 70-year-old female past medical history significant for diabetes mellitus type 1, diabetic neuropathy, hypertension, paroxysmal atrial fibrillation, CAD status post PCI of the PDA in 2010, DVT, recent weight loss, CKD, anemia. She follows in the office with Dr Hernandez. We have been asked to see in consultation for cardiac clearance. She sustained a fall in her basement today when she was coming back up the steps on her sock slipped on the steps and she fell on her right hip. She had significant pain in the right hip and has been unable to ambulate since that time. She was taken to [facility] for further evaluation. She states she was told surgical intervention at her right hip would have to be performed by a surgeon in [place], [place]. She states she did not wish to be transferred out of the area. She was transferred to [facility] for further evaluation. Patient was found to have Right hip intertrochanteric hip fracture.orthopedics was following the patient in June plan for surgical intervention with the right hip intramedullary nail fixation for intertrochanteric hip fracture 08/16/2020. 08/17/2020: Patient is postop day 1 right hip intramedullary nail fixation for intertrocha nteric hip fracture. Patient remains nonweightbearing on the right lower extremity. She denies any chest pain, shortness of breath, lightheadedness, dizziness, syncope. Blood pressure 142/72, heart rate 87, afebrile, maintaining oxygen saturations on room air. She is currently being maintained on aspirin 325 mg twice a day atorvastatin 40 mg daily, carvedilol 12.5 mg twice a day, Lovenox, hydralazine 50 mg 3 times a day, lisinopril 5 mg daily. GENERAL: Well-appearing, well-nourished and in no acute distress. NECK: Supple without JVD or thyromegaly. LUNGS: Breath sounds clear to auscultation bilaterally. Respiration equal and unlabored. No wheezes, rales or rhonchi. HEART: Regular rate and rhythm without murmurs, rubs or gallops. S1 and S2 heard. EXTREMITIES: Normal range of motion, no edema. No clubbing or cyanosis. Peripheral pulses intact. Right hip dressing is clean, dry, intact. ASSESSMENT Mechanical Fall Right hip intertrochanteric hip fracture. Type 1 diabetes mellitus History of coronary artery disease with prior PCI to RCA Paroxysmal atrial fibrillation, currently normal sinus rhythm Anemia Hypertension Hyperlipidemia PLAN: Patient is postop day 1. No further cardiac testing at this time Please continue patient's home cardiac medications. Objective - Vital Signs Vital signs: Vital Signs Temp 99.5 F 08/17/20 07:29 Pulse 87 08/17/20 07:29 Resp 16 08/17/20 08:00 BP 142/72 08/17/20 07:29 Pulse Ox 94 L 08/17/20 07:29 Intake & Output 08/16/20 08/17/20 08/17/20 18:59 06:59 18:59 Intake Total 600 241 Output Total 300 400 Balance 300 -159 Intake: IV 600 1 Oral 240 Output: Urine 300 200 Estimated Blood Loss 200 Other: Voiding Method Indwelling Catheter Indwelling Catheter Indwelling Catheter - Labs CBC & Chem 7: 08/16/20 21:01 Labs: Abnormal Lab Results - Last 24 Hours (Table) 08/16/20 08/16/20 08/16/20 Range/Units 16:24 20:38 21:01 RBC 3.46 L (4.10-5.20) X 10*6/uL Hgb 9.3 L (12.0-15.0) g/dL Hct 30.5 L (37.2-46.3) % MCH 26.9 L (27.0-32.0) pg MCHC 30.5 L (32.0-37.0) g/dL RDW 15.8 H (11.5-14.5) % MPV 12.5 H (9.5-12.2) fL POC Glucose (mg/dL) 120 H 150 H (75-99) mg/dL 08/17/20 Range/Units 14:51 RBC (4.10-5.20) X 10*6/uL Hgb (12.0-15.0) g/dL Hct (37.2-46.3) % MCH (27.0-32.0) pg MCHC (32.0-37.0) g/dL RDW (11.5-14.5) % MPV (9.5-12.2) fL POC Glucose (mg/dL) 145 H (75-99) mg/dL
[2020-08-17] MEDS: lisinopriL 5 MG TAB PO SCH (15:20)
[2020-08-17 16:26] LABS: Glucose,Whole Blood 147 mg/dL (75-99)
--- NOTE | 2020-08-17 18:20 | CONS ---
DATE OF CONSULTATION: 08/17/2020 This is a 70-year-old female she is known to me from the wound clinic. She had a callus formation on the plantar aspect of the right foot. We have been treating with local wound care and also patient had a blister on the right foot big toe. The patient fell down at home and had a fractured hip. Patient had surgery done. MEDICAL HISTORY: History of diabetes, hypertension, coronary artery disease. PHYSICAL EXAMINATION: Patient was seen in her room. NECK: Supple. Trachea central. CHEST: Clear. ABDOMEN: Soft. Femorals are 1+. PT/DP by the Doppler. The callus on the plantar aspect is almost healed. No discharge or redness noted. Right big toe is externalizing. No discharge or redness noted. PLAN: Plain dressing of the right big toe. Keep it dry and the patient will be seen in the wound clinic in 2 weeks. MMODL / IJN: [id number] / MTDD
[2020-08-17 20:35] LABS: Glucose,Whole Blood 282 mg/dL (75-99)
[2020-08-17] MEDS: HYDROcodone/APAP 7.5-325MG 1 EACH TAB PO PRN (20:39)
[2020-08-17] MEDS: INSULIN DETEMIR (LEVEMIR) 100 UNIT/ML SYR SQ SCH (20:50)
[2020-08-18 07:10] LABS: Glucose,Whole Blood 61 mg/dL (75-99)
[2020-08-18] MEDS: INSULIN ASPART (NovoLOG) 100 UNIT/ML VIAL SQ SCH ×7 (07:23→22:22)
[2020-08-18] MEDS: CYANOCOBALAMIN 500 MCG TAB PO SCH (07:39)
[2020-08-18] MEDS: ATORVASTATIN 40 MG TAB PO SCH (07:40)
[2020-08-18] MEDS: carvediloL 12.5 MG TAB PO SCH ×2 (07:40→17:42)
[2020-08-18] MEDS: HYDROcodone/APAP 7.5-325MG 1 EACH TAB PO PRN (07:40)
[2020-08-18] MEDS: SENNOSIDES-DOCUSATE SODIUM 1 EACH TAB PO SCH ×2 (07:40→22:21)
[2020-08-18] MEDS: PANTOPRAZOLE 40 MG TABLET PO SCH (07:40)
[2020-08-18] MEDS: lisinopriL 5 MG TAB PO SCH (07:40)
[2020-08-18] MEDS: hydrALAZINE HCL 50 MG TAB PO SCH ×3 (07:40→22:22)
[2020-08-18] MEDS: CHOLECALCIFEROL 25 MCG (1000 IU) TABLET PO SCH (07:40)
[2020-08-18] MEDS: ENOXAPARIN 30 MG/0.3 ML SYRINGE SQ SCH ×2 (07:40→22:21)
[2020-08-18] MEDS: ASPIRIN 325 MG TAB PO SCH ×2 (07:41→22:23)
--- NOTE | 2020-08-18 08:26 | P.PN ---
Progress Note - Text Progress Note Date: 08/18/20 Postoperative day #2 Patient is seen and examined today at bedside. The patient has some pain around the surgical site as expected. Pain is being controlled with medication. She actually has some improved motion and her right hip. Her pain is settling down. She denies any chest pain or shortness of breath or other issues. Physical Exam Afebrile with stable vital signs Abdomen is soft nontender. Chest has good excursion deep and space expiration The incision site is clean dry and intact. No erythema there is no purulence. Her thigh and calf are soft nontender she has good dorsiflexion plantar flexion and EHL Extremities have not had neurologic change from prior to surgery. Sensory is intact in her leg and her incision site looks good Calves and thighs were soft nontender without evidence of DVT. Assessment/Plan Postoperative day #2 status post intramedullary hip screw for right hip intertrochanteric basicervical fracture due to a fall Patient is progressing as expected from the surgery. We will continue to increase the patient's mobilization with therapy. She would like to go home from the hospital and she has significant help I think that could be reasonable. She needs to be more mobile and safe in out of bed on her feet and hopefully she will achieve this by tomorrow. She should continue to work with physical therapy. The pain is better controlled and we'll have discharge planning work on potential for discharge home tomorrow with appropriate resource. We will continue pain control with oral or IV medications. We'll continue to follow patient closely.
--- NOTE | 2020-08-18 09:03 | P.PN ---
Subjective Progress Note Date: 08/18/20 HISTORY OF PRESENT ILLNESS: This is a 70 -year-old -[place] Citizen female with a previous medical history significant for hypertension and hypertensive cardiovascular disease, hyperlipidemia, diabetes mellitus type 1 with diabetic polyneuropathy, PAD, CAD post PCI in 2010 ,history of narcolepsy, history of osteoarthritis, patient was recently hospitalized at [facility] about few days ago after she was admitted for diabetic ketoacidosis with blood glucose level of 668, she was treated with insulin drip as well as IV fluid resuscitation after she was found to have an acute kidney injury and she was discharged home on Lantus 16 units at bedtime along with the Humalog 6 units with each meal plus the sliding scale insulin apparently the patient fell at home while she was going down the basement when she missed her steps and landed on the right side of her body developed to have a significant pain in the right hip she could not move around, she eventually managed to get some help, patient ended up getting transferred to [facility] where she was evaluated by computed tomography scan of the hip and an x-ray that showed right intertrochanteric hip fracture she was a dmitted under my service and was supposed to be seen in consultation by Dr. Bear however for some reason the patient declined to be seen by an orthopedic surgeon outside of [place] and she elected to be transferred to [facility] for evaluation by orthopedic surgery locally patient was transferred as a direct admission from the emergency department at [facility] to [facility] consult and orthopedic on-call. 08/16: Patient has been seen by orthopedics with recommendations for right hip medullary nail fixation for intertrochanteric hip fracture which is scheduled for surgery today at 5 PM. Cardiology consult is in place for clearance for surgery. Blood sugar this morning was 95 prior to that she was running 235-276. Patient has been afebrile, heart rate 84, blood pressure 103/63, pulse ox 98% on room air. Parameters placed on hydralazine to hold if blood pressure less than 110. 08/17: Patient complains of having a lot of pain #8 out of 10. She received [place], patient starts will obtain Dilaudid for her now. Patient is on aspirin 325 mg twice a day for anticoagulation. Wilson catheter is in place expect this to be removed today. Patient verbalizes that she plans to go home but one will be determined once patient is worked with physical therapy. Blood sugars have been running between 85 and 150. Repeat hemoglobin is at 9.3, platelet count 212, WBC 5.1. She has been afebrile, heart rate 87, blood pressure 142/72 and pulse ox 94% on room air. Lisinopril will be resumed. 08/18: Patient has been afebrile, heart rate 80, blood pressure 165/81, pulse ox 96% on room air. Pain is better controlled today. Sugar last evening was 61 and patient encouraged to take at bedtime snack. Therapies have evaluated patient and recommended subacute rehab however patient is declining rehab and plans to return home with her caregivers and family. Her son lives next door and she does have family support. Discharge plan will be for tomorrow. REVIEW OF SYSTEMS: Constitutional: No documented fever, no chills, no night sweats. No weight change. No weakness, fatigue or lethargy. No daytime sleepiness. HEENT: No headache. No blurred vision or double vision, no loss of vision. No loss of Hearing, no ringing in the ears, no dizziness. No nasal drainage or congestion. No epistaxis. No sore throat. Lungs: No shortness of breath, no cough, no sputum production. No wheezing. Reports dyspnea with activity. Cardiovascular: No chest pain, no lower extremity edema. No palpitations. No paroxysmal nocturnal dyspnea. No orthopnea. No lightheadedness or dizziness. No syncopal episodes. Abdominal: Reports no abdominal pain. No nausea, vomiting. No diarrhea. No constipation. No bloody or tarry stools reports loss of appetite. Genitourinary: No dysuria, increased frequency, urgency. No urinary retention. Musculoskeletal: No myalgias. No muscle weakness, positive for gait dysfunction, pain in the right hip, controlled. Integumentary: No wounds, no rash or pruritus. No unusual bruising. No change in hair or nails,right foot callus Neurologic: No aphasia. No facial droop. No change in mentation. No head injury. No headache. No paralysis. No paresthesia. Psychiatric: depression. anxiety no mood swings. Endocrine: Fluctuation of blood glucose level. PHYSICAL EXAMINATION: General: 70-year-old -[place] Citizen female laying down in bed in no acute distress HEENT: Head is atraumatic, normocephalic, pupils were equal round reactive to light and accommodation, sclera nonicteric, mucous membranes of the mouth are somewhat dry. Neck: Supple, no JVP, normal carotid upstroke bilaterally, no lymphadenopathy. Chest: Decreased breath sounds at the bases, few rhonchi, no extremity wheezes, no chest wall tenderness, no intercostal retractions. Heart: First heart sound is normal, second heart sounds normal there is systolic ejection murmur 2/6 located in the left sternal border. Abdomen: Soft, nontender, nondistended, positive bowel sounds. Extremities: There is no edema no calf tenderness DP +1 bilaterally, wound to the right hip area, dressing in place. Neurologic examination: Patient is awake alert and oriented x3, cranial nerves II-12 appear grossly intact, muscle power was not done due to pain in the right hip. ASSESSMENT AND PLAN: 1. Right intertrochanteric hip fractur status post right hip medullary nail fixation. Continue aspirin 325 mg twice daily for DVT prophylaxis, continue [place] 7.5 one every 4 hours and Dilaudid as needed, continue Zofran 4 mg IV push every 6 hours as needed, monitor the patient very closely. 2. Diabetes mellitus type 1 with diabetic polyneuropathy. Continue patient on Lantus 16 units at bedtime along with Humalog 6 units before each meal along with a sliding scale insulin. Monitor the patient blood glucose level before each meal and at bedtime. 3. Hypertension and hypertensive cardio vascular disease. Continue Coreg 12.5 mg orally twice every day, continue hydralazine 50 milligrams orally twice every day (parameters to hold if systolic blood pressure less than 110), resume lisinopril 5 mg daily. 4. Hyperlipidemia. Continue patient on Lipitor 40 mg orally once every day. 5. CAD post-PCI in 2010. Continue patient on Coreg 12.5 mg orally twice every day, continue Lipitor 40 mg orally once every day, discontinue aspirin prior to surgical intervention. 6. History of PAD with a recent callus of the right foot, right foot diabetic foot ulcer following [facility]. Appears to be stable. 7. History of narcolepsy never treated. 8. DVT prophylaxis. Continue aspirin. 9. GI prophylaxis. Continue Protonix 40 mg oral every 24 hours. 10. Patient is full code. DISCHARGE PLAN Home with [facility] is in place. Impression and plan of care have been directed as dictated by the signing physician. Faith Camarillo nurse practitioner acting as scribe for signing physician. Objective - Vital Signs Vital signs: Vital Signs Temp 99.6 F 08/18/20 07:25 Pulse 80 08/18/20 07:25 Resp 16 08/18/20 07:25 BP 165/81 08/18/20 07:25 Pulse Ox 96 08/18/20 07:25 Intake & Output 08/17/20 08/18/20 08/18/20 18:59 06:59 18:59 Intake Total 450 240 Output Total 500 Balance -50 240 Intake: IV 450 Sodium Chloride 0.9% 1, 450 000 ml @ 75 mls/hr IV . [id number] [facility] Rx#:[id number] Oral 240 Output: Urine 500 Straight 500 Other: Voiding Method Indwelling Catheter # Voids 1 # Bowel Movements 1 - Labs CBC & Chem 7: 08/16/20 21:01 Labs: Abnormal Lab Results - Last 24 Hours (Table) 08/17/20 08/17/20 08/17/20 Range/Units 14:51 16:25 20:33 POC Glucose (mg/dL) 145 H 147 H 282 H (75-99) mg/dL 08/18/20 Range/Units 07:09 POC Glucose (mg/dL) 61 L (75-99) mg/dL
[2020-08-18 09:09] LABS: Basophils % (A) 0 %; Eosinophils # (A) 0.1 k/uL (0-0.7); Eosinophils % (A) 2 %; HCT 29.2 % (34.0-46.0); HGB 9.3 gm/dL (11.4-16.0); Lymphocytes # (A) 0.8 k/uL (1.0-4.8); Lymphocytes % (A) 14 %; MCH 27.9 pg (25.0-35.0); MCHC 31.7 g/dL (31.0-37.0); MCV 88.1 fL (80.0-100.0); Mean Platelet Volume 9.3; Monocytes # (A) 0.5 k/uL (0-1.0); Monocytes % (A) 9 %; Neutrophils # (A) 4.3 k/uL (1.3-7.7); Neutrophils % (A) 74 %; Platelet Count 221 k/uL (150-450); RBC 3.32 m/uL (3.80-5.40); RDW 15.5 % (11.5-15.5); WBC 5.9 k/uL (3.8-10.6)
[2020-08-18 11:41] LABS: Glucose,Whole Blood 71 mg/dL (75-99)
[2020-08-18 12:01] LABS: Glucose,Whole Blood 94 mg/dL (75-99)
--- NOTE | 2020-08-18 12:41 | P.PN ---
Subjective This is a pleasant 70-year-old female past medical history significant for diabetes mellitus type 1, diabetic neuropathy, hypertension, paroxysmal atrial fibrillation, CAD status post PCI of the PDA in 2010, DVT, recent weight loss, CKD, anemia. She follows in the office with Dr Hernandez. We have been asked to see in consultation for cardiac clearance. She sustained a fall in her basement today when she was coming back up the steps on her sock slipped on the steps and she fell on her right hip. She had significant pain in the right hip and has been unable to ambulate since that time. She was taken to [facility] for further evaluation. She states she was told surgical intervention at her right hip would have to be performed by a surgeon in [place], [place]. She states she did not wish to be transferred out of the area. She was transferred to [facility] for further evaluation. Patient was found to have Right hip intertrochanteric hip fracture.orthopedics was following the patient in June plan for surgical intervention with the right hip intramedullary nail fixation for intertrochanteric hip fracture 08/16/2020. 08/18/2020: Patient is postop day 2 right hip intramedullary nail fixation for intertrocha nteric hip fracture. Patient remains nonweightbearing on the right lower extremity. She denies any chest pain, shortness of breath, lightheadedness, dizziness, syncope. Blood pressure 165/81, heart rate 80, afebrile, maintaining oxygen saturations 96% on room air. Laboratory data reviewed, WBC 5.9, hemoglobin 9.3, platelets 221. Patient was hypoglycemic this morning blood sugar 61. She is currently being maintained on aspirin 325 mg twice a day atorvastatin 40 mg daily, carvedilol 12.5 mg twice a day, Lovenox, hydralazine 50 mg 3 times a day, lisinopril 5 mg daily. GENERAL: Well-appearing, well-nourished and in no acute distress. NECK: Supple without JVD or thyromegaly. LUNGS: Breath sounds clear to auscultation bilaterally. Respiration equal and unlabored. No wheezes, rales or rhonchi. HEART: Regular rate and rhythm without murmurs, rubs or gallops. S1 and S2 heard. EXTREMITIES: Normal range of motion, no edema. No clubbing or cyanosis. Peripheral pulses intact. Right hip dressing is clean, dry, intact. ASSESSMENT Mechanical Fall Right hip intertrochanteric hip fracture. Type 1 diabetes mellitus History of coronary artery disease with prior PCI to RCA Paroxysmal atrial fibrillation, currently normal sinus rhythm Anemia Hypertension Hyperlipidemia PLAN: Patient is postop day 2. No further cardiac testing at this time Please continue patient's home cardiac medications. We will sign off at this time. Please recheck with any further questions or concerns. Patient to follow up outpatient with Dr. Rubio Objective - Vital Signs Vital signs: Vital Signs Temp 99.6 F 08/18/20 07:25 Pulse 80 08/18/20 07:25 Resp 16 08/18/20 07:25 BP 165/81 08/18/20 07:25 Pulse Ox 96 08/18/20 07:25 Intake & Output 08/17/20 08/18/20 08/18/20 18:59 06:59 18:59 Intake Total 450 240 Output Total 500 Balance -50 240 Intake: IV 450 Sodium Chloride 0.9% 1, 450 000 ml @ 75 mls/hr IV . [id number] [facility] Rx#:[id number] Oral 240 Output: Urine 500 Straight 500 Other: Voiding Method Indwelling Catheter # Voids 1 # Bowel Movements 1 - Labs CBC & Chem 7: 08/18/20 08:00 Labs: Abnormal Lab Results - Last 24 Hours (Table) 08/17/20 08/17/20 08/17/20 Range/Units 14:51 16:25 20:33 POC Glucose (mg/dL) 145 H 147 H 282 H (75-99) mg/dL 08/18/20 Range/Units 07:09 POC Glucose (mg/dL) 61 L (75-99) mg/dL
[2020-08-18 16:52] LABS: Glucose,Whole Blood 233 mg/dL (75-99)
[2020-08-18 22:14] LABS: Glucose,Whole Blood 280 mg/dL (75-99)
[2020-08-18] MEDS: INSULIN DETEMIR (LEVEMIR) 100 UNIT/ML SYR SQ SCH (22:22)
[2020-08-19 03:58] LABS: Glucose,Whole Blood 176 mg/dL (75-99)
[2020-08-19 06:57] LABS: Glucose,Whole Blood 100 mg/dL (75-99)
[2020-08-19] MEDS: INSULIN ASPART (NovoLOG) 100 UNIT/ML VIAL SQ SCH ×7 (08:18→22:03)
--- NOTE | 2020-08-19 08:37 | P.DS ---
Providers Date of admission: 08/15/20 12:26 Expected date of discharge: 08/19/20 Attending physician: Mary Heath Consults: 08/15/20 14:34 Consult Physician Stat Consulting Provider: Stefano Hernandez Consult Reason/Comments: cardiac clearance for hip surgery Do you want consulting provider notified?: Yes 08/15/20 14:42 Consult Physician Stat Consulting Provider: Kole Kilgore Consult Reason/Comments: fractured right hip Do you want consulting provider notified?: Yes 08/17/20 08:20 Consult Physician Routine Consulting Provider: Garcia Rodrigez Consult Reason/Comments: wound care Do you want consulting provider notified?: Yes Primary care physician: Mary Heath - Discharge Diagnosis(es) (1) Fracture, intertrochanteric, right femur Current Visit: Yes Status: Acute (2) Right hip pain Current Visit: Yes Status: Acute (3) Inability to ambulate due to hip Current Visit: Yes Status: Acute (4) Wound of foot Current Visit: Yes Status: Acute (5) Insulin dependent diabetes mellitus Current Visit: Yes Status: Acute (6) History of coronary artery disease Current Visit: Yes Status: Acute (7) History of DVT (deep vein thrombosis) Current Visit: Yes Status: Acute (8) Hyperlipidemia Current Visit: Yes Status: Acute (9) Hypertension Current Visit: Yes Status: Acute (10) Vascular disorder Current Visit: Yes Status: Acute Hospital Course: This is a pleasant 70-year-old female who presented with right intertrochanteric hip fracture status post fall. She was admitted for further treatment and evaluation. She underwent a right hip intramedullary nail fixation for her intertrochanteric hip fracture. She has continued to improve following surgical intervention. The patient tolerated the procedure well and did well postoperatively. She has remained nonweightbearing on the right lower extremity. She feels her right lower extremity pain has continued to improve. She has been working with physical therapy. She feels she is ready for discharge today. Condition on day of discharge stable. Patient will be discharged [facility] rehabilitation facility. Patient was cleared preoperatively for surgery by medicine and cardiology. Patient currently denies any nausea, vomiting, fever, or chills. Patient is eating and voiding freely without difficulty. She has had multiple bowel movements since her admission to the hospital. Patient may shower Optifoam dressing intact. Patient may remove Optifoam dressing in 3 days and shower without a dressing at that time. Patient should refrain from driving until at least after their first follow-up appointment in the office. She will remain nonweightbearing on the right lower extremity. She may apply ice for comfort support of the right hip as needed. She is encouraged to use a walker, wheelchair or other 88 and ambulation as needed. MAPS has been previously reviewed. An "Opiod Start Talking" Form has been signed and placed in the patient's chart. A prescription has been written for [place] 7.5 mg/325 mg 1 tab every 4 hours as needed for pain, dispensed #18. She is also given prescriptions for aspirin 325 mg 1 tab by mouth twice a day a prescription for Senokot twice a day as needed for constipation. Patient's other medical diagnoses include insulin-dependent diabetes mellitus, history of coronary artery disease, history of DVT, hyperlipidemia, hypertension, and vascular disorder. Plan to be seen and examined by Dr. Rodrigez in the outpatient setting for continued wound care for her right foot. Physical Exam on day of discharge: Status post surgical day number 3 Patient is examined lying in bed Patient is awake and alert, and oriented 3 Vital signs stable Good chest excursion with deep inspiration and expiration No signs or symptoms of DVT; no calf pain Lower extremity cuffs in place bilaterally Dressing of the right hip is clean, dry, and intact; no erythema, purulence, or signs of infection No pain with palpation over the surgical sites Full range of motion of ankles bilaterally Dorsiflexion, plantarflexion, and extensor hallucis longus positive sustained bilaterally Neurovascularly intact bilateral lower extremities Capillary refill less than 2 seconds bilateral lower extremities Procedures: Right hip intramedullary nail fixation for right intertrochanteric hip fracture Patient Condition at Discharge: Stable Plan - Discharge Summary Discharge Rx Participant: No New Discharge Prescriptions: New Aspirin 325 mg PO BID tab Sennosides-Docusate Sodium [Senokot-S] 2 each PO HS tab HYDROcodone/APAP 7.5-325MG [Cran[place] 7.5-325] 1 each PO Q4H PRN #18 tab PRN Reason: Pain Continue Cholecalciferol [Vitamin D3 (25 Mcg = 1000 Iu)] 2,000 mcg PO DAILY hydrALAZINE HCL [Apresoline] 50 mg PO TID Carvedilol [Coreg] 12.5 mg PO BID Insulin Lispro [humaLOG Kwikpen] 6 unit SQ AC-TID Atorvastatin Calcium [Lipitor] 40 mg PO DAILY lisinopriL [Zestril] 5 mg PO DAILY Cyanocobalamin (Vitamin B-12) [Vitamin B-12] 1,000 mcg PO DAILY Insulin Glargine,Hum.rec.anlog [Toujeo Sadafalishaar] 15 units SQ HS Famotidine 10 mg PO DAILY PRN PRN Reason: gerds Insulin Lispro [humaLOG Kwikpen] See Protocol SQ AC-TID Discontinued Aspirin 81 mg PO DAILY chew Discharge Medication List Cholecalciferol [Vitamin D3 (25 Mcg = 1000 Iu)] 2,000 mcg PO DAILY 01/04/20 [History] Carvedilol [Coreg] 12.5 mg PO BID 04/15/20 [History] hydrALAZINE HCL [Apresoline] 50 mg PO TID 04/15/20 [History] Atorvastatin Calcium [Lipitor] 40 mg PO DAILY 08/15/20 [History] Cyanocobalamin (Vitamin B-12) [Vitamin B-12] 1,000 mcg PO DAILY 08/15/20 [History] Famotidine 10 mg PO DAILY PRN 08/15/20 [History] Insulin Glargine,Hum.rec.anlog [Toujeo Solostar] 15 units SQ HS 08/15/20 [History] lisinopriL [Zestril] 5 mg PO DAILY 08/15/20 [History] Insulin Lispro [humaLOG Kwikpen] 6 unit SQ AC-TID 08/16/20 [History] Insulin Lispro [humaLOG Kwikpen] See Protocol SQ AC-TID 08/16/20 [History] Aspirin 325 mg PO BID tab 08/19/20 [Rx] HYDROcodone/APAP 7.5-325MG [Cran[place] 7.5-325] 1 each PO Q4H PRN #18 tab 08/19/20 [Rx] Sennosides-Docusate Sodium [Senokot-S] 2 each PO HS tab 08/19/20 [Rx] Follow up Appointment(s)/Referral(s): Stefano Hernandez MD [STAFF PHYSICIAN] - 2 Weeks Mary Heath MD [Primary Care Provider] - 1 Week Indra Tran PAC [PHYSICIAN BINDING NICKER] - 2 Weeks (Patient may follow-up with Indra Tran PA-C or Dr. Richard Kilgore at [facility] in 2-3 weeks following discharge. ) [facility], [REFERRING] - As Needed Activity/Diet/Wound Care/Special Instructions: 1. Nonweightbearing on the right lower extremity 2. Keep dressing over the right hip clean, dry, and intact 3. Patient may shower with dressing intact over the right hip 4. If dressing remains dry over the next 72 hours, patient may remove dressing and shower without a dressing at that time 5. Patient may apply ice over the right hip for comfort support as needed 6. Patient is encouraged using a walking aid to aid in ambulation as needed 7. Take medications as prescribed Discharge Disposition: TRANSFER TO SNF/ECF
[2020-08-19] MEDS: hydrALAZINE HCL 50 MG TAB PO SCH ×3 (08:43→22:01)
[2020-08-19] MEDS: carvediloL 12.5 MG TAB PO SCH ×2 (08:43→17:25)
[2020-08-19] MEDS: ENOXAPARIN 30 MG/0.3 ML SYRINGE SQ SCH ×2 (08:43→22:02)
[2020-08-19] MEDS: lisinopriL 5 MG TAB PO SCH (08:43)
[2020-08-19] MEDS: PANTOPRAZOLE 40 MG TABLET PO SCH (08:43)
[2020-08-19] MEDS: CYANOCOBALAMIN 500 MCG TAB PO SCH (08:43)
[2020-08-19] MEDS: ATORVASTATIN 40 MG TAB PO SCH (08:43)
[2020-08-19] MEDS: ASPIRIN 325 MG TAB PO SCH ×2 (08:44→22:01)
[2020-08-19] MEDS: SENNOSIDES-DOCUSATE SODIUM 1 EACH TAB PO SCH ×2 (08:44→22:01)
[2020-08-19] MEDS: CHOLECALCIFEROL 25 MCG (1000 IU) TABLET PO SCH (08:44)
[2020-08-19 09:16] LABS: HCT 29.1 % (34.0-46.0); HGB 9.2 gm/dL (11.4-16.0); MCHC 31.8 g/dL (31.0-37.0); MCV 88.1 fL (80.0-100.0); Mean Platelet Volume 8.3; Platelet Count 264 k/uL (150-450); RDW 15.5 % (11.5-15.5); WBC 5.8 k/uL (3.8-10.6)
[2020-08-19 09:39] LABS: ALT 11 U/L (4-34); AST 21 U/L (14-36); African American GFR (CKD) 72 (>60 ml/min/1.73 sqM); Albumin 2.4 g/dL (3.5-5.0); Alkaline Phosphatase 63 U/L (38-126); Anion Gap 3 mmol/L; Blood Urea Nitrogen 21 mg/dL (7-17); Calcium 8.5 mg/dL (8.4-10.2); Carbon Dioxide 27 mmol/L (22-30); Chloride 105 mmol/L (98-107); Globulin 2.5 g/dL; Glucose 119 mg/dL (74-99); Non-African American GFR(CKD) 63 (>60 ml/min/1.73 sqM); Potassium 4.5 mmol/L (3.5-5.1); Sodium 135 mmol/L (137-145); Total Bilirubin 0.3 mg/dL (0.2-1.3); Total Protein 4.9 g/dL (6.3-8.2)
[2020-08-19 11:50] LABS: Glucose,Whole Blood 102 mg/dL (75-99)
--- NOTE | 2020-08-19 11:52 | P.DS ---
Providers Date of admission: 08/15/20 12:26 Expected date of discharge: 08/19/20 Attending physician: Mary Heath Consults: 08/15/20 14:34 Consult Physician Stat Consulting Provider: Stefano Hernandez Consult Reason/Comments: cardiac clearance for hip surgery Do you want consulting provider notified?: Yes 08/15/20 14:42 Consult Physician Stat Consulting Provider: Kole Kilgore Consult Reason/Comments: fractured right hip Do you want consulting provider notified?: Yes 08/17/20 08:20 Consult Physician Routine Consulting Provider: Garcia Rodrigez Consult Reason/Comments: wound care Do you want consulting provider notified?: Yes Primary care physician: Mary Heath Hospital Course: HISTORY OF PRESENT ILLNESS: This is a 70 -year-old -[place] female with a previous medical history significant for hypertension and hypertensive cardiovascular disease, hyperlipidemia, diabetes mellitus type 1 with diabetic polyneuropathy, PAD, CAD post PCI in 2010 ,history of narcolepsy, history of osteoarthritis, patient was recently hospitalized at [facility] about few days ago after she was admitted for diabetic ketoacidosis with blood glucose level of 668, she was treated with insulin drip as well as IV fluid resuscitation after she was found to have an acute kidney injury and she was discharged home on Lantus 16 units at bedtime along with the Humalog 6 units with each meal plus the sliding scale insulin apparently the patient fell at home while she was going down the basement when she missed her steps and landed on the right side of her body developed to have a significant pain in the right hip she could not move around, she eventually managed to get some help, patient ended up getting transferred to [facility] where she was evaluated by computed tomography scan of the hip and an x-ray that showed right intertrochanteric hip fracture she was admitted under my service and was supposed to be seen in consultation by Dr. Bear however for some reason the patient declined to be seen by an orthopedic surgeon outside of [place] and she elected to be transferred to [facility] for evaluation by orthopedic surgery locally patient was transferred as a direct admission from the emergency department at [facility] to [facility] consult and orthopedic on-call. 08/16: Patient has been seen by orthopedics with recommendations for right hip medullary nail fixation for intertrochanteric hip fracture which is scheduled for surgery today at 5 PM. Cardiology consult is in place for clearance for surgery. Blood sugar this morning was 95 prior to that she was running 235-276. Patient has been afebrile, heart rate 84, blood pressure 103/63, pulse ox 98% on room air. Parameters placed on hydralazine to hold if blood pressure less than 110. 08/17: Patient complains of having a lot of pain #8 out of 10. She received Epsom, patient starts will obtain Dilaudid for her now. Patient is on aspirin 325 mg twice a day for anticoagulation. Wilson catheter is in place expect this to be removed today. Patient verbalizes that she plans to go home but one will be determined once patient is worked with physical therapy. Blood sugars have been running between 85 and 150. Repeat hemoglobin is at 9.3, platelet count 212, WBC 5.1. She has been afebrile, heart rate 87, blood pressure 142/72 and pulse ox 94% on room air. Lisinopril will be resumed. 08/18: Patient has been afebrile, heart rate 80, blood pressure 165/81, pulse ox 96% on room air. Pain is better controlled today. Sugar last evening was 61 and patient encouraged to take at bedtime snack. Therapies have evaluated patient and recommended subacute rehab however patient is declining rehab and plans to return home with her caregivers and family. Her son lives next door and she does have family support. Discharge plan will be for tomorrow. 08/19: Patient has been afebrile, heart rate 77, blood pressure 160/80, pulse ox 100% on room air. Blood sugars are running between 100 this morning up to 280 before bedtime. Cardiology has signed off. Patient is on aspirin 325 mg twice daily for DVT prophylaxis. She was planning to return home but on further discussion, she decided to go to [facility]. Social work has been updated and anticipate that she'll be ready for discharge today. ASSESSMENT AND PLAN: 1. Right intertrochanteric hip fractur status post right hip medullary nail fixation. 2. Diabetes mellitus type 1 with diabetic polyneuropathy. 3. Hypertension and hypertensive cardio vascular disease. 4. Hyperlipidemia. 5. CAD post-PCI in 2010. 6. History of PAD with a recent callus of the right foot, right foot diabetic foot ulcer following [facility] the [facility]. Appears to be stable. 7. History of narcolepsy never treated. DISCHARGE PLAN Dori. Impression and plan of care have been directed as dictated by the signing physician. Faith Camarillo nurse practitioner acting as scribe for signing physician. Patient Condition at Discharge: Good Plan - Discharge Summary Discharge Rx Participant: No New Discharge Prescriptions: New Aspirin 325 mg PO BID tab Sennosides-Docusate Sodium [Senokot-S] 2 each PO HS tab HYDROcodone/APAP 7.5-325MG [Epsom 7.5-325] 1 each PO Q4H PRN #18 tab PRN Reason: Pain Continue Cholecalciferol [Vitamin D3 (25 Mcg = 1000 Iu)] 2,000 mcg PO DAILY hydrALAZINE HCL [Apresoline] 50 mg PO TID Carvedilol [Coreg] 12.5 mg PO BID Insulin Lispro [humaLOG Kwikpen] 6 unit SQ AC-TID Atorvastatin Calcium [Lipitor] 40 mg PO DAILY lisinopriL [Zestril] 5 mg PO DAILY Cyanocobalamin (Vitamin B-12) [Vitamin B-12] 1,000 mcg PO DAILY Insulin Glargine,Hum.rec.anlog [Toujeo Solostar] 15 units SQ HS Famotidine 10 mg PO DAILY PRN PRN Reason: gerds Insulin Lispro [humaLOG Kwikpen] See Protocol SQ AC-TID Discontinued Aspirin 81 mg PO DAILY chew Discharge Medication List Cholecalciferol [Vitamin D3 (25 Mcg = 1000 Iu)] 2,000 mcg PO DAILY 01/04/20 [History] Carvedilol [Coreg] 12.5 mg PO BID 04/15/20 [History] hydrALAZINE HCL [Apresoline] 50 mg PO TID 04/15/20 [History] Atorvastatin Calcium [Lipitor] 40 mg PO DAILY 08/15/20 [History] Cyanocobalamin (Vitamin B-12) [Vitamin B-12] 1,000 mcg PO DAILY 08/15/20 [History] Famotidine 10 mg PO DAILY PRN 08/15/20 [History] Insulin Glargine,Hum.rec.anlog [Toujeo Solostar] 15 units SQ HS 08/15/20 [History] lisinopriL [Zestril] 5 mg PO DAILY 08/15/20 [History] Insulin Lispro [humaLOG Kwikpen] 6 unit SQ AC-TID 08/16/20 [History] Insulin Lispro [humaLOG Kwikpen] See Protocol SQ AC-TID 08/16/20 [History] Aspirin 325 mg PO BID tab 08/19/20 [Rx] HYDROcodone/APAP 7.5-325MG [Epsom 7.5-325] 1 each PO Q4H PRN #18 tab 08/19/20 [Rx] Sennosides-Docusate Sodium [Senokot-S] 2 each PO HS tab 08/19/20 [Rx] Follow up Appointment(s)/Referral(s): Stefano Hernandez MD [STAFF PHYSICIAN] - 2 Weeks Mary Heath MD [Primary Care Provider] - 1 Week Indra Tran PAC [PHYSICIAN PUTTIER] - 2 Weeks (Patient may follow-up with Indra Tran PA-C or Dr. Richard Kilgore at [facility] in 2-3 weeks following discharge. ) Dori Parra, [NON-STAFF] - As Needed [facility], [REFERRING] - As Needed Activity/Diet/Wound Care/Special Instructions: 1. Nonweightbearing on the right lower extremity 2. Keep dressing over the right hip clean, dry, and intact 3. Patient may shower with dressing intact over the right hip 4. If dressing remains dry over the next 72 hours, patient may remove dressing and shower without a dressing at that time 5. Patient may apply ice over the right hip for comfort support as needed 6. Patient is encouraged using a walking aid to aid in ambulation as needed 7. Take medications as prescribed 8. Take aspirin 326 mg oral twice daily for 30 days, then resume aspirin 81 mg daily. Discharge Disposition: TRANSFER TO SNF/ECF
[2020-08-19 16:43] LABS: Glucose,Whole Blood 273 mg/dL (75-99)
[2020-08-19 21:34] LABS: Glucose,Whole Blood 239 mg/dL (75-99)
[2020-08-19] MEDS: INSULIN DETEMIR (LEVEMIR) 100 UNIT/ML SYR SQ SCH (22:03)
[2020-08-19] MEDS: HYDROmorphone 1 MG/ML 1 ML SYRINGE IVP PRN (22:12)
[2020-08-20] MEDS: HYDROcodone/APAP 7.5-325MG 1 EACH TAB PO PRN (03:57)
[2020-08-20 07:06] LABS: Glucose,Whole Blood 112 mg/dL (75-99)
[2020-08-20] MEDS: INSULIN ASPART (NovoLOG) 100 UNIT/ML VIAL SQ SCH ×7 (07:27→20:33)
[2020-08-20] MEDS: hydrALAZINE HCL 50 MG TAB PO SCH ×3 (08:16→20:35)
[2020-08-20] MEDS: ATORVASTATIN 40 MG TAB PO SCH (08:16)
[2020-08-20] MEDS: CHOLECALCIFEROL 25 MCG (1000 IU) TABLET PO SCH (08:16)
[2020-08-20] MEDS: ASPIRIN 325 MG TAB PO SCH ×2 (08:16→20:36)
[2020-08-20] MEDS: CYANOCOBALAMIN 500 MCG TAB PO SCH (08:16)
[2020-08-20] MEDS: PANTOPRAZOLE 40 MG TABLET PO SCH (08:16)
[2020-08-20] MEDS: SENNOSIDES-DOCUSATE SODIUM 1 EACH TAB PO SCH ×2 (08:16→20:36)
[2020-08-20] MEDS: carvediloL 12.5 MG TAB PO SCH ×2 (08:16→15:58)
[2020-08-20] MEDS: lisinopriL 5 MG TAB PO SCH (08:16)
[2020-08-20] MEDS: ENOXAPARIN 30 MG/0.3 ML SYRINGE SQ SCH ×2 (08:16→20:35)
[2020-08-20 11:24] LABS: Glucose,Whole Blood 139 mg/dL (75-99)
--- NOTE | 2020-08-20 12:09 | P.DS ---
Providers Date of admission: 08/15/20 12:26 Attending physician: Mary Heath Consults: 08/15/20 14:34 Consult Physician Stat Consulting Provider: Stefano Hernandez Consult Reason/Comments: cardiac clearance for hip surgery Do you want consulting provider notified?: Yes 08/15/20 14:42 Consult Physician Stat Consulting Provider: Kole Kilgore Consult Reason/Comments: fractured right hip Do you want consulting provider notified?: Yes 08/17/20 08:20 Consult Physician Routine Consulting Provider: Garcia Rodrigez Consult Reason/Comments: wound care Do you want consulting provider notified?: Yes Primary care physician: Mary Heath Hospital Course: Patient is admitted for intertrochanteric fracture and patient underwent right hip intramedullary nailing and fixation. Patient is supposed to be discharged yesterday as she didn't have alteration from the insurance patient ended up staying. Patient is clinically doing well no complaints at this time. PHYSICAL EXAMINATION: GENERAL: The patient is alert and oriented x3, not in any acute distress. Well developed, well nourished. HEENT: Pupils are round and equally reacting to light. EOMI. No scleral icterus. No conjunctival pallor. Normocephalic, atraumatic. No pharyngeal erythema. No thyromegaly. CARDIOVASCULAR: S1 and S2 present. No murmurs, rubs, or gallops. PULMONARY: Chest is clear to auscultation, no wheezing or crackles. ABDOMEN: Soft, nontender, nondistended, normoactive bowel sounds. No palpable organomegaly. MUSCULOSKELETAL: No joint swelling or deformity. EXTREMITIES: No cyanosis, clubbing, or pedal edema. NEUROLOGICAL: Gross neurological examination did not reveal any focal deficits. SKIN: No rashes. For rest of the medical problems and hospitalization course please refer to the discharge summary that was done yesterday by Dr. Heath. Patient Condition at Discharge: Good Plan - Discharge Summary Discharge Rx Participant: No New Discharge Prescriptions: New Aspirin 325 mg PO BID tab Sennosides-Docusate Sodium [Senokot-S] 2 each PO HS tab HYDROcodone/APAP 7.5-325MG [[place] 7.5-325] 1 each PO Q4H PRN #18 tab PRN Reason: Pain Continue Cholecalciferol [Vitamin D3 (25 Mcg = 1000 Iu)] 2,000 mcg PO DAILY hydrALAZINE HCL [Apresoline] 50 mg PO TID Carvedilol [Coreg] 12.5 mg PO BID Insulin Lispro [humaLOG Kwikpen] 6 unit SQ AC-TID Atorvastatin Calcium [Lipitor] 40 mg PO DAILY lisinopriL [Zestril] 5 mg PO DAILY Cyanocobalamin (Vitamin B-12) [Vitamin B-12] 1,000 mcg PO DAILY Insulin Glargine,Hum.rec.anlog [Jaxson Read] 15 units SQ HS Famotidine 10 mg PO DAILY PRN PRN Reason: gerds Insulin Lispro [humaLOG Kwikpen] See Protocol SQ AC-TID Discontinued Aspirin 81 mg PO DAILY chew Discharge Medication List Cholecalciferol [Vitamin D3 (25 Mcg = 1000 Iu)] 2,000 mcg PO DAILY 01/04/20 [ History] Carvedilol [Coreg] 12.5 mg PO BID 04/15/20 [History] hydrALAZINE HCL [Apresoline] 50 mg PO TID 04/15/20 [History] Atorvastatin Calcium [Lipitor] 40 mg PO DAILY 08/15/20 [History] Cyanocobalamin (Vitamin B-12) [Vitamin B-12] 1,000 mcg PO DAILY 08/15/20 [History] Famotidine 10 mg PO DAILY PRN 08/15/20 [History] Insulin Glargine,Hum.rec.anlog [Toujuan ao Solostar] 15 units SQ HS 08/15/20 [Histor y] lisinopriL [Zestril] 5 mg PO DAILY 08/15/20 [History] Insulin Lispro [humaLOG Kwikpen] 6 unit SQ AC-TID 08/16/20 [History] Insulin Lispro [humaLOG Kwikpen] See Protocol SQ AC-TID 08/16/20 [History] Aspirin 325 mg PO BID tab 08/19/20 [Rx] HYDROcodone/APAP 7.5-325MG [[place] 7.5-325] 1 each PO Q4H PRN #18 tab 08/19/20 [Rx] Sennosides-Docusate Sodium [Senokot-S] 2 each PO HS tab 08/19/20 [Rx] Follow up Appointment(s)/Referral(s): Stefano Hernandez MD [STAFF PHYSICIAN] - 2 Weeks (office closed at this time patient to call Saturday and schedule appt ) Mary Heath MD [Primary Care Provider] - 1 Week (office closed at this time patient to call Saturday and schedule appt ) Indra Tran PAC [PHYSICIAN TREE KILLER] - 2 Weeks (Patient may follow-up with Indra Tran PA-C or Dr. Richard Kilgore at [facility] in 2-3 weeks following discharge. ) Dori Parra, [NON-STAFF] - As Needed [facility], [REFERRING] - As Needed Patient Instructions/Handouts: Hip Fracture (GEN) Activity/Diet/Wound Care/Special Instructions: 1. Nonweightbearing on the right lower extremity 2. Keep dressing over the right hip clean, dry, and intact 3. Patient may shower with dressing intact over the right hip 4. If dressing remains dry over the next 72 hours, patient may remove dressing and shower without a dressing at that time 5. Patient may apply ice over the right hip for comfort support as needed 6. Patient is encouraged using a walking aid to aid in ambulation as needed 7. Take medications as prescribed 8. Take aspirin 326 mg oral twice daily for 30 days, then resume aspirin 81 mg daily. Discharge Disposition: TRANSFER TO SNF/ECF
[2020-08-20 16:48] LABS: Glucose,Whole Blood 238 mg/dL (75-99)
[2020-08-20 20:21] LABS: Glucose,Whole Blood 204 mg/dL (75-99)
[2020-08-20] MEDS: INSULIN DETEMIR (LEVEMIR) 100 UNIT/ML SYR SQ SCH (20:35)
[2020-08-20 23:02] LABS: Glucose,Whole Blood 173 mg/dL (75-99)
[2020-08-21] MEDS: KETOTIFEN 0.025% OPHTH DROPS 5 ML BTL RIGHT EYE PRN (01:05)
[2020-08-21 06:57] LABS: Glucose,Whole Blood 67 mg/dL (75-99)
[2020-08-21 06:57] LABS: Glucose,Whole Blood 56 mg/dL (75-99)
[2020-08-21] MEDS: INSULIN ASPART (NovoLOG) 100 UNIT/ML VIAL SQ SCH ×7 (07:03→20:53)
[2020-08-21 07:06] LABS: Glucose,Whole Blood 88 mg/dL (75-99)
[2020-08-21] MEDS: ATORVASTATIN 40 MG TAB PO SCH (08:45)
[2020-08-21] MEDS: CYANOCOBALAMIN 500 MCG TAB PO SCH (08:45)
[2020-08-21] MEDS: ENOXAPARIN 30 MG/0.3 ML SYRINGE SQ SCH ×2 (08:45→20:52)
[2020-08-21] MEDS: carvediloL 12.5 MG TAB PO SCH ×2 (08:45→15:40)
[2020-08-21] MEDS: PANTOPRAZOLE 40 MG TABLET PO SCH (08:45)
[2020-08-21] MEDS: ASPIRIN 325 MG TAB PO SCH ×2 (08:45→20:52)
[2020-08-21] MEDS: CHOLECALCIFEROL 25 MCG (1000 IU) TABLET PO SCH (08:46)
[2020-08-21] MEDS: SENNOSIDES-DOCUSATE SODIUM 1 EACH TAB PO SCH ×2 (08:46→20:52)
[2020-08-21] MEDS: hydrALAZINE HCL 50 MG TAB PO SCH ×3 (08:46→20:52)
[2020-08-21] MEDS: lisinopriL 10 MG TAB PO SCH (08:48)
--- NOTE | 2020-08-21 09:32 | P.PN ---
Subjective Patient is admitted for intertrochanteric fracture and patient underwent right hip intramedullary nailing and fixation. Patient is supposed to be discharged yesterday as she didn't have alteration from the insurance patient ended up staying. Patient is clinically doing well no complaints at this time. 08/21/2020 Patient blood pressure is elevated today patient the is on lisinopril dose of which will be increased. Patient will benefit from increase the lisinopril dose considering that she is diabetic. Probably eventually hydralazine can be discontinued and increase the dose of lisinopril instead. Constitutional: Denied any fatigue denied any fever. Cardio vascular: denied any chest pain, palpitations Gastrointestinal denied any nausea vomiting Pulmonary: Denied any shortness of breath cough Neurologic denied any new focal deficits All inpatient medications were reviewed and appropriate changes in these medications as dictated in the interval history and assessment and plan. PHYSICAL EXAMINATION: GENERAL: The patient is alert and oriented x3, not in any acute distress. Well developed, well nourished. HEENT: Pupils are round and equally reacting to light. EOMI. No scleral icterus. No conjunctival pallor. Normocephalic, atraumatic. No pharyngeal erythema. No thyromegaly. CARDIOVASCULAR: S1 and S2 present. No murmurs, rubs, or gallops. PULMONARY: Chest is clear to auscultation, no wheezing or crackles. ABDOMEN: Soft, nontender, nondistended, normoactive bowel sounds. No palpable organomegaly. MUSCULOSKELETAL: No joint swelling or deformity. EXTREMITIES: No cyanosis, clubbing, or pedal edema. NEUROLOGICAL: Gross neurological examination did not reveal any focal deficits. SKIN: No rashes. ASSESSMENT AND PLAN: 1. Right intertrochanteric hip fractur status post right hip medullary nail fixation. Patient is on the aspirin 325 twice a day for DVT prophylaxis 2. Diabetes mellitus type 1 with diabetic polyneuropathy. Well controlled blood sugars 3. Hypertension and hypertensive cardio vascular disease. Dose of SUSAN inhibitor is being increased patient is on multiple medications. 4. Hyperlipidemia. 5. CAD post-PCI in 2010. 6. History of PAD with a recent callus of the right foot, right foot diabetic foot ulcer following [facility] the [facility]. Appears to be stable. Objective - Vital Signs Vital signs: Vital Signs Temp 98.7 F 08/21/20 07:36 Pulse 84 08/21/20 07:36 Resp 16 08/21/20 07:36 BP 171/72 08/21/20 07:36 Pulse Ox 96 08/21/20 07:36 Intake & Output 08/20/20 08/21/20 08/21/20 18:59 06:59 18:59 Other: # Voids 1 1 - Labs CBC & Chem 7: 08/19/20 08:34 08/19/20 08:34 Labs: Abnormal Lab Results - Last 24 Hours (Table) 08/20/20 08/20/20 08/20/20 Range/Units 11:18 16:47 20:20 POC Glucose (mg/dL) 139 H 238 H 204 H (75-99) mg/dL 08/20/20 08/21/20 08/21/20 Range/Units 23:00 06:38 06:53 POC Glucose (mg/dL) 173 H 56 L 67 L (75-99) mg/dL
[2020-08-21 11:39] LABS: Glucose,Whole Blood 114 mg/dL (75-99)
[2020-08-21 17:08] LABS: Glucose,Whole Blood 313 mg/dL (75-99)
[2020-08-21 20:34] LABS: Glucose,Whole Blood 253 mg/dL (75-99)
[2020-08-21] MEDS: INSULIN DETEMIR (LEVEMIR) 100 UNIT/ML SYR SQ SCH (20:53)
[2020-08-21] MEDS: HYDROcodone/APAP 7.5-325MG 1 EACH TAB PO PRN (21:08)
[2020-08-22 07:01] LABS: Glucose,Whole Blood 133 mg/dL (75-99)
[2020-08-22] MEDS: hydrALAZINE HCL 50 MG TAB PO SCH ×3 (07:44→20:35)
[2020-08-22] MEDS: ENOXAPARIN 30 MG/0.3 ML SYRINGE SQ SCH ×2 (07:44→20:36)
[2020-08-22] MEDS: ASPIRIN 325 MG TAB PO SCH ×2 (07:45→20:35)
[2020-08-22] MEDS: carvediloL 12.5 MG TAB PO SCH ×2 (07:45→17:21)
[2020-08-22] MEDS: lisinopriL 10 MG TAB PO SCH (07:45)
[2020-08-22] MEDS: CYANOCOBALAMIN 500 MCG TAB PO SCH (07:45)
[2020-08-22] MEDS: SENNOSIDES-DOCUSATE SODIUM 1 EACH TAB PO SCH ×2 (07:45→20:35)
[2020-08-22] MEDS: CHOLECALCIFEROL 25 MCG (1000 IU) TABLET PO SCH (07:45)
[2020-08-22] MEDS: HYDROcodone/APAP 7.5-325MG 1 EACH TAB PO PRN ×3 (07:45→17:21)
[2020-08-22] MEDS: ATORVASTATIN 40 MG TAB PO SCH (07:45)
[2020-08-22] MEDS: PANTOPRAZOLE 40 MG TABLET PO SCH (07:45)
[2020-08-22] MEDS: INSULIN ASPART (NovoLOG) 100 UNIT/ML VIAL SQ SCH ×7 (07:48→20:35)
--- NOTE | 2020-08-22 08:22 | P.PN ---
Progress Note - Text Progress Note Date: 08/22/20 Orthopedics: History of present illness: Patient is a very pleasant 70-year-old female who is seen and examined at the bedside for further evaluation of her right hip. She is status post right hip intramedullary nail fixation for right intertrochanteric hip fracture performed on 08/16/2020. She was clear for discharge on Saturday and over the weekend but have not received approval for transfer to a rehabilitation facility today but she states she is supposed be scheduled to be transferred to [facility] rehabilitation [facility] today. She states she has continued to improve over the weekend. Her right hip pain is better controlled. She was able to work with physical therapy to increase her mobility in the room. She's been able to stand on her left lower extremity. She is eating and voiding without difficulty. She is happy with her care and improvement since her pins to the hospital. She continues to be seen and by medicine for her other medical diagnoses including coronary artery disease, insulin-dependent diabetes mellitus, history of DVT, hyperlipidemia, hypertension, and vascular disorder. She is currently taking aspirin 325 mg twice a day for anticoagulation postoperatively. Her Wilson catheter has been discontinued. Physical Exam Intramedullary Rodding for Intertrochanteric Fracture: Status post surgical day number 6 Patient is examined lying in bed Patient is awake and alert, and oriented 3 Vital signs stable Good chest excursion with deep inspiration and expiration No signs or symptoms of DVT; no calf pain Lower extremity cuffs not currently in place bilaterally Dressing of the right hip is dry and intact with 1 tiny spot of dried blood; no erythema, purulence, or signs of infection No pain with palpation over the surgical sites Full range of motion of ankles bilaterally Dorsiflexion, plantarflexion, and extensor hallucis longus positive sustained bilaterally Neurovascularly intact bilateral lower extremities Capillary refill less than 2 seconds bilateral lower extremities Intact over the right foot Assessment: Status post right hip intramedullary nail fixation for intertrochanteric hip fracture performed on 08/16/2020 Status post fall Right hip pain Inability ambulate due to pain Healing wound of the right foot Insulin-dependent diabetes mellitus History of coronary artery disease History DVT Hyperlipidemia Hypertension Vascular disorder Plan: 1. Patient to remain nonweightbearing on the right lower extremity; patient may work with physical therapy to increase mobility and ambulation 2. Keep dressing over the right hip clean, dry, and intact 3. Continue pain control with oral [place] 7.5 mg/325 mg as needed for pain control 4. Continue with anticoagulation therapy with aspirin 325 mg twice a day 5. Medicine to continue following the patient for their other medical diagnosis including coronary artery disease, insulin-dependent diabetes mellitus, history of DVT, hyperlipidemia, hypertension, and vascular disorder 6. Patient has been cleared for discharge by orthopedics and medicine. The patient is currently waiting for approval for discharge to [facility]. She is most likely getting approved and transferred today. 7. Patient will continue to be seen and examined by Dr. Rodrigez for wound care for her right foot and she'll plan to continue with care following discharge from hospital 8. Patient can follow-up with Indra Tran PA-C or Dr. Richard Kilgore at [facility] in 2-3 weeks following discharg
[2020-08-22 11:36] LABS: Glucose,Whole Blood 50 mg/dL (75-99)
[2020-08-22 11:48] LABS: Glucose,Whole Blood 70 mg/dL (75-99)
--- NOTE | 2020-08-22 13:23 | P.DS ---
Providers Date of admission: 08/15/20 12:26 Expected date of discharge: 08/23/20 Attending physician: Mary Heath Consults: 08/15/20 14:34 Consult Physician Stat Consulting Provider: Stefano Hernandez Consult Reason/Comments: cardiac clearance for hip surgery Do you want consulting provider notified?: Yes 08/15/20 14:42 Consult Physician Stat Consulting Provider: Kole Kilgore Consult Reason/Comments: fractured right hip Do you want consulting provider notified?: Yes 08/17/20 08:20 Consult Physician Routine Consulting Provider: Garcia Rodrigez Consult Reason/Comments: wound care Do you want consulting provider notified?: Yes Primary care physician: Mary Heath Hospital Course: HISTORY OF PRESENT ILLNESS: This is a 70 -year-old -[place] female with a previous medical history significant for hypertension and hypertensive cardiovascular disease, hyperlipidemia, diabetes mellitus type 1 with diabetic polyneuropathy, PAD, CAD post PCI in 2010 ,history of narcolepsy, history of osteoarthritis, patient was recently hospitalized at [facility] about few days ago after she was admitted for diabetic ketoacidosis with blood glucose level of 668, she was treated with insulin drip as well as IV fluid resuscitation after she was found to have an acute kidney injury and she was discharged home on Lantus 16 units at bedtime along with the Humalog 6 units with each meal plus the sliding scale insulin apparently the patient fell at home while she was going down the basement when she missed her steps and landed on the right side of her body developed to have a significant pain in the right hip she could not move around, she eventually managed to get some help, patient ended up getting transferred to [facility] where she was evaluated by computed tomography scan of the hip and an x-ray that showed right intertrochanteric hip fracture she was admitted under my service and was supposed to be seen in consultation by Dr. Bear however for some reason the patient declined to be seen by an orthopedic surgeon outside of [place] and she elected to be transferred to [facility] for evaluation by orthopedic surgery locally patient was transferred as a direct admission from the emergency department at [facility] to [facility] consult and orthopedic on-call. 08/16: Patient has been seen by orthopedics with recommendations for right hip medullary nail fixation for intertrochanteric hip fracture which is scheduled for surgery today at 5 PM. Cardiology consult is in place for clearance for surgery. Blood sugar this morning was 95 prior to that she was running 235-276. Patient has been afebrile, heart rate 84, blood pressure 103/63, pulse ox 98% on room air. Parameters placed on hydralazine to hold if blood pressure less than 110. 08/17: Patient complains of having a lot of pain #8 out of 10. She received [place], patient starts will obtain Dilaudid for her now. Patient is on aspirin 325 mg twice a day for anticoagulation. Wilson catheter is in place expect this to be removed today. Patient verbalizes that she plans to go home but one will be determined once patient is worked with physical therapy. Blood sugars have been running between 85 and 150. Repeat hemoglobin is at 9.3, platelet count 212, WBC 5.1. She has been afebrile, heart rate 87, blood pressure 142/72 and pulse ox 94% on room air. Lisinopril will be resumed. 08/18: Patient has been afebrile, heart rate 80, blood pressure 165/81, pulse ox 96% on room air. Pain is better controlled today. Sugar last evening was 61 and patient encouraged to take at bedtime snack. Therapies have evaluated patient and recommended subacute rehab however patient is declining rehab and plans to return home with her caregivers and family. Her son lives next door and she does have family support. Discharge plan will be for tomorrow. 08/19: Patient has been afebrile, heart rate 77, blood pressure 160/80, pulse ox 100% on room air. Blood sugars are running between 100 this morning up to 280 before bedtime. Cardiology has signed off. Patient is on aspirin 325 mg twice daily for DVT prophylaxis. She was planning to return home but on further discussion, she decided to go to [facility]. Social work has been updated and anticipate that she'll be ready for discharge today. 08/22: Patient's discharge to [facility] was delayed waiting for insurance authorization. Her pain to the right hip is improved and manageable. Patient has a good appetite. Blood sugars have been low periodically, today at 50 with recheck at 70. Patient has been afebrile, heart rate 76, blood pressure 184/89, pulse ox 97% on room air. Patient will be discharged to [facility] once arrangements are completed. 08/23: Patient is an afebrile, heart rate 74, blood pressure 121/61, pulse ox 99% on room air. Patient again had hypoglycemia this morning with blood sugar of 41 with repeat at 59 and 84. Patient states that she is taking a at times snack. Patient was seen by Dr. Rodrigez during her hospitalization and follow-up with him in 2 weeks in the wound Center. Patient states her hip is sore but pain is controlled. She denies any shortness of breath. No nausea or vomiting. Patient will be discharged to [facility] today in stable condition. ASSESSMENT AND PLAN: 1. Right intertrochanteric hip fractur status post right hip medullary nail fixation. 2. Diabetes mellitus type 1 with diabetic polyneuropathy. 3. Hypertension and hypertensive cardio vascular disease. 4. Hyperlipidemia. 5. CAD post-PCI in 2010. 6. History of PAD with a recent callus of the right foot, right foot diabetic foot ulcer following at the wound healing Center. 7. History of narcolepsy never treated. DISCHARGE PLAN [facility]. Impression and plan of care have been directed as dictated by the signing physician. Faith Camarillo nurse practitioner acting as scribe for signing physician. Patient Condition at Discharge: Good Plan - Discharge Summary Discharge Rx Participant: No New Discharge Prescriptions: New Aspirin 325 mg PO BID tab Ketotifen 0.025% Ophth Soln [Zaditor] 1 drops RIGHT EYE BID PRN ml PRN Reason: Eye Irritation Sennosides-Docusate Sodium [Senokot-S] 2 each PO HS tab HYDROcodone/APAP 7.5-325MG [[place] 7.5-325] 1 each PO Q4H PRN #18 tab PRN Reason: Pain Continue Cholecalciferol [Vitamin D3 (25 Mcg = 1000 Iu)] 2,000 mcg PO DAILY hydrALAZINE HCL [Apresoline] 50 mg PO TID Carvedilol [Coreg] 12.5 mg PO BID Insulin Lispro [humaLOG Kwikpen] 6 unit SQ AC-TID Atorvastatin Calcium [Lipitor] 40 mg PO DAILY Cyanocobalamin (Vitamin B-12) [Vitamin B-12] 1,000 mcg PO DAILY Insulin Glargine,Hum.rec.anlog [Toujeo Solostar] 15 units SQ HS Famotidine 10 mg PO DAILY PRN PRN Reason: gerds Insulin Lispro [humaLOG Kwikpen] See Protocol SQ AC-TID Changed lisinopriL [Zestril] 10 mg PO DAILY #0 Discontinued Aspirin 81 mg PO DAILY chew Discharge Medication List Cholecalciferol [Vitamin D3 (25 Mcg = 1000 Iu)] 2,000 mcg PO DAILY 01/04/20 [History] Carvedilol [Coreg] 12.5 mg PO BID 04/15/20 [History] hydrALAZINE HCL [Apresoline] 50 mg PO TID 04/15/20 [History] Atorvastatin Calcium [Lipitor] 40 mg PO DAILY 08/15/20 [History] Cyanocobalamin (Vitamin B-12) [Vitamin B-12] 1,000 mcg PO DAILY 08/15/20 [History] Famotidine 10 mg PO DAILY PRN 08/15/20 [History] Insulin Glargine,Hum.rec.anlog [Toujeo Solostar] 15 units SQ HS 08/15/20 [History] Insulin Lispro [humaLOG Kwikpen] 6 unit SQ AC-TID 08/16/20 [History] Insulin Lispro [humaLOG Kwikpen] See Protocol SQ AC-TID 08/16/20 [History] Aspirin 325 mg PO BID tab 08/19/20 [Rx] HYDROcodone/APAP 7.5-325MG [[place] 7.5-325] 1 each PO Q4H PRN #18 tab 08/19/20 [Rx] Sennosides-Docusate Sodium [Senokot-S] 2 each PO HS tab 08/19/20 [Rx] Ketotifen 0.025% Ophth Soln [Zaditor] 1 drops RIGHT EYE BID PRN ml 08/22/20 [Rx] lisinopriL [Zestril] 10 mg PO DAILY #0 08/22/20 [Rx] Follow up Appointment(s)/Referral(s): Stefano Hernandez MD [STAFF PHYSICIAN] - 2 Weeks (office closed at this time patient to call Saturday and schedule appt ) Mary Heath MD [Primary Care Provider] - 1 Week (office closed at this time patient to call Saturday and schedule appt ) Kiba,Indra, PAC [PHYSICIAN ADJUNCT INSTRUCTOR CHEMISTRY] - 09/05/20 1:00 pm ( ) Dori Parra, [NON-STAFF] - As Needed [facility], [REFERRING] - As Needed Garcia Rodrigez MD [STAFF PHYSICIAN] - 2 Weeks (at Wound Center) Patient Instructions/Handouts: Hip Fracture (GEN) Activity/Diet/Wound Care/Special Instructions: 1. Nonweightbearing on the right lower extremity 2. Keep dressing over the right hip clean, dry, and intact 3. Patient may shower with dressing intact over the right hip 4. If dressing remains dry over the next 72 hours, patient may remove dressing and shower without a dressing at that time 5. Patient may apply ice over the right hip for comfort support as needed 6. Patient is encouraged using a walking aid to aid in ambulation as needed 7. Take medications as prescribed 8. Take aspirin 326 mg oral twice daily for 30 days, then resume aspirin 81 mg daily. Discharge Disposition: TRANSFER TO SNF/ECF
--- NOTE | 2020-08-22 13:25 | P.PN ---
Subjective Progress Note Date: 08/22/20 HISTORY OF PRESENT ILLNESS: This is a 70 -year-old -[place] female with a previous medical history significant for hypertension and hypertensive cardiovascular disease, hyperlipidemia, diabetes mellitus type 1 with diabetic polyneuropathy, PAD, CAD post PCI in 2010 ,history of narcolepsy, history of osteoarthritis, patient was recently hospitalized at [facility] about few days ago after she was admitted for diabetic ketoacidosis with blood glucose level of 668, she was treated with insulin drip as well as IV fluid resuscitation after she was found to have an acute kidney injury and she was discharged home on Lantus 16 units at bedtime along with the Humalog 6 units with each meal plus the sliding scale insulin apparently the patient fell at home while she was going down the basement when she missed her steps and landed on the right side of her body developed to have a significant pain in the right hip she could not move around, she eventually managed to get some help, patient ended up getting transferred to [facility] where she was evaluated by computed tomography scan of the hip and an x-ray that showed right intertrochanteric hip fracture she was a dmitted under my service and was supposed to be seen in consultation by Dr. Bear however for some reason the patient declined to be seen by an orthopedic surgeon outside of [place] and she elected to be transferred to [facility] for evaluation by orthopedic surgery locally patient was transferred as a direct admission from the emergency department at [facility] to [facility] consult and orthopedic on-call. 08/16: Patient has been seen by orthopedics with recommendations for right hip medullary nail fixation for intertrochanteric hip fracture which is scheduled for surgery today at 5 PM. Cardiology consult is in place for clearance for surgery. Blood sugar this morning was 95 prior to that she was running 235-276. Patient has been afebrile, heart rate 84, blood pressure 103/63, pulse ox 98% on room air. Parameters placed on hydralazine to hold if blood pressure less than 110. 08/17: Patient complains of having a lot of pain #8 out of 10. She received [place], patient starts will obtain Dilaudid for her now. Patient is on aspirin 325 mg twice a day for anticoagulation. Wilson catheter is in place expect this to be removed today. Patient verbalizes that she plans to go home but one will be determined once patient is worked with physical therapy. Blood sugars have been running between 85 and 150. Repeat hemoglobin is at 9.3, platelet count 212, WBC 5.1. She has been afebrile, heart rate 87, blood pressure 142/72 and pulse ox 94% on room air. Lisinopril will be resumed. 08/18: Patient has been afebrile, heart rate 80, blood pressure 165/81, pulse ox 96% on room air. Pain is better controlled today. Sugar last evening was 61 and patient encouraged to take at bedtime snack. Therapies have evaluated patient and recommended subacute rehab however patient is declining rehab and plans to return home with her caregivers and family. Her son lives next door and she does have family support. Discharge plan will be for tomorrow. 08/19: Patient has been afebrile, heart rate 77, blood pressure 160/80, pulse ox 100% on room air. Blood sugars are running between 100 this morning up to 280 before bedtime. Cardiology has signed off. Patient is on aspirin 325 mg twice daily for DVT prophylaxis. She was planning to return home but on further discussion, she decided to go to [facility]. Social work has been updated and anticipate that she'll be ready for discharge today. 08/22: Patient's discharge to [facility] was delayed waiting for insurance authorization. Her pain to the right hip is improved and manageable. Patient has a good appetite. Blood sugars have been low periodically, today at 50 with recheck at 70. Patient has been afebrile, heart rate 76, blood pressure 184/89, pulse ox 97% on room air. Patient will be discharged to [facility] once arrangements are completed. REVIEW OF SYSTEMS: Constitutional: No documented fever, no chills, no night sweats. No weight change. No weakness, fatigue or lethargy. No daytime sleepiness. HEENT: No headache. No blurred vision or double vision, no loss of vision. No loss of Hearing, no ringing in the ears, no dizziness. No nasal drainage or congestion. No epistaxis. No sore throat. Lungs: No shortness of breath, no cough, no sputum production. No wheezing. Reports dyspnea with activity. Cardiovascular: No chest pain, no lower extremity edema. No palpitations. No paroxysmal nocturnal dyspnea. No orthopnea. No lightheadedness or dizziness. No syncopal episodes. Abdominal: Reports no abdominal pain. No nausea, vomiting. No diarrhea. No constipation. No bloody or tarry stools reports loss of appetite. Genitourinary: No dysuria, increased frequency, urgency. No urinary retention. Musculoskeletal: No myalgias. No muscle weakness, positive for gait dy sfunction, pain in the right hip, controlled. Integumentary: No wounds, no rash or pruritus. No unusual bruising. No change in hair or nails,right foot callus Neurologic: No aphasia. No facial droop. No change in mentation. No head injury. No headache. No paralysis. No paresthesia. Psychiatric: depression. anxiety no mood swings. Endocrine: Fluctuation of blood glucose level. PHYSICAL EXAMINATION: General: 70-year-old -[place] female laying down in bed in no acute distress HEENT: Head is atraumatic, normocephalic, pupils were equal round reactive to light and accommodation, sclera nonicteric, mucous membranes of the mouth are somewhat dry. Neck: Supple, no JVP, normal carotid upstroke bilaterally, no lymphadenopathy. Chest: Decreased breath sounds at the bases, few rhonchi, no extremity wheezes, no chest wall tenderness, no intercostal retractions. Heart: First heart sound is normal, second heart sounds normal there is systolic ejection murmur 2/6 located in the left sternal border. Abdomen: Soft, nontender, nondistended, positive bowel sounds. Extremities: There is no edema no calf tenderness DP +1 bilaterally, wound to the right hip area, dressing in place. Neurologic examination: Patient is awake alert and oriented x3, cranial nerves II-12 appear grossly intact, muscle power was not done due to pain in the right hip. ASSESSMENT AND PLAN: 1. Right intertrochanteric hip fractur status post right hip medullary nail fixation. Continue aspirin 325 mg twice daily for DVT prophylaxis, continue [place] 7.5 one every 4 hours and Dilaudid as needed, continue Zofran 4 mg IV push every 6 hours as needed, monitor the patient very closely. 2. Diabetes mellitus type 1 with diabetic polyneuropathy. Continue patient on Lantus 16 units at bedtime along with Humalog 6 units before each meal along with a sliding scale insulin. Monitor the patient blood glucose level before each meal and at bedtime. 3. Hypertension and hypertensive cardio vascular disease. Continue Coreg 12.5 mg orally twice every day, continue hydralazine 50 milligrams orally twice every day (parameters to hold if systolic blood pressure less than 110), resume lisinopril increased to 10 5 mg daily. 4. Hyperlipidemia. Continue patient on Lipitor 40 mg orally once every day. 5. CAD post-PCI in 2010. Continue patient on Coreg 12.5 mg orally twice every day, continue Lipitor 40 mg orally once every day, discontinue aspirin prior to surgical intervention. 6. History of PAD with a recent callus of the right foot, right foot diabetic foot ulcer following at the wound healing Center. Appears to be stable. 7. History of narcolepsy never treated. 8. DVT prophylaxis. Continue aspirin. 9. GI prophylaxis. Continue Protonix 40 mg oral every 24 hours. 10. Patient is full code. DISCHARGE PLAN [facility] once insurance authorization is obtained Impression and plan of care have been directed as dictated by the signing physician. Faith Camarillo nurse practitioner acting as scribe for signing physician. Objective - Vital Signs Vital signs: Vital Signs Temp 98.3 F 08/22/20 07:13 Pulse 76 08/22/20 07:13 Resp 17 08/22/20 07:13 BP 184/89 08/22/20 07:13 Pulse Ox 97 08/22/20 07:13 Intake & Output 08/21/20 08/22/20 08/22/20 18:59 06:59 18:59 Other: Voiding Method Bedside Commode Bedside Commode # Voids 1 1 # Bowel Movements 1 0 - Labs CBC & Chem 7: 08/19/20 08:34 08/19/20 08:34 Labs: Abnormal Lab Results - Last 24 Hours (Table) 08/21/20 08/21/20 08/22/20 Range/Units 17:06 20:32 06:47 POC Glucose (mg/dL) 313 H 253 H 133 H (75-99) mg/dL 08/22/20 08/22/20 Range/Units 11:28 11:45 POC Glucose (mg/dL) 50 L 70 L (75-99) mg/dL
[2020-08-22] MEDS: KETOTIFEN 0.025% OPHTH DROPS 5 ML BTL RIGHT EYE PRN (14:17)
[2020-08-22 14:29] VITALS: BMI 21.2
[2020-08-22 16:36] LABS: Glucose,Whole Blood 189 mg/dL (75-99)
[2020-08-22 20:34] LABS: Glucose,Whole Blood 172 mg/dL (75-99)
[2020-08-22] MEDS: INSULIN DETEMIR (LEVEMIR) 100 UNIT/ML SYR SQ SCH (20:35)
[2020-08-23 06:46] LABS: Glucose,Whole Blood 44 mg/dL (75-99)
[2020-08-23 06:46] LABS: Glucose,Whole Blood 41 mg/dL (75-99)
[2020-08-23 07:05] LABS: Glucose,Whole Blood 59 mg/dL (75-99)
[2020-08-23 07:24] LABS: Glucose,Whole Blood 84 mg/dL (75-99)
[2020-08-23] MEDS: INSULIN ASPART (NovoLOG) 100 UNIT/ML VIAL SQ SCH ×4 (07:42→13:34)
[2020-08-23] MEDS: carvediloL 12.5 MG TAB PO SCH (07:45)
[2020-08-23] MEDS: HYDROcodone/APAP 7.5-325MG 1 EACH TAB PO PRN ×2 (09:31→13:35)
[2020-08-23] MEDS: ASPIRIN 325 MG TAB PO SCH (11:13)
[2020-08-23] MEDS: lisinopriL 10 MG TAB PO SCH (11:13)
[2020-08-23] MEDS: CHOLECALCIFEROL 25 MCG (1000 IU) TABLET PO SCH (11:13)
[2020-08-23] MEDS: ATORVASTATIN 40 MG TAB PO SCH (11:14)
[2020-08-23] MEDS: PANTOPRAZOLE 40 MG TABLET PO SCH (11:14)
[2020-08-23] MEDS: ENOXAPARIN 30 MG/0.3 ML SYRINGE SQ SCH (11:15)
[2020-08-23] MEDS: CYANOCOBALAMIN 500 MCG TAB PO SCH (11:15)
[2020-08-23] MEDS: hydrALAZINE HCL 50 MG TAB PO SCH (11:15)
[2020-08-23] MEDS: SENNOSIDES-DOCUSATE SODIUM 1 EACH TAB PO SCH (11:32)
[2020-08-23 11:42] LABS: Glucose,Whole Blood 211 mg/dL (75-99)
[2020-08-23 13:29] VITALS: BP 144/58; PULSE 87; RESP 18; TEMP 98.6
== END 2020-08-23 13:53 | DRG 482 ==
LOC: 4SSUR 12:26
PROVIDERS: ADMIT Internal Medicine; ATTEND Internal Medicine
PROC: 0QS636Z Reposition Right Upper Femur with Intramedullary Internal Fixation Device, Percutaneous Approach (ICD-10-PCS; principal; 2020-08-16 08:30)
DX: S72.141A Displaced intertrochanteric fracture of right femur, initial encounter for closed fracture (principal); E10.42 Type 1 diabetes mellitus with diabetic polyneuropathy; E10.621 Type 1 diabetes mellitus with foot ulcer; E10.51 Type 1 diabetes mellitus with diabetic peripheral angiopathy without gangrene; D63.1 Anemia in chronic kidney disease; G47.419 Narcolepsy without cataplexy; I48.0 Paroxysmal atrial fibrillation; E10.649 Type 1 diabetes mellitus with hypoglycemia without coma; E10.22 Type 1 diabetes mellitus with diabetic chronic kidney disease; I13.10 Hypertensive heart and chronic kidney disease without heart failure, with stage 1 through stage 4 chronic kidney disease, or unspecified chronic kidney disease; N18.9 Chronic kidney disease, unspecified; L97.519 Non-pressure chronic ulcer of other part of right foot with unspecified severity; Z79.4 Long term (current) use of insulin; Z20.822 Contact with and (suspected) exposure to COVID-19; I25.10 Atherosclerotic heart disease of native coronary artery without angina pectoris; E78.5 Hyperlipidemia, unspecified; K21.9 Gastro-esophageal reflux disease without esophagitis; K59.00 Constipation, unspecified; M54.42 Lumbago with sciatica, left side; M54.41 Lumbago with sciatica, right side; M19.90 Unspecified osteoarthritis, unspecified site; F41.9 Anxiety disorder, unspecified; Z79.82 Long term (current) use of aspirin; Z79.899 Other long term (current) drug therapy; Z60.2 Problems related to living alone; Z86.16 Personal history of COVID-19; Z90.710 Acquired absence of both cervix and uterus; Z90.49 Acquired absence of other specified parts of digestive tract; Z87.19 Personal history of other diseases of the digestive system; Z87.42 Personal history of other diseases of the female genital tract; Z87.39 Personal history of other diseases of the musculoskeletal system and connective tissue; Z95.5 Presence of coronary angioplasty implant and graft; Z98.51 Tubal ligation status; Z98.42 Cataract extraction status, left eye; Z98.41 Cataract extraction status, right eye; Z96.1 Presence of intraocular lens; Z87.891 Personal history of nicotine dependence; Z86.718 Personal history of other venous thrombosis and embolism; Z87.09 Personal history of other diseases of the respiratory system; Z86.018 Personal history of other benign neoplasm; Z98.890 Other specified postprocedural states; Z88.5 Allergy status to narcotic agent; Z88.2 Allergy status to sulfonamides; Z88.8 Allergy status to other drugs, medicaments and biological substances; W10.9XXA Fall (on) (from) unspecified stairs and steps, initial encounter; Y92.008 Other place in unspecified non-institutional (private) residence as the place of occurrence of the external cause; Z81.1 Family history of alcohol abuse and dependence; Z83.79 Family history of other diseases of the digestive system; Z82.49 Family history of ischemic heart disease and other diseases of the circulatory system; Z83.3 Family history of diabetes mellitus; Z84.1 Family history of disorders of kidney and ureter; Z83.2 Family history of diseases of the blood and blood-forming organs and certain disorders involving the immune mechanism; Z80.3 Family history of malignant neoplasm of breast; Z80.8 Family history of malignant neoplasm of other organs or systems; Z82.3 Family history of stroke; Z82.0 Family history of epilepsy and other diseases of the nervous system
CPT/HCPCS: 73502; 80053; 85025; 85027; 87635; 88304; 88311

== ENCOUNTER 2020-09-21 11:09 | Emergency (ER) | payer MEDICARE, OTHER ==
[2020-09-21 11:33] VITALS: TEMP 97.3
[2020-09-21] MEDS ORDERED: ENALAPRILAT 1.25 MG/ML 1 ML VIAL IVP STA (11:55)
[2020-09-21 12:01] LABS: Glucose,Whole Blood 213 mg/dL (75-99)
--- NOTE | 2020-09-21 12:39 | ED ---
General Adult HPI - General Chief complaint: Recheck/Abnormal Lab/Rx Stated complaint: hypoglycemia Time Seen by Provider: 09/21/20 11:41 Source: patient, EMS, RN notes reviewed Mode of arrival: EMS Limitations: no limitations - History of Present Illness Initial comments: This a 68-year-old female presents emergency from via EMS for hyperglycemia. Patient's had recurrent issues with hypoglycemia after she states she had medication changes. She states she is to be on NovoLog and Lantus for several years was recently switched to Humalog. Patient's family called EMS. Found have blood glucose of 29. Patient was given oral glucose, and but dextrose but has improved patient has no complaints. Patient is found to be hypertensive but did not take her morning medications. - Related Data Home Medications Medication Instructions Recorded Confirmed Cholecalciferol [Vitamin D3 (25 2,000 mcg PO DAILY 01/04/20 08/15/20 Mcg = 1000 Iu)] Carvedilol [Coreg] 12.5 mg PO BID 04/15/20 08/15/20 hydrALAZINE HCL [Apresoline] 50 mg PO TID 04/15/20 08/15/20 Atorvastatin Calcium [Lipitor] 40 mg PO DAILY 08/15/20 08/15/20 Cyanocobalamin (Vitamin B-12) 1,000 mcg PO DAILY 08/15/20 08/15/20 [Vitamin B-12] Famotidine 10 mg PO DAILY PRN 08/15/20 08/15/20 Insulin Glargine,Hum.rec.anlog 15 units SQ HS 08/15/20 08/15/20 [Toujeo Solostar] Insulin Lispro [humaLOG Kwikpen] 6 unit SQ AC-TID 08/16/20 08/16/20 Insulin Lispro [humaLOG Kwikpen] See Protocol SQ AC-TID 08/16/20 08/16/20 Previous Rx's Medication Instructions Recorded Aspirin 325 mg PO BID tab 08/19/20 HYDROcodone/APAP 7.5-325MG [[place] 1 each PO Q4H PRN #18 tab 08/19/20 7.5-325] Sennosides-Docusate Sodium 2 each PO HS tab 08/19/20 [Senokot-S] Ketotifen 0.025% Ophth Soln 1 drops RIGHT EYE BID PRN ml 08/22/20 [Zaditor] lisinopriL [Zestril] 10 mg PO DAILY #0 08/22/20 Allergies Allergy/AdvReac Type Severity Reaction Status Date / Time morphine AdvReac PASSES OUT Verified 08/15/20 14:39 nitroglycerin AdvReac PASSES OUT Verified 08/15/20 14:39 Sulfa (Sulfonamide AdvReac Itching Verified 08/15/20 14:39 Antibiotics) Review of Systems ROS Statement: Those systems with pertinent positive or pertinent negative responses have been documented in the HPI. ROS Other: All systems not noted in ROS Statement are negative. Past Medical History Past Medical History: Coronary Artery Disease (CAD), Diabetes Mellitus, Deep Vein Thrombosis (DVT), GERD/Reflux, Hyperlipidemia, Hypertension, Osteoarthritis (OA), Vascular Disorder Additional Past Medical History / Comment(s): IDDM type I with diabetic neuropathy, narcolepsy, DVTs L lower extremity, vertigo occasionally, low back pian with bilateral sciatica, PAD, pneumothorax when pt was in her 20s with chest tube, constipation, bronchitis. The patient also had a infection will COVID 19 on 06/28/2019 from which she recovered. History of Any Multi-Drug Resistant Organisms: None Reported Past Surgical History: Appendectomy, Cholecystectomy, Heart Catheterization With Stent, Hysterectomy, Tubal Ligation Additional Past Surgical History / Comment(s): PCI/stent, ectopic pregnancies with eventual total hysterectomy, EGD, colonoscopy, L breast biopsy-benign, bilateral carpal tunnel release, bilateral eyes laser surgery/lens. Past Anesthesia/Blood Transfusion Reactions: Previous Problems w/ Anesthesia, Postoperative Nausea & Vomiting (PONV) Additional Past Anesthesia/Blood Transfusion Reaction / Comment(s): PT STATES HER AND HER FAMILY HAVE DIFFICULTY WAKING UP Date of Last Stent Placement:: Past Psychological History: No Psychological Hx Reported Smoking Status: Never smoker Past Alcohol Use History: None Reported Past Drug Use History: None Reported - Past Family History Mother Family Medical History: Hypertension, Seizure Disorder Additional Family Medical History / Comment(s): Mother at age 75 Father Family Medical History: Renal Disease Additional Family Medical History / Comment(s): Father at age 58 from acute renal failure and he was an alcoholic. Son(s) Family Medical History: No Reported History Additional Family Medical History / Comment(s): Patient has 2 sons with no major medical problems. General Exam Limitations: no limitations General appearance: alert, in no apparent distress Head exam: Present: atraumatic, normocephalic, normal inspection Eye exam: Present: normal appearance, PERRL, EOMI. Absent: scleral icterus, conjunctival injection, periorbital swelling ENT exam: Present: normal exam, mucous membranes moist Neck exam: Present: normal inspection, full ROM. Absent: tenderness, meningismus, lymphadenopathy Respiratory exam: Present: normal lung sounds bilaterally. Absent: respiratory distress, wheezes, rales, rhonchi, stridor Cardiovascular Exam: Present: regular rate, normal rhythm, normal heart sounds. Absent: systolic murmur, diastolic murmur, rubs, gallop, clicks GI/Abdominal exam: Present: soft, normal bowel sounds. Absent: distended, tenderness, guarding, rebound, rigid Neurological exam: Present: alert, oriented X3 Course Vital Signs 09/21/20 09/21/20 11:26 13:01 Temperature 97.3 F L Pulse Rate 72 79 Respiratory 18 16 Rate Blood Pressure 198/102 214/101 O2 Sat by Pulse 100 100 Oximetry Medical Decision Making - Medical Decision Making Patient has been observed for over an hour with no recurrent hypoglycemia. Patient be discharged in stable condition patient provided blood pressure control. 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 Is patient prescribed a controlled substance at d/c from ED?: No Referrals: Mary Heath MD [Primary Care Provider] - 1-2 days Time of Disposition: 13:21
[2020-09-21 13:04] VITALS: RESP 16
[2020-09-21] MEDS ORDERED: hydrALAZINE HCL 20 MG/ML 1 ML VIAL IVP STA (13:06)
[2020-09-21 13:08] LABS: Glucose,Whole Blood 191 mg/dL (75-99)
[2020-09-21 14:04] VITALS: BP 185/89; PULSE 76
== END 2020-09-21 13:47 | disposition home or self-care (01) ==
LOC: EC 11:09
DX: I10 Essential (primary) hypertension (principal); E10.649 Type 1 diabetes mellitus with hypoglycemia without coma; E10.40 Type 1 diabetes mellitus with diabetic neuropathy, unspecified; E78.5 Hyperlipidemia, unspecified; I25.10 Atherosclerotic heart disease of native coronary artery without angina pectoris; K21.9 Gastro-esophageal reflux disease without esophagitis; M19.90 Unspecified osteoarthritis, unspecified site; Z79.82 Long term (current) use of aspirin; Z79.899 Other long term (current) drug therapy; Z82.49 Family history of ischemic heart disease and other diseases of the circulatory system; Z86.718 Personal history of other venous thrombosis and embolism; Z88.2 Allergy status to sulfonamides; Z88.5 Allergy status to narcotic agent; Z90.49 Acquired absence of other specified parts of digestive tract
CPT/HCPCS: 36415; 96374; 96375; 99284; J0360

== ENCOUNTER 2020-10-27 14:34 | Emergency (ER) | payer MEDICARE, OTHER ==
[2020-10-27 14:45] VITALS: TEMP 98.8
[2020-10-27] MEDS ORDERED: SODIUM CHLORIDE 0.9% 500 ML 500 ML IV STA (15:11)
[2020-10-27] MEDS ORDERED: hydrALAZINE HCL 20 MG/ML 1 ML VIAL IVP STA (15:12)
[2020-10-27 15:23] LABS: Basophils % (A) 1 %; Eosinophils # (A) 0.2 k/uL (0-0.7); Eosinophils % (A) 3 %; HCT 32.1 % (34.0-46.0); HGB 10.5 gm/dL (11.4-16.0); Lymphocytes # (A) 0.9 k/uL (1.0-4.8); Lymphocytes % (A) 19 %; MCH 29.1 pg (25.0-35.0); MCHC 32.8 g/dL (31.0-37.0); MCV 88.7 fL (80.0-100.0); Mean Platelet Volume 8.7; Monocytes # (A) 0.3 k/uL (0-1.0); Monocytes % (A) 6 %; Neutrophils # (A) 3.3 k/uL (1.3-7.7); Neutrophils % (A) 69 %; Platelet Count 224 k/uL (150-450); RBC 3.62 m/uL (3.80-5.40); RDW 15.2 % (11.5-15.5); WBC 4.7 k/uL (3.8-10.6)
[2020-10-27 15:37] LABS: Albumin 3.7 g/dL (3.5-5.0); Calcium 9.6 mg/dL (8.4-10.2); Potassium 3.9 mmol/L (3.5-5.1); Total Bilirubin 0.5 mg/dL (0.2-1.3); Total Protein 6.4 g/dL (6.3-8.2)
--- NOTE | 2020-10-27 15:42 | ED ---
General Adult HPI - General Chief complaint: Head Injury Stated complaint: Head Injury-Fall Time Seen by Provider: 10/27/20 14:45 Source: patient, RN notes reviewed, old records reviewed Mode of arrival: wheelchair Limitations: no limitations - History of Present Illness Initial comments: This is a 70-year-old female presents emergency Department with a past medical history significant for hypertension. Patient states she's been working on getting that under control for the last year. Patient states yesterday she tripped over her walker and fell onto her right side and hit her head. Patient states she's had no extremity pain she denies neck pain or back pain. Patient denies any abdominal pain or chest pain. Patient states her only complaint is that the back of her head and today she felt a little dizzy but not presyncopal. Patient states there is a lump on the back of her head so she decided come in and be evaluated. Patient's blood pressure was 200/105 and she states that this is normal for her over the last year. Patient states she's on at least 3 blood pressure medications and she takes him multiple times a day. Patient denies any chest pain or pressure or heaviness or difficulty breathing or shortness of breath per patient denies any recent fever chills or cough. - Related Data Home Medications Medication Instructions Recorded Confirmed Cholecalciferol [Vitamin D3 (25 50 mcg PO DAILY 01/04/20 10/27/20 Mcg = 1000 Iu)] Carvedilol [Coreg] 12.5 mg PO BID 04/15/20 10/27/20 hydrALAZINE HCL [Apresoline] 50 mg PO TID 04/15/20 10/27/20 Atorvastatin Calcium [Lipitor] 40 mg PO DAILY 08/15/20 10/27/20 Cyanocobalamin (Vitamin B-12) 1,000 mcg PO DAILY 08/15/20 10/27/20 [Vitamin B-12] Insulin Glargine,Hum.rec.anlog 12 units SQ HS 08/15/20 10/27/20 [Jaxson Read] Insulin Lispro [humaLOG Kwikpen] 6 unit SQ AC-BID@0900,1200 08/16/20 10/27/20 Insulin Lispro [humaLOG Kwikpen] 8 unit SQ AC-SUPPER 08/16/20 10/27/20 Aspirin 325 mg PO DAILY 10/27/20 10/27/20 Ciprofloxacin HCl [Cipro] 250 mg PO Q12H 10/27/20 10/27/20 Furosemide [Lasix] 40 mg PO BID 10/27/20 10/27/20 Ketotifen 0.025% Ophth Soln 1 drop RIGHT EYE BID PRN 10/27/20 10/27/20 [Zaditor] Sennosides-Docusate Sodium 2 tab PO HS 10/27/20 10/27/20 [Senokot-S] lisinopriL [Zestril] 5 mg PO DAILY 10/27/20 10/27/20 Allergies Allergy/AdvReac Type Severity Reaction Status Date / Time morphine AdvReac PASSES OUT Verified 10/27/20 17:13 nitroglycerin AdvReac PASSES OUT Verified 10/27/20 17:13 Sulfa (Sulfonamide AdvReac Itching Verified 10/27/20 17:13 Antibiotics) Review of Systems ROS Statement: Those systems with pertinent positive or pertinent negative responses have been documented in the HPI. ROS Other: All systems not noted in ROS Statement are negative. Past Medical History Past Medical History: Coronary Artery Disease (CAD), Diabetes Mellitus, Deep Vein Thrombosis (DVT), GERD/Reflux, Hyperlipidemia, Hypertension, Osteoarthritis (OA), Vascular Disorder Additional Past Medical History / Comment(s): IDDM type I with diabetic neuropathy, narcolepsy, DVTs L lower extremity, vertigo occasionally, low back pian with bilateral sciatica, PAD, pneumothorax when pt was in her 20s with chest tube, constipation, bronchitis. The patient also had a infection will COVID 19 on 06/28/2019 from which she recovered. History of Any Multi-Drug Resistant Organisms: None Reported Past Surgical History: Appendectomy, Cholecystectomy, Heart Catheterization With Stent, Hysterectomy, Tubal Ligation Additional Past Surgical History / Comment(s): PCI/stent, ectopic pregnancies with eventual total hysterectomy, EGD, colonoscopy, L breast biopsy-benign, bilateral carpal tunnel release, bilateral eyes laser surgery/lens. Past Anesthesia/Blood Transfusion Reactions: Previous Problems w/ Anesthesia, Postoperative Nausea & Vomiting (PONV) Additional Past Anesthesia/Blood Transfusion Reaction / Comment(s): PT STATES HER AND HER FAMILY HAVE DIFFICULTY WAKING UP Date of Last Stent Placement:: Past Psychological History: No Psychological Hx Reported Smoking Status: Never smoker Past Alcohol Use History: None Reported Past Drug Use History: None Reported - Past Family History Mother Family Medical History: Hypertension, Seizure Disorder Additional Family Medical History / Comment(s): Mother at age 75 Father Family Medical History: Renal Disease Additional Family Medical History / Comment(s): Father at age 58 from acute renal failure and he was an alcoholic. Son(s) Family Medical History: No Reported History Additional Family Medical History / Comment(s): Patient has 2 sons with no major medical problems. General Exam - General Exam Comments Initial Comments: GENERAL: Patient is well-developed and well-nourished. Patient is nontoxic and well- hydrated and is in no acute distress. ENT: Neck is soft and supple. No significant lymphadenopathy is noted. Oropharynx is clear. Moist mucous membranes. Neck has full range of motion without eliciting any pain. Patient has a small hematoma on the back of her head in the right occipital region EYES: The sclera were anicteric and conjunctiva were pink and moist. Extraocular movements were intact and pupils were equal round and reactive to light. Eyelids were unremarkable. PULMONARY: Unlabored respirations. Good breath sounds bilaterally. No audible rales rhonchi or wheezing was noted. CARDIOVASCULAR: There is a regular rate and rhythm without any murmurs gallops or rubs. ABDOMEN: Soft and nontender with normal bowel sounds. SKIN: Skin is clear with no lesions or rashes and otherwise unremarkable. NEUROLOGIC: Patient is alert and oriented x3. Cranial nerves II through XII are grossly intact. Motor and sensory are also intact. Normal speech, volume and content. Symmetrical smile. MUSCULOSKELETAL: Normal extremities with adequate strength and full range of motion. No lower extremity swelling or edema. No calf tenderness. LYMPHATICS: No significant lymphadenopathy is noted PSYCHIATRIC: Normal psychiatric evaluation. Limitations: no limitations Course Vital Signs 10/27/20 10/27/20 10/27/20 14:41 15:30 16:00 Temperature 98.8 F Pulse Rate 77 82 84 Respiratory 19 18 18 Rate Blood Pressure 196/90 209/107 196/94 O2 Sat by Pulse 97 96 94 L Oximetry 10/27/20 10/27/20 10/27/20 16:30 17:00 17:30 Temperature Pulse Rate 81 81 76 Respiratory 18 18 18 Rate Blood Pressure 172/83 184/96 170/83 O2 Sat by Pulse 99 92 L 97 Oximetry 10/27/20 18:00 Temperature Pulse Rate 73 Respiratory 18 Rate Blood Pressure 160/75 O2 Sat by Pulse 96 Oximetry Medical Decision Making - Medical Decision Making EKG shows normal sinus rhythm at 83 bpm GA interval 244 QRS is 106 QT interval 390 QTC is 458. Patient's EKG shows inverted T waves in the inferior leads which were seen previously. Patient's CT of the brain and C-spine showed no acute abnormality. Patient had a high blood pressure gave her some hydralazine about her blood pressure down. Patient's sugar was elevated and I gave her some Humalog in his sugar also came down. Patient states she's had problems with her sugar ever since she was taken off her Lantus. I discussed possibly keeping the patient patient refused to stay she wanted to follow-up as an outpatient. - Lab Data Result diagrams: 10/27/20 15:14 10/27/20 15:14 Lab Results 10/27/20 10/27/20 10/27/20 Range/Units 15:14 15:14 15:14 WBC 4.7 (3.8-10.6) k/uL RBC 3.62 L (3.80-5.40) m/uL Hgb 10.5 L (11.4-16.0) gm/dL Hct 32.1 L (34.0-46.0) % MCV 88.7 (80.0-100.0) fL MCH 29.1 (25.0-35.0) pg MCHC 32.8 (31.0-37.0) g/dL RDW 15.2 (11.5-15.5) % Plt Count 224 (150-450) k/uL MPV 8.7 Neutrophils % 69 % Lymphocytes % 19 % Monocytes % 6 % Eosinophils % 3 % Basophils % 1 % Neutrophils # 3.3 (1.3-7.7) k/uL Lymphocytes # 0.9 L (1.0-4.8) k/uL Monocytes # 0.3 (0-1.0) k/uL Eosinophils # 0.2 (0-0.7) k/uL Basophils # 0.0 (0-0.2) k/uL Sodium 137 (137-145) mmol/L Potassium 3.9 (3.5-5.1) mmol/L Chloride 97 L (98-107) mmol/L Carbon Dioxide 32 H (22-30) mmol/L Anion Gap 8 mmol/L BUN 30 H (7-17) mg/dL Creatinine 1.03 (0.52-1.04) mg/dL Est GFR (CKD-EPI)AfAm 63 (>60 ml/min/1.73 sqM) Est GFR (CKD-EPI)NonAf 55 (>60 ml/min/1.73 sqM) Glucose 408 H (74-99) mg/dL POC Glucose (mg/dL) (75-99) mg/dL POC Glu Glue Clamp Operator ID Calcium 9.6 (8.4-10.2) mg/dL Magnesium 2.0 (1.6-2.3) mg/dL Total Bilirubin 0.5 (0.2-1.3) mg/dL AST 23 (14-36) U/L ALT 16 (4-34) U/L Alkaline Phosphatase 118 (38-126) U/L Troponin I 0.013 (0.000-0.034) ng/mL Total Protein 6.4 (6.3-8.2) g/dL Albumin 3.7 (3.5-5.0) g/dL 10/27/20 10/27/20 Range/Units 16:19 17:11 WBC (3.8-10.6) k/uL RBC (3.80-5.40) m/uL Hgb (11.4-16.0) gm/dL Hct (34.0-46.0) % MCV (80.0-100.0) fL MCH (25.0-35.0) pg MCHC (31.0-37.0) g/dL RDW (11.5-15.5) % Plt Count (150-450) k/uL MPV Neutrophils % % Lymphocytes % % Monocytes % % Eosinophils % % Basophils % % Neutrophils # (1.3-7.7) k/uL Lymphocytes # (1.0-4.8) k/uL Monocytes # (0-1.0) k/uL Eosinophils # (0-0.7) k/uL Basophils # (0-0.2) k/uL Sodium (137-145) mmol/L Potassium (3.5-5.1) mmol/L Chloride (98-107) mmol/L Carbon Dioxide (22-30) mmol/L Anion Gap mmol/L BUN (7-17) mg/dL Creatinine (0.52-1.04) mg/dL Est GFR (CKD-EPI)AfAm (>60 ml/min/1.73 sqM) Est GFR (CKD-EPI)NonAf (>60 ml/min/1.73 sqM) Glucose (74-99) mg/dL POC Glucose (mg/dL) 350 H 268 H (75-99) mg/dL POC Glu Glue Clamp Operator Stephanie Sanchez Katie Calcium (8.4-10.2) mg/dL Magnesium (1.6-2.3) mg/dL Total Bilirubin (0.2-1.3) mg/dL AST (14-36) U/L ALT (4-34) U/L Alkaline Phosphatase (38-126) U/L Troponin I (0.000-0.034) ng/mL Total Protein (6.3-8.2) g/dL Albumin (3.5-5.0) g/dL Disposition Clinical Impression: Scalp hematoma, Hypertension, Hyperglycemia Disposition: HOME SELF-CARE Instructions (If sedation given, give patient instructions): Head Injury (ED), Hypertension and Diabetes (ED) Is patient prescribed a controlled substance at d/c from ED?: No Referrals: Mary Heath MD [Primary Care Provider] - 1-2 days Time of Disposition: 18:39
[2020-10-27 15:54] VITALS: RESP 18
[2020-10-27] MEDS ORDERED: INSULIN ASPART (NovoLOG) 100 UNIT/ML VIAL SQ ONE (15:58)
--- NOTE | 2020-10-27 15:59 | CT ---
EXAMINATION TYPE: CT brain cspine wo con DATE OF EXAM: 10/27/2020 COMPARISON: CT brain April 03, 2014 HISTORY: Right posterior headache and neck pain after fall. CT DLP: 1237.3 mGycm. Automated Exposure Control for Dose Reduction was Utilized. TECHNIQUE: CT scan of the head and cervical spine are performed without contrast. FINDINGS: There is no acute intracranial hemorrhage or midline shift identified. Mild to moderate v entricular and sulcal prominence with mild to moderate areas of low-attenuation in the deep and periv entricular white matter. The calvarium is intact. There is new moderate sized right parietal acute s calp hematoma axial image 39. Bilateral basal ganglia calcifications redemonstrated. The globes are i ntact and the visualized sinuses are clear. Mild to moderate calcified plaque distal internal carotid arteries bilaterally. Cervical spine is visualized in its entirety from C1 through upper thoracic levels and demonstrates g rade 1 retrolisthesis C4 on C5 without evidence of acute fracture or dislocation. Prevertebral soft tissue appears within normal limits. The C1-C2 articulation is within normal limits on the coronal i mages. Atlantodental interval narrowing seen on sagittal images. Vertebral body heights are maintaine d. Mild to moderate disc space narrowing and spurring greatest right C4-C5 level. Posterior spur disc complex effacing the anterior thecal sac at this level on sagittal images. Additional posterior disc herniation at C5-C6 level effacing the anterior thecal sac on sagittal and axial images. Review of a xial images shows moderate calcified plaque near bilateral carotid bulb levels. Thyroid gland falls w ithin normal limits. Lung apices show no pneumothorax. IMPRESSION: 1. There is no acute fracture or dislocation evident in the cervical spine. 2. No acute intracranial hemorrhage or midline shift is seen. There is moderate sized acute right par ietal scalp hematoma.
[2020-10-27 16:21] LABS: Glucose,Whole Blood 350 mg/dL (75-99)
[2020-10-27] MEDS ORDERED: ENALAPRILAT 1.25 MG/ML 1 ML VIAL IVP STA (16:53)
[2020-10-27 17:13] LABS: Glucose,Whole Blood 268 mg/dL (75-99)
[2020-10-27 19:22] VITALS: BP 141/72; PULSE 74
== END 2020-10-27 19:21 | disposition home or self-care (01) ==
LOC: EC 14:34
DX: S00.03XA Contusion of scalp, initial encounter (principal); I10 Essential (primary) hypertension; E11.65 Type 2 diabetes mellitus with hyperglycemia; E11.40 Type 2 diabetes mellitus with diabetic neuropathy, unspecified; I25.10 Atherosclerotic heart disease of native coronary artery without angina pectoris; K21.9 Gastro-esophageal reflux disease without esophagitis; E78.5 Hyperlipidemia, unspecified; M19.90 Unspecified osteoarthritis, unspecified site; Z79.4 Long term (current) use of insulin; Z79.82 Long term (current) use of aspirin; Z79.899 Other long term (current) drug therapy; Z88.2 Allergy status to sulfonamides; Z88.5 Allergy status to narcotic agent; Z86.718 Personal history of other venous thrombosis and embolism; Z86.16 Personal history of COVID-19; Z90.49 Acquired absence of other specified parts of digestive tract; Z90.710 Acquired absence of both cervix and uterus; Z98.51 Tubal ligation status; W01.10XA Fall on same level from slipping, tripping and stumbling with subsequent striking against unspecified object, initial encounter
CPT/HCPCS: 99284; 96374; 96375; 36415; 93005; 80053; 83735; 84484; 85025; 72125; 70450; J0360

== ENCOUNTER 2020-11-27 02:17 | Inpatient (IN) | payer MEDICARE, OTHER ==
[2020-11-27 02:27] LABS: Glucose,Whole Blood 438 mg/dL (75-99)
[2020-11-27] MEDS ORDERED: SODIUM CHLORIDE 0.9% 1,000 ML IV ONE (02:28)
[2020-11-27 03:23] LABS: ALT 16 U/L (4-34); AST 23 U/L (14-36); African American GFR (CKD) 41 (>60 ml/min/1.73 sqM); Albumin 3.5 g/dL (3.5-5.0); Alkaline Phosphatase 130 U/L (38-126); Anion Gap 10 mmol/L; Blood Urea Nitrogen 51 mg/dL (7-17); Calcium 9.4 mg/dL (8.4-10.2); Carbon Dioxide 25 mmol/L (22-30); Chloride 96 mmol/L (98-107); Glucose 466 mg/dL (74-99); Non-African American GFR(CKD) 35 (>60 ml/min/1.73 sqM); Potassium 3.9 mmol/L (3.5-5.1); Sodium 131 mmol/L (137-145); Total Bilirubin 0.5 mg/dL (0.2-1.3)
[2020-11-27 03:34] LABS: Anisocytosis Slight; Basophils % (A) 0 %; Eosinophils % (A) 1 %; HCT 34.8 % (34.0-46.0); HGB 11.2 gm/dL (11.4-16.0); Lymphocytes # (A) 1.2 k/uL (1.0-4.8); Lymphocytes % (A) 18 %; MCH 28.1 pg (25.0-35.0); MCHC 32.2 g/dL (31.0-37.0); MCV 87.3 fL (80.0-100.0); Mean Platelet Volume 9.4; Monocytes # (A) 0.4 k/uL (0-1.0); Monocytes % (A) 6 %; Neutrophils # (A) 4.9 k/uL (1.3-7.7); Neutrophils % (A) 73 %; Platelet Count 220 k/uL (150-450); RBC 3.99 m/uL (3.80-5.40); RDW 16.1 % (11.5-15.5); WBC 6.7 k/uL (3.8-10.6)
[2020-11-27] MEDS ORDERED: NALOXONE 0.4 MG/ML 1 ML VIAL IV PRN (05:47)
[2020-11-27] MEDS ORDERED: ONDANSETRON 4 MG/2 ML VIAL IVP PRN (05:47)
[2020-11-27] MEDS: SODIUM CHLORIDE 0.9% 1,000 ML IV SCH ×3 (06:17→20:40)
[2020-11-27 07:28] LABS: Glucose,Whole Blood 461 mg/dL (75-99)
[2020-11-27] MEDS: CHOLECALCIFEROL 25 MCG (1000 IU) TABLET PO SCH ×2 (08:21→09:25)
[2020-11-27] MEDS: CYANOCOBALAMIN 500 MCG TAB PO SCH ×2 (08:21→09:25)
[2020-11-27] MEDS: FAMOTIDINE 20 MG TAB PO SCH ×3 (08:21→20:36)
[2020-11-27] MEDS: ASPIRIN 325 MG TAB PO SCH ×2 (08:21→12:04)
[2020-11-27] MEDS: carvediloL 12.5 MG TAB PO SCH ×2 (08:22→18:41)
[2020-11-27] MEDS: hydrALAZINE HCL 50 MG TAB PO SCH ×3 (08:22→22:54)
[2020-11-27] MEDS ORDERED: lisinopriL 5 MG TAB PO SCH (09:00)
[2020-11-27] MEDS ORDERED: ATORVASTATIN 40 MG TAB PO SCH (09:00)
[2020-11-27] MEDS ORDERED: INSULIN ASPART (NovoLOG) 100 UNIT/ML VIAL SQ SCH ×2 (09:00→17:30)
[2020-11-27] MEDS ORDERED: KETOTIFEN 0.025% OPHTH DROPS 5 ML BTL RIGHT EYE PRN (09:00)
[2020-11-27 09:21] LABS: Glucose,Whole Blood 489 mg/dL (75-99)
[2020-11-27] MEDS ORDERED: Magnesium Replacement Protocol 1 EACH MISC MISCELLANE PRN (11:18)
[2020-11-27] MEDS ORDERED: INSULIN REGULAR BOLUS (FROM DRIP BAG) IV ONE (11:18)
[2020-11-27] MEDS ORDERED: Potassium Replacement Protocol 1 EACH MISC MISCELLANE PRN (11:18)
[2020-11-27 11:40] LABS: Glucose,Whole Blood 387 mg/dL (75-99)
[2020-11-27] MEDS: INSULIN REGULAR 100 UNIT in SODIUM CHLORIDE 0.9% 100 ML IV SCH (11:58)
[2020-11-27 13:09] LABS: Glucose,Whole Blood 340 mg/dL (75-99)
[2020-11-27 14:18] LABS: Glucose,Whole Blood 299 mg/dL (75-99)
[2020-11-27 15:34] LABS: Glucose,Whole Blood 219 mg/dL (75-99)
[2020-11-27 16:57] LABS: Glucose,Whole Blood 149 mg/dL (75-99)
[2020-11-27 17:18] LABS: Potassium 3.5 mmol/L (3.5-5.1)
[2020-11-27 18:00] LABS: Glucose,Whole Blood 123 mg/dL (75-99)
--- NOTE | 2020-11-27 18:04 | P.HPIM ---
History of Present Illness H&P Date: 11/27/20 Chief Complaint: Hyperglycemia 70 year old female patient with history of diabetes mellitus type 1, presented to ED with EMS with complaint of hyperglycemia; patient reports that some changes have been made in her insulin by her primary sanitary chemist; patient reports since those changes were made about 2 months ago, blood sugars have been uncontrolled; reports she has been taking her insulin as instructed. Patient reports that for the past couple days her blood sugars have been staying very high and staying in 600s despite use of high-dose insulin; patient does give history of nausea and vomiting and increased urination Blood work completed in ED reveals a WBC of 6.7, hemoglobin 11.2, platelet count of 220, sodium 136, potassium 3.5, BUN/creatinine of 41/1.09; serum acetones are positive Patient was given IV fluid resuscitation in ED and is admitted for further treatment and evaluation Review of Systems REVIEW OF SYSTEMS: CONSTITUTIONAL: No fever, no malaise, no fatigue. HEENT: No recent visual problems or hearing problems. Denied any sore throat. CARDIOVASCULAR: No chest pain, orthopnea, PND, no palpitations, no syncope. PULMONARY: No shortness of breath, no cough, no hemoptysis. GASTROINTESTINAL: Complains of nausea/vomiting and abdominal pain. NEUROLOGICAL: No headaches, no weakness, no numbness. HEMATOLOGICAL: Denies any bleeding or petechiae. GENITOURINARY: Denies any burning micturition, frequency, or urgency. MUSCULOSKELETAL/RHEUMATOLOGICAL: Denies any joint pain, swelling, or any muscle pain. ENDOCRINE: Denies any polyuria or polydipsia. The rest of the 14-point review of systems is negative. Past Medical History Past Medical History: Coronary Artery Disease (CAD), Diabetes Mellitus, Deep Vein Thrombosis (DVT), GERD/Reflux, Hyperlipidemia, Hypertension, Osteoarthritis (OA), Vascular Disorder Additional Past Medical History / Comment(s): IDDM type I with diabetic neuropathy, narcolepsy, DVTs L lower extremity, vertigo occasionally, low back pian with bilateral sciatica, PAD, pneumothorax when pt was in her 20s with chest tube, constipation, bronchitis. The patient also had a infection will COVID 19 on 06/28/2019 from which she recovered. History of Any Multi-Drug Resistant Organisms: None Reported Past Surgical History: Appendectomy, Cholecystectomy, Heart Catheterization With Stent, Hysterectomy, Tubal Ligation Additional Past Surgical History / Comment(s): PCI/stent, ectopic pregnancies with eventual total hysterectomy, EGD, colonoscopy, L breast biopsy-benign, bilateral carpal tunnel release, bilateral eyes laser surgery/lens. Past Anesthesia/Blood Transfusion Reactions: Previous Problems w/ Anesthesia, Postoperative Nausea & Vomiting (PONV) Additional Past Anesthesia/Blood Transfusion Reaction / Comment(s): PT STATES HER AND HER FAMILY HAVE DIFFICULTY WAKING UP Date of Last Stent Placement:: Past Psychological History: No Psychological Hx Reported Smoking Status: Never smoker Past Alcohol Use History: None Reported Past Drug Use History: None Reported - Past Family History Mother Family Medical History: Hypertension, Seizure Disorder Additional Family Medical History / Comment(s): Mother at age 75 Father Family Medical History: Renal Disease Additional Family Medical History / Comment(s): Father at age 58 from acute renal failure and he was an alcoholic. Son(s) Family Medical History: No Reported History Additional Family Medical History / Comment(s): Patient has 2 sons with no major medical problems. Medications and Allergies Home Medications Medication Instructions Recorded Confirmed Type Carvedilol [Coreg] 12.5 mg PO BID 04/15/20 11/27/20 History hydrALAZINE HCL [Apresoline] 50 mg PO TID 04/15/20 11/27/20 History Insulin Lispro [humaLOG Kwikpen] 6 unit SQ AC-TID 08/16/20 11/27/20 History lisinopriL 20 mg PO BID 11/27/20 11/27/20 History Allergies Allergy/AdvReac Type Severity Reaction Status Date / Time morphine AdvReac PASSES OUT Verified 11/27/20 08:50 nitroglycerin AdvReac PASSES OUT Verified 11/27/20 08:50 Sulfa (Sulfonamide AdvReac Itching Verified 11/27/20 08:50 Antibiotics) Physical Exam Vitals: Vital Signs Temp Pulse Resp BP Pulse Ox 11/27/20 07:38 98 F 82 18 182/93 97 11/27/20 06:16 83 17 163/83 98 11/27/20 02:18 97.8 F 78 17 189/98 99 Intake and Output 11/26/20 11/27/20 11/27/20 22:59 06:59 14:59 Other: Weight 62.142 kg PHYSICAL EXAMINATION: GENERAL: The patient is alert and oriented x3, not in any acute distress. Well developed, well nourished. HEENT: Pupils are round and equally reacting to light. EOMI. No scleral icterus. No conjunctival pallor. Normocephalic, atraumatic. No pharyngeal erythema. No thyromegaly. CARDIOVASCULAR: S1 and S2 present. No murmurs, rubs, or gallops. PULMONARY: Chest is clear to auscultation, no wheezing or crackles. ABDOMEN: Soft, nontender, nondistended, normoactive bowel sounds. No palpable organomegaly. MUSCULOSKELETAL: No joint swelling or deformity. EXTREMITIES: No cyanosis, clubbing, or pedal edema. NEUROLOGICAL: Gross neurological examination did not reveal any focal deficits. SKIN: No rashes. Results CBC & Chem 7: 11/27/20 02:36 11/27/20 16:53 Labs: Abnormal Lab Results - Last 24 Hours (Table) 11/27/20 11/27/20 11/27/20 Range/Units 02:25 02:36 02:36 Hgb 11.2 L (11.4-16.0) gm/dL RDW 16.1 H (11.5-15.5) % Sodium 131 L (137-145) mmol/L Chloride 96 L (98-107) mmol/L BUN 51 H (7-17) mg/dL Creatinine 1.48 H (0.52-1.04) mg/dL Glucose 466 H (74-99) mg/dL POC Glucose (mg/dL) 438 H (75-99) mg/dL Alkaline Phosphatase 130 H (38-126) U/L Total Protein 6.0 L (6.3-8.2) g/dL 11/27/20 Range/Units 07:26 Hgb (11.4-16.0) gm/dL RDW (11.5-15.5) % Sodium (137-145) mmol/L Chloride (98-107) mmol/L BUN (7-17) mg/dL Creatinine (0.52-1.04) mg/dL Glucose (74-99) mg/dL POC Glucose (mg/dL) 461 H (75-99) mg/dL Alkaline Phosphatase (38-126) U/L Total Protein (6.3-8.2) g/dL Assessment and Plan Assessment: 1. Hyperglycemia/borderline DKA - Patient has been placed on IV fluids in form of normal saline at a rate of 1 30 mL an hour; we will monitor strict AR's and monitor Accu-Cheks every before meals and at bedtime; we will monitor renal function and electrolytes frequently with plans to initiate treatment with full DKA protocol if anion gap changes or CO2 continues to trend down 2. Acute renal injury/dehydration; continue with IV fluids as indicated above; we will monitor strict AR's and daily weight; monitor renal function and electrolytes; avoid nephrotoxins and hypotension 3. Hypertension; we will continue with home dose of Coreg 12.5 mg twice a day; hydralazine 50 mg by mouth 3 times a day; hold down on lisinopril 20 mg twice a day till renal function improves 4. Diabetes mellitus type 1/uncontrolled; patient reports uncontrolled blood sugars are past few weeks since change in and treatment; did recommend to patient to follow-up with sanitary chemist as outpatient till blood sugars are brought under strict control DVT prophylaxis; SCDs/subcu heparin CODE STATUS; full code
[2020-11-27] MEDS: POTASSIUM CHLORIDE ER 20 MEQ TAB.ER PO SCH (18:44)
[2020-11-27 19:06] LABS: Glucose,Whole Blood 105 mg/dL (75-99)
[2020-11-27 20:14] LABS: Glucose,Whole Blood 132 mg/dL (75-99)
[2020-11-27] MEDS: lisinopriL 20 MG TAB PO SCH (20:36)
[2020-11-27] MEDS ORDERED: INSULIN DETEMIR (LEVEMIR) 100 UNIT/ML SYR SQ SCH (21:00)
[2020-11-27] MEDS ORDERED: SENNOSIDES-DOCUSATE SODIUM 1 EACH TAB PO SCH (21:00)
[2020-11-27 21:06] LABS: Glucose,Whole Blood 188 mg/dL (75-99)
[2020-11-27 21:08] LABS: Potassium 4.5 mmol/L (3.5-5.1)
[2020-11-27 23:03] LABS: Glucose,Whole Blood 191 mg/dL (75-99)
[2020-11-28] LABS: Glucose,Whole Blood 210 mg/dL (75-99)
[2020-11-28 01:18] LABS: Glucose,Whole Blood 182 mg/dL (75-99)
[2020-11-28 02:05] LABS: Glucose,Whole Blood 166 mg/dL (75-99)
[2020-11-28 03:06] LABS: Glucose,Whole Blood 196 mg/dL (75-99)
[2020-11-28 04:50] LABS: Glucose,Whole Blood 192 mg/dL (75-99)
[2020-11-28 05:53] LABS: Glucose,Whole Blood 221 mg/dL (75-99)
[2020-11-28] MEDS: carvediloL 12.5 MG TAB PO SCH ×2 (06:18→15:34)
[2020-11-28] MEDS: SODIUM CHLORIDE 0.9% 1,000 ML IV SCH (06:21)
[2020-11-28 07:20] LABS: Glucose,Whole Blood 270 mg/dL (75-99)
[2020-11-28 07:47] LABS: Basophils % (A) 0 %; Eosinophils # (A) 0.1 k/uL (0-0.7); Eosinophils % (A) 2 %; HCT 31.7 % (34.0-46.0); Lymphocytes % (A) 19 %; MCH 28.2 pg (25.0-35.0); MCHC 31.5 g/dL (31.0-37.0); MCV 89.7 fL (80.0-100.0); Mean Platelet Volume 9.4; Monocytes # (A) 0.2 k/uL (0-1.0); Monocytes % (A) 4 %; Neutrophils # (A) 3.8 k/uL (1.3-7.7); Neutrophils % (A) 73 %; Platelet Count 178 k/uL (150-450); RBC 3.54 m/uL (3.80-5.40); RDW 15.7 % (11.5-15.5); WBC 5.2 k/uL (3.8-10.6)
[2020-11-28 08:00] LABS: Calcium 8.5 mg/dL (8.4-10.2); Potassium 4.6 mmol/L (3.5-5.1)
[2020-11-28 08:05] LABS: Glucose,Whole Blood 213 mg/dL (75-99)
[2020-11-28] MEDS: FAMOTIDINE 20 MG TAB PO SCH (08:08)
[2020-11-28] MEDS: lisinopriL 20 MG TAB PO SCH (08:08)
[2020-11-28] MEDS: hydrALAZINE HCL 50 MG TAB PO SCH ×2 (08:08→15:34)
[2020-11-28 09:25] LABS: Glucose,Whole Blood 219 mg/dL (75-99)
[2020-11-28 10:12] LABS: Glucose,Whole Blood 298 mg/dL (75-99)
[2020-11-28] MEDS: INSULIN REGULAR 100 UNIT in SODIUM CHLORIDE 0.9% 100 ML IV SCH (10:18)
[2020-11-28 11:04] LABS: Glucose,Whole Blood 298 mg/dL (75-99)
[2020-11-28 11:19] VITALS: BMI 20.3
[2020-11-28] MEDS ORDERED: SENNOSIDES-DOCUSATE SODIUM 1 EACH TAB PO PRN (11:19)
[2020-11-28 11:22] VITALS: BP 116/66; PULSE 73; RESP 16; TEMP 97.9
[2020-11-28] MEDS ORDERED: ACETAMINOPHEN TAB 325 MG TAB PO PRN (11:23)
--- NOTE | 2020-11-28 11:25 | P.PN ---
Subjective Progress Note Date: 11/28/20 HISTORY OF PRESENT ILLNESS This is a 70-year-old female patient with history of diabetes mellitus type 1, presented to ED with EMS with complaint of hyperglycemia; patient reports that some changes have been made in her insulin by her primary field cane scaler helper; patient reports since those changes were made about 2 months ago, blood sugars have been uncontrolled; reports she has been taking her insulin as instructed. Patient reports that for the past couple days her blood sugars have been staying very high and staying in 600s despite use of high-dose insulin; patient does give history of nausea and vomiting and increased urination Blood work completed in ED reveals a WBC of 6.7, hemoglobin 11.2, platelet count of 220, sodium 136, potassium 3.5, BUN/creatinine of 41/1.09; serum acetones are positive Patient was given IV fluid resuscitation in ED and is admitted for further treatment and evaluation 11/28: Patient's blood sugars this morning 298 and running between 213 and 270. Patient remains on insulin drip and plan will be to change her to Toujeo at 12 units at bedtime, discontinue insulin drip and place patient on Humalog 12 units with meals. Patient's been afebrile, heart rate 74, blood pressure 125/76, pulse ox 94% on room air. Repeat blood work reveals WBC 5.2, hemoglobin 10, platelet count 178. Sodium 135, potassium 4.6, chloride 105, CO2 26, BUN 38 and creatinine 1.1. Diet will be changed to consistent carb. Anticipate discharge home tomorrow. REVIEW OF SYSTEMS Constitutional: No fever, no chills, no night sweats. No weight change. No weakness, fatigue or lethargy. No daytime sleepiness. EENT: No headache. No blurred vision or double vision, no loss of vision. No loss of Hearing, no ringing in the ears, no dizziness. No nasal drainage or congestion. No epistaxis. No sore throat. Lungs: No shortness of breath, cough, no sputum production. No wheezing. Cardiovascular: No chest pain, no lower extremity edema. No palpitations. No paroxysmal nocturnal dyspnea. No orthopnea. No lightheadedness or dizziness. No syncopal episodes. Abdominal: No abdominal pain. No nausea, vomiting. No diarrhea. No constipation. No bloody or tarry stools.. No loss of appetite. Genitourinary: No dysuria, increased frequency, urgency. No urinary retention. Musculoskeletal: No myalgias. No muscle weakness, no gait dysfunction, no frequent falls. No back pain. No neck pain. Integumentary: No wounds, no lesions. No rash or pruritus. No unusual bruising. No change in hair or nails. Neurologic: No aphasia. No facial droop. No change in mentation. No head injury. No headache. No paralysis. No paresthesia. Psychiatric: No depression. No anxiety. No mood swings. Endocrine: Noted abnormal blood sugars. No weight change. PHYSICAL EXAMINATION General: 70-year-old -[place] female sitting up in bed in no distress HEENT: Head is atraumatic, normocephalic, pupils were equal round reactive to light and recommendation, extraocular muscle movement were intact, sclera nonicteric, conjunctivae were pale, mucous membranes of the mouth are somewhat dry. Neck: Supple, no JVP, normal carotid upstroke bilaterally, no lymphadenopathy. Chest: Decreased breath sounds at the bases, few rhonchi, no extremity wheezes, no chest wall tenderness, no intercostal retractions. Heart: First heart sound is normal, second heart sounds normal there is systolic ejection murmur 2/6 located in the left sternal border. Abdomen: Soft, nontender, nondistended, positive bowel sounds. Extremities: There is no edema no calf tenderness DP +1 bilaterally. Neurologic examination: Patient is awake alert and oriented x3, cranial nerves II-12 appear grossly intact, muscle power was not done due to pain in the right hip. ASSESSMENT AND PLAN 1. Diabetic ketoacidosis. Patient is on insulin drip which will be transitioned to Toujeo 12 units at bedtime, Humalog 12 units with meals. Range diet to consistent carb. Discontinue IV fluids. 2. History of uncontrolled diabetes mellitus type 1. Continue as in #1. She is under the care of Dr. Keiko Saldaña from endocrinology . 3. History of CAD post-PCI. Continue patient on aspirin 81 g once every day, carvedilol 12.5 minute gram orally twice every day, losartan 50 mg orally twice every day, Crestor 10 mg orally once every day. 4. History of hypertension and hypertensive cardio vascular disease. Continue Coreg 12.5 mg orally twice every day, lisinopril 20 mg twice daily, continue hydralazine 50 mg orally 3 times every day. 5. Hyperlipidemia. Continue low-cholesterol diet, patient is off Crestor. 6. History of constipation. Continue with current bowel care. 7. History of narcolepsy. Patient was not able to tolerate medications. 8. PAD. Patient is not currently on aspirin and Crestor. 9. Diabetic polyneuropathy. Patient is intolerant of gabapentin. 10. Vitamin D deficiency. 11. History of DVT of the left lower extremity. Resolved. 11. Osteoarthritis. Continue Tylenol, avoid anti-inflammatory medication. 12. COVID-19 testing negative. Patient has been hospitalized during a pandemic. DISCHARGE PLAN Home on Saturday. Impression and plan of care have been directed as dictated by the signing physician. Faith Camarillo nurse practitioner acting as scribe for signing physician. Objective - Vital Signs Vital signs: Vital Signs Temp 98.2 F 11/28/20 04:00 Pulse 74 11/28/20 04:00 Resp 16 11/28/20 04:00 BP 125/76 11/28/20 04:00 Pulse Ox 96 11/28/20 04:00 Intake & Output 11/27/20 11/28/20 11/28/20 18:59 06:59 18:59 Intake Total 282.674 5.133 Balance 282.674 5.133 Weight 60.8 kg Intake: Intake, IV Titration 42.674 5.133 Amount Insulin Regular 100 unit 42.674 5.133 In Sodium Chloride 0.9% 100 ml @ 0.1 UNITS/KG/HR 6.276 mls/hr IV .Q16H6M [facility] Rx#:[id number] Oral 240 Other: # Voids 1 - Labs CBC & Chem 7: 11/28/20 07:11 11/28/20 07:11 Labs: Abnormal Lab Results - Last 24 Hours (Table) 11/27/20 11/27/20 11/27/20 Range/Units 09:19 11:38 13:08 Sodium (137-145) mmol/L BUN (7-17) mg/dL Creatinine (0.52-1.04) mg/dL Glucose (74-99) mg/dL POC Glucose (mg/dL) 489 H 387 H 340 H (75-99) mg/dL 11/27/20 11/27/20 11/27/20 Range/Units 14:16 15:32 16:53 Sodium 136 L (137-145) mmol/L BUN 41 H (7-17) mg/dL Creatinine 1.09 H (0.52-1.04) mg/dL Glucose 144 H (74-99) mg/dL POC Glucose (mg/dL) 299 H 219 H (75-99) mg/dL 11/27/20 11/27/20 11/27/20 Range/Units 16:56 17:58 19:05 Sodium (137-145) mmol/L BUN (7-17) mg/dL Creatinine (0.52-1.04) mg/dL Glucose (74-99) mg/dL POC Glucose (mg/dL) 149 H 123 H 105 H (75-99) mg/dL 11/27/20 11/27/20 11/27/20 Range/Units 19:45 20:13 21:05 Sodium 132 L (137-145) mmol/L BUN 41 H (7-17) mg/dL Creatinine (0.52-1.04) mg/dL Glucose 118 H (74-99) mg/dL POC Glucose (mg/dL) 132 H 188 H (75-99) mg/dL 11/27/20 11/27/20 11/28/20 Range/Units 23:01 23:58 01:16 Sodium (137-145) mmol/L BUN (7-17) mg/dL Creatinine (0.52-1.04) mg/dL Glucose (74-99) mg/dL POC Glucose (mg/dL) 191 H 210 H 182 H (75-99) mg/dL 11/28/20 11/28/20 11/28/20 Range/Units 02:04 03:04 04:48 Sodium (137-145) mmol/L BUN (7-17) mg/dL Creatinine (0.52-1.04) mg/dL Glucose (74-99) mg/dL POC Glucose (mg/dL) 166 H 196 H 192 H (75-99) mg/dL 11/28/20 11/28/20 Range/Units 05:51 07:03 Sodium (137-145) mmol/L BUN (7-17) mg/dL Creatinine (0.52-1.04) mg/dL Glucose (74-99) mg/dL POC Glucose (mg/dL) 221 H 270 H (75-99) mg/dL
[2020-11-28] MEDS ORDERED: SODIUM CHLORIDE 0.9% 1,000 ML IV SCH (11:30)
[2020-11-28 12:17] LABS: Glucose,Whole Blood 213 mg/dL (75-99)
[2020-11-28 13:15] LABS: Glucose,Whole Blood 187 mg/dL (75-99)
[2020-11-28 14:13] LABS: Glucose,Whole Blood 179 mg/dL (75-99)
--- NOTE | 2020-11-28 15:07 | P.DS ---
Providers Date of admission: 11/27/20 11:48 Expected date of discharge: 11/28/20 Attending physician: Mary Heath Primary care physician: Mary Heath Hospital Course: HISTORY OF PRESENT ILLNESS This is a 70-year-old female patient with history of diabetes mellitus type 1, presented to ED with EMS with complaint of hyperglycemia; patient reports that some changes have been made in her insulin by her primary report clerk; patient reports since those changes were made about 2 months ago, blood sugars have been uncontrolled; reports she has been taking her insulin as instructed. Patient reports that for the past couple days her blood sugars have been staying very high and staying in 600s despite use of high-dose insulin; patient does give history of nausea and vomiting and increased urination Blood work completed in ED reveals a WBC of 6.7, hemoglobin 11.2, platelet count of 220, sodium 136, potassium 3.5, BUN/creatinine of 41/1.09; serum acetones are positive Patient was given IV fluid resuscitation in ED and is admitted for further treatment and evaluation 11/28: Patient's blood sugars this morning 298 and running between 213 and 270. Patient remains on insulin drip and plan will be to change her to Toujeo at 12 units at bedtime, discontinue insulin drip and place patient on Humalog 12 units with meals. Patient's been afebrile, heart rate 74, blood pressure 125/76, pulse ox 94% on room air. Repeat blood work reveals WBC 5.2, hemoglobin 10, platelet count 178. Sodium 135, potassium 4.6, chloride 105, CO2 26, BUN 38 and creatinine 1.1. Diet will be changed to consistent carb. Anticipate discharge home tomorrow. Patient is adamant that she is going home today. Her last blood sugar was 179. Patient will be discharged home today in stable condition. She has been instructed to make sure that she takes Toujeo tonight. DISCHARGE DIAGNOSES 1. Diabetic ketoacidosis. 2. History of uncontrolled diabetes mellitus type 1. 3. History of CAD post-PCI. 4. History of hypertension and hypertensive cardiovascular disease. 5. Hyperlipidemia. 6. History of constipation. 7. History of narcolepsy. 8. PAD. 9. Diabetic polyneuropathy. 10. Vitamin D deficiency. 11. History of DVT of the left lower extremity. 11. Osteoarthritis, generalized. 12. COVID-19 testing negative. DISCHARGE PLAN Home with [facility]. Greater than 35 minutes utilized in discharge process for this patient. Impression and plan of care have been directed as dictated by the signing physician. Faith Camarillo nurse practitioner acting as scribe for signing physician. Patient Condition at Discharge: Stable Plan - Discharge Summary Discharge Rx Participant: Yes New Discharge Prescriptions: New Sennosides-Docusate Sodium [Senokot-S] 2 each PO DAILY PRN tab PRN Reason: Constipation Insulin Glargine,Hum.rec.anlog [Toujeo Solostar] 12 units SQ DAILY #1 each Continue hydrALAZINE HCL [Apresoline] 50 mg PO TID Carvedilol [Coreg] 12.5 mg PO BID lisinopriL 20 mg PO BID Changed Insulin Lispro [humaLOG Kwikpen] 12 unit SQ AC-TID #0 Discharge Medication List Carvedilol [Coreg] 12.5 mg PO BID 04/15/20 [History] hydrALAZINE HCL [Apresoline] 50 mg PO TID 04/15/20 [History] lisinopriL 20 mg PO BID 11/27/20 [History] Insulin Glargine,Hum.rec.anlog [Toujeo Solostar] 12 units SQ DAILY #1 each 11/28/20 [Rx] Insulin Lispro [humaLOG Kwikpen] 12 unit SQ AC-TID #0 11/28/20 [Rx] Sennosides-Docusate Sodium [Senokot-S] 2 each PO DAILY PRN tab 11/28/20 [Rx] Follow up Appointment(s)/Referral(s): [facility], [REFERRING] - Mary Heath MD [Primary Care Provider] - 1 Week Srikanth Saldaña MD [REFERRING] - 1 Week Discharge Disposition: HOME WITH HOME HEALTH SERVICES
[2020-11-28 15:17] LABS: Glucose,Whole Blood 120 mg/dL (75-99)
[2020-11-28] MEDS ORDERED: INSULIN GLARGINE SQ SCH (21:00)
[2020-11-29] MEDS ORDERED: INSULIN ASPART (NovoLOG) 100 UNIT/ML VIAL SQ SCH (07:30)
[2020-11-29] MEDS ORDERED: FAMOTIDINE 20 MG TAB PO SCH (09:00)
--- NOTE | 2021-01-03 12:50 | ED ---
General Adult HPI - General Chief complaint: Recheck/Abnormal Lab/Rx Stated complaint: HyperGlycemia Time Seen by Provider: 11/27/20 02:27 Source: patient, EMS Mode of arrival: EMS Limitations: no limitations - History of Present Illness Initial comments: This patient is a 70-year-old woman, with history of diabetes, arriving to be evaluated for elevated blood sugar. The readings were high at home. Patient did reportedly have polyuria. Patient denies abdominal pain, nausea or vomiting. Onset/Timin -: days(s) Severity scale (1-10): 0 Improves with: none Worsens with: none Associated Symptoms: denies other symptoms Treatments Prior to Arrival: none - Related Data Home Medications Medication Instructions Recorded Confirmed Carvedilol [Coreg] 12.5 mg PO BID 04/15/20 11/30/20 Sennosides-Docusate Sodium 2 tab PO DAILY PRN 11/30/20 11/30/20 [Senokot-S] Previous Rx's Medication Instructions Recorded Insulin Lispro [humaLOG Kwikpen] 12 unit SQ AC-TID #0 11/28/20 INSULIN ASPART (NovoLOG) [NovoLOG 0 unit SQ ACHS ml 12/03/20 (formulary)] Insulin Detemir (Levemir) [Levemir] 12 unit SQ HS #0 ml 12/03/20 hydrALAZINE HCL [Apresoline] 50 mg PO 1200 tab 12/03/20 hydrALAZINE HCL [Apresoline] 100 mg PO BID tab 12/03/20 lisinopriL [Zestril] 20 mg PO BID #60 tab 12/03/20 Allergies Allergy/AdvReac Type Severity Reaction Status Date / Time morphine AdvReac PASSES OUT Verified 11/30/20 11:48 nitroglycerin AdvReac PASSES OUT Verified 11/30/20 11:48 Sulfa (Sulfonamide AdvReac Itching Verified 11/30/20 11:48 Antibiotics) Review of Systems ROS Statement: Those systems with pertinent positive or pertinent negative responses have been documented in the HPI. ROS Other: All systems not noted in ROS Statement are negative. Constitutional: Denies: fever, chills, weakness Respiratory: Denies: cough, dyspnea Cardiovascular: Denies: chest pain, palpitations Gastrointestinal: Denies: abdominal pain, vomiting, diarrhea Genitourinary: Denies: dysuria, hematuria Musculoskeletal: Denies: back pain Past Medical History Past Medical History: Coronary Artery Disease (CAD), Diabetes Mellitus, Deep Vein Thrombosis (DVT), GERD/Reflux, Hyperlipidemia, Hypertension, Osteoarthritis (OA), Vascular Disorder Additional Past Medical History / Comment(s): IDDM type I with diabetic neuropathy, narcolepsy, DVTs L lower extremity, vertigo occasionally, low back pian with bilateral sciatica, PAD, pneumothorax when pt was in her 20s with chest tube, constipation, bronchitis. The patient also had a infection will COVID 19 on 06/28/2019 from which she recovered. History of Any Multi-Drug Resistant Organisms: None Reported Past Surgical History: Appendectomy, Cholecystectomy, Heart Catheterization With Stent, Hysterectomy, Tubal Ligation Additional Past Surgical History / Comment(s): PCI/stent, ectopic pregnancies with eventual total hysterectomy, EGD, colonoscopy, L breast biopsy-benign, bilateral carpal tunnel release, bilateral eyes laser surgery/lens. Past Anesthesia/Blood Transfusion Reactions: Previous Problems w/ Anesthesia, Postoperative Nausea & Vomiting (PONV) Additional Past Anesthesia/Blood Transfusion Reaction / Comment(s): PT STATES HER AND HER FAMILY HAVE DIFFICULTY WAKING UP Date of Last Stent Placement:: Past Psychological History: No Psychological Hx Reported Smoking Status: Never smoker Past Alcohol Use History: None Reported Past Drug Use History: None Reported - Past Family History Mother Family Medical History: Hypertension, Seizure Disorder Additional Family Medical History / Comment(s): Mother at age 75 Father Family Medical History: Renal Disease Additional Family Medical History / Comment(s): Father at age 58 from acute renal failure and he was an alcoholic. Son(s) Family Medical History: No Reported History Additional Family Medical History / Comment(s): Patient has 2 sons with no major medical problems. General Exam Limitations: no limitations General appearance: alert, in no apparent distress Head exam: Present: atraumatic, normocephalic Eye exam: Present: normal appearance. Absent: scleral icterus, conjunctival injection ENT exam: Present: mucous membranes dry Neck exam: Present: normal inspection Respiratory exam: Present: normal lung sounds bilaterally. Absent: respiratory distress, wheezes, rales, rhonchi, stridor Cardiovascular Exam: Present: regular rate, normal rhythm, normal heart sounds. Absent: systolic murmur, diastolic murmur, rubs, gallop GI/Abdominal exam: Present: soft. Absent: distended, tenderness, guarding, rebound, rigid, mass Extremities exam: Present: normal inspection, normal capillary refill. Absent: pedal edema, calf tenderness Back exam: Present: normal inspection Neurological exam: Present: alert Skin exam: Present: warm, dry, intact, normal color. Absent: rash Course Vital Signs 11/27/20 11/27/20 11/27/20 02:18 06:16 07:38 Temperature 97.8 F 98 F Pulse Rate 78 83 82 Respiratory 17 17 18 Rate Blood Pressure 189/98 163/83 182/93 O2 Sat by Pulse 99 98 97 Oximetry 11/27/20 11/27/20 10:40 13:06 Temperature 98 F 97.8 F Pulse Rate 72 67 Respiratory 18 16 Rate Blood Pressure 129/66 136/72 O2 Sat by Pulse 98 100 Oximetry Medical Decision Making - Medical Decision Making 70-year-old woman here for elevated blood sugars. Exam suggestive of mild dehydration and labs do show acute kidney injury. Insulin started as well as fluids and will admit for further treatment. - Lab Data Result diagrams: 11/28/20 07:11 11/28/20 07:11 Lab Results 11/27/20 11/27/20 11/27/20 Range/Units 02:25 02:36 02:36 WBC 6.7 (3.8-10.6) k/uL RBC 3.99 (3.80-5.40) m/uL Hgb 11.2 L (11.4-16.0) gm/dL Hct 34.8 (34.0-46.0) % MCV 87.3 (80.0-100.0) fL MCH 28.1 (25.0-35.0) pg MCHC 32.2 (31.0-37.0) g/dL RDW 16.1 H (11.5-15.5) % Plt Count 220 (150-450) k/uL MPV 9.4 Neutrophils % 73 % Lymphocytes % 18 % Monocytes % 6 % Eosinophils % 1 % Basophils % 0 % Neutrophils # 4.9 (1.3-7.7) k/uL Lymphocytes # 1.2 (1.0-4.8) k/uL Monocytes # 0.4 (0-1.0) k/uL Eosinophils # 0.0 (0-0.7) k/uL Basophils # 0.0 (0-0.2) k/uL Anisocytosis Slight Sodium 131 L (137-145) mmol/L Potassium 3.9 (3.5-5.1) mmol/L Chloride 96 L (98-107) mmol/L Carbon Dioxide 25 (22-30) mmol/L Anion Gap 10 mmol/L BUN 51 H (7-17) mg/dL Creatinine 1.48 H (0.52-1.04) mg/dL Est GFR (CKD-EPI)AfAm 41 (>60 ml/min/1.73 sqM) Est GFR (CKD-EPI)NonAf 35 (>60 ml/min/1.73 sqM) Glucose 466 H (74-99) mg/dL POC Glucose (mg/dL) 438 H (75-99) mg/dL POC Glu Winder Contort Operator ID Sharyn Castillo Calcium 9.4 (8.4-10.2) mg/dL Total Bilirubin 0.5 (0.2-1.3) mg/dL AST 23 (14-36) U/L ALT 16 (4-34) U/L Alkaline Phosphatase 130 H (38-126) U/L Total Protein 6.0 L (6.3-8.2) g/dL Albumin 3.5 (3.5-5.0) g/dL Acetone, Qual Positive (Negative) Coronavirus (PCR) (Not Detectd) 11/27/20 11/27/20 11/27/20 Range/Units 06:16 07:26 09:19 WBC (3.8-10.6) k/uL RBC (3.80-5.40) m/uL Hgb (11.4-16.0) gm/dL Hct (34.0-46.0) % MCV (80.0-100.0) fL MCH (25.0-35.0) pg MCHC (31.0-37.0) g/dL RDW (11.5-15.5) % Plt Count (150-450) k/uL MPV Neutrophils % % Lymphocytes % % Monocytes % % Eosinophils % % Basophils % % Neutrophils # (1.3-7.7) k/uL Lymphocytes # (1.0-4.8) k/uL Monocytes # (0-1.0) k/uL Eosinophils # (0-0.7) k/uL Basophils # (0-0.2) k/uL Anisocytosis Sodium (137-145) mmol/L Potassium (3.5-5.1) mmol/L Chloride (98-107) mmol/L Carbon Dioxide (22-30) mmol/L Anion Gap mmol/L BUN (7-17) mg/dL Creatinine (0.52-1.04) mg/dL Est GFR (CKD-EPI)AfAm (>60 ml/min/1.73 sqM) Est GFR (CKD-EPI)NonAf (>60 ml/min/1.73 sqM) Glucose (74-99) mg/dL POC Glucose (mg/dL) 461 H 489 H (75-99) mg/dL POC Glu Winder Contort Operator ANGEL Stacey Adler Shelly Calcium (8.4-10.2) mg/dL Total Bilirubin (0.2-1.3) mg/dL AST (14-36) U/L ALT (4-34) U/L Alkaline Phosphatase (38-126) U/L Total Protein (6.3-8.2) g/dL Albumin (3.5-5.0) g/dL Acetone, Qual (Negative) Coronavirus (PCR) Not Detected (Not Detectd) 11/27/20 Range/Units 11:38 WBC (3.8-10.6) k/uL RBC (3.80-5.40) m/uL Hgb (11.4-16.0) gm/dL Hct (34.0-46.0) % MCV (80.0-100.0) fL MCH (25.0-35.0) pg MCHC (31.0-37.0) g/dL RDW (11.5-15.5) % Plt Count (150-450) k/uL MPV Neutrophils % % Lymphocytes % % Monocytes % % Eosinophils % % Basophils % % Neutrophils # (1.3-7.7) k/uL Lymphocytes # (1.0-4.8) k/uL Monocytes # (0-1.0) k/uL Eosinophils # (0-0.7) k/uL Basophils # (0-0.2) k/uL Anisocytosis Sodium (137-145) mmol/L Potassium (3.5-5.1) mmol/L Chloride (98-107) mmol/L Carbon Dioxide (22-30) mmol/L Anion Gap mmol/L BUN (7-17) mg/dL Creatinine (0.52-1.04) mg/dL Est GFR (CKD-EPI)AfAm (>60 ml/min/1.73 sqM) Est GFR (CKD-EPI)NonAf (>60 ml/min/1.73 sqM) Glucose (74-99) mg/dL POC Glucose (mg/dL) 387 H (75-99) mg/dL POC Glu Winder Contort Operator ID Masood Connors Calcium (8.4-10.2) mg/dL Total Bilirubin (0.2-1.3) mg/dL AST (14-36) U/L ALT (4-34) U/L Alkaline Phosphatase (38-126) U/L Total Protein (6.3-8.2) g/dL Albumin (3.5-5.0) g/dL Acetone, Qual (Negative) Coronavirus (PCR) (Not Detectd) Disposition Clinical Impression: Dehydration, Acute kidney injury, Hyperglycemia Disposition: ADMITTED IP TO THIS HOSP Condition: Stable Is patient prescribed a controlled substance at d/c from ED?: No
== END 2020-11-28 16:46 | disposition home health service (06) | DRG 638 ==
LOC: EC 02:17 → 6NMEDSUR 05:47 → OBSVTOIN 11:48 → 3SCARD 11:49
PROVIDERS: ADMIT Internal Medicine; ATTEND Internal Medicine
DX: E10.10 Type 1 diabetes mellitus with ketoacidosis without coma (principal); N17.9 Acute kidney failure, unspecified; E10.42 Type 1 diabetes mellitus with diabetic polyneuropathy; E55.9 Vitamin D deficiency, unspecified; E78.5 Hyperlipidemia, unspecified; E86.0 Dehydration; I25.10 Atherosclerotic heart disease of native coronary artery without angina pectoris; I11.9 Hypertensive heart disease without heart failure; M19.90 Unspecified osteoarthritis, unspecified site; Z20.822 Contact with and (suspected) exposure to COVID-19; Z79.4 Long term (current) use of insulin; Z79.899 Other long term (current) drug therapy; Z82.0 Family history of epilepsy and other diseases of the nervous system; Z82.49 Family history of ischemic heart disease and other diseases of the circulatory system; Z86.718 Personal history of other venous thrombosis and embolism; Z90.710 Acquired absence of both cervix and uterus; G47.419 Narcolepsy without cataplexy
CPT/HCPCS: 36415; 80048; 80051; 80053; 82009; 82565; 82947; 84100; 84520; 85025; 87635; 93005; 96360; 96361; 99285

== ENCOUNTER 2020-11-30 11:16 | Inpatient (IN) | payer MEDICARE, OTHER ==
[2020-11-30 11:21] LABS: Glucose,Whole Blood >600 mg/dL (75-99)
[2020-11-30] MEDS ORDERED: SODIUM CHLORIDE 0.9% 1,000 ML IV STA ×2 (11:24)
--- NOTE | 2020-11-30 11:26 | ED ---
General Adult HPI - General Chief complaint: Recheck/Abnormal Lab/Rx Stated complaint: High Blood Sugar Time Seen by Provider: 11/30/20 11:17 Source: EMS Mode of arrival: EMS Limitations: no limitations - History of Present Illness Initial comments: Dictation was produced using [employer] dictation software. please excuse any grammatical, word or spelling errors. Chief Complaint: 70-year-old insulin-dependent diabetic presents for chief complaint of weakness History of Present Illness: Is a 70-year-old. She is brought in by EMS. EMS was called by patient's granddaughter. Patient was discharged discharge from her hospital 2 days ago. She was admitted to the hospital for DKA. She was admitted for 2 days. EMS reports that patient has low blood pressure with systolic measured in the 80s. She was hyperglycemic with measurements reading greater than 600. Patient denies any pain. EMS provided patient with 1500 mL of normal saline. The ROS documented in this emergency department record has been reviewed and confirmed by me. Those systems with pertinent positive or negative responses have been documented in the HPI. All other systems are other negative and/or noncontributory. PHYSICAL EXAM: General Impression: Alert and oriented x3, not in acute distress HEENT: Normocephalic atraumatic, extra-ocular movements intact, pupils equal and reactive to light bilaterally, dry mucous membranes Cardiovascular: Heart regular rate and rhythm Chest: Able to complete full sentences, no retractions, no tachypnea Abdomen: abdomen soft, non-tender, non-distended, no organomegaly Musculoskeletal: Pulses present and equal in all extremities, no peripheral edema Motor: no focal deficits noted Neurological: CN II-XII grossly intact, no focal motor or sensory deficits noted Skin: Intact with no visualized rashes Psych: Normal affect and mood ED course: 80-year-old female presents with clinical presentation consistent wi th DKA dehydration. She was just recently admitted to the hospital 2 days ago for the same issue. Vital signs upon arrival shows blood pressure 81/43, rest of vital signs within acceptable limits. EKG interpretation: Ventricular rate 72, normal sinus rhythm,. Interval 150, QRS 16, QTC 492. No TX prolongation, no QTC prolongation, no ST or T-wave changes noted. EKG compared to 11/27/2020 showing no changes. Overall, this EKG is unremarkable Laboratory evaluation obtained. CBC unremarkable. Coag panel is negative. Venous blood gas shows pH is 7.1 with a bicarb of 7 and a pCO2 of 20. Metabolic panel shows sodium 129, potassium 6.2, bicarb of 5. Elevated renal markers with a creatinine of 2.11. Glucose 75. Urinalysis shows 4+ glucose and 1+ ketones. Acetone positive. Patient was initially well-appearing and after having been given multiple boluses of fluid she still remained hypotensive. She also seemed a little bit more altered. Patient was sent to CT scanner for computed tomography scan of brain and CT chest abdomen pelvis. Computed tomography scan of the brain is unremarkable. CT chest abdomen pelvis is limited due to lack of contrast but no obvious abnormalities noted. There does appear to be some air in the soft tissues in the right chest likely from IV administration. There is cardiomegaly. Central venous catheter was placed in the right groin under ultrasound guidance. Patient started on peripheral pressors. Patient will be admitted to intensive care unit. Stat echo pending for concerns of heart failure.Case discussed with Dr. ortega who is willing to accept patients care. Patient be admitted to ICU. Case discussed it with Dr. Causey. - Related Data Home Medications Medication Instructions Recorded Confirmed Carvedilol [Coreg] 12.5 mg PO BID 04/15/20 11/30/20 hydrALAZINE HCL [Apresoline] 50 mg PO TID 04/15/20 11/30/20 lisinopriL 20 mg PO BID 11/27/20 11/30/20 Sennosides-Docusate Sodium 2 tab PO DAILY PRN 11/30/20 11/30/20 [Senokot-S] Previous Rx's Medication Instructions Recorded Insulin Lispro [humaLOG Kwikpen] 12 unit SQ AC-TID #0 11/28/20 Allergies Allergy/AdvReac Type Severity Reaction Status Date / Time morphine AdvReac PASSES OUT Verified 11/30/20 11:48 nitroglycerin AdvReac PASSES OUT Verified 11/30/20 11:48 Sulfa (Sulfonamide AdvReac Itching Verified 11/30/20 11:48 Antibiotics) Review of Systems ROS Statement: Those systems with pertinent positive or pertinent negative responses have been documented in the HPI. ROS Other: All systems not noted in ROS Statement are negative. Past Medical History Past Medical History: Coronary Artery Disease (CAD), Diabetes Mellitus, Deep Vein Thrombosis (DVT), GERD/Reflux, Hyperlipidemia, Hypertension, Osteoarthritis (OA), Vascular Disorder Additional Past Medical History / Comment(s): IDDM type I with diabetic neuropathy, narcolepsy, DVTs L lower extremity, vertigo occasionally, low back pian with bilateral sciatica, PAD, pneumothorax when pt was in her 20s with chest tube, constipation, bronchitis. The patient also had a infection will COVID 19 on 06/28/2019 from which she recovered. History of Any Multi-Drug Resistant Organisms: None Reported Past Surgical History: Appendectomy, Cholecystectomy, Heart Catheterization With Stent, Hysterectomy, Tubal Ligation Additional Past Surgical History / Comment(s): PCI/stent, ectopic pregnancies with eventual total hysterectomy, EGD, colonoscopy, L breast biopsy-benign, bilateral carpal tunnel release, bilateral eyes laser surgery/lens. Past Anesthesia/Blood Transfusion Reactions: Previous Problems w/ Anesthesia, Postoperative Nausea & Vomiting (PONV) Additional Past Anesthesia/Blood Transfusion Reaction / Comment(s): PT STATES HER AND HER FAMILY HAVE DIFFICULTY WAKING UP Date of Last Stent Placement:: Past Psychological History: No Psychological Hx Reported Smoking Status: Never smoker Past Alcohol Use History: None Reported Past Drug Use History: None Reported - Past Family History Mother Family Medical History: Hypertension, Seizure Disorder Additional Family Medical History / Comment(s): Mother at age 75 Father Family Medical History: Renal Disease Additional Family Medical History / Comment(s): Father at age 58 from acute renal failure and he was an alcoholic. Son(s) Family Medical History: No Reported History Additional Family Medical History / Comment(s): Patient has 2 sons with no major medical problems. General Exam Limitations: no limitations Course Vital Signs 11/30/20 11/30/20 11/30/20 11:18 12:15 12:45 Temperature 97.3 F L Pulse Rate 71 72 72 Respiratory 19 18 18 Rate Blood Pressure 81/43 79/45 75/49 O2 Sat by Pulse 100 100 100 Oximetry 11/30/20 11/30/20 13:00 14:00 Temperature Pulse Rate 63 63 Respiratory 18 18 Rate Blood Pressure 68/42 68/43 O2 Sat by Pulse 100 99 Oximetry Procedures - Central Line Placement Right Femoral Consent Obtained: verbal consent Patient Placed on Monitor/Pulse Ox: Yes MD Prep: mask, gown, gloves Central Line Prep: Chlorhexidine scrub Local Anesthesia Used: Lidocaine 1%, with Epi Ultrasound Used for Placement: Yes Central Line Lumen Inserted: triple Bloods Obtained for Lab: No Central Line Position: good blood return, all ports aspirated, flushed, capped, sutured in place with 3-0 nylon Dressing Applied: Tegaderm Post Procedure X-Ray: tip of catheter in good position Patient Tolerated Procedure: well Complications: none Medical Decision Making - Lab Data Result diagrams: 11/30/20 11:32 11/30/20 11:31 Lab Results 11/30/20 11/30/20 11/30/20 Range/Units 11:19 11:31 11:31 WBC (3.8-10.6) k/uL RBC (3.80-5.40) m/uL Hgb (11.4-16.0) gm/dL Hct (34.0-46.0) % MCV (80.0-100.0) fL MCH (25.0-35.0) pg MCHC (31.0-37.0) g/dL RDW (11.5-15.5) % Plt Count (150-450) k/uL MPV Neutrophils % % Lymphocytes % % Monocytes % % Eosinophils % % Basophils % % Neutrophils # (1.3-7.7) k/uL Lymphocytes # (1.0-4.8) k/uL Monocytes # (0-1.0) k/uL Eosinophils # (0-0.7) k/uL Basophils # (0-0.2) k/uL Hypochromasia PT 10.7 (9.0-12.0) sec INR 1.0 (<1.2) APTT 21.4 L (22.0-30.0) sec VBG pH (7.31-7.41) VBG pCO2 (37-51) mmHg VBG HCO3 (24-28) mmol/L Sodium 129 L (137-145) mmol/L Potassium 6.2 H* (3.5-5.1) mmol/L Chloride 98 (98-107) mmol/L Carbon Dioxide 5 L* (22-30) mmol/L Anion Gap 26 mmol/L BUN 46 H (7-17) mg/dL Creatinine 2.11 H (0.52-1.04) mg/dL Est GFR (CKD-EPI)AfAm 26 (>60 ml/min/1.73 sqM) Est GFR (CKD-EPI)NonAf 23 (>60 ml/min/1.73 sqM) Glucose 785 H* (74-99) mg/dL POC Glucose (mg/dL) >600 H (75-99) mg/dL POC Glu Cardiology Clinical Nurse Specialist ID Jeffry Russell Calcium 8.8 (8.4-10.2) mg/dL Magnesium 2.2 (1.6-2.3) mg/dL Total Bilirubin 0.6 (0.2-1.3) mg/dL AST 26 (14-36) U/L ALT 17 (4-34) U/L Alkaline Phosphatase 100 (38-126) U/L Troponin I (0.000-0.034) ng/mL Total Protein 5.5 L (6.3-8.2) g/dL Albumin 3.2 L (3.5-5.0) g/dL Urine Color Urine Appearance (Clear) Urine pH (5.0-8.0) Ur Specific [place] (1.001-1.035) Urine Protein (Negative) Urine Glucose (UA) (Negative) Urine Ketones (Negative) Urine Blood (Negative) Urine Nitrite (Negative) Urine Bilirubin (Negative) Urine Urobilinogen (<2.0) mg/dL Ur Leukocyte Esterase (Negative) Acetone, Qual Positive (Negative) 11/30/20 11/30/20 11/30/20 Range/Units 11:31 11:32 13:33 WBC 4.2 (3.8-10.6) k/uL RBC 4.09 (3.80-5.40) m/uL Hgb 11.3 L (11.4-16.0) gm/dL Hct 39.9 (34.0-46.0) % MCV 97.5 D (80.0-100.0) fL MCH 27.5 (25.0-35.0) pg MCHC 28.2 L (31.0-37.0) g/dL RDW 15.8 H (11.5-15.5) % Plt Count 193 (150-450) k/uL MPV 10.4 Neutrophils % 88 % Lymphocytes % 9 % Monocytes % 2 % Eosinophils % 1 % Basophils % 0 % Neutrophils # 3.7 (1.3-7.7) k/uL Lymphocytes # 0.4 L (1.0-4.8) k/uL Monocytes # 0.1 (0-1.0) k/uL Eosinophils # 0.0 (0-0.7) k/uL Basophils # 0.0 (0-0.2) k/uL Hypochromasia Marked PT (9.0-12.0) sec INR (<1.2) APTT (22.0-30.0) sec VBG pH 7.16 L* (7.31-7.41) VBG pCO2 20 L (37-51) mmHg VBG HCO3 7 L* (24-28) mmol/L Sodium (137-145) mmol/L Potassium (3.5-5.1) mmol/L Chloride (98-107) mmol/L Carbon Dioxide (22-30) mmol/L Anion Gap mmol/L BUN (7-17) mg/dL Creatinine (0.52-1.04) mg/dL Est GFR (CKD-EPI)AfAm (>60 ml/min/1.73 sqM) Est GFR (CKD-EPI)NonAf (>60 ml/min/1.73 sqM) Glucose (74-99) mg/dL POC Glucose (mg/dL) (75-99) mg/dL POC Glu Cardiology Clinical Nurse Specialist ID Calcium (8.4-10.2) mg/dL Magnesium (1.6-2.3) mg/dL Total Bilirubin (0.2-1.3) mg/dL AST (14-36) U/L ALT (4-34) U/L Alkaline Phosphatase (38-126) U/L Troponin I (0.000-0.034) ng/mL Total Protein (6.3-8.2) g/dL Albumin (3.5-5.0) g/dL Urine Color Yellow Urine Appearance Clear (Clear) Urine pH 5.0 (5.0-8.0) Ur Specific [place] 1.019 (1.001-1.035) Urine Protein Trace H (Negative) Urine Glucose (UA) 4+ H (Negative) Urine Ketones 1+ H (Negative) Urine Blood Negative (Negative) Urine Nitrite Negative (Negative) Urine Bilirubin Negative (Negative) Urine Urobilinogen <2.0 (<2.0) mg/dL Ur Leukocyte Esterase Negative (Negative) Acetone, Qual (Negative) 11/30/20 Range/Units 13:54 WBC (3.8-10.6) k/uL RBC (3.80-5.40) m/uL Hgb (11.4-16.0) gm/dL Hct (34.0-46.0) % MCV (80.0-100.0) fL MCH (25.0-35.0) pg MCHC (31.0-37.0) g/dL RDW (11.5-15.5) % Plt Count (150-450) k/uL MPV Neutrophils % % Lymphocytes % % Monocytes % % Eosinophils % % Basophils % % Neutrophils # (1.3-7.7) k/uL Lymphocytes # (1.0-4.8) k/uL Monocytes # (0-1.0) k/uL Eosinophils # (0-0.7) k/uL Basophils # (0-0.2) k/uL Hypochromasia PT (9.0-12.0) sec INR (<1.2) APTT (22.0-30.0) sec VBG pH (7.31-7.41) VBG pCO2 (37-51) mmHg VBG HCO3 (24-28) mmol/L Sodium (137-145) mmol/L Potassium (3.5-5.1) mmol/L Chloride (98-107) mmol/L Carbon Dioxide (22-30) mmol/L Anion Gap mmol/L BUN (7-17) mg/dL Creatinine (0.52-1.04) mg/dL Est GFR (CKD-EPI)AfAm (>60 ml/min/1.73 sqM) Est GFR (CKD-EPI)NonAf (>60 ml/min/1.73 sqM) Glucose (74-99) mg/dL POC Glucose (mg/dL) (75-99) mg/dL POC Glu Cardiology Clinical Nurse Specialist ID Calcium (8.4-10.2) mg/dL Magnesium (1.6-2.3) mg/dL Total Bilirubin (0.2-1.3) mg/dL AST (14-36) U/L ALT (4-34) U/L Alkaline Phosphatase (38-126) U/L Troponin I 0.457 H* (0.000-0.034) ng/mL Total Protein (6.3-8.2) g/dL Albumin (3.5-5.0) g/dL Urine Color Urine Appearance (Clear) Urine pH (5.0-8.0) Ur Specific [place] (1.001-1.035) Urine Protein (Negative) Urine Glucose (UA) (Negative) Urine Ketones (Negative) Urine Blood (Negative) Urine Nitrite (Negative) Urine Bilirubin (Negative) Urine Urobilinogen (<2.0) mg/dL Ur Leukocyte Esterase (Negative) Acetone, Qual (Negative) Critical Care Time Critical Care Time: Yes Total Critical Care Time: 33 Disposition Clinical Impression: DKA (diabetic ketoacidosis) Disposition: ADMITTED IP TO THIS [facility] Condition: Critical Referrals: Mary Heath MD [Primary Care Provider] - 1-2 days
[2020-11-30] MEDS ORDERED: METOCLOPRAMIDE 5 MG/ML 2 ML VIAL IVP STA (11:40)
[2020-11-30 11:46] LABS: Basophils % (A) 0 %; Eosinophils % (A) 1 %; HCT 39.9 % (34.0-46.0); HGB 11.3 gm/dL (11.4-16.0); Hypochromasia Marked; Lymphocytes # (A) 0.4 k/uL (1.0-4.8); Lymphocytes % (A) 9 %; MCH 27.5 pg (25.0-35.0); MCHC 28.2 g/dL (31.0-37.0); Mean Platelet Volume 10.4; Monocytes # (A) 0.1 k/uL (0-1.0); Monocytes % (A) 2 %; Neutrophils # (A) 3.7 k/uL (1.3-7.7); Neutrophils % (A) 88 %; Platelet Count 193 k/uL (150-450); RBC 4.09 m/uL (3.80-5.40); RDW 15.8 % (11.5-15.5); WBC 4.2 k/uL (3.8-10.6)
[2020-11-30 11:55] LABS: ALT 17 U/L (4-34); AST 26 U/L (14-36); African American GFR (CKD) 26 (>60 ml/min/1.73 sqM); Albumin 3.2 g/dL (3.5-5.0); Alkaline Phosphatase 100 U/L (38-126); Anion Gap 26 mmol/L; Blood Urea Nitrogen 46 mg/dL (7-17); Calcium 8.8 mg/dL (8.4-10.2); Chloride 98 mmol/L (98-107); Magnesium 2.2 mg/dL (1.6-2.3); Non-African American GFR(CKD) 23 (>60 ml/min/1.73 sqM); Sodium 129 mmol/L (137-145); Total Bilirubin 0.6 mg/dL (0.2-1.3); Total Protein 5.5 g/dL (6.3-8.2)
[2020-11-30 12:06] LABS: VBG PH 7.16 (7.31-7.41)
[2020-11-30 12:07] LABS: MCV 97.5 fL (80.0-100.0)
[2020-11-30 12:07] LABS: Prothrombin Time 10.7 sec (9.0-12.0)
[2020-11-30] MEDS ORDERED: SODIUM CHLORIDE 0.9% 1,000 ML IV ONE (12:16)
[2020-11-30 12:23] LABS: Partial Thromboplastin Time 21.4 sec (22.0-30.0)
[2020-11-30 12:49] LABS: Carbon Dioxide 5 mmol/L (22-30); Potassium 6.2 mmol/L (3.5-5.1)
[2020-11-30 12:50] LABS: Glucose 785 mg/dL (74-99)
[2020-11-30] MEDS ORDERED: Potassium Replacement Protocol 1 EACH MISC MISCELLANE PRN (12:59)
[2020-11-30] MEDS ORDERED: INSULIN REGULAR BOLUS (FROM DRIP BAG) IV ONE (12:59)
[2020-11-30] MEDS ORDERED: Magnesium Replacement Protocol 1 EACH MISC MISCELLANE PRN (12:59)
[2020-11-30 13:42] LABS: Appearance,Urine Clear (Clear); Bilirubin,Urine Negative (Negative); Blood,Urine Negative (Negative); Color,Urine Yellow; Glucose,Urine (UA) 4+ (Negative); Ketones,Urine 1+ (Negative); Leukocyte Esterase,Urine Negative (Negative); Nitrite,Urine Negative (Negative); Protein,Urine Trace (Negative); Specific Gravity,Urine 1.019 (1.001-1.035); Urobilinogen,Urine <2.0 mg/dL (<2.0)
--- NOTE | 2020-11-30 14:17 | CT ---
EXAMINATION TYPE: CT brain wo con DATE OF EXAM: 11/30/2020 COMPARISON: None HISTORY: altered mental status CT DLP: [address] of the brain was performed. The ventricles, basal cisterns and sulci overlying the cerebral convexities demonstrate mild enlargem ent. There is no evidence for intracranial hemorrhage or sulcal effacement. There is decreased attenuation about the periventricular white matter and deep white matter of both c erebral hemispheres, compatible with chronic small vessel ischemia. Differential diagnosis does inclu de demyelination. No mass effects are seen.No midline shift. Osseous calvarium is intact. If symptoms persist consider MRI. IMPRESSION: 1. Age related atrophic and chronic small vessel ischemic change without acute intracranial process s een at this time.
[2020-11-30] MEDS ORDERED: NOREPINEPHRINE 32 MG in SODIUM CHLORIDE 0.9% 218 ML IV ONE (14:18)
[2020-11-30] MEDS ORDERED: NALOXONE 0.4 MG/ML 1 ML VIAL IV PRN (14:20)
[2020-11-30] MEDS ORDERED: SODIUM CHLORIDE 0.9% 3,000 ML IV ONE (14:33)
--- NOTE | 2020-11-30 14:34 | CT ---
EXAMINATION TYPE: CT ChestAbdPelvis wo con DATE OF EXAM: 11/30/2020 COMPARISON: [id number] HISTORY: altered mental status CT DLP: 726.9 mGycm. Automated Exposure Control for Dose Reduction was Utilized. TECHNIQUE: Exam is markedly limited due to artifact. CT scan of the thorax, abdomen and pelvis is performed without IV contrast. FINDINGS: LUNGS: Bilateral subsegmental areas of consolidation and pleural effusion.. MEDIASTINUM: Esophagus is distended with fluid. Lack of contrast severely limits the exam. Aorta of d emonstrates atherosclerotic change. Dense coronary artery calcification and there is cardiomegaly. OT HER: No additional significant abnormality is seen. Small amount of air anterior to that has a pneum opericardium 2 Abdomen and pelvis: There is severe limitation of the exam due to lack of contrast and artifact. LIVER/GB: Suspect gallstones.. PANCREAS: Nondiagnostic. SPLEEN: No significant abnormality is seen. ADRENALS: No significant abnormality is seen. KIDNEYS: No significant abnormality is seen. BOWEL: No significant abnormality is seen. LYMPH NODES: No greater than 1cm abdominal or pelvic lymph nodes are appreciated. OSSEOUS STRUCTURES: Hypertrophic and degenerative change of the spine. Postsurgical change right hip. Slight anterolisthesis L4 on L5. Multilevel facet arthropathy. OTHER: There is soft tissue edema throughout the soft tissues correlate for anasarca. Small amount of free fluid is seen in the pelvis. Question placement of a Wilson catheter. There is air in the subcut aneous tissues of the right chest possibly within the vein could not exclude a small amount of subcut aneous emphysema.. Cannot exclude some haziness in the peritoneal fat correlate for a peritonitis. IMPRESSION: Severely limited exam due to lack of IV contrast. 1. Air in the anterior soft tissues of the right chest may be intravenous correlate clinically to exc lude subcutaneous emphysema. Cannot exclude a small amount of air anterior to the heart possibly wit hin the pericardium. Case discussed with the ER physician. 2. Bilateral pleural effusions and basilar infiltrate. 3. Cardiomegaly and coronary artery calcification. 4. Severely limited assessment of the abdomen pelvis due to artifact. Bowel gas pattern grossly nonsp ecific. There is a small amount amount of free fluid in the pelvis and suggestion of a Wilson catheter placement correlate clinically to confirm. 5. Haziness to the peritoneal fat within the pelvis is nonspecific may be related to the small amount of free fluid. Correlate clinically to exclude peritonitis.
[2020-11-30] MEDS: SODIUM CHLORIDE 0.9% 1,000 ML IV SCH ×2 (14:35→18:08)
[2020-11-30] MEDS: INSULIN REGULAR 100 UNIT in SODIUM CHLORIDE 0.9% 100 ML IV SCH ×2 (14:44→22:34)
[2020-11-30 15:24] LABS: Glucose,Whole Blood >600 mg/dL (75-99)
[2020-11-30 15:54] LABS: Phosphorus 6.4 mg/dL (2.5-4.5); Potassium 5.4 mmol/L (3.5-5.1)
--- NOTE | 2020-11-30 15:55 | P.CNPUL ---
<Kiesha Santiago M - Last Filed: 11/30/20 15:29> History of Present Illness Consult date: 11/30/20 Requesting physician: Helio Yañez Reason for consult: other Chief complaint: Weakness History of present illness: This is a 70-year-old -[place] female patient with multiple comorbidities including coronary artery disease, previous PCI involving the PDA and RCA in addition to previous history of DVT of the lower extremity, diabetes mellitus type I, hypertension who was brought into the hospital on 11/30/2020 for chief complaint of weakness. Patient was brought into the hospital by EMS. Patient was recently hospitalized from 11/27/2020 through 11/28/2020 with hyperglycemia, borderline DKA. Patient was discharged home on 11/28/2020. Patient had a recent change in her treatment, and lately had uncontrolled blood sugars. EMS was alerted by the patient's granddaughter. Patient was found to have low blood pressure was systolic in the 80s and later blood sugar greater than 600 when the EMS arrived. Patient was given 1.5 L in fluid boluses by EMS. Patient's venous blood gas in the ER showed pH of 7.1 with a bicarb of 7 and pCO2 of 20. Serum sodium was 129, potassium is 6.2, bicarbonate concentration was 5. BUN was 46, creatinine was 2.11, glucose was 785, LFTs were within normal limits, urinalysis showed 4+ glucose and 1+ ketones, serum acetone was positive, CT showed white blood cell count of 4.2, hemoglobin of 11.3. Correlation profile was unremarkable. Patient was started on insulin infusion per DKA protocol, she was given additional fluid volume in the emergency department. Brain CT was completed in view of altered mental status and showed age-related atrophic and chronic small vessel ischemic changes without acute intracranial process. CT of the chest, abdomen and pelvis showed possibly a small amount of air anterior to the heart bilateral pleural effusions and bilat eral lateral basilar infiltrates, cardiomegaly, severely limited assessment of the abdomen, bowel gas pattern nonspecific, small amount of peritoneal fluid. EEG showed normal sinus rhythm. Patient remains hypotensive in the emergency department currently blood pressure is as low as 58/40, central line will be placed, so far she has received a total of 6 L and IV fluids. Norepinephrine has been started for blood pressure support. Her pulse ox is 99%, patient is afebrile. Repeat BMP is pending at this time, patient is awaiting admission to the intensive care unit Review of Systems All systems: negative Constitutional: Reports fatigue, Reports malaise, Reports weakness, Denies chills, Denies fever Eyes: denies blurred vision, denies pain Ears, nose, mouth and throat: Denies headache, Denies sore throat Cardiovascular: Denies chest pain, Denies shortness of breath Respiratory: Denies cough Gastrointestinal: Denies abdominal pain, Denies diarrhea, Denies nausea, Denies vomiting Genitourinary: Denies dysuria, Denies hematuria Musculoskeletal: Denies myalgias Integumentary: Denies pruritus, Denies rash Neurological: Denies numbness, Denies weakness Psychiatric: Denies anxiety, Denies depression Endocrine: Denies fatigue, Denies weight change Past Medical History Past Medical History: Coronary Artery Disease (CAD), Diabetes Mellitus, Deep Vein Thrombosis (DVT), GERD/Reflux, Hyperlipidemia, Hypertension, Osteoarthritis (OA), Vascular Disorder Additional Past Medical History / Comment(s): IDDM type I with diabetic neuropathy, narcolepsy, DVTs L lower extremity, vertigo occasionally, low back pian with bilateral sciatica, PAD, pneumothorax when pt was in her 20s with chest tube, constipation, bronchitis. The patient also had a infection will COVID 19 on 06/28/2019 from which she recovered. History of Any Multi-Drug Resistant Organisms: None Reported Past Surgical History: Appendectomy, Cholecystectomy, Heart Catheterization With Stent, Hysterectomy, Tubal Ligation Additional Past Surgical History / Comment(s): PCI/stent, ectopic pregnancies with eventual total hysterectomy, EGD, colonoscopy, L breast biopsy-benign, bilateral carpal tunnel release, bilateral eyes laser surgery/lens. Past Anesthesia/Blood Transfusion Reactions: Previous Problems w/ Anesthesia, Postoperative Nausea & Vomiting (PONV) Additional Past Anesthesia/Blood Transfusion Reaction / Comment(s): PT STATES HER AND HER FAMILY HAVE DIFFICULTY WAKING UP Date of Last Stent Placement:: Past Psychological History: No Psychological Hx Reported Smoking Status: Never smoker Past Alcohol Use History: None Reported Past Drug Use History: None Reported - Past Family History Mother Family Medical History: Hypertension, Seizure Disorder Additional Family Medical History / Comment(s): Mother at age 75 Father Family Medical History: Renal Disease Additional Family Medical History / Comment(s): Father at age 58 from acute renal failure and he was an alcoholic. Son(s) Family Medical History: No Reported History Additional Family Medical History / Comment(s): Patient has 2 sons with no major medical problems. Medications and Allergies Home Medications Medication Instructions Recorded Confirmed Type Carvedilol [Coreg] 12.5 mg PO BID 04/15/20 11/30/20 History hydrALAZINE HCL [Apresoline] 50 mg PO TID 04/15/20 11/30/20 History lisinopriL 20 mg PO BID 11/27/20 11/30/20 History Insulin Lispro [humaLOG Kwikpen] 12 unit SQ AC-TID #0 11/28/20 11/30/20 Rx Sennosides-Docusate Sodium 2 tab PO DAILY PRN 11/30/20 11/30/20 History [Senokot-S] Allergies Allergy/AdvReac Type Severity Reaction Status Date / Time morphine AdvReac PASSES OUT Verified 11/30/20 11:48 nitroglycerin AdvReac PASSES OUT Verified 11/30/20 11:48 Sulfa (Sulfonamide AdvReac Itching Verified 11/30/20 11:48 Antibiotics) Physical Exam Vitals: Vital Signs Temp Pulse Resp BP Pulse Ox 11/30/20 15:00 61 18 62/40 99 11/30/20 14:58 61 18 58/40 99 11/30/20 14:00 63 18 68/43 99 11/30/20 13:00 63 18 68/42 100 11/30/20 12:45 72 18 75/49 100 11/30/20 12:15 72 18 79/45 100 11/30/20 11:18 97.3 F L 71 19 81/43 100 Intake and Output 11/30/20 11/30/20 11/30/20 06:59 14:59 22:59 Intake Total 0.538 Balance 0.538 Intake: Intake, IV Titration 0.538 Amount Norepinephrine 32 mg In 0.538 Sodium Chloride 0.9% 218 ml @ 0.05 MCG/KG/MIN 1. 467 mls/hr IV .Q24H ONE Rx#:[id number] Other: Weight 62.596 kg GENERAL EXAM: Lethargic, 70-year-old -[place] female, on room air, currently hypotensive, has been started on vasopressor support in the form of n orepinephrine, comfortable in no apparent distress. HEAD: Normocephalic/atraumatic. EYES: Normal reaction of pupils, equal size. Conjunctiva pink, sclera white. NOSE: Clear with pink turbinates. THROAT: No erythema or exudates. NECK: No masses, no JVD, no thyroid enlargement, no adenopathy. CHEST: No chest wall deformity. Symmetrical expansion. LUNGS: Equal air entry with no crackles, wheeze, rhonchi or dullness. CVS: Regular rate and rhythm, normal S1 and S2, no gallops, no murmurs, no rubs ABDOMEN: Soft, nontender. No hepatosplenomegaly, normal bowel sounds, no guarding or rigidity. EXTREMITIES: No clubbing, no edema, no cyanosis, 2+ pulses and upper and lower extremities. MUSCULOSKELETAL: Muscle strength and tone normal. SPINE: No scoliosis or deformity SKIN: No rashes CENTRAL NERVOUS SYSTEM: Lethargic, but arousable No focal deficits, tone is normal in all 4 extremities. Results - Laboratory Findings CBC and BMP: 11/30/20 11:32 11/30/20 11:31 PT/INR, D-dimer PT 10.7 sec (9.0-12.0) 11/30/20 11:31 INR 1.0 (<1.2) 11/30/20 11:31 Abnormal lab findings: Abnormal Labs 11/30/20 11/30/20 11/30/20 11:19 11:31 11:31 Hgb MCHC RDW Lymphocytes # APTT 21.4 L VBG pH VBG pCO2 VBG HCO3 Sodium 129 L Potassium 6.2 H* Carbon Dioxide 5 L* BUN 46 H Creatinine 2.11 H Glucose 785 H* POC Glucose (mg/dL) >600 H Troponin I Total Protein 5.5 L Albumin 3.2 L Urine Protein Urine Glucose (UA) Urine Ketones 11/30/20 11/30/20 11/30/20 11:31 11:32 13:33 Hgb 11.3 L MCHC 28.2 L RDW 15.8 H Lymphocytes # 0.4 L APTT VBG pH 7.16 L* VBG pCO2 20 L VBG HCO3 7 L* Sodium Potassium Carbon Dioxide BUN Creatinine Glucose POC Glucose (mg/dL) Troponin I Total Protein Albumin Urine Protein Trace H Urine Glucose (UA) 4+ H Urine Ketones 1+ H 11/30/20 11/30/20 13:54 15:23 Hgb MCHC RDW Lymphocytes # APTT VBG pH VBG pCO2 VBG HCO3 Sodium Potassium Carbon Dioxide BUN Creatinine Glucose POC Glucose (mg/dL) >600 H Troponin I 0.457 H* Total Protein Albumin Urine Protein Urine Glucose (UA) Urine Ketones - Diagnostic Findings Chest x-ray: report reviewed, image reviewed Additional studies: CT of the chest, abdomen and pelvis reviewed, brain CT reviewed, EKG reviewed Assessment and Plan Plan: Assessment: #1. Acute diabetic ketoacidosis #2. Hypotension related to severe dehydration, patient was fluid resuscitated with a total of 6 L and IV fluid boluses, and has been started on norepinephrine #3. Recent hospitalization for hyperglycemia, and diabetic ketoacidosis, discharged home on 11/28/2020 #4. Acute kidney injury #5. Hyperkalemia, hyponatremia due to severe dehydration #7. Anion gap metabolic acidosis related to DKA #8. Diabetes mellitus type 1, with diabetic neuropathy previous episodes of DKA #9. Coronary artery disease #10. Hypertension #11. Hyperlipidemia #12. Lifetime nonsmoker #13. Previous episode of DVT #14. Osteoarthritis #15. Chronic low back pain #16. Previous episode of pneumothorax in the remote past Plan: Continue fluid resuscitation per DKA protocol Norepinephrine has been started BMP every 4 hours, monitor electrolytes and renal profile Continue insulin infusion per DKA protocol Keep nothing by mouth CT chest, abdomen and pelvis and CT of the brain reviewed Patient is awaiting admission to the intensive care unit We'll continue to closely follow I performed a history & physical examination of the patient and discussed their management with my nurse practitioner, Kiesha Santiago. I reviewed the nurse practitioner's note and agree with the documented findings and plan of care. Lung sounds are positive for diminished breath sounds throughout the lung pretty. The findings and the impression was discussed with the patient. I attest to the documentation by the nurse practitioner. Time with Patient: Greater than 30 <Kim Causey - Last Filed: 11/30/20 16:03> Physical Exam Vitals: Vital Signs Temp Pulse Resp BP Pulse Ox 11/30/20 15:49 91.8 F L 73 18 115/45 100 11/30/20 15:30 61 18 77/52 100 11/30/20 15:15 61 18 62/38 99 11/30/20 15:00 61 18 62/40 99 11/30/20 14:58 61 18 58/40 99 11/30/20 14:00 63 18 68/43 99 11/30/20 13:00 63 18 68/42 100 11/30/20 12:45 72 18 75/49 100 11/30/20 12:15 72 18 79/45 100 11/30/20 11:18 97.3 F L 71 19 81/43 100 Intake and Output 11/30/20 11/30/20 11/30/20 06:59 14:59 22:59 Intake Total 0.538 2.228 Balance 0.538 2.228 Intake: Intake, IV Titration 0.538 2.228 Amount Norepinephrine 32 mg In 0.538 2.228 Sodium Chloride 0.9% 218 ml @ 0.05 MCG/KG/MIN 1. 467 mls/hr IV .Q24H ONE Rx#:[id number] Other: Weight 62.596 kg Results - Laboratory Findings CBC and BMP: 11/30/20 11:32 11/30/20 11:31 PT/INR, D-dimer PT 10.7 sec (9.0-12.0) 11/30/20 11:31 INR 1.0 (<1.2) 11/30/20 11:31 Abnormal lab findings: Abnormal Labs 11/30/20 11/30/20 11/30/20 11:19 11:31 11:31 Hgb MCHC RDW Lymphocytes # APTT 21.4 L VBG pH VBG pCO2 VBG HCO3 Sodium 129 L Potassium 6.2 H* Carbon Dioxide 5 L* BUN 46 H Creatinine 2.11 H Glucose 785 H* POC Glucose (mg/dL) >600 H Plasma Lactic Acid Celestino Troponin I Total Protein 5.5 L Albumin 3.2 L Urine Protein Urine Glucose (UA) Urine Ketones 11/30/20 11/30/20 11/30/20 11:31 11:32 13:33 Hgb 11.3 L MCHC 28.2 L RDW 15.8 H Lymphocytes # 0.4 L APTT VBG pH 7.16 L* VBG pCO2 20 L VBG HCO3 7 L* Sodium Potassium Carbon Dioxide BUN Creatinine Glucose POC Glucose (mg/dL) Plasma Lactic Acid Celestino Troponin I Total Protein Albumin Urine Protein Trace H Urine Glucose (UA) 4+ H Urine Ketones 1+ H 11/30/20 11/30/20 11/30/20 13:54 15:23 15:36 Hgb MCHC RDW Lymphocytes # APTT VBG pH VBG pCO2 VBG HCO3 Sodium Potassium Carbon Dioxide BUN Creatinine Glucose POC Glucose (mg/dL) >600 H Plasma Lactic Acid Celestino 2.3 H* Troponin I 0.457 H* Total Protein Albumin Urine Protein Urine Glucose (UA) Urine Ketones Assessment and Plan Plan: The patient was seen in the emergency department. The patient is currently on insulin drip at 6 units an hour in addition to norepinephrine infusion running at 0.19 mcg/kg per minute. Central line was inserted and the right femoral vein. The patient also has an arterial line in the left radial artery. She is arousable and she is communicating. Abdomen is soft. No evidence of any subcutaneous emphysema along the anterior chest area. She is afebrile. Cardiac rhythm is sinus. She is currently on oxygen at 2 L with a pulse of around 100%. DKA protocol is being utilized. The patient received a total of 5 L of IV fluids. Urine output is improving at this point in time and she has produced approximately 500 mL in her Wilson bag. We'll chest and the patient to the intensive care unit. We'll monitor the electrolytes. We'll monitor the blood sugar. Lactic acid level is at 2.3.
[2020-11-30 16:05] LABS: Glucose,Whole Blood >600 mg/dL (75-99)
[2020-11-30 17:00] LABS: Glucose,Whole Blood >600 mg/dL (75-99)
[2020-11-30 18:07] LABS: Glucose,Whole Blood 569 mg/dL (75-99)
[2020-11-30 19:17] LABS: Glucose,Whole Blood >600 mg/dL (75-99)
[2020-11-30 20:04] LABS: Glucose,Whole Blood 573 mg/dL (75-99)
[2020-11-30 21:00] LABS: Phosphorus 5.1 mg/dL (2.5-4.5); Potassium 4.7 mmol/L (3.5-5.1)
[2020-11-30 21:12] LABS: Glucose,Whole Blood 547 mg/dL (75-99)
[2020-11-30 21:34] LABS: Glucose,Whole Blood 440 mg/dL (75-99)
[2020-11-30 22:27] LABS: Glucose,Whole Blood 421 mg/dL (75-99)
[2020-11-30 23:10] LABS: Glucose,Whole Blood 383 mg/dL (75-99)
[2020-12-01 00:07] LABS: Glucose,Whole Blood 353 mg/dL (75-99)
[2020-12-01] MEDS: SODIUM CHLORIDE 0.9% 1,000 ML IV SCH (00:42)
[2020-12-01 01:11] LABS: Glucose,Whole Blood 307 mg/dL (75-99)
[2020-12-01 01:19] LABS: Phosphorus 3.7 mg/dL (2.5-4.5); Potassium 4.1 mmol/L (3.5-5.1)
[2020-12-01 01:40] LABS: Glucose,Whole Blood 293 mg/dL (75-99)
[2020-12-01] MEDS: D5-0.45% NACL WITH KCL 20MEQ/L 1,000 ML IV SCH ×3 (01:52→17:43)
[2020-12-01 02:41] LABS: Glucose,Whole Blood 272 mg/dL (75-99)
[2020-12-01 04:06] LABS: Glucose,Whole Blood 238 mg/dL (75-99)
[2020-12-01 04:40] LABS: Basophils % (A) 0 %; Eosinophils % (A) 0 %; HCT 30.9 % (34.0-46.0); Hypochromasia Slight; Lymphocytes # (A) 0.4 k/uL (1.0-4.8); Lymphocytes % (A) 4 %; MCH 27.2 pg (25.0-35.0); MCHC 30.5 g/dL (31.0-37.0); Mean Platelet Volume 9.7; Monocytes # (A) 0.4 k/uL (0-1.0); Monocytes % (A) 4 %; Neutrophils # (A) 9.6 k/uL (1.3-7.7); Neutrophils % (A) 92 %; Platelet Count 168 k/uL (150-450); RBC 3.46 m/uL (3.80-5.40); RDW 15.9 % (11.5-15.5); WBC 10.5 k/uL (3.8-10.6)
[2020-12-01 04:57] LABS: HGB 9.4 gm/dL (11.4-16.0); MCV 89.3 fL (80.0-100.0)
[2020-12-01] MEDS: INSULIN REGULAR 100 UNIT in SODIUM CHLORIDE 0.9% 100 ML IV SCH (04:59)
[2020-12-01 05:04] LABS: Glucose,Whole Blood 189 mg/dL (75-99)
[2020-12-01 05:06] LABS: Calcium 7.9 mg/dL (8.4-10.2); Phosphorus 2.9 mg/dL (2.5-4.5); Potassium 3.9 mmol/L (3.5-5.1)
[2020-12-01 05:40] LABS: Glucose,Whole Blood 208 mg/dL (75-99)
[2020-12-01 06:08] LABS: Glucose,Whole Blood 195 mg/dL (75-99)
[2020-12-01 06:38] LABS: Glucose,Whole Blood 151 mg/dL (75-99)
[2020-12-01 07:02] LABS: Glucose,Whole Blood 159 mg/dL (75-99)
[2020-12-01 08:34] LABS: Glucose,Whole Blood 120 mg/dL (75-99)
[2020-12-01 09:07] LABS: Phosphorus 2.4 mg/dL (2.5-4.5); Potassium 3.8 mmol/L (3.5-5.1)
[2020-12-01 09:32] LABS: Glucose,Whole Blood 99 mg/dL (75-99)
[2020-12-01 10:02] LABS: Glucose,Whole Blood 98 mg/dL (75-99)
--- NOTE | 2020-12-01 11:05 | P.PN ---
Subjective Progress Note Date: 12/01/20 This is a 70-year-old -[place] female patient with multiple comorbidities including coronary artery disease, previous PCI involving the PDA and RCA in addition to previous history of DVT of the lower extremity, diabetes mellitus type I, hypertension who was brought into the hospital on 11/30/2020 f or chief complaint of weakness. Patient was brought into the hospital by EMS. Patient was recently hospitalized from 11/27/2020 through 11/28/2020 with hyperglycemia, borderline DKA. Patient was discharged home on 11/28/2020. Patient had a recent change in her treatment, and lately had uncontrolled blood sugars. EMS was alerted by the patient's granddaughter. Patient was found to have low blood pressure was systolic in the 80s and later blood sugar greater than 600 when the EMS arrived. Patient was given 1.5 L in fluid boluses by EMS. Patient's venous blood gas in the ER showed pH of 7.1 with a bicarb of 7 and pCO2 of 20. Serum sodium was 129, potassium is 6.2, bicarbonate concentration was 5. BUN was 46, creatinine was 2.11, glucose was 785, LFTs were within normal limits, urinalysis showed 4+ glucose and 1+ ketones, serum acetone was positive, CT showed white blood cell count of 4.2, hemoglobin of 11.3. Correlation profile was unremarkable. Patient was started on insulin infusion per DKA protocol, she was given additional fluid volume in the emergency department. Brain CT was completed in view of altered mental status and showed age-related atrophic and chronic small vessel ischemic changes without acute intracranial process. CT of the chest, abdomen and pelvis showed possibly a small amount of air anterior to the heart bilateral pleural effusions and bilateral lateral basilar infiltrates, cardiomegaly, severely limited assessment of the abdomen, bowel gas pattern nonspecific, small amount of peritoneal fluid. EEG showed normal sinus rhythm. Patient remains hypotensive in the emergency department currently blood pressure is as low as 58/40, central line will be placed, so far she has received a total of 6 L and IV fluids. Norepinephrine has been started for blood pressure support. Her pulse ox is 99%, patient is afebrile. Repeat BMP is pending at this time, patient is awaiting admission to the intensive care unit On 12/01/2020 patient seen in follow-up in the intensive care unit, she is a bit more awake, more responsive, she is still a bit confused, she keeps repeating herself, but does not appear to be in any acute distress, breathing comfortably, she is currently on 4 L of oxygen with a pulse ox of 95-97%, hemodynamically she is stable, levo fed has been on hold since last night, she has had no fever or chills. Lung sounds are clear, with some mild bibasilar crackles, no coughing or wheezing. Insulin infusion is currently on hold, last 2 blood sugars were 99 and 98 at 0900 [id number] AM. Morning's blood work has been reviewed, anion gap has closed, and is currently 4, sodium is 137, potassium is 3.8, chloride is 113, CO2 is up to 20, renal profile has improved and BUN is 42 and creatinine is down to 1.5. No nausea or vomiting, no diarrhea, abdomen is soft. Patient has not had anything to eat or drink yet, she states she does not feel hungry. CBC was also reviewed showing white blood cell, 10.5, hemoglobin is 9.4. Patient continues on maintenance IV fluids with D5 half-normal saline with 20 of potassium running at 150 ML per hour. Urine output is 30-50 ML per hour. Has had no acute events overnight. Objective - Vital Signs Vital signs: Vital Signs Temp 97.9 F 12/01/20 09:00 Pulse 72 12/01/20 10:00 Resp 16 12/01/20 10:00 BP 138/74 12/01/20 10:00 Pulse Ox 97 12/01/20 10:00 Intake & Output 11/30/20 12/01/20 12/01/20 18:59 06:59 18:59 Intake Total 44.382 1688.401 626.938 Output Total 545 170 Balance 44.382 1143.401 456.938 Weight 62.596 kg 69.1 kg Intake: IV 1200 606 0.9ns for leslie 6 D5-0.45% NaCl with KCl 600 600 20Meq/l 1,000 ml @ 150 mls/hr IV .Q6H40M [facility] Rx# :[id number] Sodium Chloride 0.9% 1, 600 000 ml @ 200 mls/hr IV . Q5H [facility] Rx#:[id number] Intake, IV Titration 44.382 488.401 20.938 Amount D5-0.45% NaCl with KCl 300 20Meq/l 1,000 ml @ 150 mls/hr IV .Q6H40M [facility] Rx# :[id number] Insulin Regular 100 unit 24.612 175.683 20.938 In Sodium Chloride 0.9% 100 ml @ 0.1 UNITS/KG/HR 6.322 mls/hr IV .[id number] [facility] Rx#:[id number] Norepinephrine 32 mg In 19.770 12.718 Sodium Chloride 0.9% 218 ml @ 0.05 MCG/KG/MIN 1. 467 mls/hr IV .Q24H [facility] Rx#:[id number] Output: Urine 545 170 Other: Voiding Method Indwelling Catheter Indwelling Catheter ABP, PAP, CO, CI - Last Documented Arterial Blood Pressure 129/54 - Exam GENERAL EXAM: Sleepy but easily arousable 70-year-old -[place] female, on room air, comfortable in no apparent distress. HEAD: Normocephalic/atraumatic. EYES: Normal reaction of pupils, equal size. Conjunctiva pink, sclera white. NOSE: Clear with pink turbinates. THROAT: No erythema or exudates. NECK: No masses, no JVD, no thyroid enlargement, no adenopathy. CHEST: No chest wall deformity. Symmetrical expansion. LUNGS: Equal air entry with no crackles, wheeze, rhonchi or dullness. CVS: Regular rate and rhythm, normal S1 and S2, no gallops, no murmurs, no rubs ABDOMEN: Soft, nontender. No hepatosplenomegaly, normal bowel sounds, no guarding or rigidity. EXTREMITIES: No clubbing, no edema, no cyanosis, 2+ pulses and upper and lower extremities. MUSCULOSKELETAL: Muscle strength and tone normal. SPINE: No scoliosis or deformity SKIN: No rashes CENTRAL NERVOUS SYSTEM: Lethargic, but arousable No focal deficits, tone is normal in all 4 extremities. - Labs CBC & Chem 7: 12/01/20 04:00 12/01/20 08:20 Labs: Abnormal Lab Results - Last 24 Hours (Table) 11/30/20 11/30/20 11/30/20 Range/Units 11:19 11:31 11:31 RBC (3.80-5.40) m/uL Hgb (11.4-16.0) gm/dL Hct (34.0-46.0) % MCHC (31.0-37.0) g/dL RDW (11.5-15.5) % Neutrophils # (1.3-7.7) k/uL Lymphocytes # (1.0-4.8) k/uL APTT 21.4 L (22.0-30.0) sec VBG pH (7.31-7.41) VBG pCO2 (37-51) mmHg VBG HCO3 (24-28) mmol/L Sodium 129 L (137-145) mmol/L Potassium 6.2 H* (3.5-5.1) mmol/L Chloride (98-107) mmol/L Carbon Dioxide 5 L* (22-30) mmol/L BUN 46 H (7-17) mg/dL Creatinine 2.11 H (0.52-1.04) mg/dL Glucose 785 H* (74-99) mg/dL POC Glucose (mg/dL) >600 H (75-99) mg/dL Plasma Lactic Acid Celestino (0.7-2.0) mmol/L Calcium (8.4-10.2) mg/dL Phosphorus (2.5-4.5) mg/dL Troponin I (0.000-0.034) ng/mL Total Protein 5.5 L (6.3-8.2) g/dL Albumin 3.2 L (3.5-5.0) g/dL Urine Protein (Negative) Urine Glucose (UA) (Negative) Urine Ketones (Negative) 11/30/20 11/30/20 11/30/20 Range/Units 11:31 11:32 13:33 RBC (3.80-5.40) m/uL Hgb 11.3 L (11.4-16.0) gm/dL Hct (34.0-46.0) % MCHC 28.2 L (31.0-37.0) g/dL RDW 15.8 H (11.5-15.5) % Neutrophils # (1.3-7.7) k/uL Lymphocytes # 0.4 L (1.0-4.8) k/uL APTT (22.0-30.0) sec VBG pH 7.16 L* (7.31-7.41) VBG pCO2 20 L (37-51) mmHg VBG HCO3 7 L* (24-28) mmol/L Sodium (137-145) mmol/L Potassium (3.5-5.1) mmol/L Chloride (98-107) mmol/L Carbon Dioxide (22-30) mmol/L BUN (7-17) mg/dL Creatinine (0.52-1.04) mg/dL Glucose (74-99) mg/dL POC Glucose (mg/dL) (75-99) mg/dL Plasma Lactic Acid Celestino (0.7-2.0) mmol/L Calcium (8.4-10.2) mg/dL Phosphorus (2.5-4.5) mg/dL Troponin I (0.000-0.034) ng/mL Total Protein (6.3-8.2) g/dL Albumin (3.5-5.0) g/dL Urine Protein Trace H (Negative) Urine Glucose (UA) 4+ H (Negative) Urine Ketones 1+ H (Negative) 11/30/20 11/30/20 11/30/20 Range/Units 13:54 15:23 15:36 RBC (3.80-5.40) m/uL Hgb (11.4-16.0) gm/dL Hct (34.0-46.0) % MCHC (31.0-37.0) g/dL RDW (11.5-15.5) % Neutrophils # (1.3-7.7) k/uL Lymphocytes # (1.0-4.8) k/uL APTT (22.0-30.0) sec VBG pH (7.31-7.41) VBG pCO2 (37-51) mmHg VBG HCO3 (24-28) mmol/L Sodium 133 L (137-145) mmol/L Potassium 5.4 H (3.5-5.1) mmol/L Chloride (98-107) mmol/L Carbon Dioxide 5 L* (22-30) mmol/L BUN (7-17) mg/dL Creatinine 2.15 H (0.52-1.04) mg/dL Glucose 724 H* (74-99) mg/dL POC Glucose (mg/dL) >600 H (75-99) mg/dL Plasma Lactic Acid Celestino (0.7-2.0) mmol/L Calcium (8.4-10.2) mg/dL Phosphorus 6.4 H (2.5-4.5) mg/dL Troponin I 0.457 H* (0.000-0.034) ng/mL Total Protein (6.3-8.2) g/dL Albumin (3.5-5.0) g/dL Urine Protein (Negative) Urine Glucose (UA) (Negative) Urine Ketones (Negative) 11/30/20 11/30/20 11/30/20 Range/Units 15:36 15:58 16:59 RBC (3.80-5.40) m/uL Hgb (11.4-16.0) gm/dL Hct (34.0-46.0) % MCHC (31.0-37.0) g/dL RDW (11.5-15.5) % Neutrophils # (1.3-7.7) k/uL Lymphocytes # (1.0-4.8) k/uL APTT (22.0-30.0) sec VBG pH (7.31-7.41) VBG pCO2 (37-51) mmHg VBG HCO3 (24-28) mmol/L Sodium (137-145) mmol/L Potassium (3.5-5.1) mmol/L Chloride (98-107) mmol/L Carbon Dioxide (22-30) mmol/L BUN (7-17) mg/dL Creatinine (0.52-1.04) mg/dL Glucose (74-99) mg/dL POC Glucose (mg/dL) >600 H >600 H (75-99) mg/dL Plasma Lactic Acid Celestino 2.3 H* (0.7-2.0) mmol/L Calcium (8.4-10.2) mg/dL Phosphorus (2.5-4.5) mg/dL Troponin I (0.000-0.034) ng/mL Total Protein (6.3-8.2) g/dL Albumin (3.5-5.0) g/dL Urine Protein (Negative) Urine Glucose (UA) (Negative) Urine Ketones (Negative) 11/30/20 11/30/20 11/30/20 Range/Units 18:04 18:22 19:15 RBC (3.80-5.40) m/uL Hgb (11.4-16.0) gm/dL Hct (34.0-46.0) % MCHC (31.0-37.0) g/dL RDW (11.5-15.5) % Neutrophils # (1.3-7.7) k/uL Lymphocytes # (1.0-4.8) k/uL APTT (22.0-30.0) sec VBG pH (7.31-7.41) VBG pCO2 (37-51) mmHg VBG HCO3 (24-28) mmol/L Sodium (137-145) mmol/L Potassium (3.5-5.1) mmol/L Chloride (98-107) mmol/L Carbon Dioxide (22-30) mmol/L BUN (7-17) mg/dL Creatinine (0.52-1.04) mg/dL Glucose (74-99) mg/dL POC Glucose (mg/dL) 569 H >600 H (75-99) mg/dL Plasma Lactic Acid Celestino 2.5 H* (0.7-2.0) mmol/L Calcium (8.4-10.2) mg/dL Phosphorus (2.5-4.5) mg/dL Troponin I (0.000-0.034) ng/mL Total Protein (6.3-8.2) g/dL Albumin (3.5-5.0) g/dL Urine Protein (Negative) Urine Glucose (UA) (Negative) Urine Ketones (Negative) 11/30/20 11/30/20 11/30/20 Range/Units 20:01 20:22 21:00 RBC (3.80-5.40) m/uL Hgb (11.4-16.0) gm/dL Hct (34.0-46.0) % MCHC (31.0-37.0) g/dL RDW (11.5-15.5) % Neutrophils # (1.3-7.7) k/uL Lymphocytes # (1.0-4.8) k/uL APTT (22.0-30.0) sec VBG pH (7.31-7.41) VBG pCO2 (37-51) mmHg VBG HCO3 (24-28) mmol/L Sodium 136 L (137-145) mmol/L Potassium (3.5-5.1) mmol/L Chloride (98-107) mmol/L Carbon Dioxide 9 L* (22-30) mmol/L BUN (7-17) mg/dL Creatinine 2.11 H (0.52-1.04) mg/dL Glucose 545 H* (74-99) mg/dL POC Glucose (mg/dL) 573 H 547 H (75-99) mg/dL Plasma Lactic Acid Celestino (0.7-2.0) mmol/L Calcium (8.4-10.2) mg/dL Phosphorus 5.1 H (2.5-4.5) mg/dL Troponin I (0.000-0.034) ng/mL Total Protein (6.3-8.2) g/dL Albumin (3.5-5.0) g/dL Urine Protein (Negative) Urine Glucose (UA) (Negative) Urine Ketones (Negative) 11/30/20 11/30/20 11/30/20 Range/Units 21:22 22:25 22:25 RBC (3.80-5.40) m/uL Hgb (11.4-16.0) gm/dL Hct (34.0-46.0) % MCHC (31.0-37.0) g/dL RDW (11.5-15.5) % Neutrophils # (1.3-7.7) k/uL Lymphocytes # (1.0-4.8) k/uL APTT (22.0-30.0) sec VBG pH (7.31-7.41) VBG pCO2 (37-51) mmHg VBG HCO3 (24-28) mmol/L Sodium (137-145) mmol/L Potassium (3.5-5.1) mmol/L Chloride (98-107) mmol/L Carbon Dioxide (22-30) mmol/L BUN (7-17) mg/dL Creatinine (0.52-1.04) mg/dL Glucose (74-99) mg/dL POC Glucose (mg/dL) 440 H 421 H (75-99) mg/dL Plasma Lactic Acid Celestino 4.3 H* (0.7-2.0) mmol/L Calcium (8.4-10.2) mg/dL Phosphorus (2.5-4.5) mg/dL Troponin I (0.000-0.034) ng/mL Total Protein (6.3-8.2) g/dL Albumin (3.5-5.0) g/dL Urine Protein (Negative) Urine Glucose (UA) (Negative) Urine Ketones (Negative) 11/30/20 12/01/20 12/01/20 Range/Units 23:08 00:00 00:05 RBC (3.80-5.40) m/uL Hgb (11.4-16.0) gm/dL Hct (34.0-46.0) % MCHC (31.0-37.0) g/dL RDW (11.5-15.5) % Neutrophils # (1.3-7.7) k/uL Lymphocytes # (1.0-4.8) k/uL APTT (22.0-30.0) sec VBG pH (7.31-7.41) VBG pCO2 (37-51) mmHg VBG HCO3 (24-28) mmol/L Sodium 136 L (137-145) mmol/L Potassium (3.5-5.1) mmol/L Chloride 110 H (98-107) mmol/L Carbon Dioxide 13 L (22-30) mmol/L BUN 44 H (7-17) mg/dL Creatinine 1.91 H (0.52-1.04) mg/dL Glucose 342 H (74-99) mg/dL POC Glucose (mg/dL) 383 H 353 H (75-99) mg/dL Plasma Lactic Acid Celestino (0.7-2.0) mmol/L Calcium (8.4-10.2) mg/dL Phosphorus (2.5-4.5) mg/dL Troponin I (0.000-0.034) ng/mL Total Protein (6.3-8.2) g/dL Albumin (3.5-5.0) g/dL Urine Protein (Negative) Urine Glucose (UA) (Negative) Urine Ketones (Negative) 12/01/20 12/01/20 12/01/20 Range/Units 01:10 01:38 02:39 RBC (3.80-5.40) m/uL Hgb (11.4-16.0) gm/dL Hct (34.0-46.0) % MCHC (31.0-37.0) g/dL RDW (11.5-15.5) % Neutrophils # (1.3-7.7) k/uL Lymphocytes # (1.0-4.8) k/uL APTT (22.0-30.0) sec VBG pH (7.31-7.41) VBG pCO2 (37-51) mmHg VBG HCO3 (24-28) mmol/L Sodium (137-145) mmol/L Potassium (3.5-5.1) mmol/L Chloride (98-107) mmol/L Carbon Dioxide (22-30) mmol/L BUN (7-17) mg/dL Creatinine (0.52-1.04) mg/dL Glucose (74-99) mg/dL POC Glucose (mg/dL) 307 H 293 H 272 H (75-99) mg/dL Plasma Lactic Acid Celestino (0.7-2.0) mmol/L Calcium (8.4-10.2) mg/dL Phosphorus (2.5-4.5) mg/dL Troponin I (0.000-0.034) ng/mL Total Protein (6.3-8.2) g/dL Albumin (3.5-5.0) g/dL Urine Protein (Negative) Urine Glucose (UA) (Negative) Urine Ketones (Negative) 12/01/20 12/01/20 12/01/20 Range/Units 04:00 04:00 04:05 RBC 3.46 L (3.80-5.40) m/uL Hgb 9.4 L D (11.4-16.0) gm/dL Hct 30.9 L (34.0-46.0) % MCHC 30.5 L (31.0-37.0) g/dL RDW 15.9 H (11.5-15.5) % Neutrophils # 9.6 H (1.3-7.7) k/uL Lymphocytes # 0.4 L (1.0-4.8) k/uL APTT (22.0-30.0) sec VBG pH (7.31-7.41) VBG pCO2 (37-51) mmHg VBG HCO3 (24-28) mmol/L Sodium (137-145) mmol/L Potassium (3.5-5.1) mmol/L Chloride 112 H (98-107) mmol/L Carbon Dioxide 17 L (22-30) mmol/L BUN 42 H (7-17) mg/dL Creatinine 1.70 H (0.52-1.04) mg/dL Glucose 231 H (74-99) mg/dL POC Glucose (mg/dL) 238 H (75-99) mg/dL Plasma Lactic Acid Celestino (0.7-2.0) mmol/L Calcium 7.9 L (8.4-10.2) mg/dL Phosphorus (2.5-4.5) mg/dL Troponin I (0.000-0.034) ng/mL Total Protein (6.3-8.2) g/dL Albumin (3.5-5.0) g/dL Urine Protein (Negative) Urine Glucose (UA) (Negative) Urine Ketones (Negative) 12/01/20 12/01/20 12/01/20 Range/Units 05:03 05:37 06:07 RBC (3.80-5.40) m/uL Hgb (11.4-16.0) gm/dL Hct (34.0-46.0) % MCHC (31.0-37.0) g/dL RDW (11.5-15.5) % Neutrophils # (1.3-7.7) k/uL Lymphocytes # (1.0-4.8) k/uL APTT (22.0-30.0) sec VBG pH (7.31-7.41) VBG pCO2 (37-51) mmHg VBG HCO3 (24-28) mmol/L Sodium (137-145) mmol/L Potassium (3.5-5.1) mmol/L Chloride (98-107) mmol/L Carbon Dioxide (22-30) mmol/L BUN (7-17) mg/dL Creatinine (0.52-1.04) mg/dL Glucose (74-99) mg/dL POC Glucose (mg/dL) 189 H 208 H 195 H (75-99) mg/dL Plasma Lactic Acid Celestino (0.7-2.0) mmol/L Calcium (8.4-10.2) mg/dL Phosphorus (2.5-4.5) mg/dL Troponin I (0.000-0.034) ng/mL Total Protein (6.3-8.2) g/dL Albumin (3.5-5.0) g/dL Urine Protein (Negative) Urine Glucose (UA) (Negative) Urine Ketones (Negative) 12/01/20 12/01/20 12/01/20 Range/Units 06:37 07:00 08:20 RBC (3.80-5.40) m/uL Hgb (11.4-16.0) gm/dL Hct (34.0-46.0) % MCHC (31.0-37.0) g/dL RDW (11.5-15.5) % Neutrophils # (1.3-7.7) k/uL Lymphocytes # (1.0-4.8) k/uL APTT (22.0-30.0) sec VBG pH (7.31-7.41) VBG pCO2 (37-51) mmHg VBG HCO3 (24-28) mmol/L Sodium (137-145) mmol/L Potassium (3.5-5.1) mmol/L Chloride 113 H (98-107) mmol/L Carbon Dioxide 20 L (22-30) mmol/L BUN 42 H (7-17) mg/dL Creatinine 1.50 H (0.52-1.04) mg/dL Glucose 122 H (74-99) mg/dL POC Glucose (mg/dL) 151 H 159 H (75-99) mg/dL Plasma Lactic Acid Celestino (0.7-2.0) mmol/L Calcium (8.4-10.2) mg/dL Phosphorus 2.4 L (2.5-4.5) mg/dL Troponin I (0.000-0.034) ng/mL Total Protein (6.3-8.2) g/dL Albumin (3.5-5.0) g/dL Urine Protein (Negative) Urine Glucose (UA) (Negative) Urine Ketones (Negative) 12/01/20 Range/Units 08:31 RBC (3.80-5.40) m/uL Hgb (11.4-16.0) gm/dL Hct (34.0-46.0) % MCHC (31.0-37.0) g/dL RDW (11.5-15.5) % Neutrophils # (1.3-7.7) k/uL Lymphocytes # (1.0-4.8) k/uL APTT (22.0-30.0) sec VBG pH (7.31-7.41) VBG pCO2 (37-51) mmHg VBG HCO3 (24-28) mmol/L Sodium (137-145) mmol/L Potassium (3.5-5.1) mmol/L Chloride (98-107) mmol/L Carbon Dioxide (22-30) mmol/L BUN (7-17) mg/dL Creatinine (0.52-1.04) mg/dL Glucose (74-99) mg/dL POC Glucose (mg/dL) 120 H (75-99) mg/dL Plasma Lactic Acid Celestino (0.7-2.0) mmol/L Calcium (8.4-10.2) mg/dL Phosphorus (2.5-4.5) mg/dL Troponin I (0.000-0.034) ng/mL Total Protein (6.3-8.2) g/dL Albumin (3.5-5.0) g/dL Urine Protein (Negative) Urine Glucose (UA) (Negative) Urine Ketones (Negative) Assessment and Plan Plan: Assessment: #1. Acute diabetic ketoacidosis, improved, and anion gap has closed on today's labs #2. Hypotension related to severe dehydration, patient was fluid resuscitated with a total of 6 L and IV fluid boluses, and has been started on norepinep hrine. Resolved, and patient is off the vasopressor support #3. Recent hospitalization for hyperglycemia, and diabetic ketoacidosis, discharged home on 11/28/2020 #4. Acute kidney injury, improved #5. Hyperkalemia, hyponatremia due to severe dehydration #7. Anion gap metabolic acidosis related to DKA, resolved #8. Diabetes mellitus type 1, with diabetic neuropathy previous episodes of DKA #9. Coronary artery disease #10. Hypertension #11. Hyperlipidemia #12. Lifetime nonsmoker #13. Previous episode of DVT #14. Osteoarthritis #15. Chronic low back pain #16. Previous episode of pneumothorax in the remote past Plan: Vasopressor support has been discontinued Metabolic acidosis has improved, anion gap has closed We'll switch the patient to Levemir and sliding scale NovoLog Current back to IV fluids to 75 ML per hour Patient can be started on clear liquid diet Continue GI and DVT prophylaxis Continue fluid resuscitation per DKA protocol We'll continue to closely follow I performed a history & physical examination of the patient and discussed their management with my nurse practitioner, Kiesha Santiago. I reviewed the nurse practitioner's note and agree with the documented findings and plan of care. Lung sounds are positive for diminished breath sounds throughout the lung pretty. The findings and the impression was discussed with the patient. I attest to the documentation by the nurse practitioner. Time with Patient: Less than 30
--- NOTE | 2020-12-01 11:38 | ECHOF ---
Referral Reason:hypotension MEASUREMENTS -------- HEIGHT: 172.7 cm WEIGHT: 62.6 kg BP: IVSd: 1.2 cm (0.6 - 1.1) LVIDd: 3.0 cm (3.9 - 5.3) LVPWd: 2.0 cm (0.6 - 1.1) EDV(Teich): 34 ml IVSs: 1.6 cm LVIDs: 1.7 cm LVPWs: 2.4 cm %IVS Thck: 32 % ESV(Teich): 9 ml EF(Teich): 73 % %FS: 41 % SV(Teich): 25 ml RVIDd: 2.9 cm (< 3.3) IVC: 19.94 mm RA Diam: 4.2 cm LALs A4C: 4.9 cm LAAs A4C: 17.1 cm LAESV A-L A4C: 50 ml LAESV MOD A4C: 48 ml LALs A2C: 5.0 cm LAAs A2C: 15.7 cm LAESV A-L A2C: 41 ml LAESV MOD A2C: 38 ml LAESV(A-L): 46 ml LAESV Index (A-L): 26.45 ml/m Ao Diam: 3.3 cm (2.0 - 3.7) LA Diam: 3.6 cm (2.7 - 3.8) AV Cusp: 2.0 cm (1.5 - 2.6) EPSS: 0.6 cm MV E [place]: 0.79 m/s MV DecT: 252 ms MV Dec [place]: 3.1 m/s MV A [place]: 0.85 m/s MV E/A Ratio: 0.93 MV PHT: 73 ms MR Vmax: 1.71 m/s MR maxP.63 mmHg LVOT Vmax: 0.76 m/s LVOT maxP.34 mmHg AV Vmax: 1.47 m/s AV maxP.69 mmHg TR Vmax: 2.77 m/s TR maxP.72 mmHg RAP: 15.00 mmHg RVSP: 45.72 mmHg MV EF SLOPE: 78.57 mm/s (70 - 150) MV EXCURSION: 18.74 mm (> 18.000) FINDINGS -------- This was a technically good study. The left ventricular size is normal. There is moderate concentric left ventricular hypertrophy. O verall left ventricular systolic function is normal with, an EF between 55 - 60 %. Normal LAP Grade 1 Diastolic Dysfunction. The right ventricle is normal in size. The right atrial size is normal. RA appears enlarged. Interatrial and interventricular septum intact. Aortic valve is trileaflet and is mildly thickened. The mitral valve is normal. The mitral valve leaflets are mildly thickened. Mild mitral annular c alcification present. Mild mitral regurgitation is present. The tricuspid valve appears structurally normal. Moderate tricuspid regurgitation present. There is mild pulmonary hypertension. The right ventricular systolic pressure, as measured by Doppler, is 45.72mmHg. There is no pulmonic regurgitation present. The aortic root size is normal. The inferior vena cava is mildly dilated. There is no pericardial effusion. CONCLUSIONS -------- 1. The left ventricular size is normal. 2. There is moderate concentric left ventricular hypertrophy. 3. Overall left ventricular systolic function is normal with, an EF between 55 - 60 %. 4. Normal LAP Grade 1 Diastolic Dysfunction. 5. Aortic valve is trileaflet and is mildly thickened. 6. The mitral valve leaflets are mildly thickened. 7. Mild mitral annular calcification present. 8. Mild mitral regurgitation is present. 9. Moderate tricuspid regurgitation present. 10. There is mild pulmonary hypertension. 11. The right ventricular systolic pressure, as measured by Doppler, is 45.72mmHg. 12. The inferior vena cava is mildly dilated. 13. There is no pericardial effusion. [employer] MEMBER: Kizzy Urias RDCS
[2020-12-01] MEDS: INSULIN DETEMIR (LEVEMIR) 100 UNIT/ML SYR SQ SCH ×2 (12:03→20:58)
[2020-12-01 12:07] LABS: Glucose,Whole Blood 151 mg/dL (75-99)
[2020-12-01] MEDS: INSULIN ASPART (NovoLOG) 100 UNIT/ML VIAL SQ SCH ×3 (13:02→20:43)
[2020-12-01] MEDS: SENNOSIDES-DOCUSATE SODIUM 1 EACH TAB PO SCH (13:06)
[2020-12-01 14:07] VITALS: BMI 23.1
--- NOTE | 2020-12-01 14:15 | P.HPIM ---
History of Present Illness H&P Date: 12/01/20 HISTORY OF PRESENT ILLNESS: This is a 70 -year-old -[place] female with a previous medical history significant for hypertension and hypertensive cardiovascular disease, hyperlipidemia, diabetes mellitus type 1 with diabetic polyneuropathy, PAD, CAD post PCI in 2010 ,history of narcolepsy, history of osteoarthritis. Patient has had multiple admissions to both [facility] and [facility] for DKA. Her most recent hospitalization was 11/1709/. Patient states that she went home and she took her nighttime insulin but in the morning on the following afternoon it seems that she did not take any insulin as would normally be scheduled. She then developed vomiting, no diarrhea. She denies any shortness of breath. She had significant weakness and came in the hospital for further evaluation and route, patient was found to have systolic blood pressure in the 80s and was given 1/2 L of IV fluids. When patient arrived to the emergency center glucose was 785, acetone positive. Blood gas revealed pH 7.1 with bicarb 7 and pCO2 20. Serum sodium was 129, potassium 6.2, bicarbonate concentration 5. BUN 46, creatinine 2.11, LFTs were within normal limits, urinalysis showed 4+ glucose and 1+ ketones. WBC 4.2, hemoglobin 11.3. Correlation profile was unremarkable. Patient was started on insulin infusion per DKA protocol, she was given additional fluid volume in the emergency department. CT of the brain revealed age-related atrophic and chronic small vessel ischemic changes without acute intracranial process. CT of the chest, abdomen and pelvis showed possibly a small amount of air anterior to the heart bilateral pleural effusions and bilateral lateral basilar infiltrates, cardiomegaly, severely limited assessment of the abdomen, bowel gas pattern nonspecific, small amount of peritoneal fluid. Echocardiogram revealed EF of 55-60% with moderate concentric left hypertrophy, mild mitral regurgitation, moderate tricuspid regurgitation, mild pulmonary hypertension. Temperature was 91.8, heart rate in the 70s, blood pressure 58/40, pulse ox 99% on 2 L. EKG showed normal sinus rhythm. Patient was started on Norepinephrine and Ty Hugger applied, seen by ship's pilot and admitted to the intensive care unit. Patient is seen today in the intensive care unit. REVIEW OF SYSTEMS: Constitutional: No documented fever, reported chills, no night sweats. No weight change. Reported weakness, Reported fatigue. Reported daytime sleepiness. HEENT: No headache. No blurred vision or double vision, no loss of vision. No loss of Hearing, no ringing in the ears, no dizziness. No nasal drainage or congestion. No epistaxis. No sore throat. Lungs: No shortness of breath, no cough, no sputum production. No wheezing. Reports dyspnea with activity. Cardiovascular: No chest pain, no lower extremity edema. No palpitations. No paroxysmal nocturnal dyspnea. No orthopnea. No lightheadedness or dizziness. No syncopal episodes. Abdominal: Reports no abdominal pain. No nausea, vomiting. No diarrhea. No constipation. No bloody or tarry stools. Reported loss of appetite. Genitourinary: No dysuria, increased frequency, urgency. No urinary retention. Musculoskeletal: No myalgias. Reported muscle weakness, positive for gait dysfunction, severe pain in the right hip. Integumentary: No wounds, no rash or pruritus. No unusual bruising. No change in hair or nails,right foot callus Neurologic: No aphasia. No facial droop. No change in mentation. No head injury. No headache. No paralysis. No paresthesia. Psychiatric: depression. anxiety no mood swings. Endocrine: Fluctuation of abnormal blood glucose levels. PAST MEDICAL HISTORY: DIABETES mellitus type 1. Diabetic polyneuropathy. Hypertension and hypertensive cardiovascular disease. Hyperlipidemia. PAD. Narcolepsy. CAD . Anxiety. Osteoarthritis. PAST SURGICAL HISTORY: APPENDECTOMY. Hysterectomy. Tubal ligation. Ectopic surgery. Cholecystectomy. Bilateral cataract surgery. Bilateral carpal tunnel release. Left heart catheterization with PCI in 2010. Chest tube for pneumothorax. EGD and colonoscopy. SOCIAL HISTORY: Patient used to smoke about pack every day she smoked since she was in her teenager, she quit many years ago, she denies any alcohol ingestion, no drug use or abuse. FAMILY HISTORY: Mother in hospice care at the age of 75 after she had liver cirrhosis from alcoholic liver disease, father at age 58 from renal failure, patient has one brother with diabetes hypertension and heart disease is getting coronary artery bypass graft at [facility], patient had 4 sisters one with diabetes and she had the third stroke currently in [place], one with hypertension, one from diabetes and poor embolism at the age of 68, one of her sisters at age of 58 from metastatic breast cancer to the brain, taco iniguez has 2 sons no major medical problems. PHYSICAL EXAMINATION: General: 70-year-old -[place] female laying down in bed no acute distress . HEENT: Head is atraumatic, normocephalic, pupils were equal round reactive to light and recommendation, extraocular muscle movement were intact, sclera nonicteric, conjunctivae were pale, mucous membranes of the mouth are somewhat dry. Neck: Supple, no JVP, normal carotid upstroke bilaterally, no lymphadenopathy. Chest: Decreased breath sounds at the bases, few rhonchi, no extremity wheezes, no chest wall tenderness, no intercostal retractions. Heart: First heart sound is normal, second heart sounds normal there is systolic ejection murmur 2/6 located in the left sternal border. Abdomen: Soft, nontender, nondistended, positive bowel sounds. Extremities: There is generalized edema calf tenderness DP +1 bilaterally. Neurologic examination: Patient is awake alert and oriented x3, cranial nerves II-12 appear grossly intact. ASSESSMENT AND PLAN: 1. Diabetic ketoacidosis. Continue DKA protocol. Eventually patient will be transitioned to Toujeo 12 units at bedtime, Humalog 12 units with meals. Continue consistent carb. 2. Hypovolemic shock.Patient is status post 6 L of IV fluid and required norepinephrine, Ty Hugger for hypothermia. 3. Acute kidney injury. Continue to monitor, avoid nephrotoxic agents. 4. Hyperkalemia secondary to acute kidney injury. 5. Hyponatremia secondary to DKA/hyperglycemia. 6. Diabetes mellitus type 1 with diabetic polyneuropathy. Continue planned in 1. 7. Hypertension and hypertensive cardio vascular disease.patient is currently hypotensive. 8. Hyperlipidemia. Patient is not currently on statin. 9. CAD post-PCI in 2010. Hold Coreg 12.5 mg orally twice every day. 10. History of PAD with a recent callus of the right foot. Appears to be stable. 11. History of narcolepsy never treated. 12. DVT prophylaxis. Continue Lovenox 30 mg subcutaneously every 12 hours. 13. GI prophylaxis. Continue Protonix 40 mg po every 24 hours. 14. Admit to inpatient. Estimated length of stay greater than 2 midnights. 11. Patient is full code. DISCHARGE PLAN: Home Impression and plan of care have been directed as dictated by the signing physician. Faith Camarillo nurse practitioner acting as scribe for signing physician. Past Medical History Past Medical History: Coronary Artery Disease (CAD), Diabetes Mellitus, Deep Vei n Thrombosis (DVT), GERD/Reflux, Hyperlipidemia, Hypertension, Osteoarthritis (OA), Vascular Disorder Additional Past Medical History / Comment(s): IDDM type I with diabetic n europathy, narcolepsy, DVTs L lower extremity, vertigo occasionally, low back pian with bilateral sciatica, PAD, pneumothorax when pt was in her 20s with chest tube, constipation, bronchitis. The patient also had a infection will COVID 19 on 06/28/2019 from which she recovered. History of Any Multi-Drug Resistant Organisms: None Reported Past Surgical History: Appendectomy, Cholecystectomy, Heart Catheterization With Stent, Hysterectomy, Tubal Ligation Additional Past Surgical History / Comment(s): PCI/stent, ectopic pregnancies with eventual total hysterectomy, EGD, colonoscopy, L breast biopsy-benign, bilateral carpal tunnel release, bilateral eyes laser surgery/lens. Past Anesthesia/Blood Transfusion Reactions: Previous Problems w/ Anesthesia, Postoperative Nausea & Vomiting (PONV) Additional Past Anesthesia/Blood Transfusion Reaction / Comment(s): PT STATES HER AND HER FAMILY HAVE DIFFICULTY WAKING UP Date of Last Stent Placement:: Smoking Status: Never smoker - Past Family History Mother Family Medical History: Hypertension, Seizure Disorder Additional Family Medical History / Comment(s): Mother at age 75 Father Family Medical History: Renal Disease Additional Family Medical History / Comment(s): Father at age 58 from acute renal failure and he was an alcoholic. Son(s) Family Medical History: No Reported History Additional Family Medical History / Comment(s): Patient has 2 sons with no major medical problems. Medications and Allergies Home Medications Medication Instructions Recorded Confirmed Type Carvedilol [Coreg] 12.5 mg PO BID 04/15/20 11/30/20 History hydrALAZINE HCL [Apresoline] 50 mg PO TID 04/15/20 11/30/20 History lisinopriL 20 mg PO BID 11/27/20 11/30/20 History Insulin Lispro [humaLOG Kwikpen] 12 unit SQ AC-TID #0 11/28/20 11/30/20 Rx Sennosides-Docusate Sodium 2 tab PO DAILY PRN 11/30/20 11/30/20 History [Senokot-S] Allergies Allergy/AdvReac Type Severity Reaction Status Date / Time morphine AdvReac PASSES OUT Verified 11/30/20 11:48 nitroglycerin AdvReac PASSES OUT Verified 11/30/20 11:48 Sulfa (Sulfonamide AdvReac Itching Verified 11/30/20 11:48 Antibiotics) Physical Exam Vitals: Vital Signs Temp Pulse Pulse Resp BP BP Pulse Ox 12/01/20 12:00 97.9 F 77 16 137/75 96 12/01/20 11:00 77 11 L 92 L 12/01/20 10:00 72 16 138/74 97 12/01/20 09:00 97.9 F 74 16 104/62 95 12/01/20 08:00 97.9 F 74 16 129/76 99 12/01/20 07:00 80 145/76 96 12/01/20 06:19 97 12/01/20 06:00 80 109/63 93 L 12/01/20 05:00 77 117/68 94 L 12/01/20 04:00 97.3 F L 82 14 136/71 92 L 12/01/20 03:00 80 129/66 100 12/01/20 02:00 81 100 12/01/20 01:00 79 48 H 116/73 99 12/01/20 00:00 96.3 F L 78 15 112/63 99 11/30/20 23:09 78 11/30/20 23:00 78 11 L 112/63 100 11/30/20 22:04 94.3 F L 81 18 110/61 95 11/30/20 22:00 94.5 F L 80 16 110/61 93 L 11/30/20 21:48 96 11/30/20 21:30 93.6 F L 85 13 187/91 97 11/30/20 21:24 86 18 99 11/30/20 21:08 150/53 11/30/20 21:00 94.0 F L 83 18 100 11/30/20 20:00 83 18 120/45 100 11/30/20 19:00 82 18 138/52 100 11/30/20 18:47 93.4 F L 81 18 136/50 100 11/30/20 18:30 93.0 F L 81 18 131/49 100 11/30/20 18:15 93.0 F L 81 18 137/50 100 11/30/20 18:00 93.0 F L 80 18 127/47 100 11/30/20 17:45 93.2 F L 80 18 124/51 100 11/30/20 17:30 93.2 F L 71 18 119/60 100 11/30/20 17:15 93.2 F L 77 18 114/49 100 11/30/20 17:00 93.2 F L 79 18 115/45 100 11/30/20 16:45 92.5 F L 72 18 109/46 100 11/30/20 16:30 92.5 F L 75 18 112/43 100 11/30/20 16:15 92.1 F L 75 18 122/45 100 11/30/20 16:00 91.8 F L 73 18 114/44 100 11/30/20 15:49 91.8 F L 73 18 115/45 100 11/30/20 15:30 61 18 77/52 100 11/30/20 15:15 61 18 62/38 99 11/30/20 15:00 61 18 62/40 99 11/30/20 14:58 61 18 58/40 99 11/30/20 14:00 63 18 68/43 99 11/30/20 13:00 63 18 68/42 100 11/30/20 12:45 72 18 75/49 100 Intake and Output 11/30/20 12/01/20 12/01/20 22:59 06:59 14:59 Intake Total 002.598 2950.546 857.938 Output Total 175 370 270 Balance 942.128 3502.546 587.938 Intake: IV 200 1000 837 0.9ns for leslie 12 D5-0.45% NaCl with KCl 600 825 20Meq/l 1,000 ml @ 75 mls /hr IV .[id number] [facility] Rx#: [id number] Sodium Chloride 0.9% 1, 200 400 000 ml @ 200 mls/hr IV . Q5H [facility] Rx#:[id number] Intake, IV Titration 105.699 426.546 20.938 Amount D5-0.45% NaCl with KCl 300 20Meq/l 1,000 ml @ 75 mls /hr IV .[id number] [facility] Rx#: [id number] Insulin Regular 100 unit 73.749 126.546 20.938 In Sodium Chloride 0.9% 100 ml @ 0.1 UNITS/KG/HR 6.322 mls/hr IV .[id number] [facility] Rx#:[id number] Norepinephrine 32 mg In 31.950 Sodium Chloride 0.9% 218 ml @ 0.05 MCG/KG/MIN 1. 467 mls/hr IV .Q24H [facility] Rx#:[id number] Output: Urine 175 370 270 Other: Voiding Method Indwelling Catheter Indwelling Catheter Weight 62.596 kg 69.1 kg ABP, PAP, CO, CI - Last 8 Hours Arterial Blood Pressure 146/70 Arterial Blood Pressure 158/62 Arterial Blood Pressure 129/54 Arterial Blood Pressure 109/62 Arterial Blood Pressure 112/46 Arterial Blood Pressure 158/61 Arterial Blood Pressure 156/58 Arterial Blood Pressure 101/43 Results CBC & Chem 7: 12/01/20 04:00 12/01/20 08:20 Labs: Abnormal Lab Results - Last 24 Hours (Table) 11/30/20 11/30/20 11/30/20 Range/Units 11:31 13:33 13:54 RBC (3.80-5.40) m/uL Hgb (11.4-16.0) gm/dL Hct (34.0-46.0) % MCHC (31.0-37.0) g/dL RDW (11.5-15.5) % Neutrophils # (1.3-7.7) k/uL Lymphocytes # (1.0-4.8) k/uL Sodium 129 L (137-145) mmol/L Potassium 6.2 H* (3.5-5.1) mmol/L Chloride (98-107) mmol/L Carbon Dioxide 5 L* (22-30) mmol/L BUN 46 H (7-17) mg/dL Creatinine 2.11 H (0.52-1.04) mg/dL Glucose 785 H* (74-99) mg/dL POC Glucose (mg/dL) (75-99) mg/dL Plasma Lactic Acid Celestino (0.7-2.0) mmol/L Calcium (8.4-10.2) mg/dL Phosphorus (2.5-4.5) mg/dL Troponin I 0.457 H* (0.000-0.034) ng/mL Total Protein 5.5 L (6.3-8.2) g/dL Albumin 3.2 L (3.5-5.0) g/dL Urine Protein Trace H (Negative) Urine Glucose (UA) 4+ H (Negative) Urine Ketones 1+ H (Negative) 11/30/20 11/30/20 11/30/20 Range/Units 15:23 15:36 15:36 RBC (3.80-5.40) m/uL Hgb (11.4-16.0) gm/dL Hct (34.0-46.0) % MCHC (31.0-37.0) g/dL RDW (11.5-15.5) % Neutrophils # (1.3-7.7) k/uL Lymphocytes # (1.0-4.8) k/uL Sodium 133 L (137-145) mmol/L Potassium 5.4 H (3.5-5.1) mmol/L Chloride (98-107) mmol/L Carbon Dioxide 5 L* (22-30) mmol/L BUN (7-17) mg/dL Creatinine 2.15 H (0.52-1.04) mg/dL Glucose 724 H* (74-99) mg/dL POC Glucose (mg/dL) >600 H (75-99) mg/dL Plasma Lactic Acid Celestino 2.3 H* (0.7-2.0) mmol/L Calcium (8.4-10.2) mg/dL Phosphorus 6.4 H (2.5-4.5) mg/dL Troponin I (0.000-0.034) ng/mL Total Protein (6.3-8.2) g/dL Albumin (3.5-5.0) g/dL Urine Protein (Negative) Urine Glucose (UA) (Negative) Urine Ketones (Negative) 11/30/20 11/30/20 11/30/20 Range/Units 15:58 16:59 18:04 RBC (3.80-5.40) m/uL Hgb (11.4-16.0) gm/dL Hct (34.0-46.0) % MCHC (31.0-37.0) g/dL RDW (11.5-15.5) % Neutrophils # (1.3-7.7) k/uL Lymphocytes # (1.0-4.8) k/uL Sodium (137-145) mmol/L Potassium (3.5-5.1) mmol/L Chloride (98-107) mmol/L Carbon Dioxide (22-30) mmol/L BUN (7-17) mg/dL Creatinine (0.52-1.04) mg/dL Glucose (74-99) mg/dL POC Glucose (mg/dL) >600 H >600 H 569 H (75-99) mg/dL Plasma Lactic Acid Celestino (0.7-2.0) mmol/L Calcium (8.4-10.2) mg/dL Phosphorus (2.5-4.5) mg/dL Troponin I (0.000-0.034) ng/mL Total Protein (6.3-8.2) g/dL Albumin (3.5-5.0) g/dL Urine Protein (Negative) Urine Glucose (UA) (Negative) Urine Ketones (Negative) 11/30/20 11/30/20 11/30/20 Range/Units 18:22 19:15 20:01 RBC (3.80-5.40) m/uL Hgb (11.4-16.0) gm/dL Hct (34.0-46.0) % MCHC (31.0-37.0) g/dL RDW (11.5-15.5) % Neutrophils # (1.3-7.7) k/uL Lymphocytes # (1.0-4.8) k/uL Sodium (137-145) mmol/L Potassium (3.5-5.1) mmol/L Chloride (98-107) mmol/L Carbon Dioxide (22-30) mmol/L BUN (7-17) mg/dL Creatinine (0.52-1.04) mg/dL Glucose (74-99) mg/dL POC Glucose (mg/dL) >600 H 573 H (75-99) mg/dL Plasma Lactic Acid Celestino 2.5 H* (0.7-2.0) mmol/L Calcium (8.4-10.2) mg/dL Phosphorus (2.5-4.5) mg/dL Troponin I (0.000-0.034) ng/mL Total Protein (6.3-8.2) g/dL Albumin (3.5-5.0) g/dL Urine Protein (Negative) Urine Glucose (UA) (Negative) Urine Ketones (Negative) 11/30/20 11/30/20 11/30/20 Range/Units 20:22 21:00 21:22 RBC (3.80-5.40) m/uL Hgb (11.4-16.0) gm/dL Hct (34.0-46.0) % MCHC (31.0-37.0) g/dL RDW (11.5-15.5) % Neutrophils # (1.3-7.7) k/uL Lymphocytes # (1.0-4.8) k/uL Sodium 136 L (137-145) mmol/L Potassium (3.5-5.1) mmol/L Chloride (98-107) mmol/L Carbon Dioxide 9 L* (22-30) mmol/L BUN (7-17) mg/dL Creatinine 2.11 H (0.52-1.04) mg/dL Glucose 545 H* (74-99) mg/dL POC Glucose (mg/dL) 547 H 440 H (75-99) mg/dL Plasma Lactic Acid Celestino (0.7-2.0) mmol/L Calcium (8.4-10.2) mg/dL Phosphorus 5.1 H (2.5-4.5) mg/dL Troponin I (0.000-0.034) ng/mL Total Protein (6.3-8.2) g/dL Albumin (3.5-5.0) g/dL Urine Protein (Negative) Urine Glucose (UA) (Negative) Urine Ketones (Negative) 11/30/20 11/30/20 11/30/20 Range/Units 22:25 22:25 23:08 RBC (3.80-5.40) m/uL Hgb (11.4-16.0) gm/dL Hct (34.0-46.0) % MCHC (31.0-37.0) g/dL RDW (11.5-15.5) % Neutrophils # (1.3-7.7) k/uL Lymphocytes # (1.0-4.8) k/uL Sodium (137-145) mmol/L Potassium (3.5-5.1) mmol/L Chloride (98-107) mmol/L Carbon Dioxide (22-30) mmol/L BUN (7-17) mg/dL Creatinine (0.52-1.04) mg/dL Glucose (74-99) mg/dL POC Glucose (mg/dL) 421 H 383 H (75-99) mg/dL Plasma Lactic Acid Celestino 4.3 H* (0.7-2.0) mmol/L Calcium (8.4-10.2) mg/dL Phosphorus (2.5-4.5) mg/dL Troponin I (0.000-0.034) ng/mL Total Protein (6.3-8.2) g/dL Albumin (3.5-5.0) g/dL Urine Protein (Negative) Urine Glucose (UA) (Negative) Urine Ketones (Negative) 12/01/20 12/01/20 12/01/20 Range/Units 00:00 00:05 01:10 RBC (3.80-5.40) m/uL Hgb (11.4-16.0) gm/dL Hct (34.0-46.0) % MCHC (31.0-37.0) g/dL RDW (11.5-15.5) % Neutrophils # (1.3-7.7) k/uL Lymphocytes # (1.0-4.8) k/uL Sodium 136 L (137-145) mmol/L Potassium (3.5-5.1) mmol/L Chloride 110 H (98-107) mmol/L Carbon Dioxide 13 L (22-30) mmol/L BUN 44 H (7-17) mg/dL Creatinine 1.91 H (0.52-1.04) mg/dL Glucose 342 H (74-99) mg/dL POC Glucose (mg/dL) 353 H 307 H (75-99) mg/dL Plasma Lactic Acid Celestino (0.7-2.0) mmol/L Calcium (8.4-10.2) mg/dL Phosphorus (2.5-4.5) mg/dL Troponin I (0.000-0.034) ng/mL Total Protein (6.3-8.2) g/dL Albumin (3.5-5.0) g/dL Urine Protein (Negative) Urine Glucose (UA) (Negative) Urine Ketones (Negative) 12/01/20 12/01/20 12/01/20 Range/Units 01:38 02:39 04:00 RBC (3.80-5.40) m/uL Hgb (11.4-16.0) gm/dL Hct (34.0-46.0) % MCHC (31.0-37.0) g/dL RDW (11.5-15.5) % Neutrophils # (1.3-7.7) k/uL Lymphocytes # (1.0-4.8) k/uL Sodium (137-145) mmol/L Potassium (3.5-5.1) mmol/L Chloride 112 H (98-107) mmol/L Carbon Dioxide 17 L (22-30) mmol/L BUN 42 H (7-17) mg/dL Creatinine 1.70 H (0.52-1.04) mg/dL Glucose 231 H (74-99) mg/dL POC Glucose (mg/dL) 293 H 272 H (75-99) mg/dL Plasma Lactic Acid Celestino (0.7-2.0) mmol/L Calcium 7.9 L (8.4-10.2) mg/dL Phosphorus (2.5-4.5) mg/dL Troponin I (0.000-0.034) ng/mL Total Protein (6.3-8.2) g/dL Albumin (3.5-5.0) g/dL Urine Protein (Negative) Urine Glucose (UA) (Negative) Urine Ketones (Negative) 12/01/20 12/01/20 12/01/20 Range/Units 04:00 04:05 05:03 RBC 3.46 L (3.80-5.40) m/uL Hgb 9.4 L D (11.4-16.0) gm/dL Hct 30.9 L (34.0-46.0) % MCHC 30.5 L (31.0-37.0) g/dL RDW 15.9 H (11.5-15.5) % Neutrophils # 9.6 H (1.3-7.7) k/uL Lymphocytes # 0.4 L (1.0-4.8) k/uL Sodium (137-145) mmol/L Potassium (3.5-5.1) mmol/L Chloride (98-107) mmol/L Carbon Dioxide (22-30) mmol/L BUN (7-17) mg/dL Creatinine (0.52-1.04) mg/dL Glucose (74-99) mg/dL POC Glucose (mg/dL) 238 H 189 H (75-99) mg/dL Plasma Lactic Acid Celestino (0.7-2.0) mmol/L Calcium (8.4-10.2) mg/dL Phosphorus (2.5-4.5) mg/dL Troponin I (0.000-0.034) ng/mL Total Protein (6.3-8.2) g/dL Albumin (3.5-5.0) g/dL Urine Protein (Negative) Urine Glucose (UA) (Negative) Urine Ketones (Negative) 12/01/20 12/01/20 12/01/20 Range/Units 05:37 06:07 06:37 RBC (3.80-5.40) m/uL Hgb (11.4-16.0) gm/dL Hct (34.0-46.0) % MCHC (31.0-37.0) g/dL RDW (11.5-15.5) % Neutrophils # (1.3-7.7) k/uL Lymphocytes # (1.0-4.8) k/uL Sodium (137-145) mmol/L Potassium (3.5-5.1) mmol/L Chloride (98-107) mmol/L Carbon Dioxide (22-30) mmol/L BUN (7-17) mg/dL Creatinine (0.52-1.04) mg/dL Glucose (74-99) mg/dL POC Glucose (mg/dL) 208 H 195 H 151 H (75-99) mg/dL Plasma Lactic Acid Celestino (0.7-2.0) mmol/L Calcium (8.4-10.2) mg/dL Phosphorus (2.5-4.5) mg/dL Troponin I (0.000-0.034) ng/mL Total Protein (6.3-8.2) g/dL Albumin (3.5-5.0) g/dL Urine Protein (Negative) Urine Glucose (UA) (Negative) Urine Ketones (Negative) 12/01/20 12/01/20 12/01/20 Range/Units 07:00 08:20 08:31 RBC (3.80-5.40) m/uL Hgb (11.4-16.0) gm/dL Hct (34.0-46.0) % MCHC (31.0-37.0) g/dL RDW (11.5-15.5) % Neutrophils # (1.3-7.7) k/uL Lymphocytes # (1.0-4.8) k/uL Sodium (137-145) mmol/L Potassium (3.5-5.1) mmol/L Chloride 113 H (98-107) mmol/L Carbon Dioxide 20 L (22-30) mmol/L BUN 42 H (7-17) mg/dL Creatinine 1.50 H (0.52-1.04) mg/dL Glucose 122 H (74-99) mg/dL POC Glucose (mg/dL) 159 H 120 H (75-99) mg/dL Plasma Lactic Acid Celestino (0.7-2.0) mmol/L Calcium (8.4-10.2) mg/dL Phosphorus 2.4 L (2.5-4.5) mg/dL Troponin I (0.000-0.034) ng/mL Total Protein (6.3-8.2) g/dL Albumin (3.5-5.0) g/dL Urine Protein (Negative) Urine Glucose (UA) (Negative) Urine Ketones (Negative) 12/01/20 Range/Units 12:05 RBC (3.80-5.40) m/uL Hgb (11.4-16.0) gm/dL Hct (34.0-46.0) % MCHC (31.0-37.0) g/dL RDW (11.5-15.5) % Neutrophils # (1.3-7.7) k/uL Lymphocytes # (1.0-4.8) k/uL Sodium (137-145) mmol/L Potassium (3.5-5.1) mmol/L Chloride (98-107) mmol/L Carbon Dioxide (22-30) mmol/L BUN (7-17) mg/dL Creatinine (0.52-1.04) mg/dL Glucose (74-99) mg/dL POC Glucose (mg/dL) 151 H (75-99) mg/dL Plasma Lactic Acid Celestino (0.7-2.0) mmol/L Calcium (8.4-10.2) mg/dL Phosphorus (2.5-4.5) mg/dL Troponin I (0.000-0.034) ng/mL Total Protein (6.3-8.2) g/dL Albumin (3.5-5.0) g/dL Urine Protein (Negative) Urine Glucose (UA) (Negative) Urine Ketones (Negative) Thrombosis Risk Factor Assmnt - Choose All That Apply Each Risk Factor Represents 3 Points: History of DVT/PE Thrombosis Risk Factor Assessment Total Risk Factor Score: 3 Thrombosis Risk Factor Assessment Level: Moderate Risk
[2020-12-01 16:51] LABS: Glucose,Whole Blood 165 mg/dL (75-99)
[2020-12-01 20:38] LABS: Glucose,Whole Blood 131 mg/dL (75-99)
[2020-12-01] MEDS: lisinopriL 20 MG TAB PO SCH (20:43)
[2020-12-01] MEDS ORDERED: INSULIN DETEMIR (LEVEMIR) 100 UNIT/ML SYR SQ SCH (21:00)
[2020-12-02 01:59] LABS: Glucose,Whole Blood 50 mg/dL (75-99)
[2020-12-02 02:16] LABS: Glucose,Whole Blood 38 mg/dL (75-99)
[2020-12-02 02:16] LABS: Glucose,Whole Blood 43 mg/dL (75-99)
[2020-12-02 02:37] LABS: Glucose,Whole Blood 78 mg/dL (75-99)
[2020-12-02] MEDS: D5-0.45% NACL WITH KCL 20MEQ/L 1,000 ML IV SCH (03:37)
[2020-12-02 03:51] LABS: Glucose,Whole Blood 161 mg/dL (75-99)
[2020-12-02 04:29] LABS: Basophils % (A) 0 %; Eosinophils % (A) 0 %; HCT 33.5 % (34.0-46.0); HGB 10.2 gm/dL (11.4-16.0); Lymphocytes % (A) 10 %; MCH 27.2 pg (25.0-35.0); MCHC 30.5 g/dL (31.0-37.0); MCV 89.2 fL (80.0-100.0); Mean Platelet Volume 9.7; Monocytes # (A) 0.5 k/uL (0-1.0); Monocytes % (A) 4 %; Neutrophils # (A) 9.3 k/uL (1.3-7.7); Neutrophils % (A) 85 %; Platelet Count 155 k/uL (150-450); RBC 3.76 m/uL (3.80-5.40); RDW 15.9 % (11.5-15.5)
[2020-12-02 04:36] LABS: Albumin 2.2 g/dL (3.5-5.0); Calcium 8.2 mg/dL (8.4-10.2); Potassium 4.3 mmol/L (3.5-5.1); Total Bilirubin 0.2 mg/dL (0.2-1.3); Total Protein 4.7 g/dL (6.3-8.2)
[2020-12-02 07:05] LABS: Glucose,Whole Blood 118 mg/dL (75-99)
[2020-12-02] MEDS: INSULIN ASPART (NovoLOG) 100 UNIT/ML VIAL SQ SCH ×4 (07:06→21:03)
[2020-12-02] MEDS: carvediloL 12.5 MG TAB PO SCH ×2 (07:06→17:01)
[2020-12-02] MEDS ORDERED: hydrALAZINE HCL 50 MG TAB PO SCH (09:00)
--- NOTE | 2020-12-02 10:16 | P.PN ---
Subjective Progress Note Date: 12/02/20 This is a 70-year-old -[place] female patient with multiple comorbidities including coronary artery disease, previous PCI involving the PDA and RCA in addition to previous history of DVT of the lower extremity, diabetes mellitus type I, hypertension who was brought into the hospital on 11/30/2020 f or chief complaint of weakness. Patient was brought into the hospital by EMS. Patient was recently hospitalized from 11/27/2020 through 11/28/2020 with hyperglycemia, borderline DKA. Patient was discharged home on 11/28/2020. Patient had a recent change in her treatment, and lately had uncontrolled blood sugars. EMS was alerted by the patient's granddaughter. Patient was found to have low blood pressure was systolic in the 80s and later blood sugar greater than 600 when the EMS arrived. Patient was given 1.5 L in fluid boluses by EMS. Patient's venous blood gas in the ER showed pH of 7.1 with a bicarb of 7 and pCO2 of 20. Serum sodium was 129, potassium is 6.2, bicarbonate concentration was 5. BUN was 46, creatinine was 2.11, glucose was 785, LFTs were within normal limits, urinalysis showed 4+ glucose and 1+ ketones, serum acetone was positive, CT showed white blood cell count of 4.2, hemoglobin of 11.3. Correlation profile was unremarkable. Patient was started on insulin infusion per DKA protocol, she was given additional fluid volume in the emergency department. Brain CT was completed in view of altered mental status and showed age-related atrophic and chronic small vessel ischemic changes without acute intracranial process. CT of the chest, abdomen and pelvis showed possibly a small amount of air anterior to the heart bilateral pleural effusions and bilateral lateral basilar infiltrates, cardiomegaly, severely limited assessment of the abdomen, bowel gas pattern nonspecific, small amount of peritoneal fluid. EEG showed normal sinus rhythm. Patient remains hypotensive in the emergency department currently blood pressure is as low as 58/40, central line will be placed, so far she has received a total of 6 L and IV fluids. Norepinephrine has been started for blood pressure support. Her pulse ox is 99%, patient is afebrile. Repeat BMP is pending at this time, patient is awaiting admission to the intensive care unit On 12/01/2020 patient seen in follow-up in the intensive care unit, she is a bit more awake, more responsive, she is still a bit confused, she keeps repeating herself, but does not appear to be in any acute distress, breathing comfortably, she is currently on 4 L of oxygen with a pulse ox of 95-97%, hemodynamically she is stable, levo fed has been on hold since last night, she has had no fever or chills. Lung sounds are clear, with some mild bibasilar crackles, no coughing or wheezing. Insulin infusion is currently on hold, last 2 blood sugars were 99 and 98 at 0900 [id number] AM. Morning's blood work has been reviewed, anion gap has closed, and is currently 4, sodium is 137, potassium is 3.8, chloride is 113, CO2 is up to 20, renal profile has improved and BUN is 42 and creatinine is down to 1.5. No nausea or vomiting, no diarrhea, abdomen is soft. Patient has not had anything to eat or drink yet, she states she does not feel hungry. CBC was also reviewed showing white blood cell, 10.5, hemoglobin is 9.4. Patient continues on maintenance IV fluids with D5 half-normal saline with 20 of potassium running at 150 ML per hour. Urine output is 30-50 ML per hour. Has had no acute events overnight. On today's evaluation on 12/02/2020 patient seen in follow-up in the intensive care unit, patient has been awaiting a bed on the medical surgical floor for the past 24 hours. She has remained stable at 24 hours, she has been weaned off insulin infusion, she is currently on 12 units of Levemir in the morning, and Humalog sliding scale, she has tolerated clear liquid diet, she's had no nausea vomiting or diarrhea, abdomen is soft, nontender. Mentation is much improved, she is awake and alert, oriented 3. Her blood sugar this morning is 161. Her blood cultures have been negative, no clear evidence of urinary tract infection on the urinalysis, Rocephin will be discontinued. The rest of her labs have b een reviewed today white blood cell count of 11, hemoglobin of 10.2, sodium is 135, potassium is 4.3, chloride is 112, her anion gap today is 5, CO2 is 18, BUN is 30, creatinine is 1.1, Wilson catheter is in place, patient is producing adequate amount of urine in the order of 40-100 ML per hour. Objective - Vital Signs Vital signs: Vital Signs Temp 98.3 F 12/02/20 04:00 Pulse 74 12/02/20 07:00 Resp 14 12/02/20 07:00 BP 160/83 12/02/20 06:00 Pulse Ox 95 12/02/20 07:00 Intake & Output 12/01/20 12/02/20 12/02/20 18:59 06:59 18:59 Intake Total 1525.938 676 72 Output Total 480 470 305 Balance 1045.938 206 -233 Weight 69.1 kg 70.2 kg Intake: IV 1305 426 72 0.9 60 0.9ns for leslie 30 36 12 D5-0.45% NaCl with KCl 1275 150 20Meq/l 1,000 ml @ 75 mls /hr IV .[id number] [facility] Rx#: [id number] Sodium Chloride 0.9% 1, 140 000 ml @ 200 mls/hr IV . Q5H [facility] Rx#:[id number] cefTRIAXone 1 gm In 100 Sodium Chloride 0.9% 50 ml @ 100 mls/hr IVPB Q24H [facility] Rx#:[id number] Intake, IV Titration 20.938 Amount Insulin Regular 100 unit 20.938 In Sodium Chloride 0.9% 100 ml @ 0.1 UNITS/KG/HR 6.322 mls/hr IV .[id number] [facility] Rx#:[id number] Oral 200 250 Output: Urine 480 470 305 Other: Voiding Method Indwelling Catheter Indwelling Catheter ABP, PAP, CO, CI - Last Documented Arterial Blood Pressure 173/84 - Exam GENERAL EXAM: Awake and alert, oriented 3 70-year-old -[place] female, on room air, comfortable in no apparent distress. HEAD: Normocephalic/atraumatic. EYES: Normal reaction of pupils, equal size. Conjunctiva pink, sclera white. NOSE: Clear with pink turbinates. THROAT: No erythema or exudates. NECK: No masses, no JVD, no thyroid enlargement, no adenopathy. CHEST: No chest wall deformity. Symmetrical expansion. LUNGS: Equal air entry with no crackles, wheeze, rhonchi or dullness. CVS: Regular rate and rhythm, normal S1 and S2, no gallops, no murmurs, no rubs ABDOMEN: Soft, nontender. No hepatosplenomegaly, normal bowel sounds, no guarding or rigidity. EXTREMITIES: No clubbing, no edema, no cyanosis, 2+ pulses and upper and lower extremities. MUSCULOSKELETAL: Muscle strength and tone normal. SPINE: No scoliosis or deformity SKIN: No rashes CENTRAL NERVOUS SYSTEM: Awake and alert, oriented 3 No focal deficits, tone is normal in all 4 extremities. - Labs CBC & Chem 7: 12/02/20 04:00 12/02/20 04:00 Labs: Abnormal Lab Results - Last 24 Hours (Table) 12/01/20 12/01/20 12/01/20 Range/Units 12:05 16:49 20:37 WBC (3.8-10.6) k/uL RBC (3.80-5.40) m/uL Hgb (11.4-16.0) gm/dL Hct (34.0-46.0) % MCHC (31.0-37.0) g/dL RDW (11.5-15.5) % Neutrophils # (1.3-7.7) k/uL Sodium (137-145) mmol/L Chloride (98-107) mmol/L Carbon Dioxide (22-30) mmol/L BUN (7-17) mg/dL Creatinine (0.52-1.04) mg/dL Glucose (74-99) mg/dL POC Glucose (mg/dL) 151 H 165 H 131 H (75-99) mg/dL Calcium (8.4-10.2) mg/dL Total Protein (6.3-8.2) g/dL Albumin (3.5-5.0) g/dL 12/02/20 12/02/20 12/02/20 Range/Units 01:57 02:12 02:14 WBC (3.8-10.6) k/uL RBC (3.80-5.40) m/uL Hgb (11.4-16.0) gm/dL Hct (34.0-46.0) % MCHC (31.0-37.0) g/dL RDW (11.5-15.5) % Neutrophils # (1.3-7.7) k/uL Sodium (137-145) mmol/L Chloride (98-107) mmol/L Carbon Dioxide (22-30) mmol/L BUN (7-17) mg/dL Creatinine (0.52-1.04) mg/dL Glucose (74-99) mg/dL POC Glucose (mg/dL) 50 L 38 L 43 L (75-99) mg/dL Calcium (8.4-10.2) mg/dL Total Protein (6.3-8.2) g/dL Albumin (3.5-5.0) g/dL 12/02/20 12/02/20 12/02/20 Range/Units 03:49 04:00 04:00 WBC 11.0 H (3.8-10.6) k/uL RBC 3.76 L (3.80-5.40) m/uL Hgb 10.2 L (11.4-16.0) gm/dL Hct 33.5 L (34.0-46.0) % MCHC 30.5 L (31.0-37.0) g/dL RDW 15.9 H (11.5-15.5) % Neutrophils # 9.3 H (1.3-7.7) k/uL Sodium 135 L (137-145) mmol/L Chloride 112 H (98-107) mmol/L Carbon Dioxide 18 L (22-30) mmol/L BUN 30 H (7-17) mg/dL Creatinine 1.10 H (0.52-1.04) mg/dL Glucose 161 H (74-99) mg/dL POC Glucose (mg/dL) 161 H (75-99) mg/dL Calcium 8.2 L (8.4-10.2) mg/dL Total Protein 4.7 L (6.3-8.2) g/dL Albumin 2.2 L (3.5-5.0) g/dL 12/02/20 Range/Units 07:04 WBC (3.8-10.6) k/uL RBC (3.80-5.40) m/uL Hgb (11.4-16.0) gm/dL Hct (34.0-46.0) % MCHC (31.0-37.0) g/dL RDW (11.5-15.5) % Neutrophils # (1.3-7.7) k/uL Sodium (137-145) mmol/L Chloride (98-107) mmol/L Carbon Dioxide (22-30) mmol/L BUN (7-17) mg/dL Creatinine (0.52-1.04) mg/dL Glucose (74-99) mg/dL POC Glucose (mg/dL) 118 H (75-99) mg/dL Calcium (8.4-10.2) mg/dL Total Protein (6.3-8.2) g/dL Albumin (3.5-5.0) g/dL Microbiology - Last 24 Hours (Table) 12/01/20 00:30 Blood Culture - Preliminary Blood No Growth after 24 hours 11/30/20 15:36 Blood Culture - Preliminary Blood No Growth after 24 hours Assessment and Plan Plan: Assessment: #1. Acute diabetic ketoacidosis, improved, and anion gap has closed on today's labs #2. Hypotension related to severe dehydration, patient was fluid resuscitated with a total of 6 L and IV fluid boluses, and has been started on norepinephrine. Resolved, and patient is off the vasopressor support #3. Recent hospitalization for hyperglycemia, and diabetic ketoacidosis, discharged home on 11/28/2020 #4. Acute kidney injury, improved #5. Hyperkalemia, hyponatremia due to severe dehydration #7. Anion gap metabolic acidosis related to DKA, resolved #8. Diabetes mellitus type 1, with diabetic neuropathy previous episodes of DKA #9. Coronary artery disease #10. Hypertension #11. Hyperlipidemia #12. Lifetime nonsmoker #13. Previous episode of DVT #14. Osteoarthritis #15. Chronic low back pain #16. Previous episode of pneumothorax in the remote past Plan: Clinically patient has remained stable, mentation has improved, she is much more awake and alert, and responsive today Today's labs have been reviewed, Anion gap remains closed, both eyes improving There is no clear evidence of urinary tract infection, we'll discontinue Rocephin DC IV fluids, patient is tolerating oral diet, advance diet Patient continues on combination of Levemir and sliding scale Humalog Discontinue Wilson catheter, increase activity as tolerated Stable for transfer out of intensive care unit today to medical surgical floor without telemetry. I performed a history & physical examination of the patient and discussed their management with my nurse practitioner, Kiesha Santiago. I reviewed the nurse practitioner's note and agree with the documented findings and plan of care. Lung sounds are positive for diminished breath sounds throughout the lung pretty. The findings and the impression was discussed with the patient. I attest to the documentation by the nurse practitioner. Time with Patient: Less than 30
[2020-12-02] MEDS: SENNOSIDES-DOCUSATE SODIUM 1 EACH TAB PO SCH (10:19)
[2020-12-02] MEDS: lisinopriL 20 MG TAB PO SCH ×2 (10:19→21:04)
[2020-12-02] MEDS: ENOXAPARIN 40 MG/0.4 ML SYRINGE SQ SCH (10:20)
[2020-12-02] MEDS: PANTOPRAZOLE 40 MG TABLET PO SCH (10:20)
[2020-12-02] MEDS: hydrALAZINE HCL 50 MG TAB PO SCH ×3 (10:20→21:04)
[2020-12-02 12:41] LABS: Glucose,Whole Blood 191 mg/dL (75-99)
--- NOTE | 2020-12-02 13:30 | P.PN ---
Subjective Progress Note Date: 12/02/20 HISTORY OF PRESENT ILLNESS: This is a 70 -year-old -[place] female with a previous medical history significant for hypertension and hypertensive cardiovascular disease, hyperlipidemia, diabetes mellitus type 1 with diabetic polyneuropathy, PAD, CAD post PCI in 2010 ,history of narcolepsy, history of osteoarthritis. Patient has had multiple admissions to both [facility] and [facility] for DKA. Her most recent hospitalization was 11/1709/. Patient states that she went home and she took her nighttime insulin but in the morning on the following afternoon it seems that she did not take any insulin as would normally be scheduled. She then developed vomiting, no diarrhea. She denies any shortness of breath. She had significant weakness and came in the hospital for further evaluation and route, patient was found to have systolic blood pressure in the 80s and was given 1/2 L of IV fluids. When patient arrived to the emergency center glucose was 785, acetone positive. Blood gas revealed pH 7.1 with bicarb 7 and pCO2 20. Serum sodium was 129, potassium 6.2, bicarbonate concentration 5. BUN 46, creatinine 2.11, LFTs were within normal limits, urinalysis showed 4+ glucose and 1+ ketones. WBC 4.2, hemoglobin 11.3. Correlation profile was unremarkable. Patient was started on insulin infusion per DKA protocol, she was given additional fluid volume in the emergency department. CT of the brain revealed age-related atrophic and chronic small vessel ischemic changes without acute intracranial process. CT of the chest, abdomen and pelvis showed possibly a small amount of air anterior to the heart bilateral pleural effusions and bilateral lateral basilar infiltrates, cardiomegaly, severely limited assessment of the abdomen, bowel gas pattern nonspecific, small amount of peritoneal fluid. Echocardiogram revealed EF of 55-60% with moderate concentric left hypertrophy, mild mitral regurgitation, moderate tricuspid regurgitation, mild pulmonary hypertension. Temperature was 91.8, heart rate in the 70s, blood pressure 58/40, pulse ox 99% on 2 L. EKG showed normal sinus rhythm. Patient was started on Norepinephrine and Ty Hugger applied, seen by agricultural engineer and admitted to the intensive care unit. Patient is seen today in the intensive care unit. 12/02: Patient's temperature is normalized running 98, she is no longer requiring Ty hugger. Heart rate in the 70s, blood pressure 160/83, pulse ox 95% on 4 L nasal cannula. Repeat blood work reveals WBC 11, hemoglobin 10.2, platelet count 155. Sodium 135, potassium 4.3, chloride 112, CO2 18, anion gap 5, BUN 30 creatinine 1.1. Blood sugars have been labile and patient had a reading of 38 at 2 AM, currently 118 at 7 AM. Blood cultures are no growth after 24 hours 2 specimens. Patient is off insulin drip. Yesterday, patient was given Levemir 14 units at bedtime this will be changed to 12 units which is her home dose. She is eating regular CC diet. She will also be resumed on hydralazine at home dose of 100mg am, 50 mg noon, 100 mg evening. Patient will be transferred to the cardiac stepdown unit. She has had good urine output, Wilson catheter may be removed. REVIEW OF SYSTEMS: Constitutional: No documented fever, reported chills, no night sweats. No weight change. Reported weakness, Reported fatigue. Reported daytime sleepiness. HEENT: No headache. No blurred vision or double vision, no loss of vision. No loss of Hearing, no ringing in the ears, no dizziness. No nasal drainage or congestion. No epistaxis. No sore throat. Lungs: No shortness of breath, no cough, no sputum production. No wheezing. Reports dyspnea with activity. Cardiovascular: No chest pain, no lower extremity edema. No palpitations. No paroxysmal nocturnal dyspnea. No orthopnea. No lightheadedness or dizziness. No syncopal episodes. Abdominal: Reports no abdominal pain. No nausea, vomiting. No diarrhea. No constipation. No bloody or tarry stools. Reported loss of appetite. Genitourinary: No dysuria, increased frequency, urgency. No urinary retention- Wilson. Musculoskeletal: No myalgias. Reported muscle weakness. Integumentary: No wounds, no rash or pruritus. No unusual bruising. Neurologic: No aphasia. No facial droop. No change in mentation. No head injury. No headache. No paralysis. No paresthesia. Psychiatric: Reported depression. Reported anxiety no mood swings. Endocrine: Fluctuation of abnormal blood glucose levels. PHYSICAL EXAMINATION: General: 70-year-old -[place] female laying down in bed no acute distr ess . HEENT: Head is atraumatic, normocephalic, pupils were equal round reactive to light and recommendation, extraocular muscle movement were intact, sclera nonicteric, conjunctivae were pale, mucous membranes of the mouth are somewhat dry. Neck: Supple, no JVP, normal carotid upstroke bilaterally, no lymphadenopathy. Chest: Decreased breath sounds at the bases, few rhonchi, no extremity wheezes, no chest wall tenderness, no intercostal retractions. Heart: First heart sound is normal, second heart sounds normal there is systolic ejection murmur 2/6 located in the left sternal border. Abdomen: Soft, nontender, nondistended, positive bowel sounds. Extremities: There is generalized edema calf tenderness DP +1 bilaterally. Neurologic examination: Patient is awake alert and oriented x3, cranial nerves II-12 appear grossly intact. ASSESSMENT AND PLAN: 1. Diabetic ketoacidosis. Continue DKA protocol. Patient transitioned to Levemir/ Toujeo 12 units at bedtime, Humalog before meals and at bedtime, now scheduled Humalog at this time. Continue consistent carb diet. 2. Hypovolemic shock, resolved. Patient is status post 6 L of IV fluid and required norepinephrine, Ty Hugger for hypothermia. 3. Acute kidney injury, resolved. Continue to monitor, avoid nephrotoxic agent s. 4. Hyperkalemia secondary to acute kidney injury, resolved. 5. Hyponatremia secondary to DKA/hyperglycemia, resolved. 6. Diabetes mellitus type 1 with diabetic polyneuropathy. Continue planned in 1. 7. Hypertension and hypertensive cardio vascular disease. patient is off norepinephrine and has been resumed on lisinopril 20 mg twice daily, Coreg 12.5 mg twice daily and hydralazine 100 mg twice daily and 50 mg at noon 8. Hyperlipidemia. Patient is not currently on statin. 9. CAD post-PCI in 2010. Continue Coreg 12.5 mg orally twice every day. 10. History of PAD with a recent callus of the right foot. Appears to be stable. 11. History of narcolepsy never treated. 12. DVT prophylaxis. Continue Lovenox 40 mg daily. 13. GI prophylaxis. Continue Protonix 40 mg po every 24 hours. 14. Patient is full code. DISCHARGE PLAN: Home Impression and plan of care have been directed as dictated by the signing physician. Faith Camarillo nurse practitioner acting as scribe for signing physician. Objective - Vital Signs Vital signs: Vital Signs Temp 98.3 F 12/02/20 04:00 Pulse 74 12/02/20 07:00 Resp 14 12/02/20 07:00 BP 160/83 12/02/20 06:00 Pulse Ox 95 12/02/20 07:00 Intake & Output 12/01/20 12/02/20 12/02/20 18:59 06:59 18:59 Intake Total 1525.938 676 3 Output Total 480 470 30 Balance 1045.938 206 -27 Weight 69.1 kg 70.2 kg Intake: IV 1305 426 3 0.9ns for leslie 30 36 3 D5-0.45% NaCl with KCl 1275 150 20Meq/l 1,000 ml @ 75 mls /hr IV .[id number] [facility] Rx#: [id number] Sodium Chloride 0.9% 1, 140 000 ml @ 200 mls/hr IV . Q5H [facility] Rx#:[id number] cefTRIAXone 1 gm In 100 Sodium Chloride 0.9% 50 ml @ 100 mls/hr IVPB Q24H [facility] Rx#:[id number] Intake, IV Titration 20.938 Amount Insulin Regular 100 unit 20.938 In Sodium Chloride 0.9% 100 ml @ 0.1 UNITS/KG/HR 6.322 mls/hr IV .[id number] [facility] Rx#:[id number] Oral 200 250 Output: Urine 480 470 30 Other: Voiding Method Indwelling Catheter Indwelling Catheter ABP, PAP, CO, CI - Last Documented Arterial Blood Pressure 173/84 - Labs CBC & Chem 7: 12/02/20 04:00 12/02/20 04:00 Labs: Abnormal Lab Results - Last 24 Hours (Table) 12/01/20 12/01/20 12/01/20 Range/Units 08:20 08:31 12:05 WBC (3.8-10.6) k/uL RBC (3.80-5.40) m/uL Hgb (11.4-16.0) gm/dL Hct (34.0-46.0) % MCHC (31.0-37.0) g/dL RDW (11.5-15.5) % Neutrophils # (1.3-7.7) k/uL Sodium (137-145) mmol/L Chloride 113 H (98-107) mmol/L Carbon Dioxide 20 L (22-30) mmol/L BUN 42 H (7-17) mg/dL Creatinine 1.50 H (0.52-1.04) mg/dL Glucose 122 H (74-99) mg/dL POC Glucose (mg/dL) 120 H 151 H (75-99) mg/dL Calcium (8.4-10.2) mg/dL Phosphorus 2.4 L (2.5-4.5) mg/dL Total Protein (6.3-8.2) g/dL Albumin (3.5-5.0) g/dL 12/01/20 12/01/20 12/02/20 Range/Units 16:49 20:37 01:57 WBC (3.8-10.6) k/uL RBC (3.80-5.40) m/uL Hgb (11.4-16.0) gm/dL Hct (34.0-46.0) % MCHC (31.0-37.0) g/dL RDW (11.5-15.5) % Neutrophils # (1.3-7.7) k/uL Sodium (137-145) mmol/L Chloride (98-107) mmol/L Carbon Dioxide (22-30) mmol/L BUN (7-17) mg/dL Creatinine (0.52-1.04) mg/dL Glucose (74-99) mg/dL POC Glucose (mg/dL) 165 H 131 H 50 L (75-99) mg/dL Calcium (8.4-10.2) mg/dL Phosphorus (2.5-4.5) mg/dL Total Protein (6.3-8.2) g/dL Albumin (3.5-5.0) g/dL 12/02/20 12/02/20 12/02/20 Range/Units 02:12 02:14 03:49 WBC (3.8-10.6) k/uL RBC (3.80-5.40) m/uL Hgb (11.4-16.0) gm/dL Hct (34.0-46.0) % MCHC (31.0-37.0) g/dL RDW (11.5-15.5) % Neutrophils # (1.3-7.7) k/uL Sodium (137-145) mmol/L Chloride (98-107) mmol/L Carbon Dioxide (22-30) mmol/L BUN (7-17) mg/dL Creatinine (0.52-1.04) mg/dL Glucose (74-99) mg/dL POC Glucose (mg/dL) 38 L 43 L 161 H (75-99) mg/dL Calcium (8.4-10.2) mg/dL Phosphorus (2.5-4.5) mg/dL Total Protein (6.3-8.2) g/dL Albumin (3.5-5.0) g/dL 12/02/20 12/02/20 12/02/20 Range/Units 04:00 04:00 07:04 WBC 11.0 H (3.8-10.6) k/uL RBC 3.76 L (3.80-5.40) m/uL Hgb 10.2 L (11.4-16.0) gm/dL Hct 33.5 L (34.0-46.0) % MCHC 30.5 L (31.0-37.0) g/dL RDW 15.9 H (11.5-15.5) % Neutrophils # 9.3 H (1.3-7.7) k/uL Sodium 135 L (137-145) mmol/L Chloride 112 H (98-107) mmol/L Carbon Dioxide 18 L (22-30) mmol/L BUN 30 H (7-17) mg/dL Creatinine 1.10 H (0.52-1.04) mg/dL Glucose 161 H (74-99) mg/dL POC Glucose (mg/dL) 118 H (75-99) mg/dL Calcium 8.2 L (8.4-10.2) mg/dL Phosphorus (2.5-4.5) mg/dL Total Protein 4.7 L (6.3-8.2) g/dL Albumin 2.2 L (3.5-5.0) g/dL Microbiology - Last 24 Hours (Table) 12/01/20 00:30 Blood Culture - Preliminary Blood No Growth after 24 hours 11/30/20 15:36 Blood Culture - Preliminary Blood No Growth after 24 hours
[2020-12-02 16:55] LABS: Glucose,Whole Blood 166 mg/dL (75-99)
[2020-12-02] MEDS ORDERED: INSULIN DETEMIR (LEVEMIR) 100 UNIT/ML SYR SQ SCH (21:00)
[2020-12-02 21:02] LABS: Glucose,Whole Blood 219 mg/dL (75-99)
[2020-12-02 21:10] VITALS: RESP 16
[2020-12-03 03:09] LABS: Glucose,Whole Blood 71 mg/dL (75-99)
[2020-12-03 03:16] LABS: Glucose,Whole Blood 76 mg/dL (75-99)
[2020-12-03 03:49] LABS: Glucose,Whole Blood 88 mg/dL (75-99)
[2020-12-03 06:20] LABS: Glucose,Whole Blood 140 mg/dL (75-99)
[2020-12-03] MEDS: INSULIN ASPART (NovoLOG) 100 UNIT/ML VIAL SQ SCH ×2 (06:36→13:02)
[2020-12-03] MEDS: carvediloL 12.5 MG TAB PO SCH (06:36)
[2020-12-03] MEDS: PANTOPRAZOLE 40 MG TABLET PO SCH (06:36)
[2020-12-03 08:09] LABS: Basophils % (A) 0 %; Eosinophils # (A) 0.1 k/uL (0-0.7); Eosinophils % (A) 3 %; HCT 33.1 % (34.0-46.0); HGB 10.3 gm/dL (11.4-16.0); Hypochromasia Slight; Lymphocytes # (A) 0.7 k/uL (1.0-4.8); Lymphocytes % (A) 16 %; MCH 28.1 pg (25.0-35.0); MCHC 31.1 g/dL (31.0-37.0); MCV 90.1 fL (80.0-100.0); Mean Platelet Volume 9.5; Monocytes # (A) 0.2 k/uL (0-1.0); Monocytes % (A) 5 %; Neutrophils # (A) 3.3 k/uL (1.3-7.7); Neutrophils % (A) 76 %; Platelet Count 140 k/uL (150-450); RBC 3.67 m/uL (3.80-5.40); RDW 15.9 % (11.5-15.5); WBC 4.4 k/uL (3.8-10.6)
[2020-12-03 08:35] LABS: Albumin 2.6 g/dL (3.5-5.0); Calcium 8.7 mg/dL (8.4-10.2); Potassium 4.5 mmol/L (3.5-5.1); Total Bilirubin 0.3 mg/dL (0.2-1.3); Total Protein 5.2 g/dL (6.3-8.2)
[2020-12-03] MEDS: hydrALAZINE HCL 50 MG TAB PO SCH ×2 (09:13→13:02)
[2020-12-03] MEDS: SENNOSIDES-DOCUSATE SODIUM 1 EACH TAB PO SCH (09:14)
[2020-12-03] MEDS: ENOXAPARIN 40 MG/0.4 ML SYRINGE SQ SCH (09:14)
[2020-12-03] MEDS: lisinopriL 20 MG TAB PO SCH (09:14)
--- NOTE | 2020-12-03 09:54 | P.PN ---
Subjective Progress Note Date: 12/03/20 12/03/2020, the patient has recovered from her DKA. Currently she is on Levemir insulin 12 units in addition to Humalog sliding scale coverage. Her blood sugar control has been adequate and the patient's blood sugar from this morning was 108. Serum bicarb was 24. Anion gap was at 2. Normal renal function. Normal LFTs. Normal electrolytes. Clinically doing well. She has no specific complaints. No nausea. No vomiting. No emesis. Urine output is adequate. White cell count is at 4.4. Objective - Vital Signs Vital signs: Vital Signs Temp 97.0 F L 12/03/20 03:40 Pulse 77 12/03/20 03:40 Resp 16 12/03/20 03:40 BP 138/74 12/03/20 03:40 Pulse Ox 98 12/03/20 03:40 Intake & Output 12/02/20 12/03/20 12/03/20 18:59 06:59 18:59 Intake Total 55 1185 240 Output Total 305 200 Balance -250 985 240 Weight 70.4 kg Intake: IV 55 0.9 40 0.9ns for leslie 15 Oral 1185 240 Output: Urine 305 200 Other: Voiding Method Indwelling Catheter Toilet # Voids 1 1 ABP, PAP, CO, CI - Last Documented Arterial Blood Pressure 138/56 - Exam The patient appeared well nourished and normally developed. Vital signs as documented. Head exam is unremarkable. No scleral icterus or corneal arcus noted. Neck is without jugular venous distension, thyromegaly, or carotid bruits. Carotid upstrokes are brisk bilaterally. Lungs are clear to auscultation and percussion. Cardiac exam reveals the PMI to be normally sized and situated. Rhythm is regular. First and second heart sounds normal. No murmurs, rubs or gallops. Abdominal exam reveals normal bowel sounds, no masses, no organomegaly and no aortic enlargement. Extremities are nonedematous and both femoral and pedal pulses are normal. - Labs CBC & Chem 7: 12/03/20 07:18 12/03/20 07:18 Labs: Abnormal Lab Results - Last 24 Hours (Table) 12/02/20 12/02/20 12/02/20 Range/Units 12:39 16:48 21:01 RBC (3.80-5.40) m/uL Hgb (11.4-16.0) gm/dL Hct (34.0-46.0) % RDW (11.5-15.5) % Plt Count (150-450) k/uL Lymphocytes # (1.0-4.8) k/uL Sodium (137-145) mmol/L Chloride (98-107) mmol/L BUN (7-17) mg/dL Glucose (74-99) mg/dL POC Glucose (mg/dL) 191 H 166 H 219 H (75-99) mg/dL Total Protein (6.3-8.2) g/dL Albumin (3.5-5.0) g/dL 12/03/20 12/03/20 12/03/20 Range/Units 02:49 06:19 07:18 RBC 3.67 L (3.80-5.40) m/uL Hgb 10.3 L (11.4-16.0) gm/dL Hct 33.1 L (34.0-46.0) % RDW 15.9 H (11.5-15.5) % Plt Count 140 L (150-450) k/uL Lymphocytes # 0.7 L (1.0-4.8) k/uL Sodium (137-145) mmol/L Chloride (98-107) mmol/L BUN (7-17) mg/dL Glucose (74-99) mg/dL POC Glucose (mg/dL) 71 L 140 H (75-99) mg/dL Total Protein (6.3-8.2) g/dL Albumin (3.5-5.0) g/dL 12/03/20 Range/Units 07:18 RBC (3.80-5.40) m/uL Hgb (11.4-16.0) gm/dL Hct (34.0-46.0) % RDW (11.5-15.5) % Plt Count (150-450) k/uL Lymphocytes # (1.0-4.8) k/uL Sodium 135 L (137-145) mmol/L Chloride 109 H (98-107) mmol/L BUN 24 H (7-17) mg/dL Glucose 108 H (74-99) mg/dL POC Glucose (mg/dL) (75-99) mg/dL Total Protein 5.2 L (6.3-8.2) g/dL Albumin 2.6 L (3.5-5.0) g/dL Microbiology - Last 24 Hours (Table) 12/01/20 00:30 Blood Culture - Preliminary Blood No Growth after 48 hours 11/30/20 15:36 Blood Culture - Preliminary Blood No Growth after 48 hours Assessment and Plan Plan: #1. Acute diabetic ketoacidosis, recovered #2. Hypotension , recovered to fluid resuscitation #3. Recent hospitalization for hyperglycemia, and diabetic ketoacidosis, discharged home on 11/28/2020 #4. Acute kidney injury, improved, recovered #5. Hyperkalemia, hyponatremia due to severe dehydration, resolved #7. Anion gap metabolic acidosis related to DKA, resolved #8. Diabetes mellitus type 1, with diabetic neuropathy previous episodes of DKA #9. Coronary artery disease #10. Hypertension #11. Hyperlipidemia #12. Lifetime nonsmoker #13. Previous episode of DVT #14. Osteoarthritis #15. Chronic low back pain #16. Previous episode of pneumothorax in the remote past Plan: Clinically patient has remained stable Patient continues on combination of Levemir and sliding scale Humalog Discontinue Wilson catheter, increase activity as tolerated Today, the patient can be discharged home.
--- NOTE | 2020-12-03 11:33 | P.DS ---
Providers Date of admission: 11/30/20 14:20 Expected date of discharge: 12/03/20 Attending physician: Mary Heath Consults: 11/30/20 14:20 Consult Physician Stat Consulting Provider: Kim Causey Consult Reason/Comments: icu patient Do you want consulting provider notified?: Yes Primary care physician: Mary Heath Hospital Course: HISTORY OF PRESENT ILLNESS: This is a 70 -year-old -[place] female with a previous medical history significant for hypertension and hypertensive cardiovascular disease, hyperlipidemia, diabetes mellitus type 1 with diabetic polyneuropathy, PAD, CAD post PCI in 2010 ,history of narcolepsy, history of osteoarthritis. Patient has had multiple admissions to both [facility] and [facility] for DKA. Her most recent hospitalization was 11/1709/. Patient states that she went home and she took her nighttime insulin but in the morning on the following afternoon it seems that she did not take any insulin as would normally be scheduled. She then developed vomiting, no diarrhea. She denies any shortness of breath. She had significant weakness and came in the hospital for further evaluation and route, patient was found to have systolic blood pressure in the 80s and was given 1/2 L of IV fluids. When patient arrived to the emergency center glucose was 785, acetone positive. Blood gas revealed pH 7.1 with bicarb 7 and pCO2 20. Serum sodium was 129, potassium 6.2, bicarbonate concentration 5. BUN 46, creatinine 2.11, LFTs were within normal limits, urinalysis showed 4+ glucose and 1+ ketones. WBC 4.2, hemoglobin 11.3. Correlation profile was unremarkable. Patient was started on insulin infusion per DKA protocol, she was given additional fluid volume in the emergency departm ent. CT of the brain revealed age-related atrophic and chronic small vessel ischemic changes without acute intracranial process. CT of the chest, abdomen and pelvis showed possibly a small amount of air anterior to the heart bilateral pleural effusions and bilateral lateral basilar infiltrates, cardiomegaly, severely limited assessment of the abdomen, bowel gas pattern nonspecific, small amount of peritoneal fluid. Echocardiogram revealed EF of 55-60% with moderate concentric left hypertrophy, mild mitral regurgitation, moderate tricuspid regurgitation, mild pulmonary hypertension. Temperature was 91.8, heart rate in the 70s, blood pressure 58/40, pulse ox 99% on 2 L. EKG showed normal sinus rhythm. Patient was started on Norepinephrine and Ty Hugger applied, seen by mail carrier and admitted to the intensive care unit. Patient is seen today in the intensive care unit. 12/02: Patient's temperature is normalized running 98, she is no longer requiring Ty hugger. Heart rate in the 70s, blood pressure 160/83, pulse ox 95% on 4 L nasal cannula. Repeat blood work reveals WBC 11, hemoglobin 10.2, platelet count 155. Sodium 135, potassium 4.3, chloride 112, CO2 18, anion gap 5, BUN 30 creatinine 1.1. Blood sugars have been labile and patient had a reading of 38 at 2 AM, currently 118 at 7 AM. Blood cultures are no growth after 24 hours 2 specimens. Patient is off insulin drip. Yesterday, patient was given Levemir 14 units at bedtime this will be changed to 12 units which is her home dose. She is eating regular CC diet. She will also be resumed on hydralazine at home dose of 100mg am, 50 mg noon, 100 mg evening. Patient will be transferred to the cardiac stepdown unit. She has had good urine output, Wilson catheter may be removed. Discharge diagnoses: 1. Diabetic ketoacidosis. 2. Hypovolemic shock, resolved. 3. Acute kidney injury, resolved. 4. Hyperkalemia secondary to acute kidney injury. 5. Hyponatremia secondary to DKA/hyperglycemia. 6. Diabetes mellitus type 1 with diabetic polyneuropathy. 7. Hypertension and hypertensive cardiovascular disease. 8. Hyperlipidemia. 9. CAD post-PCI in 2010. 10. History of PAD with a recent callus of the right foot. 11. History of narcolepsy Patient Condition at Discharge: Fair Plan - Discharge Summary Discharge Rx Participant: No New Discharge Prescriptions: No Action hydrALAZINE HCL [Apresoline] 50 mg PO TID Carvedilol [Coreg] 12.5 mg PO BID Insulin Lispro [humaLOG Kwikpen] 12 unit SQ AC-TID #0 lisinopriL 20 mg PO BID Sennosides-Docusate Sodium [Senokot-S] 2 tab PO DAILY PRN PRN Reason: Constipation Discharge Medication List Carvedilol [Coreg] 12.5 mg PO BID 04/15/20 [History] hydrALAZINE HCL [Apresoline] 50 mg PO TID 04/15/20 [History] lisinopriL 20 mg PO BID 11/27/20 [History] Insulin Lispro [humaLOG Kwikpen] 12 unit SQ AC-TID #0 11/28/20 [Rx] Sennosides-Docusate Sodium [Senokot-S] 2 tab PO DAILY PRN 11/30/20 [History] Follow up Appointment(s)/Referral(s): Mary Heath MD [Primary Care Provider] - 1-2 days [facility], [REFERRING] - 1-2 Days
[2020-12-03 11:50] LABS: Glucose,Whole Blood 140 mg/dL (75-99)
[2020-12-03 11:54] VITALS: BP 152/86; PULSE 83; TEMP 98.3
== END 2020-12-03 13:08 | disposition home health service (06) | DRG 637 ==
LOC: EC 11:16 → 2SICU 14:20 → 3SCARD 12-02 21:54
PROVIDERS: ADMIT Internal Medicine; ATTEND Internal Medicine
PROC: 02HV33Z Insertion of Infusion Device into Superior Vena Cava, Percutaneous Approach (ICD-10-PCS; principal; 2020-11-30)
DX: E10.10 Type 1 diabetes mellitus with ketoacidosis without coma (principal); R57.1 Hypovolemic shock; E87.1 Hypo-osmolality and hyponatremia; N17.9 Acute kidney failure, unspecified; E10.42 Type 1 diabetes mellitus with diabetic polyneuropathy; E78.5 Hyperlipidemia, unspecified; E86.0 Dehydration; E87.5 Hyperkalemia; Z87.891 Personal history of nicotine dependence; G89.29 Other chronic pain; I08.1 Rheumatic disorders of both mitral and tricuspid valves; I11.9 Hypertensive heart disease without heart failure; I25.10 Atherosclerotic heart disease of native coronary artery without angina pectoris; I27.20 Pulmonary hypertension, unspecified; M19.90 Unspecified osteoarthritis, unspecified site; Z79.4 Long term (current) use of insulin; Z79.899 Other long term (current) drug therapy; Z82.0 Family history of epilepsy and other diseases of the nervous system; Z82.3 Family history of stroke; Z82.49 Family history of ischemic heart disease and other diseases of the circulatory system; Z83.3 Family history of diabetes mellitus; Z86.718 Personal history of other venous thrombosis and embolism; Z90.710 Acquired absence of both cervix and uterus; Z98.61 Coronary angioplasty status; Z86.16 Personal history of COVID-19; G47.419 Narcolepsy without cataplexy; F41.9 Anxiety disorder, unspecified
CPT/HCPCS: 36415; 70450; 71250; 74176; 80048; 80051; 80053; 81003; 82009; 82565; 82803; 82947; 83605; 83735; 84100; 84484; 84520; 85025; 85610; 85730; 87040; 93005; 93306; 96361; 96374; 99291